=== PATIENT | male | born 1985 | race Caucasian/White ===

== ENCOUNTER 2019-06-29 07:37 | Emergency (ER) | payer MEDICARE, MEDICAID, SELFPAY ==
[2019-06-29 07:38] VITALS: BP 202/112; PULSE 62; RESP 17; TEMP 36.2; O2SAT 96; BMI 39.9
--- NOTE | 2019-06-29 08:07 | ED.DCSUM_ITS ---
- ER Visit Summary Date of Service: 06/29/19 Chief Complaint: Dental pain History of Present Illness: The patient is a 34 M who presents with right-sided dental pain that has been getting worse over the past 5 days. Patient describes his pain as aching. Patient states he knows he has dental caries over the right upper second molar but has not seen a dentist about this. Patient states the pain is worse when he lays flat. Patient admits to some swelling of his upper jaw. Patient also admits to hot and cold sensitivity. Patient denies any fevers but admits to subjective chills. Patient states the pain causes him to have some shortness of breath and palpitations at times. Physical Examination: Vital signs are stable except for an elevated blood pressure of 202/112. Patient is afebrile. Patient is in no acute distress. Oral mucosa is pink and moist. Oropharynx is clear. There is a large dental carry noted over the right upper second premolar. There is also a dental carry over the right upper second molar. There is tenderness to percussion on these teeth. There is no fluctuance. There is some mild gingival edema. There is no evidence of any abscess. There is no sublingual edema or erythema. Heart was regular rate and rhythm. Lungs showed few scattered wheezes. There is good respiratory effort noted. Emergency Department Course and Treatment: Patient was given a dose of amoxicillin and [place] here. Patient was given a prescription for amoxicillin. Patient was instructed to take Tylenol or ibuprofen as needed for pain. Patient was instructed to follow-up with his dentist in 5 to 7 days. Patient understood and was agreeable with the plan. All questions were answered. Disposition: Discharge home Impression: Infected dental caries This note was generated with [employer] dictation software. It may contain incorrect words, spelling, and punctuation that were not noted in review of the chart prior to signing ED Disposition - Plan for ED Patient: Disposition: Home or Assisted Living Diagnosis: Infected dental caries Prescriptions: Amoxicillin 500 mg PO TID #30 tab Prescription Printed Referrals: Darrius Dale MD [Primary Care Provider] - 5-7 Days Additional Instructions: Follow-up with your dentist in 5 to 7 days for definitive care of your teeth.
[2019-06-29] MEDS: AMOXICILLIN 500 MG CAPSULE PO (08:30)
[2019-06-29] MEDS: HYDROcodone Bitartrate/Apap 5/325 Tablet PO (08:30)
== END 2019-06-29 08:34 | disposition home or self-care (01) ==
LOC: ED 08:13
PROVIDERS: Emergency Provider Emergency Medicine; Family Provider Family Medicine; PCP Family Medicine
DX: K04.7 Periapical abscess without sinus (principal); K02.9 Dental caries, unspecified; Z72.0 Tobacco use
CPT/HCPCS: 99283

== ENCOUNTER → 2021-02-08 15:38 | Outpatient (CLI) | payer MEDICARE, MEDICAID, SELFPAY ==
[2021-02-08 16:55] LABS: Erythrocyte Sedimentation Rate 3 mm/hr (0-20)
[2021-02-08 16:58] LABS: CRP 3.44 mg/L (0.0-3.0); Rheumatoid Factor < 10.0 IU/mL (<15)
[2021-02-12 07:31] LABS: ANTINUCLEAR ANTIBODIES DIRECT Negative (Negative)
[2021-02-14 08:54] LABS: CCP IgG Antibodies 18 units (0-19)
== END ==
PROVIDERS: PCP Family Medicine; Visit Provider Family Medicine
DX: M25.50 Pain in unspecified joint (principal)
CPT/HCPCS: 36415; 85652; 86038; 86140; 86200; 86431

== ENCOUNTER 2021-04-27 14:37 | Emergency (ER) | payer MEDICARE, MEDICAID, SELFPAY ==
[2021-04-27 14:38] VITALS: BP 168/93; PULSE 80; RESP 16; TEMP 36.7; O2SAT 97; BMI 38.4
== END 2021-04-27 15:06 | disposition left against medical advice (07) ==
LOC: ED 16:00
PROVIDERS: PCP Family Medicine
DX: Z53.21 Procedure and treatment not carried out due to patient leaving prior to being seen by health care provider (principal)

== ENCOUNTER 2022-02-20 11:50 | Emergency (ER) | payer MEDICARE, MEDICAID, SELFPAY ==
[2022-02-20 11:51] VITALS: BP 137/93; PULSE 87; RESP 16; TEMP 36.2; O2SAT 100; BMI 30.3
== END 2022-02-20 12:25 | disposition left against medical advice (07) ==
LOC: ED 12:25
PROVIDERS: PCP Family Medicine
DX: Z53.21 Procedure and treatment not carried out due to patient leaving prior to being seen by health care provider (principal)

== ENCOUNTER 2022-07-09 08:38 | Emergency (ER) | payer MEDICARE, MEDICAID, SELFPAY ==
[2022-07-09 08:39] VITALS: BP 159/90; PULSE 70; RESP 18; TEMP 36.6; O2SAT 95; BMI 30.9
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
--- NOTE | 2022-07-09 08:51 | RAD_ITS ---
STUDY: X-RAY - UNILATERAL RIBS ( RIGHT ) WITH CHEST REASON FOR EXAM: Male, 37 years old. Injury, pain TECHNIQUE - RIBS: 4 view(s) of the ribs. TECHNIQUE - CHEST: Single PA view of the chest. COMPARISON: None. FINDINGS - RIBS: Normal visualized ribs without a demonstrated fracture. FINDINGS - CHEST: The lungs are clear and expanded. There is no demonstrated pleural abnormality. Normal size heart. Normal mediastinum and anila. Normal visualized pulmonary arteries. Normal visualized aortic arch and descending thoracic aorta. Normal visualized thoracic spine. Normal visualized ribs, clavicles, and shoulders. There is no demonstrated abnormality of the visualized soft tissue structures of the upper abdomen. RAD/Ribs Uni Min 3V w/PA Chest IMPRESSION: RIBS: Normal x-ray examination of the ribs. CHEST: Normal x-ray examination of the chest. Electronically Signed: Shawn Dey MD at 9:39 EDT ,
--- NOTE | 2022-07-09 10:03 | ED.RN ---
PT LEFT. REPORTS HAS TO MEET HIS LANDLORD.
== END 2022-07-09 10:06 | disposition left against medical advice (07) ==
LOC: ED 09:27
PROVIDERS: Emergency Provider Emergency Medicine; Visit Provider Emergency Medicine
DX: S20.211A Contusion of right front wall of thorax, initial encounter (principal); F17.210 Nicotine dependence, cigarettes, uncomplicated; W19.XXXA Unspecified fall, initial encounter
CPT/HCPCS: 71101; 99282

== ENCOUNTER 2022-08-09 23:20 | Emergency (ER) | payer MEDICARE, MEDICAID, SELFPAY ==
[2022-08-09 23:21] VITALS: BP 146/92; PULSE 90; RESP 16; TEMP 35.6; BMI 33.4
[2022-08-09 23:23] VITALS: BP 146/92; PULSE 90; RESP 16; TEMP 35.6
--- NOTE | 2022-08-09 23:57 | ED.VIS.DENTA ---
HPI History of Present Illness Chief Complaint: Dental Informant: patient Onset/Context/Timing Onset: Month(s) (several) Context: Gradual Onset Timing: Continuous and Waxes and wanes Quality: throbbing Location: entire mouth, but usually is R mandibular molar Current Severity: Severe Maximum Severity: Severe Worsened by: air, food/water, chewing Relieved by: - (nothing despite multiple pain medications, but Antibiotics have helped) Associated Symptoms Assocated Symptom - Dental: Negative for fever, jaw swelling or face swelling Narrative Narrative: Patient states he has been dealing with pain and problems with teeth for months. He states he was on laxatives and lost a lot of weight and since then he has had dental problems that he never had. He has seen a dentist for this issue, he was told that the tooth that is the problem which is a right mandibular molar has a filling in it, however there is a crack in the tooth somewhere, he needs a root canal and a redo on the filling, he is on a waiting list and is supposed to have all this done in maybe 3 weeks. In that period of time he has been on several courses of antibiotics, the last time he took an antibiotic dose was about 3 weeks ago. Initially he was on amoxicillin and it did not seem to help and then clindamycin did seem to help for about a week or 2, but things have gradually become worse, now he states my entire mouth hurts and it is radiating into both ears and the back of my neck. He denies any fevers, chills, bleeding, purulent discharge, or other symptoms. No headache. He has tried prescription pain medications, [id number] NSAIDs and Tylenol and nothing helps so he has avoided all of those medications recently and just wants antibiotics. [facility] Medical History Bipolar disorder Depression Obsessive compulsive disorder Home Medications clindamycin HCl 150 mg capsule 300 mg PO 4X/DAY #80 CAPSULES 08/09/22 [Rx Last Taken Unknown] Allergy/AdvReac Type Severity Reaction Status Date / Time iodine Allergy Rash Verified 07/09/22 08:41 shellfish derived Allergy Anaphylaxis Verified 07/09/22 08:41 Social History Smoking Status: Current every day smoker tobacco type: cigarettes ROS ROS ED Constitutional Constitutional ED: Denies chills or fever(s) Eyes Eyes: Denies change in vision or double vision ENT ENT ED: Reports dental pain, ear pain bilateral and sinus pain; Denies rhinorrhea, sore throat or throat swelling Cardiovascular Cardiovascular: Denies chest pain or palpitations Respiratory/Chest Respiratory/Chest: Denies cough or dyspnea Integumentary Denies abscess or rash Neurologic Neurologic: Denies headache(s), paresthesias or weakness EXAM Physical Exam Const Vital Signs: 08/09/22 23:21 08/09/22 23:23 Temperature 96.0 F L 96.0 F L Temperature Source Temporal Temporal Pulse Rate 90 90 Respiratory Rate 16 16 Blood Pressure 146/92 H 146/92 H Blood Pressure Mean 110 110 Positive well nourished and well developed General Appearance ED: well developed and NAD HEENT Reports TM's clear Face and Sinus: sinuses nontender Tympanic Membrane ED: Yes TM's clear Mouth ED: Yes oral and palatal mucosa normal, Yes lips normal, Yes tongue normal, No oral and palatal mucosa abnormal and No salivary gland abnormal Mouth: oral and palatal mucosa normal, lips normal, tongue normal, No oral and palatal mucosa abnormal and No salivary gland abnormal Teeth and Gingiva: Negative for abnormal tooth and associated gingiva or caries Throat: posterior oropharynx normal Eyes PERRL and EOMs intact bilaterally Neck no lymphadenopathy and supple Resp normal respiratory effort Neuro oriented x3 and CN's II-XII intact bilaterally Sensorium / Orientation: alert Gait (Neuro): normal gait Psych mental status grossly normal and thought process normal Skin no rashes or lesions noted and no wounds MDM MDM MDM Narrative Medical decision making narrative: Patient has no trismus, he has normal oropharynx. There is no gingival abnormality or signs of infection or bleeding or hypertrophy/swelling/abscess. His exam is essentially normal. He really is perseverating on all of this, and states that his entire mouth/dentition/gingiva all hurt equally. He has some minor tenderness on the affected molar which is #30. I offered a CT to prove that he does not have some type of deep tissue infection, he declines and does not want it. Just wants antibiotics because that is the only thing that seemed to help and he does not want any pain medications. He is usually constipated, and states he did not have diarrhea with the other courses. Started on clindamycin and referred back to dentistry. Discharge Plan Triage Chief Complaint: Dental ED Provider: Chriss Tracey Dx/Rx/DC Orders Clinical Impression: Odontalgia Instructions: ED Dental Pain Prescriptions: New clindamycin HCl 150 mg capsule 300 mg PO 4X/DAY Qty: 80 0RF Primary Care Provider: Care Physician,No Primary Referrals: Care Physician,No Primary [Primary Care Provider] - Dentist,Your [STAFF PHYSICIAN] - As soon as possible Disposition Disposition: Home, Self Care
[2022-08-10] MEDS: Clindamycin HCl 150 MG Capsule 300 MG PO (00:05)
[2022-08-10 00:11] VITALS: BP 144/88; PULSE 74; RESP 15; TEMP 37.1; O2SAT 99
== END 2022-08-10 00:13 | disposition home or self-care (01) ==
LOC: ED 23:59
PROVIDERS: Emergency Provider Emergency Medicine; Visit Provider Emergency Medicine
DX: K08.89 Other specified disorders of teeth and supporting structures (principal); F17.210 Nicotine dependence, cigarettes, uncomplicated
CPT/HCPCS: 99283

== ENCOUNTER 2023-04-13 14:01 | Emergency (ER) | payer MEDICARE, MEDICAID, SELFPAY ==
[2023-04-13 14:02] VITALS: BP 162/95; PULSE 120; RESP 25; TEMP 36.8; O2SAT 100; BMI 31.4
[2023-04-13 14:05] VITALS: PULSE 115; RESP 26; O2SAT 99
--- NOTE | 2023-04-13 14:11 | CT_ITS ---
EXAM: CT HEAD WITHOUT INTRAVENOUS CONTRAST CLINICAL INDICATION: mental status change TECHNIQUE: Multiple axial images were obtained of the head without intravenous contrast. This CT exam was performed using one or more of the following dose reduction techniques: automated exposure control, adjustment of the mA and/or kV according to patient size, and/or use of iterative reconstruction technique. RADIATION DOSE: CTDIvol = 47.06 mGy, DLP = 943.26 mGy-cm COMPARISON: No relevant prior studies available. FINDINGS: BRAIN AND EXTRA-AXIAL SPACES: Unremarkable. No intra- or extra-axial hemorrhage. No evidence of acute infarct. No intracranial mass or mass effect. There is preservation of the lee/white matter interface. Posterior fossa structures are unremarkable. Ventricles are appropriate for age. No hydrocephalus. Basal cisterns are patent. BONES/JOINTS: Unremarkable. No discrete lytic or blastic abnormalities. SINUSES: Unremarkable as visualized. Clear. MASTOID AIR CELLS: Unremarkable. Clear. ORBITS: Visualized globes, extraocular muscles, optic nerves and retrobulbar fat appear unremarkable. CT/Brain/Head without Contrast IMPRESSION: Negative head/brain CT without intravenous contrast. Electronically Signed: David Ledbetter MD at 14:45 EDT ,
--- NOTE | 2023-04-13 14:11 | EKG12_ITS ---
Test Reason : Blood Pressure : / mmHG Vent. Rate : 117 BPM Atrial Rate : 117 BPM P-R Int : 148 ms QRS Dur : 094 ms QT Int : 336 ms P-R-T Axes : 065 073 -28 degrees QTc Int : [address] & T wave abnormality, consider inferolateral ischemia Abnormal ECG Confirmed by DIANE ALANIS, SHELLY ([id number]), assistant editor [place]ERMIN[place] ([id number]) on 04/15/2023 10:47:56 AM Referred By: ARNAUD Confirmed By:SHELLY CONTRERAS MD
--- NOTE | 2023-04-13 14:12 | ED.RN ---
NO STROKE TEAM PER DR LARES
--- NOTE | 2023-04-13 14:13 | ED.RN ---
PT DOES ADMIT TO EATING EDIBLES EARLIER
--- NOTE | 2023-04-13 14:19 | RAD_ITS ---
EXAM: XR CHEST, 1 VIEW CLINICAL INDICATION: Shortness of Breath TECHNIQUE: Frontal view of the chest. COMPARISON: 8.9.22 FINDINGS: LUNGS AND PLEURAL SPACES: Unremarkable. No consolidation or edema. No pneumothorax. No effusion. HEART: Unremarkable. Cardiac silhouette not enlarged. MEDIASTINUM: Central airways and mediastinal contour are unremarkable. BONES/JOINTS: Unremarkable. SOFT TISSUES: Unremarkable. RAD/Chest 1 View (Portable) IMPRESSION: No radiographic evidence of acute cardiopulmonary disease. Electronically Signed: David Ledbetter MD at 14:45 EDT ,
[2023-04-13 14:26] LABS: Bedside Glucose 82 mg/dL (74-106)
[2023-04-13 14:26] LABS: Absolute Lymphocyte Count 3.53 X10^3/uL (0.83-4.51); Absolute Neutrophil Count 8.4 X10^3/uL (2.0-7.7); Basophil# 0.07 X10^3/uL; Basophil% 0.5 % (0-1); Eosinophil# 0.18 X10^3/uL; Eosinophils% 1.4 % (0-5); Hematocrit 47.4 % (40-54); Hemoglobin 16.8 g/dL (13.0-16.5); Lymphocyte # 3.53 X10^3/ul (0.83-4.51); Lymphocyte % 26.7 % (19-41); Mean Corp Hgb Conc 35.4 g/dL (32-36); Mean Corpuscular Hgb 31.9 pg (27.0-32.0); Mean Corpuscular Volume 89.9 fL (80-94); Mean Platelet Vol. 10.4 fl (6.2-12.0); Monocyte# 1.02 X10^3/uL; Monocyte% 7.7 % (0-10); NRBC Flagged by Analyzer 0 % (0-5); Neutrophil # 8.38 X10^3/uL (2.7-7.7); Neutrophil % 63.4 % (47-70); Platelet Count 259 K/mm3 (150-450); RBC Distribution Width SD 39.3 fl (35.1-43.9); Red Blood Count 5.27 M/mm3 (4.6-6.2); White Blood Count 13.2 K/mm3 (4.4-11.0)
[2023-04-13 14:39] LABS: ALB/GLOB Ratio 1.2 RATIO (0.9-2.4); AST(SGOT) 26 U/L (15-37); Alanine Aminotransfer ALT/SGPT 23 U/L (16-61); Alkaline Phosphatase 55 U/L (45-117); Anion Gap 11 (5-15); BUN 15 mg/dL (7-18); BUN/Creat Ratio 13.4 RATIO (10-20); Chloride 103 mmol/L (98-107); Creatinine, Serum 1.12 mg/dL (0.70-1.30); EST Glomerular Filtration Rate 79 mL/min (>60); Est Glom Filt Rate - Afr Amer 96 mL/min (>60); Estimated Creatinine Clearance 92.06 ml/min; Globulin 3.4 g/dL (2.2-4.2); Glucose 105 mg/dL (74-106); Potassium 2.9 mmol/L (3.5-5.1); Protein, Total 7.4 g/dL (6.4-8.2); Sodium Level 137 mmol/L (136-145); Troponin-I HS 5 pg/mL (3.0-78.0)
[2023-04-13 15:04] LABS: Alcohol, Blood (Medical)-Serum < 3.0 mg/dL
[2023-04-13] MEDS: 0.9% Normal Saline 1,000 ML 999 ML IV (15:15)
[2023-04-13] MEDS: Potassium Chloride Oral Tablet 20 MEQ 40 MEQ PO (15:15)
[2023-04-13 15:17] VITALS: BP 133/84; PULSE 90; RESP 22; O2SAT 96
--- NOTE | 2023-04-13 15:36 | EX.ED.DYSGE1 ---
HPI History of Present Illness Chief Complaint: Shortness of Breath Narrative Narrative: 37-year-old male who denies significant past medical history presents with multiple somatic complaints. I was called to the room to see the patient because he was reportedly slumped over in his wheelchair. Upon arrival to the room, he is awake, but mildly dysarthric. He states that his mouth is burning and that is tongue turned blue. Initially, he denies ingesting any medications or substances, and presented because of the mental status change. He states that last night he was short of breath but denies any fevers or chills. No cough, or other symptoms. [facility] Medical History Bipolar disorder Depression Obsessive compulsive disorder Home Medications clindamycin HCl 150 mg capsule 300 mg PO 4X/DAY #80 CAPSULES 08/09/22 [Rx Last Taken Unknown] Allergy/AdvReac Type Severity Reaction Status Date / Time iodine Allergy Rash Verified 07/09/22 08:41 shellfish derived Allergy Anaphylaxis Verified 07/09/22 08:41 Social History Smoking Status: Current every day smoker tobacco type: cigarettes ROS ROS ED ROS Narrative Constitutional: No fever, no chills. States feels shaky. HEENT: No sore throat. No neck pain. No loss of vision. No rhinorrhea. Blue tongue. Cardiovascular: No chest pain. No palpitations. No pedal edema. Respiratory: No cough, positive shortness of breath. Abdominal: No abdominal pain. No nausea. No vomiting. Genitourinary: No dysuria. No hematuria. Musculoskeletal: No myalgias. No arthralgias. Multiple muscle spasms. Neurologic: No headaches. No dizziness. No lightheadedness. Problems speaking. Skin: No rash. No change in color. Psychiatric: No depression. No anxiety. EXAM Physical Exam Narrative Exam Narrative: Afebrile. Vital signs noted. HEENT: Normocephalic. Atraumatic. PERRL, EOMI. Neck soft and supple. No point tenderness or step off. Light blue/aqua tongue Cardiovascular: Tachycardia, no murmurs, rubs, or gallops appreciated. Respiratory: No tachypnea. Lungs clear to auscultation bilaterally. Gastrointestinal: Abdomen soft, nontender, with normoactive bowel sounds. No rebound or guarding. Neurological: Awake. Alert. Oriented x3. Nonfocal, nonlateralizing. Mild dysarthria, inconsistent. Skin: No rash. Normal color. No pallor. Musculoskeletal: No pedal edema. Full range of motion extremities. Const Vital Signs: 04/13/23 14:02 04/13/23 14:05 04/13/23 14:06 Temperature 98.2 F Temperature Source Oral Pulse Rate 120 H 115 H Respiratory Rate 25 H 26 H Respiratory Effort Short of Breath Blood Pressure 162/95 H Blood Pressure Mean 117 Pulse Ox 100 99 Oxygen Delivery Method Room Air Room Air 04/13/23 15:17 Temperature Temperature Source Pulse Rate 90 Respiratory Rate 22 H Respiratory Effort Blood Pressure 133/84 H Blood Pressure Mean 100 Pulse Ox 96 Oxygen Delivery Method Nasal Cannula MDM MDM MDM Narrative Medical decision making narrative: Comprehensive work-up was pursued. His pulse ox is 100% on room air without evidence of hypoxia. He was put on nasal cannula oxygen for comfort. I do not feel that stroke team is indicated. He states he started having problems with speech 20 minutes prior to arrival perhaps, but his exam is inconsistent. Additionally, RN spoke with the patient and he admitted to taking 1 edible this morning. He states that he bought them from a store that sells THC products, and he has taken them before, but his tongue has never turned blue. In review of his laboratory work, he has elevated white count of 13.2 which I think is nonspecific. Hemoglobin is slightly hemoconcentrated at 16.8. Platelet count normal at 259. Potassium is low at 2.9 which was replaced orally with 40 mill equivalents. BUN normal at 15 and creatinine normal at 1.12. LFTs are normal. High-sensitivity troponin is 5. EKG was obtained and interpreted by myself as sinus tachycardia at 117 bpm without ectopy or acute ST changes. No STEMI. Upon repeat examination, he has a normal heart rate in the 80s, and at 1517, heart rate was 90. He is no longer tachycardic. Ethyl alcohol is negative. Urine for drugs of abuse is currently pending. His dysarthria is improving slightly, and sometimes is inconsistent. He does not have an expressive aphasia that is noticeable currently. I reviewed the CT of his brain and the radiology report which shows no acute process or mass. Additionally, chest x-ray was obtained for his shortness of breath and interpreted by myself independently. I see no evidence of pneumonia, and do not feel that antibiotics are indicated. There is no pneumothorax. I do feel that his mental status change may have been secondary to overdose/THC. At approximately 1615, upon repeat examination, he is speaking normally and feels improved after IV fluids. I reviewed his urine for drugs of abuse and is positive for cannabinoids. He does admit that he took 4 of the edible Gummies yesterday, and 1 today. I do feel that his mental status change and dysarthria was best explained by intoxication with THC. At this point in time, as he is speaking normally and feels improved, I feel he can be discharged safely home with follow-up. He was referred to a primary care provider. He was told to avoid use of THC in the future. Return instructions were reviewed. Disposition is discharged home in stable condition. History & Record Review Discussion w/independent historian: Patient and Family Additional record(s) reviewed:: Prior ED visit Lab Data Attestation: I reviewed the patient's lab results. Labs: Laboratory Results - last 24 hr 04/13/23 04/13/23 04/13/23 14:06 14:16 14:16 WBC 13.2 H RBC 5.27 Hgb 16.8 H Hct 47.4 MCV 89.9 MCH 31.9 MCHC 35.4 RDW Std Deviation 39.3 RDW Coeff of Nichelle 12.0 Plt Count 259 MPV 10.4 Immature Gran % (Auto) 0.300 Neut % (Auto) 63.4 Lymph % (Auto) 26.7 Grady % (Auto) 7.7 Eos % (Auto) 1.4 Baso % (Auto) 0.5 Absolute Neuts (auto) 8.4 H Absolute Lymphs (auto) 3.53 Nucleated RBC % 0 Sodium 137 Potassium 2.9 L Chloride 103 Carbon Dioxide 23.0 Anion Gap 11 BUN 15 Creatinine 1.12 Estim Creat Clear Calc 92.06 Est GFR (MDRD) Af Amer 96 Est GFR (MDRD) Non-Af 79 BUN/Creatinine Ratio 13.4 Glucose 105 Calcium 9.0 Total Bilirubin 0.50 AST 26 ALT 23 Alkaline Phosphatase 55 Troponin I High Sens 5 Total Protein 7.4 Albumin 4.0 Globulin 3.4 Albumin/Globulin Ratio 1.2 Urine Opiates Screen Urine Methadone Screen Ur Barbiturates Screen Ur Phencyclidine Scrn Ur Amphetamines Screen MDMA (Ecstasy) Screen U Benzodiazepines Scrn Urine Cocaine Screen U Cannabinoids Screen Ur Drug Screen Comment Ethyl Alcohol POC Glucose 82 04/13/23 04/13/23 14:16 15:40 WBC RBC Hgb Hct MCV MCH MCHC RDW Std Deviation RDW Coeff of Nichelle Plt Count MPV Immature Gran % (Auto) Neut % (Auto) Lymph % (Auto) Grady % (Auto) Eos % (Auto) Baso % (Auto) Absolute Neuts (auto) Absolute Lymphs (auto) Nucleated RBC % Sodium Potassium Chloride Carbon Dioxide Anion Gap BUN Creatinine Estim Creat Clear Calc Est GFR (MDRD) Af Amer Est GFR (MDRD) Non-Af BUN/Creatinine Ratio Glucose Calcium Total Bilirubin AST ALT Alkaline Phosphatase Troponin I High Sens Total Protein Albumin Globulin Albumin/Globulin Ratio Urine Opiates Screen NEGATIVE Urine Methadone Screen NEGATIVE Ur Barbiturates Screen NEGATIVE Ur Phencyclidine Scrn NEGATIVE Ur Amphetamines Screen NEGATIVE MDMA (Ecstasy) Screen NEGATIVE U Benzodiazepines Scrn NEGATIVE Urine Cocaine Screen NEGATIVE U Cannabinoids Screen POSITIVE H Ur Drug Screen Comment Ethyl Alcohol < 3.0 POC Glucose Radiography Diagnostic Testing: Clinical Impression(s) from Imaging Studies Brain CT 04/13/23 14:11 IMPRESSION: Negative head/brain CT without intravenous contrast. Electronically Signed: David Ledbetter MD at 14:45 EDT Reading Location ID and State: [facility] / [place] , Service support , Chest X-Ray 04/13/23 14:19 IMPRESSION: No radiographic evidence of acute cardiopulmonary disease. Electronically Signed: David Ledbetter MD at 14:45 EDT , Discharge Plan Triage Chief Complaint: Shortness of Breath ED Provider: Raymundo Snow Dx/Rx/DC Orders Clinical Impression: Dysarthria, Hypokalemia, Blue tongue, Marijuana use Instructions: ED Hypokalemia, ED Marijuana Abuse Prescriptions: No Action clindamycin HCl 150 mg capsule 300 mg PO 4X/DAY Qty: 80 0RF Primary Care Provider: Care Physician,No Primary Referrals: Gunner Borjas MD [Med Staff - Active Staff] - As soon as possible Care Physician,No Primary [Primary Care Provider] - Disposition Disposition: Home, Self Care
[2023-04-13 16:09] LABS: Amphetamine Urine VISTA NEGATIVE (<1000 ng/mL); Barbiturate Urine VISTA NEGATIVE (< 200 ng/mL); Benzodiazepine Urine VISTA NEGATIVE (< 200 ng/mL); Cocaine Urine VISTA NEGATIVE (< 300 ng/mL); Ecstacy Urine VISTA NEGATIVE (< 500 ng/mL); Methadone Urine VISTA NEGATIVE (< 300 ng/mL); PCP Urine VISTA NEGATIVE (< 25 ng/mL); THC Urine VISTA POSITIVE (< 50 ng/mL); Vista UDS pH Range 6
[2023-04-13 16:35] VITALS: BP 127/86; PULSE 86; RESP 16; O2SAT 99
== END 2023-04-13 16:37 | disposition home or self-care (01) ==
PROVIDERS: Emergency Provider Emergency Medicine; Visit Provider Emergency Medicine
DX: R47.1 Dysarthria and anarthria (principal); E87.6 Hypokalemia; F12.90 Cannabis use, unspecified, uncomplicated; F17.210 Nicotine dependence, cigarettes, uncomplicated; R41.82 Altered mental status, unspecified
CPT/HCPCS: 70450; 71045; 80053; 80307; 82077; 82962; 84484; 85025; 93005; 96360; 99284; J7030; A4216

== ENCOUNTER 2024-11-28 10:24 | Emergency (ER) | payer MEDICARE, MEDICAID, SELFPAY ==
[2024-11-28 10:25] VITALS: BP 141/87; PULSE 59; RESP 20; TEMP 35.9; O2SAT 100; BMI 29.5
--- NOTE | 2024-11-28 11:20 | EDS_ITS ---
HPI <MISAEL Daniel - Last Filed: 11/28/24 11:23> History of Present Illness Chief Complaint: Laceration Narrative Narrative: 39-year-old male presents with a laceration to his left index finger. He was cutting a bagel with a bread knife when it slipped and cut his finger. Bleeding is controlled. Last tetanus unknown. PFSH <MISAEL Daniel - Last Filed: 11/28/24 11:23> [facility] Medical History (Updated 11/28/24 @ 11:19 by MISAEL Daniel) Laceration Obsessive compulsive disorder Depression Bipolar disorder Home Medications ?Medication ?Instructions ?Recorded ?Last Taken ?Type NK 11/28/24 Unknown History Allergy/AdvReac Type Severity Reaction Status Date / Time iodine Allergy Rash Verified 11/28/24 10:26 shellfish derived Allergy Anaphylaxis Verified 11/28/24 10:26 Social History Smoking Status: Current every day smoker tobacco type: cigarettes ROS <MISAEL Daniel - Last Filed: 11/28/24 11:23> ROS ED ROS Narrative Neuro: Negative for motor/sensory dysfunction. Skin: Positive for laceration. Musc: Negative for joint pain, swelling. EXAM <MISAEL Daniel - Last Filed: 11/28/24 11:23> Physical Exam Narrative Exam Narrative: CONST: Patient sitting in no acute distress. EYES: Normal inspection. SKIN: 1.5 cm linear laceration left index finger on the radial aspect of the PIP joint to the level of the subcutaneous tissue. There is no visible tendon. Full range of motion of the left hand and digits, normal motor and sensory function in median radial ulnar distributions, 2+ radial pulse and brisk cap refill. There is no active bleeding, no foreign body. NEURO: Alert and answering questions appropriately. PSYCH: Normal affect. Const Vital Signs: 11/28/24 10:25 Temperature 96.7 F L Temperature Source Temporal Pulse Rate 59 L Respiratory Rate 20 H Blood Pressure 141/87 H Blood Pressure Mean 105 Pulse Ox 100 Oxygen Delivery Method Room Air <Dr. Harris Aviles DO - Last Filed: 11/28/24 11:39> Physical Exam Const Vital Signs: 11/28/24 10:25 Temperature 96.7 F L Temperature Source Temporal Pulse Rate 59 L Respiratory Rate 20 H Blood Pressure 141/87 H Blood Pressure Mean 105 Pulse Ox 100 Oxygen Delivery Method Room Air PROC <MISAEL Daniel - Last Filed: 11/28/24 11:23> Procedures Lacerations Left index finger: Length: 0.59 in Depth: Skin Shape: Linear Prep: Sterile Conditions Laceration repair: Irrigated and Lidocaine Irrigated (ml): 200 Number of Sutures/Bhargav: 3 Suture Information: Ethilon and 5-0 MDM <MISAEL Daniel - Last Filed: 11/28/24 11:23> [facility] Narrative Medical decision making narrative: Patient has a 1.5 cm laceration to his left index finger. He is neurovascularly intact and has no tendon injury. There is no indication for x-rays. See procedure note?it was closed with 3 simple erupted sutures. Tetanus updated. Wound care instructions given. Discharged home. <Dr. Harris Aviles DO - Last Filed: 11/28/24 11:39> [facility] Narrative Medical decision making narrative: Patient has a 1.5 cm laceration to his left index finger. He is neurovascularly intact and has no tendon injury. There is no indication for x-rays. See procedure note?it was closed with 3 simple erupted sutures. Tetanus updated. Wound care instructions given. Discharged home. I have personally performed a face to face assessment of the patient and have reviewed the BRET Note. I performed a substantive portion of the visit including all aspects of the following. My gillette findings include: History is finger laceration from knife while cutting a bagel. Bleeding controlled. Exam is there is a 1.5 cm linear laceration of the left index finger. I do not appreciate tendon or neurovascular deficits. Bleeding is controlled. Medical Decison Making local wound care by physician tutoring assistant. Please see their note. Stitches to be removed 7 to 10 days local wound care discussed History & Record Review Discussion w/independent historian: Patient Discharge Plan Triage Chief Complaint: Laceration ED Midlevel Provider: Elizabeth Bangura ED Provider: Harris Aviles Dx/Rx/DC Orders Clinical Impression: Laceration of left index finger Instructions: ED Laceration Extremity Prescriptions: No Action NK Primary Care Provider: Care Physician,No Primary Referrals: Care Physician,No Primary [Primary Care Provider] - Activity Restrictions/Additional Instructions: Keep clean and have stitches removed in 1 week. Return if you develop any signs of infection like redness, swelling, pus, fever or increased pain. Print Language: Yemeni Disposition Disposition: Home, Self Care Discharge Date/Time: 11/28/24 11:28
[2024-11-28] MEDS: Diphth,Pertuss(Acell),Tet Vac 0.5 ML Vial IM (11:24)
== END 2024-11-28 11:28 | disposition home or self-care (01) ==
PROVIDERS: Emergency Provider Emergency Medicine; Visit Provider Emergency Medicine
DX: S61.211A Laceration without foreign body of left index finger without damage to nail, initial encounter (principal); F31.9 Bipolar disorder, unspecified; F42.9 Obsessive-compulsive disorder, unspecified; F17.210 Nicotine dependence, cigarettes, uncomplicated; Z23 Encounter for immunization; X58.XXXA Exposure to other specified factors, initial encounter
CPT/HCPCS: 12001; 90471; 90715; 99283

== ENCOUNTER 2025-03-15 04:52 | Emergency (ER) | payer MEDICARE, MEDICAID, SELFPAY ==
[2025-03-15 04:53] VITALS: BP 154/86; PULSE 120; RESP 20; TEMP 36.4; O2SAT 96
--- NOTE | 2025-03-15 05:10 | RAD_ITS ---
EXAM: Foot minimum three views x-ray CLINICAL HISTORY: Pain between 5th and 4th toes COMPARISON: None available TECHNIQUE: Three views right foot FINDINGS: Small calcific density along the lateral margin of the 5th metatarsophalangeal joint with considerations including possibility of fracture fragmentation or possible sesamoid formation, clinically correlate. No dislocation. No radiopaque foreign body. No periosteal reaction. The joint spaces appear within limits. RAD/Foot min 3 Views IMPRESSION: Small calcific density along the lateral margin of the 5th metatarsophalangeal joint with considerations including possibility of fracture fragmentation or possible sesamoid formation, clinically correlate. Reading Location: [id number]
--- NOTE | 2025-03-15 05:12 | EX.ED.DYSGE1 ---
HPI History of Present Illness Chief Complaint: Lower Extremity Injury Narrative Narrative: Patient is a 39-year-old male past medical history of obsessive-compulsive disorder, bipolar, depression who presents to the emergency department chief complaint of left foot pain and swelling. Patient states that for the last 2 weeks he noted that he has had foot pain and noted that he recently started developing swelling and redness between his 4th and 5th toe on the left foot. He states that he went to [facility] and was diagnosed with athlete's foot and was given a cream to place on his foot. He states that the cream makes the pain worse and is not helping. He states that a friend of his that was a physician was advised him to discontinue using the cream which he did. Patient states that he is having increasing pain therefore came here for further evaluation management. He states that he has a primary care appointment at 2:00 this afternoon. [facility] Medical History Laceration Obsessive compulsive disorder Depression Bipolar disorder Home Medications ?Medication ?Instructions ?Recorded ?Last Taken ?Type NK 11/28/24 Unknown History Allergy/AdvReac Type Severity Reaction Status Date / Time iodine Allergy Rash Verified 03/15/25 04:53 shellfish derived Allergy Anaphylaxis Verified 03/15/25 04:53 Family History no significant family his Social History Smoking Status: Current every day smoker tobacco type: cigarettes ROS ROS ED ROS Narrative Constitutional: Denies any fevers, chills, headaches malaise, dizziness Neurological: Denies numbness, weakness, tingling Musculoskeletal: Complains of left foot pain as noted above Skin: Complains of redness and swelling of the left foot as noted above EXAM Physical Exam Narrative Exam Narrative: General: Patient lying in bed rest comfortably not appear to be acute distress Head: Atraumatic, normocephalic Eyes: PERRL bilateral, EOMI bilateral, no conjunctival injection noted Neck: Soft, supple and trachea midline Cardiovascular: Patient tachycardic with regular rhythm Extremities: DP pulses +2/4 in the bilateral lower extremities, +5/5 strength noted in the bilateral upper and lower extremities Neurological: Patient follow commands knew that he was at [facility] years 2024. Sensation grossly intact in the bilateral lower extremities Skin: Warm, dry, patient has erythema noted to the dorsal aspect of his left foot and swelling between the 4th and 5th digits Const Vital Signs: 03/15/25 04:53 Temperature 97.5 F L Temperature Source Oral Pulse Rate 120 H Respiratory Rate 20 H Blood Pressure 154/86 H Blood Pressure Mean 108 Pulse Ox 96 Oxygen Delivery Method Room Air MDM MDM MDM Narrative Medical decision making narrative: Patient is a 39-year-old male who presents to the emergency department the chief complaint of left foot pain and swelling. On the differential diagnose includes but not limited to left foot cellulitis, abscess, retained foreign body. Once workup is obtained reviewed he will be reevaluated. Patient was offered something for pain however he declined. Patient x-ray of foot reviewed by myself and by radiology which showed small calcific density along the lateral margin of the fifth metatarsal phalangeal joint with considerations including possibility of fracture fragment or possible sesamoid formation correlate clinically. Patient eloped prior to discussing the results and further evaluation. Radiography Diagnostic Testing: Clinical Impression(s) from Imaging Studies Foot X-Ray 03/15/25 05:10 IMPRESSION: Small calcific density along the lateral margin of the 5th metatarsophalangeal joint with considerations including possibility of fracture fragmentation or possible sesamoid formation, clinically correlate. Reading Location: [facility] Discharge Plan Triage Chief Complaint: Lower Extremity Injury ED Provider: Claude Cortes Dx/Rx/DC Orders Clinical Impression: Foot pain, left Prescriptions: No Action NK Primary Care Provider: Elizabeth Fried Referrals: Care Physician,No Primary [Non-Staff] - Print Language: Trinidadian Disposition Disposition: Elopement Discharge Date/Time: 03/15/25 05:53
--- NOTE | 2025-03-15 05:40 | ED.RN ---
This RN was walking in the hallway, past the patient who was walking in the hallway from the bathroom. The patient stated I am in that room (pointing to room 1) and I am leaving. This RN asked why and educated the patient on the benefits of staying to receive treatment. The patient stated I am leaving. The patient walked out of the squad doors. notified.
--- NOTE | 2025-03-15 06:12 | PCA ---
PT CALLED IN ABOUT PROVIDER SEEING XRAY RESULTS. THIS [employer] PRINCIPAL TOLD HIM YES L;KRISTA HE SIGNED CONSENT.
== END 2025-03-15 05:53 | disposition left against medical advice (07) ==
LOC: ED 05:21
PROVIDERS: Emergency Provider Emergency Medicine; PCP Student in an Organized Health Care Education/Training Program; Visit Provider Emergency Medicine
DX: M79.672 Pain in left foot (principal); F31.9 Bipolar disorder, unspecified; F42.9 Obsessive-compulsive disorder, unspecified; F17.210 Nicotine dependence, cigarettes, uncomplicated
CPT/HCPCS: 73630; 99282

== ENCOUNTER 2025-03-16 15:34 | Emergency (ER) | payer MEDICARE, MEDICAID, SELFPAY ==
[2025-03-16 15:35] VITALS: BP 145/82; PULSE 90; RESP 18; TEMP 36.8; O2SAT 96; BMI 31.6
--- NOTE | 2025-03-16 15:47 | EX.ED.DYSGE1 ---
HPI History of Present Illness Chief Complaint: Cellulitis Informant: patient Onset/Context/Timing Onset: Days (5) Context: Gradual Onset Timing: Continuous Quality: Radiating Location: Left foot over the fifth toe and proximal metatarsals. Worsened by: Movement Relieved by: Antibiotics Narrative Narrative: Patient presents with redness and swelling to his left foot that has been getting worse over the past 5 days. Patient states he initially went to [facility] and was diagnosed with athlete's foot. Patient states that the cream was not helping. Patient states that he was seen here in the emergency department 2 days ago. Patient states he kept getting sick and had to leave the emergency department. Patient followed up with his primary care physician yesterday and was started on Keflex and Bactrim. Patient states the swelling is gotten worse. Patient admits to some tingling but denies any weakness. Patient describes his pain as radiating. Patient states it has been constant. Patient states the antibiotics are starting to help with the pain. [facility] Medical History Laceration Obsessive compulsive disorder Depression Bipolar disorder Home Medications ?Medication ?Instructions ?Recorded ?Last Taken ?Type NK 11/28/24 Unknown History Allergy/AdvReac Type Severity Reaction Status Date / Time iodine Allergy Rash Verified 03/16/25 15:38 shellfish derived Allergy Anaphylaxis Verified 03/16/25 15:38 Family History no significant family his Surgical History no surgical history no surgical history Social History Smoking Status: Current every day smoker tobacco type: cigarettes ROS ROS ED Constitutional Constitutional ED: Denies chills or fever(s) Eyes Eyes: Denies blurry vision or change in vision ENT ENT ED: Denies rhinorrhea or sore throat Cardiovascular Cardiovascular: Reports chest pain; Denies palpitations Respiratory/Chest Respiratory/Chest: Reports cough and dyspnea Gastrointestinal Gastrointestinal: Reports nausea and vomiting Genitourinary Genitourinary ED: Denies dysuria or hematuria Musculoskeletal Musculoskeletal: Denies back pain or neck pain Integumentary Reports rash; Denies Abrasions Neurologic Neurologic: Reports headache(s); Denies weakness Allergic/Immunologic Allergic/Immunologic ED: Denies mouth swelling or urticaria EXAM Physical Exam Const Vital Signs: 03/16/25 15:35 Temperature 98.2 F Temperature Source Oral Pulse Rate 90 Respiratory Rate 18 Blood Pressure 145/82 H Blood Pressure Mean 103 Pulse Ox 96 Oxygen Delivery Method Room Air Positive well nourished and well developed General Appearance ED: well developed and NAD HEENT Reports moist mucous membranes Neck supple and no JVD Extremity Extremity Narrative: There is erythema and warmth over the left fifth toe as well as the 3rd, 4th, and 5th metatarsal areas distally. There is an area of small abscess formation in the webspace between the 4th and 5th toes. There is some mild fluctuance. There is no active discharge or drainage. Sensation was intact to light touch in all digits. Capillary refill was less than 2 seconds in all digits. Pedal pulses are equal bilaterally. Neuro oriented x3, CN's II-XII intact bilaterally and no sensory deficits noted Sensorium / Orientation: alert Motor Exam: strength 5/5 throughout Psych mental status grossly normal MDM MDM MDM Narrative Medical decision making narrative: Differential diagnosis includes cellulitis, abscess, and foot infection. Patient had recent x-rays which were negative for any evidence of osteomyelitis. Therefore I do not feel that x-rays need to be repeated at this time. CBC will be obtained to assess for leukocytosis and anemia. Basic metabolic profile will be obtained to assess for electrolyte abnormality and renal function. Lab Data Attestation: I reviewed the patient's lab results. Lab results narrative: CBC was reviewed and was within normal limits. Basic metabolic profile was reviewed and was within normal limits. Labs: Laboratory Results - last 24 hr 03/16/25 16:11 WBC 8.5 RBC 4.76 Hgb 15.4 Hct 41.9 MCV 88.0 MCH 32.4 H MCHC 36.8 H RDW Std Deviation 38.7 RDW Coeff of Nichelle 12.1 Plt Count 211 MPV 9.5 Immature Gran % (Auto) 0.400 Neut % (Auto) 61.7 Lymph % (Auto) 26.5 [place] % (Auto) 8.5 Eos % (Auto) 2.4 Baso % (Auto) 0.5 Absolute Neuts (auto) 5.2 Absolute Lymphs (auto) 2.24 Nucleated RBC % 0 Sodium 137 Potassium 3.8 Chloride 105 Carbon Dioxide 21.4 Anion Gap 10 BUN 16 Creatinine 0.83 Estim Creat Clear Calc 140.25 Est GFR (MDRD) Non-Af 116 BUN/Creatinine Ratio 19.8 Glucose 100 H Calcium 8.5 Treatment and Re-Evaluation :: Smoking cessation was discussed. Patient was given a dose of Unasyn here. The area was cleaned with chlorhexidine prep. The area was anesthetized with 1% plain lidocaine locally. A small linear incision was made using an 11 blade scalpel. A moderate amount of purulent drainage was expressed. The wound was left open. Bacitracin dressing was applied. Patient tolerated the procedure well. Patient was instructed to use warm compresses. Patient was instructed to continue with the Keflex and Bactrim as prescribed. Patient was instructed to follow-up with his primary care physician in 5 to 7 days. Patient understood and was agreeable with the plan. All questions were answered. Procedures Other Procedures Procedure(s): The area was cleaned with chlorhexidine prep. The area was anesthetized with 1% plain lidocaine locally. A small linear incision was made using an 11 blade scalpel. A moderate amount of purulent drainage was expressed. The wound was left open. Bacitracin dressing was applied. Patient tolerated the procedure well. Discharge Plan Triage Chief Complaint: Cellulitis ED Provider: Ari Walls Dx/Rx/DC Orders Clinical Impression: Abscess of left foot, Tobacco user Instructions: ED Abscess Incision And Drainage Prescriptions: No Action NK Primary Care Provider: Elizabeth Fried Referrals: Elizabeth Fried, DO [Primary Care Provider] - 5-7 Days Activity Restrictions/Additional Instructions: Continue your Bactrim and Keflex as prescribed until gone. Print Language: Citizen Of [place] Disposition Disposition: Home, Self Care
[2025-03-16 16:22] LABS: Absolute Lymphocyte Count 2.24 X10^3/uL (0.83-4.51); Absolute Neutrophil Count 5.2 X10^3/uL (2.0-7.7); Basophil# 0.04 X10^3/uL; Basophil% 0.5 % (0-1); Eosinophils% 2.4 % (0-5); Hematocrit 41.9 % (40-54); Hemoglobin 15.4 g/dL (13.0-16.5); Lymphocyte # 2.24 X10^3/ul (0.83-4.51); Lymphocyte % 26.5 % (19-41); Mean Corp Hgb Conc 36.8 g/dL (32-36); Mean Corpuscular Hgb 32.4 pg (27.0-32.0); Mean Platelet Vol. 9.5 fl (6.2-12.0); Monocyte# 0.72 X10^3/uL; Monocyte% 8.5 % (0-10); NRBC Flagged by Analyzer 0 % (0-5); Neutrophil # 5.23 X10^3/uL (2.7-7.7); Neutrophil % 61.7 % (47-70); Platelet Count 211 K/mm3 (150-450); RBC Distribution Width CV 12.1 % (11.6-14.6); RBC Distribution Width SD 38.7 fl (35.1-43.9); Red Blood Count 4.76 M/mm3 (4.6-6.2); White Blood Count 8.5 K/mm3 (4.4-11.0)
[2025-03-16] MEDS: Ampicillin/Sulbactam 3 GM in 0.9% Normal Saline (100mL MB+) 100 ML IV (16:28)
[2025-03-16] MEDS: Lidocaine 1% (20 ml mdv) 20 ML Vial INFILT (16:30)
[2025-03-16 16:41] LABS: Anion Gap 10 (5-15); BUN 16 mg/dL (4-19); BUN/Creat Ratio 19.8 RATIO (10-20); Calcium,Total 8.5 mg/dL (7.6-11.0); Carbon Dioxide 21.4 mmol/L (21.0-32.0); Chloride 105 mmol/L (98-108); Creatinine, Serum 0.83 mg/dL (0.70-1.20); EST Glomerular Filtration Rate 116 (>60); Estimated Creatinine Clearance 140.25 ml/min (50-250); Glucose 100 mg/dL (70-99); Potassium 3.8 mmol/L (3.3-5.1); Sodium Level 137 mmol/L (133-145)
[2025-03-16 17:03] VITALS: BP 146/86; PULSE 74; RESP 14; TEMP 36.8; O2SAT 97
== END 2025-03-16 17:28 | disposition home or self-care (01) ==
PROVIDERS: Emergency Provider Emergency Medicine; PCP Student in an Organized Health Care Education/Training Program; Referring Provider Emergency Medicine; Visit Provider Emergency Medicine
DX: L02.612 Cutaneous abscess of left foot (principal); F31.9 Bipolar disorder, unspecified; F17.210 Nicotine dependence, cigarettes, uncomplicated
CPT/HCPCS: 80048; 85025; 87070; 87205; 96365; 99283; A4216; J0295

== ENCOUNTER 2025-03-19 04:22 | Emergency (ER) | payer MEDICARE, MEDICAID, SELFPAY ==
[2025-03-19 04:22] VITALS: BP 156/88; PULSE 87; RESP 16; TEMP 36.8; O2SAT 96; BMI 31.6
[2025-03-19 04:30] VITALS: BP 156/88; PULSE 87; RESP 19; TEMP 36.8; O2SAT 97
--- NOTE | 2025-03-19 04:47 | EX.ED.DYSGE1 ---
HPI History of Present Illness Chief Complaint: Chest Pain Informant: patient Narrative Narrative: Patient is a 39-year-old male with past medical history bipolar depression and OCD. He was recently seen in the ER on March 16 secondary to left foot redness and pain and was diagnosed with cellulitis and abscess and had in the area incised and drained. He had lab work and x-ray done at that time which revealed no signs of systemic infection or osteomyelitis or retained foreign body. The next day 03-17 he was seen at [facility]. I was able to review that chart and according to the ER documentation he was seen secondary to concern about his foot as well as chest discomfort and scrotal pain. He had an EKG which was normal sinus rhythm and chest x-ray obtained which was normal and he was discharged home. The patient then returns on for repeat evaluation. [facility] Medical History Laceration Obsessive compulsive disorder Depression Bipolar disorder Home Medications ?Medication ?Instructions ?Recorded ?Last Taken ?Type cephalexin 500 mg capsule 500 mg PO 4X/DAY 03/19/25 Unknown History dicyclomine 10 mg capsule 10 mg PO 4X/DAY PRN PRN abdominal 03/19/25 Unknown History pain doxycycline hyclate 100 mg tablet 100 mg PO BID 03/19/25 Unknown History mupirocin 2 % topical ointment 1 applic topical TID 03/19/25 Unknown History sulfamethoxazole 800 1 tab PO BID 03/19/25 Unknown History mg-trimethoprim 160 mg tablet Allergy/AdvReac Type Severity Reaction Status Date / Time iodine Allergy Rash Verified 03/19/25 04:23 shellfish derived Allergy Anaphylaxis Verified 03/19/25 04:23 Family History no significant family his Social History Smoking Status: Current every day smoker tobacco type: cigarettes EXAM Physical Exam Const Vital Signs: 03/19/25 04:22 03/19/25 04:30 Temperature 98.2 F 98.2 F Temperature Source Oral Oral Pulse Rate 87 87 Respiratory Rate 16 19 H Blood Pressure 156/88 H 156/88 H Blood Pressure Mean 110 110 Pulse Ox 96 97 MDM MDM MDM Narrative Medical decision making narrative: Patient arrived to the ER hypertensive but otherwise with stable vitals. When I walked into the room I asked the patient why he was presenting to the ER once again as he has been seen on the and and had labs and images. I did this because I was curious about his reasoning for returning to the hospital; particularly wondering if he was informed to come back in secondary to change in symptoms or if there were new symptoms such as worsening pain or swelling or redness. However I guess my tone was inappropriate in this line of questioning and the patient became very irate that I would ask why he was returning to the hospital after 2 previous workups. I informed the patient that I was not trying to be rude but was generally curious about what was causing him to bounce back to the ER so frequently. I did offer my apologies but patient states he is not interested in hearing that and that the apology is not excepted. He states that he does not want me to evaluate him at any point now in the ER visit and just wishes to have his IV pulled and to leave. I did inform the patient that if he is having any new or different symptoms he should be reevaluated but he does not want to have this done at this time as he feels I was rude and arrogant and berating him. Therefore the patient will leave AGAINST MEDICAL ADVICE. History & Record Review Discussion w/independent historian: Patient Discharge Plan Triage Chief Complaint: Chest Pain ED Provider: Matthias Tucker Dx/Rx/DC Orders Clinical Impression: Cellulitis and abscess of toe of left foot, History of OCD (obsessive compulsive disorder), Bipolar disorder, Tobacco user Prescriptions: No Action cephalexin 500 mg capsule 500 mg PO 4X/DAY mupirocin 2 % ointment 1 applic topical TID doxycycline hyclate 100 mg tablet 100 mg PO BID dicyclomine 10 mg capsule 10 mg PO 4X/DAY PRN PRN (Reason: abdominal pain) sulfamethoxazole-trimethoprim 800-160 mg tablet 1 tab PO BID Primary Care Provider: Elizabeth Fried Referrals: Elizabeth Fried, [Primary Care Provider] - Print Language: Panamanian Disposition Disposition: Against Medical Advice Discharge Date/Time: 03/19/25 04:59
--- NOTE | 2025-03-19 04:50 | ED.RN ---
While triaging and assessing patient, patient is continuously cussing at this nurse. Pt states this is my 5th fucking visit at this [facility] place and you people do nothing to help me. While trying to complete assessment, pt becomes more and more agitated. When asked about health history, pt yells a this nurse I told those [facility] assholes, that [facility] director dude the last time I was here I am not bipolar, I do not have OCD and I am not depressed. You need to take that off my [facility] chart right now. Informed patient that I was not able to remove it but I would add a note. EMILY Vizcaino entered room and this nurse had completed charting. This nurse stated to patient this is a new visit, a different doctor and different staff. We are just trying to complete our assessment to best take care of you. I understand that you are upset and frustrated, but you need to not be rude to us. We are being respectful to you and you need to do the same. Pt verbalized understanding.
--- NOTE | 2025-03-19 05:02 | ED.RN ---
This RN went into the room to complete my assessment and establish an IV and obtain blood work. This RN obtained bedside report from Kiarra who triaged the patient. The patient was visibly very irritated, Kiarra explained to the patient that she was sorry that the patient had a bad experience with his last visit, but explained that this was a new visit and we were going to listen and be respectful to him and we are asking that he is respectful to us in return. The patient was calm with me while establishing an IV and blood work but the patient did express to me how angry he was with his past visit and how nothing is getting better after [facility], in the patient's words, didn't fix do shit to help me. This RN was alerted by the MD that the patient wanted to leave. This RN went into the room and the patient changed out of his clothes, took off our radiographer cardiac catheterization, and was pacing the room. This RN attempted to calm the patient down and reason with the patient, but the patient stated I am getting the fuck out of here, all you people are doing is fucking berating me, I was supposed to be here because my foot isn't getting any fucking better. The nurse that was in here was berating me and asking me all these fucking questions about why I was here and not taking me seriously. And then the fucking doctor came in here and asked me the same damn questions, wondering why the hell I was back when your fucking doctors are the ones that told me to come here if it wasn't getting better. I am going to report this fucking doctor to the medical board. This RN apologized to the patient, educated him on the dangers of leaving without addressing the compliant. This RN educated the patient on AMA paperwork and took out the patient's IV during this conversation. The patient stated well I am not signing anything without writing a note because everyone has to know that this is not my fault. The patient proceeded to write after being berated by nurse and doctor. I am leaving. The patient left without a copy of the form, the AMA form was copied and given to the patient's mother who had come to greens picker the patient.
== END 2025-03-19 04:59 | disposition left against medical advice (07) ==
LOC: ED 04:50
PROVIDERS: Emergency Provider Emergency Medicine; PCP Student in an Organized Health Care Education/Training Program; Visit Provider Emergency Medicine
DX: L03.116 Cellulitis of left lower limb (principal); F31.9 Bipolar disorder, unspecified; L02.612 Cutaneous abscess of left foot; F42.9 Obsessive-compulsive disorder, unspecified; F17.210 Nicotine dependence, cigarettes, uncomplicated
CPT/HCPCS: 99282; A4216

== ENCOUNTER 2025-10-13 17:23 | Emergency (ER) | payer MEDICARE, MEDICAID, SELFPAY ==
[2025-10-13 17:25] VITALS: BP 178/97; PULSE 100; RESP 18; TEMP 36.4; O2SAT 99; BMI 33.7
[2025-10-13 17:36] VITALS: O2SAT 95
--- NOTE | 2025-10-13 17:36 | EKG12_ITS ---
Test Reason : CP Blood Pressure : */* mmHG Vent. Rate : 89 BPM Atrial Rate : 89 BPM P-R Int : 176 ms QRS Dur : 92 ms QT Int : 364 ms P-R-T Axes : 61 65 42 degrees QTcB Int : 442 ms Sinus rhythm with Premature supraventricular complexes Otherwise normal ECG Confirmed by LUÍS ALANIS, JANICE ([id number]), associate entertainment editor ERICA RODRIGUEZ ([id number]) on 10/17/2025 8:35:47 AM Referred By: Confirmed By: JANICE STALEY MD
[2025-10-13 17:43] LABS: Hematocrit 49.2 % (40-54); Hemoglobin 17.7 g/dL (13.0-16.5); Immature Granulocytes Count 0.050 X10^3/uL (0.0-0.0); Mean Corp Hgb Conc 36.0 g/dL (32-36); Mean Corpuscular Volume 89.9 fL (80-94); Mean Platelet Vol. 10.0 fl (6.2-12.0); NRBC Flagged by Analyzer 0 % (0-5); Platelet Count 240 K/mm3 (150-450); RBC Distribution Width CV 12.1 % (11.6-14.6); RBC Distribution Width SD 39.7 fl (35.1-43.9); Red Blood Count 5.47 M/mm3 (4.6-6.2); White Blood Count 14.7 K/mm3 (4.4-11.0)
--- NOTE | 2025-10-13 17:55 | EDS_ITS ---
HPI History of Present Illness Chief Complaint: Chest Pain Narrative Narrative: Patient is a 40-year-old male with a past medical history of OCD, depression, bipolar disorder who presents to the emergency department chief complaint of chest pressure and elevated blood pressure. He states this been going on now for about 3 weeks he states that he saw his primary care physician outpatient setting and noted that his blood pressure been running hide he is requesting blood pressure medication however he was not given this they state that they wanted to see if his blood pressure would improve on its own. He states that he saw cardiology yesterday and they scheduled a ultrasound of his heart however this is not until October. He states that he was at [facility] and notes that he saw vascular and they feel that this is a neurological issue therefore he is referred to neurology however he cannot get in until after the first of the year to see them. He states that he checked his blood pressure earlier today it was 181 systolic with a elevated heart rate. He states that when he checked in here as well as blood pressure was elevated. He states that he does not know of anything that makes his chest pressure worse. He states that he also has a dry cough. He states that he is currently unemployed and has not had any recent travel history or no history of blood clots. Patient denies any history of IV drug use denies alcohol use. [facility] Medical History Laceration Obsessive compulsive disorder Depression Bipolar disorder Home Medications Medication Instructions Recorded Last Taken Type Bifidobacterium infantis 10.5 mg 10.5 mg PO DAILY 10/01 02/22 Unknown History (10 million cell) chewable tablet (Align (B.infantis)) amlodipine 5 mg tablet 5 mg PO DAILY #30 tabs 10/13 Unknown Rx nystatin 100,000 unit/mL oral 5 ml PO 4X/DAY 10/13/25 10/12/25 History suspension peppermint oil 90 mg 90 mg PO DAILY PRN abdominal 10/13/25 Unknown History capsule,delayed,extended release discomfort (IBgard) Allergy/AdvReac Type Severity Reaction Status Date / Time iodine Allergy Rash Verified 10/13/25 17:24 shellfish derived Allergy Anaphylaxis Verified 10/13/25 17:24 Social History Smoking Status: Current every day smoker tobacco type: cigarettes ROS ROS ED ROS Narrative Constitutional: Denies any fevers, chills, headaches Eyes: Denies double vision Cardiovascular: Complains of chest pressure as noted above denies palpitations Respiratory: Complains of dry cough denies shortness of breath Abdomen: Denies abdominal pain nausea vomit diarrhea : Denies any urinary symptoms Neurological: Denies any numbness, weakness, tingling Musculoskeletal: Denies back pain Skin: Denies any rashes or lesions EXAM Physical Exam Narrative Exam Narrative: General: Patient is lying in bed rest comfortably did not appear to be in acute distress Head: Atraumatic, normocephalic Eyes: PERRL bilaterally, EOMI bilateral, no conjunctival injection noted Neck: Soft, supple, trachea midline Cardiovascular: Regular rate and rhythm Respiratory: Clear to auscultation bilaterally Abdomen: Soft, nondistended, no tenderness to palpation Extremities: Radial pulses +2/4 in the bilateral extremities, +5/5 strength noted in the bilateral lower extremities Neurological: Patient following commands knew that he was at [facility] year is 2024 Skin: Warm, dry, intact no rashes or lesions noted Const Vital Signs: 10/13/25 17:25 10/13/25 17:36 10/13/25 17:56 Temperature 97.5 F L Temperature Source Temporal Pulse Rate 100 90 Respiratory Rate 18 Blood Pressure 178/97 H 147/99 H Blood Pressure Mean 124 115 Pulse Ox 99 95 97 Oxygen Delivery Method Room Air Room Air Room Air 10/13/25 19:00 10/13/25 20:00 Temperature Temperature Source Pulse Rate 85 82 Respiratory Rate 18 18 Blood Pressure 140/84 H 142/103 H Blood Pressure Mean 102 116 Pulse Ox 97 97 Oxygen Delivery Method Room Air MDM MDM MDM Narrative Medical decision making narrative: Patient is a 40-year-old male who presents to the emergency department chief complaint of hypertension and chest pressure. On the differential diagnosis includes but limited to hypertensive emergency, essential hypertension, PE. Once workup is obtained reviewed he will be reevaluated. Patient CBC reviewed and showed leukocytosis of 14,000, hemoglobin 17.7, plate count was noted be 240. D-dimer is less than 0.27. Sodium normal at 141, pot assium 3.6, creatinine 0.79. Patient's troponin was 10 with a delta troponin of 12. Patient EKG was reviewed showed sinus rhythm with PVCs noted with a rate of 89 bpm [place] interval 176. Patient TSH normal at 1.19 and free T4 and T3 normal at 1.40 and 3.7 respectively. While here the patient was complaining of recurrent oral thrush therefore added on HIV testing which was nonreactive. No evidence of thrush here in the emergency department. Patient chest x-ray reviewed by myself and by radiology showed no acute cardiopulmonary processes. Discussed the results with the patient and he would like to go home at this point time. Patient has had multiple readings of hypertension in the emergency department he states that he continuously is checking his blood pressure at home is running in the 180s therefore he will be started on amlodipine he will be given a dose here in the emergency department. He is advised follow-up his doctor's outpatient setting and return with worsening symptoms or any concerns. He is agreeable this plan as well as family at bedside all question concerns answered he is discharged home in stable condition Lab Data Labs: Laboratory Results - last 24 hr 10/13/25 10/13/25 17:35 19:21 WBC 14.7 H RBC 5.47 Hgb 17.7 H Hct 49.2 MCV 89.9 MCH 32.4 H MCHC 36.0 RDW Std Deviation 39.7 RDW Coeff of Nichelle 12.1 Plt Count 240 MPV 10.0 Immature Gran % (Auto) 0.300 Neut % (Auto) 75.3 H Lymph % (Auto) 16.6 L Isabella % (Auto) 6.7 Eos % (Auto) 0.7 Baso % (Auto) 0.4 Absolute Neuts (auto) 11.1 H Absolute Lymphs (auto) 2.44 Nucleated RBC % 0 D-Dimer Quant (PE/DVT) < 0.27 L Sodium 141 Potassium 3.6 Chloride 105 Carbon Dioxide 25.6 Anion Gap 10 BUN 9 Creatinine 0.79 Estim Creat Clear Calc 150.58 Est GFR (MDRD) Non-Af 117 BUN/Creatinine Ratio 11.8 Glucose 104 H Calcium 9.6 Troponin T High Sens 10 Troponin T Hi Sens 2 Hr 12 TSH 1.190 Free T4 1.40 Free T3 pg/dL 3.7 HIV 1&2 Antibody Nonreactive Radiography Diagnostic Testing: Clinical Impression(s) from Imaging Studies Chest X-Ray 10/13/25 17:55 IMPRESSION: NO ACUTE FINDINGS. Reading Location: [facility] Discharge Plan Triage Chief Complaint: Chest Pain Other Complaint: Hypertension ED Provider: Claude Cortes Dx/Rx/DC Orders Clinical Impression: Hypertension, Chest pain Prescriptions: New amlodipine 5 mg tablet 5 mg PO DAILY Qty: 30 0RF No Action nystatin 100,000 unit/mL suspension 5 ml PO 4X/DAY Align (B.infantis) 10.5 mg (10 million cell) tablet,chewable 10.5 mg PO DAILY IBgard 90 mg capsule,delayed,extend.release 90 mg PO DAILY PRN (Reason: abdominal discomfort) Primary Care Provider: Carolann Kang NON DESTRUCTIVE TESTING INSPECTOR Referrals: Elizabeth Fried DO [Non-Staff, Family Practice] Activity Restrictions/Additional Instructions: Take blood pressure medication as prescribed keep a close eye on your blood pressure. Follow-up with your doctor in the outpatient setting. Your blood work did not show any acute findings here today your chest x-ray is normal. Return with worsening symptoms or any concerns Print Language: [place] Island[place] Disposition Disposition: Home, Self Care
--- NOTE | 2025-10-13 17:55 | RAD_ITS ---
PROCEDURE: CHEST PA AND LATERAL 10/13/2025 REASON FOR EXAM: CHEST PAIN TECHNIQUE: Procedure Code: RADCXR Modality: DX Procedure: CHEST PA AND LATERAL COMPARISON: 04/13/2023 FINDINGS: LUNGS AND PLEURA: The lungs are clear. No pleural effusion or pneumothorax. HEART AND MEDIASTINUM: The heart size and mediastinal contours are normal. BONES: No acute osseous abnormality. RAD/Chest PA and Lateral IMPRESSION: NO ACUTE FINDINGS. Reading Location: [id number]
[2025-10-13 17:56] VITALS: BP 147/99; PULSE 90; O2SAT 97
[2025-10-13 18:16] LABS: D-Dimer Quantitative (DVT/PE) < 0.27 FEU/ug/m (0.27-0.49)
[2025-10-13 18:55] LABS: Anion Gap 10 (5-15); BUN 9 mg/dL (4-19); BUN/Creat Ratio 11.8 RATIO (10-20); Calcium,Total 9.6 mg/dL (7.6-11.0); Carbon Dioxide 25.6 mmol/L (21.0-32.0); Chloride 105 mmol/L (98-108); Estimated Creatinine Clearance 150.58 ml/min (50-250); Glucose 104 mg/dL (70-99); Potassium 3.6 mmol/L (3.3-5.1); Troponin T High Sensitivity 10 ng/L (<=22)
[2025-10-13 19:00] VITALS: BP 140/84; PULSE 85; RESP 18; O2SAT 97
[2025-10-13 19:15] LABS: Free T3 3.7 pg/mL (2.18-3.98)
[2025-10-13 19:53] LABS: Troponin T High Sens 2 HR 12 ng/L (<=22)
[2025-10-13 20:00] VITALS: BP 142/103; PULSE 82; RESP 18; O2SAT 97
[2025-10-13 20:05] LABS: HIV Nonreactive (Nonreactive)
[2025-10-13 20:14] VITALS: BP 142/103; PULSE 80; RESP 18; TEMP 36.6; O2SAT 97
== END 2025-10-13 20:19 | disposition home or self-care (01) ==
PROVIDERS: Emergency Provider Emergency Medicine; Visit Provider Emergency Medicine
DX: R07.89 Other chest pain (principal); F31.9 Bipolar disorder, unspecified; I49.3 Ventricular premature depolarization; F42.9 Obsessive-compulsive disorder, unspecified; I10 Essential (primary) hypertension; F17.210 Nicotine dependence, cigarettes, uncomplicated; Z86.19 Personal history of other infectious and parasitic diseases
CPT/HCPCS: 71046; 80048; 84439; 84443; 84481; 84484; 85025; 85379; 86703; 93005; 99285; A4216

== ENCOUNTER 2025-10-16 02:45 | Emergency (ER) | payer MEDICARE, MEDICAID, SELFPAY ==
[2025-10-16 02:46] VITALS: BP 156/90; PULSE 57; RESP 16; TEMP 36.7; O2SAT 99; BMI 34.2
--- NOTE | 2025-10-16 03:05 | EKG12_ITS ---
Test Reason : CP Blood Pressure : */* mmHG Vent. Rate : 54 BPM Atrial Rate : 54 BPM P-R Int : 164 ms QRS Dur : 98 ms QT Int : 404 ms P-R-T Axes : 46 62 39 degrees QTcB Int : 383 ms Sinus bradycardia Otherwise normal ECG Confirmed by DIANE ALANIS, SHELLY ([id number]), society editor ERICA RODRIGUEZ ([id number]) on 10/17/2025 9:14:28 AM Referred By: BB Confirmed By: SHELLY CONTRERAS MD
--- NOTE | 2025-10-16 03:19 | ED.VIS.CHEST ---
HPI History of Present Illness Chief Complaint: Chest Pain Informant: patient Narrative Narrative: Patient is a 40-year-old male presenting at 0230 with recurrent chest pain, palpitations, and dyspnea. - Reports episodes of sharp, shooting pain in the left side of the chest that began 3 weeks ago. - Pain is associated with a sensation of tightness and pressure across the chest and episodes of palpitations described as "all out of rhythm" and "excessively fast" heartbeats, particularly when lying on the left side tonight in bed. Tonight less than 1 hr ago was last episode, which he states felt the same as the other episodes. Denies any new symptoms. No episodes of syncope. - Intermittent dyspnea noted, sometimes when walking up stairs; reports "wheezing and stuff" that comes and goes. - Symptoms have persisted despite multiple ER visits, including [facility] on the , [place] [facility] on the of last month, and here 3-4 days ago; "we need to figure this out." - Currently scheduled for an outpatient echocardiogram after seeing Cardiology as an outpatient. [facility] Medical History Laceration Obsessive compulsive disorder Depression Bipolar disorder Home Medications Medication Instructions Recorded Last Taken Type Bifidobacterium infantis 10.5 mg 10.5 mg PO DAILY 10/13/25 Unknown History (10 million cell) chewable tablet (Align (B.infantis)) amlodipine 5 mg tablet 5 mg PO DAILY #30 tabs 10/13/25 Unknown Rx nystatin 100,000 unit/mL oral 5 ml PO 4X/DAY 10/13/25 10/12/25 History suspension peppermint oil 90 mg 90 mg PO DAILY PRN abdominal 10/13/25 Unknown History capsule,delayed,extended release discomfort (IBgard) Allergy/AdvReac Type Severity Reaction Status Date / Time iodine Allergy Rash Verified 10/13/25 17:24 shellfish derived Allergy Anaphylaxis Verified 10/13/25 17:24 Social History Smoking Status: Current every day smoker tobacco type: cigarettes ROS ROS ED Constitutional Constitutional ED: Denies chills or fever(s) Eyes Eyes: Denies change in vision or diplopia ENT ENT ED: Denies rhinorrhea or sore throat Cardiovascular Cardiovascular: Reports as per HPI, chest pain, palpitations and racing heartbeat; Denies leg edema, lightheadedness, radiating jaw, neck or arm pain or syncope Respiratory/Chest Respiratory/Chest: Reports dyspnea; Denies cough Gastrointestinal Gastrointestinal: Denies abdominal pain, diarrhea, nausea or vomiting Genitourinary Genitourinary ED: Denies dysuria or hematuria Musculoskeletal Musculoskeletal: Denies back pain or neck pain Integumentary Denies abscess or rash Neurologic Neurologic: Denies headache(s), paresthesias or weakness Psychiatric Psychiatric: Denies suicidal thoughts EXAM Physical Exam Const Vital Signs: 10/16/25 02:46 10/16/25 02:51 Temperature 98.1 F Temperature Source Oral Pulse Rate 57 L Respiratory Rate 16 Respiratory Effort Normal Blood Pressure 156/90 H Blood Pressure Mean 112 Pulse Ox 99 Oxygen Delivery Method Room Air Positive well nourished and well developed General Appearance ED: well developed and NAD HEENT Reports moist mucous membranes normocephalic and atraumatic Eyes PERRL and EOMs intact bilaterally Neck full ROM and supple Resp normal respiratory effort and clear to auscultation bilaterally Cardio regular rate, regular rhythm and no murmurs GI non-tender and non-distended Auscultation: normoactive bowel sounds Palpation: soft Back/Spine no CVA tenderness General Back: other FROM Extremity normal to inspection General Extremety ED: Negative for edema, pulses abnormal or tenderness General Extremity: Negative for edema or pulses abnormal Neuro oriented x3, CN's II-XII intact bilaterally and no sensory deficits noted Sensorium / Orientation: awake and alert Motor Exam: strength 5/5 throughout Psych Mood & Affect: anxious Skin no rashes or lesions noted and no wounds Heart Score History: Slightly/Non-Suspicious ECG: Normal Age: </= 45 years Risk Factors: 1 or 2 Risk Factors (smoker) Score: 1 MDM MDM MDM Narrative Medical decision making narrative: At this time, the patient is asymptomatic and mildly hypertensive in the 140s, but otherwise his vital signs are normal. His oxygen saturation is 99% on room air, his lungs are clear, his heart is regular, and no murmurs are noted. His EKG is normal. I reviewed his ED visit from three days ago, in which he underwent a thorough workup, including a chest x-ray, EKG, serial troponins, and D-dimer. All results were normal, as was the rest of his blood work. He is now here at 2:30 AM, expressing frustration that he has experienced multiple episodic symptoms, with several ER visits but no definitive answers. I explained that he was not admitted during his previous visits, likely because those workups were similar to what was done three days ago and all appeared normal. He had no disagreement with that assessment. I also discussed that if there is ectopy or a dysrhythmia that does not recur while he is here on the monitor, it can be challenging to diagnose. In the meantime, I offered to rule out serious conditions such as enzyme elevations from dangerous dysrhythmias (e.g., ventricular tachycardia, which he has never been diagnosed with), acute coronary syndrome, or acute pulmonary issues. A D-dimer was negative during his previous workup, and given his normal vitals and a PERC score of 0, I do not believe repeat evaluation for pulmonary embolism is indicated at this point. He then demanded a referral to pulmonology. Based on the information available, including the recent workup and the nature of his episodic symptoms—which do not appear to be pulmonary in origin, his normal vital signs, and clear lungs, I see no current indication for a pulmonology referral. He argued that intermittent wheezing must mean a lung-related issue, and I explained there are many potential causes for subjective wheezing. Objectively, he has no wheezing on examination. Therefore, until additional workup suggests otherwise, I advised him that a pulmonology referral is not indicated. After explaining all of this, I ordered appropriate emergent testing. Subsequently, nursing reported that the patient eloped. History & Record Review Additional record(s) reviewed:: Prior ED visit and Prior labs Rhythm Strip Rhythm Strip: Sinus Rhythm Rate: 63 Ectopy: None EKG Initial EKG: Attestation: I personally reviewed and interpreted this EKG as follows: Interpretation: Sinus Rhythm and No Acute Injury Pattern Comments: Nml axis & intervals; nml EKG Discharge Plan Triage Chief Complaint: Chest Pain ED Provider: Chriss Tracey Dx/Rx/DC Orders Clinical Impression: Left-sided chest pain, Palpitations, Acute dyspnea Prescriptions: No Action nystatin 100,000 unit/mL suspension 5 ml PO 4X/DAY Align (B.infantis) 10.5 mg (10 million cell) tablet,chewable 10.5 mg PO DAILY IBgard 90 mg capsule,delayed,extend.release 90 mg PO DAILY PRN (Reason: abdominal discomfort) amlodipine 5 mg tablet 5 mg PO DAILY Qty: 30 0RF Print Language: Macanese Disposition Disposition: Elopement
--- NOTE | 2025-10-16 03:39 | ED.RN ---
Pt called in to complain about Dr Tracey. Pt states he is upset that Dr Tracey was ordering EKG and chest x ray. He states that he needs referred to javascript software engineer, and was upset that Dr Tracey was "just ordering the same tests". Attempted to explain EKG and chest xray reasoning, pt vrbalized understanding but still voiced frustration. This nurse had difficulty relaying information to pt, pt continued to voice displeasure and stated he was going to call pt advocate on Friday and complain. He then ends the call.
--- NOTE | 2025-10-16 03:47 | ED.RN ---
Nursing staff notified by radiology staff that pt was not in his room, pt found by security outside at 3:07 waiting for a ride.
--- OUTSIDE RECORDS SUMMARY | 2025-10-16 03:54 | XMS RPT_ITS | CCD ---
Author Organization [facility] PACKAGING CLERK [facility] Care Team Providers Care 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 Name Role Phone MARION RICE Attending Unavailable PHYSICIAN, NONE Primary Care Unavailable Unavailable Primary Care Provider Unavailabl e Unavailable Primary Care Provider Unavailabl e Unavailable Primary Care Provider Unavailabl e Unavailable Primary Care Provider Unavailabl e Care Physician, No Primary Primary Care Provider Unavailable Dr. Harris Aviles DO Attending Provider Dr. Harris Aviles DO Emergency Provider [phone] Claude Cortes DO Emergency Provider [phone] Elizabeth Argueta DO Primary Care Provider [phone] Dr. Ari Walls DO Referring Provider [phone] Ari Walls DO Emergency Provider [phone] ELIZABETH ARGUETA DO Attending Unavailable ALEKSANDAR ARGUETA DOA Trae Primary Care Unavailable ELIZABETH ARGUETA DO Primary Care Unavailable EDIN ALANIS, DR NAEL Witt Attending Isiah ENRIQUEZ MD, DR AUTUMN Leger Attending Unavailabl e Dr. Matthias Tucker DO Emergency Provider [phone] Elizabeth Argueta Primary Care Unavailable Matthias Tucker Attending Unavailable Elizabeth Argueta Primary Care Unavailable Ari Walls Attending Unavailable Ari Walls Referring Unavailable Harris Aviles Attending Unavailable Care Physician, No Primary Primary Care Unava ilable Claude Cortes Attending Unavailable Elizabeth Argueta Primary Care Unavailable CE WOOD Attending Unavailable Boni ALANIS, Shelly Navarrete Primary Care Provider [phone] Scott Santamaria MD Unavailable [phone] Joycelyn Ariza MD Unavailable PROVIDER, UNKNOWN Admitting Unavailable PROVIDER, UNKNOWN Attending Unavailable Generic Provider , No Assigned Pcp Primary Car e Provider Unavailable Shelly Izquierdo MD Primary Care Provider Unavailable Primary Care Provider Unavailabl e Carmen Hughes MD Primary Care Provider [phone] JESSIE MCCLENDON Admitting Unavailable JESSIE MCCLENDON Attending Unavailable JESSIE MCCLENDON Consulting Unavailable SCOTT SANTAMARIA Attending Unavailable [facility] Primary Care Unavailable SIGNS, HARDIK Attending Unavailable NOLKER, SCOTT Referring [facility]available [facility] Primary Care Unavailable JACQUELYN MUSTAFA Attending Unavailable NOLKER, SCOTT Attending Unavailable NOLKER, SCOTT Referring Unavailable NOLKER, SCOTT Attending Unavailable NOLKER, SCOTT Referring Unavailable NOLKER, SCOTT Attending Unavailable NOLKER, SCOTT Referring Unavailable IZQUIERDO, [facility] Primary Care Unavailable NOLKER, SCOTT Attending Unavailable NOLKER, SCOTT Referring Unavailable IZQUIERDO, [facility] Primary Care Unavailable SIGNS, HARDIK Attending Unavailable SIGNS, HARDIK Referring Unavailable IZQUIERDO, [facility] Primary Care Unavailable NOLKER, SCOTT Attending Unavailable IZQUIERDO, [facility] Primary Care Unavailable NOLKER, SCOTT Attending Unavailable NOLKER, SCOTT Referring Unavailable IZQUIERDO, [facility] Primary Care Unavailable JOYCELYN ARIZA Attending Unavailable NOLKER, SCOTT Referring Unavailable IZQUIERDO, [facility] Primary Care Unavailable JOYCELYN NELSON Attending Unavailable JOHAN FAUST Attending Unavailable MARCOS GARCIA Referring Unavailable Generic Provider , No Assigned Pcp Primary Car e Provider Unavailable MITRA MENDOZA Attending Unavail able NO, PHYSICIAN Primary Care Unavailable Suman ALANIS [facility] Primary Care Provider Scott Cuellar Primary Care Provider [phone] KOBI SHORT Attending Unavailable CARMEN HUGHES Attending Unavailable PRINCE GEORGE Primary Care Unavailab JOY Herman Attending Unavailable SUMAN JOY Primary Care Unavailable CHLOÉ RUGGIERO Attending Unavailable GENERIC PROVIDER, NO ASSIGNED PCP Primary Care Unavailable CARMEN HUGHES Primary Care Unavailable GARTH AGUILAR Attending Unavailable JOY WILL Primary Care Unavailable GAYE FORD Attending Unavailable GAYE FORD Referring Unavailable CRYSSCOTT REICH Primary Care Unavailable ROBERTO CHE Referring Unavailable NOSCOTT REICH Primary Care Unavailable CITLALI FLETCHER Attending Unavailable ROBERTO CHE Referring Unavailable NOLSCOTT REICH Primary Care Unavailable ROBERTCarlos EnriqueROMY Referring Unavailable NOLSCOTT REICH [facility] Care Unavailable CHEROBERTO Attending Unavailable NOSCOTT REICH [facility] Care Unavailable CITLALI FLETCHER Attending Unavailable ROBERTO CHE Referring Unavailable NOSCOTT REICH Primary Care Unavailable NODAMIR, SCOTT Primary Care Unavailable SELF, SELF Referring Unavailable GAYE FORD Attending Unavailable Allergies Allergy Classification Reported Allergen(s) Allergy Type Date of Onset Reaction(s) Facility (20 sources) Iodine; Translations: [iodine] Drug Allergy 4 Rash [facility] Work Phone: (20 sources) Shellfish; Translations: [shellfish derived] Drug Allergy 9 Other: See Comments [facility] (1 source) Shellfish Food allergy Anaphylactic reaction [facility] (1 source) Iodine Drug Allergy 5 [facility] Repository (20 sources) Iodinated Contrast Media Propensity to adverse reactions 5 [facility] (20 sources) Sulfonamides (Antibiotic); Translations: [SULFA ANTIBIOTICS] Propensity to adverse reactions to drug 5 [facility] (7 sources) Shellfish; Translations: [SHELLFISH CONTAINING PRODUCTS] Drug Allergy 5 Anaphylaxis [facility] Work Phone: (13 sources) Shellfish-Derive d Products Propensity to adverse reactions [address] [facility] (2 sources) Shellfish Protein-Containi ng Drug Products Propensity to adverse reactions 7 [facility] (3 sources) Sulfonamides (Antibiotic); Translations: [SULFA (SULFONAMIDE ANTIBIOTICS)] Propensity to adverse reactions to drug (disorder) 5 [facility] Repository (1 source) CT: IODINATED CONTRAST- ORAL AND IV DYE; Translations: [CT: IODINATED CONTRAST- ORAL AND IV DYE] Propensity to adverse reactions to drug (disorder) 5 [facility] Repository (1 source) Iodine I 131 Tositumomab Propensity to adverse reactions to drug 7 Anaphylaxis [facility] Medications Current Medications Medication Drug Class(es) Dates Sig (Normalized) Sig (Original) 200 actuat albuterol 0.09 mg/actuat dry powder inhaler (11 sources) beta2-Adrenergic Agonist Start: 03-15-2025 Albuterol Sulfate 108 (90 Base) MCG/ACT Aerosol Powder, breath activated Take 90 mcg by mouth as needed. 03/15/2025 Active Start: 03-15-2025 take 2 puff(s) by in halation every four hours albuterol 90 mcg/actuation inhaler Inhale 2 puffs every 4 hours if needed. 03/15/2025 Active Start: 03-15-2025 End: 06-27-2025 take 2 puff(s) by inhalation every four hours albuterol 108 (90 Base) MCG/ACT inhaler 2 puffs every 4 hours. 03/15/2025 06/27/2025 Discontinued (Med list cleanup) aspirin 81 mg oral tablet (2 sources) Platelet Aggregation Inhibitor, Nonsteroidal Anti-inflammatory Drug Start: 07-25-2025 take 1 tablet by mouth once daily aspirin 81 mg tablet Take 81 mg by mouth once daily. 07/25/2025 Active Bifidobacterium longum (1 source) Bifidobacterium longum (ALIGN, B.LONGUM, ORAL) Take by mouth. Active cephalexin 500 mg oral capsule (1 source) Cephalosporin Antibacterial Start: 03-19-2025 take 1 capsule by mouth four times daily Cephalexin 500 mg capsule Active 500 mg PO 4 TIMES DAILY March 19, 2025 12:00am dicyclomine hydrochloride 20 mg oral tablet (6 sources) Anticholinergic Start: 07-28-2025 take 1 tablet by mouth four times daily as needed for pain dicyclomine (Bentyl) 20 mg tablet Indications: Irritable bowel syndrome with constipation , Bloating Take 1 tablet (20 mg) by mouth 4 times a day as needed (For abdominal pain, bloating, and cramping). Do not take immediately prior to driving as this medication may cause drowsiness. 120 tablet 3 07/29/2025 10:08 AM EDT 07/28/2025 Active Start: 03-12-2025 End: 07-27-2025 take 1 capsule by mouth four times daily as needed for pain Dicyclomine 10 mg capsule Active 10 mg PO 4 TIMES DAILY NEEDED as needed for abdominal pain March 19, 2025 12:00am ibuprofen 600 mg oral tablet (2 sources) Nonsteroidal Anti-inflammatory Drug Start: 09-21-2025 take 1 tablet by mouth every six hours as needed ibuprofen 600 mg tablet Take 1 tablet (600 mg) by mouth every 6 hours if needed. 09/21/2025 Active itraconazole 100 mg oral capsule (5 sources) Azole Antifungal Start: 07-25-2025 End: 08-01-2025 take 2 capsules by mouth once daily itraconazole (Sporanox) 100 MG capsule Take 2 capsules (200 mg) by mouth daily for 7 doses. 14 capsule 07/25/2025 08/01/2025 Active mupirocin 0.02 mg/mg topical ointment (1 source) RNA Synthetase Inhibitor Antibacterial Start: 03-19-2025 Mupirocin 2 % ointment Active 1 NMA TOPICAL THREE TIMES A DAY March 19, 2025 12:00am [place] (Nk) (2 sources) Start: 11-28-2024 [place] (Nk) Active November 28, 2024 1:00am Nystatin (11 sources) Polyene Antifungal Start: 07-18-2025 NYSTATIN PO Take by mouth daily. Rinse 07/18/2025 Active Start: 07-14-2025 End: 07-24-2025 take 1 mL by mouth four times daily nystatin (Mycostatin) [id number] UNIT/ML suspension Take 1 mL (100,000 Units) by mouth 4 times daily for 10 days. 120 mL 1 07/14/2025 07/24/2025 Active ondansetron 4 mg oral tablet (4 sources) Serotonin-3 Receptor Antagonist Start: 03-12-2025 End: 09-29-2025 take 1 tablet by mouth every six hours as needed Ondansetron 4 MG tablet Take 1 tablet by mouth Every 6 hours as needed. 03/12/2025 Active sulfamethoxazole 800 mg / trimethoprim 160 mg oral tablet (4 sources) Dihydrofolate Reductase Inhibitor Antibacterial, Sulfonamide Antimicrobial Start: 03-19-2025 Sulfamethoxazole -Trimethoprim 800-160 mg tablet Active 1 {tbl} PO TWICE A DAY March 19, 2025 12:00am Start: 01-12-2025 End: 01-19-2025 take 1 tablet by mouth twice daily sulfamethoxazole-trimethoprim (BACTRIM D S) 800-160 mg per tablet Take 1 tablet by mouth two times a day for 7 days. 14 tablet 01/12/2025 01/19/2025 Active triamcinolone acetonide 0.055 mg/actuat metered dose nasal spray (6 sources) Corticosteroid Start: 07-29-2024 take 2 spray(s) by inhalation once daily triamcinolone acetonide (NASACORT) 55 mcg nasal inhaler Indications: Environmental allergies Use 2 Sprays in the nose once daily. 16.9 mL 07/29/2024 Active Completed/Discontinued Medications Medication Drug Class(es) Dates Sig (Normalized) Sig (Original) amoxicillin 500 mg oral capsule (2 sources) Penicillin-class Antibacterial Start: 09-21-2025 End: 10-05-2025 take 1 capsule by mouth three times daily amoxicillin (Amoxil) 500 mg capsule Take 1 capsule (500 mg) by mouth 3 times a day. 09/21/2025 10/05/2025 Discontinued (Therapy completed) ARIPiprazole 5 mg oral tablet (6 sources) Atypical Antipsychotic End: 06-27-2025 take 1 tablet by mouth once daily ARIPiprazole (Abilify) 5 MG tablet Take 1 tablet by mouth daily. 06/27/2025 Discontinued (Patient refused) brompheniramine maleate 0.4 mg/ml / dextromethorphan hydrobromide 2 mg/ml / pseudoephedrine hydrochloride 6 mg/ml oral solution (4 sources) alpha-Adrenergic Agonist, Uncompetitive I-ypelau-J-aspartat e Receptor Antagonist, Sigma-1 Agonist Start: 11-13-2022 End: 07-29-2024 take 10 mL by mouth every six hours as needed Brompheniramine-P seudoeph-DM (BROMFED DM) 2-30-10 mg/5 mL syrup Take 10 mL by mouth four times daily as needed. 200 mL 11/13/2022 07/29/2024 Discontinued (Course of therapy completed) Comment on above: Take 10 mL by mouth four times daily as needed. cariprazine 1.5 mg oral capsule (16 sources) Atypical Antipsychotic Start: 04-18-2025 End: 07-11-2025 take 1 capsule by mouth once daily Vraylar 1.5 MG capsule take 1 capsule BY MOUTH daily on Friday, Friday and Friday04/18/2025 07/11/2025 Discontinued (Therapy completed) Start: 04-18-2025 End: 07-27-2025 take 1 capsule by mouth three times weekly Vraylar 1.5 mg capsule Take 1 capsule (1.5 mg) by mouth 3 times a week. Friday AND Friday04/18/2025 07/27/2025 Discontinued (Therapy completed) clindamycin 150 mg oral capsule (4 sources) Lincosamide Antibacterial Start: 08-09-2022 End: 11-28-2024 take 2 capsules by mouth four times daily Clindamycin Hcl 150 mg capsule Discontinued 300 mg PO 4 TIMES DAILY 80 August 09, 2022 12:00am November 28, 2024 11:31am Start: 08-09-2022 take 300 mg by mouth four times daily Clindamycin Hcl Active 300 MG PO 4 TIMES DAILY 80 August 09, 2022 12:00am diphenhydrAMINE (1 source) Histamine-1 Receptor Antagonist End: 09-29-2025 take 1 tablet by mouth once daily diphenhydramine HCl (ALLERGY ORAL) Take 1 tablet by mouth once daily. 09/29/2025 Discontinued (Entered in Error) diphenhydrAMINE / Lidocaine / Nystatin (3 sources) Antiarrhythmic, Polyene Antifungal, Histamine-1 Receptor Antagonist, Amide Local Anesthetic Start: 07-18-2025 End: 09-29-2025 DIPHENHYDRAMINE/LIDO LILA/NYSTATIN ORAL SUSPENSION (1:1:1) Take 1 mL by mouth if needed. 07/18/2025 09/29/2025 Discontinued (Entered in Error) Start: 07-18-2025 DIPHENHYDRAMIN E/LIDOCAINE/NYSTATIN ORAL SUSPENSION (1:1:1) Take 1 mL by mouth if needed. 07/18/2025 Active doxycycline hyclate 100 mg oral capsule (13 sources) Tetracycline-class Drug Start: 06-23-2025 End: 07-11-2025 doxycycline (Vibramycin) 100 MG capsule Indications: Cellulitis of all toes of left foot Take 1 capsule (100 mg) by mouth 2 times daily for 7 days. Take with at least 8 ounces (large glass) of water, do not lie down for 30 minutes after 14 capsule 06/23/2025 07/11/2025 Discontinued (Therapy completed) Start: 03-19-2025 take 1 tablet by ana th twice daily Doxycycline Hyclate 100 mg tablet Active 100 mg PO TWICE A DAY March 19, 2025 12:00am fexofenadine hydrochloride 180 mg oral tablet (15 sources) Histamine-1 Receptor Antagonist Start: 07-29-2024 End: 09-29-2025 take 1 tablet by mouth once daily fexofenadine (Vivi) 180 mg tablet Take 1 tablet (180 mg) by mouth once daily. 07/29/2024 09/29/2025 Discontinued (Entered in Error) fluconazole 150 mg oral tablet (4 sources) Azole Antifungal Start: 07-18-2025 End: 07-18-2025 take 150 mg by mouth once 150 mg, oral, Once, On Fri07/18/25 at 2350, For 1 dose, Coverage: Shayla albicans, Infection Site: Oropharyngeal Start: 07-18-2025 End: 07-25-2025 take 1 tablet by mouth once daily fluconazole (Diflucan) 200 mg tablet Indications: Tinea corporis Take 1 tablet (200 mg) by mouth once daily for 7 days. 7 tablet 07/18/2025 07/25/2025 fluticasone propionate 0.05 mg/actuat metered dose nasal spray (6 sources) Corticosteroid End: 06-27-2025 take 1 spray(s) nasal route once daily fluticasone (Flonase Allergy Relief) 50 MCG/ACT nasal spray Administer 1 spray into each nostril daily. 06/27/2025 Discontinued (Med list cleanup) gadoterate meglumine (Dotarem) 0.5 mmol/mL contrast injection 20 mL (1 source) Start: 07-18-2025 End: 07-18-2025 inject 20 mL intravenously once 20 mL, intravenous, Once in imaging, Starting on Fri07/18/25 at 2259, For 1 dose, Administer undiluted as rapid I.V. bolus injection gentian valencia 10 mg/ml topical solution (1 source) Start: 04-05-2025 End: 07-27-2025 gentian valencia 1 % topical solution Apply 1 Application topically 3 times a day as needed. 04/05/2025 07/27/2025 Discontinued (Therapy completed) meloxicam 15 mg oral tablet (14 sources) Nonsteroidal Anti-inflammatory Drug Start: 06-27-2025 End: 07-27-2025 take 1 tablet by mouth once daily at mealtime meloxicam (Mobic) 15 MG tablet Take 1 tablet (15 mg) by mouth daily. Take with food or milk. Do not take additional NSAIDs with this medication 30 tablet 06/27/2025 07/11/2025 Discontinued (Therapy completed) multivit with iron,minerals (MULTIVITAMIN AND MINERALS ORAL) (8 sources) End: 07-29-2024 multivit with iron,minerals (MULTIVITAMIN AND MINERALS ORAL) Take by mouth once daily. 07/29/2024 Discontinued (Discontinued by Patient) multivit with ir on,minerals (MULTIVITAMIN AND MINERALS ORAL) Take by mouth once daily. Active multivit with ir on,minerals (MULTIVITAMIN AND MINERALS ORAL) Take by mouth once daily. 0 Active Comment on above: Take by mouth once d aily. omeprazole 20 mg delayed release oral capsule (8 sources) Proton Pump Inhibitor Start: 03-21-20 End: 07-29-20 24 take 1 capsule by mouth once daily omeprazole (PRILOSEC) 20 mg capsule Indications: Generalized abdominal pain , Bloating Take 1 capsule by mouth once daily. 30 capsule 1 03/21/2022 07/29/2024 Discontinued (Course of therapy completed) Comment on above: Take 1 capsule by [facility] once daily. pantoprazole 40 mg delayed release oral tablet (12 sources) Proton Pump Inhibitor Start: 06-28-20 25 End: 08-27-20 25 take 1 tablet by mouth twice daily pantoprazole (ProtoNix) 40 MG EC tablet Indications: Gastroesophageal reflux disease, unspecified whether esophagitis present Take 1 tablet (40 mg) by mouth 2 times daily. Do not crush, chew, or split. 60 tablet 1 06/28/2025 07/11/2025 Discontinued (Therapy completed) polyethylene glycol 3350 [id number] mg / potassium chloride 2970 mg / sodium bicarbonate 6740 mg / sodium chloride 5860 mg / sodium sulfate 61172 mg powder for oral solution (8 sources) Osmotic Laxative Start: 03-21-20 22 End: 07-29-20 24 peg 3350-Electrolytes (GOLYTELY) 236-22.74-6.74 -5.86 gram suspension Indications: Constipation, unspecified constipation type Refer to printed prep instructions from your provider. 4000 mL 03/21/2022 07/29/2024 Discontinued (Course of therapy completed) Comment on above: Refer to printed pre p instructions from your provider. Problems Active Problems Problem Classification Problem Date Documented Da te Episodic/Chronic Abdominal pain (3 sources) Generalized abdominal pain; Translations: [Generalized abdominal pain] Onset: Episodic Allergic reactions (1 source) Environmental allergy; Translations: [Other allergy status, other than to drugs and biological substances] 07-29-2024 Episodic Anxiety disorders (20 sources) Obsessive-compulsive disorder; Translations: [Obsessive-compulsive disorder, unspecified] Onset: 5 07-09-2022 Chronic Anxiety disorders (2 sources) Anger reaction; Translations: [Irritability and anger] Onset: 5 10-05-2025 Episodic Attention-deficit, conduct, and disruptive behavior disorders (2 sources) Aggressive behavior; Translations: [Other symptoms and signs involving appearance and behavior] 06-16-2025 Episodic Cardiac dysrhythmias (8 sources) Palpitations; Translations: [Palpitations] Onset: 5 09-29-2025 Episodic Diseases of mouth; excluding dental (1 source) Glossodynia; Translations: [Glossodynia] 10-05-2025 Episodic Esophageal disorders (1 source) Gastroesophageal reflux disease; Translations: [Gastro-esophageal reflux disease without esophagitis] 06-28-2025 Chronic Essential hypertension (20 sources) Hypertensive disorder; Translations: [Essential (primary) hypertension] Onset: 9 07-20-2019 Chronic Gastrointestinal hemorrhage (3 sources) Hemorrhage of anus and rectum; Translations: [Rectal hemorrhage] Onset: 5 Episodic Headache; including migraine (20 sources) Refractory migraine with aura; Translations: [Persistent migraine aura without cerebral infarction, intractable, with status migrainosus] Onset: 5 07-14-2025 Chronic Headache; including migraine (2 sources) Headache; including migraine; Translations: [Headache, unspecified] Onset: 5 Hyperplasia of prostate (20 sources) Benign prostatic hypertrophy with outflow obstruction; Translations: [Benign prostatic hyperplasia with lower urinary tract symptoms] Onset: 5 01-12-2025 Chronic Immunizations and screening for infectious disease (2 sources) Suspected disease caused by 2019-nCoV; Translations: [Suspected COVID-19 virus infection] Episodic Malaise and fatigue (20 sources) Fatigue; Translations: [Other fatigue] Onset: 5 06-22-2025 Episodic Mood disorders (20 sources) Depressive disorder; Translations: [Depression] Onset: 9 05-13-2014 Chronic Mycoses (12 sources) Tinea pedis; Translations: [Candidiasis of mouth] Onset: 5 07-18-2025 Episodic Nonspecific chest pain (8 sources) Chest pain, unspecified; Translations: [Chest pain] Onset: 5 09-29-2025 Episodic Other and unspecified benign neoplasm (1 source) History of adenomatous polyp of colon; Translations: [History of adenomatous polyp of colon] 07-28-2025 Episodic Other circulatory disease (7 sources) Thromboangiitis obliterans; 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]] Onset: 5 07-19-2025 Chronic Other circulatory disease (1 source) 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]; Translations: [Thromboangiitis obliterans (Buerger's disease) (HCC)] Onset: 5 Chronic Other connective tissue disease (1 source) Other specified soft tissue disorders; Translations: [Other specified soft tissue disorders] Onset: 5 Episodic Other connective tissue disease (3 sources) Pain in left foot; Translations: [Pain in left foot] Onset: 5 Episodic Other connective tissue disease (4 sources) Pelvic floor dysfunction; Translations: [Other specified disorders of muscle] 06-27-2025 Episodic Other connective tissue disease (20 sources) Bilateral cramp of muscle of lower limbs; Translations: [Cramp and spasm] Onset: 5 07-08-2025 Episodic Other connective tissue disease (20 sources) Pain in bilateral legs; Translations: [Pain in right leg] Onset: 5 07-11-2025 Episodic Other connective tissue disease (2 sources) Pain in left foot; Translations: [Pain in left foot] 07-29-2025 Episodic Other connective tissue disease (1 source) Cramp and spasm; Translations: [Cramp and spasm] Onset: Episodic Other connective tissue disease (2 sources) Other specified disorders of muscle; Translations: [Other specified disorders of muscle] Onset: Episodic Other connective tissue disease (1 source) Cramp; Translations: [Cramp and spasm] 10-05-2025 Episodic Other connective tissue disease (2 sources) Pain in right leg; Translations: [Pain in right leg] Onset: Episodic Other connective tissue disease (2 sources) Pain in left leg; Translations: [Pain in left leg] Onset: Episodic Other gastrointestinal disorders (2 sources) Irritable bowel syndrome characterized by constipation; Translations: [Irritable bowel syndrome with constipation] Onset: 07-28-2025 Chronic Other gastrointestinal disorders (1 source) Irritable bowel syndrome with constipation; Translations: [Irritable bowel syndrome with constipation] Onset: Chronic Other gastrointestinal disorders (3 sources) Abdominal bloating; Translations: [Abdominal distension (gaseous)] Episodic Other gastrointestinal disorders (2 sources) Constipation; Translations: [Constipation, unspecified] Episodic Other gastrointestinal disorders (2 sources) Slow transit constipation; Translations: [Slow transit constipation] 06-27-2025 Episodic Other gastrointestinal disorders (2 sources) Abdominal distension (gaseous); Translations: [Abdominal distension (gaseous)] Onset: Episodic Other hematologic conditions (2 sources) Other abnormality of red blood cells; Translations: [Other abnormality of red blood cells] Onset: Episodic Other injuries and conditions due to external causes (2 sources) Allergy, unspecified, sequela; Translations: [Allergy, unspecified, sequela] Onset: Episodic Other lower respiratory disease (1 source) Chronic cough; Translations: [Chronic cough] 07-29-2024 Episodic Other male genital disorders (1 source) Spermatocele of epididymis, multiple; Translations: [Spermatocele of epididymis, multiple] Onset: 04-12-202 5 Episodic Other male genital disorders (3 sources) Pain of right testicle; Translations: [Right testicular pain] Onset: 5 06-27-2025 Episodic Other male genital disorders (2 sources) Right testicular pain; Translations: [Right testicular pain] Onset: 5 Episodic Other male genital disorders (3 sources) Left testicular pain; Translations: [Left testicular pain] Onset: 5 Episodic Other nervous system disorders (18 sources) Dysarthria; Translations: [Dysarthria and anarthria] Onset: 5 04-21-2023 Episodic Other nervous system disorders (1 source) Paresthesia of lower extremity; Translations: [Paresthesia of skin] 07-11-2025 Episodic Other non-traumatic joint disorders (2 sources) Pain in unspecified joint; Translations: [Pain in unspecified joint] Onset: Episodic Other nutritional; endocrine; and metabolic disorders (20 sources) Morbid obesity; Translations: [Morbid (severe) obesity due to excess calories] Onset: 5 Resolved: 5 06-15-2025 Chronic Other nutritional; endocrine; and metabolic disorders (4 sources) Obesity caused by energy imbalance; Translations: [Class 1 obesity due to excess calories without serious comorbidity with body mass index (BMI) of 32.0 to 32.9 in adult] 07-04-2025 Chronic Other nutritional; endocrine; and metabolic disorders (20 sources) Obesity; Translations: [Class 1 obesity with body mass index (BMI) of 32.0 to 32.9 in adult] Onset: 5 07-04-2025 Chronic Other nutritional; endocrine; and metabolic disorders (2 sources) Other obesity due to excess calories; Translations: [Other obesity due to excess calories] Onset: 5 Chronic Other nutritional; endocrine; and metabolic disorders (2 sources) Body mass index (BMI) 32.0-32.9, adult; Translations: [Body mass index (BMI) 32.0-32.9, adult] Onset: Chronic Other nutritional; endocrine; and metabolic disorders (2 sources) Unintentional weight loss; Translations: [Abnormal weight loss] Episodic Other screening for suspected conditions (not mental disorders or infectious disease) (2 sources) Encounter for screening for lipoid disorders; Translations: [Encounter for screening for lipoid disorders] Onset: 5 Episodic Other skin disorders (3 sources) Abnormal foot color; Translations: [Disorder of pigmentation, unspecified] 07-29-2025 Episodic Other skin disorders (2 sources) Generalized hyperhidrosis; Translations: [Generalized hyperhidrosis] Onset: 5 Episodic Other skin disorders (3 sources) Disorder of pigmentation, unspecified; Translations: [Discoloration of skin of foot] Onset: 5 Episodic Other skin disorders (2 sources) Skin problem; Translations: [Skin Problem] Onset: Episodic Phlebitis; thrombophlebitis and thromboembolism (4 sources) H/O: thrombosis; Translations: [Personal history of other venous thrombosis and embolism] Onset: 5 07-05-2025 Episodic Poisoning by other medications and drugs (2 sources) Allergic reaction to drug; Translations: [Allergy, unspecified, sequela] 07-29-2025 Episodic Residual codes; unclassified (5 sources) Tobacco user; Translations: [Tobacco use] 07-24-2016 Episodic Residual codes; unclassified (1 source) Contact with and (suspected) exposure to mold (toxic); Translations: [Contact with and (suspected) exposure to mold] 07-29-2024 Episodic Residual codes; unclassified (6 sources) Patient encounter status; Translations: [Procedure and treatment not carried out due to patient leaving prior to being seen by health care provider] Onset: 5 06-16-2025 Episodic Residual codes; unclassified (20 sources) Generalized aches and pains; Translations: [Pain, unspecified] Onset: 5 Resolved: 5 07-16-2025 Episodic Substance-related disorders (1 source) Nicotine dependence; Translations: [Nicotine dependence, cigarettes, uncomplicated] 07-29-2024 Chronic Substance-related disorders (9 sources) Marijuana user; Translations: [Cannabis use, unspecified, uncomplicated] Onset: 5 04-21-2023 Episodic Unclassified (2 sources) Patient encounter status 07-28-2022 Unclassified (1 source) Obesity, class 1; Translations: [Obesity, class 1] Onset: 5 Unclassified (2 sources) Nail Problem; Translations: [Nail Problem] Onset: 5 Unclassified (2 sources) Establish Care; Translations: [Establish Care] Onset: 5 Unclassified (1 source) Personal history of adenomatous and serrated colon polyps; Translations: [Personal history of adenomatous and serrated colon polyps] Onset: 5 Unclassified (2 sources) New Patient; Translations: [New Patient] Onset: 5 Varicose veins of lower extremity (1 source) Asymptomatic varicose veins of unspecified lower extremity; Translations: [Varicose veins of ankle] Onset: 5 Episodic Past or Other Problems Problem Classification Problem Date Documented Date Episodic/Chronic Calculus of urinary tract (3 sources) Kidney stone; Translations: [Calculus of kidney] Onset: 01-12-2025 01-12-2025 Episodic Disorders of teeth and jaw (20 sources) Dental caries; Translations: [Dental caries, unspecified] Onset: 08-14-2022 Resolved: 10-05-2025 06-30-2019 Episodic Fluid and electrolyte disorders (20 sources) Hypokalemia; Translations: [Hypokalemia] Onset: 07-04-2025 04-21-2023 Episodic Genitourinary symptoms and ill-defined conditions (20 sources) Increased frequency of urination; Translations: [Frequency of micturition] Onset: 01-12-2025 01-12-2025 Episodic Headache; including migraine (20 sources) Headache; Translations: [Headache] Onset: 06-15-2025 Resolved: 07-04-2025 05-13-2014 Episodic Inflammatory conditions of male genital organs (2 sources) Orchitis and epididymitis; Translations: [Epididymo-orchitis] Onset: 01-12-2025 01-12-2025 Episodic Mood disorders (20 sources) Mood disorders Onset: 06-22-2025 06-22-2025 Noninfectious gastroenteritis (20 sources) Acute gastroenteritis; Translations: [Noninfective gastroenteritis and colitis, unspecified] Onset: 06-22-2025 Resolved: 10-05-2025 06-22-2025 Episodic Open wounds of extremities (9 sources) Laceration of left index finger; Translations: [Laceration without foreign body of left index finger without damage to nail, initial encounter] Onset: 02-15-2025 Resolved: 07-29-2025 12-06-2024 Episodic Other connective tissue disease (20 sources) Foot pain; Translations: [Pain in left foot] Onset: 03-21-2025 Resolved: 10-05-2025 03-15-2025 Episodic Other diseases of kidney and ureters (1 source) Other obstructive and reflux uropathy; 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] Onset: 01-12-2025 Episodic Other male genital disorders (20 sources) Bilateral testicular pain; Translations: [Right testicular pain] Onset: 06-22-2025 Resolved: 10-05-2025 06-22-2025 Episodic Other non-traumatic joint disorders (20 sources) Hip pain; Translations: [Pain in unspecified hip] Onset: 07-04-2025 07-28-2022 Episodic Other non-traumatic joint disorders (20 sources) Joint pain; Translations: [Pain in unspecified joint] Onset: 06-22-2025 Resolved: 10-05-2025 06-22-2025 Episodic Other skin disorders (20 sources) Night sweats; Translations: [Generalized hyperhidrosis] Onset: 07-05-2025 Resolved: 10-05-2025 07-04-2025 Episodic Residual codes; unclassified (18 sources) Blue tongue; Translations: [Other general symptoms and signs] Onset: 07-21-2025 Resolved: 10-05-2025 04-21-2023 Episodic Residual codes; unclassified (20 sources) Environment contains mold; Translations: [Contact with and (suspected) exposure to mold (toxic)] Onset: 07-05-2025 07-05-2025 Episodic Skin and subcutaneous tissue infections (20 sources) Abscess of left foot; Translations: [Cutaneous abscess of left foot] Onset: 03-17-2025 Resolved: 10-05-2025 03-16-2025 Episodic Superficial injury; contusion (20 sources) Contusion of rib; Translations: [Contusion of right front wall of thorax, initial encounter] Onset: 06-15-2025 Resolved: 07-04-2025 07-17-2022 Episodic Unclassified (3 sources) Onset: 07-29-2025 Resolved: 10-05-2025 07-29-2025 Unclassified (1 source) Obesity, class 1; Translations: [Obesity, class 1] Onset: 07-04-2025 Unclassified (1 source) Personal history of adenomatous and serrated colon polyps; Translations: [Personal history of adenomatous and serrated colon polyps] Onset: 07-28-2025 Urinary tract infections (2 sources) Recurrent urinary tract infection; Translations: [Urinary tract infection, site not specified] Onset: 01-12-2025 01-12-2025 Episodic Results Test Name Value Interpretation Reference Range Facility C REACTIVE PROTEINon CRP [Mass/Vol] 3.83 mg/L Normal <10.00 [facility] Comment on above: Performed By: #### C RP #### [facility] (DEFAULT) [address] [place] [address] D-DIMER,QUANTITATIVEon 10-12 D-Dimer, High Sensitivity <0.27 Normal <0.50 [facility] Comment on above: Result Comment: Spec imen integrity checked. The D-Dimer assay is intended for use in conjuction with a clinical pretest probability (PTP) assessment model to exclude pulmonary embolism (PE) and as an aid in the diagnosis of Deep Vein Thrombosis (DVT) in outpatients suspected of PE or DVT. For the assay in use at [facility] ([facility]), a cutoff of <0.50 mcg/mL has a Negative Predictive Value of 99.7% for exclusion of DVT in low and moderate PTP patients. Performed By: #### C RP #### [facility] (DEFAULT) [address] [address] SEDIMENTATION RATE, AUTOMATE Don 10-12-2025 ESR Westergren 2 mm/hr Normal <15 [facility] Comment on above: Performed By: #### E SR #### [facility] (DEFAULT) [address] [place] [address] NT-PRO B-TYPE NATRIURETIC PE PTIDEon 10-06-2025 Interpretation and review of laboratory results Normal [facility] Natriuretic peptide.B prohormone N-Terminal IA [Mass/Vol] 78 pg/mL NINF - 79 pg/mL [facility] Portable XR Chest Viewson IMPRESSION: No evidence of acute disease. OLOGY EXAM: XR CHEST 1 VIE W PORTABLE, 10/06/2025 01:03 AM COMPARISON: No prior studies available for comparison. CLINICAL INDICATIONS: chest pain FINDINGS: Implanted Devices: None. Lungs and Pleural Spaces: The lungs are clear. There is no pneumothorax or pleural effusion. Mediastinum/Anila: The anila and mediastinal contours are within normal limits. Cardiovascular: Heart size is within normal limits. Chest Wall: Normal. RADIOLOGY Guille Andrea, Marcelino Leger MD - 10/06/2025 EXAM: XR CHEST 1 VIEW PORTABLE, 10/06/2025 01:03 AM COMPARISON: No prior studies available for comparison. CLINICAL INDICATIONS: chest pain FINDINGS: Implanted Devices: None. Lungs and Pleural Spaces: The lungs are clear. There is no pneumothorax or pleural effusion. Mediastinum/Anila: The anila and mediastinal contours are within normal limits. Cardiovascular: Heart size is within normal limits. Chest Wall: Normal. IMPRESSION IMPRESSION: No evidence of acute disease. [facility] Radiology Study observation (narrative) [facility] Portable XR Chest ViewsOrder ed By: Marcelino Han on 10-06-2025 [facility] Work Phone: TSH W/[id number] REFLEXon Interpretation and review of laboratory results Normal [facility] TSH Qn 2.637 m[IU]/L [facility] XR CHEST 1 VIEW PORTABLEon 1 12-06-2024 XR CHEST 1 VIEW PORTABLE EXAM: XR CHEST 1 VIEW PORTABLE, 10/06/2025 01:03 AM COMPARISON: No prior studies available for comparison. CLINICAL INDICATIONS: chest pain FINDINGS: Implanted Devices: None. Lungs and Pleural Spaces: The lungs are clear. There is no pneumothorax or pleural effusion. Mediastinum/Anila: The anila and mediastinal contours are within normal limits. Cardiovascular: Heart size is within normal limits. Chest Wall: Normal. IMPRESSION: No evidence of acute disease. Normal [facility] CALCIUMon 10-05-2025 Calcium [Mass/Vol] 9.2 mg/dL 8.6 - 10. 5 mg/dL [facility] Calcium [Mass/Vol] 9.2 mg/dL Normal 8.6-10.5 [facility] Comment on above: Performed By: #### C HM7, IPB, LABHSTI1, TSHQR, CA, YNTBNP, MGO #### [facility] (DEFAULT) [address] [place] [address] CBC AND ELECTRONIC DIFFon Basophils (Bld) [#/Vol] 0.05 10*3/uL 0.00 - 0.09 K/uL [facility] Basophils/100 WBC (Bld) 0.5 % [facility] Differential cell count method Nom (Bld) Electronic Differential O [facility] Eosinophils (Bld) [#/Vol] 0.15 10*3/uL 0.00 - 0.48 K/uL [facility] Eosinophils/100 WBC (Bld) 1.6 % [facility] Erythrocyte distribution width (RBC) [Ratio] 12.3 % 10.9 - 14.3 % [facility] Hematocrit (Bld) [Volume fraction] 47.2 % 39.6 - 48.8 % [facility] Hemoglobin (Bld) [Mass/Vol] 16.6 g/dL 13.4 - 16.8 g/dL [facility] Immature granulocytes (Bld) [#/Vol] K/uL NINF - 0.07 K/uL [facility] Immature granulocytes/100 WBC (Bld) 0.3 % [facility] Lymphocytes (Bld) [#/Vol] 2.66 10*3/uL 0.83 - 3.57 K/uL [facility] Lymphocytes/100 WBC (Bld) 28.7 % [facility] MCH (RBC) [Entitic mass] 31.3 pg 26.1 - 33.3 pg [facility] MCHC (RBC) [Mass/Vol] 35.2 g/dL 31.9 - 36.5 g/dL [facility] MCV (RBC) [Entitic vol] 88.9 fL 79.0 - 94.5 fL [facility] Monocytes (Bld) [#/Vol] 0.75 10*3/uL 0.24 - 0.93 K/uL [facility] Monocytes/100 WBC (Bld) 8.1 % [facility] Neutrophils (Bld) [#/Vol] 5.64 10*3/uL 1.57 - 6.19 K/uL [facility] Nucleated RBC/100 WBC (Bld) [Ratio] 0.0 % NINF [facility] Platelet mean volume (Bld) [Entitic vol] 10.5 fL 8.7 - 12.3 fL [facility] Platelets (Bld) [#/Vol] 217 10*3/uL 146 - 337 K/uL [facility] RBC (Bld) [#/Vol] 5.31 10*6/uL [facility] Segmented neutrophils/100 WBC (Bld) 60.8 % [facility] WBC (Bld) [#/Vol] 9.28 10*3/uL 3.73 - 10.10 K/uL [facility] Basophils (Bld) [#/Vol] 0.05 10*3/uL Normal 0.00-0.09 [facility] Comment on above: Performed By: #### C RP #### [facility] (DEFAULT) [address] [address] Basophils/100 WBC (Bld) 0.5 % Normal [facility] Comment on above: Performed By: #### C RP #### [facility] (DEFAULT) [address] [address] DIFF STATUS Electronic Differential Normal [facility] Comment on above: Performed By: #### C RP #### [facility] (DEFAULT) [address] [place] [address] Eosinophils (Bld) [#/Vol] 0.15 10*3/uL Normal 0.00-0.48 [facility] Comment on above: Performed By: #### C RP #### [facility] (DEFAULT) [address] [place] [address] Eosinophils/100 WBC (Bld) 1.6 % Normal [facility] Comment on above: Performed By: #### C RP #### [facility] (DEFAULT) [address] [place] [address] Hematocrit (Bld) [Volume fraction] 47.2 % Normal 39.6-48.8 [facility] Comment on above: Performed By: #### C RP #### [facility] (DEFAULT) [address] [place] [address] Hemoglobin (Bld) [Mass/Vol] 16.6 g/dL Normal 13.4-16.8 [facility] Comment on above: Performed By: #### C RP #### [facility] (DEFAULT) [address] [place] [address] Immature Grans % 0.3 % Normal [facility] Comment on above: Performed By: #### C RP #### [facility] (DEFAULT) [address] [place] [address] Immature Grans Absolute < Normal <=0.07 [facility] Comment on above: Performed By: #### C RP #### [facility] (DEFAULT) [address] [place] [address] Lymphocytes (Bld) [#/Vol] 2.66 10*3/uL Normal 0.83-3.57 [facility] Comment on above: Performed By: #### C RP #### [facility] (DEFAULT) [address] [place] [address] Lymphocytes/100 WBC (Bld) 28.7 % Normal [facility] Comment on above: Performed By: #### C RP #### [facility] (DEFAULT) [address] [address] MCV (RBC) [Entitic vol] 88.9 fL Normal 79.0-94.5 [facility] Comment on above: Performed By: #### C RP #### [facility] (DEFAULT) [address] [place] [address] Mean Cell Hgb 31.3 pg Normal 26.1-33.3 [facility] Comment on above: Performed By: #### C RP #### [facility] (DEFAULT) [address] [address] Mean Cell Hgb Conc 35.2 g/dL Normal 31.9-36.5 [facility] Comment on above: Performed By: #### C RP #### [facility] (DEFAULT) [address] [address] Monocytes (Bld) [#/Vol] 0.75 10*3/uL Normal 0.24-0.93 [facility] Comment on above: Performed By: #### C RP #### [facility] (DEFAULT) [address] [address] Monocytes/100 WBC (Bld) 8.1 % Normal [facility] Comment on above: Performed By: #### C RP #### [facility] (DEFAULT) [address] [address] Nucleated RBC 0.0 /100 WBC Normal <=0.2 [facility] Comment on above: Performed By: #### C RP #### [facility] (DEFAULT) [address] [address] Platelet mean volume (Bld) [Entitic vol] 10.5 fL Normal 8.7-12.3 [facility] Comment on above: Performed By: #### C RP #### [facility] (DEFAULT) [address] [place] [address] Platelets (Bld) [#/Vol] 217 10*3/uL Normal 146-337 [facility] Comment on above: Performed By: #### C RP #### [facility] (DEFAULT) [address] [place] [address] RBC (Bld) [#/Vol] 5.31 10*6/uL Normal 4.38-5.83 [facility] Comment on above: Performed By: #### C RP #### [facility] (DEFAULT) [address] [place] [address] RBC Distribution 12.3 % Normal 10.9-14.3 [facility] Comment on above: Performed By: #### C RP #### [facility] (DEFAULT) [address] [place] [address] Segs + Bands Auto 60.8 % Normal [facility] Comment on above: Performed By: #### C RP #### [facility] (DEFAULT) [address] [place] [address] Segs + Bands,Absolute Auto 5.64 K/uL Normal 1.57-6.19 [facility] Comment on above: Performed By: #### C RP #### [facility] (DEFAULT) [address] [place] [address] WBC (Bld) [#/Vol] 9.28 10*3/uL Normal 3.73-10.10 [facility] Comment on above: Performed By: #### C RP #### [facility] (DEFAULT) [address] [place] [address] CHEM 7 (LYTES,BUN,CREA,GLUC) on 10-05-2025 Anion gap [Moles/Vol] 12 mmol/L 7 - 17 mmol/L [facility] Chloride [Moles/Vol] 107 mmol/L 98 - 10 8 mmol/L [facility] CO2 [Moles/Vol] 24 mmol/L 21 - 31 mmol/L [facility] Creatinine [Mass/Vol] 0.69 mg/dL Low 0.70 - 1.30 mg/dL [facility] eGFR, CKD-EPI, Male - PINF [facility] Comment on above: Reported eGFR is bas ed on the CKD-EPI 2020 equation using creatinine, age, and sex. Glucose [Mass/Vol] 106 mg/dL 70 - 179 mg/dL [facility] Interpretation and review of laboratory results Abnormal [facility] Osmolality Calc [Osmolality] 291 [facility] Potassium [Moles/Vol] 3.7 mmol/L 3.5 - 5.0 mmol/L [facility] Sodium [Moles/Vol] 139 mmol/L 135 - 145 mmol/L [facility] Urea nitrogen [Mass/Vol] 13 mg/dL 7 - 25 mg/dL [facility] Urea nitrogen/Creatinine [Mass ratio] 19 mg/mg [facility] Anion gap [Moles/Vol] 12 mmol/L Normal 7-17 [facility] Comment on above: Performed By: #### C HM7, IPB, LABHSTI1, TSHQR, CA, YNTBNP, MGO #### [facility] (DEFAULT) [address] [place] [address] Chloride [Moles/Vol] 107 mmol/L Normal 98-108 [facility] Comment on above: Performed By: #### C HM7, IPB, LABHSTI1, TSHQR, CA, YNTBNP, MGO #### [facility] (DEFAULT) [address] [place] [address] CO2 [Moles/Vol] 24 mmol/L Normal 21-31 [facility] Comment on above: Performed By: #### C HM7, IPB, LABHSTI1, TSHQR, CA, YNTBNP, MGO #### [facility] (DEFAULT) [address] [place] [address] Creatinine [Mass/Vol] 0.69 mg/dL Low 0.70-1.30 [facility] Comment on above: Performed By: #### C HM7, IPB, LABHSTI1, TSHQR, CA, YNTBNP, MGO #### [facility] (DEFAULT) [address] [place] [address] eGFR, CKD-EPI, Male > Normal >=60 [facility] Comment on above: Result Comment: Repo rted eGFR is based on the CKD-EPI 2020 equation using creatinine, age, and sex. Performed By: #### C HM7, IPB, LABHSTI1, TSHQR, CA, YNTBNP, MGO #### [facility] (DEFAULT) [address] [place] [address] Glucose [Mass/Vol] 106 mg/dL Normal Nonfastin -179 mg/dL; Fastin-99 [facility] Comment on above: Performed By: #### Kathy HM7, IPB, LABHSTI1, TSHQR, CA, YNTBNP, MGO #### [facility] (DEFAULT) [address] [place] [address] Osmolality [Osmolality] 291 mosm/kg Normal 278-305 [facility] Comment on above: Performed By: #### Kathy HM7, IPB, LABHSTI1, TSHQR, CA, YNTBNP, MGO #### [facility] (DEFAULT) [address] [place] [address] Potassium [Moles/Vol] 3.7 mmol/L Normal 3.5-5.0 [facility] Comment on above: Performed By: #### C HM7, IPB, LABHSTI1, TSHQR, CA, YNTBNP, MGO #### [facility] (DEFAULT) [address] [place] [address] Sodium [Moles/Vol] 139 mmol/L Normal 135-145 [facility] Comment on above: Performed By: #### C HM7, IPB, LABHSTI1, TSHQR, CA, YNTBNP, MGO #### [facility] (DEFAULT) [address] [place] [address] Urea nitrogen [Mass/Vol] 13 mg/dL Normal 7-25 [facility] Comment on above: Performed By: #### C HM7, IPB, LABHSTI1, TSHQR, CA, YNTBNP, MGO #### [facility] (DEFAULT) [address] [place] [address] Urea nitrogen/Creatinine [Mass ratio] 19 mg/mg Normal [facility] Comment on above: Performed By: #### C HM7, IPB, LABHSTI1, TSHQR, CA, YNTBNP, MGO #### [facility] (DEFAULT) [address] [place] [address] HIGH SENSITIVITY TROPONIN I - SINGLE ORDERon 10-05-2025 Interpretation and review of laboratory results Normal [facility] Troponin I.cardiac High sensitivity method [Mass/Vol] 4 ng/L NINF - 53 ng/L [facility] hs-Troponin I 4 ng/L Normal <53 [facility] Comment on above: Order Comment: Acute Coronary Syndrome (ACS): Initial Evaluation and Management: [email or web address] Performed By: #### C HM7, IPB, LABHSTI1, TSHQR, CA, YNTBNP, MGO #### [facility] (DEFAULT) [address] [place] [address] MAGNESIUMon 10-05-2025 Magnesium [Mass/Vol] 1.9 mg/dL 1.6 - 2 .6 mg/dL [facility] Magnesium [Mass/Vol] 1.9 mg/dL Normal 1.6-2.6 [facility] Comment on above: Performed By: #### C HM7, IPB, LABHSTI1, TSHQR, CA, YNTBNP, MGO #### [facility] (DEFAULT) [address] [place] [address] NT-PRO B-TYPE NATRIURETIC PE PTIDEon 10-05-2025 Natriuretic peptide B (Bld) [Mass/Vol] 78 pg/mL Normal <79 [facility] Comment on above: Performed By: #### Kathy HM7, IPB, LABHSTI1, TSHQR, CA, YNTBNP, MGO #### [facility] (DEFAULT) [address] [place] [address] 73580 No Panel Informationon 10-05 [facility] Interpretation and review of laboratory results Normal [facility] PHOSPHATE, INORGANICon 10-05 Phosphate [Mass/Vol] 3.4 mg/dL 2.2 - 4 .6 mg/dL [facility] Phosphorous 3.4 mg/dL Normal 2.2-4.6 [facility] Comment on above: Performed By: #### C HM7, IPB, LABHSTI1, TSHQR, CA, YNTBNP, MGO #### [facility] (DEFAULT) [address] [place] [address] 21213 TSH W/FT4 REFLEXon 5 TSH 2.637 uIU/mL Normal 0.550-4.780 [facility] Comment on above: Performed By: #### Kathy HM7, IPB, LABHSTI1, TSHQR, CA, YNTBNP, MGO #### [facility] (DEFAULT) [address] [place] [address] 18693 Basic metabolic 2000 panelon 09-29-2025 Anion gap [Moles/Vol] 10 mmol/L 10 - 2 0 mmol/L [facility] Calcium [Mass/Vol] 9.2 mg/dL 8.6 - 10. 3 mg/dL [facility] Chloride [Moles/Vol] 107 mmol/L 98 - 10 7 mmol/L [facility] CO2 [Moles/Vol] 26 mmol/L 21 - 32 mmol/L [facility] Comment on above: Bicarbonate results may be falsely elevated when Lactate Dehydrogenase (LDH) concentrations exceed 2,000 U/L due to a temporary reagent manufacturing issue. If significantly elevated LDH levels are suspected, interpret bicarbonate results with caution, correlate with the patient s clinical status, and consider confirming CO2 values using a blood gas analyzer. Creatinine [Mass/Vol] 0.69 mg/dL 0.50 - 1.30 mg/dL [facility] eGFR - PINF [facility] Comment on above: Calculations of ellis mated GFR are performed using the 2020 CKD-EPI Study Refit equation without the race variable for the IDMS-Traceable creatinine methods. https://jasn.asnjournals.org/content/early/ASN.27892 94475 Glucose [Mass/Vol] 97 mg/dL 74 - 99 mg/dL [facility] Interpretation and review of laboratory results Normal [facility] Potassium [Moles/Vol] 4.0 mmol/L 3.5 - 5.3 mmol/L [facility] Sodium [Moles/Vol] 139 mmol/L 136 - 145 mmol/L [facility] Urea nitrogen [Mass/Vol] 9 mg/dL 6 - 23 mg/dL [facility] Anion gap [Moles/Vol] 10 mmol/L Normal 10-20 [facility] Comment on above: Performed By: #### 2 4321-2 #### BRIAN SHARMA ([id number]) [facility] ([facility]) [address] [place] [address] 95372 Calcium [Mass/Vol] 9.2 mg/dL Normal 8.6-10.3 [facility] Comment on above: Performed By: #### 2 4321-2 #### BRIAN SHARMA ([id number]) [facility] ([facility]) [facility] [place] [address] Chloride [Moles/Vol] 107 mmol/L Normal 98-107 [facility] Comment on above: Performed By: #### 2 4321-2 #### BRIAN SHARMA ([id number]) [facility] ([facility]) [address] [place] [address] 57870 CO2 [Moles/Vol] 26 mmol/L Normal 21-32 [facility] Comment on above: Result Comment: Bica rbonate results may be falsely elevated when Lactate Dehydrogenase (LDH) concentrations exceed 2,000 U/L due to a temporary reagent manufacturing issue. If significantly elevated LDH levels are suspected, interpret bicarbonate results with caution, correlate with the patient's clinical status, and consider confirming CO2 values using a blood gas analyzer. Performed By: #### 2 4321-2 #### BRIAN SHARMA ([id number]) [facility] ([facility]) [address] [place] [address] 28960 Creatinine [Mass/Vol] 0.69 mg/dL Normal 0.50-1.30 [facility] Comment on above: Performed By: #### 2 4321-2 #### BRIAN SHARMA ([id number]) [facility] ([facility]) [address] [place] [address] 37550 Glomerular filtration rate >90 Normal >60 [place] Comment on above: Result Comment: Calc ulations of estimated GFR are performed using the 2020 CKD-EPI Study Refit equation without the race variable for the IDMS-Traceable creatinine methods. https://jasn.asnjournals.org/content/early//ASN.50309 35179 Performed By: #### 2 4321-2 #### BRIAN SHARMA ([id number]) [facility] ([facility]) [address] [place] [address] 20199 Glucose [Mass/Vol] 97 mg/dL Normal 74-99 [facility] Comment on above: Performed By: #### 2 4321-2 #### BRIAN SHARMA ([id number]) [facility] ([facility]) [address] [place] [address] 83289 Potassium [Moles/Vol] 4.0 mmol/L Normal 3.5-5.3 [facility] Comment on above: Performed By: #### 2 4321-2 #### BRIAN SHARMA ([id number]) [facility] ([facility]) [address] [place] [address] Sodium [Moles/Vol] 139 mmol/L Normal 136-145 [facility] Comment on above: Performed By: #### 2 4321-2 #### BRIAN SHARMA ([id number]) [facility] ([facility]) [address] [place] [address] Urea nitrogen [Mass/Vol] 9 mg/dL Normal 6-23 [place] Comment on above: Performed By: #### 2 4321-2 #### BRIAN SHARMA ([id number]) [facility] ([facility]) [address] [place] [address] 49203 CBC W Auto Differential pane l (Bld)on 09-29-2025 Basophils (Bld) [#/Vol] 0.04 10*3/uL [facility] Basophils/100 WBC (Bld) 0.4 % 0.0 - 2.0 % [facility] Eosinophils (Bld) [#/Vol] 0.05 10*3/uL [facility] Eosinophils/100 WBC (Bld) 0.5 % 0.0 - 6.0 % [facility] Erythrocyte distribution width (RBC) [Ratio] 12.1 % 11.5 - 14.5 % [facility] Hematocrit (Bld) [Volume fraction] 46.0 % 41.0 - 52.0 % [facility] Hemoglobin (Bld) [Mass/Vol] 16.0 g/dL 13.5 - 17.5 g/dL [facility] Immature granulocytes (Bld) [#/Vol] 0.03 10*3/uL [facility] Immature granulocytes/100 WBC (Bld) 0.3 % 0.0 - 0.9 % [facility] Comment on above: Immature Granulocyte Count (IG) includes promyelocytes, myelocytes and metamyelocytes but does not include bands. Percent differential counts (%) should be interpreted in the context of the absolute cell counts (cells/UL). Lymphocytes (Bld) [#/Vol] 1.83 10*3/uL [facility] Lymphocytes/100 WBC (Bld) 19.8 % 13.0 - 44.0 % [facility] MCH (RBC) [Entitic mass] 31.4 pg 26.0 - 34.0 pg [facility] MCHC (RBC) [Mass/Vol] 34.8 g/dL 32.0 - 36.0 g/dL [facility] MCV (RBC) [Entitic vol] 90 fL 80 - 100 fL [facility] Monocytes (Bld) [#/Vol] 0.64 10*3/uL [facility] Monocytes/100 WBC (Bld) 6.9 % 2.0 - 10.0 % [facility] Neutrophils (Bld) [#/Vol] 6.65 10*3/uL [facility] Comment on above: Percent differential counts (%) should be interpreted in the context of the absolute cell counts (cells/uL). Neutrophils/100 WBC (Bld) 72.1 % 40.0 - 80.0 % [facility] Nucleated RBC/100 WBC (Bld) [Ratio] 0.0 % [facility] Platelets (Bld) [#/Vol] 197 10*3/uL [facility] RBC (Bld) [#/Vol] 5.09 10*6/uL [facility] WBC (Bld) [#/Vol] 9.2 10*3/uL [facility] Basophils (Bld) [#/Vol] 0.04 x10*3/uL Normal 0.00-0.10 [place] Comment on above: Performed By: #### 5 7021-8 #### BRIAN SHARMA ([id number]) [facility] ([facility]) [address] [place] [address] 74594 Basophils/100 WBC (Bld) 0.4 % Normal 0.0-2.0 [place] Comment on above: Performed By: #### 5 7021-8 #### BRIAN SHARMA ([id number]) [facility] ([facility]) [address] [place] [address] 17137 Eosinophils (Bld) [#/Vol] 0.05 x10*3/uL Normal 0.00-0.70 [place] Comment on above: Performed By: #### 5 7021-8 #### BRIAN SHARMA ([id number]) [facility] ([facility]) [address] [place] [address] 81008 Eosinophils/100 WBC (Bld) 0.5 % Normal 0.0-6.0 [place] Comment on above: Performed By: #### 5 7021-8 #### BRIAN SHARMA ([id number]) [facility] ([facility]) [address] [place] [address] 87525 Erythrocyte distribution width (RBC) [Ratio] 12.1 % Normal 11.5-14.5 [place] Comment on above: Performed By: #### 5 7021-8 #### BRIAN SHARMA ([id number]) [facility] ([facility]) [address] [place] [address] 25813 Hematocrit (Bld) [Volume fraction] 46.0 % Normal 41.0-52.0 [place] Comment on above: Performed By: #### 5 7021-8 #### BRIAN SHARMA ([id number]) [facility] ([facility]) [address] [place] [address] 49720 Hemoglobin (Bld) [Mass/Vol] 16.0 g/dL Normal 13.5-17.5 [place] Comment on above: Performed By: #### 5 7021-8 #### BRIAN SHARMA ([id number]) [facility] ([facility]) [address] [place] [address] 78812 Immature granulocytes (Bld) [#/Vol] 0.03 x10*3/uL Normal 0.00-0.70 [place] Comment on above: Performed By: #### 5 7021-8 #### BRIAN SHARMA ([id number]) [facility] ([facility]) [address] [place] [address] 50334 Immature granulocytes/100 WBC (Bld) 0.3 % Normal 0.0-0.9 [place] Comment on above: Result Comment: Patti ture Granulocyte Count (IG) includes promyelocytes, myelocytes and metamyelocytes but does not include bands. Percent differential counts (%) should be interpreted in the context of the absolute cell counts (cells/UL). Performed By: #### 5 7021-8 #### BRIAN SHARMA ([id number]) [facility] ([facility]) [address] [place] [address] Lymphocytes (Bld) [#/Vol] 1.83 x10*3/uL Normal 1.20-4.80 [place] Comment on above: Performed By: #### 5 7021-8 #### BRIAN SHARMA ([id number]) [facility] ([facility]) [address] [place] [address] Lymphocytes/100 WBC (Bld) 19.8 % Normal 13.0-44.0 [place] Comment on above: Performed By: #### 5 7021-8 #### BRIAN SHARMA ([id number]) [facility] ([facility]) [address] [place] [address] MCH (RBC) [Entitic mass] 31.4 pg Normal 26.0-34.0 [place] Comment on above: Performed By: #### 5 7021-8 #### BRIAN SHARMA ([id number]) [facility] ([facility]) [address] [place] [address] 44179 MCHC (RBC) [Mass/Vol] 34.8 g/dL Normal 32.0-36.0 [facility] Comment on above: Performed By: #### 5 7021-8 #### BRIAN SHARMA ([id number]) [facility] ([facility]) [address] [place] [address] 11582 MCV (RBC) [Entitic vol] 90 fL Normal 80-100 [place] Comment on above: Performed By: #### 5 7021-8 #### BRIAN SHARMA ([id number]) [facility] ([facility]) [address] [place] [address] 81655 Monocytes (Bld) [#/Vol] 0.64 x10*3/uL Normal 0.10-1.00 [place] Comment on above: Performed By: #### 5 7021-8 #### BRIAN SHARMA ([id number]) [facility] ([facility]) [address] [place] [address] Monocytes/100 WBC (Bld) 6.9 % Normal 2.0-10.0 [place] Comment on above: Performed By: #### 5 7021-8 #### BRIAN SHARMA ([id number]) [facility] ([facility]) [address] [place] [address] 83958 Neutrophils (Bld) [#/Vol] 6.65 x10*3/uL Normal 1.20-7.70 [place] Comment on above: Result Comment: Perc ent differential counts (%) should be interpreted in the context of the absolute cell counts (cells/uL). Performed By: #### 5 7021-8 #### BRIAN SHARMA ([id number]) [facility] ([facility]) [address] [place] [address] 30761 Neutrophils/100 WBC (Bld) 72.1 % Normal 40.0-80.0 [place] Comment on above: Performed By: #### 5 7021-8 #### BRIAN SHARMA ([id number]) [facility] ([facility]) [address] [place] [address] 82585 Nucleated RBC/100 WBC (Bld) [Ratio] 0.0 /100 WBCs Normal 0.0-0.0 [place] Comment on above: Performed By: #### 5 7021-8 #### BRIAN SHARAM ([id number]) [facility] ([facility]) [address] [place] [address] 26785 Platelets (Bld) [#/Vol] 197 x10*3/uL Normal 150-450 [place] Comment on above: Performed By: #### 5 7021-8 #### BRIAN SHARMA ([id number]) [facility] ([facility]) [address] [place] [address] 16956 RBC (Bld) [#/Vol] 5.09 x10*6/uL Normal 4.50-5.90 [facility] Comment on above: Performed By: #### 5 7021-8 #### BRIAN SHARMA ([id number]) [facility] ([facility]) [address] [place] [address] WBC (Bld) [#/Vol] 9.2 x10*3/uL Normal 4.4-11.3 [facility] Comment on above: Performed By: #### 5 7021-8 #### TORRES ZACHARY ([id number]) [facility] ([facility]) [address] [place] [id number] ECG 12-LEADon 09-29-2025 ECG 12-LEAD Ventricular Rate 89 Atrial Rate 89 P-R Interval 156 QRS Duration 94 Q-T Interval 372 QTC Calculation(Bazett) 452 P [place] 74 R [place] 82 T [place] 111 QRS Count 15 Q Onset 217 P Onset 139 P Offset 197 T Offset 403 QTC Fredericia 424 Diagnosis Normal sinus rhythm with sinus arrhythmia Nonspecific ST abnormality Abnormal ECG When compared with ECG of 29-SEP-2025 13:09, (unconfirmed) T wave inversion now evident in Lateral leads See ED provider note for full interpretation and clinical correlation Confirmed by Charis Sommers ([id number]) on 10/02/2025 3:36:31 PM Normal [facility] Tropinin I.cardiac panel Hig h sensitivity methodon 09-29-2025 Interpretation and review of laboratory results Normal [facility] Less than 99th perce ntile of normal range cutoff- Female and children under 18 years old <14 ng/L; Male <21 ng/L: Negative Repeat testing should be performed if clinically indicated. Female and children under 18 years old 14-50 ng/L; Male 21-50 ng/L: Consistent with possible cardiac damage and possible increased clinical risk. Serial measurements may help to assess extent of myocardial damage. >50 ng/L: Consistent with cardiac damage, increased clinical risk and myocardial infarction. Serial measurements may help assess extent of myocardial damage. NOTE: Children less than 1 year old may have higher baseline troponin levels and results should be interpreted in conjunction with the overall clinical context. NOTE: Troponin I testing is performed using a different testing methodology at [facility] than at other [facility]. Direct result comparisons should only be made within the same method. [facility] Interpretation and review of laboratory results Normal [facility] Less than 99th perce ntile of normal range cutoff- Female and children under 18 years old <14 ng/L; Male <21 ng/L: Negative Repeat testing should be performed if clinically indicated. Female and children under 18 years old 14-50 ng/L; Male 21-50 ng/L: Consistent with possible cardiac damage and possible increased clinical risk. Serial measurements may help to assess extent of myocardial damage. >50 ng/L: Consistent with cardiac damage, increased clinical risk and myocardial infarction. Serial measurements may help assess extent of myocardial damage. NOTE: Children less than 1 year old may have higher baseline troponin levels and results should be interpreted in conjunction with the overall clinical context. NOTE: Troponin I testing is performed using a different testing methodology at [facility] than at [facility]. Direct result comparisons should only be made within the same method. [facility] Troponin I, High Sensitivity , Initialon 09-29-2025 Tropinin I.cardiac panel High sensitivity method 3 ng/L 0 - 20 ng/L [facility] Troponin I.cardiac panelon 1 Tropinin I.cardiac panel High sensitivity method 4 ng/L Normal 0-20 [place] Comment on above: Order Comment: Less than 99th percentile of normal range cutoff-Female and children under 18 years old <14 ng/L; Male <21 ng/L: NegativeRepeat testing should be performed if clinically indicated.Female and children under 18 years old 14-50 ng/L; Male 21-50 ng/L:Consistent with possible cardiac damage and possible increased clinicalrisk. Serial measurements may help to assess extent of myocardial damage.>50 ng/L: Consistent with cardiac damage, increased clinical risk andmyocardial infarction. Serial measurements may help assess extent ofmyocardial damage.NOTE: Children less than 1 year old may have higher baseline troponinlevels and results should be interpreted in conjunction with the overallclinical context.NOTE: Troponin I testing is performed using a differenttesting methodology at [facility] than at [facility]. Direct result comparisons should onlybe made within the same method. Performed By: #### 4 537-7 #### TORRES ZACHARY ([id number]) [facility] ([facility]) [address] [place] [address] Tropinin I.cardiac panel High sensitivity method 3 ng/L Normal 0-20 [place] Comment on above: Order Comment: Less than 99th percentile of normal range cutoff-Female and children under 18 years old <14 ng/L; Male <21 ng/L: NegativeRepeat testing should be performed if clinically indicated.Female and children under 18 years old 14-50 ng/L; Male 21-50 ng/L:Consistent with possible cardiac damage and possible increased clinicalrisk. Serial measurements may help to assess extent of myocardial damage.>50 ng/L: Consistent with cardiac damage, increased clinical risk andmyocardial infarction. Serial measurements may help assess extent ofmyocardial damage.NOTE: Children less than 1 year old may have higher baseline troponinlevels and results should be interpreted in conjunction with the overallclinical context.NOTE: Troponin I testing is performed using a differenttesting methodology at [facility] than at [facility]. Direct result comparisons should onlybe made within the same method. Performed By: #### 4 537-7 #### TORRES ZACHARY ([id number]) [facility] ([facility]) [address] [place] [address] Troponin, High Sensitivity, 1 Houron 09-29-2025 Tropinin I.cardiac panel High sensitivity method 4 ng/L 0 - 20 ng/L [facility] XR CHEST 1 VIEWon 09-29-2025 XR CHEST 1 VIEW Interpreted By: Jamil Capone, STUDY: XR CHEST 1 VIEW INDICATION: Signs/Symptoms:cp. COMPARISON: None ACCESSION NUMBER(S): [id number] ORDERING CLINICIAN: GARTH AGUILAR FINDINGS: No consolidation, effusion, edema, or pneumothorax. Heart size within normal limits. IMPRESSION: No evidence of acute intrathoracic abnormality. Signed by: Jamil Goode 09/29/2025 3:26 PM Dictation workstation: [id number] Normal [place] XR Chest Single viewon 09-29 No evidence of acute intrathoracic abnormality. Signed by: Jamil Goode 09/29/2025 3:26 PM Dictation workstation: [id number] MMODAL Interpreted By: Jamil Capone, STUDY: XR CHEST 1 VIEW INDICATION: Signs/Symptoms:cp. COMPARISON: None ACCESSION NUMBER(S): [id number] ORDERING CLINICIAN: GARTH AGUILAR FINDINGS: No consolidation, effusion, edema, or pneumothorax. Heart size within normal limits. [facility] MMODAL Jamil Goode MD - 09/29/2025 Interpreted By: Jamil Goode, STUDY: XR CHEST 1 VIEW INDICATION: Signs/Symptoms:cp. COMPARISON: None ACCESSION NUMBER(S): [id number] ORDERING CLINICIAN: GARTH AGUILAR FINDINGS: No consolidation, effusion, edema, or pneumothorax. Heart size within normal limits. IMPRESSION: No evidence of acute intrathoracic abnormality. Signed by: Jamil Goode 09/29/2025 3:26 PM Dictation workstation: [id number] [facility] Work Phone: Radiology Study observation (narrative) [facility] Work Phone: XR Chest Single viewOrdered By: Jamil Goode on 09-29-2025 [facility] Work Phone: CNOVon 09-27-2025 CNOV Office Visit (PERVMN ) ----- CE BAER II ([id number]) 1985 M Date Time Provider Department 09/27/25 12:15 PM JOHAN FAUST During your visit today, we recorded the following information about you: Pulse Blood pressure Weight Height 58/minute 147/88 104.9 kg 1.753 m Johan Faust MD 09/27/2025 1:37 PM Signed [facility] Jan[facility] Nieves Department of Cardiovascular Medicine SECTION OF VASCULAR MEDICINE OUTPATIENT VISIT DATE 09/27/2025 OUTPATIENT VISIT TYPE CONSULTATION Consult regarding: erythromelalgia Consult requested by: SELF Primary care physician: No primary care provider on file. History of present illness: 40yom. PMHx bipolar disorder, adenomatous polyps, IBS He has multiple c/o burning in feet, hands, discoloration throughout his body, localized swelling mostly in left foot but also in the thighs and trunk. He also describes veins that "bulge" intermittently in the dorsal aspect of the hands, as well as dorsum of the feet and medial aspect of lower legs. Review of pertinent outside records indicates: _ Recent appointment for fungal infection of the skin (foot ?) _ Patient indicated his apartment had mold; testing done in his apartment with results showing high levels of several fungi tested _ Several ED visits due to foot pain, athlete's foot c/b development of fever, chills, sweats, rigors and swelling of 4th and 5th toes => diagnosed and treated for foot cellulitis. _ On 03/17/25 seen [facility] ([place], [place]) ER for a pain between L 4th/th toes; apparently had I+D of foot abscess. He was prescribed oral antibiotics. Then had total body erythema/hives and skin desquamation consistent with sulfa allergy as per notes. _ PAtient stated to ED physicians that the foot has drained pus on a few occasions since then and becomes intermittently swollen and red in that area but then resolves _ Went to ED in [place] for CP but reportedly left AMA _ Diagnosed with pneumonia in the summer 2024. _ A note from [facility] 07/05/25 states that patient "had seen environmental doctors" who told him that he had multiple toxins in his body and antibiotic resistant infections in his lungs and skin. He left the ED as he c/o that he did not like the doctor's tone of voice and felt that he was not having symptoms addressed". MAY 2025 _ C/o rectal bleeding and hematuria, testicular pain; seen by Urology late MAY 2025 - Unremarkable ultrasound of the testicles with small bilateral hydroceles. _ Left-sided headaches/migraines, severe pain on the left side of the neck prompting a visit to the ED at [facility] () 07/18/25 _ Other symptoms listed include polyarthralgia's including elbows and knees, myalgias and exhaustion all the time. _ There is also c/o seizures due to "environmental toxins". _ Prior hx of alcohol abuse and in recovery since 2017. He had evaluation by Vascular Surgery at [facility] in MAY 2025 -- BLAKN and TBI normal bilaterally. A concern was raised about Buerger's disease due to patient's h/o smoking cigarettes - as many as 3 ppD, but he tells me that he has cut down and does not smoke more than one pack daily. He also said that the vascular test was completed earlier than it should. He denies intermittent claudication, worsening leg pain at shorter distances, buttock pain with walking, resting leg pain, feet/ankle/toe ulcerations, leg pain with limb elevation, need to sleep with leg(s) in dependent position (eg, hanging from the side of the bed). He showed me dozens of pictures which he says were from his legs, hands, feet, arms. They mostly show veins around the ankles and dorsal aspect of the feet and hands. Some pictures were taken due to discoloration which I could not appreciate. He says that other providers told him he had vascular disease'. Diagnoses such as Raynaud's, Buerger's disease, erythromelalgia, and "blood clots' were mentioned to him. Allergies: is allergic to iodine and shellfish derived. Medications: fexofenadine (VIVI ALLERGY) 180 mg tablet Take 1 tablet by mouth once daily. triamcinolone acetonide (NASACORT) 55 mcg nasal inhaler Use 2 Sprays in the nose once daily. Past medical history: has a past medical history of Adenomatous colon polyp, Bipolar 1 disorder (HCC) (07/21/2019), Depression, Headache, History of alcohol use disorder (2017), History of substance abuse ([facility]) (2004), and Hypertension (07/20/2019). Past surgical history: has a past surgical history that includes colonoscopy (04/02/2022) and egd (04/02/2022). Family history: family history includes Diabetes in his father, maternal grandfather, maternal grandmother, paternal grandfather, and paternal grandmother; Hypertension in his father and sister; Liver Disease in his maternal grandmother, paternal grandfather, and paternal grandm (more content not included)... Normal [facility] ECG 12-LEADon 09-26-2025 ECG 12-LEAD Ventricular Rate 61 Atrial Rate 61 P-R Interval 158 QRS Duration 98 Q-T Interval 418 QTC Calculation(Bazett) 420 P [place] 64 R Hartford 84 T [place] 72 QRS Count 10 Q Onset 218 P Onset 139 P Offset 195 T Offset 427 QTC Fredericia 420 Diagnosis Normal sinus rhythm Normal ECG When compared with ECG of 18-JUL-2025 20:28, No significant change was found See ED provider note for full interpretation and clinical correlation Confirmed by Victoria García ([id number]) on 09/29/2025 2:49:27 PM Normal [facility] DNA analysis discrete [employer] ce variation panel Mol[employer] (Bld/Tiss)on 09-23-2025 Disclaimer See Notes [facility] Comment on above: Result Comment: This test was developed and validated by [facility]. This test has not been cleared or approved by the [place] Food and Drug Administration (FDA). The [facility] laboratory is accredited by the College [employer] [place] [employer] (CAP) and certified under the Clinical Laboratory Improvement Amendments (CLIA #: [id number]) to perform high-complexity clinical tests. This test is used for clinical purposes. It should not be regarded as investigational use only or for research use only. Performed By: #### 5 5208-3 #### [facility] (DEFAULT) [address] [address] Genes Tested See Notes Normal [facility] Comment on above: Result Comment: APOB , BRCA1, BRCA2, EPCAM, LDLR, LDLRAP1, PCSK9, PMS2, MLH1, MSH2, MSH6 Performed By: #### 5 5208-3 #### [facility] (DEFAULT) [address] [address] GENETIC ANALYSIS REPORT Normal [facility] Comment on above: Result Comment: No p athogenic or likely pathogenic variants were detected in the genes analyzed by this test.Genetic test results should be interpreted in the context of an individual's personal medical and family history. Alteration to medical management is NOT recommended based solely on this result. Clinical correlation is advised.Additional Considerations- This is a screening test; individuals may still carry pathogenic or likely pathogenic variant(s) in the tested genes that are not detected by this test.- For individuals at risk for these or other related conditions based on factors including personal or family history, diagnostic testing is recommended.- The absence of pathogenic or likely pathogenic variant(s) in the analyzed genes, while reassuring, does not eliminate the possibility of a hereditary condition; there are other variants and genes associated with heart disease and hereditary cancer that are not included in this test. Performed By: #### 5 5208-3 #### [facility] (DEFAULT) [address] [place] [address] Genetic Diseases Assessed Normal [facility] Comment on above: Result Comment: This is a screening test and does not detect all pathogenic or likely pathogenic variant(s) in the tested genes; diagnostic testing is recommended for individuals with a personal or family history of heart disease or hereditary cancer. [facility] Tier One Population Screen is a screening test that analyzes 11 genes related to hereditary breast and ovarian cancer (HBOC) syndrome, Alfredo syndrome, and familial hypercholesterolemia. This test only reports clinically significant pathogenic and likely pathogenic variants but does not report variants of uncertain significance (VUS). In addition, analysis of the PMS2 gene excludes exons 11-15, which overlap with a known pseudogene (PMS2CL). Performed By: #### 5 5208-3 #### [facility] (DEFAULT) [address] [place] [address] Interpretation Methods and Limitations See Notes Normal [facility] Comment on above: Result Comment: Extr acted DNA is enriched for targeted regions and then sequenced using the [facility] [facility] Exome+ (R) assay on an Illumina DNA sequencing system. Data is then aligned to a modified version of GRCh38 and all genes are analyzed using the WALTER transcript and WALTER Plus Clinical transcript, when available. Small variant calling is completed using a customized version of [employer] software, augmented by a proprietary small variant caller for difficult variants. Copy number variants (CNVs) are then called using a proprietary bioinformatics pipeline based on depth analysis with a comparison to similarly sequenced samples. Analysis of the PMS2 gene is limited to exons 1-10. Both the MSH2 Starla inversion (exons 1-7) and the BRCA2 Alu insertion are detected by identifying discordant read-pairs spanning the breakpoints. The interpretation and reporting of variants in APOB, PCSK9, and LDLR is specific to familial hypercholesterolemia; variants associated with hypobetalipoproteinemia are not included. Interpretation is based upon guidelines published by the [place] [employer] (ACMG), the Association for Molecular Pathology (AMP) or their modification by ClinGen Variant Curation Expert Panels when available and/or review of previous clinical assertions available in the ClinVar database. Interpretation is limited to the transcripts indicated on the report and +/- 10 bp into intronic regions, except as noted below. [place] variant classifications include pathogenic, likely pathogenic, variant of uncertain significance (VUS), likely benign, and benign. Only variants classified as pathogenic and likely pathogenic are included in the report. All reported variants are confirmed through secondary manual inspection of DNA sequence data or orthogonal testing. Risk estimations and management guidelines included in this report are based on analysis of primary literature and recommendations of applicable professional societies, and should be regarded as approximations.Based on validation studies, this assay delivers > 99% sensitivity and specificity for single nucleotide variants and insertions and deletions (indels) up to 20 bp. Larger indels and complex variants are also reported but sensitivity may be reduced. Based on validation studies, this assay delivers > 99% sensitivity to multi-exon CNVs and > 90% sensitivity to single-exon CNVs. This test may not detect variants in challenging regions (such as short tandem repeats, homopolymer runs, and segment duplications), sub-exonic CNVs, chromosomal aneuploidy, or variants in the presence of mosaicism. Phasing will be attempted and reported, when possible. Structural rearrangements such as inversions, translocations, complex rearrangements, and gene conversions are not tested in this assay unless explicitly indicated. Additionally, deep intronic, promoter, and enhancer regions may not be covered. It is important to note that this is a screening test and cannot detect all disease-causing variants. A negative result does not guarantee the absence of a rare, undetectable variant in the genes analyzed; consider using a diagnostic test if there is significant personal and/or family history of one of the conditions analyzed by this test. Any potential incidental findings outside of these genes and conditions will not be identified, nor reported. The results of a genetic test may be influenced by various factors, including bone marrow transplantation, blood transfusions, or in rare cases, hematolymphoid neoplasms.Gene Specific Notes:APOB: analysis is limited to c.38200N>A and c.22701B>T; BRCA1: sequencing analysis extends to CDS +/-20 bp; BRCA2: analysis includes detection of c.[id number] and sequencing analysis extends to CDS +/-20 bp. EPCAM: analysis is limited to CNV of exons 8-9; LDLR: analysis includes CNV of the promoter; MLH1: analysis includes CNV of the promoter; MSH2: analysis includes detection of the Starla inversion (inversion of exons 1-7) and detection of c.942+3A>T, PMS2: analysis is limited to exons 1-10. Roberto Perez, PhD, FACG [email or web address] Performed By: #### 5 5208-3 #### [facility] (DEFAULT) [address] [place] [address] Overall Interpretation Normal [facility] Comment on above: Result Comment: Nega tive No pathogenic (disease-causing) genetic variants related to alfredo syndrome, hereditary breast and ovarian cancer (BRCA1 and BRCA2 only), or familial hypercholesteremia were detected in this screening test.? ? Based on your personal and family medical history, additional risk assessment or genetic testing may be appropriate for you.?? ? Please follow up with your healthcare provider if you have additional questions or concerns and continue regular health maintenance and screening.? Performed By: #### 5 5208-3 #### [facility] (DEFAULT) [address] [place] [address] Sequencing Location See Notes Normal [facility] Comment on above: Result Comment: Sequ encing done at [facility] [address] [place] [address], [address], [place] [address] (CLIA# [id number]) Performed By: #### 5 5208-3 #### [facility] (DEFAULT) [address] [place] [address] 36on 08-18-2025 36 Patient called with questions regarding his office visit with Dr. Ariza. I told him he could view his notes on [facility] [employer] or he could send us a record release and we could fax his note to whatever physician he would like. He also mentioned his PVR results. I told him he could obtain those from ordering physician as we did not order that particular test. Normal [facility]03[facility]20[facility] ----- CE BAER II ([id number]) 1985 M Date Time Provider Department 08/03/25 NURSE CLINICAL DERMMN During your visit today, we recorded the following information about you: Eugenia Christiansen RN 08/03/2025 9:43 AM Signed ----- Message from Lucita Rios sent at 07/21/2025 10:33 AM EDT ----- Regarding: skin fungal infection .Patient has been identified by name and Date of : Yes Patient: Ce Baer II Date of : 1985 Provider for this encounter : bacterial/ skin fungal infection No primary care provider on file. Reason for call: Triage ##patient received treatment from prior sub specialist## Was an appointment scheduled: No Reason for requesting visit (RFV/signs and symptoms/diagnosis) : skin infection (all over body) Person calling: self Return call to: self Call patient at: at home [phone] (home) [phone] (cell) Payor: [facility] MEDICARE / Plan: [facility] DUAL COMPLETE HMO POS SNP / Product Type: Medicare / Eugenia Butcher RN 08/03/2025 9:43 AM Signed Silver can you please obtain records from where patient was treated previously? Eugenia Christiansen RN August 03, 2025 9:43 AM [facility] [place] 08/03/2025 9:47 AM Signed Called pt and left VM as well as sent a MC message. Allergies As of Date: 08/03/2025 Noted Allergy Reaction IODINE 03/07/2014 2 - Rash SHELLFISH DERIVED 06/29/2019 14 - Other: See Comments Date Reviewed: 01/12/2025 Reviewed by: Kenna Fofana MA - Fully Assessed Prescriptions as of 08/03/2025 - fexofenadine (VIVI ALLERGY) 180 mg tablet Take 1 tablet by mouth once daily. - triamcinolone acetonide (NASACORT) 55 mcg nasal inhaler Use 2 Sprays in the nose once daily. Meds Comments as of 01/31/2016: No longer taking z-faraz 01/31/16. Problem List As Of Date 08/03/2025 Noted Resolved Depression [F32.A] Headache [R51] Hypertension [I10] 07/20/2019 Bipolar 1 disorder (HCC) [F31.9] 07/21/2019 Encounter Status:Closed by EUGENIA CHRISTIANSEN on 08/03/25 [facility] 36on 07-29-2025 Please explain to Mr Baer that he !) does not have INVASIVE yeast infection, just mucocutaneous, and that other therapies for C glabrata would have more SE. 2) that acidic environment of stomach is required for absorption of Itraconazole. However, if he does not wish to take it, Nystatin swish and swallow 5 x per day typically kills C glabrata. I am wondering if he took it 4-5 x day for at least 3 -4 d to give it a good chance of working. [facility] 3607-25-2025 I am not sure who prescribed Fluconazole for Ce's thrush but it typically is not active against C. Glabrata. I will write a short course of Itraconazole for him and it needs to be taken daily with an acidic juice, like grapefruit juice, for the best absorption It is hard to cure a oral yeast infection in a smoker as the chemicals in cigarettes do local immune harm in the mouth/throat. Please call him and explain. [place] [address]on 07-22-2025 Name of caller: Herb elias (Also Heather from [facility]) Contact phone number: [phone] Relationship to Patient: patient (also [facility]) Provider: Alisa Practice: [facility] Chief Complaint/Reason for Call: Needs new referral with update. 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 Needs to state his legs, feet, and knees has swelling. His skin is blanching. Referral is going to [facility]. Brittany Marr. Best time of day caller can be reached: any Patient advised that office/PCP has 24-48 business hours to return their call: Yes [facility] 36 Received call from [facility] (pt's secondary insurance) informing that pt is requesting Dr. Anna send a referral to [facility]. Spoke w/provider's DENITA Small who verified that Dr. Anna will not be sending a referral to the new ID office as this must come from pt's PCP. [facility] treasury representative that pt can fill out a SHAHLA at [facility] which would then be faxed to our office & we can then fax his [facility] ID records to them. Recreation Superintendent verbalized understanding, thanked, & said she would inform pt of the above. Normal [facility] 36on 07-21-2025 36 Message released to patient as written. Yes Patient's further questions if applicable: Transferred the patient to the office for previsit planning. Were all questions from office addressed or relayed to the patient from encounter: Yes Normal [facility] 36 Attempting to reach patient for Pre Charting. If patient returns call, please put call thru to office. Thank You [facility] CBC W Auto Differential pane l (Bld)on 07-20-2025 Basophils (Bld) [#/Vol] 51 10*3/uL [facility] Basophils/100 WBC (Bld) 0.7 % [facility] Eosinophils (Bld) [#/Vol] 117 10*3/uL [facility] Eosinophils/100 WBC (Bld) 1.6 % [facility] Erythrocyte distribution width (RBC) [Ratio] 12.4 % 11.0 - 15.0 % [facility] Hematocrit (Bld) [Volume fraction] 50.9 % High 38.5 - 50.0 % [facility] Hemoglobin (Bld) [Mass/Vol] 17.2 g/dL High 13.2 - 17.1 g/dL [facility] Interpretation and review of laboratory results Abnormal [facility] Lymphocytes (Bld) [#/Vol] 1913 10*3/uL [facility] Lymphocytes/100 WBC (Bld) 26.2 % [facility] MCH (RBC) [Entitic mass] 31.5 pg 27.0 - 33.[address] [facility] MCHC (RBC) [Mass/Vol] 33.8 g/dL 32.0 - 36.0 g/dL [facility] Comment on above: For adults, a slight decrease in the calculated MCHC value (in the range of 30 to 32 g/dL) is most likely not clinically significant; however, it should be interpreted with caution in correlation with other red cell parameters and the patient's clinical condition. MCV (RBC) [Entitic vol] 93.2 fL 80.0 - 100.0 fL [facility] Monocytes (Bld) [#/Vol] 482 10*3/uL [facility] Monocytes/100 WBC (Bld) 6.6 % [facility] Neutrophils (Bld) [#/Vol] 4738 10*3/uL [facility] Neutrophils/100 WBC (Bld) 64.9 % [facility] Platelet mean volume (Bld) [Entitic vol] 10.8 fL 7.5 - 12.5 fL [facility] Platelets (Bld) [#/Vol] 191 10*3/uL [facility] RBC (Bld) [#/Vol] 5.46 10*6/uL [facility] WBC (Bld) [#/Vol] 7.3 10*3/uL [facility] No Panel Informationon 07-20 [facility] Sedimentation rate, automate don 07-20-2025 ESR (Bld) [Velocity] 2 mm/h < OR = 15 [facility] 36on 07-19-2025 36 I called the patient and introduced myself and my role. I explained that I was calling because I received a concern regarding his care that he placed. I asked the patient to give me a little background. He states that he is unhappy with care he has received from all of [facility], not just [facility]o [facility]. 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 He states he is unhappy with his care and feels his mental health is the main focus of the provider and none of his multiple medical concerns or symptoms are being taken into consideration. He feels that Tho did not record all of the visit he had on 06/22/25, as there is no mention of his migraines. He states he was asked to go to the ER but the office would not call ahead. He states his insurance said that the office should call ahead. I explained that we do not do this. He states that Abraham is not taking his symptoms into account and he does not feel he is gettingappropriate care. He states he did go to ER last night and has oral thrush and tinea corpus which is a fungal infection. I explained to him that Dr. Izquierdo did review his multiple encounters and messages and that she feels Tho has provided appropriate care and timely care. I explained that she feels if the patient is unsatisfied with his care at our office maybe there is a new provider/other PCP that he can see. I explained that Dr. Izquierdo has no problem seeing him but he seems unsatisfied with the care in our office therefore she would rather he establish with a PCP he is more comfortable with. The patient stated that is fine and he will be sure to report this to his insurance company. Normal [facility] US Lower extremity arteryon 07-19-2025 Left BLANK 1.25 [facility] Left arm BP 135 mmHg [facility] Left dorsalis pedis BP 153 mmHg [facility] Left posterior tibial 179 mmHg [facility] Left TBI 0.83 [facility] Left toe pressure 118 mmHg [facility] Right BLANK 1.21 [facility] Right arm BP 143 mmHg [facility] Right dorsalis pedis BP 164 mmHg [facility] Right posterior tibial 173 mmHg [facility] Right TBI 0.94 [facility] Right toe pressure 135 mmHg [facility] Right side findings: Resting BLANK is 1.21. This is within the normal range. PVR waveforms appear normal at rest. Left side findings: Resting BLANK is 1.25. This is within the normal range. PVR waveforms appear normal at rest. TBIs within normal range. Exam performed by Jahaira Thompson. Study Details A spectral Doppler analysis ultrasound was performed. Pulsed volume recording (PVR) and photo plethysmography was performed. The exam was performed with the patient in the supine position. Overall the study quality was good. BLANK Right side findings: Normal resting BLANK. Normal resting TBI. Left side findings: Normal resting BLANK. Normal resting TBI. Right PVR waveforms: Normal - 1st digit, 2nd digit, 3rd digit, 4th digit and 5th digit. Normal at rest. Left PVR waveforms: Normal - 1st digit, 2nd digit, 3rd digit, 4th digit and 5th digit. Normal at rest. Exam ordered with exercise however not performed due to pain at rest. CV CPACS US Upper extremity arteryon 07-19-2025 Left 1st Digit BP 154 mmHg [facility] Left arm BP 135 mmHg [facility] Left Prox Radial A BP 179 mmHg [facility] Left Prox Ulnar A BP 172 mmHg [facility] Left WBI 1.25 [facility] Right 1st Digit BP 167 mmHg [facility] Right arm BP 143 mmHg [facility] Right Prox Radial A BP 220 mmHg [facility] Right Prox Ulnar A BP 182 mmHg [facility] Right WBI 1.54 [facility] Right side findings: WBI is 1.54. This is normal. Normal [facility] at rest Left side findings: WBI is 1.25. This is normal. Normal [facility] at rest Exam performed by Jahaira Thompson. Study Details A spectral Doppler analysis ultrasound was performed. Pulsed volume recording (PVR) and photo plethysmography was performed. The exam was performed with the patient in the supine position. Overall the study quality was good. Right Upper Arterial Upper arm PVR waveforms: normal. Lower arm PVR waveforms: normal. 1st digit PVR waveforms: normal. 2nd digit PVR waveforms: normal. 3rd digit PVR waveforms: normal. 4th digit PVR waveforms: normal. 5th digit PVR waveforms: normal. Normal wrist brachial index (WBI). Left Upper Arterial Upper arm PVR waveforms: normal. Lower arm PVR waveforms: normal. 1st digit PVR waveforms: normal. 2nd digit PVR waveforms: normal. 3rd digit PVR waveforms: normal. 4th digit PVR waveforms: normal. 5th digit PVR waveforms: normal. Normal wrist brachial index (WBI). CV [facility] [id number] 07-18-2025 [id number] Pt called into the o ffice wanting to know why his recent issues & msgs have not been addressed. Pt sent multiple MyChart msgs over the weekend to the office indicating he is very upset that he was supposedly not notified about thrush & shayla glabrata diagnoses as well as the errors with his labs not being processed. Informed that that he will need to speak with Dr. Anna's nurse regarding these concerns. Pt expressed that he does not want to speak to the nurse & asks that Dr. Anna called him back to discuss this directly. Informed pt that our office is closed over the weekends so his msgs were not able to be addressed until this morning. Also informed pt that his msgs have been routed to Dr. Anna, however she has pts this morning & may not be able to address these right away. Pt states that he has done his own online research & reports that the Nystatin oral rinse prescribed is not effective at treating his issue & feels he needs to be on oral medication instead. Pt is also asking that all his labs be reordered & additionally have a lab ordered to test for candidiasis in his blood stream. Please advise. Normal [facility] 36on 07-18-2025 36 Leadership approval for discharge from practice. Sent discharge letter via My Chart and certified mail. [facility] 36 Received call from patients mom Codie, she is concerned for her son because she has never seen him so sick and that her son stated we are refusing to treat him. She also states that his skin color is now yellow looking. I explained to Codie that we are not refusing to treat Ce and that all his blood work for any infection has come back negative. 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 Dr Anna did order the test that were not ran from the lab and I sent those to [facility] in [place] per request. Patient is to follow up with his PCP for any other blood work not pertaining to what our office had seen him for. Codie also stating patient told her we are calling him crazy, which I explained no one in our office has stated that. I also told his mom she could ask Ce to see all correspondence from the doctors to get a better understanding to what we have explained to Ce. Ankita verbalized understanding and states she is just worried about her son. I reinforced education of addressing any concerns with his PCP. [facility] 36 Patient calls in ups et that ID will not treat him since he did not complete his vascular appointment or workup. I read Dr Nance note to him and explained that leaving in the middle of a consult, the Dr cannot order the appropriate testing. Dr Ariza stated the PCP can order testing if patient changes his mind. He states that in fact the PCP did order the PVR- upper and lower- and it is scheduled for 07/19/2025. He further denied that anyone tried to stop him and had just became overwhelmed with pain and coldness and had to leave. He feels vascular could have stopped him and asked to come back in. 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 He states that he has done a lot of research online about iodine allergies and feels that he only had a very mild reaction to the last scan. He states he feels he could be premedicated for any CT or angio's. I advised him to reach out to his doctors and let them know what he would like to do next. Normal [facility] CBC W Auto Differential pane l (Bld)on 07-18-2025 Basophils (Bld) [#/Vol] 0.05 10*3/uL [facility] Basophils/100 WBC (Bld) 0.6 % Normal 0.0-2.0 [facility] Comment on above: Performed By: #### 5 7021-8 #### BRIAN SHARMA ([id number]) [facility] ([facility]) [address] [place] [address] Eosinophils (Bld) [#/Vol] 0.17 10*3/uL [facility] Eosinophils/100 WBC (Bld) 2.1 % Normal 0.0-6.0 [facility] Comment on above: Performed By: #### 5 7021-8 #### BRIAN SHARMA ([id number]) [facility] ([facility]) [address] [place] [address] Erythrocyte distribution width (RBC) [Ratio] 12.0 % Normal 11.5-14.5 [facility] Comment on above: Performed By: #### 5 7021-8 #### BRIAN SHARMA ([id number]) [facility] ([facility]) [address] [place] [address] Hematocrit (Bld) [Volume fraction] 47.2 % Normal 41.0-52.0 [facility] Comment on above: Performed By: #### 5 7021-8 #### BRIAN SHARMA ([id number]) [facility] ([facility]) [address] [place] [address] Hemoglobin (Bld) [Mass/Vol] 16.4 g/dL Normal 13.5-17.5 [facility] Comment on above: Performed By: #### 5 7021-8 #### BRIAN SHARMA ([id number]) [facility] ([facility]) [address] [place] [address] Immature granulocytes (Bld) [#/Vol] 0.02 10*3/uL [facility] Immature granulocytes/100 WBC (Bld) 0.2 % Normal 0.0-0.9 [facility] Comment on above: Immature Granulocyte Count (IG) includes promyelocytes, myelocytes and metamyelocytes but does not include bands. Percent differential counts (%) should be interpreted in the context of the absolute cell counts (cells/UL). Result Comment: Patti ture Granulocyte Count (IG) includes promyelocytes, myelocytes and metamyelocytes but does not include bands. Percent differential counts (%) should be interpreted in the context of the absolute cell counts (cells/UL). Performed By: #### 5 7021-8 #### BRIAN SHARMA ([id number]) [facility] ([facility]) [address] [place] [address] Lymphocytes (Bld) [#/Vol] 2.15 10*3/uL [facility] Lymphocytes/100 WBC (Bld) 26.5 % Normal 13.0-44.0 [facility] Comment on above: Performed By: #### 5 7021-8 #### BRIAN SHARMA ([id number]) [facility] ([facility]) [address] [place], [place] [id number] MCH (RBC) [Entitic mass] 31.8 pg Normal 26.0-34.0 [facility] Comment on above: Performed By: #### 5 7021-8 #### BRIAN SHARMA ([id number]) [facility] ([facility]) [address] [place] [address]209 MCHC (RBC) [Mass/Vol] 34.7 g/dL Normal 32.0-36.0 [facility] Comment on above: Performed By: #### 5 7021-8 #### BRIAN SHARMA ([id number]) [facility] ([facility]) [address] [place] [address] 01795 MCV (RBC) [Entitic vol] 92 fL Normal 80-100 [facility] Comment on above: Performed By: #### 5 7021-8 #### BRIAN SHARMA ([id number]) [facility] ([facility]) [address] [place] [address] 25107 Monocytes (Bld) [#/Vol] 0.82 10*3/uL [facility] Monocytes/100 WBC (Bld) 10.1 % Normal 2.0-10.0 [facility] Comment on above: Performed By: #### 5 7021-8 #### BRIAN SHARMA ([id number]) [facility] ([facility]) [address] [place] [address] 40514 Neutrophils (Bld) [#/Vol] 4.89 10*3/uL [facility] Comment on above: Percent differential counts (%) should be interpreted in the context of the absolute cell counts (cells/uL). Neutrophils/100 WBC (Bld) 60.5 % Normal 40.0-80.0 [facility] Comment on above: Performed By: #### 5 7021-8 #### BRIAN SHARMA ([id number]) [facility] ([facility]) [address] [place], [place] [id number] Nucleated RBC/100 WBC (Bld) [Ratio] 0.0 % [facility] Platelets (Bld) [#/Vol] 194 10*3/uL [facility] RBC (Bld) [#/Vol] 5.15 10*6/uL [facility] WBC (Bld) [#/Vol] 8.1 10*3/uL [facility] Basophils (Bld) [#/Vol] 0.05 x10*3/uL Normal 0.00-0.10 [place] Comment on above: Performed By: #### 5 7021-8 #### BRIAN SHARMA ([id number]) [facility] ([facility]) [address] [place] [address] 92129 Eosinophils (Bld) [#/Vol] 0.17 x10*3/uL Normal 0.00-0.70 [place] Comment on above: Performed By: #### 5 7021-8 #### BRIAN SHARMA ([id number]) [facility] ([facility]) [address] [place] [address] 60185 Immature granulocytes (Bld) [#/Vol] 0.02 x10*3/uL Normal 0.00-0.70 [place] Comment on above: Performed By: #### 5 7021-8 #### BRIAN SHARMA ([id number]) [facility] ([facility]) [address] [place] [address] 61869 Lymphocytes (Bld) [#/Vol] 2.15 x10*3/uL Normal 1.20-4.80 [place] Comment on above: Performed By: #### 5 7021-8 #### BRIAN SHARMA ([id number]) [facility] ([facility]) [address] [place] [address] 94988 Monocytes (Bld) [#/Vol] 0.82 x10*3/uL Normal 0.10-1.00 [place] Comment on above: Performed By: #### 5 7021-8 #### BRIAN SHARMA ([id number]) [facility] ([facility]) [address] [place] [address] 95287 Neutrophils (Bld) [#/Vol] 4.89 x10*3/uL Normal 1.20-7.70 [place] Comment on above: Result Comment: Perc ent differential counts (%) should be interpreted in the context of the absolute cell counts (cells/uL). Performed By: #### 5 7021-8 #### BRIAN SHARMA ([id number]) [facility] ([facility]) [address] [place] [address] 41635 Nucleated RBC/100 WBC (Bld) [Ratio] 0.0 /100 WBCs Normal 0.0-0.0 [place] Comment on above: Performed By: #### 5 7021-8 #### BRIAN SHARMA ([id number]) [facility] ([facility]) [address] [place] [address] 28324 Platelets (Bld) [#/Vol] 194 x10*3/uL Normal 150-450 [place] Comment on above: Performed By: #### 5 7021-8 #### BRIAN SHARMA ([id number]) [facility] ([facility]) [address] [place] [address] 39543 RBC (Bld) [#/Vol] 5.15 x10*6/uL Normal 4.50-5.90 [facility] Comment on above: Performed By: #### 5 7021-8 #### BRIAN SHARMA ([id number]) [facility] ([facility]) [address] [place] [address] 97722 WBC (Bld) [#/Vol] 8.1 x10*3/uL Normal 4.4-11.3 [facility] Comment on above: Performed By: #### 5 7021-8 #### BRIAN SHARMA ([id number]) [facility] ([facility]) [address] [place] [address] CRP [Mass/Vol]on 07-18-2025 Interpretation and review of laboratory results Normal [facility] Comprehensive metabolic 2000 panelon 07-18-2025 Albumin BCP dye [Mass/Vol] 4.3 g/dL Normal 3.4-5.0 [facility] Comment on above: Performed By: #### 2 4323-8 #### BRIAN SHARMA ([id number]) [facility] ([facility]) [address] [place] [address] ALP [Catalytic activity/Vol] 43 U/L Normal 33-120 [facility] Comment on above: Performed By: #### 2 4323-8 #### BRIAN SHARMA ([id number]) [facility] ([facility]) [address] [place] [address] ALT With P-5'-P [Catalytic activity/Vol] 9 U/L Low 10-52 [facility] Comment on above: Patients treated wit h Sulfasalazine may generate falsely decreased results for ALT. Result Comment: Vangie ents treated with Sulfasalazine may generate falsely decreased results for ALT. Performed By: #### 2 4323-8 #### BRIAN SHARMA ([id number]) [facility] ([facility]) [address] [place] [address] 46110 Anion gap [Moles/Vol] 11 mmol/L Normal 10-20 [facility] Comment on above: Performed By: #### 2 4323-8 #### BRIAN SHARMA ([id number]) [facility] ([facility]) [address] [place] [address] 47402 AST With P-5'-P [Catalytic activity/Vol] 17 U/L Normal 9-39 [facility] Comment on above: Performed By: #### 2 4323-8 #### BRIAN SHARMA ([id number]) [facility] ([facility]) [facility] [place] [address] Bilirubin [Mass/Vol] 0.4 mg/dL Normal 0.0-1.2 [facility] Comment on above: Performed By: #### 2 4323-8 #### BRIAN SHARMA ([id number]) [facility] ([facility]) [address] [place] [address] 99461 Calcium [Mass/Vol] 9.3 mg/dL Normal 8.6-10.3 [facility] Comment on above: Performed By: #### 2 4323-8 #### BRIAN SHARMA ([id number]) [facility] ([facility]) [address] [place] [address] 03540 Chloride [Moles/Vol] 105 mmol/L Normal 98-107 [facility] Comment on above: Performed By: #### 2 4323-8 #### BRIAN SHARMA ([id number]) [facility] ([facility]) [address] [place] [address] 74693 CO2 [Moles/Vol] 27 mmol/L Normal 21-32 [facility] Comment on above: Performed By: #### 2 4323-8 #### BRIAN SHAMRA ([id number]) [facility] ([facility]) [address] [place] [address] 13502 Creatinine [Mass/Vol] 0.80 mg/dL Normal 0.50-1.30 [facility] Comment on above: Performed By: #### 2 4323-8 #### BRIAN SHARMA ([id number]) [facility] ([facility]) [address] [place] [address] 32173 eGFR - PINF [facility] Comment on above: Calculations of ellis mated GFR are performed using the 2020 CKD-EPI Study Refit equation without the race variable for the IDMS-Traceable creatinine methods. https://jasn.asnjournals.org/content//ASN. 20315 Glucose [Mass/Vol] 98 mg/dL Normal 74-99 [facility] Comment on above: Performed By: #### 2 4323-8 #### BRIAN SHARMA ([id number]) [facility] ([facility]) [address] [place] [address] Interpretation and review of laboratory results Abnormal [facility] Potassium [Moles/Vol] 4.3 mmol/L Normal 3.5-5.3 [facility] Comment on above: Performed By: #### 2 4323-8 #### BRIAN SHARMA ([id number]) [facility] ([facility]) [address] [place], [place] [address] Protein [Mass/Vol] 6.2 g/dL Low 6.4-8.2 [facility] Comment on above: Performed By: #### 2 4323-8 #### BRIAN SHARMA ([id number]) [facility] ([facility]) [address] [place], [place] [address] Sodium [Moles/Vol] 139 mmol/L Normal 136-145 [facility] Comment on above: Performed By: #### 2 4323-8 #### BRIAN SHARMA ([id number]) [facility] ([facility]) [address] [place] [address] Urea nitrogen [Mass/Vol] 9 mg/dL Normal 6-23 [facility] Comment on above: Performed By: #### 2 4323-8 #### BRIAN SHARMA ([id number]) [facility] ([facility]) [address] [place] [address] Glomerular filtration rate >90 Normal >60 [place] Comment on above: Result Comment: Calc ulations of estimated GFR are performed using the 2020 CKD-EPI Study Refit equation without the race variable for the IDMS-Traceable creatinine methods. https://jasn.asnjournals.org/content/early/ASN.30585 93149 Performed By: #### 2 4323-8 #### BRIAN SHARMA ([id number]) [facility] ([facility]) [address] [place] [address] 57693 ECG 12-LEADon 07-18-2025 ECG 12-LEAD Ventricular Rate 64 Atrial Rate 64 P-R Interval 150 QRS Duration 94 Q-T Interval 372 QTC Calculation(Bazett) 383 P [place] 47 R [place] 60 T [place] 55 QRS Count 11 Q Onset 218 P Onset 143 P Offset 187 T Offset 404 QTC Fredericia 380 Diagnosis Poor data quality, interpretation may be adversely affected Normal sinus rhythm Normal ECG No previous ECGs available See ED provider note for full interpretation and clinical correlation Confirmed by Victoria García ([id number]) on 07/22/2025 3:36:50 PM Normal [facility] ESR Westergren method (Bld) [Velocity]on 07-18-2025 ESR (Bld) [Velocity] 2 mm/h Normal 0-15 [facility] Comment on above: Performed By: #### 4 537-7 #### BRIAN SHARMA ([id number]) [facility] ([facility]) [address] [place] [address] Interpretation and review of laboratory results Normal [facility] Laboratory - Chemistry and C hemistry - challengeon 07-18-2025 CRP [Mass/Vol] 0.35 mg/dL Normal <1.00 [facility] Comment on above: Performed By: #### 1 988-5 #### BRIAN SHARMA ([id number]) [facility] ([facility]) [address] [place], [place] [phone] Lactate [Moles/Vol] 0.7 mmol/L Normal 0.4-2.0 [facility] Comment on above: Order Comment: Venip uncture immediately after or during the administration of Metamizole may lead to falsely low results. Testing should be performed immediately prior to Metamizole dosing. Performed By: #### 2 524-7 #### RBIAN SHARMA ([id number]) [facility] ([facility]) [address] [place] [address] 59781 Lactate [Moles/Vol]on 2024 Interpretation and review of laboratory results Normal [facility] Venipuncture immedia tely after or during the administration of Metamizole may lead to falsely low results. Testing should be performed immediately prior to Metamizole dosing. [facility] MR BRAIN W AND WO IV CONTRAS Ton 07-18-2025 MR BRAIN W AND WO IV CONTRAST Interpreted By: Margoth Wisdom, STUDY: MR BRAIN W AND WO IV CONTRAST; 07/18/2025 10:59 pm INDICATION: Signs/Symptoms:AV malformation. Low lying cerebellar tonsils reported on prior outside CT imaging. COMPARISON: None. ACCESSION NUMBER(S): [id number] ORDERING CLINICIAN: CHLOÉ RUGGIERO TECHNIQUE: Axial T2, FLAIR, DWI, gradient echo T2 and sagittal and coronal T1 weighted images of brain were acquired. Post contrast T1 weighted images were acquired after administration of 20 ML Dotarem gadolinium based intravenous contrast. FINDINGS: CSF Spaces: The ventricles, sulci and basal cisterns are within normal limits. Parenchyma: There is slightly low lying cerebellar tonsils extending approximately 3 mm below the foramen magnum. No evidence of obstructive hydrocephalus. There is no diffusion restriction abnormality to suggest acute infarct. There is no focal parenchymal signal abnormality. There is no mass effect or midline shift. No abnormal parenchymal or leptomeningeal enhancement. Paranasal Sinuses and Mastoids: A mucous retention cyst or polyp in the posterior left ethmoid air cells as well as scattered mucosal thickening. Mastoid air cells are patent. IMPRESSION: Slightly low lying cerebellar tonsils object 3 mm without evidence of obstructive hydrocephalus. No abnormal enhancement or the intracranial signal identified MACRO: None Signed by: Margoth Wisdom 07/18/2025 11:12 PM Dictation workstation: [id number] [facility] MR Brain WO and W contrast I Von 07-18-2025 Slightly low lying cerebellar tonsils object 3 mm without evidence of obstructive hydrocephalus. No abnormal enhancement or the intracranial signal identified MACRO: None Signed by: Margoth Wisdom 07/18/2025 11:12 PM Dictation workstation: [id number] Interpreted By: Margoth [place], STUDY: MR BRAIN W AND WO IV CONTRAST; 07/18/2025 10:59 pm INDICATION: Signs/Symptoms:AV malformation. Low lying cerebellar tonsils reported on prior outside CT imaging. COMPARISON: None. ACCESSION NUMBER(S): [id number] ORDERING CLINICIAN: CHLOÉ RUGGIERO TECHNIQUE: Axial T2, FLAIR, DWI, gradient echo T2 and sagittal and coronal T1 weighted images of brain were acquired. Post contrast T1 weighted images were acquired after administration of 20 ML Dotarem gadolinium based intravenous contrast. FINDINGS: CSF Spaces: The ventricles, sulci and basal cisterns are within normal limits. Parenchyma: There is slightly low lying cerebellar tonsils extending approximately 3 mm below the foramen magnum. No evidence of obstructive hydrocephalus. There is no diffusion restriction abnormality to suggest acute infarct. There is no focal parenchymal signal abnormality. There is no mass effect or midline shift. No abnormal parenchymal or leptomeningeal enhancement. Paranasal Sinuses and Mastoids: A mucous retention cyst or polyp in the posterior left ethmoid air cells as well as scattered mucosal thickening. Mastoid air cells are patent. [facility] MMODAL Margoth Wisdom D O - 07/18/2025 Interpreted By: Margoth Wisdom, STUDY: MR BRAIN W AND WO IV CONTRAST; 07/18/2025 10:59 pm INDICATION: Signs/Symptoms:AV malformation. Low lying cerebellar tonsils reported on prior outside CT imaging. COMPARISON: None. ACCESSION NUMBER(S): [id number] ORDERING CLINICIAN: CHLOÉ RUGGIERO TECHNIQUE: Axial T2, FLAIR, DWI, gradient echo T2 and sagittal and coronal T1 weighted images of brain were acquired. Post contrast T1 weighted images were acquired after administration of 20 ML Dotarem gadolinium based intravenous contrast. FINDINGS: CSF Spaces: The ventricles, sulci and basal cisterns are within normal limits. Parenchyma: There is slightly low lying cerebellar tonsils extending approximately 3 mm below the foramen magnum. No evidence of obstructive hydrocephalus. There is no diffusion restriction abnormality to suggest acute infarct. There is no focal parenchymal signal abnormality. There is no mass effect or midline shift. No abnormal parenchymal or leptomeningeal enhancement. Paranasal Sinuses and Mastoids: A mucous retention cyst or polyp in the posterior left ethmoid air cells as well as scattered mucosal thickening. Mastoid air cells are patent. IMPRESSION: Slightly low lying cerebellar tonsils object 3 mm without evidence of obstructive hydrocephalus. No abnormal enhancement or the intracranial signal identified MACRO: None Signed by: Margoth Wisdom 07/18/2025 11:12 PM Dictation workstation: [id number] [facility] Work Phone: Radiology Study observation (narrative) [facility] Work Phone: MR Brain WO and W contrast I VOrdered By: Margoth Wisdom on 07-18-2025 [facility] Work Phone: No Panel Informationon 07-18 [facility] Tropinin I.cardiac panel Hig h sensitivity methodon 07-18-2025 Interpretation and review of laboratory results Normal [facility] Less than 99th perce ntile of normal range cutoff- Female and children under 18 years old <14 ng/L; Male <21 ng/L: Negative Repeat testing should be performed if clinically indicated. Female and children under 18 years old 14-50 ng/L; Male 21-50 ng/L: Consistent with possible cardiac damage and possible increased clinical risk. Serial measurements may help to assess extent of myocardial damage. >50 ng/L: Consistent with cardiac damage, increased clinical risk and myocardial infarction. Serial measurements may help assess extent of myocardial damage. NOTE: Children less than 1 year old may have higher baseline troponin levels and results should be interpreted in conjunction with the overall clinical context. NOTE: Troponin I testing is performed using a different testing methodology at [facility] than at other [facility]. Direct result comparisons should only be made within the same method. [facility] Troponin I, High Sensitivity on 07-18-2025 Tropinin I.cardiac panel High sensitivity method ng/L 0 - 20 ng/L [facility] Troponin I.cardiac panelon 0 07-18-2025 Tropinin I.cardiac panel High sensitivity method <3 Normal 0-20 [place] Comment on above: Order Comment: Less than 99th percentile of normal range cutoff- Female and children under 18 years old <14 ng/L; Male <21 ng/L: Negative Repeat testing should be performed if clinically indicated. Female and children under 18 years old 14-50 ng/L; Male 21-50 ng/L: Consistent with possible cardiac damage and possible increased clinical risk. Serial measurements may help to assess extent of myocardial damage. >50 ng/L: Consistent with cardiac damage, increased clinical risk and myocardial infarction. Serial measurements may help assess extent of myocardial damage. NOTE: Children less than 1 year old may have higher baseline troponin levels and results should be interpreted in conjunction with the overall clinical context. NOTE: Troponin I testing is performed using a different testing methodology at [facility] than at other [facility]. Direct result comparisons should only be made within the same method. Performed By: #### 8 9577-1 #### TORRES ZACHARY ([id number]) [facility] ([facility]) [address] [place] [address] CT HEAD WO IV CONTRASTon CT HEAD WO IV CONTRAST Patient Name: CE VÁSQUEZ : 1985 Exam Date/Time: 07/16/2025 09:20 Procedure: CT HEAD WO IV CONTRAST Ordering Provider: CUELLAR JOSEPH Reason For Exam: Headache, chronic, new features or increased frequency Examination: CT Head Clinical Information: Headache. Comparison: None Findings: Serial axial [address] images were obtained through the skull without intravenous contrast. Coronal, sagittal, and axial series were reviewed. Dose reduction was employed with automated exposure control. The ventricular system and cortical sulci are within normal limits. The lyons-white differentiation is well preserved. 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 No evidence of gross mass, hemorrhage or edema. No areas of mass-effect or infarct are seen. Sinuses appear well pneumatized. Unremarkable calvarium. 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 Otherwise unremarkable noncontrast CT scan of the head. Report Dictated on Electronically Signed By: Anibal Eason MD Electronically Signed Date/Time: 07/16/2025 11:27 AM EDT Pt has head pain especially on the left latter day. Pt has a pressure pain and can feel his vessels at times. Pt states laying in the training and development head also created some pain to his head. It is all over sensitive. 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 Otherwise unremarkable noncontrast CT scan of the head. Report Dictated on Electronically Signed By: Anibal Eason MD Electronically Signed Date/Time: 07/16/2025 11:27 AM EDT [facility] Patient Name: CE BAER : 1985 Exam Date/Time: 07/16/2025 09:20 Procedure: CT HEAD WO IV CONTRAST Ordering Provider: CUELLAR JOSEPH Reason For Exam: Headache, chronic, new features or increased frequency Examination: CT Head Clinical Information: Headache. Comparison: None Findings: Serial axial [address] images were obtained through the skull without intravenous contrast. Coronal, sagittal, and axial series were reviewed. Dose reduction was employed with automated exposure control. The ventricular system and cortical sulci are within normal limits. The lyons-white differentiation is well preserved. 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 No evidence of gross mass, hemorrhage or edema. No areas of mass-effect or infarct are seen. Sinuses appear well pneumatized. Unremarkable calvarium. [facility] Anibal Eason MD - 07/16/2025 Patient Name: CE BAER : 1985 Exam Date/Time: 07/16/2025 09:20 Procedure: CT HEAD WO IV CONTRAST Ordering Provider: CUELLAR JOSEPH Reason For Exam: Headache, chronic, new features or increased frequency Examination: CT Head Clinical Information: Headache. Comparison: None Findings: Serial axial [address] images were obtained through the skull without intravenous contrast. Coronal, sagittal, and axial series were reviewed. Dose reduction was employed with automated exposure control. The ventricular system and cortical sulci are within normal limits. The lyons-white differentiation is well preserved. 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 No evidence of gross mass, hemorrhage or edema. No areas of mass-effect or infarct are seen. Sinuses appear well pneumatized. Unremarkable calvarium. 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 Otherwise unremarkable noncontrast CT scan of the head. Report Dictated on Electronically Signed By: Anibal Eason MD Electronically Signed Date/Time: 07/16/2025 11:27 AM EDT [facility] Study observation (narrative) [facility] CT Head WO contrastOrdered B y: Anibal Eason on 07-16-2025 [facility] Work Phone: 36on 07-15-2025 36 Name of caller: Herb curt Contact phone number: [phone] Relationship to Patient: Self Provider: Practice: [facility] Chief Complaint/Reason for Call: Pt is claiming that he is wanting orders for CT Scan of Chest and US PVR Testing he currently has a CT of head scheduled but was told that when he found out he dont need a prior auth then he could schedule sooner and would like to have the orders placed so he could try to schedule for the same day please advise Best time of day caller can be reached: any Patient advised that office/PCP has 24-48 business hours to return their call: No Normal [facility] 36 Name of caller: Héctor barney Contact phone number: [phone] or [phone] Relationship to Patient: [facility] Provider: Dr. Izquierdo Practice: [facility] Chief Complaint/Reason for Call: Jermaine called to inform office that a PA is not required for CT scan. Best time of day caller can be reached: any Patient advised that office/PCP has 24-48 business hours to return their call: N/A Normal [facility] 36 Name of caller: Herb curt Contact phone number: [phone] Relationship to Patient: patient Provider: Alisa Practice: [facility] Chief Complaint/Reason for Call: Patient reported that because his order is not STAT the soonest he can be scheduled for the CT head is 08/02/25. Patient is concerned about this being so far out. Also, patient was wondering if the PVR testing included his ankle, toe, wrist and finger. Please call patient back. Best time of day caller can be reached: Any Patient advised that office/PCP has 24-48 business hours to return their call: No [facility] 36on 07-14-2025 36 Please let Mr Keyur navarrete now that he has a thrush (yeast) infection with Shalya glabrata and I recommend using Nystatin swish and swallow 4 x a day as directed, for 10 d - I want him to please call me after end of therapy to see if his thrush is improved- script sent ot his pharmacy [facility] 36 S: Patient is calling the [facility] with headaches B: Symptom onset: chronic, since May 2025 A: Patient complains of: Has had an unusual migraine for months now, endorses he'd notified Alisa SOCIAL SCIENCE RESEARCH ASSISTANT at 06/22/25 SOCIAL SCIENCE RESEARCH ASSISTANT visit, has previously had suspected migraines that would go a way after taking sumatriptan (a friend's medication, last time taken 1 yr ago), he can feel temples throbbing He states was also told by Dr. Ariza (vascular surgeon) that PCP needs to order vascular testing as he thinks symptoms are related to lymphedema, patient is not pleased with this and wants vascular testing ordered Patient denies: one sided weakness or numbness Home care tried/alleviating factors: Tylenol ES not helpful R: Tangential in conversation, needed frequent redirecting. Advised a HP TE would be sent to provider for review and recommendations. Home care advice reviewed with the patient per protocol: advised to never take another's prescription medications along with rationale, cold pack Patient verbalizes understanding. Advised patient to call back with new or worsening symptoms. Reason for Disposition SEVERE headache (e.g., excruciating) and has had severe headaches before Protocols used: [id number] S: Patient called [facility] regarding Symptoms/Concerns: unrelenting migraine for months - can feel his temples throb B: Per nurse triage ticket created by RACHEL A: Patient disconnected prior to speaking with nurse. No answer upon return call to patient x 1 R: Left voice message for patient to call the office if assistance is still needed. Reason for Disposition Message left on identified voicemail Protocols used: No Contact or Duplicate Contact [id number] [facility] 3607-13-2025 36 Name of caller: Herb elias Contact phone number: [phone] Relationship to Patient: patient Provider: Dr. Izquierdo Practice: [facility] Chief Complaint/Reason for Call: Ce called in regarding his urethra urology referral. He is requesting that the referral be faxed to the [facility], Dermatology at [phone]. He stated they need pathology results, labs & clinical notes included in the fax with the referral. Please advise, thank you! Best time of day caller can be reached: any Patient advised that office/PCP has 24-48 business hours to return their call: No [facility] 36 Tho, Patient has sent photos of his feet. Thank you [place] [id number] 36 Patient has attached lab results, please review. Thank you [place] [id number] 36 Name of caller: Herb elias Contact phone number: [phone] Relationship to Patient: patient Provider: Dr. Izquierdo Practice: [facility] Chief Complaint/Reason for Call: Patient requesting referrals for Vascular Surgery and Gatroenterology to be faxed to [facility]. Patient states will send fax numbers through [employer]. Please advise. Best time of day caller can be reached: any Patient advised that office/PCP has 24-48 business hours to return their call: Yes [facility] Office Visiton 07-11-2025 Follow-up visit [id number] Ce Baer 1985 M Date Provider Department [place] 07/11/2025 [id number] ARIZA [facility] JUAN CARLOS None Family History Problem Relation Age of Onset Psoriasis Mother Hypertension Mother Arthritis Mother Parkinson's Disease Father Alzheimer's disease Father Epilepsy Father Diabetes type II Father Family Status - Relation Status Age at Mother Alive Father Alive Level of Service:75518 [place] OFFICE/OUTPATIENT NEW MODERATE MDM 45 MINUTES Reason for Visit and Comments: New Patient [542] - (ref Scott Cuellar SOCIAL SCIENCE RESEARCH ASSISTANT) SOCIAL SCIENCE RESEARCH ASSISTANT eval for mutliple complaints- poss Buerger's dz, no testing (requested ) [facility] 3607-08-2025 36 . [facility] 36 Name of caller: Herb Baer Relationship to patient: patient Contact phone number: [phone] Speciality referral requested for: Vascular specialist Diagnosis or reason for referral: Patient stated that they saw infectious disease and was told that issue with toes and feet is circulation. 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 Patient stated that hands are red, with discoloration, numbness, and tingling of legs, arms, feet, and hands. Patient stated that they have had what feels like a bad migraine for months, and toes on both feet are not swollen and red. Patient requesting this referral as soon as possible. Name of specialist: Any Name of group/practice: Any vascular Patient verified insurance covers referral: Unknown Patient insurance: [facility] Medicare/Medicaid Has patient seen this specialist in the past: No Estimated time/date patient last saw the specialist: NA [facility] 36on 07-07-2025 36 Please let Mr Keyur navarrete now that I spent at least 30 min this morning reviewing mycotoxins and his reports. It appears that mycotoxins can be inhaled or ingested and may be toxic to gut/lungs but not months after the exposure is removed. Mycotoxins are all over the environment and we all may have small levels of them, so the reports I saw on your testing were not seriously out of the normal range. I don't think mycotoxins have anything to do of why you are feeling so unwell. The testicular issues should be addressed by urology as I discussed that a cyst was found and as well as some vascular changes they should address. I also have suspicions that the foot issues may be circulation related to your smoking but not infection as inflammatory marker was normal, and no evidence of lupus or rheumatoid by initial blood tests (a larger panel could be ordered by your PCP but it is not my area of expertise) I am still awaiting the foot xray to confirm no bone infection that could be recurring. [facility] 36on 07-05-2025 36 Call from Soraya in lab, an error occurred with the lab yesterday and CBC, ESR and T Cell profile chandler to be redrawn [facility] BLOOD CULTUREon 07-04-2025 Bacteria identified Cx Nom (Bld) BLOOD CULTURE Reference No growth at 5 days ORDER COMMENTS: Blood Collection Site: Right Arm [ S = SUSCEPTIBLE R = RESISTANT I = INTERMEDIATE S-DD = Susceptible-dose dependent NS = Non-susceptible NO = No Interpretation ] Normal [facility] Comment on above: Performed By: #### L [id number] ####Equipment Service Associate: ALEKSANDRA CHRISTIANSON ([id number])[facility] ([facility])[address] [place] [address] Bacteria identified Cx Nom (Bld) BLOOD CULTURE Reference No growth at 5 days ORDER COMMENTS: x2 Blood Collection Site: Left Arm [ S = SUSCEPTIBLE R = RESISTANT I = INTERMEDIATE S-DD = Susceptible-dose dependent NS = Non-susceptible NO = No Interpretation ] Normal [facility] Comment on above: Performed By: #### L [id number] ####Equipment Service Associate: ALEKSANDRA CHRISTIANSON ([id number])[facility] ([facility])[address] [place] [address] [place] C-REACTIVE PROTEINon 025 CRP [Mass/Vol] 3.3 mg/L Normal <5.0 [facility] Comment on above: Performed By: #### L [id number], LAB68 ####Equipment Service Associate: ALEKSANDRA CHRISTIANSON ([id number])[facility] ([facility])[address] [place] [address] [place] CRP [Mass/Vol]on 07-04-2025 Interpretation and review of laboratory results Normal [facility] ERYTHROPOIETINon 07-04-2025 ERYTHROPOIETIN 10.3 mIU/mL Normal 2.6-18.5 [facility] Comment on above: Result Comment: Test Performed by Suha Guerra, [facility], [address] [place] [address] Panchito Nolan M.D., Ph.D., Director of Laboratories , [place] [id number] Performed By: #### L [id number] #### [facility] ([facility]) [address] [place] [address] [place] FERRITINon 07-04-2025 Ferritin [Mass/Vol] 119 ng/mL Normal 22-275 [facility] Comment on above: Result Comment: ORDE R COMMENTS: Ferritin levels below 10 ng/mL have been reported as indicative of iron deficiency anemia. Performed By: #### L AB149, LAB68 ####Equipment Service Associate: ALEKSANDRA CHRISTIANSON ([id number])[facility])[address] [place] [address] FUNGAL CULTUREon 07-04-2025 FUNGAL CULTURE FUNGAL CULTURE (A) Reference SHAYLA GLABRATA Rare Shayla glabrata (A) This is an edited result. Previous organism was Yeast on 07/11/2025 at 1254 EDT. [ S = SUSCEPTIBLE R = RESISTANT I = INTERMEDIATE S-DD = Susceptible-dose dependent NS = Non-susceptible NO = No Interpretation ] Normal [facility] Comment on above: Performed By: #### L [id number] #### Equipment Service Associate: ALEKSANDRA CHRISTIANSON ([id number]) [facility] ([facility]) [address] [place] [address] Ferritin [Mass/Vol]on 2024 Interpretation and review of laboratory results Normal [facility] Ferritin levels belo w 10 ng/mL have been reported as indicative of iron deficiency anemia. [facility] HEMOCHROMATOSIS MUTATIONon 0 07-04-2025 C28Y HEMOCHROMATOSIS MUT Negative Normal [facility] Comment on above: Performed By: #### L [id number] ####[facility] ([facility])[address] H63D HEMOCHROMATOSIS MUT heterozygous Normal [facility] Comment on above: Performed By: #### L [id number] ####[facility] ([facility])[address] HFE PCR SPECIMEN whole blood Normal [facility] Comment on above: Performed By: #### L [id number] ####[facility] ([facility])[address] INTERPRETATION see note Normal [facility] Comment on above: Result Comment: ORDE R COMMENTS: See attached report. Resulted on behalf of [facility]. Performed By: #### L [id number] ####[facility] ([facility])[address] S65C HEMOCHROMATOSIS MUT Negative Normal [facility] Comment on above: Performed By: #### L [id number] ####[facility] ([facility])[address] [place] [id number] LYME ANTIBODY SCREEN WITH RE FLEX TO IMMUNOBLOTon 07-04-2025 LYME ANTIBODY SCREEN Non-Reactive Normal NON REACTIVE [facility] Comment on above: Result Comment: [facility] CDC recommendations for the serologic diagnosis of Lyme disease are to screen with a polyvalent immunoassay and confirm equivocal and positive results with Immunoblot for IgM and IgG. This screening assay was negative; confirmatory testing is not indicated and therefore not sent. A negative result does not exclude the possibility of infection with Borrelia burgdorferi. Performed By: #### L [id number] ####Equipment Service Associate: ALEKSANDRA CHRISTIANSON ([id number])[facility] ([facility])[address] [place] [address] Laboratory - Chemistry and C hemistry - challengeon 07-04-2025 Ferritin [Mass/Vol] 119 ng/mL 22 - 275 ng/mL [facility] CRP [Mass/Vol] 3.3 mg/L NINF - 5.0 mg/L [facility] Office Visiton 07-04-2025 Follow-up visit [id number] Ce Baer 1985 M Date Provider Department Center 07/04/2025 56-SIGNS, HARDIK [facility] ID None Family History Problem Relation Age of Onset Psoriasis Mother Hypertension Mother Arthritis Mother Parkinson's Disease Father Alzheimer's disease Father Epilepsy Father Diabetes type II Father Family Status - Relation Status Age at Mother Alive Father Alive Level of Service:22562 [place] OFFICE/OUTPATIENT NEW HIGH MDM 60 MINUTES Reason for Visit and Comments: New Patient [542] - Cellulitis L foot Normal [facility] Progress Noteon 07-04-[address] [facility] Infectious Diseases Attending Outpatient Consult Note Reason for Consult: recurrent L foot cellulitis Requesting Physician: Kam Cuellar APRN-PORTFOLIO SPECIALIST Chief Complaint Patient presents with New Patient Cellulitis L foot HISTORY OF PRESENT ILLNESS The patient is a 40 y.o. male with presenting with a history of recurrent L foot infections recently. Mr Ce Baer presents with a plethora of issues that he feels stem from toxin exposure to mold in his prior apartment. He has had testing done on his apartment with results showing high levels of several fungi tested, and has had his urine tested by [facility] for toxins where were positive for several (see reports in Media section). Though I admit to not being familiar with those toxin assays, I do understand that the environmental tests confirmed the presents of molds in higher than safe levels. I did try to focus on the foot which he presented with concerns for recurrent infection. He had been to several different ER's and he feels that this was not properly addressed. The first time he states that they told him he had athlete's foot infection but after taking the prescribed creams, he developed fever, sweats, and rigors, with swelling of foot bryanna in 4th /5th web spaces and red streaks up his left lateral leg. 03/17/25 seen [facility] ([place], [place]) ER for a pain between L 4th/th toes He returned to the ED where report states he had I and D of abscess, but he states that the doctor came in and pressed hard on the tissue, pus squirted out, no cultures were taken and the cavity not completely drained. He was given Keflex and bactrim. He took meds as directed, but returned to the ED w/c/o Sob and atypical CP and discharged after he had normal CXR and EKG. Then had total body erythema/hives and skin desquamation consistent with sulfa allergy He states that the foot has drained pus on a few occasions since then and becomes intermittently swollen and red in that area but then resolves. Pictures he shows me of the foot show discoloration and swelling. Then went to [facility] ED on 03/19/25 with CP but left w/o evaluation. That is when his parents took him to [place] for evaluation and was diagnosed with pneumonia He went to [facility] ED on 06/15/25 for c/o rectal bleeding and blood in urine. He told ER physician that he had seen "environmental doctors" who told him that he had multiple toxins in his body and antibiotic resistant infections in his lungs and skin. He left the ED as he c/o that he did not like the doctor's tone of voice and felt that he was not having symptoms addressed. He has been seeing Urology for bilateral testicular pain, bryanna R sided and was not aware of 06/29/25 scrotal US findings IMPRESSION: 1. Unremarkable ultrasound of the testicles with small bilateral hydroceles. 2. Small bilateral varicoceles with what appears to be some small areas of thrombus. 3. Right epididymal cysts, largest 2.6 cm (unchanged in size since outside exam of 03/12/2025). Electronically Signed By: Erickson Lui MD 06/30/2025 Other issues are new severe neck pain radiating into back of his head, with neck an lower back pain as well as polyarthralgia's including elbows and knees, myalgias and exhaustion all the time. He states that he is not taking any medication now, bryanna not his meds for Bipolar disorder and states that these are not his typical symptoms of his mood disorder. Most concerning are the drenching night sweats he states he is having in the past month or more. He is not taking his temps but feels warm and like his skin is burning on occasion. He has had neuropathic feelings of intermittent numbness in the L arm, but has hyper hydrosis only in the R axilla (verified by exam). He denies any vision symptoms suggestive of MS, or asymmetric weakness to suggest transverse myelitis, and has no family hx of hemochromatosis or blood disorders such as Polycythemia Rubra Vera (note Hb is 17 but he is a smoker??) States he had a new onset of convulsions that this was following his dog being diagnosed with new onset generalized seizures. This added to concerns for environmental toxins that precipitated mold and toxin testing. States this was not investigated in ED at the time and he was discharged without further investigation. He is now living with his parents after being told he had to leave his apartment for fumigation, but had an eviction notice the same day he moved out. Appeal of issue placed but he was told to seek Psychiatric care, per patient. Foot now does not reflect active signs of infection. (Picture below) Prior hx of alcohol abuse and in recovery since 2018. Has not been sexually active in 10 yrs per patient and prior HIV testing was negative but willing to get retested due to immune function concerns, and has no hx of syphilis. Extensive chart review shows records in (more content not included)... Normal [facility] US SCROTUMon 06-30-2025 US SCROTUM Patient Name: [facility] : 1985 [id number] Exam Date/Time: 06/29/2025 13:53 Procedure: US SCROTUM Ordering Provider: CUELLAR JOSEPH Reason For Exam: TESTICULAR PAIN CLINICAL INFORMATION: History of abnormal outside ultrasound 03/12/2025 with pain in both testicles, intermittent A sonogram of the scrotum was performed. The right testicle measures 3.8 x 3.4 x 2.1 cm. The left testicle measures 3.8 x 3.2 x 1.8 cm. No intratesticular masses are noted. No epididymal solid masses are noted with multiple cysts right epididymis. Small bilateral fluid collections about the testicles are noted. Blood flow is present to both testicles by 3D color and spectral Doppler analysis. IMPRESSION: 1. Unremarkable ultrasound of the testicles with small bilateral hydroceles. 2. Small bilateral varicoceles with what appears to be some small areas of thrombus. 3. Right epididymal cysts, largest 2.6 cm (unchanged in size since outside exam of 03/12/2025). Report Dictated on Electronically Signed By: Erickson Lui MD Electronically Signed Date/Time: 06/30/2025 4:[address] [facility] B. burgdorferi IgG+IgM Qn (S )on 06-28-2025 B. burgdorferi IgG+IgM IA Ql (S) <=0.90 [facility] Comment on above: Index Interpretation <= 0.90 Negative 0.91-1.09 Equivocal >= 1.10 Positive This assay measures Lyme disease (Borrelia burgdorferi) IgG plus IgM antibodies; it does not distinguish results that are both IgG and IgM positive from results that are either IgG or IgM positive. As recommended by the Centers for Disease Control and Prevention (CDC), all samples with positive or equivocal results in this screening assay will be tested using separate supplemental Lyme IgG and IgM immunoassays. Positive or equivocal screening assay results should not be interpreted as truly positive until verified as such using the supplemental assays. Screening and/or supplemental tests for Lyme disease antibodies may be falsely negative in early stages of Lyme disease, including the period when erythema migrans is apparent. These assays may be falsely positive in patients with other spirochetal disease (e.g. syphilis) or infectious mononucleosis. The Code of [place], Article 1 of Chapter 5 of Title 32.1, section 32.1-137.06, requires that the following language must be included on every Lyme disease test report issued by a [place] laboratory: Patients undergoing a Lyme disease test should be aware that Lyme disease tests vary and may produce results that are inaccurate. This means a patient may not be able to rely on a positive or negative result. Health care providers are encouraged to discuss Lyme disease test results with the patient for whom the test was ordered. Lipaseon 06-28-2025 Lipase [Catalytic activity/Vol] 39 U/L 7 - 60 U/L [facility] Lipid 1996 panelon Cholesterol [Mass/Vol] 123 mg/dL NINF - 200 mg/dL [facility] Cholesterol in HDL [Mass/Vol] 38 mg/dL Low > OR = 40 [facility] Cholesterol in LDL [Mass/Vol] 70 mg/dL mg/dL (calc) [facility] Comment on above: Reference range: <10 0 Desirable range <100 mg/dL for primary prevention; <70 mg/dL for patients with CHD or diabetic patients with > or = 2 CHD risk factors. LDL-C is now calculated using the To-Roxann calculation, which is a validated novel method providing better accuracy than the Friedewald equation in the estimation of LDL-C. To SS et al. JOVITA. 2013;310(19): 8075-6336 (http://education.MENA360.[employer] Apps/faq/FCV162) Cholesterol non HDL [Mass/Vol] 85 mg/dL [facility] Comment on above: For patients with di abetes plus 1 major ASCVD risk factor, treating to a non-HDL-C goal of <100 mg/dL (LDL-C of <70 mg/dL) is considered a therapeutic option. Cholesterol.total/Chol esterol in HDL [Mass ratio] 3.2 {ratio} [facility] Interpretation and review of laboratory results Abnormal [facility] Triglyceride [Mass/Vol] 66 mg/dL NINF - 150 mg/dL [facility] No Panel Informationon 06-28 [facility] Progress Noteon 06-28-2025 Progress Note Patient still experiencing symptoms with oral intake. Will trial protonix while awaiting GI appointment. Normal [facility] Rheumatoid factoron 06-28-20 25 Rheumatoid factor Qn [IU]/mL [facility] TSHon 06-28-2025 TSH Qn 0.84 m[IU]/L [facility] 37on 06-27-2025 37 Headache in the pelv is (book) Normal [facility] Office Visiton 06-27-2025 Follow-up visit [id number] Ce Baer 1985 M Date Provider Department Center 06/27/2025 [id number] SANTAMARIA ACH URO None Family History Problem Relation Age of Onset Psoriasis Mother Hypertension Mother Arthritis Mother Parkinson's Disease Father Alzheimer's disease Father Epilepsy Father Diabetes type II Father Family Status - Relation Status Age at Mother Alive Father Alive Level of Service:18130 [place] OFFICE/OUTPATIENT NEW MODERATE MDM 45 MINUTES Reason for Visit and Comments: New Patient [542] Testicle Pain [260] - Unable to give a urine sample at this time Normal [facility] Progress Noteon 06-27-2025 Progress Note Scott Santamaria MD 06/27/2025 at 11:56 AM UROLOGY INITIAL OFFICE VISIT PATIENT NAME: Ce Baer DATE OF : 1985 TODAY'S DATE: 06/27/2025 Chief Complaint: Chief Complaint Patient presents with New Patient Testicle Pain Unable to give a urine sample at this time HISTORY OF PRESENT ILLNESS: Mr. Baer is a 40 y.o. male who presents with right testicular pain He was seen previously by Dr. Wood for abdominal and groin pain, incomplete emptying, urinary frequency, sent bactrim CT 06/24/25 reviewed - no renal masses, no urolithiasis, bladder normal appearing decompressed Right testicular pain in December - epididymitis, given antibiotics Didn't think the swelling resolved 03/2025 - MERE at [place] showed cysts in testicles, not epididymitis Has radiating, shooting pains in the groin Throbbing pain in the testicle Pain radiating towards butt and then abdomen No left testicular pain Bowel movements - has serious constipation, bowel movements a few times per month Saw GI 5-6 years ago - colonoscopy and EGD, found polyps, didn't have follow up colonoscopy Colonoscopy scheduled in August ([facility] in [place]) with GI Abdomen will bloat Not sexually active, pain worse days after ejaculating with masturbation No hematuria, no dysuria Tip of the penis will have pain as well No occupation for the past few years Usually very active Tries natural stuff for constipation Tries not to take stool softeners REVIEW OF SYSTEMS: Review of Systems Gastrointestinal: Positive for constipation. Genitourinary: Positive for penile pain, scrotal swelling and testicular pain. Negative for difficulty urinating, dysuria, hematuria and penile swelling. Past Medical History: Medical History[1] PastSurgical History: Surgical History[2] CurrentMedications: Current Medications[3] Allergies: Allergies[4] Social History: Social History[5] Family History: Family History[6] PHYSICAL EXAM: VITALS: BP 137/78 (BP Location: Left arm, Patient Position: Sitting, BP Cuff Size: Large adult) Pulse 92 Ht 5' 9" (1.753 m) Wt 219 lb (99.3 kg) BMI 32.34 kg/m? Physical Exam Constitutional: General: He is not in acute distress. Appearance: He is not ill-appearing. HENT: Head: Normocephalic and atraumatic. Right Ear: External ear normal. Left Ear: External ear normal. Nose: Nose normal. Eyes: Extraocular Movements: Extraocular movements intact. Pulmonary: Effort: Pulmonary effort is normal. No respiratory distress. Genitourinary: Comments: Bilateral testicles descended without masses Right sided epididymal cyst, ttp to the right testicle, no ttp to the left testicle JAZIEL - very tense pelvic floor, tenderness to the right levator muscles, difficult to palpate prostate Neurological: Mental Status: He is alert. DATA: No results found for: PSA No results found for: TESTOSTERONE Lab Results Component Value Date WBC 8.8 06/15/2025 HGB 17.1 06/15/2025 HCT 47.1 06/15/2025 MCV 88.7 06/15/2025 PLT 224 06/15/2025 Lab Results Component Value Date GLUCOSE 93 06/15/2025 CALCIUM 8.8 06/15/2025 NA 138 06/15/2025 K 4.2 06/15/2025 CO2 21 (L) 06/15/2025 CL 106 06/15/2025 BUN 12 06/15/2025 CREATININE 0.80 06/15/2025 No components found for: LABURIN @LASTPROCPOC@ Radiology Review: Impression/Plan Ce was seen today for new patient and testicle pain. Diagnoses and all orders for this visit: Right testicular pain (Primary) Pelvic floor dysfunction - Ambulatory referral to Physical Therapy; Future Slow transit constipation Other orders - meloxicam (Mobic) 15 MG tablet; Take 1 tablet (15 mg) by mouth daily. Take with food or milk. Do not take additional NSAIDs with this medication Right testicular pain has been present for the past 6 months Didn't improve with antibiotic course previously Will trial mobic x1 month Schedule office right spermatic cord block Pain more localized to the right testicle and not right epididymis with the cyst, but would consider right epididymal cyst excision in the future if no improvement with cord block Pelvic floor dysfunction - has pain in perineum radiating to groins and abdomen, very tender on JAZIEL especially on the right side, pain in tip of penis at times Referral to PFPT placed Constipation - doesn't like to take stool softeners, prefers natural ways to prevent constipation Bowel movements a few times per month Constipation likely a big source of his abdominal pain Colonoscopy scheduled in August with GI Follow up in about 1 month (around 07/28/2025) for right testicular pain (cord block), pelvic floor dysfunction. Scott Santamaria MD 06/27/25 11:56 AM [1] Past Medical History: Diagnosis Date Fungal infection Hx of epididymitis right Staphylococcosis [2] History reviewed. No pertinent surgical history. [3] Current Outpatient Medications: doxycycline (more content not included)... Normal [facility] 36on 06-24-2025 36 Your patient has bee n scheduled for their ct on 07/08/25 at [place]. If testing requires an insurance authorization, the authorization must be in place 48 hours prior to the scheduled test or testing will be cancelled. Thank you, Central Scheduling [facility] CT ABDOMEN PELVIS WO IV CONT Heidi 06-24-2025 CT ABDOMEN PELVIS WO IV CONTRAST [facility] 1985 [id number] Exam Date/Time: 06/24/2025 14:12 Procedure: CT ABDOMEN PELVIS WO IV CONTRAST Ordering Provider: CUELLAR JOSEPH Reason For Exam: Abdominal pain, acute, nonlocalized; Flank pain, kidney stone suspected CT ABDOMEN AND PELVIS WITHOUT CONTRAST CLINICAL INDICATION: Abdominal pain, acute, nonlocalized; Flank pain, kidney stone suspected Serial axial CT images of the abdomen and pelvis were acquired without intravenous contrast. Oral contrast was not given for this study. Dose reduction was employed with automated exposure control. COMPARISON: None FINDINGS: There is no hydronephrosis, hydroureter, or perinephric stranding bilaterally. No renal or ureteral stones are identified. The urinary bladder appears grossly normal. The prostate does not appear enlarged. The liver, gallbladder, spleen, pancreas, and adrenal glands are grossly unremarkable in appearance on this noncontrast examination. No retroperitoneal or pelvic lymphadenopathy is seen. The abdominal aorta is normal in caliber. The large and small bowel is unremarkable in appearance, without evidence of thickening or dilatation. No free fluid is seen within the abdomen or pelvis. There is no free air under the diaphragm. The visualized portion of the lung bases are clear. No lytic or blastic lesions are seen on the bone windows. There are bilateral L5 pars interarticularis defects with grade 1-2 anterolisthesis of L5 on S1. IMPRESSION: No renal or ureteral stones are seen. No hydronephrosis, hydroureter, or perinephric stranding is seen bilaterally. Bilateral L5 pars interarticularis defects are present with grade 1-2 anterolisthesis of L5 on S1. Report Dictated on Electronically Signed By: Alexander Quiñonez MD Electronically Signed Date/Time: 06/24/2025 2:52 PM EDT Bilateral and pelvis pain x 1 week Gross to micro hematuria Sts blood in his urine lab results No surgery Normal [facility] CT Abdomen and Pelvis WO con traston 06-24-2025 No renal or ureteral stones are seen. No hydronephrosis, hydroureter, or perinephric stranding is seen bilaterally. Bilateral L5 pars interarticularis defects are present with grade 1-2 anterolisthesis of L5 on S1. Report Dictated on Electronically Signed By: Alexander Quiñonez MD Electronically Signed Date/Time: 06/24/2025 2:52 PM EDT [facility] Patient Name: CE BAER : 1985 Exam Date/Time: 06/24/2025 14:12 Procedure: CT ABDOMEN PELVIS WO IV CONTRAST Ordering Provider: CUELLAR JOSEPH Reason For Exam: Abdominal pain, acute, nonlocalized; Flank pain, kidney stone suspected CT ABDOMEN AND PELVIS WITHOUT CONTRAST CLINICAL INDICATION: Abdominal pain, acute, nonlocalized; Flank pain, kidney stone suspected Serial axial CT images of the abdomen and pelvis were acquired without intravenous contrast. Oral contrast was not given for this study. Dose reduction was employed with automated exposure control. COMPARISON: None FINDINGS: There is no hydronephrosis, hydroureter, or perinephric stranding bilaterally. No renal or ureteral stones are identified. The urinary bladder appears grossly normal. The prostate does not appear enlarged. The liver, gallbladder, spleen, pancreas, and adrenal glands are grossly unremarkable in appearance on this noncontrast examination. No retroperitoneal or pelvic lymphadenopathy is seen. The abdominal aorta is normal in caliber. The large and small bowel is unremarkable in appearance, without evidence of thickening or dilatation. No free fluid is seen within the abdomen or pelvis. There is no free air under the diaphragm. The visualized portion of the lung bases are clear. No lytic or blastic lesions are seen on the bone windows. There are bilateral L5 pars interarticularis defects with grade 1-2 anterolisthesis of L5 on S1. [facility] Alexander Quiñonez MD - 06/24/2025 Patient Name: CE BAER : 1985 [facility]#: [id number] Exam Date/Time: 06/24/2025 14:12 Procedure: CT ABDOMEN PELVIS WO IV CONTRAST Ordering Provider: CUELLAR JOSEPH Reason For Exam: Abdominal pain, acute, nonlocalized; Flank pain, kidney stone suspected CT ABDOMEN AND PELVIS WITHOUT CONTRAST CLINICAL INDICATION: Abdominal pain, acute, nonlocalized; Flank pain, kidney stone suspected Serial axial CT images of the abdomen and pelvis were acquired without intravenous contrast. Oral contrast was not given for this study. Dose reduction was employed with automated exposure control. COMPARISON: None FINDINGS: There is no hydronephrosis, hydroureter, or perinephric stranding bilaterally. No renal or ureteral stones are identified. The urinary bladder appears grossly normal. The prostate does not appear enlarged. The liver, gallbladder, spleen, pancreas, and adrenal glands are grossly unremarkable in appearance on this noncontrast examination. No retroperitoneal or pelvic lymphadenopathy is seen. The abdominal aorta is normal in caliber. The large and small bowel is unremarkable in appearance, without evidence of thickening or dilatation. No free fluid is seen within the abdomen or pelvis. There is no free air under the diaphragm. The visualized portion of the lung bases are clear. No lytic or blastic lesions are seen on the bone windows. There are bilateral L5 pars interarticularis defects with grade 1-2 anterolisthesis of L5 on S1. IMPRESSION: No renal or ureteral stones are seen. No hydronephrosis, hydroureter, or perinephric stranding is seen bilaterally. Bilateral L5 pars interarticularis defects are present with grade 1-2 anterolisthesis of L5 on S1. Report Dictated on Electronically Signed By: Alexander Quiñonez MD Electronically Signed Date/Time: 06/24/2025 2:[address] [facility] Radiology Study observation (narrative) [facility] CT Abdomen and Pelvis WO con trastOrdered By: Alexander Quiñonez on 06-24-2025 [facility] 29on 06-22-2025 29 Addended by: SCOTT CUELLAR on: 06/28/2025 02:29 PM Modules accepted: Level of Service Normal [facility] Office Visiton 06-22-2025 Follow-up visit [id number] Ce Baer 1985 M Date Provider Department Center 06/22/2025 [id number] CUELLAR [facility] Family History Problem Relation Age of Onset Psoriasis Mother Hypertension Mother Arthritis Mother Parkinson's Disease Father Alzheimer's disease Father Epilepsy Father Diabetes type II Father Family Status - Relation Status Age at Mother Alive Father Alive Level of Service:11199 [place] OFFICE/OUTPATIENT ESTABLISHED MOD MDM 30 MIN Reason for Visit and Comments: New Patient [542] Establish Care [42] Normal [facility] Progress Noteon 06-22-2025 Progress Note . Visit type: New Patient Reason for Visit: New Patient and Establish Care Assessment and Plan 1. Encounter for routine history and physical exam for male Comments: Labs ordered and pending 2. Bipolar 1 disorder (HCC) Comments: Refer to psych Patient states stable however unstable aspect see ER visit No HI or SI Orders: - [facility] [place] 3. Primary hypertension Comments: Labs ordered and pending Stable 4. 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 Arthralgia, unspecified joint Comments: Stable Continue OTC medication such as Advil Continue at home conservative therapies Orders: - Rheumatoid factor 6. Acute gastroenteritis Comments: Stable Intermittent in nature Labs ordered and pending Negative acute assessment Orders: - Lipase 7. Pain in both testicles Comments: Intermittent in nature History of kidney stones Ultrasound ordered Orders: - [facility] [place] Urology - US scrotum 8. Lipid screening Comments: Labs ordered and pending Orders: - Lipid panel 9. Other microscopic hematuria Comments: Found during UA in ED CT ordered Plan of care to be amended at that time of results Refer to GI Orders: - CT abdomen pelvis wo IV contrast Patient did not wish to address COVID MMR varicella hepatitis screenings and vaccinations. Will readdress after lab work returns. Follow-up with this provider 07/18/2025 Subjective Patient comes in to sign with internal medicine primary care with complaints of abdominal discomfort lower with what he describes as some testicular pain. Patient was seen multiple times in emergency medicine with no findings of acute concern. Patient signed out AMA previous visit prior to disposition. Patient currently denies any chest pain nausea vomiting diarrhea fever. Review of Systems Constitutional: Positive for fatigue. Gastrointestinal: Positive for abdominal pain. Genitourinary: Positive for flank pain and testicular pain. All other systems reviewed and are negative. Allergies[1] Current Medications[2] Medical History[3] Social History Tobacco Use Smoking status: Every Day Types: Cigarettes Smokeless tobacco: Current Substance Use Topics Alcohol use: Never Surgical History[4] Family History[5] Objective BP 130/71 Pulse 76 Temp 36.9 ?C (98.4 ?F) (Temporal) Ht 5' 9" (1.753 m) Wt 219 lb (99.3 kg) BMI 32.34 kg/m? Physical Exam Vitals reviewed. Constitutional: Appearance: Normal appearance. HENT: Head: Normocephalic and atraumatic. Right Ear: Tympanic membrane, ear canal and external ear normal. Left Ear: Tympanic membrane, ear canal and external ear normal. Nose: Nose normal. Mouth/Throat: Mouth: Mucous membranes are moist. Pharynx: Oropharynx is clear. Eyes: Extraocular Movements: Extraocular movements intact. Conjunctiva/sclera: Conjunctivae normal. Pupils: Pupils are equal, round, and reactive to light. Cardiovascular: Rate and Rhythm: Normal rate and regular rhythm. Pulses: Normal pulses. Heart sounds: Normal heart sounds. Pulmonary: Breath sounds: Normal breath sounds. Abdominal: General: Abdomen is flat. Bowel sounds are normal. Palpations: Abdomen is soft. Musculoskeletal: General: Normal range of motion. Cervical back: Normal range of motion and neck supple. Skin: General: Skin is warm and dry. Capillary Refill: Capillary refill takes less than 2 seconds. Neurological: General: No focal deficit present. Mental Status: He is alert and oriented to person, place, and time. Psychiatric: Mood and Affect: Mood normal. Behavior: Behavior normal. Thought Content: Thought content normal. Judgment: Judgment normal. Data Reviewed and Summarized Labs: Labs ordered and pending Imaging/Testing: Ultrasound scrotum, CT abdomen [1] Allergies Allergen Reactions Iodinated Contrast Media Anaphylaxis Iodine Rash [2] Current Outpatient Medications Medication Sig Dispense Refill albuterol 108 (90 Base) MCG/ACT inhaler 2 puffs every 4 hours. ARIPiprazole (Abilify) 5 MG tablet Take 1 tablet by mouth daily. (Patient not taking: Reported on 06/15/2025) doxycycline (Vibramycin) 100 MG capsule Take 1 capsule (100 mg) by mouth 2 times daily for 7 days. Take with at least 8 ounces (large glass) of water, do not lie down for 30 minutes after 14 capsule 0 fexofenadine (Vivi) 180 MG tablet Take 180 mg by mouth daily. (Patient not taking: Reported on 06/15/2025) fluticasone (Flonase Allergy Relief) 50 MCG/ACT nasal spray Administer 1 spray into each nostril daily. (Patient not taking: Reported on 06/15/2025) Vraylar 1.5 MG capsule take 1 capsule BY MOUTH daily on Friday, Friday and (more content not included)... Normal [facility] CBC W Auto Differential pane l (Bld)Ordered By: Candice Cunningham on 06-15-2025 Basophils (Bld) [#/Vol] 0 10*3/uL 0.0 - 0.2 10*3/uL [facility] Basophils/100 WBC (Bld) 0.5 % 0.0 - 2.0 % [facility] Eosinophils (Bld) [#/Vol] 0.1 10*3/uL 0.0 - 0.5 10*3/uL [facility] Eosinophils/100 WBC (Bld) 0.9 % 0.0 - 6.0 % [facility] Erythrocyte distribution width (RBC) [Ratio] 12.6 % 11.5 - 15.0 % [facility] Hematocrit (Bld) [Volume fraction] 47.1 % 40.0 - 52.0 % [facility] Hemoglobin (Bld) [Mass/Vol] 17.1 g/dL 13.0 - 18.0 g/dL [facility] Immature granulocytes (Bld) [#/Vol] 0 10*3/uL NINF - 0.1 10*3/uL [facility] Immature granulocytes/100 WBC (Bld) 0.2 % 0.0 - 2.0 % [facility] Interpretation and review of laboratory results Abnormal [facility] Lymphocytes (Bld) [#/Vol] 2 10*3/uL 1.0 - 4.3 10*3/uL [facility] Lymphocytes/100 WBC (Bld) 23.1 % 15.0 - 45.0 % [facility] MCH (RBC) [Entitic mass] 32.2 pg 26.0 - 34.[address] [facility] MCHC (RBC) [Mass/Vol] 36.3 % High 30.5 - 36.0 % [facility] MCV (RBC) [Entitic vol] 88.7 fL 77.0 - 99.[address] [facility] Monocytes (Bld) [#/Vol] 0.7 10*3/uL 0.0 - 0.9 10*3/uL [facility] Monocytes/100 WBC (Bld) 7.6 % 5.0 - 13.0 % [facility] Neutrophils (Bld) [#/Vol] 6 10*3/uL 1.8 - 7.5 10*3/uL [facility] Neutrophils/100 WBC (Bld) 67.7 % 38.0 - 82.0 % [facility] [employer] Nucleated RBC/100 WBC (Bld) [Ratio] 0 % [facility] Platelet mean volume (Bld) [Entitic vol] 10.2 fL 9.0 - 12.[address] [facility] Comment on above: MPV is a calculated measurement using platelet volume ratio Platelets (Bld) [#/Vol] 224 10*3/uL 140 - 440 10*3/uL [facility] [employer] RBC (Bld) [#/Vol] 5.31 10*6/uL 4.40 - 5.9 0 10*6/uL [facility] WBC (Bld) [#/Vol] 8.8 10*3/uL 3.6 - 10.7 10*3/uL [facility] CBC WITH AUTO DIFFERENTIALon 06-15-2025 Basophils (Bld) [#/Vol] 0.0 10*3/uL Normal 0.0-0.2 [facility] Comment on above: Performed By: #### L [id number] ####Equipment Service Associate: ALEKSANDRA CHRISTIANSON ([phone])[facility]AMPUSA ALEX RITTMAN (SWRLAB)[address] [place] [address] [place] Basophils/100 WBC (Bld) 0.5 % Normal 0.0-2.0 [facility] Comment on above: Performed By: #### L [id number] ####Equipment Service Associate: ALEKSANDRA CHRISTIANSON ([id number])[facility]AMPUSA [facility] (SWRL[facility])[address] [place] [address] [place] Eosinophils (Bld) [#/Vol] 0.1 10*3/uL Normal 0.0-0.5 [facility] Comment on above: Performed By: #### L [id number] ####Equipment Service Associate: ALKESANDRA CHRISTIANSON ([phone])[facility]AMPUSA [facility] [facility] (SW[facility])[address] [place] [address] [place] Eosinophils/100 WBC (Bld) 0.9 % Normal 0.0-6.0 [facility] Comment on above: Performed By: #### L [id number] ####Equipment Service Associate: ALEKSANDRA CHRISTIANSON ([phone])[facility] CAMPUSDimas [place] R[place]AN (SWRLAB)[address] [place] [address] Erythrocyte distribution width (RBC) [Ratio] 12.6 % Normal 11.5-15.0 [facility] Comment on above: Performed By: #### L [id number] ####Equipment Service Associate: ALEKSANDRA CHRISTIANSON ([id number])[facility]AMPUSDimas [place] (SWRL[place])[address] [place] [address] Hematocrit (Bld) [Volume fraction] 47.1 % Normal 40.0-52.0 [facility] Comment on above: Performed By: #### L [id number] ####Equipment Service Associate: ALEKSANDRA CHRISTIANSON ([id number])[facility]AMPUSDimas [place] (SWRL[place])[address] [place] [address] Hemoglobin (Bld) [Mass/Vol] 17.1 g/dL Normal 13.0-18.0 [facility] Comment on above: Performed By: #### L [id number] ####Equipment Service Associate: ALEKSANDRA CHRISTIANSON ([phone])[facility]AMPUSDimas [place] (SW[place])[address] [place] [address] IMMATURE GRANS % 0.2 % Normal 0.0-2.0 [facility] Comment on above: Performed By: #### L [id number] ####Equipment Service Associate: ALEKSANDRA CHRISTIANSON ([id number])[facility]AMPUSDimas [place] (SW[place])[address] [place] [address] IMMATURE GRANS ABSOLUTE 0.0 10*3/uL Normal <0.1 [facility] Comment on above: Performed By: #### L [id number] ####Equipment Service Associate: ALEKSANDRA CHRISTIANSON ([phone])[facility]AMPUSDimas [place] (SW[place])[address] [place] [address] Lymphocytes (Bld) [#/Vol] 2.0 10*3/uL Normal 1.0-4.3 [facility] Comment on above: Performed By: #### L [id number] ####Equipment Service Associate: ALEKSANDRA CHRISTIANSON ([phone])[facility]AMPUSDimas [place] (SWRL[place])[address] [place] [address] Lymphocytes/100 WBC (Bld) 23.1 % Normal 15.0-45.0 [facility] Comment on above: Performed By: #### L [id number] ####Equipment Service Associate: ALEKSANDRA CHRISTIANSON ([id number])[facility]AMPUSDimas [place] (SWRL[place])[address] [place] [address] MCH (RBC) [Entitic mass] 32.2 pg Normal 26.0-34.0 [facility] Comment on above: Performed By: #### L [id number] ####Equipment Service Associate: ALEKSANDRA CHRISTIANSON ([id number])[facility]AMPUSDimas [place] (SW[place])[address] [place] [address] MCHC 36.3 % High 30.5-36.0 [facility] Comment on above: Performed By: #### L [id number] ####Equipment Service Associate: ALEKSANDRA CHRISTIANSON ([phone])[facility]AMPUSDimas [place] (SWRL[place])[address] [place] [address] MCV (RBC) [Entitic vol] 88.7 fL Normal 77.0-99.0 [facility] Comment on above: Performed By: #### L [id number] ####Equipment Service Associate: ALEKSANDRA CHRISTIANSON ([id number])[facility]AMPUSDimas [place] (SWRL[place])[address] [place] [address] Monocytes (Bld) [#/Vol] 0.7 10*3/uL Normal 0.0-0.9 [facility] Comment on above: Performed By: #### L [id number] ####Equipment Service Associate: ALEKSANDRA CHRISTIANSON ([phone])[facility]AMPUSDimas [place] (SWRL[place])[address] [place] [address] Monocytes/100 WBC (Bld) 7.6 % Normal 5.0-13.0 [facility] Comment on above: Performed By: #### L [id number] ####Equipment Service Associate: ALEKSANDRA CHRISTIANSON ([phone])[facility]AMPUSDimas [place] (SW[place])[address] [place] [address] NEUTROPHILS ABSOLUTE 6.0 10*3/uL Normal 1.8-7.5 [facility] Comment on above: Performed By: #### L [id number] ####Equipment Service Associate: ALEKSANDRA CHRISTIANSON ([id number])[facility]AMPUSDimas [place] (SWRL[place])[address] [place] [address] Neutrophils/100 WBC (Bld) 67.7 % Normal 38.0-82.0 [facility] Comment on above: Performed By: #### L [id number] ####Equipment Service Associate: ALEKSANDRA CHRISTIANSON ([phone])[facility]AMPUSDimas [place] (SWRL[place])[address] [place] [address] NRBC 0.0 /100 WBCs Normal 0.0-2.0 [facility] Comment on above: Performed By: #### L [id number] ####Equipment Service Associate: ALEKSANDRA CHRISTIANSON ([id number])[facility]AMPUSDimas [place] (SWRL[place])[address] [place] [address] Platelet mean volume (Bld) [Entitic vol] 10.2 fL Normal 9.0-12.7 [facility] Comment on above: Result Comment: MPV is a calculated measurement using platelet volume ratio Performed By: #### L [id number] ####Equipment Service Associate: ALEKSANDRA CHRISTIANSON ([phone])[facility] CAMPUSDimas [place] (SWRL[place])[address] [place] [address] [place] Platelets (Bld) [#/Vol] 224 10*3/uL Normal 140-440 [facility] Comment on above: Performed By: #### L [id number] ####Equipment Service Associate: ALEKSANDRA CHRISTIANSON ([phone])[facility]AMPUSDimas [place] (SWRL[place])[address] [place] [address] [place] RBC (Bld) [#/Vol] 5.31 10*6/uL Normal 4.40-5.90 [facility] Comment on above: Performed By: #### L [id number] ####Equipment Service Associate: ALEKSANDRA CHRISTIANSON ([phone])[facility]AMPUSDimas [place] (SWRL[place])[address] [place] [address] WBC (Bld) [#/Vol] 8.8 10*3/uL Normal 3.6-10.7 [facility] Comment on above: Performed By: #### L [id number] ####Equipment Service Associate: ALEKSANDRA CHRISTIANSON ([id number])[facility] CAMPUSDimas JOHNOSN RITTMAN (SWRLAB)[address] [place] [address] COMPLETE URINALYSIS WITH REF PETAR TO CULTUREon 06-15-2025 BACTERIA (#/HPF) IN URINE Negative Normal Negative [facility] Comment on above: Performed By: #### L [id number] ####Equipment Service Associate: ALEKSANDRA CHRISTIANSON ([id number])[facility]AMPUSDimas [place] (SWRL[place])[address] [place] [address] BILIRUBIN, TOTAL PRESENCE IN URINE Negative Normal Negative [facility] Comment on above: Performed By: #### L [id number] ####Equipment Service Associate: ALEKSANDRA CHRISTIANSON ([id number])[facility]AMPUSDimas [place] (SWRL[place])[address] [place] [address] Clarity (U) Clear Normal Clear [facility] Comment on above: Performed By: #### L [id number] ####Equipment Service Associate: ALEKSANDRA CHRISTIANSON ([id number])[facility]AMPUSDimas [place] (SW[place])[address] [place] [address] Color (U) Light Yellow Normal Lt. Yellow [facility] Comment on above: Performed By: #### L [id number] ####Equipment Service Associate: ALEKSANDRA CHRISTIANSON ([phone])[facility]AMPUSDimas [place] (SWRL[place])[address] [place] [address] [place] GLUCOSE (MG/DL) IN URINE Normal Normal Normal (<70) [facility] Comment on above: Performed By: #### L [id number] ####Equipment Service Associate: ALEKSANDRA CHRISTIANSON ([id number])[facility]AMPUSDimas [place] (SW[place])[address] [place] [address] HEMOGLOBIN PRESENCE IN URINE 0.1 mg/dL Abnormal Negative [facility] Comment on above: Performed By: #### L [id number] ####Equipment Service Associate: ALEKSANDRA CHRISTIANSON ([id number])[facility]AMPUSDimas [place] (SWRL[place])[address] [place] [address] Ketones Ql (U) Negative Normal Negative [facility] Comment on above: Performed By: #### L [id number] ####Equipment Service Associate: ALEKSANDRA CHRISTIANSON ([id number])[facility]AMPUSDimas [place] (SWRL[place])[address] [place] [address] LEUKOCYTE ESTERASE PRESENCE IN URINE BY TEST STRIP Negative Normal Negative [facility] Comment on above: Performed By: #### L [id number] ####Equipment Service Associate: ALEKSANDRA CHRISTIANSON ([id number])[facility]AMPUSDimas [place] ([place])[address] [place] [address] NITRITE PRESENCE IN URINE Negative Normal Negative [facility] Comment on above: Performed By: #### L [id number] ####Equipment Service Associate: ALEKSANDRA CHRISTIANSON ([id number])[facility]AMPUSDimas [place] (SW[place])[address] [place] [address] pH (U) 5.5 [pH] Normal 5.0-8.0 [facility] Comment on above: Performed By: #### L [id number] ####Equipment Service Associate: ALEKSANDRA CHRISTIANSON ([phone])[facility]AMPUSDimas [place] (SWRL[place])[address] [place] [address] Protein (U) [Mass/Vol] Negative Normal Negative [facility] Comment on above: Performed By: #### L [id number] ####Equipment Service Associate: ALEKSANDRA CHRISTIANSON ([id number])[facility]AMPUSDimas [place] (SWRL[place])[address] [place] [address] [place] RBC (#/HPF) IN URINE SEDIMENT 3-5 Abnormal 0-2 [facility] Comment on above: Performed By: #### L [id number] ####Equipment Service Associate: ALEKSANDRA CHRISTIANSON ([id number])[facility]AMPUSA [facility] (SW[facility])[address] [place] [address] Specific gravity (U) [Rel density] 1.012 Normal 1.005-1.030 [facility] Comment on above: Result Comment: ELI Leger COMMENTS: A specimen with <=10 WBC is not consistent with inflammation. This specimen will not reflex to a urine culture. Performed By: #### L [id number] ####Equipment Service Associate: ALEKSANDRA CHRISTIANSON ([id number])[facility]AMPUSDimas [place] (SWRL[place])[address] [place] [address] Specimen volume (U) 12 mL Normal [facility] Comment on above: Performed By: #### L [id number] ####Equipment Service Associate: ALEKSANDRA CHRISTIANSON ([id number])[facility]AMPUSDimas [place] (SWRLAB)[address] [place] [address] [place] SQUAMOUS EPITHELIAL CELLS (#/HPF) IN URINE SEDIMENT Negative Normal 3-5 [facility] Comment on above: Performed By: #### L [id number] ####Equipment Service Associate: ALEKSANDRA CHRISTIANSON ([phone])[facility] CAMPUSDimas Q[place] RITTMAN (SWRLAB)[address] [place] [address] [place] UROBILINOGEN (MG/DL) IN URINE Normal Normal Normal (0-1) [facility] Comment on above: Performed By: #### L [id number] ####Equipment Service Associate: ALEKSANDRA CHRISTIANSON ([id number])[facility]AMPUSDimas [place] RITTMAN (SWRLAB)[address] [place] [address] [place] WBC (LEUKOCYTE) (#/HPF) IN URINE SEDIMENT Negative Normal 0-5 [facility] Comment on above: Performed By: #### L [id number] ####Equipment Service Associate: ALEKSANDRA CHRISTIANSON ([id number])[facility]AMPUSDimas [place] (SWRLAB)[address] COMPREHENSIVE METABOLIC PANE Antoni 06-15-2025 Albumin [Mass/Vol] 4.2 g/dL Normal 3.5-5.0 [facility] Comment on above: Performed By: #### L [id number] ####Equipment Service Associate: ALEKSANDRA CHRISTIANSON ([phone])[facility]AMPUSDimas [place] (SWRL[place])[address] ALP [Catalytic activity/Vol] 48 U/L Normal 40-150 [facility] Comment on above: Performed By: #### L [id number] ####Equipment Service Associate: ALEKSANDRA CHRISTIANSON ([phone])[facility]AMPUSDimas [place] (SW[place])[address] [place] [address] [place] ALT [Catalytic activity/Vol] 18 U/L Normal <40 [facility] Comment on above: Performed By: #### L [id number] ####Equipment Service Associate: ALEKSANDRA CHRISTIANSON ([phone])[facility]AMPUSDimas [place] (SW[place])[address] Anion gap [Moles/Vol] 11 mmol/L Normal 3-13 [facility] Comment on above: Performed By: #### L [id number] ####Equipment Service Associate: ALEKSANDRA CHRISTIANSON ([phone])[facility]AMPUSDimas [place] (SW[place])[address] [place] [address] [place] AST [Catalytic activity/Vol] 31 U/L Normal <34 [facility] Comment on above: Performed By: #### L [id number] ####Equipment Service Associate: ALEKSANDRA CHRISTIANSON ([id number])[facility]AMPUSDimas [place] (SW[place])[address] Bilirubin [Mass/Vol] 0.6 mg/dL Normal <1.2 [facility] Comment on above: Performed By: #### L [id number] ####Equipment Service Associate: ALEKSANDRA CHRISTIANSON ([phone])[facility]AMPUSDimas [place] (SW[place])[address] Calcium [Mass/Vol] 8.8 mg/dL Normal 8.4-10.2 [facility] Comment on above: Performed By: #### L [id number] ####Equipment Service Associate: ALEKSANDRA CHRISTIANSON ([phone])[facility]AMPUSDimas [place] (SW[place])[address] Chloride [Moles/Vol] 106 mmol/L Normal 98-107 [facility] Comment on above: Performed By: #### L [id number] ####Equipment Service Associate: ALEKSANDRA CHRISTIANSON ([phone])[facility]AMPUSDimas [place] (SW[place])[address] CO2 [Moles/Vol] 21 mmol/L Low 22-29 [facility] Comment on above: Performed By: #### L [id number] ####Equipment Service Associate: ALEKSANDRA CHRISTIANSON ([phone])[facility]AMPUSDimas [place] (SWRLAB)[address] [place] [address] Creatinine [Mass/Vol] 0.80 mg/dL Normal 0.72-1.25 [facility] Comment on above: Performed By: #### L [id number] ####Equipment Service Associate: ALEKSANDRA CHRISTIANSON ([id number])[facility]AMPUSDimas [place] (SWRL[place])[address] GLOMERULAR FILTRATION RATE ML/MIN/1.73 SQ M.PREDICTED >90.0 Normal >60.0 [facility] Comment on above: Result Comment: Calc ulation based on the Chronic Kidney Disease Epidemiology Collaboration (CKD-EPI) equation refit without adjustment for race Performed By: #### L [id number] ####Equipment Service Associate: ALEKSANDRA CHRISTIANSON ([phone])[facility]AMPUSDim[facility] [place] (SW[place])[address] Glucose [Mass/Vol] 93 mg/dL Normal 74-100 [facility] Comment on above: Performed By: #### L [id number] ####Equipment Service Associate: ALEKSANDRA CHRISTIANSON ([id number])[facility]AMPUSDim[facility] LOZANOTMAN (SWRLAB)[address] Potassium [Moles/Vol] 4.2 mmol/L Normal 3.5-5.1 [facility] Comment on above: Result Comment: [facility] potassium values may be up to 0.5 mmol/L lower than serum values. Performed By: #### L [id number] ####Equipment Service Associate: ALEKSANDRA CHRISTIANSON ([phone])[facility]AMPUSDimas LOZANOTMAN (SWRLAB)[address] [place] [address] Protein [Mass/Vol] 7.2 g/dL Normal 6.4-8.3 [facility] Comment on above: Performed By: #### L [id number] ####Equipment Service Associate: ALEKSANDRA CHRISTIANSON ([phone])[facility]AMPUSDim[facility] LOZANOTMAN (SWRLAB)[address] [place] [address] Sodium [Moles/Vol] 138 mmol/L Normal 136-145 [facility] Comment on above: Performed By: #### L [id number] ####Equipment Service Associate: ALEKSANDRA CHRISTIANSON ([id number])[facility]AMPUSDim[facility] [place] (SWRLAB)[address] [place] [address] Urea nitrogen [Mass/Vol] 12 mg/dL Normal 8-21 [facility] Comment on above: Performed By: #### L [id number] ####Equipment Service Associate: ALEKSANDRA CHRISTIANSON ([id number])[facility]AMPUSDimas LOZ[place]OTMAN (SWRLAB)[address] Comprehensive metabolic 1998 panelon 06-15-2025 Albumin [Mass/Vol] 4.2 g/dL 3.5 - 5.0 g/dL [facility] ALP [Catalytic activity/Vol] 48 U/L 40 - 150 U/L [facility] ALT [Catalytic activity/Vol] 18 U/L NINF - 40 U/L [facility] Anion gap [Moles/Vol] 11 mmol/L 3 - 13 mmol/L [facility] AST [Catalytic activity/Vol] 31 U/L [facility] - 34 U/L [facility] Bilirubin [Mass/Vol] 0.6 mg/dL NINF - 1.2 mg/dL [facility] Calcium [Mass/Vol] 8.8 mg/dL 8.4 - 10. 2 mg/dL [facility] Chloride [Moles/Vol] 106 mmol/L 98 - 10 7 mmol/L [facility] CO2 [Moles/Vol] 21 mmol/L Low 22 - 29 mmol/L [facility] Creatinine [Mass/Vol] 0.8 mg/dL 0.72 - 1.25 mg/dL [facility] GFR/1.73 sq M.predicted (S/P/Bld) [Vol rate/Area] - PINF [facility] Comment on above: Calculation based on the Chronic Kidney Disease Epidemiology Collaboration (CKD-EPI) equation refit without adjustment for race Glucose [Mass/Vol] 93 mg/dL 74 - 100 mg/dL [facility] Interpretation and review of laboratory results Abnormal [facility] Potassium [Moles/Vol] 4.2 mmol/L 3.5 - 5.1 mmol/L [facility] Comment on above: Plasma potassium emdund ues may be up to 0.5 mmol/L lower than serum values. Protein [Mass/Vol] 7.2 g/dL 6.4 - 8.3 g/dL [facility] Sodium [Moles/Vol] 138 mmol/L 136 - 145 mmol/L [facility] Urea nitrogen [Mass/Vol] 12 mg/dL 8 - 21 mg/dL [facility] ED Nursing Noteon 06-15-2025 ED Nursing Note Pt. Outside of room and attempting to elope with IV still in place. This nurse asked patient to step back into the room so that I could remove the IV before they left. Pt. Complied but would not sit down. Pt. Was agitated and complaining about the provider and his experience of care since arrival to this ED. Pt. Reported that the nurse and "other lady" were nice but that the provider was rude and confrontational. Pt. Stated that he could hear the doctors demeanor with the patient in room 14 and said that it "was completely different" than how the doctor approached and spoke to him. Pt. Stated being angry that he "keeps going to emergency departments and I don't feel good and I know that I'm sick and no one helps me." Pt. Also reports "being told to come to the ER." By urgent cares and pt. Nurse lines. IV was removed. Pt. Was given the number for [facility] Customer Service and advised to call them the next day in order to process his complaint. The patient and his family member had deescalated by the time this nurse walked them out to the lobby. Provider notified. [employer] notified. Normal [facility] ED Nursing Note Patient is here for possible blood in stool and urine and generalized pain including groin pain that has been going on since December. Blood in the stool has been going on for 1 year and blood in the urine started today. He had atb resistant infection and was on ATB and antifungals for staph, bacterial PNE, cellulitis & epididymitis & treatment ended in March. He complains of neck pain and lymph node pain and increased sweating under his armpits. He feels like food is getting stuck in his throat when he eats. He does not have a PCP at this time. He is not taking anything for his pain or symptoms. Call light within reach. Normal [facility] ED Provider Noteon ED Provider Note EMERGENCY DEPARTMENT ENCOUNTER Pt Name: Ce Baer Birthdate 1985 Date of evaluation: 06/15/2025 ED Provider: Joycelyn Nelson DO CHIEF COMPLAINT Chief Complaint Patient presents with Rectal Bleeding Blood in Urine HISTORY OF PRESENT ILLNESS (Location/Symptom, Timing/Onset, Context/Setting, Quality, Duration, Modifying Factors, Severity) Note limiting factors. I wore appropriate PPE for the entirety of this encounter. HPI Patient has been checked into the emergency department prior to my shift start time. Patient was brought to my attention at 705PM PM on 06/16/25 Ce Baer is a 40 y.o. who presents to the emergency department with chief complaint of multiple complaints. 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 He reports his neck, back, abdominal, legs, joints hurt. He feels that he sleeps 20 hours a day every day and still feels tired. All of the symptoms have been occurring for many months. Patient will not quantify the specific amount of months. He reports that he was seen by a primary care doctor, urgent care, environmental doctor, and numerous doctors who keep telling him he needs to go to the ER. Thus he came to the ER today. Patient is very aggravated and agitated, see [facility] for more details. Nursing Notes were reviewed. REVIEW OF SYSTEMS Review of Systems Pertinent positives and negatives as per HPI. PAST MEDICAL HISTORY Medical History[1] SURGICAL HISTORY Surgical History[2] CURRENT MEDICATIONS Discharge Medication List as of 06/15/2025 11:17 PM CONTINUE these medications which have NOT CHANGED Details albuterol 108 (90 Base) MCG/ACT inhaler 2 puffs every 4 hours., Starting Fri03/15/2025, Historical Med ARIPiprazole (Abilify) 5 MG tablet Take 1 tablet by mouth daily., Historical Med fexofenadine (Vivi) 180 MG tablet Take 180 mg by mouth daily., Starting [facility] 07/29/2024, Historical Med fluticasone (Flonase Allergy Relief) 50 MCG/ACT nasal spray Administer 1 spray into each nostril daily., Historical Med Vraylar 1.5 MG capsule take 1 capsule BY MOUTH daily on Friday, Friday and Friday, Historical Med ALLERGIES Iodinated contrast media and Iodine FAMILY HISTORY Family History[3] SOCIAL HISTORY Social History[4] SCREENINGS PHYSICAL EXAM ED Triage Vitals [06/15/25 1847] Temp Heart Rate Resp BP 36.8 ?C (98.2 ?F) 96 16 (!) 143/88 SpO2 Temp Source Heart Rate Source Patient Position 96 % Tympanic -- -- BP Location FiO2 (%) -- -- General: A&O x 3, well appearing, agitated, aggravated Head: NC/AT Eyes: Atraumatic, EOMI, clear conjunctival, PERRLA Nose: Atraumatic, no skin changes Throat: Unable to perform, patient uncooperative Neck: Unable to perform, patient uncooperative Heart: Unable to perform, patient uncooperative Lungs: Unable to perform, patient uncooperative Abd: Unable to perform, patient uncooperative Back: Unable to perform, patient uncooperative Extremity:Unable to perform, patient uncooperative Neurologic: normal gait, Unable to perform full exam, patient uncooperative Skin: warm, dry, no obvious rashes DIAGNOSTIC RESULTS Procedures/EKG: EKG was reviewed by myself. Physician EKG interpretation can be found below in [facility] RADIOLOGY (Per Emergency Physician): As per below in [facility] section Interpretation per the Radiologist below, if available at the time of this note: No orders to display ED BEDSIDE ULTRASOUND: Performed by ED Physician - none LABS: Labs Reviewed COMPREHENSIVE METABOLIC PANEL - Abnormal Result Value SODIUM 138 POTASSIUM 4.2 CHLORIDE 106 CARBON DIOXIDE 21 (*) ANION GAP 11 UREA NITROGEN 12 CREATININE 0.80 GLUCOSE 93 CALCIUM 8.8 AST (SGOT) 31 ALT 18 ALKALINE PHOSPHATASE 48 ALBUMIN 4.2 BILIRUBIN, TOTAL 0.6 TOTAL PROTEIN 7.2 eGFR >90.0 CBC WITH AUTO DIFFERENTIAL - Abnormal Auto WBC 8.8 RBC 5.31 Hemoglobin 17.1 Hematocrit 47.1 MCV 88.7 MCH 32.2 MCHC 36.3 (*) RDW 12.6 Platelets 224 MPV 10.2 nRBC 0.0 Neutrophils Relative 67.7 Lymphocytes Relative 23.1 Monocytes Relative 7.6 Eosinophils Relative 0.9 Basophils Relative 0.5 Immature Grans % 0.2 Neutrophils Absolute 6.0 Lymphocytes Absolute 2.0 Monocytes Absolute 0.7 Eosinophils Absolute 0.1 Basophils Absolute 0.0 Immature Grans Absolute 0.0 COMPLETE URINALYSIS WITH REFLEX TO CULTURE - Abnormal Color, Urine Light Yellow Clarity, Urine Clear pH, Urine 5.5 Leukocytes, Urine Negative Nitrite, Urine Negative Protein, Urine Negative Glucose, Urine Normal Bilirubin, Urine Negative Ketones, Urine Negative Urobilinogen, Urine Normal Blood, Urine 0.1 (*) Volume, Urine 12 mL RBC, Urine 3-5 (*) WBC, Urine Negative Squamous Epithelial, Urine Negative Bacteria, Urine Negative S (more content not included)... Normal [facility] Progress Noteon 06-15-2025 Progress Note This encounter was created in error - please disregard. Patient presents urgent care chief complaint of concern for fatigue, possible infection. Also reports testicular pain, history of testicular masses, severe groin pain that has been present for months. Also reports blood in urine, possible blood in stool. Symptoms have been present on and off over the last 2 years, have gradually worsened. Reports severe joint pain and body pain, states that he is so fatigued he is sleeping 20 hours a day. I discussed with patient due to severity of pain, severity of symptoms patient will need to be evaluated in the emergency department setting for severely worsening symptoms, although patient does have a PCP appointment in a month from now. Patient to keep this appointment, but I do recommend further workup and evaluation due to severe testicular/joint pain, severe fatigue. Patient verbalizes agreement, states he would like to travel to emergency department via private vehicle, this is reasonable. Patient left urgent care facility with an upright steady gait. Normal [facility] Urinalysis complete panel (U )on 06-15-2025 Bacteria LM.HPF (Urine sed) [#/Area] Negative Negative /HPF [facility] Bilirubin Ql (U) Negative Negative mg/dL [facility] Clarity (U) Clear Clear [facility] Color (U) Light Yellow Lt. Yellow [facility] Epithelial cells.squamous LM.HPF (Urine sed) [#/Area] Negative [facility] Glucose Ql (U) Normal Normal (<70) mg/dL [facility] Hemoglobin Ql (U) 0.1 mg/dL Abnormal Negative [facility] ealth Interpretation and review of laboratory results Abnormal [facility] Ketones (U) [Mass/Vol] Negative Negat jackie mg/dL [facility] Leukocyte esterase Test strip Ql (U) Negative Negative Taurus/uL [facility] Nitrite Ql (U) Negative Negative [facility] th pH (U) 5.5 [pH] 5.0 - 8.[address] [facility] Protein (U) [Mass/Vol] Negative Negat jackie mg/dL [facility] RBC LM.HPF (Urine sed) [#/Area] 3-[address] [facility] Specific gravity (U) [Rel density] 1.012 1.005 - 1.030 [facility] Urobilinogen (U) [Mass/Vol] Normal Normal (0-1) mg/dL [facility] Volume, Urine 12 mL [facility] WBC LM.HPF (Urine sed) [#/Area] Negative [facility] A specimen with <=10 WBC is not consistent with inflammation. This specimen will not reflex to a urine culture. [facility] 36on 06-13-2025 36 S: Caller [facility] nurse regarding multiple issues. B: Onset of symptoms/concern: Not an established patient A: Caller reports pain from groin to feet, lower back and stomach pain, states stomach pain is chronic and ongoing for several years now, went to a GI specialist and had an EGD and colonoscopy done and was found to have polyps but never followed up. Caller states he went to the [facility], hasn't seen a PCP in a couple years now, also reports pain in legs and lower back for the past couple months and fatigue for the past 1-1.5 months R: Caller advised to keep his appointment as scheduled to establish care on 07/20/25 as scheduled in order to best assess his concerns and make any recommendations for further testing, screenings or referral to a specialist. Caller placed on wait list in case of cancellation. Reason for Disposition Fatigue is a chronic symptom (recurrent or ongoing AND present > 4 weeks) Protocols used: Weakness (Generalized) [facility] ----- CE BAER II ([id number]) 1985 M Date Time Provider Department 04/22/25 CE WOOD During your visit today, we recorded the following information about you: Dorcas Calle RN 04/22/2025 10:49 AM Signed Patient called into the office wanting to be called back. Attempted to call patient and got voicemail. Left message for patient to call back into the office. Dorcas Calle RN Allergies As of Date: 04/22/2025 Noted Allergy Reaction IODINE 03/07/2014 2 - Rash SHELLFISH DERIVED 06/29/2019 14 - Other: See Comments Date Reviewed: 01/12/2025 Reviewed by: Kenna Fofana MA - Fully Assessed Reason for Visit: Patient Question [8007] Prescriptions as of 04/22/2025 - fexofenadine (VIVI ALLERGY) 180 mg tablet Take 1 tablet by mouth once daily. - triamcinolone acetonide (NASACORT) 55 mcg nasal inhaler Use 2 Sprays in the nose once daily. Meds Comments as of 01/31/2016: No longer taking z-faraz 01/31/16. Problem List As Of Date 04/22/2025 Noted Resolved Depression [F32.A] Headache [R51] Hypertension [I10] 07/20/2019 Bipolar 1 disorder (HCC) [F31.9] 07/21/2019 Encounter Status:Closed by DORCAS CALLE on 04/22/25 [facility] 36on 03-22-2025 36 Returned pt's call b ut had to [facility] requesting call back. Informed pt in my voicemail that before we can proceed with possible SOCIAL SCIENCE RESEARCH ASSISTANT appt, would need his PCP and/or the provider he saw in [place] fax a referral to our office along with the pertinent labs/imaging/provider notes so we may review. [facility] 36on 03-21-2025 36 Name of Caller: Herb elias Contact Reason for Appointment: Ce was seen in [facility] in [place], [place] for cellulitis and staph of foot that did not heal from oral or IV antibiotics and also has bacterial pneumonia. He was referred to their infectious disease, but they are too far away from him. Ce would like to be seen at [facility] Infectious Disease. He has all of the reports and information from his care. Please reach out to Ce to advise. Office Name: Infectious Disease [facility] Emergency Department Summary on 03-19-2025 Emergency Department Summary [facility] Medical Records Department [address] [place] [address] Emergency Department Summary 03/19/25 MR#: [id number] Acct: [id number] Name: CE BAER MELANIE Rep #: [id number] : 1985 39 From: Matthias Tucker DO PCP: Dr. Elizabeth Argueta, DO Status:DEP ER Location: ED HPI History of Present Illness Chief Complaint: Chest Pain Informant: patient Narrative Narrative: Patient is a 39-year-old male with past medical history bipolar depression and OCD. He was recently seen in the ER on March 16 secondary to left foot redness and pain and was diagnosed with cellulitis and abscess and had in the area incised and drained. He had lab work and x-ray done at that time which revealed no signs of systemic infection or osteomyelitis or retained foreign body. The next day 03-17 he was seen at [facility]. I was able to review that chart and according to the ER documentation he was seen secondary to concern about his foot as well as chest discomfort and scrotal pain. He had an EKG which was normal sinus rhythm and chest x-ray obtained which was normal and he was discharged home. The patient then returns on for repeat evaluation. [facility] Medical History Laceration Obsessive compulsive disorder Depression Bipolar disorder Home Medications ???Medication ???Instructions ???Recorded ???Last Taken ???Type cephalexin 500 mg capsule 500 mg PO 4X/DAY 03/19/25 Unknown History dicyclomine 10 mg capsule 10 mg PO 4X/DAY PRN PRN abdominal 03/19/25 Unknown History pain doxycycline hyclate 100 mg tablet 100 mg PO BID 03/19/25 Unknown Hi story mupirocin 2 % topical ointment 1 applic topical TID 03/19/25 Unkn own History sulfamethoxazole 800 1 tab PO BID 03/19/25 Unknown Hist ory mg-trimethoprim 160 mg tablet Allergy/AdvReac Type Severity Reaction Status Date / Time iodine Allergy Rash Verified 03/19/25 04:23 shellfish derived Allergy Anaphylaxis Verified 03/19/25 04:23 Family History no significant family his Social History Smoking Status: Current every day smoker tobacco type: cigarettes EXAM Physical Exam Const Vital Signs: 03/19/25 04:22 03/19/25 04:30 Temperature 98.2 F 98.2 F Temperature Source Oral Oral Pulse Rate 87 87 Respiratory Rate 16 19 H Blood Pressure 156/88 H 156/88 H Blood Pressure Mean 110 110 Pulse Ox 96 97 MDM MDM MDM Narrative Medical decision making narrative: Patient arrived to the ER hypertensive but otherwise with stable vitals. When I walked into the room I asked the patient why he was presenting to the ER once again as he has been seen on the and and had labs and images. I did this because I was curious about his reasoning for returning to the hospital; particularly wondering if he was informed to come back in secondary to change in symptoms or if there were new symptoms such as worsening pain or swelling or redness. However I guess my tone was inappropriate in this line of questioning and the patient became very irate that I would ask why he was returning to the hospital after 2 previous workups. I informed the patient that I was not trying to be rude but was generally curious about what was causing him to bounce back to the ER so frequently. I did offer my apologies but patient states he is not interested in hearing that and that the apology "is not excepted". He states that he does not want me to evaluate him at any point now in the ER visit and just wishes to have his IV pulled and to leave. I did inform the patient that if he is having any new or different symptoms he should be reevaluated but he does not want to have this done at this time as he feels I was rude and arrogant and "berating him". Therefore the patient will leave AGAINST MEDICAL ADVICE. History Record Review Discussion w/independent historian: Patient Discharge Plan Triage Chief Complaint: Chest Pain ED Provider: Matthias Tucker Dx/Rx/DC Orders Clinical Impression: Cellulitis and abscess of toe of left foot, History of OCD (obsessive compulsive disorder), Bipolar disorder, Tobacco user Prescriptions: No Action cephalexin 500 mg capsule 500 mg PO 4X/DAY mupirocin 2 % ointment 1 applic topical TID doxycycline hyclate 100 mg tablet 100 mg PO BID dicyclomine 10 mg capsule 10 mg PO 4X/DAY PRN PRN (Reason: abdominal pain) sulfamethoxazole-trimetho prim 800-160 mg tablet 1 tab PO BID Primary Care Provider: Elizabeth Argueta Referrals: Elizabeth Argueta, DO [Primary Care Provider] - Print Language: Nigerien Disposition Disposition: Against Medical Advice Discharge Date/Time: 03/19/25 04:59 What to do if you have Problems For (more content not included)... Normal [facility] Wound Cultureon 03-18-2025 List Antibiotics Las t 48 Hours? bactrim and keflex No growth aerobically. Normal [facility] Comment on above: Performed By: #### M 100.3000, M100.2000 #### [facility] [address] [place], [address] ED Prov Noteon 03-17-2025 ED Prov Note ED PROVIDER NOTE [facility] EMERGENCY [facility] NAME: Ce Baer AGE: 39 y.o. : 1985 VISIT DATE: 03/17/2025 CSN: [id number] PCP: No, Physician Chief Complaint Patient presents with Cough Wound Check 39-year-old male presents here today with multiple complaints. Patient notes that a week ago he developed some pain between the webspace of his 4th and 5th toes of his left foot. He was initially diagnosed with athlete's foot at an outside facility but then on subsequent ER visits he was diagnosed with an abscess/cellulitis and did undergo an incision and drainage of his webspace 2 days ago. He is currently on cephalexin Bactrim and does feel that the foot is getting better. Patient notes that since starting the Bactrim and Keflex he developed a cough. Patient was concerned whether or not this could have been related to his new antibiotics. Patient denies having any other systemic symptoms. No hives or itching. No wheezing. Patient notably was seen by a primary care provider who prescribed an albuterol for his cough which he has not been taking. Patient also is concerned about having chest pain with coughing and having some sharp shooting pain which he thinks is coming from his heart. He has had problem with palpitations in the past and describes prior pulmonary workup for lung disease that was apparently negative. Patient also is concerned about an abnormality in his scrotum. He notes that he was diagnosed with epididymitis by urologist and completed a course of antibiotics. His pain did not get better and he subsequently had a scrotal ultrasound that showed cyst in his scrotum. He has not followed up with a urologist since ultrasound performed. History reviewed. No pertinent past medical history. History reviewed. No pertinent surgical history. History reviewed. No pertinent family history. Social History [1] Previous Medications Medication Sig cephALEXin (KEFLEX) 500 MG capsule Take 1 (one) capsule (500 mg total) by mouth 4 (four) times a day . sulfamethoxazole-trimetho prim (BACTRIM DS,SEPTRA DS) 800-160 mg per tablet Take 1 (one) tablet by mouth 2 (two) times a day . Allergies[2] Review of Systems Constitutional: Negative for fever. HENT: Negative for sore throat. Respiratory: Positive for cough. Cardiovascular: Positive for chest pain. Gastrointestinal: Positive for diarrhea and vomiting (Chronic history of nausea/vomiting (questionable IBS)). Genitourinary: Scrotal pain with history of cyst on recent ultrasound. Musculoskeletal: Negative for arthralgias. Skin: Positive for rash (Left foot cellulitis) and wound (Left foot abscess at the 4th and 5th webspace). Neurological: Negative for headaches. Patient Vitals for the past 24 hrs: BP Temp Temp src Pulse Resp SpO2 Height Weight 03/17/25 1646 (!) 159/94 99.5 degrees F (37.5 degrees C) Oral 80 15 97 % 5' 9" 97.5 kg (215 lb) Physical Exam Vitals and nursing note reviewed. Constitutional: Appearance: He is well-developed. HENT: Head: Normocephalic and atraumatic. Cardiovascular: Rate and Rhythm: Normal rate and regular rhythm. Musculoskeletal: General: Normal range of motion. Pulmonary: Effort: Pulmonary effort is normal. Breath sounds: Normal breath sounds. No wheezing. Abdominal: Palpations: Abdomen is soft. Tenderness: There is no abdominal tenderness. Skin: General: Skin is warm and dry. Findings: Erythema (Patient has erythema and warmth localized to the webspace between his 4th and 5th toes and extends proximally.) present. No rash. Comments: No hives or urticaria. Neurological: Mental Status: He is alert and oriented to person, place, and time. Psychiatric: Behavior: Behavior normal. Laboratory & Radiographic Imaging (if done): No results found for this visit on 03/17/25. XR Chest AP/PA and LAT Final Result No acute cardiopulmonary process. Workstation ID: [id number] Procedures Medical Decision Making 39-year-old male presents here today with multiple complaints. Regarding his foot he is currently on Keflex and Bactrim and he describes that the condition of his foot is improving. I would consider adding topical Bactroban but no other change in his oral antibiotics. Regarding his cough and chest pain he is concerned whether this could related to his recent antibiotics. I do not suspect that there is any reactive airway disease based on my exam at this time and is not having any other systemic symptoms. I do not suspect allergies. This likely is coincidental and may be related to his multiple healthcare facility visits where he may have picked up a respiratory infection. A chest x-ray was obtained. While he is having some chest pain with coughing he is concerned that this could be cardiac in origin. An EKG was obtained. Regarding his concern about ongoing scrotal problems the importance of following up with a urologist w (more content not included)... [facility] Gram Stainon 03-17-2025 GS List Antibiotics Las t 48 Hours? bactrim and keflex Gram Stain Rare White Blood Cells Rare Gram negative rods Normal [facility] Comment on above: Performed By: #### M 100.3000, M100.2000 #### [facility] [address] [place], [address] XR CHEST AP/PA AND LATon XR CHEST AP/PA AND LAT EXAMINATION: XR CHEST AP/PA AND LAT HISTORY: ORDERING SYSTEM PROVIDED HISTORY: cough/chest pain, TECHNOLOGIST PROVIDED HISTORY: Illness/Other Reason for exam: Pt ambulates to ER, c/o cough and dyspnea x approx 3 weeks. Pt also reports on-going left foot/leg pain. Cancer History: n Surgery, RadiationHistory: n Encounter Type: Initial Additional signs and symptoms: n ORDERING SYSTEM PROVIDED DIAGNOSIS CODES: COMPARISON: None FINDINGS: Two-view chest x-ray. No pneumothorax, pleural effusion or focal airspace consolidation. Heart is normal in size. Bony thorax is unremarkable. IMPRESSION: No acute cardiopulmonary process. Workstation ID: [id number] Dictated by: ROSA MARIA GONZALEZ on FriMar 17, 2025 5:24:21 PM EDT Transcribed by: ROSA MARIA GONZALEZ on FriMar 17, 2025 5:24:21 PM EDT Finalized by: ROSA MARIA GONZALEZ on FriMar 17, 2025 5:24:21 PM EDT [facility] Comment on above: Order Comment: Injur y/Trauma or Illness?:Illness/Other How long have you had these symptoms (acute/chronic)?:Acute Reason for exam?:Pt ambulates to ER, c/o cough and dyspnea x approx 3 weeks. Pt also reports on-going left foot/leg pain. History of cancer?:n Surgeries, chemotherapy, or radiation?:n Type of Exam?:Initial Additional signs and symptoms?:n Absolute neutrophil countOrd ered By: Ari Walls on 03-16-2025 Neutrophils (Bld) [#/Vol] 5.2 10*3/uL 2.0-7.7 [facility] Anion gap in Serum or Plasma Ordered By: Ari Walls on 03-16-2025 Anion gap [Moles/Vol] 10 mmol/L - [facility] BUN/creatinine ratioOrdered By: Ari Walls on 03-16-2025 Urea nitrogen/Creatinine [Mass ratio] 19.8 mg/mg - [facility] Basic Metabolic Profile (BMP )on 03-16-2025 BUN/CRE 19.8 RATIO Normal - [facility] Comment on above: Performed By: #### L 100.0100, L500.2500 #### [facility] [address] [place], [address] Calcium [Mass/Vol] 8.5 mg/dL Normal 7.6-11.0 [facility] Comment on above: Performed By: #### L 100.0100, L500.2500 #### [facility] [address] [place], [address] Chloride [Moles/Vol] 105 mmol/L Normal 98-108 [facility] Comment on above: Performed By: #### L 100.0100, L500.2500 #### [facility] [address] [place], [address] CO2 [Moles/Vol] 21.4 mmol/L Normal 21.0-32.0 [facility] Comment on above: Performed By: #### L 100.0100, L500.2500 #### [facility] [address] [place], [address] Creatinine [Mass/Vol] 0.83 mg/dL Normal 0.70-1.20 [facility] Comment on above: Performed By: #### L 100.0100, L500.2500 #### [facility] [address] [place], [address] ECRCL 140.25 ml/min Normal 50-250 [facility] Comment on above: Performed By: #### L 100.0100, L500.2500 #### [facility] [address] [place], [address] GAP 10 Normal 5-15 [facility] Comment on above: Performed By: #### L 100.0100, L500.2500 #### [facility] [address] [place], [address] GFR/1.73 sq M.predicted among non-blacks MDRD (S/P/Bld) [Vol rate/Area] 116 mL/min/{1.73_m2} Normal >60 [facility] Comment on above: Result Comment: mL/m in/1.73m2 CKD-EPI Creatinine Equation (2020) Performed By: #### L 100.0100, L500.2500 #### [facility] [address] [place], [address] Glucose [Mass/Vol] 100 mg/dL High 70-99 [facility] Comment on above: Performed By: #### L 100.0100, L500.2500 #### [facility] [address] [place], [address] Potassium [Moles/Vol] 3.8 mmol/L Normal 3.3-5.1 [facility] Comment on above: Performed By: #### L 100.0100, L500.2500 #### [facility] [address] [place], [address] Sodium [Moles/Vol] 137 mmol/L Normal 133-145 [facility] Comment on above: Performed By: #### L 100.0100, L500.2500 #### [facility] [address] [place], [address] Urea nitrogen [Mass/Vol] 16 mg/dL Normal 4-19 [facility] Comment on above: Performed By: #### L 100.0100, L500.2500 #### [facility] [address] [place], [address] Basophil percentageOrdered B y: Ari Walls on 03-16-2025 Basophils/100 WBC (Bld) 0.5 % 0-1 [facility] CBC W/Diff, Automatedon 03-01 Absolute Lymph 2.24 X10 3/uL Normal 0.83-4.51 [facility] Comment on above: Performed By: #### L 100.0100, L500.2500 #### [facility] [address] [place], [address] Absolute Neut 5.2 X10 3/uL Normal 2.0-7.7 [facility] Comment on above: Performed By: #### L 100.0100, L500.2500 #### [facility] [address] [place], [address] Basophils/100 WBC (Bld) 0.5 % Normal 0-1 [facility] Comment on above: Performed By: #### L 100.0100, L500.2500 #### [facility] [address] [place], [address] Eosinophils/100 WBC (Bld) 2.4 % Normal 0-5 [facility] Comment on above: Performed By: #### L 100.0100, L500.2500 #### [facility] [address] [place], [address] Erythrocyte distribution width (RBC) [Ratio] 12.1 % Normal 11.6-14.6 [facility] Comment on above: Performed By: #### L 100.0100, L500.2500 #### [facility] [address] [place], [address] Hematocrit (Bld) [Volume fraction] 41.9 % Normal 40-54 [facility] Comment on above: Performed By: #### L 100.0100, L500.2500 #### [facility] [address] [place], [address] Hemoglobin (Bld) [Mass/Vol] 15.4 g/dL Normal 13.0-16.5 [facility] Comment on above: Performed By: #### L 100.0100, L500.2500 #### [facility] [address] [place], [address] IG% 0.400 Normal 0.0-0.9 [facility] Comment on above: Result Comment: IG% - Immature Granulocytes (promyelocytes, myelocytes and metamyelocytes) > 1% indicates that a LEFT SHIFT is Present. Performed By: #### L 100.0100, L500.2500 #### [facility] [address] [place], [address] Lymphocytes/100 WBC (Bld) 26.5 % Normal 19-41 [facility] Comment on above: Performed By: #### L 100.0100, L500.2500 #### [facility] [address] [place], [address] MCH (RBC) [Entitic mass] 32.4 pg High 27.0-32.0 [facility] Comment on above: Performed By: #### L 100.0100, L500.2500 #### [facility] [address] [place], [address] MCHC (RBC) [Mass/Vol] 36.8 g/dL High 32-36 [facility] Comment on above: Performed By: #### L 100.0100, L500.2500 #### [facility] [address] [place], [address] MCV (RBC) [Entitic vol] 88.0 fL Normal 80-94 [facility] Comment on above: Performed By: #### L 100.0100, L500.2500 #### [facility] [address] [place], [address] Monocytes/100 WBC (Bld) 8.5 % Normal 0-10 [facility] Comment on above: Performed By: #### L 100.0100, L500.2500 #### [facility] [address] [place], [address] Neutrophils/100 WBC (Bld) 61.7 % Normal 47-70 [facility] Comment on above: Performed By: #### L 100.0100, L500.2500 #### [facility] [address] [place], [address] Nucleated RBC (Bld) [#/Vol] 0 10*3/uL Normal 0-5 [facility] Comment on above: Performed By: #### L 100.0100, L500.2500 #### [facility] [address] [place], [address] Platelet mean volume (Bld) [Entitic vol] 9.5 fL Normal 6.2-12.0 [facility] Comment on above: Performed By: #### L 100.0100, L500.2500 #### [facility] [address] [place], [address] Platelets (Bld) [#/Vol] 211 10*3/uL Normal 150-450 [facility] Comment on above: Performed By: #### L 100.0100, L500.2500 #### [facility] [address] [place], [address] RBC (Bld) [#/Vol] 4.76 10*6/uL Normal 4.6-6.[address] [facility] Comment on above: Performed By: #### L 100.0100, L500.2500 #### [facility] [address] [place], [address] RDW SD 38.7 fl Normal 35.1-43.9 [facility] Comment on above: Performed By: #### L 100.0100, L500.2500 #### [facility] [address] [place], [address] WBC (Bld) [#/Vol] 8.5 10*3/uL Normal 4.4-11.0 [facility] Comment on above: Performed By: #### L 100.0100, L500.2500 #### [facility] [address] [place], [address] CELPNLon 03-16-2025 Deam Gliad IgA Abs 4 units Normal 0-19 [facility] Comment on above: Result Comment: Nega tive 0 - 19 Weak Positive 20 - 30 Moderate to Strong Positive >30 Performed By: #### L IP, GFR, CBC, MDW, ANEU, ADIFF, CMP #### [address] [address] Deam Gliad IgG Abs 2 units Normal 0-19 [facility] Comment on above: Result Comment: Nega tive 0 - 19 Weak Positive 20 - 30 Moderate to Strong Positive >30 Performed By: #### L IP, GFR, CBC, MDW, ANEU, ADIFF, CMP #### [address] [address] Endomysial IgA Ab Negative Normal Negative [facility] Comment on above: Performed By: #### L IP, GFR, CBC, MDW, ANEU, ADIFF, CMP #### [address] [address] IgA [Mass/Vol] 184 mg/dL Normal 90-386 [facility] Comment on above: Result Comment: Perf ormed At: [facility] [address] [id number] Doyle Silva PhD Ph:[phone] Performed By: #### L IP, GFR, CBC, MDW, ANEU, ADIFF, CMP #### [facility] [address] [place], [place] [address] tTG IgA <2 Normal 0-3 [facility] Comment on above: Result Comment: Nega tive 0 - 3 Weak Positive 4 - 10 Positive >10 Tissue Transglutaminase (tTG) has been identified as the endomysial antigen. Studies have demonstr- ated that endomysial IgA antibodies have over 99% specificity for gluten sensitive enteropathy. Performed By: #### L IP, GFR, CBC, MDW, ANEU, ADIFF, CMP #### [address] [place], [place] [address] tTG IgG <2 Normal 0-5 [facility] Comment on above: Result Comment: Nega tive 0 - 5 Weak Positive 6 - 9 Positive >9 Performed By: #### L IP, GFR, CBC, MDW, ANEU, ADIFF, CMP #### [address] [place], [place] [address] Carbon dioxide, total [Moles /volume] in Central venous bloodOrdered By: Ari Walls on 03-16-2025 CO2 [Moles/Vol] 21.4 mmol/L 21.0-32.0 [facility] Chloride assayOrdered By: Keith Walls on 03-16-2025 Chloride [Moles/Vol] 105 mmol/L 98-108 [facility] Department Summary on 03-16-2025 Emergency Department Summary [facility] Medical Records Department [address] [place] [address] Emergency Department Summary 03/16/25 MR#: [id number] Acct: [id number] Name: CE BAER II Rep #: [id number] : 1985 39 From: Ari Walls DO PCP: Dr. Elizabeth Argueta, DO Status:DEP ER Location: ED HPI History of Present Illness Chief Complaint: Cellulitis Informant: patient Onset/Context/Timing Onset: Days (5) Context: Gradual Onset Timing: Continuous Quality: "Radiating" Location: Left foot over the fifth toe and proximal metatarsals. Worsened by: Movement Relieved by: Antibiotics Narrative Narrative: Patient presents with redness and swelling to his left foot that has been getting worse over the past 5 days. Patient states he initially went to [facility] and was diagnosed with athlete's foot. Patient states that the cream was not helping. Patient states that he was seen here in the emergency department 2 days ago. Patient states he kept getting sick and had to leave the emergency department. Patient followed up with his primary care physician yesterday and was started on Keflex and Bactrim. Patient states the swelling is gotten worse. Patient admits to some tingling but denies any weakness. Patient describes his pain as "radiating". Patient states it has been constant. Patient states the antibiotics are starting to help with the pain. [facility] Medical History Laceration Obsessive compulsive disorder Depression Bipolar disorder Home Medications ???Medication ???Instructions ???Recorded ???Last Taken ???Type NK 11/28/24 Unknown History Allergy/AdvReac Type Severity Reaction Status Date / Time iodine Allergy Rash Verified 03/16/25 15:38 shellfish derived Allergy Anaphylaxis Verified 03/16/25 15:38 Family History no significant family his Surgical History no surgical history no surgical history Social History Smoking Status: Current every day smoker tobacco type: cigarettes ROS ROS ED Constitutional Constitutional ED: Denies chills or fever(s) Eyes Eyes: Denies blurry vision or change in vision ENT ENT ED: Denies rhinorrhea or sore throat Cardiovascular Cardiovascular: Reports chest pain; Denies palpitations Respiratory/Chest Respiratory/Chest: Reports cough and dyspnea Gastrointestinal Gastrointestinal: Reports nausea and vomiting Genitourinary Genitourinary ED: Denies dysuria or hematuria Musculoskeletal Musculoskeletal: Denies back pain or neck pain Integumentary Reports rash; Denies Abrasions Neurologic Neurologic: Reports headache(s); Denies weakness Allergic/Immunologic Allergic/Immunologic ED: Denies mouth swelling or urticaria EXAM Physical Exam Const Vital Signs: 03/16/25 15:35 Temperature 98.2 F Temperature Source Oral Pulse Rate 90 Respiratory Rate 18 Blood Pressure 145/82 H Blood Pressure Mean 103 Pulse Ox 96 Oxygen Delivery Method Room Air Positive well nourished and well developed General Appearance ED: well developed and NAD HEENT Reports moist mucous membranes Neck supple and no JVD Extremity Extremity Narrative: There is erythema and warmth over the left fifth toe as well as the 3rd, 4th, and 5th metatarsal areas distally. There is an area of small abscess formation in the webspace between the 4th and 5th toes. There is some mild fluctuance. There is no active discharge or drainage. Sensation was intact to light touch in all digits. Capillary refill was less than 2 seconds in all digits. Pedal pulses are equal bilaterally. Neuro oriented x3, CN's II-XII intact bilaterally and no sensory deficits noted Sensorium / Orientation: alert Motor Exam: strength 5/5 throughout Psych mental status grossly normal MDM MDM MDM Narrative Medical decision making narrative: Differential diagnosis includes cellulitis, abscess, and foot infection. Patient had recent x-rays which were negative for any evidence of osteomyelitis. Therefore I do not feel that x-rays need to be repeated at this time. CBC will be obtained to assess for leukocytosis and anemia. Basic metabolic profile will be obtained to assess for electrolyte abnormality and renal function. Lab Data Attestation: I reviewed the patient's lab results. Lab results narrative: CBC was reviewed and was within normal limits. Basic metabolic profile was reviewed and was within normal limits. Labs: Laboratory Results - last 24 hr 03/16/25 16:11 WBC 8.5 RBC 4.76 Hgb 15.4 Hct 41.9 MCV 88.0 MCH 32.4 H MCHC 36.8 H RDW Std Deviation 38.7 RDW Coeff of Nichelle 12.1 Plt Count 211 MPV 9.5 Immature Gran % (Auto) 0.400 Krunal (more content not included)... Normal [facility] Eosinophil percentageOrdered By: Ari Walls on 03-16-2025 Eosinophils/100 WBC (Bld) 2.4 % 0-5 [facility] Erythrocyte distribution wid th (RBC) [Ratio]Ordered By: Ari Walls on 03-16-2025 Erythrocyte distribution width (RBC) [Entitic vol] 38.7 fL 35.1-43.9 [facility] Erythrocyte distribution wid th ratioOrdered By: Ari Walls on 03-16-2025 Erythrocyte distribution width (RBC) [Ratio] 12.1 % 11.6-14.6 [facility] Estimation of creatinine randy aranceOrdered By: Ari Walls on 03-16-2025 Estimated Creatinine Clearance Calc 140.25 ml/min 50-250 [facility] GFR/1.73 sq M.predicted mago g non-blacks MDRD (S/P/Bld) [Vol rate/Area]Ordered By: Ari Walls on 03-16-2025 Estimated GFR (MDRD) Non-Af Amer 116 >60 [facility] Comment on above: mL/min/1.73m2 CKD-EP I Creatinine Equation (2020) Gram stainOrdered By: Ari rodriguez on 03-16-2025 Microscopic observation Gram stain Nom (Unsp spec) [facility] Hematocrit Auto (Bld) [Volum e fraction]Ordered By: Ari Walls on 03-16-2025 Hematocrit (Bld) [Volume fraction] 41.9 % 40-54 [facility] Hemoglobin measurementOrdere d By: Ari Walls on 03-16-2025 Hemoglobin (Bld) [Mass/Vol] 15.4 g/dL 13.0-16.5 [facility] Immature granulocytes/100 WB C Auto (Bld)Ordered By: Ari Walls on 03-16-2025 Immature granulocytes/100 WBC (Bld) 0.400 % 0.0-0.9 [facility] Comment on above: IG% - Immature Granu locytes (promyelocytes, myelocytes and metamyelocytes) > 1% indicates that a LEFT SHIFT is Present. Lymphocytes Auto (Unsp spec) [#/Vol]Ordered By: Ari Walls on 03-16-2025 Lymphocytes (Bld) [#/Vol] 2.24 10*3/uL 0.83-4.51 [facility] Lymphocytes/100 WBC Auto (Un sp spec)Ordered By: Ari Walls on 03-16-2025 Lymphocytes/100 WBC (Bld) 26.5 % 19-41 [facility] MCV (mean corpuscular volume ) determinationOrdered By: Ari Walls on 03-16-2025 MCV (RBC) [Entitic vol] 88.0 fL 80-94 [facility] Mean corpuscular hemoglobin (MCH) determinationOrdered By: Ari Walls on 03-16-2025 MCH (RBC) [Entitic mass] 32.4 pg High 27.0-32.0 [facility] Mean corpuscular hemoglobin concentration (MCHC) determinationOrdered By: Ari Walls on 03-16-2025 MCHC (RBC) [Mass/Vol] 36.8 g/dL High 32-36 [facility] Mean platelet volume determi nationOrdered By: Ari Walls on 03-16-2025 Platelet mean volume (Bld) [Entitic vol] 9.5 fL 6.2-12.0 [facility] Monocyte percentageOrdered B y: Ari Walls on 03-16-2025 Monocytes/100 WBC (Bld) 8.5 % 0-10 [facility] Neutrophil percentageOrdered By: Ari Walls on 03-16-2025 Neutrophils/100 WBC (Bld) 61.7 % 47-70 [facility] Nucleated red blood cell per centageOrdered By: Ari Walls on 03-16-2025 Nucleated RBC/100 WBC (Bld) [Ratio] 0 % 0-5 [facility] Platelet countOrdered By: Keith Walls on 03-16-2025 Platelets (Bld) [#/Vol] 211 10*3/uL 150-450 [facility] Potassium (Unsp spec) [Mass/ Vol]Ordered By: Ari Walls on 03-16-2025 Potassium [Moles/Vol] 3.8 mmol/L 3.3-5.1 [facility] RBC Auto (Bld) [#/Vol]Ordere d By: Ari Walls on 03-16-2025 RBC (Bld) [#/Vol] 4.76 10*6/uL 4.6-6.[address] [facility] Serum creatinine measurement (mass/volume)Ordered By: Ari Walls on 03-16-2025 Creatinine [Mass/Vol] 0.83 mg/dL 0.70-1.20 [facility] Serum glucose measurement (m ass/volume)Ordered By: Ari Walls on 03-16-2025 Glucose [Mass/Vol] 100 mg/dL High 70-99 [facility] Serum or plasma calcium carly urement (mass/volume)Ordered By: Ari Walls on 03-16-2025 Calcium [Mass/Vol] 8.5 mg/dL 7.6-11.0 [facility] Serum or plasma urea nitroge n measurement (mass/volume)Ordered By: Ari Walls on 03-16-2025 Urea nitrogen [Mass/Vol] 16 mg/dL 4-19 [facility] Sodium levelOrdered By: Ari Walls on 03-16-2025 Sodium [Moles/Vol] 137 mmol/L 133-145 [facility] White blood cell (WBC) count Ordered By: Ari Walls on 03-16-2025 WBC (Bld) [#/Vol] 8.5 10*3/uL 4.4-11.0 [facility] CRPon 03-15-2025 C-Reactive Protein 0.7 mg/dL High 0.0-0.3 [facility] Comment on above: Performed By: #### 1 [id number], ESR, TSHR, PBNP, CRP #### [address] [place] [address] ESRon 03-15-2025 Erythrocyte Sed Rate 4 mm/hr Normal 0-15 [facility] Comment on above: Performed By: #### 1 [address], ESR, TSHR, PBNP, CRP #### [place] [address] Emergency Department Summary on 03-15-2025 Emergency Department Summary [facility] Medical Records Department [address] [place] [address] Emergency Department Summary 03/15/25 MR#: [id number] Acct: [id number] Name: CE BAER MELANIE Rep #: [id number] : 1985 39 From: Claude Cortes DO PCP: Dr. Elizabeth Argueta, DO Status:DEP ER Location: ED HPI History of Present Illness Chief Complaint: Lower Extremity Injury Narrative Narrative: Patient is a 39-year-old male past medical history of obsessive-compulsive disorder, bipolar, depression who presents to the emergency department chief complaint of left foot pain and swelling. Patient states that for the last 2 weeks he noted that he has had foot pain and noted that he recently started developing swelling and redness between his 4th and 5th toe on the left foot. He states that he went to [facility] and was diagnosed with athlete's foot and was given a cream to place on his foot. He states that the cream makes the pain worse and is not helping. He states that a friend of his that was a physician was advised him to discontinue using the cream which he did. Patient states that he is having increasing pain therefore came here for further evaluation management. He states that he has a primary care appointment at 2:00 this afternoon. [facility] Medical History Laceration Obsessive compulsive disorder Depression Bipolar disorder Home Medications ???Medication ???Instructions ???Recorded ???Last Taken ???Type NK 11/28/24 Unknown History Allergy/AdvReac Type Severity Reaction Status Date / Time iodine Allergy Rash Verified 03/15/25 04:53 shellfish derived Allergy Anaphylaxis Verified 03/15/25 04:53 Family History no significant family his Social History Smoking Status: Current every day smoker tobacco type: cigarettes ROS ROS ED ROS Narrative Constitutional: Denies any fevers, chills, headaches malaise, dizziness Neurological: Denies numbness, weakness, tingling Musculoskeletal: Complains of left foot pain as noted above Skin: Complains of redness and swelling of the left foot as noted above EXAM Physical Exam Narrative Exam Narrative: General: Patient lying in bed rest comfortably not appear to be acute distress Head: Atraumatic, normocephalic Eyes: PERRL bilateral, EOMI bilateral, no conjunctival injection noted Neck: Soft, supple and trachea midline Cardiovascular: Patient tachycardic with regular rhythm Extremities: DP pulses +2/4 in the bilateral lower extremities, +5/5 strength noted in the bilateral upper and lower extremities Neurological: Patient follow commands knew that he was at [facility] years 2024. Sensation grossly intact in the bilateral lower extremities Skin: Warm, dry, patient has erythema noted to the dorsal aspect of his left foot and swelling between the 4th and 5th digits Const Vital Signs: 03/15/25 04:53 Temperature 97.5 F L Temperature Source Oral Pulse Rate 120 H Respiratory Rate 20 H Blood Pressure 154/86 H Blood Pressure Mean 108 Pulse Ox 96 Oxygen Delivery Method Room Air MDM MDM MDM Narrative Medical decision making narrative: Patient is a 39-year-old male who presents to the emergency department the chief complaint of left foot pain and swelling. On the differential diagnose includes but not limited to left foot cellulitis, abscess, retained foreign body. Once workup is obtained reviewed he will be reevaluated. Patient was offered something for pain however he declined. Patient x-ray of foot reviewed by myself and by radiology which showed small calcific density along the lateral margin of the fifth metatarsal phalangeal joint with considerations including possibility of fracture fragment or possible sesamoid formation correlate clinically. Patient eloped prior to discussing the results and further evaluation. Radiography Diagnostic Testing: Clinical Impression(s) from Imaging Studies Foot X-Ray 03/15/25 05:10 IMPRESSION: Small calcific density along the lateral margin of the 5th metatarsophalangeal joint with considerations including possibility of fracture fragmentation or possible sesamoid formation, clinically correlate. Reading Location: [facility] Discharge Plan Triage Chief Complaint: Lower Extremity Injury ED Provider: Claude Cortes Dx/Rx/DC Orders Clinical Impression: Foot pain, left Prescriptions: No Action NK Primary Care Provider: Elizabeth Argueta Referrals: Care Physician,No Primary [Non-Staff] - Print Language: Nigerien Disposition Disposition: Elopement Discharge Date/Time: 03/15/25 05:53 What to (more content not included)... Normal [facility] Foot min 3 Viewson 5 Foot min 3 Views [facility] Services [address] [place], [place] [address] Foot min 3 Views MR#: [id number] Acct: [id number] Name: CE BAER MELANIE Rep #: [id number] : 1985 M 39 From: Merrill Reyna MD PCP: Dr. Elizabeth Argueta DO Status: REG ER Study: Foot min 3 Views Date of Exam: 03/15/25 Exam# [id number] Ordering Dr: Claude Cortes DO EXAM: Foot minimum three views x-ray CLINICAL HISTORY: Pain between 5th and 4th toes COMPARISON: None available TECHNIQUE: Three views right foot FINDINGS: Small calcific density along the lateral margin of the 5th metatarsophalangeal joint with considerations including possibility of fracture fragmentation or possible sesamoid formation, clinically correlate. No dislocation. No radiopaque foreign body. No periosteal reaction. The joint spaces appear within limits. RAD/Foot min 3 Views IMPRESSION: Small calcific density along the lateral margin of the 5th metatarsophalangeal joint with considerations including possibility of fracture fragmentation or possible sesamoid formation, clinically correlate. Reading Location: [id number] CC: Dr. Elizabeth Argueta, DO; Dr. Claude Cortes, DO Software Quality Test Engineer: Signed Normal [facility] PBNPon 03-15-2025 Natriuretic peptide B (Bld) [Mass/Vol] 102 pg/mL Normal 0-125 [facility] Comment on above: Result Comment: NT-p roBNP results of less than 300 pg/mL effectively rules out acute congestive heart failure with 99% negative predictive value. Performed By: #### L IP, GFR, CBC, MDW, ANEU, ADIFF, CMP #### [address] [place], [place] [address] TSHRon 03-15-2025 TSH Qn 1.54 m[IU]/L Normal 0.36-3.74 [facility] Comment on above: Performed By: #### L IP, GFR, CBC, MDW, ANEU, ADIFF, CMP #### [address] [place], [place] [address] CTPCRon 03-14-2025 C. trachomatis Interp Normal See CT Interp N [facility] Comment on above: Result Comment: C. t rachomatis DNA not detected. Specimen is presumptive negative for C. trachomatis. A negative result does not preclude C. trachomatis infection because results depend on adequate specimen collection, absence of inhibitors, and sufficient DNA to be detected. See CT Interp N Performed By: #### L IP, GFR, CBC, MDW, ANEU, ADIFF, CMP #### [address] [place], [place] [address] C.trachomatis PCR Negative Normal Negative [facility] Comment on above: Result Comment: Mole cular (PCR) assay performed on the Joya Jt 4800 system. Performed By: #### L IP, GFR, CBC, MDW, ANEU, ADIFF, CMP #### [address] [address] Chlam Source Urine Normal [facility] Comment on above: Performed By: #### L IP, GFR, CBC, MDW, ANEU, ADIFF, CMP #### [address] [address] [id number] 03-14-2025 GC PCR Source Urine Normal [facility] Comment on above: Performed By: #### L IP, GFR, CBC, MDW, ANEU, ADIFF, CMP #### [address] [address] N. gonorrhoeae (PCR) Negative Normal Negative [facility] Comment on above: Result Comment: Mole cular (PCR) assay performed on the Joy[employer] Jt 4800 System. Performed By: #### L IP, GFR, CBC, MDW, ANEU, ADIFF, CMP #### [address] [address] N. gonorrhoeae Interp Normal See NG Interp N [facility] Comment on above: Result Comment: N. g onorrhoeae DNA not detected. Specimen is presumptive negative for N. gonorrhoeae. A negative result does not preclude Neisseria gonorrhoeae infection because results depend on adequate specimen collection, absence of inhibitors, and sufficient DNA to be detected. See NG Interp N Performed By: #### L IP, GFR, CBC, MDW, ANEU, ADIFF, CMP #### [address] [address] .Auto Diffon 03-12-2025 Basophil, Absolute 0.1 10 3/mcL Normal 0.0-0.3 [facility] Comment on above: Performed By: #### L IP, GFR, CBC, MDW, ANEU, ADIFF, CMP #### [address] [address] Basophils/100 WBC (Bld) 0.8 % Normal 0.0-2.5 [facility] Comment on above: Performed By: #### L IP, GFR, CBC, MDW, ANEU, ADIFF, CMP #### [address] [address] Eosinophil, Absolute 0.2 10 3/mcL Normal 0.0-0.7 [facility] Comment on above: Performed By: #### L IP, GFR, CBC, MDW, ANEU, ADIFF, CMP #### [address] [address] Eosinophils/100 WBC (Bld) 1.9 % Normal 0.0-6.0 [facility] Comment on above: Performed By: #### L IP, GFR, CBC, MDW, ANEU, ADIFF, CMP #### [address] [address] Lymphocyte, Absolute 2.5 10 3/mcL Normal 0.9-4.3 [facility] Comment on above: Performed By: #### L IP, GFR, CBC, MDW, ANEU, ADIFF, CMP #### [address] [address] Lymphocytes/100 WBC (Bld) 28.4 % Normal 20.0-40.0 [facility] Comment on above: Performed By: #### L IP, GFR, CBC, MDW, ANEU, ADIFF, CMP #### [address] [address] Monocyte, Absolute 0.6 10 3/mcL Normal 0.1-1.4 [facility] Comment on above: Performed By: #### L IP, GFR, CBC, MDW, ANEU, ADIFF, CMP #### [address] [address] Monocytes/100 WBC (Bld) 7.0 % Normal 2.0-13.0 [facility] Comment on above: Performed By: #### L IP, GFR, CBC, MDW, ANEU, ADIFF, CMP #### [address] [address] Neutrophils/100 WBC (Bld) 61.9 % Normal 50.0-75.0 [facility] Comment on above: Performed By: #### L IP, GFR, CBC, MDW, ANEU, ADIFF, CMP #### [address] [address] .GFRon 03-12-2025 Estimated Glomerular Filtration Rate 113 ml/min/1.73sqm Normal [facility] Comment on above: Result Comment: Stages of Chronic Kidney Disease (CKD) Stage Description eGFR(ml/min/1.73 sq.m.) CKD 1 Normal kidney function or >=90 normal kindney function with possible kidney damage (ex. Proteinuria) CKD 2 Kidney damage with mild loss 60-89 of kidney function CKD 3a Mild to moderate loss of kidney 45-59 function CKD 3b Moderate to severe loss of 30-44 of kindey function CKD 4 Severe loss of kidney function 15-29 CKD 5 Kidney failure <15 Note: (go live 2025) the eGFR calculation was updated to the 2020 CKD-EPI creatinine equation without a race factor to calculate the eGFR results. Performed By: #### L IP, GFR, CBC, MDW, ANEU, ADIFF, CMP #### [place] [address] .MDWon 03-12-2025 Monocyte Distribution Width 16.44 Normal 0.00-20.00 [facility] Comment on above: Result Comment: For ED adult patients suspected of sepsis, MDW<=20.0 does not rule out sepsis or risk of sepsis Performed By: #### L IP, GFR, CBC, MDW, ANEU, ADIFF, CMP #### [address] [address] [address] .NEUABSon 03-12-2025 Neutrophil, Absolute 5.4 10 3/mcL Normal 2.3-8.1 [facility] Comment on above: Performed By: #### L IP, GFR, CBC, MDW, ANEU, ADIFF, CMP #### [address] [address] CBCon 03-12-2025 Erythrocyte distribution width (RBC) [Ratio] 13.0 % Normal 11.5-15.5 [facility] Comment on above: Performed By: #### L IP, GFR, CBC, MDW, ANEU, ADIFF, CMP #### [address] [address] Hematocrit (Bld) [Volume fraction] 49.0 % Normal 40.0-52.0 [facility] Comment on above: Performed By: #### L IP, GFR, CBC, MDW, ANEU, ADIFF, CMP #### [address] [address] Hgb 17.4 G/dL Normal 13.0-17.5 [facility] Comment on above: Performed By: #### L IP, GFR, CBC, MDW, ANEU, ADIFF, CMP #### [address] [address] MCH (RBC) [Entitic mass] 32.4 pg Normal 27.0-33.0 [facility] Comment on above: Performed By: #### L IP, GFR, CBC, MDW, ANEU, ADIFF, CMP #### [address] [address] MCHC 35.6 G/dL Normal 32.0-36.0 [facility] Comment on above: Performed By: #### L IP, GFR, CBC, MDW, ANEU, ADIFF, CMP #### [address] [address] MCV (RBC) [Entitic vol] 91.1 fL Normal 81.0-100.0 [facility] Comment on above: Performed By: #### L IP, GFR, CBC, MDW, ANEU, ADIFF, CMP #### [address] [address] Platelet 202 10 3/mcL Normal 150-450 [facility] Comment on above: Performed By: #### L IP, GFR, CBC, MDW, ANEU, ADIFF, CMP #### [place] [id number] Platelet mean volume (Bld) [Entitic vol] 7.8 fL Normal 6.4-10.5 [facility] Comment on above: Performed By: #### L IP, GFR, CBC, MDW, ANEU, ADIFF, CMP #### [address] [address] RBC 5.38 10 6/mcL Normal 4.50-6.00 [facility] Comment on above: Performed By: #### L IP, GFR, CBC, MDW, ANEU, ADIFF, CMP #### [address] [address] WBC 8.7 10 3/mcL Normal 4.5-10.8 [facility] Comment on above: Performed By: #### L IP, GFR, CBC, MDW, ANEU, ADIFF, CMP #### [address] [address] CMPon 03-12-2025 Albumin Level 4.1 G/dL Normal 3.5-5.0 [facility] Comment on above: Performed By: #### L IP, GFR, CBC, MDW, ANEU, ADIFF, CMP #### [place] [phone] Albumin/Globulin [Mass ratio] 1.3 {ratio} Normal 1.1-2.5 [facility] Comment on above: Performed By: #### L IP, GFR, CBC, MDW, ANEU, ADIFF, CMP #### [address] [address] ALP [Catalytic activity/Vol] 58 U/L Normal 40-135 [facility] Comment on above: Performed By: #### L IP, GFR, CBC, MDW, ANEU, ADIFF, CMP #### [place] [address] ALT [Catalytic activity/Vol] 19 U/L Normal 16-63 [facility] Comment on above: Performed By: #### L IP, GFR, CBC, MDW, ANEU, ADIFF, CMP #### [address] [address] AST [Catalytic activity/Vol] 24 U/L Normal 10-40 [facility] Comment on above: Performed By: #### L IP, GFR, CBC, MDW, ANEU, ADIFF, CMP #### [address] [address] Bili Total 0.4 mg/dL Normal 0.2-1.0 [facility] Comment on above: Result Comment: Use of this assay is not recommended for patients undergoing treatment with eltrombopag due to the potential for falsely elevated results. Performed By: #### L IP, GFR, CBC, MDW, ANEU, ADIFF, CMP #### [place] [phone] BUN/Creatinine Ratio 12 ratio Normal 7-27 [facility] Comment on above: Performed By: #### L IP, GFR, CBC, MDW, ANEU, ADIFF, CMP #### [address] [address] Calcium [Mass/Vol] 8.8 mg/dL Normal 8.4-10.2 [facility] Comment on above: Performed By: #### L IP, GFR, CBC, MDW, ANEU, ADIFF, CMP #### [address] [address] Chloride [Moles/Vol] 104 mmol/L Normal 98-107 [facility] Comment on above: Performed By: #### L IP, GFR, CBC, MDW, ANEU, ADIFF, CMP #### [address] [address] CO2 [Moles/Vol] 27 mmol/L Normal 22-29 [facility] Comment on above: Performed By: #### L IP, GFR, CBC, MDW, ANEU, ADIFF, CMP #### [address] [address] Creatinine [Mass/Vol] 0.89 mg/dL Normal 0.70-1.30 [facility] Comment on above: Result Comment: Test ing performed on Siemens Dimension EXL analyzer using a modified kinetic Sybil technique. Performed By: #### L IP, GFR, CBC, MDW, ANEU, ADIFF, CMP #### [address] [address] Electrolyte Balance 7.0 mEq/L Normal 4.0-15.[address] [facility] Comment on above: Performed By: #### L IP, GFR, CBC, MDW, ANEU, ADIFF, CMP #### [address] [address] Globulin 3.1 G/dL Normal 1.5-3.8 [facility] Comment on above: Performed By: #### L IP, GFR, CBC, MDW, ANEU, ADIFF, CMP #### [address] [address] Glucose [Mass/Vol] 115 mg/dL High 70-105 [facility] Comment on above: Performed By: #### L IP, GFR, CBC, MDW, ANEU, ADIFF, CMP #### [address] [address] Potassium [Moles/Vol] 4.1 mmol/L Normal 3.5-5.1 [facility] Comment on above: Performed By: #### L IP, GFR, CBC, MDW, ANEU, ADIFF, CMP #### [address] [address] Sodium [Moles/Vol] 138 mmol/L Normal 136-145 [facility] Comment on above: Performed By: #### L IP, GFR, CBC, MDW, ANEU, ADIFF, CMP #### [address] [address] Total Protein 7.2 G/dL Normal 6.4-8.2 [facility] Comment on above: Performed By: #### L IP, GFR, CBC, MDW, ANEU, ADIFF, CMP #### [address] [address] Urea nitrogen [Mass/Vol] 11 mg/dL Normal 7-18 [facility] Comment on above: Performed By: #### L IP, GFR, CBC, MDW, ANEU, ADIFF, CMP #### [facility] [address] [place], [place] [address] CT ABD/PELVIS W/ IV CONTRAST ONLYon 03-12-2025 CT ABD/PELVIS W/ IV CONTRAST ONLY ORIGINAL EXAMINATION: CT OF THE ABDOMEN AND PELVIS WITH CONTRAST03/12/2025 4:[address] ABDOMEN/PELVIS WITH CONTRAST Multiple axial images were obtained with coronal and sagittal reconstructions. CLINICAL INFORMATION: TECHNIQUE: CT of the abdomen and pelvis was performed with the administration of intravenous contrast. Multiplanar reformatted images are provided for review. Automated exposure control, iterative reconstruction, and/or weight based adjustment of the mA/kV was utilized to reduce the radiation dose to as low as reasonably achievable. COMPARISON: None HISTORY: ORDERING SYSTEM PROVIDED HISTORY: Reason for Exam: abdominal pain, rectal [id number]^ FINDINGS: There is some motion artifact in the abdomen slightly limiting exam. Lung bases/lower mediastinum: Unremarkable. Liver: Subcentimeter hypodensity in the left hepatic lobe, too small to further characterize but likely represents a cyst. Otherwise, unremarkable. Gallbladder/bile ducts: Unremarkable. Pancreas: Unremarkable. Spleen: Unremarkable. Adrenal glands: Unremarkable. Kidney/ureter/bladder: Unremarkable. Bowel: No dilated bowel or evidence of obstruction. The appendix is normal. Free air/Free Fluid: Unremarkable. Reproductive organs: Unremarkable prostate gland. The scrotum is not visualized, inferior to the field of view.. Vascular/lymph nodes: No aortic aneurysm or lymphadenopathy by size criteria. Bones/soft tissues: There are bilateral chronic-appearing L5 pars defects. There is grade 2 anterolisthesis of L5 on S1; at L5-S1, there is disc space height loss and endplate sclerosis with vacuum disc phenomenon, compatible with degenerative disc disease. No evidence of acute-appearing fracture. IMPRESSION: No evidence of an acute intra-abdominal process. Bilateral L5 pars defects with grade 2 anterolisthesis of L5 on S1 and resultant degenerative change. Interpreted by: Villa Ching Preliminary Report By: Villa Ching Electronically signed By Villa Ching Dictated Date: 03/12/2025 4:19:05 PM Prelim Date: 03/12/2025 4:24:44 PM Sign Date: 03/12/2025 4:24:44 PM Ordering Provider: ALLIE Walton [facility] LIPon 03-12-2025 Lipase Level 93 U/L High 16-77 [facility] Comment on above: Performed By: #### L IP, GFR, CBC, MDW, ANEU, ADIFF, CMP #### [address] [address] UAon 03-12-2025 Color (U) Yellow Normal [facility] Comment on above: Performed By: #### L IP, GFR, CBC, MDW, ANEU, ADIFF, CMP #### [address] [address] Glucose (U) [Mass/Vol] Negative Normal Negative [facility] Comment on above: Performed By: #### L IP, GFR, CBC, MDW, ANEU, ADIFF, CMP #### [address] [address] Ketones Ql (U) Negative Normal Negative [facility] Comment on above: Performed By: #### L IP, GFR, CBC, MDW, ANEU, ADIFF, CMP #### [address] [address] UA Appear Clear Normal Clear [facility] Comment on above: Performed By: #### L IP, GFR, CBC, MDW, ANEU, ADIFF, CMP #### [address] [address] UA Blood Trace Abnormal Negative [facility] Comment on above: Performed By: #### L IP, GFR, CBC, MDW, ANEU, ADIFF, CMP #### [address] [address] UA Leuk Est Negative Normal Negative [facility] Comment on above: Performed By: #### L IP, GFR, CBC, MDW, ANEU, ADIFF, CMP #### [address] [address] UA Nitrite Negative Normal Negative [facility] Comment on above: Performed By: #### L IP, GFR, CBC, MDW, ANEU, ADIFF, CMP #### [address] [address] UA pH 5.5 Normal 5.0 - 8.0 [facility] Comment on above: Performed By: #### L IP, GFR, CBC, MDW, ANEU, ADIFF, CMP #### [address] [address] UA Protein Negative Normal Negative [facility] Comment on above: Performed By: #### L IP, GFR, CBC, MDW, ANEU, ADIFF, CMP #### [address] [address] UA Spec Grav 1.010 Abnormal 1.015-1.025 [facility] Comment on above: Performed By: #### L IP, GFR, CBC, MDW, ANEU, ADIFF, CMP #### [address] [address] UA Specimen Type Clean Catch Normal [facility] Comment on above: Performed By: #### L IP, GFR, CBC, MDW, ANEU, ADIFF, CMP #### [address] [address] UA Urobilinogen 0.2 E.U./dL Normal 0.2-1.0 [facility] Comment on above: Performed By: #### L IP, GFR, CBC, MDW, ANEU, ADIFF, CMP #### [address] [address] Urobilinogen (U) [Mass/Vol] Negative Normal Negative [facility] Comment on above: Performed By: #### L IP, GFR, CBC, MDW, ANEU, ADIFF, CMP #### [address] [address] US SCROTUM CONTENTSon 2024 US SCROTUM CONTENTS ORIGINAL EXAMINATION: ULTRASOUND OF THE SCROTUM/TESTICLES WITH COLOR DOPPLER FLOW EVALUATION03/12/2025 4:46 pm Scrotal Ultrasound with Duplex Doppler evaluation TECHNIQUE: Duplex ultrasound using B-mode/lyons scaled imaging, Doppler spectral analysis and color flow Doppler was obtained of the testicles. Grayscale, color Doppler and spectral waveform evaluation COMPARISON: CT abdomen/pelvis 03/12/2025 HISTORY: ORDERING SYSTEM PROVIDED HISTORY: Reason for Exam: testicular pain, hernia or trauma, FINDINGS: Right testicle: 4.1 x 2.9 x 2.3 cm Left testicle: 4 x 2.8 x 2.1 cm Testicular echotexture is uniform without evidence of a suspicious intratesticular mass. Multiple extratesticular unilocular cysts are present along the right epididymal head with the largest measuring 2.6 cm with internal echoes. The left epididymis appears unremarkable. No hyperemia.. Few anechoic tubular structures are present adjacent to the bilateral teste with slight increase in caliber and reflux with Valsalva. Color Doppler flow is seen in both testicles in a symmetric fashion. Spectral waveform analysis of the testicles shows arterial and venous waveforms in both testicles. IMPRESSION: No evidence of testicular torsion or suspicious intratesticular mass. Multiple right-sided extra testicular unilocular cysts with internal echoes which favor a spermatocele over epididymal cyst. Mild bilateral varicoceles. I have reviewed the resident's preliminary report and agree with findings and impression. Interpreted by: Villa Ching Preliminary Report By: Lyndsay Guo Electronically signed By Villa Ching Dictated Date: 03/12/2025 4:49:15 PM Prelim Date: 03/12/2025 5:28:09 PM Sign Date: 03/12/2025 5:28:09 PM Ordering Provider: [facility] XR CHEST 1 VIEWon 03-12-2025 XR CHEST 1 VIEW ORIGINAL EXAMINATION: ONE XRAY VIEW OF THE CHEST03/12/2025 4:12 pm CHEST ONE VIEW AP/PA COMPARISON: None HISTORY: ORDERING SYSTEM PROVIDED HISTORY: Reason for Exam: [id number]^ FINDINGS: Lines/Tubes: None Lungs: No evidence of a focal consolidation, pneumothorax, or pleural effusion. Heart/Mediastinum: Within normal limits of size. Bones/Soft Tissues: No acute fractures are identified. IMPRESSION: No evidence of an acute cardiopulmonary process. Interpreted by: Villa Ching Preliminary Report By: Villa Ching Electronically signed By Villa Ching Dictated Date: 03/12/2025 4:17:50 PM Prelim Date: 03/12/2025 4:18:34 PM Sign Date: 03/12/2025 4:18:34 PM Ordering Provider: [facility] XR CHEST 2V FRONTAL/LATon XR CHEST 2V FRONTAL/LAT * * *Final Report* * * DATE OF EXAM: Jan 13 2025 7:01PM WOX [id number] - XR CHEST 2V FRONTAL/LAT / PROCEDURE REASON: Chronic cough * * * * Physician Interpretation * * * * EXAMINATION: CHEST RADIOGRAPH (2 VIEW FRONTAL and LATERAL) CLINICAL HISTORY: Chronic cough MQ: XC2_6 EXAM DATE/TIME: 01/13/2025 7:01 PM COMPARISON: 11/13/2022 RESULT: Lines, tubes, and devices: None. Lungs and pleura: No consolidation. No lung mass. No pleural effusion. No pneumothorax. Cardiomediastinal silhouette: Normal cardiomediastinal silhouette. Bones and soft tissues: Unremarkable. IMPRESSION: No acute radiographic abnormality. Software Quality Test Engineer: RIGOBERTO Transcribe Date/Time: Jan 13 2025 7:11P Dictated by : JENNIFER OBANDO MD This examination was interpreted and the report reviewed and electronically signed by: JENNIFER OBANDO MD on Jan 13 2025 7:11PM EST [id number] Normal [facility] XR Chest PA and Lateralon IMPRESSION: No acute radiographic abnormality. Software Quality Test Engineer: [facility] Transcribe Date/Time: Jan 13 2025 7:11P Dictated by : JENNIFER OBANDO MD This examination was interpreted and the report reviewed and electronically signed by: JENNIFER OBANDO MD on Jan 13 2025 7:11PM EST DIVISION OF RADIOLOGY * * *Final Report* * * DATE OF EXAM: Jan 13 2025 7:01PM WOX [id number] - XR CHEST 2V FRONTAL/LAT / PROCEDURE REASON: Chronic cough * * * * Physician Interpretation * * * * EXAMINATION: CHEST RADIOGRAPH (2 VIEW FRONTAL & LATERAL) CLINICAL HISTORY: Chronic cough MQ: XC2_6 EXAM DATE/TIME: 01/13/2025 7:01 PM COMPARISON: 11/13/2022 RESULT: Lines, tubes, and devices: None. Lungs and pleura: No consolidation. No lung mass. No pleural effusion. No pneumothorax. Cardiomediastinal silhouette: Normal cardiomediastinal silhouette. Bones and soft tissues: Unremarkable. DIVISION OF RADIOLOGY Provider, Ccgabriel Davenportlissett kapoor Weidman - 01/13/2025 * * *Final Report* * * DATE OF EXAM: Jan 13 2025 7:01PM WOX [id number] - XR CHEST 2V FRONTAL/LAT / PROCEDURE REASON: Chronic cough * * * * Physician Interpretation * * * * EXAMINATION: CHEST RADIOGRAPH (2 VIEW FRONTAL & LATERAL) CLINICAL HISTORY: Chronic cough MQ: XC2_6 EXAM DATE/TIME: 01/13/2025 7:01 PM COMPARISON: 11/13/2022 RESULT: Lines, tubes, and devices: None. Lungs and pleura: No consolidation. No lung mass. No pleural effusion. No pneumothorax. Cardiomediastinal silhouette: Normal cardiomediastinal silhouette. Bones and soft tissues: Unremarkable. IMPRESSION IMPRESSION: No acute radiographic abnormality. Software Quality Test Engineer: RIGOBERTO Transcribe Date/Time: Jan 13 2025 7:11P Dictated by : JENNIFER OBANDO MD This examination was interpreted and the report reviewed and electronically signed by: JENNIFER OBANDO MD on Jan 13 2025 7:11PM [facility] Radiology Study observation (narrative) [facility] XR Chest PA and LateralOrder ed By: Ccf Provider on 01-13-2025 [facility] BLADDER SCANon 01-12-2025 51ml [facility] Bacteria Ur Culton 5 Bacteria identified Cx Nom (U) CULTURE, URINE: No growth (<1,000 CFU/ml) Normal [facility] Comment on above: Performed By: #### 6 30-4 #### [facility] CLIA [id number] [facility] [place] [address] [place] CNOVon 01-12-2025 CNOV Office Visit (URCANT ) ----- CE BAER II ([id number]) 1985 M Date Time Provider Department 01/12/25 4:00 PM CE WOOD During your visit today, we recorded the following information about you: Weight Height 95.3 kg 1.753 m Ce Wood MD 01/12/2025 4:25 PM Signed [facility] NEW PATIENT ENCOUNTER Consultation requested by Dr. coughlin for an opinion regarding freq/R test pain. My final recommendations will be communicated back to the requesting physician by way of shared Medical record or letter to requesting physician via [place] mail. HISTORY OF PRESENT ILLNESS: Patient presents with: Consult: Here for abdominal pain,groin pain, feels like he is unable to empty at times. He helped a friend move in October he felt like he had an umbilical hernia. He is having frequency little amounts. Blood in stools. Ce Baer II is a 39 year old male no hematuria/fever But new in last 3 weeks noct was 0x, now 5x, urge and day q 2-3hr, small voids, No prior stones, but all this started after helping friend move, plan ct a/p , bactrim 7d, ibuprofen 7d, See pcp for hematochezia Pvr 51cc UA(-) Exam--R tender enlarged epidid, B test normal and no hernia B Review of Systems LAB No results found for: "PSA", "PSASC" Creatinine Date Value Ref Range Status 03/28/2022 0.87 0.73 - 1.22 mg/dL Final No results found for: "UGLUCPOC", "UBILIPOC", "UKETONPOC", "USGPOC", "UHBPOC", "UPHPOC", "UPROPOC", "UUROPOC", "UNITPOC", "UWBCPOC", "UCOLPOC", "UCLARPOC"] MEDICATIONS fexofenadine (VIVI ALLERGY) 180 mg tablet Take 1 tablet by mouth once daily. triamcinolone acetonide (NASACORT) 55 mcg nasal inhaler Use 2 Sprays in the nose once daily. HISTORIES PAST MEDICAL HISTORY Diagnosis Date Adenomatous colon polyp Bipolar 1 disorder (HCC) 07/21/2019 Depression Headache History of alcohol use disorder 2018 History of substance abuse (HCC) 2005 Hypertension 07/20/2019 PAST SURGICAL HISTORY Procedure Laterality Date COLONOSCOPY 04/02/2022 EGD 04/02/2022 FAMILY HISTORY Problem Relation Age of Onset Psoriasis Mother Systemic Lupus Erythematosus Mother Diabetes Father Hypertension Father Parkinsonism Father post head injury Seizures Father post head injury Systemic Lupus Erythematosus Sister Hypertension Sister No Known Problems Brother Diabetes Maternal Grandmother Liver Disease Maternal Grandmother Diabetes Maternal Grandfather Diabetes Paternal Grandmother Liver Disease Paternal Grandmother Diabetes Paternal Grandfather Liver Disease Paternal Grandfather Colon Cancer No Family History SOCIAL HISTORY Social History Tobacco Use Smoking status: Every Day Current packs/day: 1.00 Average packs/day: 1 pack/day for 12.0 years (12.0 ttl pk-yrs) Types: Cigarettes Smokeless tobacco: Never Vaping Use Vaping status: Never Used Substance Use Topics Alcohol use: Not Currently Alcohol/week: 42.0 standard drinks of alcohol Types: 42 Cans of Beer (12oz) per week Comment: in recovery since 2018 Drug use: Not Currently Types: Marijuana, Narcotics Comment: quit age 20. Ht 175.3 cm (5' 9") Wt 95.3 kg (210 lb) BMI 31.01 kg/m? Physical Exam ASSESSMENT AND PLAN ASSESSMENT/PLAN: 1. Frequent urination - ICD9: 788.41, ICD10: R35.0 (primary diagnosis) ? Uti vs stone, plan ct and bactrim ds - BLADDER SCAN 2. Epididymo-orchitis - ICD9: 604.90, ICD10: N45.3 Reactive post lifting moving, typical, bactrim also 3. Renal stones - ICD9: 592.0, ICD10: N20.0 - CT FLANK WO IVCON 4. Hypertrophy of prostate with urinary obstruction - ICD9: 600.01, 599.69, ICD10: N40.1, N13.8 monitor 5. Incomplete bladder emptying - ICD9: 788.21, ICD10: R33.9 6. Recurrent UTI - ICD9: 599.0, ICD10: N39.0 Send c+s. Bactrim 7d Ce Wood MD This note was partially created using voice recognition software and is inherently subject to errors including those of syntax and "sound-alike" substitutions which may escape proofreading. In such instances, original meaning may be extrapolated by contextual derivation. Allergies As of Date: 01/12/2025 Noted Allergy Reaction IODINE 03/07/2014 2 - Rash SHELLFISH DERIVED 06/29/2019 14 - Other: See Comments Date Reviewed: 01/12/2025 Reviewed by: Kenna Fofana MA - Fully Assessed Reason for Visit: Consult [173] Cmt: Here for abdominal pain,groin pain, feels like he is unable to empty at times. He helped a friend move in October he felt like he had an umbilical hernia. He is having frequency little amounts. Blood in stools. Primary Visit Diagnosis:Frequent urination [R35.0] Other Visit Diagnoses:Epididymo-orchi tis [N45.3] Renal stones [N20.0] Hypertrophy of prostate with urinary obstruction [N40.1, N13.8] Incomplete bladder emptying [R33.9] Recurrent UTI [N39.0] Order(s):BLADDER SCAN [936 (more content not included)... Normal [facility] Emergency Department Summary on 11-28-2024 Emergency Department Summary [facility] Medical Records Department [address] [place] [address] Emergency Department Summary 11/28/24 MR#: [id number] Acct: [id number] Name: CE BAER II Rep #: [id number] : 1985 39 From: Harris Aviles DO PCP: Care Physician,No Primary Status:DEP ER Location: ED HPI History of Present Illness Chief Complaint: Laceration Narrative Narrative: 39-year-old male presents with a laceration to his left index finger. He was cutting a bagel with a bread knife when it slipped and cut his finger. Bleeding is controlled. Last tetanus unknown. [facility] Medical History (Updated 11/28/24 @ 11:19 by MISAEL Daniel) Laceration Obsessive compulsive disorder Depression Bipolar disorder Home Medications ???Medication ???Instructions ???Recorded ???Last Taken ???Type NK 11/28/24 Unknown History Allergy/AdvReac Type Severity Reaction Status Date / Time iodine Allergy Rash Verified 11/28/24 10:26 shellfish derived Allergy Anaphylaxis Verified 11/28/24 10:26 Social History Smoking Status: Current every day smoker tobacco type: cigarettes ROS ROS ED ROS Narrative Neuro: Negative for motor/sensory dysfunction. Skin: Positive for laceration. Musc: Negative for joint pain, swelling. EXAM Physical Exam Narrative Exam Narrative: CONST: Patient sitting in no acute distress. EYES: Normal inspection. SKIN: 1.5 cm linear laceration left index finger on the radial aspect of the PIP joint to the level of the subcutaneous tissue. There is no visible tendon. Full range of motion of the left hand and digits, normal motor and sensory function in median radial ulnar distributions, 2+ radial pulse and brisk cap refill. There is no active bleeding, no foreign body. NEURO: Alert and answering questions appropriately. PSYCH: Normal affect. Const Vital Signs: 11/28/24 10:25 Temperature 96.7 F L Temperature Source Temporal Pulse Rate 59 L Respiratory Rate 20 H Blood Pressure 141/87 H Blood Pressure Mean 105 Pulse Ox 100 Oxygen Delivery Method Room Air Physical Exam Const Vital Signs: 11/28/24 10:25 Temperature 96.7 F L Temperature Source Temporal Pulse Rate 59 L Respiratory Rate 20 H Blood Pressure 141/87 H Blood Pressure Mean 105 Pulse Ox 100 Oxygen Delivery Method Room Air PROC Procedures Lacerations Left index finger: Length: 0.59 in Depth: Skin Shape: Linear Prep: Sterile Conditions Laceration repair: Irrigated and Lidocaine Irrigated (ml): 200 Number of Sutures/Meridian: 3 Suture Information: Ethilon and 5-0 [facility] Narrative Medical decision making narrative: Patient has a 1.5 cm laceration to his left index finger. He is neurovascularly intact and has no tendon injury. There is no indication for x-rays. See procedure note???it was closed with 3 simple erupted sutures. Tetanus updated. Wound care instructions given. Discharged home. [facility] Narrative Medical decision making narrative: Patient has a 1.5 cm laceration to his left index finger. He is neurovascularly intact and has no tendon injury. There is no indication for x-rays. See procedure note???it was closed with 3 simple erupted sutures. Tetanus updated. Wound care instructions given. Discharged home. I have personally performed a face to face assessment of the patient and have reviewed the BRET Note. I performed a substantive portion of the visit including all aspects of the following. My gillette findings include: History is finger laceration from knife while cutting a bagel. Bleeding controlled. Exam is there is a 1.5 cm linear laceration of the left index finger. I do not appreciate tendon or neurovascular deficits. Bleeding is controlled. Medical Decison Making local wound care by physician clinical lab assistant. Please see their note. Stitches to be removed 7 to 10 days local wound care discussed History Record Review Discussion w/independent historian: Patient Discharge Plan Triage Chief Complaint: Laceration ED Midlevel Provider: Elizabeth Bangura ED Provider: Harris Aviles Dx/Rx/DC Orders Clinical Impression: Laceration of left index finger Instructions: ED Laceration Extremity Prescriptions: No Action NK Primary Care Provider: Care Physician,No Primary Referrals: Care Physician,No Primary [Primary Care Provider] - Activity Restrictions/Additional Instructions: Keep clean and have stitches removed in 1 week. Return if you develop any signs of infection like redness, swelling, pus, fever or increased pain. Print Language: Nigerien Disposition Disposition: Home, Self Care Discharge Date/Time: 11/28/24 11:28 What to do if you have Problems (more content not included)... Normal [facility] XR CHEST 2V FRONTAL/LATon [facility] XR Chest PA and Lateralon IMPRESSION: No acute radiographic abnormality. Software Quality Test Engineer: PSCB Transcribe Date/Time: Nov 13 2022 11:03A Dictated by : ALIE HENNESSY DO This examination was interpreted and the report reviewed and electronically signed by: ALIE HENNESSY DO on Nov 13 2022 11:03AM [facility] [place] DIVISION OF RADIOLOGY * * *Final Report* * * DATE OF EXAM: Nov 13 2022 11:00AM WOX 5291 - XR CHEST 2V FRONTAL/LAT / PROCEDURE REASON: Suspected COVID-19 virus infection * * * * Physician Interpretation * * * * EXAMINATION: CHEST RADIOGRAPH (2 VIEW FRONTAL & LATERAL) CLINICAL HISTORY: Suspected COVID-19 virus infection MQ: XC2_6 EXAM DATE/TIME: 11/13/2022 11:00 AM COMPARISON: 05/28/2019 RESULT: Lines, tubes, and devices: None. Lungs and pleura: No consolidation. No lung mass. No pleural effusion. No pneumothorax. Cardiomediastinal silhouette: Normal cardiomediastinal silhouette. Bones and soft tissues: Unremarkable. DIVISION OF RADIOLOGY Provider, Cc Jackie Carter - 11/13/2022 * * *Final Report* * * DATE OF EXAM: Nov 13 2022 11:00AM WOX 5291 - XR CHEST 2V FRONTAL/LAT / PROCEDURE REASON: Suspected COVID-19 virus infection * * * * Physician Interpretation * * * * EXAMINATION: CHEST RADIOGRAPH (2 VIEW FRONTAL & LATERAL) CLINICAL HISTORY: Suspected COVID-19 virus infection MQ: XC2_6 EXAM DATE/TIME: 11/13/2022 11:00 AM COMPARISON: 05/28/2019 RESULT: Lines, tubes, and devices: None. Lungs and pleura: No consolidation. No lung mass. No pleural effusion. No pneumothorax. Cardiomediastinal silhouette: Normal cardiomediastinal silhouette. Bones and soft tissues: Unremarkable. IMPRESSION IMPRESSION: No acute radiographic abnormality. Software Quality Test Engineer: RIGOBERTO Transcribe Date/Time: Nov 13 2022 11:03A Dictated by : ALIE HENNESSY DO This examination was interpreted and the report reviewed and electronically signed by: ALIE HENNESSY DO on Nov 13 2022 11:03AM EST [facility] Radiology Study observation (narrative) [facility] XR Chest PA and LateralOrder ed By: Ccf Provider on 11-13-2022 [facility] No Panel Informationon 04-02 [facility] Vital Signs Date Time Vital Sign Value Performing Clinician Facility 10-06-2025 01:00-0500 Heart rate 73 /min Roberto Che MD Work Phone: [facility] 10-06-2025 01:00-0500 Respiratory rate 17 /min Roberto Che MD Work Phone: [facility] 10-06-2025 01:00-0500 SaO2% (BldA) [Mass fraction] 96 % Roberto Che MD Work Phone: [facility] 10-06-2025 01:00-0500 Systolic blood pressure 138 mm[Hg] Roberto Che MD Work Phone: [facility] 10-05-2025 20:58-0500 Body temperature 98.1 [degF] Roberto Che MD Work Phone: [facility] 10-05-2025 10:37-0500 Body height 177.8 cm Joy Will MD Work Phone: [facility] 10-05-2025 10:37-0500 Body mass index (BMI) [Ratio] 32.86 kg/m2 Joy Will MD Work Phone: [facility] 10-05-2025 10:37-0500 Body weight 103.87 kg Joy Will MD Work Phone: [facility] 10-05-2025 10:37-0500 Diastolic blood pressure 93 mm[Hg] Joy Will MD Work Phone: [facility] 10-05-2025 10:37-0500 Heart rate 83 /min Joy Will MD Work Phone: [facility] 10-05-2025 10:37-0500 Systolic blood pressure 135 mm[Hg] Joy Will MD Work Phone: [facility] 09-29-2025 17:17-0400 Diastolic blood pressure 89 mm[Hg] Garth Aguilar DO Work Phone: [facility] 09-29-2025 17:17-0400 Heart rate 67 /min Garth Aguilar DO Work Phone: [facility] 09-29-2025 17:17-0400 Respiratory rate 18 /min Garth Aguilar DO Work Phone: [facility] 09-29-2025 17:17-0400 SaO2% (BldA) [Mass fraction] 96 % Garth Aguilar DO Work Phone: [facility] 09-29-2025 17:17-0400 Systolic blood pressure 139 mm[Hg] Garth Aguilar DO Work Phone: [facility] 09-29-2025 14:12-0400 Body height 175.3 cm Garth Aguilar DO Work Phone: [facility] 09-29-2025 14:12-0400 Body mass index (BMI) [Ratio] 35.44 kg/m2 Garth Aguilar DO Work Phone: [facility] 09-29-2025 14:12-0400 Body temperature 99 [degF] Garth Aguilar DO Work Phone: [facility] 09-29-2025 14:12-0400 Body weight 108.86 kg Garth Aguilar DO Work Phone: [facility] 07-29-2025 13:23-0400 Body height 175.3 cm Carmen Hughes MD Work Phone: [facility] 07-29-2025 13:23-0400 Body mass index (BMI) [Ratio] 31.79 kg/m2 Carmen Hughes MD Work Phone: [facility] 07-29-2025 13:23-0400 Body temperature 97.9 [degF] Carmen Hughes MD Work Phone: [facility] 07-29-2025 13:23-0400 Body weight 97.66 kg Carmen Hughes MD Work Phone: [facility] 07-29-2025 13:23-0400 Diastolic blood pressure 72 mm[Hg] Carmen Hughes MD Work Phone: [facility] 07-29-2025 13:23-0400 Heart rate 65 /min Carmen Hughes MD Work Phone: [facility] 07-29-2025 13:23-0400 SaO2% (BldA) [Mass fraction] 98 % Carmen Hughes MD Work Phone: [facility] 07-29-2025 13:23-0400 Systolic blood pressure 137 mm[Hg] Carmen Hughes MD Work Phone: [facility] 07-28-2025 13:20-0400 Body height 174 cm Kobi Short MD Work Phone: [facility] 07-28-2025 13:20-0400 Body mass index (BMI) [Ratio] 32.07 kg/m2 Kobi Short MD Work Phone: [facility] 07-28-2025 13:20-0400 Body weight 97.07 kg Kobi Short MD Work Phone: [facility] 07-28-2025 13:20-0400 Heart rate 68 /min Kobi Short MD Work Phone: [facility] 07-18-2025 23:30-0400 Diastolic blood pressure 81 mm[Hg] Chloé Ruggiero DO Work Phone: [facility] 07-18-2025 23:30-0400 Heart rate 56 /min Chloé Ruggiero DO Work Phone: [facility] 07-18-2025 23:30-0400 Respiratory rate 18 /min Chloé Ruggiero DO Work Phone: [facility] 07-18-2025 23:30-0400 SaO2% (BldA) [Mass fraction] 94 % Chloé Ruggiero DO Work Phone: [phone] [place] [address] 07-18-2025 23:30-0400 Systolic blood pressure 120 mm[Hg] Chloé Ruggiero DO Work Phone: [facility] 07-18-2025 20:29-0400 Body temperature 98.1 [degF] Chloé Ruggiero DO Work Phone: [facility] 07-18-2025 20:28-0400 Body height 175.3 cm Chloé Ruggiero DO Work Phone: [facility] 07-18-2025 20:28-0400 Body mass index (BMI) [Ratio] 32.34 kg/m2 Chloé Ruggiero DO Work Phone: [facility] 07-18-2025 20:28-0400 Body weight 99.34 kg Chloé Ruggiero DO Work Phone: [facility] 07-11-2025 08:48-0400 Body height 175.3 cm Joycelyn Ariza MD Work Phone: [facility] [employer] 07-11-2025 08:48-0400 Body mass index (BMI) [Ratio] 32.34 kg/m2 Joycelyn Ariza MD Work Phone: [facility] [employer] 07-11-2025 08:48-0400 Body weight 99.34 kg Joycelyn Ariza MD Work Phone: [facility] [employer] 07-11-2025 08:48-0400 Diastolic blood pressure 86 mm[Hg] Joycelyn Ariza MD Work Phone: [facility] [employer] 07-11-2025 08:48-0400 Heart rate 60 /min Joycelyn Ariza MD Work Phone: [facility] [employer] 07-11-2025 08:48-0400 Respiratory rate 18 /min Joycelyn Ariza MD Work Phone: [facility] [employer] 07-11-2025 08:48-0400 SaO2% (BldA) [Mass fraction] 98 % Joycelyn Ariza MD Work Phone: [facility] [employer] 07-11-2025 08:48-0400 Systolic blood pressure 138 mm[Hg] Joycelyn Ariza MD Work Phone: [facility] [employer] 07-04-2025 13:04-0400 Body height 175.3 cm Hardik Anna MD Work Phone: [facility] [employer] 07-04-2025 13:04-0400 Body mass index (BMI) [Ratio] 32.25 kg/m2 Hardik Anna MD Work Phone: [facility] [employer] 07-04-2025 13:04-0400 Body temperature 97.2 [degF] Hardik Anna MD Work Phone: [facility] [employer] 07-04-2025 13:04-0400 Body weight 99.07 kg Hardik Anna MD Work Phone: [facility] [employer] 07-04-2025 13:04-0400 Diastolic blood pressure 72 mm[Hg] Hardik Signs Work Phone: [facility] [employer] 07-04-2025 13:04-0400 Heart rate 62 /min Hardik Signs Work Phone: [facility] [employer] 07-04-2025 13:04-0400 SaO2% (BldA) [Mass fraction] 99 % Hardik Signs Work Phone: [facility] [employer] 07-04-2025 13:04-0400 Systolic blood pressure 128 mm[Hg] Hardik Signs Work Phone: [facility] [employer] 06-27-2025 10:48-0400 Body height 175.3 cm Scott Santamaria MD Work Phone: [facility] [employer] 06-27-2025 10:48-0400 Body mass index (BMI) [Ratio] 32.34 kg/m2 Scott Santamaria MD Work Phone: [facility] [employer] 06-27-2025 10:48-0400 Body weight 99.34 kg Scott Santamaria MD Work Phone: [facility] [employer] 06-27-2025 10:48-0400 Diastolic blood pressure 78 mm[Hg] Scott Santamaria MD Work Phone: [facility] [employer] 06-27-2025 10:48-0400 Heart rate 92 /min Scott Santamaria MD Work Phone: [facility] [employer] 06-27-2025 10:48-0400 Systolic blood pressure 137 mm[Hg] Scott Santamaria MD Work Phone: [facility] [employer] 06-22-2025 14:41-0400 Body height 175.3 cm Scott Cuellar APRN - PORTFOLIO SPECIALIST Work Phone: [facility] [employer] 06-22-2025 14:41-0400 Body mass index (BMI) [Ratio] 32.34 kg/m2 Scott Cuellar APRN - PORTFOLIO SPECIALIST Work Phone: [facility] [employer] 06-22-2025 14:41-0400 Body temperature 98.4 [degF] Scott Cuellar LAMINATION INSPECTOR - PORTFOLIO SPECIALIST Work Phone: [facility] [employer] 06-22-2025 14:41-0400 Body weight 99.34 kg Sctot Cuellar LAMINATION INSPECTOR - PORTFOLIO SPECIALIST Work Phone: [facility] [employer] 06-22-2025 14:41-0400 Diastolic blood pressure 71 mm[Hg] Scott Cuellar LAMINATION INSPECTOR - PORTFOLIO SPECIALIST Work Phone: [facility] [employer] 06-22-2025 14:41-0400 Heart rate 76 /min Scott Cuellar LAMINATION INSPECTOR - PORTFOLIO SPECIALIST Work Phone: [facility] [employer] 06-22-2025 14:41-0400 Systolic blood pressure 130 mm[Hg] Scott Cuellar LAMINATION INSPECTOR - PORTFOLIO SPECIALIST Work Phone: [facility] [employer] 06-15-2025 18:47-0400 Body height 175.3 cm Joycelyn Nelson DO Work Phone: [facility] [employer] 06-15-2025 18:47-0400 Body mass index (BMI) [Ratio] 31.01 kg/m2 Joycelyn Nelson DO Work Phone: [facility] [employer] 06-15-2025 18:47-0400 Body temperature 98.2 [degF] Joycelyn Nelson DO Work Phone: [facility] [employer] 06-15-2025 18:47-0400 Body weight 95.25 kg Joycelyn Nelson DO Work Phone: [facility] [employer] 06-15-2025 18:47-0400 Diastolic blood pressure 88 mm[Hg] Joycelyn Nelson DO Work Phone: [facility] [employer] 06-15-2025 18:47-0400 Heart rate 96 /min Joycelyn Nelson DO Work Phone: [facility] [employer] 06-15-2025 18:47-0400 Respiratory rate 16 /min Joycelyn Nelson DO Work Phone: [facility] [employer] 06-15-2025 18:47-0400 SaO2% (BldA) [Mass fraction] 96 % Joycelyn Nelson DO Work Phone: [facility] 06-15-2025 18:47-0400 Systolic blood pressure 143 mm[Hg] Joycelyn Nelson DO Work Phone: [facility] 03-19-2025 04:30-0400 Body temperature 98.2 [degF] No Primary Care Physician [facility] 03-19-2025 04:30-0400 Diastolic blood pressure 88 mm[Hg] No Primary Care Physician [facility] 03-19-2025 04:30-0400 Heart rate 87 /min No Primary Care Physician [facility] 03-19-2025 04:30-0400 Respiratory rate 19 /min No Primary Care Physician [facility] 03-19-2025 04:30-0400 SaO2% (BldA) [Mass fraction] 97 % No Primary Care Physician [facility] 03-19-2025 04:30-0400 Systolic blood pressure 156 mm[Hg] No Primary Care Physician [facility] 03-19-2025 04:22-0400 Body height 175.26 cm No Primary Care Physician [facility] 03-19-2025 04:22-0400 Body mass index (BMI) [Ratio] 31.6 kg/m2 No Primary Care Physician [facility] 03-19-2025 04:22-0400 Body weight 97 kg No Primary Care Physician [facility] 03-16-2025 17:03-0400 Body temperature 98.3 [degF] No Primary Care Physician [facility] 03-16-2025 17:03-0400 Diastolic blood pressure 86 mm[Hg] No Primary Care Physician [facility] 03-16-2025 17:03-0400 Heart rate 74 /min No Primary Care Physician [facility] 03-16-2025 17:03-0400 Respiratory rate 14 /min No Primary Care Physician [facility] 03-16-2025 17:03-0400 SaO2% (BldA) [Mass fraction] 97 % No Primary Care Physician [facility] 03-16-2025 17:03-0400 Systolic blood pressure 146 mm[Hg] No Primary Care Physician [facility] 03-16-2025 15:35-0400 Body height 175.26 cm No Primary Care Physician [facility] 03-16-2025 15:35-0400 Body mass index (BMI) [Ratio] 31.6 kg/m2 No Primary Care Physician [facility] 03-16-2025 15:35-0400 Body weight 97.38 kg No Primary Care Physician [facility] 03-15-2025 04:53-0400 Body height 175.26 cm No Primary Care Physician [facility] 03-15-2025 04:53-0400 Body temperature 97.5 [degF] No Primary Care Physician [facility] 03-15-2025 04:53-0400 Diastolic blood pressure 86 mm[Hg] No Primary Care Physician [facility] 03-15-2025 04:53-0400 Heart rate 120 /min No Primary Care Physician [facility] 03-15-2025 04:53-0400 Respiratory rate 20 /min No Primary Care Physician [facility] 03-15-2025 04:53-0400 SaO2% (BldA) [Mass fraction] 96 % No Primary Care Physician [facility] 03-15-2025 04:53-0400 Systolic blood pressure 154 mm[Hg] No Primary Care Physician [facility] 01-12-2025 15:53-0500 Body height 175.3 cm Ce Wood MD Work Phone: [facility] 01-12-2025 15:53-0500 Body mass index (BMI) [Ratio] 31.01 kg/m2 Ce Wood MD Work Phone: [facility] 01-12-2025 15:53-0500 Body weight 95.25 kg Ce Wood MD Work Phone: [facility] 01-12-2025 12:08-[address] AUTUMN ENRIQUEZ MD [facility] 01-12-2025 12:08-[address] AUTUMN ENRIQUEZ MD [facility] 01-12-2025 12:08-0500 Body temperature 98.42 [degF] DR AUTUMN ENRIQUEZ MD [facility] 01-12-2025 12:08-0500 Diastolic Blood Pressure Non-Invasive 80 mm[Hg] DR AUTUMN ENRIQUEZ MD [facility] 01-12-2025 12:08-0500 Heart rate 74 /min DR AUTUMN ENRIQUEZ MD [facility] 01-12-2025 12:08-0500 Respiratory rate 18 /min DR AUTUMN ENRIQUEZ MD [facility] 01-12-2025 12:08-0500 Systolic Blood Pressure Non-Invasive 150 mm[Hg] DR AUTUMN ENRIQUEZ MD [facility] 11-28-2024 10:25-0500 Body mass index (BMI) [Ratio] 29.5 kg/m2 No Primary Care Physician [facility] 11-28-2024 10:25-0500 Body temperature 96.7 [degF] No Primary Care Physician [facility] 11-28-2024 10:25-0500 Body weight 90.71 kg No Primary Care Physician [facility] 11-28-2024 10:25-0500 Diastolic blood pressure 87 mm[Hg] No Primary Care Physician [facility] 11-28-2024 10:25-0500 Heart rate 59 /min No Primary Care Physician [facility] 11-28-2024 10:25-0500 Respiratory rate 20 /min No Primary Care Physician [facility] 11-28-2024 10:25-0500 SaO2% (BldA) [Mass fraction] 100 % No Primary Care Physician [facility] 11-28-2024 10:25-0500 Systolic blood pressure 141 mm[Hg] No Primary Care Physician [facility] 07-29-2024 14:31-0400 Body height 174 cm Marcos Bee APRN.PORTFOLIO SPECIALIST Work Phone: [facility] 07-29-2024 14:31-0400 Body mass index (BMI) [Ratio] 32.37 kg/m2 Marcos Bee APRN.PORTFOLIO SPECIALIST Work Phone: [facility] 07-29-2024 14:31-0400 Body weight 98 kg Marcos Rohit LAMINATION INSPECTOR.PORTFOLIO SPECIALIST Work Phone: [facility] 07-29-2024 14:31-0400 Diastolic blood pressure 81 mm[Hg] Marcos Rohit LAMINATION INSPECTOR.PORTFOLIO SPECIALIST Work Phone: [facility] 07-29-2024 14:31-0400 Heart rate 65 /min Marcos Rohit LAMINATION INSPECTOR.PORTFOLIO SPECIALIST Work Phone: [facility] 07-29-2024 14:31-0400 Systolic blood pressure 126 mm[Hg] Marcso Rohit LAMINATION INSPECTOR.PORTFOLIO SPECIALIST Work Phone: [facility] 11-13-2022 10:41-0500 Body temperature 99 [degF] Lesli Athy PA-C Work Phone: [facility] 11-13-2022 10:41-0500 Body weight 94.8 kg Lesli Athy PA-C Work Phone: [facility] 11-13-2022 10:41-0500 Diastolic blood pressure 80 mm[Hg] Lesli Athy PA-C Work Phone: [facility] 11-13-2022 10:41-0500 Heart rate 98 /min Lesli Athy PA-C Work Phone: [facility] 11-13-2022 10:41-0500 Respiratory rate 16 /min Lesli Athy PA-C Work Phone: [facility] 11-13-2022 10:41-0500 SaO2% (BldA) [Mass fraction] 97 % Lesli Athy PA-C Work Phone: [facility] 11-13-2022 10:41-0500 Systolic blood pressure 128 mm[Hg] Lesli Athy PA-C Work Phone: [facility] 08-10-2022 00:11-0400 Body temperature 98.8 [degF] [facility] Work Phone: 08-10-2022 00:11-0400 Diastolic blood pressure 88 mm[Hg] [facility] Work Phone: 08-10-2022 00:11-0400 Heart rate 74 /min [facility] Work Phone: 08-10-2022 00:11-0400 Respiratory rate 15 /min [facility] Work Phone: 08-10-2022 00:11-0400 SaO2% (BldA) [Mass fraction] 99 % [facility] Work Phone: 08-10-2022 00:11-0400 Systolic blood pressure 144 mm[Hg] [facility] Work Phone: 08-09-2022 23:21-0400 Body height 172.72 cm [facility] Work Phone: 08-09-2022 23:21-0400 Body mass index (BMI) [Ratio] 33.4 kg/m2 [facility] Work Phone: 08-09-2022 23:21-0400 Body weight 99.79 kg [facility] Work Phone: 07-09-2022 08:39-0400 Body height 175.26 cm [facility] Work Phone: 07-09-2022 08:39-0400 Body mass index (BMI) [Ratio] 30.9 kg/m2 [facility] Work Phone: 07-09-2022 08:39-0400 Body temperature 97.8 [degF] [facility] Work Phone: 07-09-2022 08:39-0400 Body weight 95.16 kg [facility] Work Phone: 07-09-2022 08:39-0400 Diastolic blood pressure 90 mm[Hg] [facility] Work Phone: 07-09-2022 08:39-0400 Heart rate 70 /min [facility] Work Phone: 07-09-2022 08:39-0400 Respiratory rate 18 /min [facility] Work Phone: 07-09-2022 08:39-0400 SaO2% (BldA) [Mass fraction] 95 % [facility] Work Phone: 07-09-2022 08:39-0400 Systolic blood pressure 159 mm[Hg] [facility] Work Phone: 04-02-2022 13:39-0400 Diastolic blood pressure 76 mm[Hg] Shahid Moraes MD Work Phone: [facility] 04-02-2022 13:39-0400 Heart rate 59 /min Shahid Moraes MD Work Phone: [facility] 04-02-2022 13:39-0400 Respiratory rate 18 /min Shahid Moraes MD Work Phone: [facility] 04-02-2022 13:39-0400 SaO2% (BldA) [Mass fraction] 97 % Shahid Moraes MD Work Phone: [facility] 04-02-2022 13:39-0400 Systolic blood pressure 131 mm[Hg] Shahid Moraes MD Work Phone: [facility] 04-02-2022 13:23-0400 Body temperature 98.49 [degF] Shahid Moraes MD Work Phone: [facility] 04-02-2022 12:32-0400 Body height 172.7 cm Sahhid Moraes MD Work Phone: [facility] 04-02-2022 12:32-0400 Body weight 96.16 kg Shahid Moraes MD Work Phone: [facility] 03-21-2022 15:42-0400 Body height 174 cm Casandra Mcdaniel LAMINATION INSPECTOR.PORTFOLIO SPECIALIST Work Phone: [facility] 03-21-2022 15:42-0400 Body weight 96.16 kg Casandra Mcdaniel LAMINATION INSPECTOR.PORTFOLIO SPECIALIST Work Phone: [facility] 03-21-2022 15:42-0400 Diastolic blood pressure 86 mm[Hg] Casandra Mcdaniel LAMINATION INSPECTOR.PORTFOLIO SPECIALIST Work Phone: [facility] 03-21-2022 15:42-0400 Heart rate 71 /min Casandra Mcdaniel LAMINATION INSPECTOR.PORTFOLIO SPECIALIST Work Phone: [facility] 03-21-2022 15:42-0400 Systolic blood pressure 139 mm[Hg] Casandra Mcdaniel LAMINATION INSPECTOR.PORTFOLIO SPECIALIST Work Phone: [facility] Encounters Encounter Date Encounter Type Care Provider Facility Start: 10-12-2025 ambulatory CITLALI FLETCHER Facili ty:[facility] Start: 10-12-2025 ambulatory ROMY LOPES Facili ty:[facility] Start: 10-12-2025 ambulatory ROBERTO Dong ty:[facility] Start: 10-05-2025 End: 10-06-2025 Emergency department patient visit Roberto Che MD Work Phone: [facility] Start: 10-05-2025 End: 10-05-2025 ambulatory [facility] Start: 10-05-2025 End: 10-05-2025 Office outpatient new 20 minutes Joy Will MD Work Phone: [facility] Comment on above: Excessive anger (Monique radha Dx); Primary hypertension; Bipolar 1 disorder (Multi); Tongue pain; Generalized body aches; Muscle cramps Start: 09-29-2025 End: 09-29-2025 Emergency department patient visit Garth Aguilar DO Work Phone: [facility] Emergency Medicine Comment on above: Palpitations (Primar y Dx); Chest pain, unspecified type Start: 09-27-2025 End: 09-27-2025 ambulatory JOHAN FAUST Facility:[facility] Start: 09-26-2025 End: 09-26-2025 Emergency department patient visit CARMEN HUGHES [place] Start: 09-23-2025 ambulatory GAYE FORD Facility :[facility] Start: 08-19-2025 ambulatory JESSIE osborne FP Start: 08-03-2025 End: 08-03-2025 Telephone encounter Nurse Clinical Work Phone: Dermatology Start: 07-29-2025 End: 07-29-2025 Telephone encounter Hardik Anna MD Work Phone: [facility] Infectious Dis Start: 07-29-2025 End: 07-29-2025 Office outpatient new 45 minutes Carmen Hughes MD Work Phone: [facility] Rheumatology & Internal Medicine Comment on above: Left foot pain (Prim ladonna Dx); Discoloration of skin of foot; Leg pain, bilateral; Candidal skin infection; Bipolar 1 disorder (Multi); Obsessive-compulsive disorder, unspecified type; Allergic reaction to drug, sequela Start: 07-29-2025 End: 07-29-2025 ambulatory [facility] Ambulatory Start: 07-28-2025 End: 07-28-2025 Office outpatient new 45 minutes Kobi Short MD Work Phone: [facility] Comment on above: History of adenomato us polyp of colon (Primary Dx); Irritable bowel syndrome with constipation; Bloating Start: 07-28-2025 End: 07-28-2025 ambulatory [facility] Ambulatory Start: 07-27-2025 ambulatory SCOTT CUELLAR Facility: [facility] Start: 07-25-2025 End: 07-25-2025 Telephone encounter Hardik Anna MD Work Phone: [facility] Infectious Dis Start: 07-22-2025 End: 08-18-2025 Telephone encounter Scott Cuellar APRN - PORTFOLIO SPECIALIST Work Phone: [facility] Comment on above: Referral Start: 07-21-2025 End: 07-21-2025 Telephone encounter Mitchel Joe MD Work Phone: [facility] Comment on above: Pre-visit Planning; Appointment Confirmation Start: 07-20-2025 End: 09-19-2025 Follow-up encounter Scott Cuellar APRN - PORTFOLIO SPECIALIST Work Phone: [facility] Comment on above: Vascular US lower ex tremity arterial PVR/BLANK W/O Exercise Start: 07-19-2025 End: 07-19-2025 Subsequent hospital visit by physician Scott Cuellar APRN - PORTFOLIO SPECIALIST Work Phone: [facility] Vascular Lab Comment on above: Thromboangiitis obli terans (Buerger's disease) ([facility]) Start: 07-19-2025 End: 07-19-2025 ambulatory [facility] Start: 07-19-2025 End: 07-20-2025 Orders Only Hardik Anna MD Work Phone: [facility] Infectious Disease - [place] Start: 07-18-2025 End: 07-18-2025 Emergency department patient visit Chloé Magallanes Ruggiero Work Phone: [facility] Emergency Medicine Comment on above: Oral thrush (Primary Dx); Thrush; Tinea corporis; Nonintractable headache, unspecified chronicity pattern, unspecified headache type Start: 07-18-2025 End: 09-17-2025 Follow-up encounter Scott Cuellar APRN - LOKI Work Phone[facility] Comment on above: CT head wo IV contra st Start: 07-16-2025 End: 07-16-2025 Subsequent hospital visit by physician Scott Cuellar APRN - PORTFOLIO SPECIALIST Work Phone: [facility] CT Imaging Comment on above: 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 Internal Medicine [facility] Comment on above: Request For Order(s) (CT Scans / PVR Testing ) Orders Start: 07-14-2025 End: 07-18-2025 ambulatory Marita Wheat RN [facility] Clinical Communication Start: 07-14-2025 End: 07-18-2025 Patient encounter procedure Marita Wheat RN [facility] Clinical Communication Start: 07-14-2025 End: 07-14-2025 Telephone encounter Hardik Anna MD Work Phone: [facility] Infectious Dis Start: 07-13-2025 End: 07-25-2025 Telephone encounter Shelly Izquierdo MD Work Phone: [facility] Comment on above: Referral Start: 07-11-2025 End: 09-10-2025 Follow-up encounter Staci Rosario [facility] Infecti ous Disease - [place] Comment on above: XR foot 3+ views lef t Start: 07-11-2025 End: 08-11-2025 Telephone encounter Shelly Izquierdo MD Work Phone: [facility] Comment on above: Referral Start: 07-11-2025 End: 07-11-2025 Emergency department patient visit UNKNOWN PROVIDER Facility:[facility] Start: 07-11-2025 End: 07-11-2025 Office outpatient new 45 minutes Joycelyn Ariza MD Work Phone: [facility] Vascular - [place] Comment on above: Leg pain, bilateral (Primary Dx); Bilateral leg paresthesia Start: 07-11-2025 End: 07-11-[address] [facility] Start: 07-08-2025 End: 08-04-2025 Telephone encounter Shelly Izquierdo MD Work Phone: [facility] Comment on above: Referral Start: 07-07-2025 End: 07-08-2025 Telephone encounter Hardik Anna MD Work Phone: [facility] Infectious Dis Start: 07-06-2025 End: 07-06-2025 Subsequent hospital visit by physician Hardik Anna MD Work Phone: [facility] Comment on above: Cellulitis of all to es of left foot; Arthralgia, unspecified joint; Class 1 obesity due to excess calories without serious comorbidity with body mass index (BMI) of 32.0 to 32.9 in adult Start: 07-06-2025 End: 07-06-2025 ambulatory HARDIK SIGNS [facility] Start: 07-05-2025 Patient encounter status Shane Anna MD Work Phone: [facility] Start: 07-04-2025 End: 09-03-2025 Follow-up encounter Scott Bartlett CNP Work Phone: [facility] Internal Medicine [facility] Comment on above: Vitamin D Deficiency Screening (Vit D 25), Vitamin B12, Cortisol Start: 07-04-2025 End: 07-04-2025 Office outpatient new 60 minutes Hardik Anna MD Work Phone: [facility] Infectious Disease - [place] Comment on above: Cellulitis of all to es of left foot (Primary Dx); Encounter for generalized patient complaints; Chronic night sweats; Environment contains mold; Arthralgia, unspecified joint; History of blood clots; Bipolar 1 disorder (HCC); Class 1 obesity due to excess calories without serious comorbidity with body mass index (BMI) of 32.0 to 32.9 in adult Start: 07-04-2025 End: 07-04-2025 Patient encounter status Hardik Anna MD Work Phone: [facility] [employer] Start: 07-04-2025 End: 07-04-2025 ambulatory HARDIK SIGNS [facility] Start: 06-29-2025 End: 06-29-2025 Subsequent hospital visit by physician Scott Bartlett CNP Work Phone: [facility] Comment on above: Pain in both testicl es Start: 06-29-2025 End: 06-29-2025 ambulatory SCOTT CUELLAR [facility] Start: 06-28-2025 End: 07-01-2025 Orders Only Scott Bartlett CNP Work Phone: [facility] Internal Medicine [facility] Comment on above: Gastroesophageal ref lux disease, unspecified whether esophagitis present (Primary Dx); Fatigue, unspecified type; Acute gastroenteritis Start: 06-27-2025 End: 08-27-2025 Follow-up encounter Scott Bartlett CNP Work Phone: [facility] Internal Medicine [facility] Comment on above: TSH, Lipase, Lipid p zack, Additional followed-up results: 4 Start: 06-27-2025 Physical examination Scott duran MD Work Phone: [facility] Start: 06-27-2025 End: 06-27-2025 Office outpatient new 45 minutes Scott Santamaria MD Work Phone: [facility] Urology - [place] Comment on above: Right testicular agustina n (Primary Dx); Pelvic floor dysfunction; Slow transit constipation Start: 06-27-2025 End: 06-27-2025 ambulatory SCOTT SANTAMARIA [facility] Start: 06-24-2025 End: 06-24-2025 Subsequent hospital visit by physician Scott Bartlett CNP Work Phone: [facility] Comment on above: Other microscopic he maturia Start: 06-24-2025 End: 06-24-2025 ambulatory SCOTT [facility] Start: 06-24-2025 End: 06-24-2025 Telephone encounter Scott Bartlett CNP Work Phone: [facility] Central Scheduling Comment on above: Other (Central sched uling) Start: 06-22-2025 End: 06-22-2025 Office outpatient visit 25 minutes Scott Bartlett CNP Work Phone: [facility] Comment on above: Encounter for routin e history and physical exam for male (Primary Dx); Bipolar 1 disorder (HCC); Primary hypertension; Fatigue, unspecified type; Arthralgia, unspecified joint; Acute gastroenteritis; Pain in both testicles; Lipid screening; Other microscopic hematuria Start: 06-22-2025 End: 06-22-2025 Physical examination Scott Bartlett CNP Work Phone: [facility] Start: 06-22-2025 End: 06-22-2025 ambulatory SCOTT CUELLAR [facility] Start: 06-15-2025 End: 06-15-2025 Emergency department patient visit Joycelyn Nelson DO Work Phone: [facility] Comment on above: Eloped from emergenc y department (Primary Dx); Aggressive behavior Start: 06-15-2025 End: 06-15-[address] [facility] Start: 06-13-2025 End: 06-13-2025 ambulatory Sangita Solano RN [facility] Clinical Communication Start: 06-13-2025 End: 06-13-2025 Patient encounter procedure Sangita Solano RN [facility] Clinical Communication Start: 03-19-2025 End: 03-19-2025 Emergency department patient visit No Primary Care Physician -Emergency Department Work Phone: Start: 03-17-2025 End: 03-17-2025 Emergency department patient visit MITRA MARIAH [facility] Start: 03-16-2025 End: 03-16-2025 Emergency department patient visit No Primary Care Physician -Emergency Department Work Phone: Start: 03-15-2025 End: 03-15-2025 ambulatory ELIZABETH ARGUETA DO Facility:[facility] Start: 03-15-2025 End: 03-15-2025 Emergency department patient visit No Primary Care Physician -Emergency Department Work Phone: Start: 03-12-2025 End: 03-12-2025 Emergency department patient visit ELIZABETH ARGUETA DO Facility:[facility] Start: 01-14-2025 End: 01-14-2025 Follow-up encounter Tricia Johnson APRN.CNP Work Phone: [facility] [place] Start: 01-13-2025 End: 01-13-2025 Subsequent hospital visit by physician [facility]r [facility] Work Phone: Radiology Comment on above: Chronic cough [R05.3 ] Start: 01-13-2025 End: 01-26-2025 ambulatory Ce Wood MD Work Phone: Urology Start: 01-13-2025 End: 01-26-2025 Follow-up encounter Ce Wood MD Work Phone: Urology Comment on above: Follow up to appoint [facility], 01/12/25 Start: 01-12-2025 End: 01-12-2025 Patient encounter procedure Ce Wood MD Work Phone: Urology Comment on above: Frequent urination ( Primary Dx); Epididymo-orchitis; Renal stones; Hypertrophy of prostate with urinary obstruction; Incomplete bladder emptying; Recurrent UTI Start: 01-12-2025 End: 01-12-2025 ambulatory CE WOOD Facility:[id number] Start: 01-12-2025 End: 01-12-2025 Emergency department patient visit DR AUTUMN ENRIQUEZ MD [facility] [place] [facility] Start: 11-28-2024 End: 11-28-2024 Emergency department patient visit Dr. Harris Aviles DO -Emergency Department Work Phone: Start: 07-29-2024 End: 07-29-2024 Office outpatient visit 15 minutes Marcos Bee APRN.PORTFOLIO SPECIALIST Work Phone: [facility] Comment on above: Chronic cough (Prima ry Dx); Contact with or exposure to mold; Environmental allergies; Cigarette nicotine dependence without complication Start: 07-29-2024 End: 07-29-2024 ambulatory Rochelle Francisco RN [facility] Clinical Communication Start: 07-29-2024 End: 07-29-2024 Patient encounter procedure Rochelle Francisco RN [facility] Clinical Communication Start: 07-28-2024 End: 07-28-2024 Telephone encounter Romy Wing APRN.PORTFOLIO SPECIALIST Work Phone: [address] [place] [address] Comment on above: Appointment Start: 11-13-2022 End: 11-13-2022 Subsequent hospital visit by physician Xr [facility] Work Phone: Radiology Comment on above: Suspected COVID-19 v irus infection [Z20.822] Start: 11-13-2022 End: 11-13-2022 Patient encounter procedure Lesli Cano PA-C Work Phone: [facility] Comment on above: Suspected COVID-19 v irus infection (Primary Dx) Start: 08-09-2022 End: 08-10-2022 Emergency department patient visit [facility]-Emergency Department Start: 07-09-2022 End: 07-09-2022 [facility] Start: 06-24-2022 Telephone encounter Margarito ayala MD Work Phone: Internal Medicine [place] Comment on above: Patient Update Start: 04-02-2022 End: 04-02-2022 Subsequent hospital visit by physician Shahid Moraes MD Work Phone: Ambulatory Surgery Comment on above: Generalized abdomina l pain [R10.84] Start: 03-23-2022 ambulatory Casandra Mcdaniel LAMINATION INSPECTOR.PORTFOLIO SPECIALIST Work Phone: [facility] [place] Comment on above: Medication Start: 03-21-2022 End: 03-21-2022 Patient encounter procedure Casandra Mcdaniel LAMINATION INSPECTOR.PORTFOLIO SPECIALIST Work Phone: [facility] [place] Comment on above: Generalized abdomina l pain (Primary Dx); Bloating; Constipation, unspecified constipation type; Unintentional weight loss Start: 02-06-2019 End: 02-06-2019 Emergency department patient visit [facility] Facility:[facility] Procedures Date Procedure Procedure Detail Performing Clinician Start: 10-06-2025 Radiologic exam chest single view Viri Francois MD Work Phone: Start: 10-05-2025 Assay of magnesium Lizz Arthur MD Work Phone: Start: 10-05-2025 CBC AND ELECTRONIC DIFF Lizz Arthur MD Work Phone: Start: 10-05-2025 Complete blood count with white cell differential, automated Lizz Arthur MD Work Phone: Start: 10-05-2025 GOLD TOP TUBE Lizz Arthur MD Work Phone: Start: 10-05-2025 LAVENDER TOP TUBE Lizz Arthur MD Work Phone: Start: 10-05-2025 LT BLUE TOP TUBE Lizz Arthur MD Work Phone: Start: 10-05-2025 MINT GREEN TOP TUBE Lizz Arthur MD Work Phone: Start: 10-05-2025 RAINBOW DRAW Lizz Arthur MD Work Phone: Start: 09-29-2025 Assay of troponin quantitative Garth Aguilar DO Work Phone: Start: 09-29-2025 Radiologic exam chest single view Chris Aguilar DO Work Phone: Start: 09-29-2025 Basic metabolic panel calcium total Zev Aguilar DO Work Phone: Start: 09-29-2025 Troponin I.cardiac panel - Serum or Plasma by High sensitivity method Garth Aguilar DO Work Phone: Start: 07-19-2025 Complete blood count with white cell differential, automated Hardik Anna MD Work Phone: Start: 07-19-2025 Sedimentation rate rbc automated Hradik Anna MD Work Phone: Start: 07-19-2025 End: 07-19-2025 Non-invasive physiologic study extremity 3 levls Scott Cuellar LAMINATION INSPECTOR - PORTFOLIO SPECIALIST Work Phone: Start: 07-18-2025 Mri brain brain stem w/o w/contrast material Chloé W Ruggiero DO Work Phone: Start: 07-18-2025 C-reactive protein Chloé W Ruggiero DO Work Phone: Start: 07-18-2025 Comprehensive metabolic panel Chloé W Swi ft DO Work Phone: Start: 07-16-2025 Ct head/brain w/o contrast material Juancarlos Cuellar LAMINATION INSPECTOR - PORTFOLIO SPECIALIST Work Phone: Start: 07-04-2025 Assay of ferritin Hardik Anna MD Work Phone: Start: 07-04-2025 End: 07-04-2025 Bacteria identified in Blood by Culture Hardik Anna MD Work Phone: Start: 07-04-2025 C-reactive protein Hardik Anna MD Work Phone: Start: 06-24-2025 Assay of lipase Scott Cuellar LAMINATION INSPECTOR - PORTFOLIO SPECIALIST Work Phone: Start: 06-24-2025 Lipid panel Scott Cuellar LAMINATION INSPECTOR - PORTFOLIO SPECIALIST Work Phone: Start: 06-24-2025 Thyrotropin [Units/volume] in Serum or Plasma Scott Cuellar LAMINATION INSPECTOR - PORTFOLIO SPECIALIST Work Phone: Start: 06-24-2025 Ct abdomen & pelvis w/o contrast material Scott Cuellar LAMINATION INSPECTOR - PORTFOLIO SPECIALIST Work Phone: Start: 06-24-2025 Lipid 1996 panel - Serum or Plasma Toro Santamaria MD Work Phone: Start: 06-15-2025 Urnls dip stick/tablet reagent auto microscopy Luis Smyth MD Work Phone: Start: 06-15-2025 Comprehensive metabolic panel Luis snow MD Work Phone: Start: 03-16-2025 Gram stain microscopy No Primary Care Physician Start: 03-15-2025 X-ray of foot, three or more views No Pr imwapato Care Physician Start: 01-13-2025 Radiologic exam chest 2 views Marcos zamora LAMINATION INSPECTOR.PORTFOLIO SPECIALIST Work Phone: Start: 01-12-2025 BLADDER SCAN Ce Wood MD Work Phone: Start: 11-13-2022 Radiologic exam chest 2 views Lesli R Ath y PA-C Work Phone: Start: 07-09-2022 X-ray of chest posteroanterior view Start: 04-02-2022 Esophagogastroduodenoscopy transoral diagnostic Casandra Mcdaniel LAMINATION INSPECTOR.PORTFOLIO SPECIALIST Work Phone: Start: 04-02-2022 Colonoscopy flx dx w/collj spec when pfrmd Casandra Mcdaniel LAMINATION INSPECTOR.PORTFOLIO SPECIALIST Work Phone: Start: 04-02-2022 Colonoscopy Margarito Smith MD Work Phone: Start: 11-26-2016 Lipid 1996 panel - Serum or Plasma Romy Wing LAMINATION INSPECTOR.PORTFOLIO SPECIALIST Work Phone: None (qualifier value) DR JAREN ENRIQUEZ MD Plan of Treatment Date Care Activity Detail Author Start: 2062 RSV Immunization for Adults (1 - 1-dose 75+ series) RSV Immunization for Adults (1 - 1-dose 75+ series) [facility] Start: 2047 RSV Immunization aged 60 or older (1 - 1-dose 60+ series) RSV Immunization aged 60 or older (1 - 1-dose 60+ series) [facility] Start: 2037 Zoster Vaccines (1 of 2) Zoster Vaccines (1 of 2) [facility] Start: 11-28-2034 DTaP/Tdap/Td Vaccines (2 - Td or Tdap) DTaP/Tdap/Td Vaccines (2 - Td or Tdap) [facility] Start: 11-28-2034 Tetanus vaccination TETANUS [facility] Start: 11-28-2034 Urine microalbumin profile DTaP,Tdap,Td Vaccine (2 - Td or Tdap) [facility] Start: 06-24-[address] [facility] Start: 07-18-2028 Diabetes mellitus screening Diabetes Screening [facility] Start: 04-02-2027 Colonoscopy COLONOSCOPY [facility] Start: 04-02-2027 COLORECTAL CANCER SCREENING COLORECTAL CANCER SCREENING [facility] Start: 04-02-2027 Screening for malignant neoplasm of colon [facility] Start: 09-29-2026 Diabetes mellitus screening Diabetes Screening [facility] Start: 07-18-2026 Diabetes mellitus screening Diabetes Screening [facility] Start: 03-15-2026 End: 03-15-2026 Patient encounter procedure 03/15/2026 2:00 PM EDT Office Visit [facility] [address] [place] [address] Garima Huertas MD [address] [place] [address] [facility] Start: 12-23-2025 Depression Monitoring Depression Monitoring [facility] Start: 11-28-2025 End: 11-28-2025 Patient encounter procedure 11/28/2025 3:00 PM EST Office Visit [facility] Rheumatology & Internal Medicine [address] [place] [phone] Carmen Hughes MD [address] [place] [address] [facility] Rheumatology & Internal Medicine Start: 10-18-2025 End: 10-18-2025 Patient encounter procedure 10/18/2025 2:45 PM EST Office Visit [address] [place] [address] Kobi Short MD [address] [facility] [place] [address] [facility] Start: 10-14-2025 End: 10-14-2025 Patient encounter procedure 10/14/2025 2:20 PM EST Office Visit [facility] Internal Medicine [address] [place] [phone] Shelly Izquierdo MD [address] [facility] [address] [place], [place] [id number] [facility] Internal Medicine [facility] Start: 10-10-2025 End: 10-10-2025 Patient encounter procedure 10/10/2025 3:00 PM EST Office Visit [facility] [address] [place] [address] Anibal Parekh MD [address] [facility] [place] [address] [facility] Start: 10-07-2025 End: 10-07-2025 Patient encounter procedure 10/07/2025 11:30 AM EST Office Visit [facility] Medical Office Building [address] [place] [address] 2[address] [place] [address] Viktor Lopez MD [address] [place] [address] [address] Level, [address] [place] [address] [facility] Medical Office Building Start: 10-05-2025 End: 10-05-2025 Patient encounter procedure 10/05/2025 10:30 AM EST Office Visit [facility] Internal Medicine [address] [place] [phone] Joy Will MD [address] [facility] [place] [address] [facility] Internal Medicine Start: 09-27-2025 End: 09-27-2025 Patient encounter procedure 09/27/2025 12:15 PM EDT Office Visit Vascular Medicine [address] [place] [address] Johan Faust MD [address] [place], [place] [id number] Dx: Erythromelalgia, Burning Red Hands and Feet Vascular Medicine Comment on above: Dx: Erythromelalgia, Burning Red Hands a nd Feet Start: 08-02-2025 End: 08-02-2025 Patient encounter procedure 08/02/2025 2:30 PM EDT Office Visit [facility] - [place] [address] [place] [phone] Scott Santamaria MD [address] [place] [address] [facility] [place] Start: 08-01-2025 COVID-19 Vaccine ( season) COVID-19 Vaccine ( season) [facility] Start: 08-01-2025 Influenza vaccination Influenza Vaccine (#1) [facility] Start: 07-29-2025 Annual PCP Team Chronic Disease Visit Annual PCP Team Chronic Disease Visit [facility] Start: 07-29-2025 End: 07-29-2025 Patient encounter procedure 07/29/2025 1:20 PM EDT Office Visit [facility] Rheumatology & Internal Medicine [address] [place] [phone] Carmen Hughes MD [address] [facility] [address] [place] [address] [facility] Rheumatology & Internal Medicine Start: 07-28-2025 End: 07-28-2025 Patient encounter procedure 07/28/2025 1:30 PM EDT Office Visit [address] [place] [address] Kobi Short MD [address] [facility] [address] [place] [address] [facility] Start: 07-25-2025 End: 07-25-2025 Patient encounter procedure 07/25/2025 8:20 AM EDT Office Visit [facility] [address] [place] [phone] Mitchel Joe MD [address] [place] [address] [facility] Start: 07-22-2025 End: 07-22-2025 Patient encounter procedure 07/22/2025 11:20 AM EDT Office Visit [facility] [address] [place] [address] Mitchel Joe MD [address] [place] [address] [facility] Start: 07-20-2025 End: 07-20-2025 Patient encounter procedure 07/20/2025 9:20 AM EDT Office Visit [facility] [address] [place] [phone] Joel Cohen MD [address] [place] [address] [facility] [place] Start: 07-19-2025 End: 07-19-2025 Patient encounter procedure [facility] Vascular Lab Start: 07-18-2025 End: 07-18-2025 Patient encounter procedure 07/18/2025 1:50 PM EDT Office [facility] [address] [place] [phone] Carlotadamir ScottTATE CNP [address] [place] [address] [facility] Internal Medicine - [facility] Start: 07-11-2025 End: 07-11-2025 Patient encounter procedure 07/11/2025 9:00 AM EDT Office Visit [facility] [place] [address] [place] [phone] Joycelyn Ariza MD [address] [place] [address] [facility] Start: 07-04-2025 End: 07-04-2026 XR Foot - left 3 Views XR foot 3+ views left Imaging Routine Cellulitis of all toes of left foot Arthralgia, unspecified joint Class 1 obesity due to excess calories without serious comorbidity with body mass index (BMI) of 32.0 to 32.9 in adult Expected: 07/04/2025, Expires: 07/04/2026 [facility] Work Phone: Comment on above: Expected: 07/04/2025, Expires: Start: 07-04-2025 End: 07-04-2025 Patient encounter procedure 07/04/2025 1:00 PM EDT Office Visit [facility] [place] [address] [place] [phone] Hardik Anna MD [address] [place], [place] [id number] [facility] [place] Start: 07-01-2025 End: 07-01-2026 25-hydroxyvitamin D3 [Mass/volume] in Serum or Plasma Vitamin D Deficiency Screening (Vit D 25) Lab Routine Gastroesophageal reflux disease, unspecified whether esophagitis present Fatigue, unspecified type Expected: 07/01/2025 (Approximate), Expires: 07/01/2026 [facility] [employer] Work Phone: Comment on above: Expected: 07/01/2025 (Approximate), Expi res: 07/01/2026 Start: 07-01-2025 End: 07-01-2026 Cobalamin (Vitamin B12) [Mass/volume] in Serum or Plasma Vitamin B12 Lab Routine Gastroesophageal reflux disease, unspecified whether esophagitis present Fatigue, unspecified type Expected: 07/01/2025 (Approximate), Expires: 07/01/2026 [facility] [employer] Comment on above: Expected: 07/01/2025 (Approximate), Expi res: 07/01/2026 Start: 07-01-2025 End: 07-01-2026 Cortisol Cortisol Lab Routine Gastroesophageal reflux disease, unspecified whether esophagitis present Fatigue, unspecified type Expected: 07/01/2025 (Approximate), Expires: 07/01/2026 [facility] [employer] Comment on above: Expected: 07/01/2025 (Approximate), Expi res: 07/01/2026 Start: 07-01-2025 Influenza vaccination Influenza Vaccine (#1) [facility] Start: 07-01-2025 End: 07-01-2026 Nuclear Ab [Titer] in Serum by Immunofluorescence NAVEED Lab Routine Gastroesophageal reflux disease, unspecified whether esophagitis present Fatigue, unspecified type Expected: 07/01/2025 (Approximate), Expires: 07/01/2026 [facility] Comment on above: Expected: 07/01/2025 (Approximate), Expi res: 07/01/2026 Start: 06-29-2025 Subsequent hospital visit by physician 06/29/2025 2:00 PM EDT Hospital Encounter [facility] [address] [place] [address] Scott Cuellar, LAMINATION INSPECTOR - PORTFOLIO SPECIALIST [address] [place] [address] [facility] Start: 06-27-2025 End: 06-27-2025 Patient encounter procedure 06/27/2025 11:00 AM EDT Office Visit [facility] [address] [place] [phone] Scott Santamaria MD [address] [place] [address] [facility] [place] Start: 06-22-2025 End: 06-22-2026 Testo,Free/Total-Male Testo,Free/Total-Male Lab Routine Fatigue, unspecified type Expected: 06/22/2025 (Approximate), Expires: 06/22/2026 [facility] Work Phone: Comment on above: Expected: 06/22/2025 (Approximate), Expi res: 06/22/2026 Start: 06-22-2025 End: 06-22-2026 US Scrotum and testicle US scrotum Imaging Routine Pain in both testicles Expected: 06/22/2025, Expires: 06/22/2026 [facility] Comment on above: Expected: 06/22/2025, Expires: Start: 03-16-2025 End: 03-16-2025 [facility] Start: 03-16-2025 Microbial culture, routine Wound Culture [facility] Start: 03-08-2025 End: 03-08-2025 Patient encounter procedure 03/08/2025 3:05 PM EDT Office Visit Gastro[facility] [address] [place] [phone] Faiza Anders APRN.PORTFOLIO SPECIALIST [address] [place] [address] Blood in stool, Bloating, Severe pain in lower abdomen and groin, constipation, pain with bowel movement [facility] Comment on above: Blood in stool, Bloating, Severe pain in lower abdomen and groin, constipation, pain with bowel movement Start: 02-16-2025 End: 02-16-2025 Patient encounter procedure 02/16/2025 4:00 PM EDT Office Visit Urology [address] [place] [address] Ce Wood MD [address] [place] [address] 4-6 WEEK FOLLOW UP Urology Comment on above: 4-6 WEEK FOLLOW UP Start: 01-20-2025 End: 01-20-2025 Patient encounter procedure 01/20/2025 3:00 PM EST Appointment Cat Scan [address] [place] [address] CT FLANK WO IVCON Cat Scan Comment on above: CT FLANK WO IVCON Start: 01-19-2025 End: 02-11-2026 CT Abdomen and Pelvis WO contrast CT FLANK WO IVCON Radiology Routine Renal stones Expected: 01/19/2025 (Approximate), Expires: 02/11/2026 [facility] Work Phone: Comment on above: Expected: 01/19/2025 (Approximate), Expi res: 02/11/2026 Start: 12-01-2024 Medicare Advantage Annual Wellness Visit Medicare Advantage Annual Wellness Visit [facility] Start: 11-28-2024 Simple repair scalp/neck/ax/genit/trunk 2.5cm/< RPR S/N/AX/GEN/TRNK 2.5CM/< [facility] Start: 11-28-2024 [facility] Start: 08-23-2024 End: 08-23-2024 Patient encounter procedure 08/23/2024 10:40 AM EDT Office Visit [facility] [address] [place] [address] Jenny Heath APRN - LOKI [address] [place] [address] [place] [address] [facility] Start: 08-01-2024 Covid-19 Vaccine ( season) Covid-19 Vaccine ( season) [facility] Start: 08-01-2024 Influenza vaccination Influenza Vaccine (#1) [facility] Start: 07-29-2024 End: 07-29-2024 Patient encounter procedure 07/29/2024 2:40 PM EDT Office Visit Family Practice [address] [place], [place] [id number] Marcos Bee APRN.PORTFOLIO SPECIALIST [address] [place], [place] [address] ER F/[facility] Comment on above: ER F/[facility] Start: 12-01-2023 Medicare Advantage Annual Wellness Visit Medicare Advantage Annual Wellness Visit [facility] Start: 08-01-2023 Covid-19 Vaccine ( season) Covid-19 Vaccine () [facility] Start: 01-11-2023 ANNUAL PCP TEAM CHRONIC DISEASE VISIT ANNUAL PCP TEAM CHRONIC DISEASE VISIT [facility] Start: 11-13-2022 End: 11-27-2022 Influenza virus A and B RNA and SARS-CoV-2 (COVID-19) N gene panel - Respiratory specimen by ADAL with probe detection [facility] Work Phone: Comment on above: Expected: 11/13/2022, Expires: 2 Start: 08-01-2022 Influenza vaccination INFLUENZA (#1) [facility] Start: 2022 Lipid panel Lipid Screening [facility] Start: 2022 LIPID SCREEN LIPID SCREEN [facility] Start: 01-17-2022 COVID-19 VACCINE (4 - Booster for Moderna series) COVID-19 VACCINE (4 - Booster for Moderna series) [facility] Start: 11-23-2016 MMR Vaccines (1 of 1 - Standard series) MMR Vaccines (1 of 1 - Standard series) [facility] Start: 2014 HPV Vaccine (1 - 3-dose SCDM series) HPV Vaccine (1 - 3-dose SCDM series) [facility] Start: 2014 HPV Vaccines (1 - 3-dose standard series) HPV Vaccines (1 - 3-dose standard series) [facility] Start: 2006 DTaP/Tdap/Td Vaccines (1 - Tdap) DTaP/Tdap/Td Vaccines (1 - Tdap) [facility] Start: 2006 Hepatitis A Vaccines (1 of 2 - Risk 2-dose series) Hepatitis A Vaccines (1 of 2 - Risk 2-dose series) [facility] Start: 2006 Hepatitis B vaccination HEP B VACCINE (1 of 3 - 19+ 3-dose series) [facility] Start: 2006 Hepatitis B Vaccine (1 of 3 - 19+ 3-dose series) Hepatitis B Vaccine (1 of 3 - 19+ 3-dose series) [facility] Start: 2006 Hepatitis B Vaccines (1 of 3 - 19+ 3-dose series) Hepatitis B Vaccines (1 of 3 - 19+ 3-dose series) [facility] Start: 2006 ONE PNEUMOVAX PRIOR TO AGE 65 ONE PNEUMOVAX PRIOR TO AGE 65 [facility] Start: 2006 Pneumococcal vaccination Pneumococcal Vaccine (1 of 2 - PCV) [facility] Start: 2006 PNEUMOCOCCAL VACCINE SERIES (1 of 2 - PCV) PNEUMOCOCCAL VACCINE SERIES (1 of 2 - PCV) [facility] Start: 2006 Pneumococcal Vaccine: Pediatrics (0 to 5 Years) and At-Risk Patients (6 to 49 Years) (1 of 2 - PCV) Pneumococcal Vaccine: Pediatrics (0 to 5 Years) and At-Risk Patients (6 to 49 Years) (1 of 2 - PCV) [facility] Start: 2006 Pneumococcal Vaccine: Pediatrics and At-Risk Adult Patients (1 of 2 - PCV) Pneumococcal Vaccine: Pediatrics and At-Risk Adult Patients (1 of 2 - PCV) [facility] Start: 2006 Urine microalbumin profile [facility] Start: 2005 Anxiety Screening Anxiety Screening [facility] Start: 2005 BP CONTROLLED (<130/80) BP CONTROLLED (<130/80) [facility] Start: 2005 Diabetes mellitus screening Diabetes Screening [facility] Start: 2005 Hepatitis C screening Hepatitis C Screening [facility] Start: 2002 HIV screening HIV SCREENING DISCUSSION [facility] Start: 2000 Varicella vaccination Varicella Vaccines (1 of 2 - 13+ 2-dose series) [facility] Start: 1999 Depression Monitoring Depression Monitoring [facility] Start: 1999 Depression Screening Depression Screening [facility] Start: 1993 PNEUMOCOCCAL (1 - PCV) PNEUMOCOCCAL (1 - PCV) [facility] Start: 1993 Pneumococcal vaccination Pneumococcal Vaccine (1 of 2 - PCV) [facility] Start: 1988 MMR Vaccines (1 of 1 - Standard series) MMR Vaccines (1 of 1 - Standard series) [facility] Start: 1987 HEPATITIS B (1 of 3 - 3-dose series) HEPATITIS B (1 of 3 - 3-dose series) [facility] Start: 1987 Hepatitis C screening HEPATITIS C VIRUS SCREENING [facility] Start: 1987 HIV screening HIV Screening [facility] Start: 1987 Lipid panel Lipid Panel [facility] Start: 1987 Medicare Annual Wellness Visit Medicare Annual Wellness Visit (AWV) [facility] Bacteria identified in Blood by Culture [facility] Bacteria identified in Urine by Culture BACTERIAL CULTURE, URINE Microbiology Routine Recurrent UTI 01/12/2025 4:25 PM [facility] Borrelia burgdorferi IgG+IgM Ab [Units/volume] in Serum LYME ANTIBODY SCREEN WITH REFLEX TO IMMUNOBLOT Lab Routine Cellulitis of all toes of left foot Arthralgia, unspecified joint Class 1 obesity due to excess calories without serious comorbidity with body mass index (BMI) of 32.0 to 32.9 in adult 07/04/2025 2:[address] [facility] End: 07-18-2025 ECG 12 Lead ECG 12 Lead ECG STAT Once for 1 Occurrences starting 07/18/2025 until 07/18/2025 [facility] Work Phone: Comment on above: Once for 1 Occurrences starting 07/18/20 until 07/18/2025 End: 09-29-2025 ECG 12 lead [facility] Work Phone: Comment on above: Once for 1 Occurrences starting 09/29/20 until 09/29/2025 Erythropoietin Erythropoietin L ab Routine Cellulitis of all toes of left foot Arthralgia, unspecified joint Chronic night sweats History of blood clots 07/04/2025 2:[address] [facility] End: 07-18-2025 Fungus identified in Blood by Culture Fungal Culture, Blood Lab STAT Once (Lab) for 1 Occurrences starting 07/18/2025 until 07/18/2025 [facility] Work Phone: Comment on above: Once (Lab) for 1 Occurrences starting until 07/18/2025 Fungus identified in Unspecified specimen by Culture Fungal Culture Microbiology Routine Cellulitis of all toes of left foot Arthralgia, unspecified joint Class 1 obesity due to excess calories without serious comorbidity with body mass index (BMI) of 32.0 to 32.9 in adult Chronic night sweats History of blood clots 07/04/2025 3:[address] [facility] Hemochromatosis mutation Hemochr omatosis mutation Lab Routine Cellulitis of all toes of left foot Arthralgia, unspecified joint Class 1 obesity due to excess calories without serious comorbidity with body mass index (BMI) of 32.0 to 32.9 in adult 07/04/2025 2:[address] [facility] Patient Education [facility] Work Phone: Patient referral [facility] Work Phone: End: 10-05-2025 Standard ECG [facility] Comment on above: One Time for 1 Occurrences starting 03/2025 until 10/05/2025 SURGICAL PATHOLOGY [facility] Work Phone: Comment on above: Release Upon Ordering for 1 Occurrences starting 04/02/2022, 1 completed End: 06-29-2025 US Scrotum and testicle [facility] Work Phone: Comment on above: Once for 1 Occurrences starting 06/29/20 until 06/29/2025 XR Chest PA and Lateral XR CHEST 2V FRONTAL/LAT Radiology STAT Chronic cough Ordered: 07/29/2024 [facility] Work Phone: Comment on above: Ordered: 07/29/2024 End: 07-06-2025 XR Foot - left 3 Views [facility] [employer] Work Phone: Comment on above: Once for 1 Occurrences starting 07/06/20 until 07/06/2025 Immunizations Immunization Date Immunization Notes Care Provider Torsten josejulita 11-28-2024 tetanus toxoid, redu bg diphtheria toxoid, and acellular pertussis vaccine, adsorbed No Primary Care Physician [facility] 01-11-2022 influenza, injectabl e, quadrivalent, contains preservative Casandra Mcdaniel LAMINATION INSPECTOR.PORTFOLIO SPECIALIST Work Phone: [facility] 01-11-2022 influenza virus vaccine, unspecified formulation Romy Podlogar LAMINATION INSPECTOR.PORTFOLIO SPECIALIST Work Phone: [facility] 08-08-2016 rabies vaccine, for intramuscular injection Casandra Mcdaniel LAMINATION INSPECTOR.PORTFOLIO SPECIALIST Work Phone: [facility] 07-31-2016 rabies vaccine, for intramuscular injection [facility] 07-24-2016 rabies immune globulin [facility] Work Phone: 07-24-2016 rabies vaccine, for intramuscular injection Casandra Mcdaniel LAMINATION INSPECTOR.PORTFOLIO SPECIALIST Work Phone: [facility] Payers Date Payer Category Payer Unknown [id number] 2025 Private Health Insurance [id number] 2024 Self-pay [id number] 2023 Medicare (Managed Care) 1.2. [id number] 2023 Medicare HMO UHC DUAL COMPLET E [id number] 2023 [facility] [id number] 2023 Medicaid HMO [id number] 2022 Medicaid (Managed Care) 1.2. [id number] 2022 Medicaid [facility] [id number] 2022-Present [phone] [address] [place] [address] Medicaid [id number] 2022 Medicaid [id number] 2022 Medicare [facility] MEDICARE [facility] DUAL COMPLETE HMO SNP [id number] 2022-Present [phone] [address] [place] [address] Medicare [id number] 2022 Medicare [id number] .[id number] 2019 Dual Eligibility Medicare/Medicaid Organization [id number] .[id number] 2019 Medicare [id number] 2012 Medicaid [id number] 2012 [facility] [id number] 1987 Unknown [id number] 2.16.840.1.277506.3.579.2 .627 1987 Unknown [id number] 2.16.840.1.338192.3.579.2 .627 1987 Unknown [id number] 2.16.840.1.622773.3.579.2 .627 1987 Unknown [id number] 2.16.840.1.048516.3.579.2 .627 1987 Unknown [id number] 2.16.840.1.498985.3.579.2 .732 1987 Unknown [id number] 2.16.840.1.810565.3.579.2 .1249 1987 Unknown [id number] 2.16840.1.271125.3.579.2 .902 1987 Unknown [id number] 2.16.840.1.834127.3.579.2 .1244 1987 Unknown [id number] 2.16.840.1.217788.3.579.2 .1244 1987 Unknown [id number] 2.16.840.1.643900.3.579.2 .1244 1987 Unknown [id number] 2.16840.1.503493.3.579.2 .124 1987 Unknown [id number] 2.16.840.1.513613.3.579.2 .1243 1987 Unknown [id number] 2.16.840.1.428264.3.579.2 .1243 1987 Unknown [id number] 2.16.840.1.288844.3.579.2 .594 1987 Unknown [id number] 2.16.840.1.765053.3.579.2 .594 1987 Unknown [id number] 2.16.840.1.306115.3.579.2 .594 1987 Unknown [id number] 2.16.840.1.998054.3.579.2 .594 1987 Unknown [id number] 2.16.840.1.389660.3.579.2 .594 1987 Unknown [id number] 2.16.840.1.474374.3.579.2 .594 1987 Unknown [id number] 2.16.840.1.024285.3.579.2 .594 Unknown [id number] 2.16.840.1.250762.3.579.2 .462 Unknown [id number] 2.16.840.1.387521.3.579.2 .462 Unknown [id number] 2.16.840.1.238864.3.579.2 .462 Unknown [id number] 2.16.840.1.716344.3.579.2 .462 Social History Date Type Detail Facility Start: 05-13-2014 End: 07-27-2025 Tobacco smoking status NHIS Smokes tobacco daily [facility] Work Phone: Start: 07-10-2010 History of tobacco use Cigarette Smo ker [facility] Work Phone: Start: 05-13-2014 End: 10-05-2025 Cigarettes smoked current (pack per day) - Reported 1 [facility] Start: 05-13-2014 End: 07-27-2025 Tobacco use and exposure Smokeless tobacco non-user [facility] Work Phone: Start: 03-21-2022 End: 10-05-2025 Alcohol intake Ex-drinker (finding) [facility] Start: 01-11-2022 History SDOH Alcohol Frequency 1 [facility] Start: 01-11-2022 History SDOH Alcohol Comment in recovery since 2018 [facility] Start: 1985 Sex Assigned At Male [facility] Start: 03-17-2022 End: 04-02-2022 Exposure to SARS-CoV-2 (event) Not sure [facility] Work Phone: Start: 07-09-2022 End: 08-10-2022 Tobacco smoking status VTIS Unknown if ever smoked [facility] Start: 04-27-2021 [facility] Start: 04-27-2021 [facility] Start: 04-27-2021 Alone [facility] Start: 04-27-2021 Cigarettes [facility] Start: 01-11-2022 End: 10-05-2025 Alcohol Use Disorder Identification Test - Consumption [AUDIT-C] [facility] How often to you hav e a drink containing alcohol? Never [facility] Start: 11-01-2012 End: 10-26-2022 Average Number of Drinks Not on file [facility] Start: 03-15-2022 Gender identity Identifies as male gender (finding) [facility] Start: 03-15-2022 Sexual orientation Choose not to disclose [facility] Has the [employer], or [employer] threatened to shut off services in your home in past 12Mo No [facility] Do you belong to any clubs or organizations such as roman catholic groups, unions, fraternal or athletic groups, or school groups? Yes [facility] Are you now , , , , never or living with a partner? Never [facility] How hard is it for y ou to pay for the very basics like food, housing, medical care, and heating Not very hard [facility] Do you feel stress - tense, restless, nervous, or anxious, or unable to sleep at night because your mind is troubled all the time - these days [OSQ] To some extent [facility] (I/We) worried magui er (my/our) food would run out before (I/we) got money to buy more. Sometimes true [facility] Start: 07-29-2024 Sexual orientation Heterosexua l (finding) [facility] Start: 1987 Sex assigned at Not on file [facility] Sexual Orientation [facility] Start: 02-03-2020 End: 04-20-2025 Sex Male (finding) [facility] Start: 06-15-2025 End: 07-11-2025 Tobacco use and exposure User of smokeless tobacco [facility] Start: 06-15-2025 End: 10-05-2025 Alcoholic beverage intake Lifetime non-drinker (finding) [facility] How hard is it for y ou to pay for the very basics like food, housing, medical care, and heating Somewhat hard [facility] Do you feel stress - tense, restless, nervous, or anxious, or unable to sleep at night because your mind is troubled all the time - these days [OSQ] Not at all [facility] History of tobacco use Passive smoker [facility] Start: 07-11-2025 End: 10-05-2025 Tobacco smoking status [facility] Ex-smoker [facility] Start: 07-10-2010 History of tobacco use Current smoke r [facility] Start: 07-21-2025 Alcohol Comment Non drinker [facility] Start: 07-28-2025 End: 07-29-2025 Tobacco smoking status [facility] Occasional tobacco smoker [facility] Start: 07-27-2025 Alcohol Comment I quit drinkin g alcohol many years ago. [facility] Work Phone: Start: 07-29-2025 Tobacco Comment 12/04 ppd [facility] Work Phone: NEGATED: Highlighted rowStart: NINF History of tobacco use [facility] Functional Status Date Assessment Result Facility 10-05-2025 Patient Health [facility] ionnaire 2 item (PHQ-2) [Reported] [facility] Work Phone: 10-05-2025 Functional status 135/93 025 10:37 AM Little Berkowitz [facility] 135/93 [facility] Work Phone: 10-05-2025 Vital signs 83 10/05/2025 10 :37 AM Little Berkowitz [facility] Work Phone: 09-29-2025 [facility] Work Phone: 10-30-2025 Functional status [facility] Work Phone: 09-29-2025 [place] - suicide s everity rating scale screener - recent [C-SSRS] [facility] Work Phone: 07-29-2025 Patient Health [facility] ionnaire 2 item (PHQ-2) [Reported] [facility] Work Phone: 07-18-2025 [place] - suicide s everity rating scale screener - recent [C-SSRS] [facility] Work Phone: 06-22-2025 Alcohol Use Disorder Identification Test [AUDIT] [facility] 06-22-2025 Patient [facility] ionnaire 2 item (PHQ-2) [Reported] [facility] 06-22-2025 PHQ-9 quick depressi on assessment panel [Reported.PHQ] [facility] 06-15-2025 Total score [AUDIT-C] 0 06/15/20 25 6:45 PM Selina Bentley RN [facility] 06-29-2015 Are you deaf, or do you have serious difficulty hearing No 06/29/2015 10:48 AM Genna Palacios MA No [facility] 06-29-2015 Are you blind, or do you have serious difficulty seeing, even when wearing glasses No 06/29/2015 10:48 AM Genna Palacios MA No [facility] 06-29-2015 Do you have serious difficulty walking or climbing stairs No 06/29/2015 10:48 AM Genna Palacios MA No [facility] 06-29-2015 Do you have difficul ty dressing or bathing No 06/29/2015 10:48 AM Genna Palacios MA No [facility] 06-29-2015 Because of a physica l, mental, or emotional condition, do you have difficulty doing errands alone such as visiting a physician's office or shopping No 06/29/2015 10:48 AM Genna Palacios MA No [facility] Work Phone: Mental Status Date Assessment Result Facility 03-19-2025 Cognitive function Level Of Cons ciousness Awake;Alert;Appropriate [facility] Work Phone: 06-29-2015 Because of a physica l, mental, or emotional condition, do you have serious difficulty concentrating, remembering, or making decisions No 06/29/2015 10:48 AM EDT Genna Noriega MA No [facility] [facility] Clinical Notes 03-21-2022 to 10-06-2025 CRISTIANE Duran - 10/06/2025 2:01 AM CRISTIANE Coelho - 10/06/2025 2:01 AM Babatunde Cunningham RN - 10/06/2025 1:50 AM Charlie Che MD - 10/06/2025 12:33 AM ESTDischarge Instructions Note Date & Type Note Facility 10-06-2025 Emergency department Note Care Management Progress Note SW provided patient with insurance transportation information if needed for discharge transportation, placed in discharge paperwork. CRISTIANE Ibrahim ED Bundler [employer] Available on Secure Chat [facility] 10-06-2025 Emergency department Note Care Management Progress Note SW provided patient with insurance transportation information if needed for discharge transportation, placed in discharge paperwork. CRISTIANE Ibrahim ED Bundler [employer] Available on Secure Chat Pt. Removed pulse ox, BP cuff, tele leads after speaking with attending and walked out of ER before tw could review discharge paperwork. ED Attending Chief Complaint Patient presents with Chest Pain Palpitations Past Medical History[1] Ce Baer is a 40 y.o. male presents with palpitations. Symptoms for two weeks, intermittent. Associated squeezing and stabbing sensation. Blurred vision and lightheadedness during episodes. height is 1.778 m (5' 10"). His temperature is 98.1 F (36.7 C). His blood pressure is 156/97 (abnormal) and his pulse is 69. His respiration is 23 and oxygen saturation is 94%. Review of Systems: All other systems were reviewed and were negative unless otherwise noted Differential diagnosis: Arrhythmia, ACS, PE, dissection, Raynaud's, anxiety Impression: Palpitations Plan: Medical Decision Making Initial plan for basic labs, EKG, cardiac markers, TSH, CXR, heart express referral. After discussing with patient, planned to add d-dimer, but patient refused any additional workup. Also discussed with he patient giving him outpatient BP medication, which he initially agreed to. However,t he patient abruptly changed his mood and behavior during out conversation and requested discharged. The patient took out his own IV and left the ED prior to providing final discharge plan and paperwork. TSH and BNP pending at time of patient elopement. Problems Addressed: Palpitations: acute illness or injury Amount and/or Complexity of Data Reviewed Labs: ordered. Radiology: ordered. ECG/medicine tests: ordered and independent interpretation performed. Details: Sinus arrhythmia, normal axis, normal QTc, EKG interpreted by myself This patient's history, physical exam and any procedures were performed by the resident. On 10/05/2025 I saw and examined the patient. I discussed the history and examination with the resident and agree with the plan of care. In addition, I have fully participated in the care of this patient. I have reviewed all pertinent clinical information, including history, physical exam and medical decision making with the resident. Part of this documentation was created with voice recognition software and errors may have occurred. I was present for the documented procedures for the patient. Roberto Che MD 10/06/25 0200 [1] No past medical history on file. Roberto Che MD 10/06/25 0206 dEPARTMENT of Emergency Medicine CHIEF COMPLAINT Chest Pain and Palpitations HPI Ce Baer is a 40 y.o. male with past medical history of bipolar 1, BPH, migraine who presents with concerns to include palpitations, chest pressure, chest pain, dizziness, vision changes, swelling of hands and feet, skin changes, changes in sensation of his hands and feet. - Patient endorses multiple symptom. Bursts concern patient noted was 2 weeks of chest pain. The patient endorses chest pressure bilaterally in addition to sharp chest pain in the left side of his chest. The chest pressure is there constantly and then sharp chest pain lasts less than 30 seconds which occasionally doubles him over in pain and causes him to be short of breath. - During the episodes of chest pain patient occasionally has a blurring of vision and dizziness. - Patient also endorses that he feels like his heart is beating out of rhythm. Patient endorses being increasingly sensitive to caffeine and nicotine. Patient has stopped smoking recently and stopped drinking alcohol. - Patient also endorsed having changes of color of his skin. The patient is going to becomes erythematous with some areas of white blanching. The patient also noted increased prominence of vasculature with the skin color changes. Patient also endorsed swelling of the hands and feet in addition to numbness of his hands and feet during these episodes. - The patient also noted hyperhidrosis of the right axilla only. - Patient also endorsed having a history of GI concerns in his taking multiple medication to aid in defecation. - Physical exam was also notable for tongue discoloration of the posterior aspect of his tongue that appeared to be a brownish film. - Patient has been to move from for physicians to include vascular surgeon, sports medicine physician, primary care physician, ENT trauma oral surgeon, dentist for these concerns with no clear answers. REVIEW OF SYSTEMS Review of Systems PAST MEDICAL HISTORY Past Medical History[1] SURGICAL HISTORY Past Surgical History[2] CURRENT MEDICATIONS Current Medications[3] ALLERGIES Allergies[4] FAMILY HISTORY History reviewed. No pertinent family history. SOCIAL HISTORY Social History Socioeconomic History Marital status: Single Spouse name: Not on file Number of children: Not on file Years of education: Not on file Highest education level: Not on file Occupational History Not on file Tobacco Use Smoking status: Every Day Types: Cigarettes Passive exposure: Never Smokeless tobacco: Never Vaping Use Vaping status: Never Used Substance and Sexual Activity Alcohol use: Never Drug use: Never Sexual activity: Not on file Other Topics Concern Not on file Social History Narrative Not on file Social Drivers of Health Financial Resource Strain: Medium Risk (06/14/2025) Received from [facility] Overall Financial Resource Strain (CARDIA) Difficulty of Paying Living Expenses: Somewhat hard Food Insecurity: Food Insecurity Present (06/14/2025) Received from [facility] Hunger Vital Sign Within the past 12 months, you worried that your food would run out before you got the money to buy more.: Sometimes true Within the past 12 months, the food you bought just didn't last and you didn't have money to get more.: Sometimes true Transportation Needs: Unmet Transportation Needs (06/14/2025) Received from [facility] PRAPARE - Transportation Lack of Transportation (Medical): Yes Lack of Transportation (Non-Medical): Yes Physical Activity: Sufficiently Active (06/14/2025) Received from [facility] Exercise Vital Sign On average, how many days per week do you engage in moderate to strenuous exercise (like a brisk walk)?: 7 days On average, how many minutes do you engage in exercise at this level?: 80 min Stress: No Stress Concern Present (06/14/2025) Received from [facility] [employer] - Occupational Stress Questionnaire Feeling of Stress : Not at all Social Connections: Moderately Integrated (06/14/2025) Received from [facility] Social Connection and Isolation Panel In a typical week, how many times do you talk on the phone with family, friends, or neighbors?: Twice a week How often do you get together with friends or relatives?: Once a week How often do you attend roman catholic or holiness services?: More than 4 times per year Do you belong to any clubs or organizations such as roman catholic groups, unions, fraternal or athletic groups, or school groups?: Yes How often do you attend meetings of the clubs or organizations you belong to?: More than 4 times per year Are you , , , , never , or living with a partner?: Never Personal Safety: Not At Risk (06/14/2025) Received from [facility] Humiliation, Afraid, Rape, and Kick questionnaire Within the last year, have you been afraid of your partner or ex-partner?: No Within the last year, have you been humiliated or emotionally abused in other ways by your partner or ex-partner?: No Within the last year, have you been kicked, hit, slapped, or otherwise physically hurt by your partner or ex-partner?: No Within the last year, have you been raped or forced to have any kind of sexual activity by your partner or ex-partner?: No Housing Stability: High Risk (06/14/2025) Received from [facility] Housing Stability Vital Sign In the last 12 months, was there a time when you were not able to pay the mortgage or rent on time?: No In the past 12 months, how many times have you moved where you were living?: 1 At any time in the past 12 months, were you homeless or living in a mcfp (including now)?: Yes PHYSICAL EXAM BP (!) 156/97 Pulse 69 Temp 98.1 F (36.7 C) Resp 23 Ht 1.778 m (5' 10") SpO2 94% BMI 30.85 kg/m Smoking Status Every Day Physical Exam Constitutional: Appearance: He is well-developed. HENT: Head: Normocephalic. Comments: Brown film covering posterior aspect of tongue noted on exam. Eyes: Pupils: Pupils are equal, round, and reactive to light. Cardiovascular: Rate and Rhythm: Normal rate and regular rhythm. Heart sounds: Normal heart sounds. Pulmonary: Effort: Pulmonary effort is normal. Breath sounds: Normal breath sounds. Abdominal: General: Bowel sounds are normal. Palpations: Abdomen is soft. Musculoskeletal: Right lower leg: No edema. Left lower leg: No edema. Skin: General: Skin is warm and dry. Findings: No rash. Neurological: Mental Status: He is alert. ED COURSE & MEDICAL DECISION MAKING ED Course as of 10/06/25 0314 Wed Oct 05, 2025 2259 hs-Troponin I: 4 [facility] Oct 06, 2025 0109 BP(!): 156/97 0111 XR CHEST 1 VIEW PORTABLE Details Reading Physician Reading Date Result Priority Marceilno Han Jr., MD [phone] 10/06/2025 Narrative & Impression EXAM: XR CHEST 1 VIEW PORTABLE, 10/06/2025 01:03 AM COMPARISON: No prior studies available for comparison. CLINICAL INDICATIONS: chest pain FINDINGS: Implanted Devices: None. Lungs and Pleural Spaces: The lungs are clear. There is no pneumothorax or pleural effusion. Mediastinum/Anila: The anila and mediastinal contours are within normal limits. Cardiovascular: Heart size is within normal limits. Chest Wall: Normal. IMPRESSION IMPRESSION: No evidence of acute disease. Ce Baer is a 40 y.o. male with past medical history of bipolar 1, BPH, migraine who presents with concerns to include palpitations, chest pressure, chest pain, dizziness, vision changes, swelling of hands and feet, skin changes, changes in sensation of his hands and feet. Differential diagnosis includes but isn't limited to Raynaud's phenomenon, sinus arrhythmia, PVCs, autoimmune disorder, vasculopathy, anxiety . Patient is saw vascular surgeon on 09/27/2025 who noted of the patient does not have a primary vascular etiology. Laboratory workup was ordered. With humerus she had not show any acutely concerning findings. CBC was grossly normal. Chest x-ray did not show any acutely concerning findings. Patient's BNP and TSH were pending at the time he eloped. Medical Decision Making Amount and/or Complexity of Data Reviewed Labs: Decision-making details documented in ED Course. ECG/medicine tests: ordered. Clinical Calculators [1] No past medical history on file. [2] No past surgical history on file. [3] No current facility-administered medications for this encounter. Current Outpatient Medications Medication Sig Dispense Refill Albuterol Sulfate 108 (90 Base) MCG/ACT Aerosol Powder, breath activated Take 90 mcg by mouth as needed. NYSTATIN PO Take by mouth daily. Rinse Ondansetron 4 MG tablet Take 1 tablet by mouth Every 6 hours as needed. [4] Allergies Allergen Reactions Iodinated Diagnostic Agents Anaphylaxis Iodine I 131 Tositumomab Anaphylaxis Shellfish-Derived Products Anaphylaxis Sulfa Antibiotics Anaphylaxis Rash and sob Viri Francois MD Resident 10/06/25314 Bed: E041 Expected date: Expected time: Means of arrival: Comments: triage Pt comes in for complaints of chest pain and palpitations. Pt states that the pain and palpitations has been on going for the last two weeks. Pt notes a worsening in the palpitations over the last two days. Pt states that even when laying down he will feel fluttering in his chest which will in turn cause him to be short of breath. Pt is currently alert and oriented x4 with GCS 15. documented in this encounter [facility] 10-06-2025 Hospital Discharge instructions CRISTIANE Duran - 10/06/2025 1:56 AM EST Insurance Provided Transportation You have been discharged and will need to schedule transportation home with your insurance. Please use the following information to schedule a ride for "hospital discharge." Insurance provider & phone number: [facility] Medicare (HMO/PPO): [phone] Your Pickup address: [address] [place] [address]-Follow signs to ED entrance The following attachments cannot be sent through Care Everywhere.Palpitations ([place])documented in this encounter [facility] 10-06-2025 Emergency department Note Pt. Removed pulse ox, BP cuff, tele leads after speaking with attending and walked out of ER before tw could review discharge paperwork. [facility] 10-06-2025 Physician Emergency department Note ED Attending Chief Complaint Patient presents with Chest Pain Palpitations Past Medical History[1] Ce Baer is a 40 y.o. male presents with palpitations. Symptoms for two weeks, intermittent. Associated squeezing and stabbing sensation. Blurred vision and lightheadedness during episodes. height is 1.778 m (5' 10"). His temperature is 98.1 F (36.7 C). His blood pressure is 156/97 (abnormal) and his pulse is 69. His respiration is 23 and oxygen saturation is 94%. Review of Systems: All other systems were reviewed and were negative unless otherwise noted Differential diagnosis: Arrhythmia, ACS, PE, dissection, Raynaud's, anxiety Impression: Palpitations Plan: Medical Decision Making Initial plan for basic labs, EKG, cardiac markers, TSH, CXR, heart express referral. After discussing with patient, planned to add d-dimer, but patient refused any additional workup. Also discussed with he patient giving him outpatient BP medication, which he initially agreed to. However,t he patient abruptly changed his mood and behavior during out conversation and requested discharged. The patient took out his own IV and left the ED prior to providing final discharge plan and paperwork. TSH and BNP pending at time of patient elopement. Problems Addressed: Palpitations: acute illness or injury Amount and/or Complexity of Data Reviewed Labs: ordered. Radiology: ordered. ECG/medicine tests: ordered and independent interpretation performed. Details: Sinus arrhythmia, normal axis, normal QTc, EKG interpreted by myself This patient's history, physical exam and any procedures were performed by the resident. On 10/05/2025 I saw and examined the patient. I discussed the history and examination with the resident and agree with the plan of care. In addition, I have fully participated in the care of this patient. I have reviewed all pertinent clinical information, including history, physical exam and medical decision making with the resident. Part of this documentation was created with voice recognition software and errors may have occurred. I was present for the documented procedures for the patient. Roberto Che MD 10/06/25 0200 [1] No past medical history on file. Roberto Che MD 10/06/25 0206 [facility] 10-06-2025 Physician Emergency department Note dEPARTMENT of Emergency Medicine CHIEF COMPLAINT Chest Pain and Palpitations GILMER Baer is a 40 y.o. male with past medical history of bipolar 1, BPH, migraine who presents with concerns to include palpitations, chest pressure, chest pain, dizziness, vision changes, swelling of hands and feet, skin changes, changes in sensation of his hands and feet. - Patient endorses multiple symptom. Bursts concern patient noted was 2 weeks of chest pain. The patient endorses chest pressure bilaterally in addition to sharp chest pain in the left side of his chest. The chest pressure is there constantly and then sharp chest pain lasts less than 30 seconds which occasionally doubles him over in pain and causes him to be short of breath. - During the episodes of chest pain patient occasionally has a blurring of vision and dizziness. - Patient also endorses that he feels like his heart is beating out of rhythm. Patient endorses being increasingly sensitive to caffeine and nicotine. Patient has stopped smoking recently and stopped drinking alcohol. - Patient also endorsed having changes of color of his skin. The patient is going to becomes erythematous with some areas of white blanching. The patient also noted increased prominence of vasculature with the skin color changes. Patient also endorsed swelling of the hands and feet in addition to numbness of his hands and feet during these episodes. - The patient also noted hyperhidrosis of the right axilla only. - Patient also endorsed having a history of GI concerns in his taking multiple medication to aid in defecation. - Physical exam was also notable for tongue discoloration of the posterior aspect of his tongue that appeared to be a brownish film. - Patient has been to move from for physicians to include vascular surgeon, sports medicine physician, primary care physician, ENT trauma oral surgeon, dentist for these concerns with no clear answers. REVIEW OF SYSTEMS Review of Systems PAST MEDICAL HISTORY Past Medical History[1] SURGICAL HISTORY Past Surgical History[2] CURRENT MEDICATIONS Current Medications[3] ALLERGIES Allergies[4] FAMILY HISTORY History reviewed. No pertinent family history. SOCIAL HISTORY Social History Socioeconomic History Marital status: Single Spouse name: Not on file Number of children: Not on file Years of education: Not on file Highest education level: Not on file Occupational History Not on file Tobacco Use Smoking status: Every Day Types: Cigarettes Passive exposure: Never Smokeless tobacco: Never Vaping Use Vaping status: Never Used Substance and Sexual Activity Alcohol use: Never Drug use: Never Sexual activity: Not on file Other Topics Concern Not on file Social History Narrative Not on file Social Drivers of Health Financial Resource Strain: Medium Risk (06/14/2025) Received from [facility] Overall Financial Resource Strain (CARDIA) Difficulty of Paying Living Expenses: Somewhat hard Food Insecurity: Food Insecurity Present (06/14/2025) Received from [facility] Hunger Vital Sign Within the past 12 months, you worried that your food would run out before you got the money to buy more.: Sometimes true Within the past 12 months, the food you bought just didn't last and you didn't have money to get more.: Sometimes true Transportation Needs: Unmet Transportation Needs (06/14/2025) Received from [facility] PRAPARE - Transportation Lack of Transportation (Medical): Yes Lack of Transportation (Non-Medical): Yes Physical Activity: Sufficiently Active (06/14/2025) Received from [facility] Exercise Vital Sign On average, how many days per week do you engage in moderate to strenuous exercise (like a brisk walk)?: 7 days On average, how many minutes do you engage in exercise at this level?: 80 min Stress: No Stress Concern Present (06/14/2025) Received from [facility] [employer] - Occupational Stress Questionnaire Feeling of Stress : Not at all Social Connections: Moderately Integrated (06/14/2025) Received from [facility] Social Connection and Isolation Panel In a typical week, how many times do you talk on the phone with family, friends, or neighbors?: Twice a week How often do you get together with friends or relatives?: Once a week How often do you attend roman catholic or holiness services?: More than 4 times per year Do you belong to any clubs or organizations such as roman catholic groups, unions, fraternal or athletic groups, or school groups?: Yes How often do you attend meetings of the clubs or organizations you belong to?: More than 4 times per year Are you , , , , never , or living with a partner?: Never Personal Safety: Not At Risk (06/14/2025) Received from [facility] Humiliation, Afraid, Rape, and Kick questionnaire Within the last year, have you been afraid of your partner or ex-partner?: No Within the last year, have you been humiliated or emotionally abused in other ways by your partner or ex-partner?: No Within the last year, have you been kicked, hit, slapped, or otherwise physically hurt by your partner or ex-partner?: No Within the last year, have you been raped or forced to have any kind of sexual activity by your partner or ex-partner?: No Housing Stability: High Risk (06/14/2025) Received from [facility] Housing Stability Vital Sign In the last 12 months, was there a time when you were not able to pay the mortgage or rent on time?: No In the past 12 months, how many times have you moved where you were living?: 1 At any time in the past 12 months, were you homeless or living in a mcfp (including now)?: Yes PHYSICAL EXAM BP (!) 156/97 Pulse 69 Temp 98.1 F (36.7 C) Resp 23 Ht 1.778 m (5' 10") SpO2 94% BMI 30.85 kg/m Smoking Status Every Day Physical Exam Constitutional: Appearance: He is well-developed. HENT: Head: Normocephalic. Comments: Brown film covering posterior aspect of tongue noted on exam. Eyes: Pupils: Pupils are equal, round, and reactive to light. Cardiovascular: Rate and Rhythm: Normal rate and regular rhythm. Heart sounds: Normal heart sounds. Pulmonary: Effort: Pulmonary effort is normal. Breath sounds: Normal breath sounds. Abdominal: General: Bowel sounds are normal. Palpations: Abdomen is soft. Musculoskeletal: Right lower leg: No edema. Left lower leg: No edema. Skin: General: Skin is warm and dry. Findings: No rash. Neurological: Mental Status: He is alert. ED COURSE & MEDICAL DECISION MAKING ED Course as of 10/06/25 0314 Wed Oct 05, 2025 2259 hs-Troponin I: 4 [facility] Oct 06, 2025 0109 BP(!): 156/97 0111 XR CHEST 1 VIEW PORTABLE Details Reading Physician Reading Date Result Priority Marcelino Han Jr., MD [phone] 10/06/2025 Narrative & Impression EXAM: XR CHEST 1 VIEW PORTABLE, 10/06/2025 01:03 AM COMPARISON: No prior studies available for comparison. CLINICAL INDICATIONS: chest pain FINDINGS: Implanted Devices: None. Lungs and Pleural Spaces: The lungs are clear. There is no pneumothorax or pleural effusion. Mediastinum/Anila: The anila and mediastinal contours are within normal limits. Cardiovascular: Heart size is within normal limits. Chest Wall: Normal. IMPRESSION IMPRESSION: No evidence of acute disease. Ce Baer is a 40 y.o. male with past medical history of bipolar 1, BPH, migraine who presents with concerns to include palpitations, chest pressure, chest pain, dizziness, vision changes, swelling of hands and feet, skin changes, changes in sensation of his hands and feet. Differential diagnosis includes but isn't limited to Raynaud's phenomenon, sinus arrhythmia, PVCs, autoimmune disorder, vasculopathy, anxiety . Patient is saw vascular surgeon on 09/27/2025 who noted of the patient does not have a primary vascular etiology. Laboratory workup was ordered. With humerus she had not show any acutely concerning findings. CBC was grossly normal. Chest x-ray did not show any acutely concerning findings. Patient's BNP and TSH were pending at the time he eloped. Medical Decision Making Amount and/or Complexity of Data Reviewed Labs: Decision-making details documented in ED Course. ECG/medicine tests: ordered. Clinical Calculators [1] No past medical history on file. [2] No past surgical history on file. [3] No current facility-administered medications for this encounter. Current Outpatient Medications Medication Sig Dispense Refill Albuterol Sulfate 108 (90 Base) MCG/ACT Aerosol Powder, breath activated Take 90 mcg by mouth as needed. NYSTATIN PO Take by mouth daily. Rinse Ondansetron 4 MG tablet Take 1 tablet by mouth Every 6 hours as needed. [4] Allergies Allergen Reactions Iodinated Diagnostic Agents Anaphylaxis Iodine I 131 Tositumomab Anaphylaxis Shellfish-Derived Products Anaphylaxis Sulfa Antibiotics Anaphylaxis Rash and sob Viri Francois MD Resident 10/06/25314 [facility] Work Phone: 10-05-2025 Emergency department Note Bed: E041 Expected date: Expected time: Means of arrival: Comments: triage [facility] 10-05-2025 Note Acute Coronary Syndr ome (ACS): Initial Evaluation and Management: [email or web address] [facility] 10-05-2025 Emergency department Note Pt comes in for complaints of chest pain and palpitations. Pt states that the pain and palpitations has been on going for the last two weeks. Pt notes a worsening in the palpitations over the last two days. Pt states that even when laying down he will feel fluttering in his chest which will in turn cause him to be short of breath. Pt is currently alert and oriented x4 with GCS 15. [facility] 10-05-2025 History of Present illness Narrative Subjective Patient ID: Ce Baer is a 40 y.o. male who presents for Establish Care (EST NEW. C/O MUSCLE SPASMS ALL OVER BODY, TONGUE FEELS RAW AND HURTS WHOLE MOUTH SMITH SINCE MAY. HAS SEEN ENT ER AND DENTIST, PALPITATIONS WITH SOB AND DIZZINESS). HPI New pt . Has MULTIPLE COMPLAINTS . F/U AFTER RECENT ER VISIT FOR PALPITATIONS AND CHEST DISCOMFORT. HAS CHRONIC TONGUE DISCOLORATION WITH PAIN , NYSTATIN SOLUTION BY PREVIOUS PROVIDER HELPED SOME AT BEGINNING , SAW ENT AND WAS TOLD TONGUE WAS OK. HAD DENTIST VISIT , NO ABNORMALITY WAS FOUND PENDING ORAL SURGEON VISIT. HAD FOOT ABSCESS SEVERAL MONTHS AGO ,WHICH IS IMPROVED. BUT SINCE THEN HAS EDEMA OF LEGS AND PAIN OF ALL BODY. PT VIDEOTAPED HIS LEG FOR 3 MINUTES (WHEN HAD MUSCLE SPASM ) AND DEMANDED ME TO WATCH THE WHOLE 3 MINUTES AND WANTED ME TO TELL HIM (AFTER WATCHING THE 3 MINUTES VIDEO) WHAT CAUSED THE SPASM. HAS BEEN CHRONIC SMOKER , STOPPED 26 HOURS AGO. HAD CXR, LABS, BRAIN MRI DONE. Review of Systems Constitutional: Negative for chills and fever. HENT: Negative for congestion, postnasal drip and rhinorrhea. PER HPI. Eyes: Negative. Negative for visual disturbance. Respiratory: Negative for cough, shortness of breath and wheezing. Cardiovascular: Negative. Negative for chest pain, palpitations and leg swelling. Gastrointestinal: Negative. Negative for abdominal distention, abdominal pain, constipation, diarrhea, nausea and vomiting. Endocrine: Negative. Genitourinary: Negative for dysuria and urgency. Musculoskeletal: Positive for myalgias. Negative for back pain. MUSCLE CRAMPS Skin: Negative. Negative for rash. Allergic/Immunologic: Negative for immunocompromised state. Neurological: Negative. Negative for dizziness, weakness, light-headedness and headaches. Psychiatric/Behavioral: Negative. Negative for agitation. Objective Physical Exam Assessment/Plan 1. Excessive anger 2. Primary hypertension 3. Bipolar 1 disorder (Multi) 4. Tongue pain 5. Generalized body aches 6. Muscle cramps TEST RESULTS WERE DISCUSSED. I EXPLAINED THE NEED FOR DOING MORE INVESTIGATIONS TO ADDRESS HIS COMPLAINTS . PT DEMANDED ME TO SEE THE WHOLE 3 MINUTES VIDEO AND THEN TELL HIM THE CAUSE OF CRAMPS . I WATCHED SOME AND DIDN'T SEE ANY ABNORMALITY . I EXPLAINED CRAMP IS SUBJECTIVE FEELING AND I CAN'T SEE THAT . HE GOT VERY ANGEY AND SAID YOU ARE LIKE THE REST OF THEM , YOU DIDN'T WATCH LONG ENOUGH TO SEE THE CRAMPS " . I ASKED TO WATCH THE REST OF VIDEO AND HE REFUSED WITH ANGER. I EXPLAINED I CAN DO LABS TO RULE OUT DIFFERENT REASONS .HE GOT EXTREMELY UPSET AND SAID " I WILL COMPLAIN ABOUT YOU , YOU ARE LIKE THE REST OF THEM . ALL OF THE OTHER DOCTORS SAID NOTHING IS WRONG " AND STORMED OUT OF THE ROOM . PHYSICAL EXAM WASN'T DONE TODAY (PT REFUSED). I SPENT 20 MINUTES WITH THE PT ,REVIEWING THE CHART/ RESULTS , LISTENING TO HIS COMPLAINTS, WILL EXCUSE HIM FROM OUR PRACTICE FOR DISRESPECTFUL BEHAVIOR . documented in this encounter [facility] Work Phone: 09-29-2025 Hospital Discharge instructions Garth Aguilar DO - 09/29/2025 5:32 PM EDT Follow-up with Dr. Wilson from ENT about the discoloration of your tongue and follow-up with Dr. Lam from cardiology about your palpitations and chest tightness The following attachments cannot be sent through Care Everywhere.Chest Pain Discharge Instructions (Nigerien)Palpitations (Nigerien)documented in this encounter [facility] Work Phone: 09-29-2025 Physician Emergency department Note HPI No chief complaint on file. Patient presents to the emergency department secondary to chest tightness and palpitations. Present for weeks. Denies dyspnea or cough. History provided by: Patient technology applications consultant used: No Patient History Medical History[1] Surgical History[2] Family History[3] Social History[4] Physical Exam ED Triage Vitals Temp Pulse Resp BP -- -- -- -- SpO2 Temp src Heart Rate Source Patient Position -- -- -- -- BP Location FiO2 (%) -- -- Physical Exam Vitals and nursing note reviewed. Constitutional: General: He is not in acute distress. Appearance: Normal appearance. He is normal weight. He is not ill-appearing, toxic-appearing or diaphoretic. HENT: Head: Normocephalic and atraumatic. Nose: Nose normal. No rhinorrhea. Neck: Comments: Trachea is midline Cardiovascular: Rate and Rhythm: Normal rate and regular rhythm. Heart sounds: No murmur heard. Pulmonary: Effort: Pulmonary effort is normal. Breath sounds: Normal breath sounds. No wheezing. Abdominal: General: Abdomen is flat. Bowel sounds are normal. There is no distension. Palpations: Abdomen is soft. Tenderness: There is no abdominal tenderness. Musculoskeletal: General: Normal range of motion. Cervical back: Normal range of motion. Skin: General: Skin is warm and dry. Findings: No rash. Neurological: General: No focal deficit present. Mental Status: He is alert and oriented to person, place, and time. Mental status is at baseline. Psychiatric: Mood and Affect: Mood normal. Behavior: Behavior normal. Thought Content: Thought content normal. Judgment: Judgment normal. ED Course & MDM No data recorded Medical Decision Making Twelve-lead EKG was interpreted by myself this was noted to contribute directly to patient care. Study reveals a normal sinus rhythm at 89 bpm, normal axis, normal R wave progression, no acute ischemic changes, no S1 Q3 T3 is identified At the close of the encounter the patient was requesting that a examine his tongue. He states that he has had a intermittent fungal infection for many months. He saw a dentist and was awaiting referral to an oral surgeon. I examined inside of the patient's mouth and he has somewhat of a geographic tongue and a discolored area to the posterior aspect of his tongue which is dark in color. This does not appear to be Shayla. I will give the patient referral on an outpatient basis to ENT given that this is a chronic and ongoing condition. Malignancy is a possibility although I feel unlikely however I explained to the patient he should certainly follow-up and he understands this importance. In regards to the patient's chest tightness and perceived dysrhythmia I feel he can be discharged safely. He has a heart score of 0. He has exhibited no dysrhythmia while here in the emergency room. I feel the patient can be discharged. He will be given outpatient referral to cardiology as he may benefit from an event monitor. Patient was instructed return to the ER at any time if worse. Procedure Procedures [1] Past Medical History: Diagnosis Date Chronic constipation 2009 Chronic diarrhea 2009 Colon polyp 2019 Food intolerance 2009 Headache Hypertension Laceration of left index finger 02/15/2025 [2] Past Surgical History: Procedure Laterality Date NO PAST SURGERIES [3] Family History Problem Relation Name Age of Onset Asthma Brother 10 - 19 Diabetes Father 40 - 49 Stroke Father 40 - 49 Blood clot Father 40 - 49 Hypertension Mother 40 - 49 Arthritis Mother 40 - 49 Hearing loss Mother 40 - 49 Cirrhosis Maternal Grandmother Ana Perez 50 - 59 Cirrhosis Paternal Grandfather Sandro Baer 50 - 59 [4] Social History Tobacco Use Smoking status: Some Days Current packs/day: 0.25 Average packs/day: 0.3 packs/day for 17.3 years (4.4 ttl pk-yrs) Types: Cigarettes Smokeless tobacco: Never Tobacco comments: 12/04 ppd Vaping Use Vaping status: Never Used Substance Use Topics Alcohol use: Not Currently Comment: I quit drinking alcohol many years ago. Drug use: Not Currently Types: Marijuana Garth Aguilar DO 09/29/25 1731 [facility] Work Phone: 09-29-2025 Emergency department Note HPI No chief complaint on file. Patient presents to the emergency department secondary to chest tightness and palpitations. Present for weeks. Denies dyspnea or cough. History provided by: Patient technology applications consultant used: No Patient History Medical History[1] Surgical History[2] Family History[3] Social History[4] Physical Exam ED Triage Vitals Temp Pulse Resp BP -- -- -- -- SpO2 Temp src Heart Rate Source Patient Position -- -- -- -- BP Location FiO2 (%) -- -- Physical Exam Vitals and nursing note reviewed. Constitutional: General: He is not in acute distress. Appearance: Normal appearance. He is normal weight. He is not ill-appearing, toxic-appearing or diaphoretic. HENT: Head: Normocephalic and atraumatic. Nose: Nose normal. No rhinorrhea. Neck: Comments: Trachea is midline Cardiovascular: Rate and Rhythm: Normal rate and regular rhythm. Heart sounds: No murmur heard. Pulmonary: Effort: Pulmonary effort is normal. Breath sounds: Normal breath sounds. No wheezing. Abdominal: General: Abdomen is flat. Bowel sounds are normal. There is no distension. Palpations: Abdomen is soft. Tenderness: There is no abdominal tenderness. Musculoskeletal: General: Normal range of motion. Cervical back: Normal range of motion. Skin: General: Skin is warm and dry. Findings: No rash. Neurological: General: No focal deficit present. Mental Status: He is alert and oriented to person, place, and time. Mental status is at baseline. Psychiatric: Mood and Affect: Mood normal. Behavior: Behavior normal. Thought Content: Thought content normal. Judgment: Judgment normal. ED Course & MDM No data recorded Medical Decision Making Twelve-lead EKG was interpreted by myself this was noted to contribute directly to patient care. Study reveals a normal sinus rhythm at 89 bpm, normal axis, normal R wave progression, no acute ischemic changes, no S1 Q3 T3 is identified At the close of the encounter the patient was requesting that a examine his tongue. He states that he has had a intermittent fungal infection for many months. He saw a dentist and was awaiting referral to an oral surgeon. I examined inside of the patient's mouth and he has somewhat of a geographic tongue and a discolored area to the posterior aspect of his tongue which is dark in color. This does not appear to be Shayla. I will give the patient referral on an outpatient basis to ENT given that this is a chronic and ongoing condition. Malignancy is a possibility although I feel unlikely however I explained to the patient he should certainly follow-up and he understands this importance. In regards to the patient's chest tightness and perceived dysrhythmia I feel he can be discharged safely. He has a heart score of 0. He has exhibited no dysrhythmia while here in the emergency room. I feel the patient can be discharged. He will be given outpatient referral to cardiology as he may benefit from an event monitor. Patient was instructed return to the ER at any time if worse. Procedure Procedures [1] Past Medical History: Diagnosis Date Chronic constipation 2009 Chronic diarrhea 2009 Colon polyp 2019 Food intolerance 2009 Headache Hypertension Laceration of left index finger 02/15/2025 [2] Past Surgical History: Procedure Laterality Date NO PAST SURGERIES [3] Family History Problem Relation Name Age of Onset Asthma Brother 10 - 19 Diabetes Father 40 - 49 Stroke Father 40 - 49 Blood clot Father 40 - 49 Hypertension Mother 40 - 49 Arthritis Mother 40 - 49 Hearing loss Mother 40 - 49 Cirrhosis Maternal Grandmother Ana Perez 50 - 59 Cirrhosis Paternal Grandfather Sandro Baer 50 - 59 [4] Social History Tobacco Use Smoking status: Some Days Current packs/day: 0.25 Average packs/day: 0.3 packs/day for 17.3 years (4.4 ttl pk-yrs) Types: Cigarettes Smokeless tobacco: Never Tobacco comments: 12/04 ppd Vaping Use Vaping status: Never Used Substance Use Topics Alcohol use: Not Currently Comment: I quit drinking alcohol many years ago. Drug use: Not Currently Types: Marijuana Garth Aguilar DO 09/29/25 1731 documented in this encounter [facility] Work Phone: 09-27-2025 Note HNO ID: [id number] Author: JOHAN FAUST MD Service: ? Author Type: Physician Type: Progress Notes Filed: 09/27/2025 13:37 Note Text: [facility] Department of Cardiovascular Medicine SECTION OF VASCULAR MEDICINE OUTPATIENT VISIT DATE 09/27/2025 OUTPATIENT VISIT TYPE CONSULTATION Consult regarding: erythromelalgia Consult requested by: SELF Primary care physician: No primary care provider on file. History of present illness: 40yom. PMHx bipolar disorder, adenomatous polyps, IBS He has multiple c/o burning in feet, hands, discoloration throughout his body, localized swelling mostly in left foot but also in the thighs and trunk. He also describes veins that "bulge" intermittently in the dorsal aspect of the hands, as well as dorsum of the feet and medial aspect of lower legs. Review of pertinent outside records indicates: _ Recent appointment for fungal infection of the skin (foot ?) _ Patient indicated his apartment had mold; testing done in his apartment with results showing high levels of several fungi tested _ Several ED visits due to foot pain, athlete's foot c/b development of fever, chills, sweats, rigors and swelling of 4th and 5th toes => diagnosed and treated for foot cellulitis. _ On 03/17/25 seen [facility] ([place], [place]) ER for a pain between L 4th/th toes; apparently had I+D of foot abscess. He was prescribed oral antibiotics. Then had total body erythema/hives and skin desquamation consistent with sulfa allergy as per notes. _ PAtient stated to ED physicians that the foot has drained pus on a few occasions since then and becomes intermittently swollen and red in that area but then resolves _ Went to ED in [place] for CP but reportedly left AMA _ Diagnosed with pneumonia in the summer 2024. _ A note from [facility] 07/05/25 states that patient "had seen environmental doctors" who told him that he had multiple toxins in his body and antibiotic resistant infections in his lungs and skin. He left the ED as he c/o that he did not like the doctor's tone of voice and felt that he was not having symptoms addressed". MAY 2025 _ C/o rectal bleeding and hematuria, testicular pain; seen by Urology late MAY 2025 - Unremarkable ultrasound of the testicles with small bilateral hydroceles. _ Left-sided headaches/migraines, severe pain on the left side of the neck prompting a visit to the ED at [facility] () 07/18/25 _ Other symptoms listed include polyarthralgia's including elbows and knees, myalgias and exhaustion all the time. _ There is also c/o seizures due to "environmental toxins". _ Prior hx of alcohol abuse and in recovery since 2017. He had evaluation by Vascular Surgery at [facility] in MAY 2025 -- BLANK and TBI normal bilaterally. A concern was raised about Buerger's disease due to patient's h/o smoking cigarettes - as many as 3 ppD, but he tells me that he has cut down and does not smoke more than one pack daily. He also said that the vascular test was completed earlier than it should. He denies intermittent claudication, worsening leg pain at shorter distances, buttock pain with walking, resting leg pain, feet/ankle/toe ulcerations, leg pain with limb elevation, need to sleep with leg(s) in dependent position (eg, hanging from the side of the bed). He showed me dozens of pictures which he says were from his legs, hands, feet, arms. They mostly show veins around the ankles and dorsal aspect of the feet and hands. Some pictures were taken due to discoloration which I could not appreciate. He says that other providers told him he had "vascular disease'. Diagnoses such as Raynaud's, Buerger's disease, erythromelalgia, and "blood clots' were mentioned to him. Allergies: is allergic to iodine and shellfish derived. Medications: fexofenadine (VIVI ALLERGY) 180 mg tablet Take 1 tablet by mouth once daily. triamcinolone acetonide (NASACORT) 55 mcg nasal inhaler Use 2 Sprays in the nose once daily. Past medical history: has a past medical history of Adenomatous colon polyp, Bipolar 1 disorder (HCC) (07/21/2019), Depression, Headache, History of alcohol use disorder (2017), History of substance abuse ([facility]) (2004), and Hypertension (07/20/2019). Past surgical history: has a past surgical history that includes colonoscopy (04/02/2022) and egd (04/02/2022). Family history: family history includes Diabetes in his father, maternal grandfather, maternal grandmother, paternal grandfather, and paternal grandmother; Hypertension in his father and sister; Liver Disease in his maternal grandmother, paternal grandfather, and paternal grandmother; No Known Problems in his brother; Parkinsonism in his father; Psoriasis in his mother; Seizures in his father; Systemic Lupus Erythematosus in his mother and sister. Social history: reports that he has been smoking cigarettes. He has a 12 pack-year smoking hist (more content not included)... [facility] 08-03-2025 Telephone encounter Note Called pt and left VM as well as sent a MC message. [facility] 08-03-2025 Miscellaneous Notes Called pt and left VM as well as sent a MC message. Silver can you please obtain records from where patient was treated previously? Eugenia Christiansen RN August 03, 2025 9:43 AM ----- Message from Lucita Rios sent at 07/21/2025 10:33 AM EDT ----- Regarding: skin fungal infection .Patient has been identified by name and Date of : Yes Patient: Ce Baer II Date of : 1985 Provider for this encounter : bacterial/ skin fungal infection No primary care provider on file. Reason for call: Triage ##patient received treatment from prior sub specialist## Was an appointment scheduled: No Reason for requesting visit (RFV/signs and symptoms/diagnosis) : skin infection (all over body) Person calling: self Return call to: self Call patient at: at home [phone] (home) [phone] (cell) Payor: [facility] MEDICARE / Plan: [facility] DUAL COMPLETE HMO POS SNP / Product Type: Medicare / Lucita Agee documented in this encounter [facility] 08-03-2025 Telephone encounter Note Silver can you please obtain records from where patient was treated previously? Eugenia Christiansen RN August 03, 2025 9:43 AM [facility] 08-03-2025 Telephone encounter Note ----- Message from Lucita Rios sent at 07/21/2025 10:33 AM EDT ----- Regarding: skin fungal infection .Patient has been identified by name and Date of : Yes Patient: Ce Baer II Date of : 1985 Provider for this encounter : bacterial/ skin fungal infection No primary care provider on file. Reason for call: Triage ##patient received treatment from prior sub specialist## Was an appointment scheduled: No Reason for requesting visit (RFV/signs and symptoms/diagnosis) : skin infection (all over body) Person calling: self Return call to: self Call patient at: at home [phone] (home) [phone] (cell) Payor: [facility] MEDICARE / Plan: [facility] DUAL COMPLETE HMO POS SNP / Product Type: Medicare / Lucita Agee [facility] 07-29-2025 Evaluation + Plan note Associated Problem(s): Pain of foot - h/o abscess , most recently told has Shayla glabrata - Terbinafine, Fluconazole, Nystatin did not help, could not afford Itraconazole -Per chart review fungal antibody [id number]-[id number]-3/19/25 - Requesting referrals to specialists as below -Stated podiatry was unable to help Orders: Referral to Vascular Medicine; Future [facility] Work Phone: 07-29-2025 Evaluation + Plan note Associated Problem(s): Leg pain, bilateral - charley horses, "Livedo reticularis" , legs feel twisted up at times PVR as above - Per chart review 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 -patient stated not aware of this diagnosis Orders: Referral to Vascular Medicine; Future [facility] Work Phone: 07-29-2025 Evaluation + Plan note Associated Problem(s): Bipolar 1 disorder (Multi) - no recent MH support Not on meds, per chart review has been on Abilify and Vraylar in the past Denies Si/HI Orders: Referral to Psychiatry; Future [facility] Work Phone: 07-29-2025 Evaluation + Plan note Associated Problem(s): Obsessive-compulsive disorder - no recent MH support Not on meds, per chart review has been on Abilify and Vraylar in the past Denies Si/HI Orders: Referral to Psychiatry; Future [facility] Work Phone: 07-29-2025 History of Present illness Narrative Subjective Patient ID: Ce Baer is a 40 y.o. male who presents for Establish Care and Foot Pain. HPI NEW PT ([facility] patient-last PCP appointment ) scott Cuellar [employer] SPECIALIST- pt stated they dc him as a pt. as pt filed a recent complaint thru his advocate physical 06/22/2025 Here to establish. 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 Specialists: [facility]-infectious diseases- Hardik Anna MD (Please explain to Mr Baer that he !) does not have INVASIVE yeast infection, just mucocutaneous, and that other therapies for C glabrata would have more SE. 2) that acidic environment of stomach is required for absorption of Itraconazole. However, if he does not wish to take it, Nystatin swish and swallow 5 x per day typically kills C glabrata ) Behavioral health -bipolar 1-needs new referral Integrative/functional medicine-[facility] Thromboangiitis obliterans (Buerger's disease) - [facility] vascular- PVR normal at rest-exercise not performed due to pain at rest GI-Dr. Short CC : Ongoing foot issues - seen in ER - Shayla glabrata - Rx itraconazole ( too expensive , Terbinafine, Nystatin did not help) H/o foot abscess between 4th nad 5th toe Left Legs skin changing colors Thinks has delayed reaction to contrast dye Wants referrals to dermato, ID, vascular, neurology, rifle case repairer Review of Systems Constitutional: Positive for fatigue. Negative for appetite change, chills, fever and unexpected weight change. HENT: Positive for ear pain. Negative for congestion, hearing loss, sneezing, sore throat and trouble swallowing. Eyes: Negative for pain, discharge and visual disturbance. Respiratory: Positive for cough and shortness of breath. Cardiovascular: Positive for palpitations and leg swelling. Negative for chest pain. Gastrointestinal: Positive for abdominal pain and constipation. Negative for blood in stool, diarrhea, nausea and vomiting. Endocrine: Positive for cold intolerance and heat intolerance. Genitourinary: Positive for frequency and testicular pain (testicular US- varicocele). Negative for dysuria, flank pain, hematuria and urgency. Musculoskeletal: Positive for arthralgias, back pain, joint swelling and myalgias. Negative for gait problem. Skin: Positive for color change and rash. Negative for wound. Neurological: Positive for numbness and headaches. Negative for dizziness, tremors, seizures and syncope. Psychiatric/Behavioral: Positive for sleep disturbance. Negative for confusion and suicidal ideas. The patient is not nervous/anxious. Objective BP 137/72 Pulse 65 Temp 36.6 C (97.9 F) Ht 1.753 m (5' 9") Wt 97.7 kg (215 lb 4.8 oz) SpO2 98% BMI 31.79 kg/m Patient Health Questionnaire-2 Score: 0 Physical Exam Vitals and nursing note reviewed. Constitutional: General: He is not in acute distress. Appearance: Normal appearance. HENT: Head: Normocephalic and atraumatic. Right Ear: Tympanic membrane, ear canal and external ear normal. Left Ear: Tympanic membrane, ear canal and external ear normal. Nose: Nose normal. Mouth/Throat: Mouth: Mucous membranes are dry. Dentition: Abnormal dentition. Pharynx: Oropharynx is clear. Comments: Tongue has brown film Eyes: Extraocular Movements: Extraocular movements intact. Conjunctiva/sclera: Conjunctivae normal. Pupils: Pupils are equal, round, and reactive to light. Cardiovascular: Rate and Rhythm: Normal rate and regular rhythm. Heart sounds: No murmur heard. Pulmonary: Effort: Pulmonary effort is normal. No respiratory distress. Breath sounds: Normal breath sounds. No wheezing or rhonchi. Abdominal: General: Bowel sounds are normal. Palpations: Abdomen is soft. Tenderness: There is no abdominal tenderness. Musculoskeletal: General: Normal range of motion. Cervical back: Neck supple. Right lower leg: No edema. Left lower leg: No edema. Feet: Comments: Foot calluses Discoloration dorsal aspect Left foot No Edema Skin intact Skin: General: Skin is warm and dry. Findings: No bruising or rash. Neurological: General: No focal deficit present. Mental Status: He is alert and oriented to person, place, and time. Motor: No weakness. Gait: Gait normal. Psychiatric: Mood and Affect: Mood normal. Behavior: Behavior normal. Assessment/Plan Assessment & Plan Left foot pain - h/o abscess , most recently told has Shayla glabrata - Terbinafine, Fluconazole, Nystatin did not help, could not afford Itraconazole -Per chart review fungal antibody [id number]/19/25 - Requesting referrals to specialists as below -Stated podiatry was unable to help Orders: Referral to Vascular Medicine; Future Discoloration of skin of foot ? 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 -patient stated not aware of this diagnosis Orders: Referral to Vascular Medicine; Future Candidal skin infection - Reports failed all recent therapies -Has been seen by [facility] infectious diseases Orders: Referral to Dermatology Bipolar 1 disorder (Multi) Obsessive-compulsive disorder, unspecified type - no recent MH support Not on meds, per chart review has been on Abilify and Vraylar in the past Denies Si/HI Orders: Referral to Psychiatry; Future Allergic reaction to drug, sequela - pt reports delayed reaction to IV contrast dye ( felt warm inside during CT, and had generalized joints pain and felt like dying inside after couple days) - requesting allergy referral Orders: Referral to Allergy; Future RTC 4 months and PRN documented in this encounter [facility] Work Phone: 07-29-2025 Miscellaneous Notes Associated Problem(s): Pain of foot - h/o abscess , most recently told has Shayla glabrata - Terbinafine, Fluconazole, Nystatin did not help, could not afford Itraconazole -Per chart review fungal antibody [id number]/19/25 - Requesting referrals to specialists as below -Stated podiatry was unable to help Orders: Referral to Vascular Medicine; Future Associated Problem(s): Leg pain, bilateral - charley horses, "Livedo reticularis" , legs feel twisted up at times PVR as above - Per chart review 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 -patient stated not aware of this diagnosis Orders: Referral to Vascular Medicine; Future Associated Problem(s): Bipolar 1 disorder (Multi) - no recent MH support Not on meds, per chart review has been on Abilify and Vraylar in the past Denies Si/HI Orders: Referral to Psychiatry; Future Associated Problem(s): Obsessive-compulsive disorder - no recent MH support Not on meds, per chart review has been on Abilify and Vraylar in the past Denies Si/HI Orders: Referral to Psychiatry; Future documented in this encounter [facility] Work Phone: 07-29-2025 Telephone encounter Note Please explain to Mr Baer that he !) does not have INVASIVE yeast infection, just mucocutaneous, and that other therapies for C glabrata would have more SE. 2) that acidic environment of stomach is required for absorption of Itraconazole. However, if he does not wish to take it, Nystatin swish and swallow 5 x per day typically kills C glabrata. I am wondering if he took it 4-5 x day for at least 3 -4 d to give it a good chance of working. [facility] 07-29-2025 Miscellaneous Notes Please explain to Mr Baer that he !) does not have INVASIVE yeast infection, just mucocutaneous, and that other therapies for C glabrata would have more SE. 2) that acidic environment of stomach is required for absorption of Itraconazole. However, if he does not wish to take it, Nystatin swish and swallow 5 x per day typically kills C glabrata. I am wondering if he took it 4-5 x day for at least 3 -4 d to give it a good chance of working. documented in this encounter [facility] 07-28-2025 History of Present illness Narrative REASON FOR VISIT: Abdominal pain PCP (requesting provider): No primary care provider on file.. HPI: Ce Baer is a 40 y.o. male with a past medical history of bipolar disorder and HTN being evaluated for abdominal pain, change in bowel habits, and personal history of adenomatous colon polyps. CT A/P w/out contrast unremarkable (05/2025). Colonoscopy showed single adenoma and hemorrhoids (03/2022). EGD normal (03/2022). The patient notes abdominal bloating for many years. He also has alternating diarrhea and constipation. It is more recently constipation consistently. He has been having LUQ abdominal pain. The LUQ abdominal pain often times is post-prandial. He has abdominal cramping as well. No significant gas or flatulence. He had EGD and colonoscopy in 03/2022 for similar symptoms that was unrevealing. He feels symptoms worse since that time. He will take Dulcolax as needed for constipation. He has not tried taking Miralax on a consistent daily basis. No prior trial of anti-spasmodic. He had CT scan done last month. No heartburn or reflux. Does not feel symptoms are related to stress or anxiety. Mother reports patient seems fatigued. He does have to strain when constipated and will see spotting of blood rarely. PSurgHx: No abdominal surgeries FamHx: No GI cancer or IBD Prior Endoscopy: -Colonoscopy (03/2022): Good prep, normal TI, 5 mm sigmoid polyp (TA), small IH, otherwise normal colon. -EGD (03/2022): Normal esophagus, normal stomach (H. Pylori -), normal duodenum (normal duodenal biopsies). PAST MEDICAL HISTORY Medical History[1] PAST SURGICAL HISTORY Surgical History[2] FAMILY HISTORY Family History[3] SOCIAL HISTORY reports that he has been smoking cigarettes. He has a 4.4 pack-year smoking history. He has never used smokeless tobacco. He reports that he does not currently use alcohol. He reports that he does not currently use drugs. REVIEW OF SYSTEMS Review of Systems Respiratory: Negative for shortness of breath. Cardiovascular: Negative for chest pain. All other systems reviewed and are negative. A 10+ point review of systems was otherwise negative except as noted and per HPI. ALLERGIES Allergies[4] MEDICATIONS Current Outpatient Medications Medication Instructions albuterol 90 mcg/actuation inhaler 2 puffs, Every 4 hours PRN DIPHENHYDRAMINE/LIDOCAINE/NYSTATIN ORAL SUSPENSION (1:1:1) 1 mL, As needed fexofenadine (VIVI) 180 mg, Daily RT itraconazole (SPORANOX) 200 mg, Daily RT ondansetron (ZOFRAN) 4 mg, Every 6 hours PRN VITALS Vitals: 07/28/25 1320 Pulse: 68 Body mass index is 32.07 kg/m . PHYSICAL EXAM CONSTITUTIONAL: NAD, appears stated age EYES: anicteric sclera, sclera clear HEAD: normocephalic, atraumatic NECK: supple PULMONARY: CTAB CARDIOVASCULAR: RRR, no M/R/G appreciated ABDOMEN: soft, NTND, +BS, no rebound or guarding MUSCULOSKELETAL: no edema SKIN: no jaundice PSYCHIATRIC: AOx3, appropriate insight and judgement LABS WBC (x10*3/uL) Date Value 07/18/2025 8.1 Hemoglobin (g/dL) Date Value 07/18/2025 16.4 Platelets (x10*3/uL) Date Value 07/18/2025 194 Sodium (mmol/L) Date Value 07/18/2025 139 Potassium (mmol/L) Date Value 07/18/2025 4.3 Chloride (mmol/L) Date Value 07/18/2025 105 Bicarbonate (mmol/L) Date Value 07/18/2025 27 Urea Nitrogen (mg/dL) Date Value 07/18/2025 9 Creatinine (mg/dL) Date Value 07/18/2025 0.80 Calcium (mg/dL) Date Value 07/18/2025 9.3 Total Protein (g/dL) Date Value 07/18/2025 6.2 (L) Bilirubin, Total (mg/dL) Date Value 07/18/2025 0.4 Alkaline Phosphatase (U/L) Date Value 07/18/2025 43 ALT (U/L) Date Value 07/18/2025 9 (L) AST (U/L) Date Value 07/18/2025 17 Glucose (mg/dL) Date Value 07/18/2025 98 C-Reactive Protein (mg/dL) Date Value 07/18/2025 0.35 ASSESSMENT/PLAN Ce Baer is a 40 y.o. male with a past medical history of bipolar disorder and HTN being evaluated for abdominal pain, change in bowel habits, and personal history of adenomatous colon polyps. CT A/P w/out contrast unremarkable (05/2025). Colonoscopy showed single adenoma and hemorrhoids (03/2022). EGD normal (03/2022). Patient with longstanding issues with abdominal cramping and bloating as well as constipation (previously diarrhea). Prior work-up for same issues including endoscopies, imaging, and labs was reassuring. We discussed the diagnosis of IBS-C. Other differential includes SIBO. We will trial a regimen of Miralax and anti-spasmodic. He will also work on a Low FODMAP diet. We will plan to do this regimen for a few months and then reassess. -Start Miralax 17 g daily and then titrate dose to have a soft bowel movement once daily without having to strain -Trial of Dicyclomine 20 mg QID PRN and advised patient not to take this medication immediately prior to driving as it may cause drowsiness -Advised Low FODMAP diet (handout provided) -If no improvement with the above, then consider hydrogen breath test to evaluate for SIBO -Due for surveillance colonoscopy in 03/2027 Follow-up in the office in 2 months. Signature: Kobi Short MD [1] Past Medical History: Diagnosis Date Chronic constipation 2009 Chronic diarrhea 2009 Colon polyp 2019 Food intolerance 2009 Headache Hypertension [2] No past surgical history on file. [3] Family History Problem Relation Name Age of Onset Asthma Brother 10 - 19 Diabetes Father 40 - 49 Stroke Father 40 - 49 Blood clot Father 40 - 49 Hypertension Mother 40 - 49 Arthritis Mother 40 - 49 Hearing loss Mother 40 - 49 Cirrhosis Maternal Grandmother Ana Perez 50 - 59 Cirrhosis Paternal Grandfather Sandro Baer 50 - 59 [4] Allergies Allergen Reactions Shellfish Containing Products Anaphylaxis Sulfa (Sulfonamide Antibiotics) Anaphylaxis Rash and sob Iodine Rash documented in this encounter [facility] Work Phone: 07-28-2025 Instructions Kobi Short MD - 07/28/2025 1:30 PM EDT Start Miralax 17 grams (1 capful) mixed with 8 ounces of juice or water once daily. Increase or decrease the dose as needed to have a single bowel movement once daily without having to strain. Use Dicyclomine 20 mg taken up to 4 times per day as needed for abdominal bloating and cramping. Do not take this medication immediately prior to driving as it may cause drowsiness. Consider a Low FODMAP diet (handout). Follow-up in the office in 2 months. documented in this encounter [facility] Work Phone: 07-25-2025 Telephone encounter Note I am not sure who prescribed Fluconazole for Ce's thrush but it typically is not active against C. Glabrata. I will write a short course of Itraconazole for him and it needs to be taken daily with an acidic juice, like grapefruit juice, for the best absorption It is hard to cure a oral yeast infection in a smoker as the chemicals in cigarettes do local immune harm in the mouth/throat. Please call him and explain. [facility] 07-25-2025 Miscellaneous Notes I am not sure who prescribed Fluconazole for Ce's thrush but it typically is not active against C. Glabrata. I will write a short course of Itraconazole for him and it needs to be taken daily with an acidic juice, like grapefruit juice, for the best absorption It is hard to cure a oral yeast infection in a smoker as the chemicals in cigarettes do local immune harm in the mouth/throat. Please call him and explain. documented in this encounter [facility] 07-25-2025 Note FYI patient schedule d with PCP 07/27/25. Should patient wait for referral until discussed with New PCP? [facility] 07-25-2025 Telephone encounter Note FYI patient scheduled with PCP 07/27/25. Should patient wait for referral until discussed with New PCP? [facility] 07-25-2025 Miscellaneous Notes FYI patient scheduled with PCP 07/27/25. Should patient wait for referral until discussed with New PCP? Name of caller: Ce (Also Heather from [facility]) Contact phone number: [phone] Relationship to Patient: patient (also [facility]) Provider: Alisa Practice: [facility] Chief Complaint/Reason for Call: Needs new referral with update. 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 Needs to state his legs, feet, and knees has swelling. His skin is blanching. Referral is going to [facility]. Attention Garth Marr. Best time of day caller can be reached: any Patient advised that office/PCP has 24-48 business hours to return their call: Yes documented in this encounter [facility] 07-22-2025 Telephone encounter Note Name of caller: Ce (Also Heather from [facility]) Contact phone number: [phone] Relationship to Patient: patient (also [facility]) Provider: Alisa Practice: [facility] Chief Complaint/Reason for Call: Needs new referral with update. 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 Needs to state his legs, feet, and knees has swelling. His skin is blanching. Referral is going to [facility]. Attention Garth Marr. Best time of day caller can be reached: any Patient advised that office/PCP has 24-48 business hours to return their call: Yes [facility] 07-21-2025 Telephone encounter Note Message released to patient as written. Yes Patient's further questions if applicable: Transferred the patient to the office for previsit planning. Were all questions from office addressed or relayed to the patient from encounter: Yes [facility] 07-21-2025 Miscellaneous Notes Message released to patient as written. Yes Patient's further questions if applicable: Transferred the patient to the office for previsit planning. Were all questions from office addressed or relayed to the patient from encounter: Yes Attempting to reach patient for Pre Charting. If patient returns call, please put call thru to office. Thank You documented in this encounter [facility] 07-21-2025 Telephone encounter Note Attempting to reach patient for Pre Charting. If patient returns call, please put call thru to office. Thank You [facility] 07-19-2025 Note Tho, Would you please add an additional diagnosis for the Dermatology referral. Please advise. Thank you [facility] 07-19-2025 Telephone encounter Note Tho, Would you please add an additional diagnosis for the Dermatology referral. Please advise. Thank you [facility] 07-19-2025 Miscellaneous Notes Tho, Would you please add an additional diagnosis for the Dermatology referral. Please advise. Thank you Name of caller: Ce Contact phone number: [phone] Relationship to Patient: Self Provider: Practice: [facility] Chief Complaint/Reason for Call: Pt is claiming that he is wanting orders for CT Scan of Chest and US PVR Testing he currently has a CT of head scheduled but was told that when he found out he dont need a prior auth then he could schedule sooner and would like to have the orders placed so he could try to schedule for the same day please advise Best time of day caller can be reached: any Patient advised that office/PCP has 24-48 business hours to return their call: No documented in this encounter [facility] 07-18-2025 Physician Emergency department Note HPI Chief Complaint Patient presents with Migraine Complains of migraine on and off for 2 weeks and intermittent CP as well. Complains of throbbing in the left side of his latter day and throat. States that its not hurting now, but it was on the way here 40-year-old male presents with a plethora of complaints. Main complaint is a headache or migraine for the last 2 to 3 months. Patient is also complaining of a fungal lesion on his left foot between 4th and 5th toe. Patient also has some oral thrush which grew out 2 different Shayla organisms. I spoke with this patient at length along with family members to try to determine etiologies of these complaints. Patient states that symptoms started in March. 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 I did go over the MRI with the patient. Patient does not want anything for his headache. Patient will be given a dose of Diflucan 200 mg p.o. and referred back to his family medical doctor. History provided by: Patient and parent Patient History Medical History[1] Surgical History[2] Family History[3] Social History[4] Physical Exam ED Triage Vitals Temperature Heart Rate Respirations BP 07/18/25202807/18/25202707/18/25202707/18/252027 36.7 C (98.1 F) 63 18 151/85 Pulse Ox Temp Source Heart Rate Source Patient Position 07/18/25202707/18/25202807/18/252027 -- 96 % Oral Monitor BP Location FiO2 (%) -- -- Physical Exam Vitals and nursing note reviewed. Constitutional: Appearance: Normal appearance. HENT: Head: Normocephalic and atraumatic. Mouth/Throat: Mouth: Mucous membranes are moist. Comments: Oral thrush covering the tongue Eyes: Extraocular Movements: Extraocular movements intact. Pupils: Pupils are equal, round, and reactive to light. Cardiovascular: Rate and Rhythm: Normal rate and regular rhythm. Pulmonary: Effort: Pulmonary effort is normal. Breath sounds: Normal breath sounds. Abdominal: Palpations: Abdomen is soft. Musculoskeletal: General: Normal range of motion. Cervical back: Normal range of motion and neck supple. Skin: General: Skin is warm and dry. Findings: Erythema present. Comments: Chafing and mild erythema between the left 4th and 5th toes. Neurovascular is intact. Neurological: General: No focal deficit present. Mental Status: He is alert and oriented to person, place, and time. Labs Reviewed COMPREHENSIVE METABOLIC PANEL - Abnormal Result Value Glucose 98 Sodium 139 Potassium 4.3 Chloride 105 Bicarbonate 27 Anion Gap 11 Urea Nitrogen 9 Creatinine 0.80 eGFR >90 Calcium 9.3 Albumin 4.3 Alkaline Phosphatase 43 Total Protein 6.2 (*) AST 17 Bilirubin, Total 0.4 ALT 9 (*) LACTATE - Normal Lactate 0.7 Narrative: Venipuncture immediately after or during the administration of Metamizole may lead to falsely low results. Testing should be performed immediately prior to Metamizole dosing. C-REACTIVE PROTEIN - Normal C-Reactive Protein 0.35 SEDIMENTATION RATE, AUTOMATED - Normal Sedimentation Rate 2 CBC WITH AUTO DIFFERENTIAL WBC 8.1 nRBC 0.0 RBC 5.15 Hemoglobin 16.4 Hematocrit 47.2 MCV 92 MCH 31.8 MCHC 34.7 RDW 12.0 Platelets 194 Neutrophils % 60.5 Immature Granulocytes %, Automated 0.2 Lymphocytes % 26.5 Monocytes % 10.1 Eosinophils % 2.1 Basophils % 0.6 Neutrophils Absolute 4.89 Immature Granulocytes Absolute, Automated 0.02 Lymphocytes Absolute 2.15 Monocytes Absolute 0.82 Eosinophils Absolute 0.17 Basophils Absolute 0.05 TROPONIN I, HIGH SENSITIVITY FUNGAL CULTURE, BLOOD ([facility]) MR brain w and wo IV contrast Final Result Slightly low lying cerebellar tonsils object 3 mm without evidence of obstructive hydrocephalus. No abnormal enhancement or the intracranial signal identified MACRO: None Signed by: Margoth Wisdom 07/18/2025 11:12 PM Dictation workstation: [id number] ED Course & MDM ED Course as of 07/18/252342Jul 18, 2025 210 Twelve-lead EKG interpreted by myself at 2030 1 normal sinus rhythm at 64 2 normal axis 3 no ectopy [MS] ED Course User Index [MS] Chloé Ruggiero DO Diagnoses as of 07/18/252342 Oral thrush Thrush Tinea corporis Nonintractable headache, unspecified chronicity pattern, unspecified headache type No data recorded [place] Coma Scale Score: 15 (07/18/25 2141 : Jacquelyn Elkins RN) Medical Decision Making 1 take medication as prescribed 2 resume home medication 3 follow-up with trimming cutter machine, if worse return to ED. Procedure Procedures [1] Past Medical History: Diagnosis Date Hypertension [2] No past surgical history on file. [3] No family history on file. [4] Social History Tobacco Use Smoking status: Every Day Current packs/day: 0.50 Types: Cigarettes Smokeless tobacco: Never Vaping Use Vaping status: Never Used Substance Use Topics Alcohol use: Not on file Drug use: Never Chloé Ruggiero DO 07/18/252342 [facility] Work Phone: 07-18-2025 Emergency department Note HPI Chief Complaint Patient presents with Migraine Complains of migraine on and off for 2 weeks and intermittent CP as well. Complains of throbbing in the left side of his latter day and throat. States that its not hurting now, but it was on the way here 40-year-old male presents with a plethora of complaints. Main complaint is a headache or migraine for the last 2 to 3 months. Patient is also complaining of a fungal lesion on his left foot between 4th and 5th toe. Patient also has some oral thrush which grew out 2 different Shayla organisms. I spoke with this patient at length along with family members to try to determine etiologies of these complaints. Patient states that symptoms started in March. 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 I did go over the MRI with the patient. Patient does not want anything for his headache. Patient will be given a dose of Diflucan 200 mg p.o. and referred back to his family medical doctor. History provided by: Patient and parent Patient History Medical History[1] Surgical History[2] Family History[3] Social History[4] Physical Exam ED Triage Vitals Temperature Heart Rate Respirations BP 07/18/25202807/18/25202707/18/25202707/18/252027 36.7 C (98.1 F) 63 18 151/85 Pulse Ox Temp Source Heart Rate Source Patient Position 07/18/25202707/18/25202807/18/252027 -- 96 % Oral Monitor BP Location FiO2 (%) -- -- Physical Exam Vitals and nursing note reviewed. Constitutional: Appearance: Normal appearance. HENT: Head: Normocephalic and atraumatic. Mouth/Throat: Mouth: Mucous membranes are moist. Comments: Oral thrush covering the tongue Eyes: Extraocular Movements: Extraocular movements intact. Pupils: Pupils are equal, round, and reactive to light. Cardiovascular: Rate and Rhythm: Normal rate and regular rhythm. Pulmonary: Effort: Pulmonary effort is normal. Breath sounds: Normal breath sounds. Abdominal: Palpations: Abdomen is soft. Musculoskeletal: General: Normal range of motion. Cervical back: Normal range of motion and neck supple. Skin: General: Skin is warm and dry. Findings: Erythema present. Comments: Chafing and mild erythema between the left 4th and 5th toes. Neurovascular is intact. Neurological: General: No focal deficit present. Mental Status: He is alert and oriented to person, place, and time. Labs Reviewed COMPREHENSIVE METABOLIC PANEL - Abnormal Result Value Glucose 98 Sodium 139 Potassium 4.3 Chloride 105 Bicarbonate 27 Anion Gap 11 Urea Nitrogen 9 Creatinine 0.80 eGFR >90 Calcium 9.3 Albumin 4.3 Alkaline Phosphatase 43 Total Protein 6.2 (*) AST 17 Bilirubin, Total 0.4 ALT 9 (*) LACTATE - Normal Lactate 0.7 Narrative: Venipuncture immediately after or during the administration of Metamizole may lead to falsely low results. Testing should be performed immediately prior to Metamizole dosing. C-REACTIVE PROTEIN - Normal C-Reactive Protein 0.35 SEDIMENTATION RATE, AUTOMATED - Normal Sedimentation Rate 2 CBC WITH AUTO DIFFERENTIAL WBC 8.1 nRBC 0.0 RBC 5.15 Hemoglobin 16.4 Hematocrit 47.2 MCV 92 MCH 31.8 MCHC 34.7 RDW 12.0 Platelets 194 Neutrophils % 60.5 Immature Granulocytes %, Automated 0.2 Lymphocytes % 26.5 Monocytes % 10.1 Eosinophils % 2.1 Basophils % 0.6 Neutrophils Absolute 4.89 Immature Granulocytes Absolute, Automated 0.02 Lymphocytes Absolute 2.15 Monocytes Absolute 0.82 Eosinophils Absolute 0.17 Basophils Absolute 0.05 TROPONIN I, HIGH SENSITIVITY FUNGAL CULTURE, BLOOD (ARUP) MR brain w and wo IV contrast Final Result Slightly low lying cerebellar tonsils object 3 mm without evidence of obstructive hydrocephalus. No abnormal enhancement or the intracranial signal identified MACRO: None Signed by: Margoth Wisdom 07/18/2025 11:12 PM Dictation workstation: [id number] ED Course & [facility] ED Course as of 07/18/252342Jul 18, 20252100 Twelve-lead EKG interpreted by myself at 2030 1 normal sinus rhythm at 64 2 normal axis 3 no ectopy [MS] ED Course User Index [MS] Chloé Magallanes Torrie, DO Diagnoses as of 07/18/25 2343 Oral thrush Thrush Tinea corporis Nonintractable headache, unspecified chronicity pattern, unspecified headache type No data recorded Norma Coma Scale Score: 15 (07/18/25 2141 : Jacquelyn Elkins RN) Medical Decision Making 1 take medication as prescribed 2 resume home medication 3 follow-up with trimming cutter machine, if worse return to ED. Procedure Procedures [1] Past Medical History: Diagnosis Date Hypertension [2] No past surgical history on file. [3] No family history on file. [4] Social History Tobacco Use Smoking status: Every Day Current packs/day: 0.50 Types: Cigarettes Smokeless tobacco: Never Vaping Use Vaping status: Never Used Substance Use Topics Alcohol use: Not on file Drug use: Never Chloé Ruggiero DO 07/18/25 4851 documented in this encounter [facility] Work Phone: 07-15-2025 Telephone encounter Note Name of caller: Ce Contact phone number: [phone] Relationship to Patient: [facility] Provider: Practice: [facility] Chief Complaint/Reason for Call: Pt is claiming that he is wanting orders for CT Scan of Chest and US PVR Testing he currently has a CT of head scheduled but was told that when he found out he dont need a prior auth then he could schedule sooner and would like to have the orders placed so he could try to schedule for the same day please advise Best time of day caller can be reached: any Patient advised that office/PCP has 24-48 business hours to return their call: No [facility] [employer] 07-15-2025 Telephone encounter Note Name of caller: Jermaine Contact phone number: [phone] or [phone] Relationship to Patient: [facility] Provider: Dr. Izquierdo Practice: [facility] Chief Complaint/Reason for Call: Jermaine called to inform office that a PA is not required for CT scan. Best time of day caller can be reached: any Patient advised that office/PCP has 24-48 business hours to return their call: N/A [facility] [employer] 07-15-2025 Miscellaneous Notes Name of caller: Jermaine Contact phone number: [phone] or [phone] Relationship to Patient: [facility] Provider: Dr. Izquierdo Practice: [facility] Chief Complaint/Reason for Call: Jermaine called to inform office that a PA is not required for CT scan. Best time of day caller can be reached: any Patient advised that office/PCP has 24-48 business hours to return their call: N/A Name of caller: Ce Contact phone number: [phone] Relationship to Patient: patient Provider: Alisa Practice: [facility] Chief Complaint/Reason for Call: Patient reported that because his order is not STAT the soonest he can be scheduled for the CT head is 08/02/25. Patient is concerned about this being so far out. Also, patient was wondering if the PVR testing included his ankle, toe, wrist and finger. Please call patient back. Best time of day caller can be reached: Any Patient advised that office/PCP has 24-48 business hours to return their call: No documented in this encounter [facility] [employer] 07-15-2025 Telephone encounter Note Name of caller: Ce Contact phone number: [phone] Relationship to Patient: patient Provider: Alisa Practice: [facility] Chief Complaint/Reason for Call: Patient reported that because his order is not STAT the soonest he can be scheduled for the CT head is 08/02/25. Patient is concerned about this being so far out. Also, patient was wondering if the PVR testing included his ankle, toe, wrist and finger. Please call patient back. Best time of day caller can be reached: Any Patient advised that office/PCP has 24-48 business hours to return their call: No [facility] [employer] 07-14-2025 Telephone encounter Note Please let Mr Baer know that he has a thrush (yeast) infection with Shayla glabrata and I recommend using Nystatin swish and swallow 4 x a day as directed, for 10 d - I want him to please call me after end of therapy to see if his thrush is improved- script sent ot his pharmacy [facility] [employer] 07-14-2025 Miscellaneous Notes Please let Mr Baer know that he has a thrush (yeast) infection with Shayla glabrata and I recommend using Nystatin swish and swallow 4 x a day as directed, for 10 d - I want him to please call me after end of therapy to see if his thrush is improved- script sent ot his pharmacy documented in this encounter 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 Ariza (vascular surgeon) that PCP needs to order vascular testing as he thinks symptoms are related to lymphedema, patient is not pleased with this and wants vascular testing ordered Patient denies: one sided weakness or numbness Home care tried/alleviating factors: Tylenol ES not helpful R: Tangential in conversation, needed frequent redirecting. Advised a HP TE would be sent to provider for review and recommendations. Home care advice reviewed with the patient per protocol: advised to never take another's prescription medications along with rationale, cold pack Patient verbalizes understanding. Advised patient to call back with new or worsening symptoms. Reason for Disposition SEVERE headache (e.g., excruciating) and has had severe headaches before Protocols used: [id number] 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 Ariza (vascular surgeon) that PCP needs to order vascular testing as he thinks symptoms are related to lymphedema, patient is not pleased with this and wants vascular testing ordered Patient denies: one sided weakness or numbness Home care tried/alleviating factors: Tylenol ES not helpful R: Tangential in conversation, needed frequent redirecting. Advised a HP TE would be sent to provider for review and recommendations. Home care advice reviewed with the patient per protocol: advised to never take another's prescription medications along with rationale, cold pack Patient verbalizes understanding. Advised patient to call back with new or worsening symptoms. Reason for Disposition SEVERE headache (e.g., excruciating) and has had severe headaches before Protocols used: [id number] S: [facility] Symptoms/Concerns: unrelenting migraine for months - can feel his temples throb B: Per nurse triage ticket created by [facility]ALS A: Patient disconnected prior to speaking with nurse. No answer upon return call to patient x 1 R: Left voice message for patient to call the office if assistance is still needed. Reason for Disposition Message left on identified voicemail Protocols used: No Contact or Duplicate Contact [id number] documented in this encounter [facility] 07-14-2025 Telephone encounter Note S: [facility] regarding Symptoms/Concerns: unrelenting migraine for months - can feel his temples throb B: Per nurse triage ticket created by [facility] A: Patient disconnected prior to speaking with nurse. No answer upon return call to patient x 1 R: Left voice message for patient to call the office if assistance is still needed. Reason for Disposition Message left on identified voicemail Protocols used: No Contact or Duplicate Contact [id number] [facility] 07-13-2025 Telephone encounter Note Name of caller: Ce Contact phone number: [phone] Relationship to Patient: patient Provider: Dr. Izquierdo Practice: [facility] Chief Complaint/Reason for Call: Ce called in regarding his urethra urology referral. He is requesting that the referral be faxed to the [facility], Dermatology at [phone]. He stated they need pathology results, labs & clinical notes included in the fax with the referral. Please advise, thank you! Best time of day caller can be reached: any Patient advised that office/PCP has 24-48 business hours to return their call: No [facility] 07-13-2025 Miscellaneous Notes Name of caller: Ce Contact phone number: [phone] Relationship to Patient: patient Provider: Dr. Izquierdo Practice: [facility] Chief Complaint/Reason for Call: Ce called in regarding his urethra urology referral. He is requesting that the referral be faxed to the [facility], Dermatology at [phone]. He stated they need pathology results, labs & clinical notes included in the fax with the referral. Please advise, thank you! Best time of day caller can be reached: any Patient advised that office/PCP has 24-48 business hours to return their call: No documented in this encounter [facility] 07-12-2025 Note Tho, Would you mind placing new external referrals for Gastroenterology and Vascular Surgeon. Patient would like to be seen at [facility]. Thank you, [facility] 07-11-2025 Note Please forward his m ychart message. I will need the fax numbers to send his referrals. Thank you [facility] 07-11-2025 Telephone encounter Note Please forward his mychart message. I will need the fax numbers to send his referrals. Thank you [facility] 07-11-2025 Miscellaneous Notes Please forward his [place] message. I will need the fax numbers to send his referrals. Thank you Name of caller: Ce Contact phone number: [phone] Relationship to Patient: patient Provider: Dr. Izquierdo Practice: [facility] Chief Complaint/Reason for Call: Patient requesting referrals for Vascular Surgery and Gatroenterology to be faxed to [facility]. Patient states will send fax numbers through [employer]. Please advise. Best time of day caller can be reached: any Patient advised that office/PCP has 24-48 business hours to return their call: Yes documented in this encounter [facility] 07-11-2025 Telephone encounter Note Name of caller: Ce Contact phone number: [phone] Relationship to Patient: patient Provider: Dr. Izquierdo Practice: [facility] Chief Complaint/Reason for Call: Patient requesting referrals for Vascular Surgery and Gatroenterology to be faxed to [facility]. Patient states will send fax numbers through [employer]. Please advise. Best time of day caller can be reached: any Patient advised that office/PCP has 24-48 business hours to return their call: Yes 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 Cuellar HISTORY OF PRESENTILLNESS: Mr. Baer is a 40 year old gentleman who presented to clinic to evaluate his extremities for vascular disease. He has a complex past history regarding his current issues which are best summed up in Dr. Anna note from 07/04/25. To summarize, lived in apartment with mold and got some toxins in his blood, left there in August. January started having scrotal swelling, worked up. Then in March diagnosed with athlete's foot (left) then eventually a staph infection, which draining abscess in his 4th web space. He had redness with prolong blanching and foot pain. These have progressively worsened. With redness noted more prominent veins as well. Pain best described as throbbing and difficult to walk no. He denies cramps/massiel horses. He also has numbness/tingling from knee down. This has subsequently starting happening in other leg. Also, having numbness and tingling from elbows down. Other symptoms include redness/streaks of red on chest and upper legs as well, more protuberant abdomen, bloating/feeling full quicker, chest pain but says he has had that for awhile (years) like when he takes, palpatations, right axilla sweating. He smoked 3 ppd up until recently then cutdown and stop smoking yesterday. Past Medical History: Medical History[1] Past SurgicalHistory: Surgical History[2] Current Medications: Prior to Admission medications Medication Sig Start Date End Date Taking? Authorizing Provider doxycycline (Vibramycin) 100 MG capsule Take 1 capsule (100 mg) by mouth 2 times daily for 7 days. Take with at least 8 ounces (large glass) of water, do not lie down for 30 minutes after 06/23/25 07/04/25 TATE Burr CNP meloxicam (Mobic) 15 MG tablet Take 1 tablet (15 mg) by mouth daily. Take with food or milk. Do not take additional NSAIDs with this medication Patient not taking: Reported on 07/04/2025 06/27/25 07/27/25 Scott Santamaria MD pantoprazole (ProtoNix) 40 MG EC tablet Take 1 tablet (40 mg) by mouth 2 times daily. Do not crush, chew, or split. Patient not taking: Reported on 07/04/2025 06/28/25 08/27/25 TATE Burr CNP Allergies: Iodinated contrast media, Sulfa antibiotics, and Iodine Social History Socioeconomic History Marital status: Single Spouse name: Not on file Number of children: Not on file Years of education: Not on file Highest education level: Not on file Occupational History Not on file Tobacco Use Smoking status: Former Types: Cigarettes Start date: 07/10/2010 Passive exposure: Current Smokeless tobacco: Current Vaping Use Vaping status: Never Used Substance and Sexual Activity Alcohol use: Never Drug use: Not Currently Sexual activity: Not Currently Other Topics Concern Not on file Social History Narrative Not on file Social Drivers of Health Financial Resource Strain: Medium Risk (06/14/2025) Overall Financial Resource Strain (CARDIA) Difficulty of Paying Living Expenses: Somewhat hard Food Insecurity: Food Insecurity Present (06/14/2025) Hunger Vital Sign Worried About Running Out of Food in the Last Year: Sometimes true Ran Out of Food in the Last Year: Sometimes true Transportation Needs: Unmet Transportation Needs (06/14/2025) PRAPARE - Transportation Lack of Transportation (Medical): Yes Lack of Transportation (Non-Medical): Yes Physical Activity: Sufficiently Active (06/14/2025) Exercise Vital Sign Days of Exercise per Week: 7 days Minutes of Exercise per Session: 80 min Stress: No Stress Concern Present (06/14/2025) [employer] - Occupational Stress Questionnaire Feeling of Stress : Not at all Social Connections: Moderately Integrated (06/14/2025) Social Connection and Isolation Panel [NHANES] Frequency of Communication with Friends and Family: Twice a week Frequency of Social Gatherings with Friends and Family: Once a week Attends [employer] Services: More than 4 times per year Active Member of Clubs or Organizations: Yes Attends Club or Organization Meetings: More than 4 times per year Marital Status: Never Intimate Partner Violence: Not At Risk (06/14/2025) Humiliation, Afraid, Rape, and Kick questionnaire Fear of Current or Ex-Partner: No Emotionally Abused: No Physically Abused: No Sexually Abused: No Housing Stability: High Risk (06/14/2025) Housing Stability Vital Sign Unable to Pay for Housing in the Last Year: No Number of Times Moved in the Last Year: 1 Homeless in the Last Year: Yes Family History[3] Review of Systems Constitutional: Positive for fever. HENT: Negative. Eyes: Positive for visual disturbance (sometimes get double vision). Cardiovascular: Positive for leg swelling (ankles and feet swelling). Gastrointestinal: Negative. Endocrine: Negative. Genitourinary: Positive for hematuria (states traces amount of blood in urnine). Musculoskeletal: Positive for back pain (low back pain and upper back), myalgias (pain in both legs and feet), neck pain and neck stiffness (middle of neck going up base to head). Skin: Positive for color change (c/o of red streaking going up and down legs since infection in March) and pallor (excessive sweating under right arm). Allergic/Immunologic: Negative. Neurological: Positive for weakness (left side of body) and numbness (arms, hands, legs and feet). Hematological: Negative. Psychiatric/Behavioral: Negative. LABS: Lab Results Component Value Date CREATININE 0.80 06/15/2025 Lab Results Component Value Date WBC 8.8 06/15/2025 HGB 17.1 06/15/2025 HCT 47.1 06/15/2025 MCV 88.7 06/15/2025 PLT 224 06/15/2025 No results found for: "INR", PROTIME No results found for: "VLDL" Physical Exam General: no apparent distress, resting comfortably, easily ambulates in room Neurologic: no focal deficits Respiratory: normal respiratory effort on room air Cardiac: regular rate and rhythm Extremity: mild pedal edema (L>R),, ROM intact Vascular: - palpable radial pulses bilaterally - right ulnar pulse palpable - triphasic palmar arch signal bilatarally - palpable pedal pulses bilaterally - multiphasic DP signals bilaterally IMPRESSION/RECOMMENDATIONS: 40M with broad constellation of symptoms with an unclear diagnosis. He has palpable pulses to the level of the ankles and wrist bilaterally. This would suggest that if he has any arterial vascular disease with would be distal to these areas (ie hands and feet). He does not claudicate. Redness may be thrombophlebitis. 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 This is a rare disease. I recommend PVR with BLANK & TBI as well as PVR with WBI & DBI for all his extremities. I also like CTA chest/abd/pelvis/runoff to rule out aortic thrombi and look at proximal vasculature as well but patient has anaphylactic or anaphylactic like reaction to contrast thus I decided to not get that imaging. PVRs with BI's is usually enough to determine level of vascular disease if present and is non invasive. It is first step for all atherosclerosis obliterans (PAD) patients. Patient wanted an angiography. I told him I would not give him contrast. He asked about other agents. I told him there is CO2 but below the knee and particularly in the feet the imaging is poor. Additionally, it wouldn't change anything (no intervention). This is an invasive procedure so I'd prefer to do non invasive PVRs with BI's. He was not happy with this answer. Lastly, I told him if he stopped smoking, he should get better if he has thromboangiitis obliterans which is another reason to not di an invasive test. At this point patient was unhappy, walked out of the room, then left the office. I tried to stop him so I could order testing for him be he left, thus I will not order any testing. PCP can order LE PVR with BLANK and TBI as well as UE PVR with WBI and DBIs at their discretion. I spent over 30 minutes in room with patient, and another 30 minutes chart reviewing and refreshing knowledge of disease. Joycelyn Ariza MD Vascular Surgery 07/11/2025 12:01 PM [1] Past Medical History: Diagnosis Date Class 1 obesity with body mass index (BMI) of 32.0 to 32.9 in adult 07/04/2025 Fungal infection Hx of epididymitis right Staphylococcosis [2] History reviewed. No pertinent surgical history. [3] Family History Problem Relation Name Age of Onset Psoriasis Mother Hypertension Mother Arthritis Mother Parkinson's Disease Father Alzheimer's disease Father Epilepsy Father Diabetes type II Father documented in this encounter 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 Cuellar HISTORY OF PRESENTILLNESS: Mr. Baer is a 40 year old gentleman who presented to clinic to evaluate his extremities for vascular disease. He has a complex past history regarding his current issues which are best summed up in Dr. Anna note from 07/04/25. To summarize, lived in apartment with mold and got some toxins in his blood, left there in August. January started having scrotal swelling, worked up. Then in March diagnosed with athlete's foot (left) then eventually a staph infection, which draining abscess in his 4th web space. He had redness with prolong blanching and foot pain. These have progressively worsened. With redness noted more prominent veins as well. Pain best described as throbbing and difficult to walk no. He denies cramps/massiel horses. He also has numbness/tingling from knee down. This has subsequently starting happening in other leg. Also, having numbness and tingling from elbows down. Other symptoms include redness/streaks of red on chest and upper legs as well, more protuberant abdomen, bloating/feeling full quicker, chest pain but says he has had that for awhile (years) like when he takes, palpatations, right axilla sweating. He smoked 3 ppd up until recently then cutdown and stop smoking yesterday. Past Medical History: Medical History[1] Past SurgicalHistory: Surgical History[2] Current Medications: Prior to Admission medications Medication Sig Start Date End Date Taking? Authorizing Provider doxycycline (Vibramycin) 100 MG capsule Take 1 capsule (100 mg) by mouth 2 times daily for 7 days. Take with at least 8 ounces (large glass) of water, do not lie down for 30 minutes after 06/23/25 07/04/25 TATE Burr CNP meloxicam (Mobic) 15 MG tablet Take 1 tablet (15 mg) by mouth daily. Take with food or milk. Do not take additional NSAIDs with this medication Patient not taking: Reported on 07/04/2025 06/27/25 07/27/25 Scott Santamaria MD pantoprazole (ProtoNix) 40 MG EC tablet Take 1 tablet (40 mg) by mouth 2 times daily. Do not crush, chew, or split. Patient not taking: Reported on 07/04/2025 06/28/25 08/27/25 TATE Burr CNP Allergies: Iodinated contrast media, Sulfa antibiotics, and Iodine Social History Socioeconomic History Marital status: Single Spouse name: Not on file Number of children: Not on file Years of education: Not on file Highest education level: Not on file Occupational History Not on file Tobacco Use Smoking status: Former Types: Cigarettes Start date: 07/10/2010 Passive exposure: Current Smokeless tobacco: Current Vaping Use Vaping status: Never Used Substance and Sexual Activity Alcohol use: Never Drug use: Not Currently Sexual activity: Not Currently Other Topics Concern Not on file Social History Narrative Not on file Social Drivers of Health Financial Resource Strain: Medium Risk (06/14/2025) Overall Financial Resource Strain (CARDIA) Difficulty of Paying Living Expenses: Somewhat hard Food Insecurity: Food Insecurity Present (06/14/2025) Hunger Vital Sign Worried About Running Out of Food in the Last Year: Sometimes true Ran Out of Food in the Last Year: Sometimes true Transportation Needs: Unmet Transportation Needs (06/14/2025) PRAPARE - Transportation Lack of Transportation (Medical): Yes Lack of Transportation (Non-Medical): Yes Physical Activity: Sufficiently Active (06/14/2025) Exercise Vital Sign Days of Exercise per Week: 7 days Minutes of Exercise per Session: 80 min Stress: No Stress Concern Present (06/14/2025) [employer] - Occupational Stress Questionnaire Feeling of Stress : Not at all Social Connections: Moderately Integrated (06/14/2025) Social Connection and Isolation Panel [NHANES] Frequency of Communication with Friends and Family: Twice a week Frequency of Social Gatherings with Friends and Family: Once a week Attends [employer] Services: More than 4 times per year Active Member of Clubs or Organizations: Yes Attends Club or Organization Meetings: More than 4 times per year Marital Status: Never Intimate Partner Violence: Not At Risk (06/14/2025) Humiliation, Afraid, Rape, and Kick questionnaire Fear of Current or Ex-Partner: No Emotionally Abused: No Physically Abused: No Sexually Abused: No Housing Stability: High Risk (06/14/2025) Housing Stability Vital Sign Unable to Pay for Housing in the Last Year: No Number of Times Moved in the Last Year: 1 Homeless in the Last Year: Yes Family History[3] Review of Systems Constitutional: Positive for fever. HENT: Negative. Eyes: Positive for vi (more content not included)... [facility] 07-08-2025 Telephone encounter Note . [facility] 07-08-2025 Miscellaneous Notes . documented in this encounter [facility] 07-08-2025 Telephone encounter Note Name of caller: Ce Baer Relationship to patient: patient Contact phone number: [phone] Speciality referral requested for: Vascular specialist Diagnosis or reason for referral: Patient stated that they saw infectious disease and was told that issue with toes and feet is circulation. 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 Patient stated that hands are red, with discoloration, numbness, and tingling of legs, arms, feet, and hands. Patient stated that they have had what feels like a bad migraine for months, and toes on both feet are not swollen and red. Patient requesting this referral as soon as possible. Name of specialist: Any Name of group/practice: Any vascular Patient verified insurance covers referral: Unknown Patient insurance: [facility] Medicare/Medicaid Has patient seen this specialist in the past: No Estimated time/date patient last saw the specialist: NA [facility] 07-08-2025 Miscellaneous Notes Name of caller: Ce Baer Relationship to patient: patient Contact phone number: [phone] Speciality referral requested for: Vascular specialist Diagnosis or reason for referral: Patient stated that they saw infectious disease and was told that issue with toes and feet is circulation. 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 Patient stated that hands are red, with discoloration, numbness, and tingling of legs, arms, feet, and hands. Patient stated that they have had what feels like a bad migraine for months, and toes on both feet are not swollen and red. Patient requesting this referral as soon as possible. Name of specialist: Any Name of group/practice: Any vascular Patient verified insurance covers referral: Unknown Patient insurance: [facility] Medicare/Medicaid Has patient seen this specialist in the past: No Estimated time/date patient last saw the specialist: LUCY documented in this encounter [facility] 07-07-2025 Telephone encounter Note Please let Mr Baer know that I spent at least 30 min this morning reviewing mycotoxins and his reports. It appears that mycotoxins can be inhaled or ingested and may be toxic to gut/lungs but not months after the exposure is removed. Mycotoxins are all over the environment and we all may have small levels of them, so the reports I saw on your testing were not seriously out of the normal range. I don't think mycotoxins have anything to do of why you are feeling so unwell. The testicular issues should be addressed by urology as I discussed that a cyst was found and as well as some vascular changes they should address. I also have suspicions that the foot issues may be circulation related to your smoking but not infection as inflammatory marker was normal, and no evidence of lupus or rheumatoid by initial blood tests (a larger panel could be ordered by your PCP but it is not my area of expertise) I am still awaiting the foot xray to confirm no bone infection that could be recurring. [facility] 07-07-2025 Miscellaneous Notes Please let Mr Baer know that I spent at least 30 min this morning reviewing mycotoxins and his reports. It appears that mycotoxins can be inhaled or ingested and may be toxic to gut/lungs but not months after the exposure is removed. Mycotoxins are all over the environment and we all may have small levels of them, so the reports I saw on your testing were not seriously out of the normal range. I don't think mycotoxins have anything to do of why you are feeling so unwell. The testicular issues should be addressed by urology as I discussed that a cyst was found and as well as some vascular changes they should address. I also have suspicions that the foot issues may be circulation related to your smoking but not infection as inflammatory marker was normal, and no evidence of lupus or rheumatoid by initial blood tests (a larger panel could be ordered by your PCP but it is not my area of expertise) I am still awaiting the foot xray to confirm no bone infection that could be recurring. documented in this encounter [facility] 07-04-2025 History of Present illness Narrative Images from the original note were not included. [facility] Infectious Diseases Attending Outpatient Consult Note Reason for Consult: recurrent L foot cellulitis Requesting Physician: HIPOLITO Arredondo Chief Complaint Patient presents with New Patient Cellulitis L foot HISTORY OF PRESENT ILLNESS The patient is a 40 y.o. male with presenting with a history of recurrent L foot infections recently. Mr Ce Baer presents with a plethora of issues that he feels stem from toxin exposure to mold in his prior apartment. He has had testing done on his apartment with results showing high levels of several fungi tested, and has had his urine tested by [facility] for toxins where were positive for several (see reports in Media section). Though I admit to not being familiar with those toxin assays, I do understand that the environmental tests confirmed the presents of molds in higher than safe levels. I did try to focus on the foot which he presented with concerns for recurrent infection. He had been to several different ER's and he feels that this was not properly addressed. The first time he states that they told him he had athlete's foot infection but after taking the prescribed creams, he developed fever, sweats, and rigors, with swelling of foot bryanna in 4th /5th web spaces and red streaks up his left lateral leg. 03/17/25 seen [facility] ([place], [place]) ER for a pain between L 4th/th toes He returned to the ED where report states he had I and D of abscess, but he states that the doctor came in and pressed hard on the tissue, pus squirted out, no cultures were taken and the cavity not completely drained. He was given Keflex and bactrim. He took meds as directed, but returned to the ED w/c/o Sob and atypical CP and discharged after he had normal CXR and EKG. Then had total body erythema/hives and skin desquamation consistent with sulfa allergy He states that the foot has drained pus on a few occasions since then and becomes intermittently swollen and red in that area but then resolves. Pictures he shows me of the foot show discoloration and swelling. Then went to [facility] ED on 03/19/25 with CP but left w/o evaluation. That is when his parents took him to [place] for evaluation and was diagnosed with pneumonia He went to [facility] ED on 06/15/25 for c/o rectal bleeding and blood in urine. He told ER physician that he had seen "environmental doctors" who told him that he had multiple toxins in his body and antibiotic resistant infections in his lungs and skin. He left the ED as he c/o that he did not like the doctor's tone of voice and felt that he was not having symptoms addressed. He has been seeing Urology for bilateral testicular pain, bryanna R sided and was not aware of 06/29/25 scrotal US findings IMPRESSION: 1. Unremarkable ultrasound of the testicles with small bilateral hydroceles. 2. Small bilateral varicoceles with what appears to be some small areas of thrombus. 3. Right epididymal cysts, largest 2.6 cm (unchanged in size since outside exam of 03/12/2025). Electronically Signed By: Erickson Lui MD 06/30/2025 Other issues are new severe neck pain radiating into back of his head, with neck an lower back pain as well as polyarthralgia's including elbows and knees, myalgias and exhaustion all the time. He states that he is not taking any medication now, bryanna not his meds for Bipolar disorder and states that these are not his typical symptoms of his mood disorder. Most concerning are the drenching night sweats he states he is having in the past month or more. He is not taking his temps but feels warm and like his skin is burning on occasion. He has had neuropathic feelings of intermittent numbness in the L arm, but has hyper hydrosis only in the R axilla (verified by exam). He denies any vision symptoms suggestive of MS, or asymmetric weakness to suggest transverse myelitis, and has no family hx of hemochromatosis or blood disorders such as Polycythemia Rubra Vera (note Hb is 17 but he is a smoker??) States he had a new onset of convulsions that this was following his dog being diagnosed with new onset generalized seizures. This added to concerns for environmental toxins that precipitated mold and toxin testing. States this was not investigated in ED at the time and he was discharged without further investigation. He is now living with his parents after being told he had to leave his apartment for fumigation, but had an eviction notice the same day he moved out. Appeal of issue placed but he was told to seek Psychiatric care, per patient. Foot now does not reflect active signs of infection. (Picture below) Prior hx of alcohol abuse and in recovery since 2018. Has not been sexually active in 10 yrs per patient and prior HIV testing was negative but willing to get retested due to immune function concerns, and has no hx of syphilis. Extensive chart review shows records in 2021 at [facility] documenting prior episodes of low energy, excessive sleep, irritability, low motivation, vague generalized pain, chronic pain and numbness in his fingers (was dropping things). He denied to me ever feeling bad prior to 6 mos ago so I am not sure what to make of this Note that his mother has both Psoriasis and SLE,and his sister has SLE. He had a negative NAVEED on 07/01/25, and negative Lyme and Rheumatoid factor on 06/24/25. We had a very long discussion of need to r/o infection with his hx of drenching night sweats as well as consideration of Lymphoma though with normal CR{ today of 3.3, both are not likely. Will order BC and Erythropoietin level for screen for PRV, but ferritin was normal so not likely to have hemachromatosis to explain elevated Hb and joint pain. Also ordered foot xray to evaluate for any signs of osteo Medical History[1] Surgical History[2] Current Medications[3] Allergies[4] Social History Socioeconomic History Marital status: Single Spouse name: Not on file Number of children: Not on file Years of education: Not on file Highest education level: Not on file Occupational History Not on file Tobacco Use Smoking status: Every Day Types: Cigarettes Passive exposure: Current Smokeless tobacco: Current Vaping Use Vaping status: Never Used Substance and Sexual Activity Alcohol use: Never Drug use: Not Currently Sexual activity: Not Currently Other Topics Concern Not on file Social History Narrative Not on file Social Drivers of Health Financial Resource Strain: Medium Risk (06/14/2025) Overall Financial Resource Strain (CARDIA) Difficulty of Paying Living Expenses: Somewhat hard Food Insecurity: Food Insecurity Present (06/14/2025) Hunger Vital Sign Worried About Running Out of Food in the Last Year: Sometimes true Ran Out of Food in the Last Year: Sometimes true Transportation Needs: Unmet Transportation Needs (06/14/2025) PRAPARE - Transportation Lack of Transportation (Medical): Yes Lack of Transportation (Non-Medical): Yes Physical Activity: Sufficiently Active (06/14/2025) Exercise Vital Sign Days of Exercise per Week: 7 days Minutes of Exercise per Session: 80 min Stress: No Stress Concern Present (06/14/2025) [employer] - Occupational Stress Questionnaire Feeling of Stress : Not at all Social Connections: Moderately Integrated (06/14/2025) Social Connection and Isolation Panel [NHANES] Frequency of Communication with Friends and Family: Twice a week Frequency of Social Gatherings with Friends and Family: Once a week Attends [employer] Services: More than 4 times per year Active Member of Clubs or Organizations: Yes Attends Club or Organization Meetings: More than 4 times per year Marital Status: Never Intimate Partner Violence: Not At Risk (06/14/2025) Humiliation, Afraid, Rape, and Kick questionnaire Fear of Current or Ex-Partner: No Emotionally Abused: No Physically Abused: No Sexually Abused: No Housing Stability: High Risk (06/14/2025) Housing Stability Vital Sign Unable to Pay for Housing in the Last Year: No Number of Times Moved in the Last Year: 1 Homeless in the Last Year: Yes Family History[5] Review of Systems Constitutional: Positive for activity change, appetite change, diaphoresis and fatigue. Negative for chills, fever and unexpected weight change. Only R axillary dyshydrosis HENT: Negative. Eyes: Negative. Respiratory: Positive for cough, chest tightness and shortness of breath. Cardiovascular: Positive for chest pain. Negative for palpitations and leg swelling. No pedal edema though intermittent calf swelling Gastrointestinal: Positive for blood in stool, constipation and diarrhea. Negative for abdominal pain. Hx of IBS symptoms but more constipation lately Genitourinary: Positive for hematuria, scrotal swelling and testicular pain. Negative for dysuria, enuresis, flank pain and urgency. Musculoskeletal: Positive for arthralgias, back pain, myalgias and neck pain. Negative for gait problem and neck stiffness. Skin: Positive for color change. Negative for pallor, rash and wound. States he gets intermittent dark brown areas of his skin of legs and this is seen on the photo's he took Allergic/Immunologic: Positive for environmental allergies. Negative for immunocompromised state. Neurological: Positive for seizures and headaches. Negative for numbness. Hematological: Negative for adenopathy. Psychiatric/Behavioral: Positive for agitation. Negative for confusion and self-injury. The patient is nervous/anxious. The patient is not hyperactive. Vitals: 07/04/25 1304 BP: 128/72 BP Location: Left arm Patient Position: Sitting BP Cuff Size: Adult Pulse: 62 Temp: 36.2 C (97.2 F) TempSrc: Temporal SpO2: 99% Weight: 99.1 kg (218 lb 6.4 oz) Height: 1.753 m (5' 9") Physical Exam Vitals and nursing note reviewed. Constitutional: General: He is not in acute distress. Appearance: He is ill-appearing. He is not toxic-appearing or diaphoretic. Comments: Presents today with fatigued appearance, Pleasant calm and presents a good cohesive history. Noted to have BMI of 31. HENT: Head: Normocephalic and atraumatic. Nose: Nose normal. No congestion or rhinorrhea. Mouth/Throat: Mouth: Mucous membranes are dry. Pharynx: Oropharyngeal exudate present. Comments: Tongue with thick white exudate- culture taken for yeast. Eyes: General: No scleral icterus. Right eye: No discharge. Left eye: No discharge. Extraocular Movements: Extraocular movements intact. Conjunctiva/sclera: Conjunctivae normal. Pupils: Pupils are equal, round, and reactive to light. Neck: Vascular: No carotid bruit. Comments: Had very wet R axillary area of amy shirt but dry L side R axilla had a very small 1 cm anterior axillary node but no L sided nodes felt. Cardiovascular: Rate and Rhythm: Normal rate and regular rhythm. Pulses: Normal pulses. Heart sounds: Normal heart sounds. No murmur heard. No friction rub. No gallop. Pulmonary: Effort: Pulmonary effort is normal. No respiratory distress. Breath sounds: Normal breath sounds. No wheezing, rhonchi or rales. Chest: Chest wall: No tenderness. Abdominal: General: There is no distension. Palpations: Abdomen is soft. There is no mass. Tenderness: There is no abdominal tenderness. There is no guarding or rebound. Comments: No organomegaly Musculoskeletal: General: Tenderness present. No swelling or deformity. Normal range of motion. Cervical back: Normal range of motion and neck supple. No rigidity or tenderness. Right lower leg: No edema. Left lower leg: No edema. Comments: Small scab that was tender at intertriginous space of L 4th/5th toes. No swelling, redness or fluctuance noted. Lymphadenopathy: Cervical: No cervical adenopathy. Skin: Coloration: Skin is not jaundiced. Findings: No bruising, erythema, lesion or rash. Neurological: General: No focal deficit present. Mental Status: He is oriented to person, place, and time. Motor: No weakness. Coordination: Coordination normal. Gait: Gait normal. Psychiatric: Comments: Appeared anxious and distressed but not at all agitated Office Visit on 07/04/2025 Component Date Value Ref Range Status C REACTIVE PROTEIN 07/04/2025 3.3 <5.0 mg/L Final FERRITIN 07/04/2025 119 22 - 275 ng/mL Final Blood Culture 07/04/2025 Blood culture incubation started Preliminary Blood Culture 07/04/2025 Blood culture incubation started Preliminary Orders Only on 06/28/2025 Component Date Value Ref Range Status VITAMIN D,25-OH,TOTAL,IA -[facility] 07/01/2025 33 30 - 100 ng/mL Final VITAMIN B12 07/01/2025 353 200 - 1,100 pg/mL Final CORTISOL, TOTAL- [facility] 07/01/2025 5.6 mcg/dL Final NAVEED SCREEN, IFA - [facility] 07/01/2025 NEGATIVE NEGATIVE Final Office Visit on 06/22/2025 Component Date Value Ref Range Status TSH 06/24/2025 0.84 0.40 - 4.50 mIU/L Final TESTOSTERONE, TOTAL, MS 06/24/2025 652 250 - 1,100 ng/dL Final TESTOSTERONE, FREE 06/24/2025 43.2 (L) 46.0 - 224.0 pg/mL Final TESTOSTERONE,BIOAVAILABLE 06/24/2025 88.8 (L) 110.0 - 575.0 ng/dL Final SEX HORMONE BINDING GLOBULIN 06/24/2025 75 (H) 10 - 50 nmol/L Final ALBUMIN - [facility] 06/24/2025 4.5 3.6 - 5.1 g/dL Final Lyme Ab Screen 06/24/2025 <=0.90 <=0.90 Index Final LIPASE 06/24/2025 39 7 - 60 U/L Final RHEUMATOID FACTOR 06/24/2025 <10 <14 IU/mL Final CHOLESTEROL, TOTAL 06/24/2025 123 <200 mg/dL Final HDL CHOLESTEROL 06/24/2025 38 (L) > OR = 40 mg/dL Final TRIGLYCERIDES 06/24/2025 66 <150 mg/dL Final LDL-CHOLESTEROL 06/24/2025 70 mg/dL (calc) Final CHOL/HDLC RATIO 06/24/2025 3.2 <5.0 (calc) Final NON HDL CHOLESTEROL 06/24/2025 85 <130 mg/dL (calc) Final Admission on 06/15/2025, Discharged on 06/15/2025 Component Date Value Ref Range Status SODIUM 06/15/2025 138 136 - 145 mmol/L Final POTASSIUM 06/15/2025 4.2 3.5 - 5.1 mmol/L Final CHLORIDE 06/15/2025 106 98 - 107 mmol/L Final CARBON DIOXIDE 06/15/2025 21 (L) 22 - 29 mmol/L Final ANION GAP 06/15/2025 11 3 - 13 mmol/L Final UREA NITROGEN 06/15/2025 12 8 - 21 mg/dL Final CREATININE 06/15/2025 0.80 0.72 - 1.25 mg/dL Final GLUCOSE 06/15/2025 93 74 - 100 mg/dL Final CALCIUM 06/15/2025 8.8 8.4 - 10.2 mg/dL Final AST (SGOT) 06/15/2025 31 <34 U/L Final ALT 06/15/2025 18 <40 U/L Final ALKALINE PHOSPHATASE 06/15/2025 48 40 - 150 U/L Final ALBUMIN 06/15/2025 4.2 3.5 - 5.0 g/dL Final BILIRUBIN, TOTAL 06/15/2025 0.6 <1.2 mg/dL Final TOTAL PROTEIN 06/15/2025 7.2 6.4 - 8.3 g/dL Final eGFR 06/15/2025 >90.0 >60.0 mL/min/1.73m*2 Final Auto WBC 06/15/2025 8.8 3.6 - 10.7 10*3/uL Final RBC 06/15/2025 5.31 4.40 - 5.90 10*6/uL Final Hemoglobin 06/15/2025 17.1 13.0 - 18.0 g/dL Final Hematocrit 06/15/2025 47.1 40.0 - 52.0 % Final MCV 06/15/2025 88.7 77.0 - 99.0 fL Final MCH 06/15/2025 32.2 26.0 - 34.0 pg Final MCHC 06/15/2025 36.3 (H) 30.5 - 36.0 % Final RDW 06/15/2025 12.6 11.5 - 15.0 % Final Platelets 06/15/2025 224 140 - 440 10*3/uL Final MPV 06/15/2025 10.2 9.0 - 12.7 fL Final nRBC 06/15/2025 0.0 0.0 - 2.0 /100 WBCs Final Neutrophils Relative 06/15/2025 67.7 38.0 - 82.0 % Final Lymphocytes Relative 06/15/2025 23.1 15.0 - 45.0 % Final Monocytes Relative 06/15/2025 7.6 5.0 - 13.0 % Final Eosinophils Relative 06/15/2025 0.9 0.0 - 6.0 % Final Basophils Relative 06/15/2025 0.5 0.0 - 2.0 % Final Immature Grans % 06/15/2025 0.2 0.0 - 2.0 % Final Neutrophils Absolute 06/15/2025 6.0 1.8 - 7.5 10*3/uL Final Lymphocytes Absolute 06/15/2025 2.0 1.0 - 4.3 10*3/uL Final Monocytes Absolute 06/15/2025 0.7 0.0 - 0.9 10*3/uL Final Eosinophils Absolute 06/15/2025 0.1 0.0 - 0.5 10*3/uL Final Basophils Absolute 06/15/2025 0.0 0.0 - 0.2 10*3/uL Final Immature Grans Absolute 06/15/2025 0.0 <0.1 10*3/uL Final Color, Urine 06/15/2025 Light Yellow Lt. Yellow Final Clarity, Urine 06/15/2025 Clear Clear Final pH, Urine 06/15/2025 5.5 5.0 - 8.0 pH Final Leukocytes, Urine 06/15/2025 Negative Negative Taurus/uL Final Nitrite, Urine 06/15/2025 Negative Negative Final Protein, Urine 06/15/2025 Negative Negative mg/dL Final Glucose, Urine 06/15/2025 Normal Normal (<70) mg/dL Final Bilirubin, Urine 06/15/2025 Negative Negative mg/dL Final Ketones, Urine 06/15/2025 Negative Negative mg/dL Final Urobilinogen, Urine 06/15/2025 Normal Normal (0-1) mg/dL Final Blood, Urine 06/15/2025 0.1 (A) Negative mg/dL Final Volume, Urine 06/15/2025 12 mL Final RBC, Urine 06/15/2025 3-5 (A) 0 - 2 /HPF Final WBC, Urine 06/15/2025 Negative 0 - 5 /HPF Final Squamous Epithelial, Urine 06/15/2025 Negative 3 - 5 /HPF Final Bacteria, Urine 06/15/2025 Negative Negative /HPF Final SPECIFIC GRAVITY OF URINE (NUMERIC) 06/15/2025 1.012 1.005 - 1.030 Final Antibiotics: off ASSESSMENT & Plan Diagnosis Plan 1. Cellulitis of all toes of left foot [facility] C-reactive protein Foot looks benign on this exam and patient was not at all focused on foot issues but more on toxin exposure from molds in an Aptmt he lived in for 2.5 yrs and was ill the last 6 ms. Foot xray is ordered to r/o osteo. States he felt well before this but old records document that he has c/o similar severe fatigue and myalgias/arthralgias in the past. Now c/o drenching night sweats, numb patches of L arm and diffuse sweating only in R axilla (which I can confirm) as well as testicular pain with noted thromboses and cysts on US and scant blood on UA, as well as MALIN, neck and low back pain with the severe fatigue/exhaustion, and muscle/joint pains w/ nl CRP, neg NAVEED, Rheum F, and nl liver/renal/WBC tests XR foot 3+ views left Hb is in high nl range of 17 but he is a smoker and ferritin is normal. He appears to have white coated tongue and thrush is being r/o by tongue culture, BC ordered to r/o Endocarditis (unlikely with nl CRP and Rheum F). No signs of deep space foot infection noted on exam Ferritin Hemochromatosis mutation LYME ANTIBODY SCREEN WITH REFLEX TO IMMUNOBLOT Blood culture Erythropoietin Blood culture Fungal Culture 2. Encounter for generalized patient complaints As above- r/o a syndrome to explain most if not all of symptoms and issues 3. Chronic night sweats Erythropoietin Concerning symptom for endocarditis, chronic fungal or TB disease and lymphoma but CRP is low . Eval as above Blood culture Fungal Culture 4. Environment contains mold - he does not appear to have allergic bronchoaspergillosis symptoms and I am not aware of mycotoxins in this setting but he has persistent symptoms though he moved out in 08/2024 , 10 mos ago Will have to look into this as I am not certain that this was blood testing was done at a FDA cleared lab 5. Arthralgia, unspecified joint C-reactive protein XR foot 3+ views left Ferritin Hemochromatosis mutation LYME ANTIBODY SCREEN WITH REFLEX TO IMMUNOBLOT Blood culture Erythropoietin Blood culture Fungal Culture 6. History of blood clots of epididymis Defer to Urology and PCP for significance but denies other history of clotting issues 7. Bipolar 1 disorder (HCC) now off all medication 8. Class 1 obesity due to excess calories without serious comorbidity with body mass index (BMI) of 32.0 to 32.9 in adult 9. Sweating in only one Axillary area (but not on entire R side of body as In [place] syndrome I spent total time 75 minutes caring for this patient today,including reviewing the medical record including history of other medical problems xxxxx Labs xx records from another facility xxxxxx has been to several hospitals interviewing and examining the patient and documenting - extensive discussion Education of treatment options, and potential drug side effects writing orders (prescriptions/meds) and instructing the patient on self care. Hardik Anan MD, MSc, FACP [1] Past Medical History: Diagnosis Date Class 1 obesity with body mass index (BMI) of 32.0 to 32.9 in adult 07/04/2025 Fungal infection Hx of epididymitis right Staphylococcosis [2] History reviewed. No pertinent surgical history. [3] Current Outpatient Medications Medication Sig Dispense Refill meloxicam (Mobic) 15 MG tablet Take 1 tablet (15 mg) by mouth daily. Take with food or milk. Do not take additional NSAIDs with this medication (Patient not taking: Reported on 07/04/2025) 30 tablet 0 pantoprazole (ProtoNix) 40 MG EC tablet Take 1 tablet (40 mg) by mouth 2 times daily. Do not crush, chew, or split. (Patient not taking: Reported on 07/04/2025) 60 tablet 1 No current facility-administered medications for this visit. [4] Allergies Allergen Reactions Iodinated Contrast Media Anaphylaxis Sulfa Antibiotics Anaphylaxis Rash and sob Iodine Rash [5] Family History Problem Relation Name Age of Onset Psoriasis Mother Hypertension Mother Arthritis Mother Parkinson's Disease Father Alzheimer's disease Father Epilepsy Father Diabetes type II Father documented in this encounter [facility] 06-28-2025 History of Present illness Narrative Patient still experiencing symptoms with oral intake. Will trial protonix while awaiting GI appointment. documented in this encounter [facility] 06-27-2025 History of Present illness Narrative Images from the original note were not included. Scott Santamaria MD 06/27/2025 at 11:56 AM UROLOGY INITIAL OFFICE VISIT PATIENT NAME: Ce Baer DATE OF : 1985 TODAY'S DATE: 06/27/2025 Chief Complaint: Chief Complaint Patient presents with New Patient Testicle Pain Unable to give a urine sample at this time HISTORY OF PRESENT ILLNESS: Mr. Baer is a 40 y.o. male who presents with right testicular pain He was seen previously by Dr. Wood for abdominal and groin pain, incomplete emptying, urinary frequency, sent bactrim CT 06/24/25 reviewed - no renal masses, no urolithiasis, bladder normal appearing decompressed Right testicular pain in December - epididymitis, given antibiotics Didn't think the swelling resolved 03/2025 - MERE at [place] showed cysts in testicles, not epididymitis Has radiating, shooting pains in the groin Throbbing pain in the testicle Pain radiating towards butt and then abdomen No left testicular pain Bowel movements - has serious constipation, bowel movements a few times per month Saw GI 5-6 years ago - colonoscopy and EGD, found polyps, didn't have follow up colonoscopy Colonoscopy scheduled in August ([facility] in [place]) with GI Abdomen will bloat Not sexually active, pain worse days after ejaculating with masturbation No hematuria, no dysuria Tip of the penis will have pain as well No occupation for the past few years Usually very active Tries natural stuff for constipation Tries not to take stool softeners REVIEW OF SYSTEMS: Review of Systems Gastrointestinal: Positive for constipation. Genitourinary: Positive for penile pain and testicular pain. Negative for difficulty urinating, dysuria, hematuria, penile swelling and scrotal swelling. Denies respiratory distress Past Medical History: Medical History[1] PastSurgical History: Surgical History[2] CurrentMedications: Current Medications[3] Allergies: Allergies[4] Social History: Social History[5] Family History: Family History[6] PHYSICAL EXAM: VITALS: BP 137/78 (BP Location: Left arm, Patient Position: Sitting, BP Cuff Size: Large adult) Pulse 92 Ht 5' 9" (1.753 m) Wt 219 lb (99.3 kg) BMI 32.34 kg/m Physical Exam Constitutional: General: He is not in acute distress. Appearance: He is not ill-appearing. HENT: Head: Normocephalic and atraumatic. Right Ear: External ear normal. Left Ear: External ear normal. Nose: Nose normal. Eyes: Extraocular Movements: Extraocular movements intact. Pulmonary: Effort: Pulmonary effort is normal. No respiratory distress. Genitourinary: Comments: Bilateral testicles descended without masses Right sided epididymal cyst, ttp to the right testicle, no ttp to the left testicle JAZIEL - very tense pelvic floor, tenderness to the right levator muscles, difficult to palpate prostate Neurological: Mental Status: He is alert. DATA: No results found for: "PSA" No results found for: TESTOSTERONE Lab Results Component Value Date WBC 8.8 06/15/2025 HGB 17.1 06/15/2025 HCT 47.1 06/15/2025 MCV 88.7 06/15/2025 PLT 224 06/15/2025 Lab Results Component Value Date GLUCOSE 93 06/15/2025 CALCIUM 8.8 06/15/2025 NA 138 06/15/2025 K 4.2 06/15/2025 CO2 21 (L) 06/15/2025 CL 106 06/15/2025 BUN 12 06/15/2025 CREATININE 0.80 06/15/2025 No components found for: "LABURIN" @LASTPROCPOC@ Radiology Review: Impression/Plan Ce was seen today for new patient and testicle pain. Diagnoses and all orders for this visit: Right testicular pain (Primary) Pelvic floor dysfunction - Ambulatory referral to Physical Therapy; Future Slow transit constipation Other orders - meloxicam (Mobic) 15 MG tablet; Take 1 tablet (15 mg) by mouth daily. Take with food or milk. Do not take additional NSAIDs with this medication Right testicular pain has been present for the past 6 months Didn't improve with antibiotic course previously Will trial mobic x1 month Schedule office right spermatic cord block Pain more localized to the right testicle and not right epididymis with the cyst, but would consider right epididymal cyst excision in the future if no improvement with cord block Pelvic floor dysfunction - has pain in perineum radiating to groins and abdomen, very tender on JAZIEL especially on the right side, pain in tip of penis at times Referral to PFPT placed Constipation - doesn't like to take stool softeners, prefers natural ways to prevent constipation Bowel movements a few times per month Constipation likely a big source of his abdominal pain Colonoscopy scheduled in August with GI Follow up in about 1 month (around 07/28/2025) for right testicular pain (cord block), pelvic floor dysfunction. Scott Santamaria MD 06/27/25 11:56 AM [1] Past Medical History: Diagnosis Date Fungal infection Hx of epididymitis right Staphylococcosis [2] History reviewed. No pertinent surgical history. [3] Current Outpatient Medications: doxycycline (Vibramycin) 100 MG capsule, Take 1 capsule (100 mg) by mouth 2 times daily for 7 days. Take with at least 8 ounces (large glass) of water, do not lie down for 30 minutes after, Disp: 14 capsule, Rfl: 0 meloxicam (Mobic) 15 MG tablet, Take 1 tablet (15 mg) by mouth daily. Take with food or milk. Do not take additional NSAIDs with this medication, Disp: 30 tablet, Rfl: 0 Vraylar 1.5 MG capsule, take 1 capsule BY MOUTH daily on Friday, Friday and Friday (Patient not taking: Reported on 06/27/2025), Disp: , Rfl: [4] Allergies Allergen Reactions Iodinated Contrast Media Anaphylaxis Iodine Rash [5] Social History Socioeconomic History Marital status: Single Tobacco Use Smoking status: Every Day Types: Cigarettes Passive exposure: Current Smokeless tobacco: Current Vaping Use Vaping status: Never Used Substance and Sexual Activity Alcohol use: Never Drug use: Not Currently Sexual activity: Not Currently Social Drivers of Health Financial Resource Strain: Medium Risk (06/14/2025) Overall Financial Resource Strain (CARDIA) Difficulty of Paying Living Expenses: Somewhat hard Food Insecurity: Food Insecurity Present (06/14/2025) Hunger Vital Sign Worried About Running Out of Food in the Last Year: Sometimes true Ran Out of Food in the Last Year: Sometimes true Transportation Needs: Unmet Transportation Needs (06/14/2025) PRAPARE - Transportation Lack of Transportation (Medical): Yes Lack of Transportation (Non-Medical): Yes Physical Activity: Sufficiently Active (06/14/2025) Exercise Vital Sign Days of Exercise per Week: 7 days Minutes of Exercise per Session: 80 min Stress: No Stress Concern Present (06/14/2025) [employer] - Occupational Stress Questionnaire Feeling of Stress : Not at all Social Connections: Moderately Integrated (06/14/2025) Social Connection and Isolation Panel [NHANES] Frequency of Communication with Friends and Family: Twice a week Frequency of Social Gatherings with Friends and Family: Once a week Attends [employer] Services: More than 4 times per year Active Member of Clubs or Organizations: Yes Attends Club or Organization Meetings: More than 4 times per year Marital Status: Never Intimate Partner Violence: Not At Risk (06/14/2025) Humiliation, Afraid, Rape, and Kick questionnaire Fear of Current or Ex-Partner: No Emotionally Abused: No Physically Abused: No Sexually Abused: No Housing Stability: High Risk (06/14/2025) Housing Stability Vital Sign Unable to Pay for Housing in the Last Year: No Number of Times Moved in the Last Year: 1 Homeless in the Last Year: Yes [6] Family History Problem Relation Name Age of Onset Psoriasis Mother Hypertension Mother Arthritis Mother Parkinson's Disease Father Alzheimer's disease Father Epilepsy Father Diabetes type II Father documented in this encounter [facility] 06-27-2025 History of Present illness Narrative Images from the original note were not included. Scott Santamaria MD 06/27/2025 at 11:56 AM UROLOGY INITIAL OFFICE VISIT PATIENT NAME: Ce Baer DATE OF : 1985 TODAY'S DATE: 06/27/2025 Chief Complaint: Chief Complaint Patient presents with New Patient Testicle Pain Unable to give a urine sample at this time HISTORY OF PRESENT ILLNESS: Mr. Baer is a 40 y.o. male who presents with right testicular pain He was seen previously by Dr. Wood for abdominal and groin pain, incomplete emptying, urinary frequency, sent bactrim CT 06/24/25 reviewed - no renal masses, no urolithiasis, bladder normal appearing decompressed Right testicular pain in December - epididymitis, given antibiotics Didn't think the swelling resolved 03/2025 - MERE at [place] showed cysts in testicles, not epididymitis Has radiating, shooting pains in the groin Throbbing pain in the testicle Pain radiating towards butt and then abdomen No left testicular pain Bowel movements - has serious constipation, bowel movements a few times per month Saw GI 5-6 years ago - colonoscopy and EGD, found polyps, didn't have follow up colonoscopy Colonoscopy scheduled in August ([facility] in [place]) with GI Abdomen will bloat Not sexually active, pain worse days after ejaculating with masturbation No hematuria, no dysuria Tip of the penis will have pain as well No occupation for the past few years Usually very active Tries natural stuff for constipation Tries not to take stool softeners REVIEW OF SYSTEMS: Review of Systems Gastrointestinal: Positive for constipation. Genitourinary: Positive for penile pain, scrotal swelling and testicular pain. Negative for difficulty urinating, dysuria, hematuria and penile swelling. Past Medical History: Medical History[1] PastSurgical History: Surgical History[2] CurrentMedications: Current Medications[3] Allergies: Allergies[4] Social History: Social History[5] Family History: Family History[6] PHYSICAL EXAM: VITALS: BP 137/78 (BP Location: Left arm, Patient Position: Sitting, BP Cuff Size: Large adult) Pulse 92 Ht 5' 9" (1.753 m) Wt 219 lb (99.3 kg) BMI 32.34 kg/m Physical Exam Constitutional: General: He is not in acute distress. Appearance: He is not ill-appearing. HENT: Head: Normocephalic and atraumatic. Right Ear: External ear normal. Left Ear: External ear normal. Nose: Nose normal. Eyes: Extraocular Movements: Extraocular movements intact. Pulmonary: Effort: Pulmonary effort is normal. No respiratory distress. Genitourinary: Comments: Bilateral testicles descended without masses Right sided epididymal cyst, ttp to the right testicle, no ttp to the left testicle JAZIEL - very tense pelvic floor, tenderness to the right levator muscles, difficult to palpate prostate Neurological: Mental Status: He is alert. DATA: No results found for: "PSA" No results found for: TESTOSTERONE Lab Results Component Value Date WBC 8.8 06/15/2025 HGB 17.1 06/15/2025 HCT 47.1 06/15/2025 MCV 88.7 06/15/2025 PLT 224 06/15/2025 Lab Results Component Value Date GLUCOSE 93 06/15/2025 CALCIUM 8.8 06/15/2025 NA 138 06/15/2025 K 4.2 06/15/2025 CO2 21 (L) 06/15/2025 CL 106 06/15/2025 BUN 12 06/15/2025 CREATININE 0.80 06/15/2025 No components found for: "LABURIN" @LASTPROCPOC@ Radiology Review: Impression/Plan Ce was seen today for new patient and testicle pain. Diagnoses and all orders for this visit: Right testicular pain (Primary) Pelvic floor dysfunction - Ambulatory referral to Physical Therapy; Future Slow transit constipation Other orders - meloxicam (Mobic) 15 MG tablet; Take 1 tablet (15 mg) by mouth daily. Take with food or milk. Do not take additional NSAIDs with this medication Right testicular pain has been present for the past 6 months Didn't improve with antibiotic course previously Will trial mobic x1 month Schedule office right spermatic cord block Pain more localized to the right testicle and not right epididymis with the cyst, but would consider right epididymal cyst excision in the future if no improvement with cord block Pelvic floor dysfunction - has pain in perineum radiating to groins and abdomen, very tender on JAZIEL especially on the right side, pain in tip of penis at times Referral to PFPT placed Constipation - doesn't like to take stool softeners, prefers natural ways to prevent constipation Bowel movements a few times per month Constipation likely a big source of his abdominal pain Colonoscopy scheduled in August with GI Follow up in about 1 month (around 07/28/2025) for right testicular pain (cord block), pelvic floor dysfunction. Scott Santamaria MD 06/27/25 11:56 AM [1] Past Medical History: Diagnosis Date Fungal infection Hx of epididymitis right Staphylococcosis [2] History reviewed. No pertinent surgical history. [3] Current Outpatient Medications: doxycycline (Vibramycin) 100 MG capsule, Take 1 capsule (100 mg) by mouth 2 times daily for 7 days. Take with at least 8 ounces (large glass) of water, do not lie down for 30 minutes after, Disp: 14 capsule, Rfl: 0 meloxicam (Mobic) 15 MG tablet, Take 1 tablet (15 mg) by mouth daily. Take with food or milk. Do not take additional NSAIDs with this medication, Disp: 30 tablet, Rfl: 0 Vraylar 1.5 MG capsule, take 1 capsule BY MOUTH daily on Friday, Friday and Friday (Patient not taking: Reported on 06/27/2025), Disp: , Rfl: [4] Allergies Allergen Reactions Iodinated Contrast Media Anaphylaxis Iodine Rash [5] Social History Socioeconomic History Marital status: Single Tobacco Use Smoking status: Every Day Types: Cigarettes Passive exposure: Current Smokeless tobacco: Current Vaping Use Vaping status: Never Used Substance and Sexual Activity Alcohol use: Never Drug use: Not Currently Sexual activity: Not Currently Social Drivers of Health Financial Resource Strain: Medium Risk (06/14/2025) Overall Financial Resource Strain (CARDIA) Difficulty of Paying Living Expenses: Somewhat hard Food Insecurity: Food Insecurity Present (06/14/2025) Hunger Vital Sign Worried About Running Out of Food in the Last Year: Sometimes true Ran Out of Food in the Last Year: Sometimes true Transportation Needs: Unmet Transportation Needs (06/14/2025) PRAPARE - Transportation Lack of Transportation (Medical): Yes Lack of Transportation (Non-Medical): Yes Physical Activity: Sufficiently Active (06/14/2025) Exercise Vital Sign Days of Exercise per Week: 7 days Minutes of Exercise per Session: 80 min Stress: No Stress Concern Present (06/14/2025) [employer] - Occupational Stress Questionnaire Feeling of Stress : Not at all Social Connections: Moderately Integrated (06/14/2025) Social Connection and Isolation Panel [NHANES] Frequency of Communication with Friends and Family: Twice a week Frequency of Social Gatherings with Friends and Family: Once a week Attends [employer] Services: More than 4 times per year Active Member of Clubs or Organizations: Yes Attends Club or Organization Meetings: More than 4 times per year Marital Status: Never Intimate Partner Violence: Not At Risk (06/14/2025) Humiliation, Afraid, Rape, and Kick questionnaire Fear of Current or Ex-Partner: No Emotionally Abused: No Physically Abused: No Sexually Abused: No Housing Stability: High Risk (06/14/2025) Housing Stability Vital Sign Unable to Pay for Housing in the Last Year: No Number of Times Moved in the Last Year: 1 Homeless in the Last Year: Yes [6] Family History Problem Relation Name Age of Onset Psoriasis Mother Hypertension Mother Arthritis Mother Parkinson's Disease Father Alzheimer's disease Father Epilepsy Father Diabetes type II Father documented in this encounter [facility] 06-27-2025 Instructions Scott Santamaria MD - 06/27/2025 11:00 AM EDT Headache in the pelvis (book) documented in this encounter [facility] 06-24-2025 Note Noted, see imaging r eferral and media for updates. [facility] 06-24-2025 Telephone encounter Note Noted, see imaging referral and media for updates. [facility] 06-24-2025 Miscellaneous Notes Noted, see imaging referral and media for updates. Your patient has been scheduled for their ct on 07/08/25 at [facility]. If testing requires an insurance authorization, the authorization must be in place 48 hours prior to the scheduled test or testing will be cancelled. Thank you, Central Scheduling documented in this encounter [facility] 06-24-2025 Telephone encounter Note Your patient has been scheduled for their ct on 07/08/25 at [facility]. If testing requires an insurance authorization, the authorization must be in place 48 hours prior to the scheduled test or testing will be cancelled. Thank you, Central Scheduling [facility] 06-22-2025 History of Present illness Narrative Images from the original note were not included. . Visit type: New Patient Reason for Visit: New Patient and Establish Care Assessment and Plan 1. Encounter for routine history and physical exam for male Comments: Labs ordered and pending 2. Bipolar 1 disorder (HCC) Comments: Refer to psych Patient states stable however unstable aspect see ER visit No HI or SI Orders: - [facility] [place] 3. Primary hypertension Comments: Labs ordered and pending Stable 4. 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 Arthralgia, unspecified joint Comments: Stable Continue OTC medication such as Advil Continue at home conservative therapies Orders: - Rheumatoid factor 6. Acute gastroenteritis Comments: Stable Intermittent in nature Labs ordered and pending Negative acute assessment Orders: - Lipase 7. Pain in both testicles Comments: Intermittent in nature History of kidney stones Ultrasound ordered Orders: - [facility] [place] Urology - US scrotum 8. Lipid screening Comments: Labs ordered and pending Orders: - Lipid panel 9. Other microscopic hematuria Comments: Found during UA in ED CT ordered Plan of care to be amended at that time of results Refer to GI Orders: - CT abdomen pelvis wo IV contrast Patient did not wish to address COVID MMR varicella hepatitis screenings and vaccinations. Will readdress after lab work returns. Follow-up with this provider 07/18/2025 Subjective Patient comes in to sign with internal medicine primary care with complaints of abdominal discomfort lower with what he describes as some testicular pain. Patient was seen multiple times in emergency medicine with no findings of acute concern. Patient signed out AMA previous visit prior to disposition. Patient currently denies any chest pain nausea vomiting diarrhea fever. Review of Systems Constitutional: Positive for fatigue. Gastrointestinal: Positive for abdominal pain. Genitourinary: Positive for flank pain and testicular pain. All other systems reviewed and are negative. Allergies[1] Current Medications[2] Medical History[3] Social History Tobacco Use Smoking status: Every Day Types: Cigarettes Smokeless tobacco: Current Substance Use Topics Alcohol use: Never Surgical History[4] Family History[5] Objective BP 130/71 Pulse 76 Temp 36.9 C (98.4 F) (Temporal) Ht 5' 9" (1.753 m) Wt 219 lb (99.3 kg) BMI 32.34 kg/m Physical Exam Vitals reviewed. Constitutional: Appearance: Normal appearance. HENT: Head: Normocephalic and atraumatic. Right Ear: Tympanic membrane, ear canal and external ear normal. Left Ear: Tympanic membrane, ear canal and external ear normal. Nose: Nose normal. Mouth/Throat: Mouth: Mucous membranes are moist. Pharynx: Oropharynx is clear. Eyes: Extraocular Movements: Extraocular movements intact. Conjunctiva/sclera: Conjunctivae normal. Pupils: Pupils are equal, round, and reactive to light. Cardiovascular: Rate and Rhythm: Normal rate and regular rhythm. Pulses: Normal pulses. Heart sounds: Normal heart sounds. Pulmonary: Breath sounds: Normal breath sounds. Abdominal: General: Abdomen is flat. Bowel sounds are normal. Palpations: Abdomen is soft. Musculoskeletal: General: Normal range of motion. Cervical back: Normal range of motion and neck supple. Skin: General: Skin is warm and dry. Capillary Refill: Capillary refill takes less than 2 seconds. Neurological: General: No focal deficit present. Mental Status: He is alert and oriented to person, place, and time. Psychiatric: Mood and Affect: Mood normal. Behavior: Behavior normal. Thought Content: Thought content normal. Judgment: Judgment normal. Data Reviewed and Summarized Labs: Labs ordered and pending Imaging/Testing: Ultrasound scrotum, CT abdomen [1] Allergies Allergen Reactions Iodinated Contrast Media Anaphylaxis Iodine Rash [2] Current Outpatient Medications Medication Sig Dispense Refill albuterol 108 (90 Base) MCG/ACT inhaler 2 puffs every 4 hours. ARIPiprazole (Abilify) 5 MG tablet Take 1 tablet by mouth daily. (Patient not taking: Reported on 06/15/2025) doxycycline (Vibramycin) 100 MG capsule Take 1 capsule (100 mg) by mouth 2 times daily for 7 days. Take with at least 8 ounces (large glass) of water, do not lie down for 30 minutes after 14 capsule 0 fexofenadine (Vivi) 180 MG tablet Take 180 mg by mouth daily. (Patient not taking: Reported on 06/15/2025) fluticasone (Flonase Allergy Relief) 50 MCG/ACT nasal spray Administer 1 spray into each nostril daily. (Patient not taking: Reported on 06/15/2025) Vraylar 1.5 MG capsule take 1 capsule BY MOUTH daily on Friday, Friday and Friday (Patient not taking: Reported on 06/15/2025) No current facility-administered medications for this visit. [3] Past Medical History: Diagnosis Date Fungal infection Hx of epididymitis right Staphylococcosis [4] History reviewed. No pertinent surgical history. [5] Family History Problem Relation Name Age of Onset Psoriasis Mother Hypertension Mother Arthritis Mother Parkinson's Disease Father Alzheimer's disease Father Epilepsy Father Diabetes type II Father documented in this encounter [facility] [employer] 06-22-2025 Miscellaneous Notes Addended by: SCOTT CUELLAR on: 06/28/2025 02:29 PM Modules accepted: Level of Service documented in this encounter [facility] 06-22-2025 Note Addended by: SCOTT CUELLAR on: 06/28/2025 02:29 PM Modules accepted: Level of Service [facility] 06-15-2025 Emergency department Note Pt. Outside of room and attempting to elope with IV still in place. This nurse asked patient to step back into the room so that I could remove the IV before they left. Pt. Complied but would not sit down. Pt. Was agitated and complaining about the provider and his experience of care since arrival to this ED. Pt. Reported that the nurse and "other lady" were nice but that the provider was rude and confrontational. Pt. Stated that he could hear the doctors demeanor with the patient in room 14 and said that it "was completely different" than how the doctor approached and spoke to him. Pt. Stated being angry that he "keeps going to emergency departments and I don't feel good and I know that I'm sick and no one helps me." Pt. Also reports "being told to come to the ER." By urgent cares and pt. Nurse lines. IV was removed. Pt. Was given the number for [facility] Customer Service and advised to call them the next day in order to process his complaint. The patient and his family member had deescalated by the time this nurse walked them out to the [facility]. Provider notified. [employer] notified. [facility] 06-15-2025 Emergency department Note Pt. Outside of room and attempting to elope with IV still in place. This nurse asked patient to step back into the room so that I could remove the IV before they left. Pt. Complied but would not sit down. Pt. Was agitated and complaining about the provider and his experience of care since arrival to this ED. Pt. Reported that the nurse and "other lady" were nice but that the provider was rude and confrontational. Pt. Stated that he could hear the doctors demeanor with the patient in room 14 and said that it "was completely different" than how the doctor approached and spoke to him. Pt. Stated being angry that he "keeps going to emergency departments and I don't feel good and I know that I'm sick and no one helps me." Pt. Also reports "being told to come to the ER." By urgent cares and pt. Nurse lines. IV was removed. Pt. Was given the number for [facility] Customer Service and advised to call them the next day in order to process his complaint. The patient and his family member had deescalated by the time this nurse walked them out to the [facility]. Provider notified. [employer] notified. EMERGENCY DEPARTMENT ENCOUNTER Pt Name: Ce Baer Birthdate 1985 Date of evaluation: 06/15/2025 ED Provider: Joycelyn Nelson DO CHIEF COMPLAINT Chief Complaint Patient presents with Rectal Bleeding Blood in Urine HISTORY OF PRESENT ILLNESS (Location/Symptom, Timing/Onset, Context/Setting, Quality, Duration, Modifying Factors, Severity) Note limiting factors. I wore appropriate PPE for the entirety of this encounter. HPI Patient has been checked into the emergency department prior to my shift start time. Patient was brought to my attention at 705PM PM on 06/16/25 Ce Baer is a 40 y.o. who presents to the emergency department with chief complaint of multiple complaints. 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 He reports his neck, back, abdominal, legs, joints hurt. He feels that he sleeps 20 hours a day every day and still feels tired. All of the symptoms have been occurring for many months. Patient will not quantify the specific amount of months. He reports that he was seen by a primary care doctor, urgent care, environmental doctor, and numerous doctors who keep telling him he needs to go to the ER. Thus he came to the ER today. Patient is very aggravated and agitated, see [facility] for more details. Nursing Notes were reviewed. REVIEW OF SYSTEMS Review of Systems Pertinent positives and negatives as per HPI. PAST MEDICAL HISTORY Medical History[1] SURGICAL HISTORY Surgical History[2] CURRENT MEDICATIONS Discharge Medication List as of 06/15/2025 11:17 PM CONTINUE these medications which have NOT CHANGED Details albuterol 108 (90 Base) MCG/ACT inhaler 2 puffs every 4 hours., Starting Fri03/15/2025, Historical Med ARIPiprazole (Abilify) 5 MG tablet Take 1 tablet by mouth daily., Historical Med fexofenadine (Vivi) 180 MG tablet Take 180 mg by mouth daily., Starting Fri07/29/2024, Historical Med fluticasone (Flonase Allergy Relief) 50 MCG/ACT nasal spray Administer 1 spray into each nostril daily., Historical Med Vraylar 1.5 MG capsule take 1 capsule BY MOUTH daily on Friday, Friday and Friday, Historical Med ALLERGIES Iodinated contrast media and Iodine FAMILY HISTORY Family History[3] SOCIAL HISTORY Social History[4] SCREENINGS PHYSICAL EXAM ED Triage Vitals [06/15/25 1847] Temp Heart Rate Resp BP 36.8 C (98.2 F) 96 16 (!) 143/88 SpO2 Temp Source Heart Rate Source Patient Position 96 % Tympanic -- -- BP Location FiO2 (%) -- -- General: A&O x 3, well appearing, agitated, aggravated Head: NC/AT Eyes: Atraumatic, EOMI, clear conjunctival, PERRLA Nose: Atraumatic, no skin changes Throat: Unable to perform, patient uncooperative Neck: Unable to perform, patient uncooperative Heart: Unable to perform, patient uncooperative Lungs: Unable to perform, patient uncooperative Abd: Unable to perform, patient uncooperative Back: Unable to perform, patient uncooperative Extremity:Unable to perform, patient uncooperative Neurologic: normal gait, Unable to perform full exam, patient uncooperative Skin: warm, dry, no obvious rashes DIAGNOSTIC RESULTS Procedures/EKG: EKG was reviewed by myself. Physician EKG interpretation can be found below in [facility] RADIOLOGY (Per Emergency Physician): As per below in [facility] section Interpretation per the Radiologist below, if available at the time of this note: No orders to display ED BEDSIDE ULTRASOUND: Performed by ED Physician - none LABS: Labs Reviewed COMPREHENSIVE METABOLIC PANEL - Abnormal Result Value SODIUM 138 POTASSIUM 4.2 CHLORIDE 106 CARBON DIOXIDE 21 (*) ANION GAP 11 UREA NITROGEN 12 CREATININE 0.80 GLUCOSE 93 CALCIUM 8.8 AST (SGOT) 31 ALT 18 ALKALINE PHOSPHATASE 48 ALBUMIN 4.2 BILIRUBIN, TOTAL 0.6 TOTAL PROTEIN 7.2 eGFR >90.0 CBC WITH AUTO DIFFERENTIAL - Abnormal Auto WBC 8.8 RBC 5.31 Hemoglobin 17.1 Hematocrit 47.1 MCV 88.7 MCH 32.2 MCHC 36.3 (*) RDW 12.6 Platelets 224 MPV 10.2 nRBC 0.0 Neutrophils Relative 67.7 Lymphocytes Relative 23.1 Monocytes Relative 7.6 Eosinophils Relative 0.9 Basophils Relative 0.5 Immature Grans % 0.2 Neutrophils Absolute 6.0 Lymphocytes Absolute 2.0 Monocytes Absolute 0.7 Eosinophils Absolute 0.1 Basophils Absolute 0.0 Immature Grans Absolute 0.0 COMPLETE URINALYSIS WITH REFLEX TO CULTURE - Abnormal Color, Urine Light Yellow Clarity, Urine Clear pH, Urine 5.5 Leukocytes, Urine Negative Nitrite, Urine Negative Protein, Urine Negative Glucose, Urine Normal Bilirubin, Urine Negative Ketones, Urine Negative Urobilinogen, Urine Normal Blood, Urine 0.1 (*) Volume, Urine 12 mL RBC, Urine 3-5 (*) WBC, Urine Negative Squamous Epithelial, Urine Negative Bacteria, Urine Negative SPECIFIC GRAVITY OF URINE (NUMERIC) 1.012 Narrative: A specimen with <=10 WBC is not consistent with inflammation. This specimen will not reflex to a urine culture. All other labs were within normal range or not returned as of this dictation. EMERGENCY DEPARTMENT COURSE and DIFFERENTIAL DIAGNOSIS/MDM: Vitals: Vitals: 06/15/25 1847 BP: (!) 143/88 Pulse: 96 Resp: 16 Temp: 36.8 C (98.2 F) TempSrc: Tympanic SpO2: 96% Weight: 95.3 kg (210 lb) Height: 1.753 m (5' 9") Diagnoses as of 06/16/25 0156 Eloped from emergency department Aggressive behavior Medications - No data to display Patient with hx of unknown presents to the ED with a chief complaint of multiple complaints. On exam, vitals stable. Limited physical exam. Otherwise per above Basic labs and UA were ordered by previous provider (Differential diagnosis) With consideration of age, sex/gender, risk factors, to evaluate patient for high risk causes of morbidity and mortality such as, but not limited to, unable to form differentials Today we will obtain unable to complete assessment We will also provide medical/symptomatic management with unable to complete assessment. REVAL: End of visit medical decision making Response to medical management provided in the ED: Patient very aggitated and irritated during history taking. He reports he was seen by environmental doctor, has multiple positive toxins tests. He did not specify whether this test was that his urine, sputum. When I asked for clarifications or more specific questions, patient becoming increasingly agitated. With each question patient presented more irrate. I did inform the patient that I am just getting more information on his medical history and symptomatology. I discussed at length that I am just trying to help in trying to understand how to help him out. Attempted multiple times to verbally de-escalate however patient continues to get aggravated and agitated. Ultimately at 1 point patient did mention that he wants some referrals, to which I responded that I am happy to provide him the referrals that he needs to continue his care. However patient got aggravated that he had told this to the nurse earlier, and the nurse told the doctor. He mentions "do you all not communicate to eachother here. What type of place is this". Before I could explain he came in prior to shift change patient continues to get agitated. I asked why the patient is getting angry. Ultimately patient says "I don't like your tone" and is now requesting the removal of his IV. Patient is eloping prior to results. The following resulted after patient eloped: Independently reviewed and interpreted the lab results which demonstrated the following: No significant leukocytosis, no significant anemia,, all other electrolytes within normal limits. Cr/Renal function wnl, UA with blood and RBCs CRITICAL CARE TIME None CONSULTS: None PROCEDURES: Unless otherwise noted below, none Procedures FINAL IMPRESSION 1. Eloped from emergency department 2. Aggressive behavior DISPOSITION Eloped 06/15/2025 08:06:46 PM PATIENT REFERRED TO: No follow-up provider specified. DISCHARGE MEDICATIONS: Discharge Medication List as of 06/15/2025 11:17 PM (Comment: Please note this report has been produced using speech recognition software and may contain errors related to that system including errors in grammar, punctuation, and spelling, as well as words and phrases that may be inappropriate. If there are any questions or concerns please feel free to contact the dictating provider for clarification.) Joycelyn Nelson DO (electronically signed) Emergency Medicine Provider [1] Past Medical History: Diagnosis Date Fungal infection Hx of epididymitis right Staphylococcosis [2] History reviewed. No pertinent surgical history. [3] No family history on file. [4] Social History Socioeconomic History Marital status: Single Tobacco Use Smoking status: Every Day Types: Cigarettes Smokeless tobacco: Current Substance and Sexual Activity Alcohol use: Never Drug use: Not Currently Social Drivers of Health Financial Resource Strain: Medium Risk (06/14/2025) Overall Financial Resource Strain (CARDIA) Difficulty of Paying Living Expenses: Somewhat hard Food Insecurity: Food Insecurity Present (06/14/2025) Hunger Vital Sign Worried About Running Out of Food in the Last Year: Sometimes true Ran Out of Food in the Last Year: Sometimes true Transportation Needs: Unmet Transportation Needs (06/14/2025) PRAPARE - Transportation Lack of Transportation (Medical): Yes Lack of Transportation (Non-Medical): Yes Physical Activity: Sufficiently Active (06/14/2025) Exercise Vital Sign Days of Exercise per Week: 7 days Minutes of Exercise per Session: 80 min Stress: No Stress Concern Present (06/14/2025) [employer] - Occupational Stress Questionnaire Feeling of Stress : Not at all Social Connections: Moderately Integrated (06/14/2025) Social Connection and Isolation Panel [NHANES] Frequency of Communication with Friends and Family: Twice a week Frequency of Social Gatherings with Friends and Family: Once a week Attends [employer] Services: More than 4 times per year Active Member of Clubs or Organizations: Yes Attends Club or Organization Meetings: More than 4 times per year Marital Status: Never Intimate Partner Violence: Not At Risk (06/14/2025) Humiliation, Afraid, Rape, and Kick questionnaire Fear of Current or Ex-Partner: No Emotionally Abused: No Physically Abused: No Sexually Abused: No Housing Stability: High Risk (06/14/2025) Housing Stability Vital Sign Unable to Pay for Housing in the Last Year: No Number of Times Moved in the Last Year: 1 Homeless in the Last Year: Yes Joycelyn Nelson DO 06/16/25 0156 Patient is here for possible blood in stool and urine and generalized pain including groin pain that has been going on since December. Blood in the stool has been going on for 1 year and blood in the urine started today. He had atb resistant infection and was on ATB and antifungals for staph, bacterial PNE, cellulitis & epididymitis & treatment ended in March. He complains of neck pain and lymph node pain and increased sweating under his armpits. He feels like food is getting stuck in his throat when he eats. He does not have a PCP at this time. He is not taking anything for his pain or symptoms. Call light within reach. documented in this encounter [facility] 06-15-2025 Emergency department Triage note Patient is here for possible blood in stool and urine and generalized pain including groin pain that has been going on since December. Blood in the stool has been going on for 1 year and blood in the urine started today. He had atb resistant infection and was on ATB and antifungals for staph, bacterial PNE, cellulitis & epididymitis & treatment ended in March. He complains of neck pain and lymph node pain and increased sweating under his armpits. He feels like food is getting stuck in his throat when he eats. He does not have a PCP at this time. He is not taking anything for his pain or symptoms. Call light within reach. [facility] 06-15-2025 Physician Emergency department Note EMERGENCY DEPARTMENT ENCOUNTER Pt Name: Ce Baer Birthdate 1985 Date of evaluation: 06/15/2025 ED Provider: Joycelyn Nelson DO CHIEF COMPLAINT Chief Complaint Patient presents with Rectal Bleeding Blood in Urine HISTORY OF PRESENT ILLNESS (Location/Symptom, Timing/Onset, Context/Setting, Quality, Duration, Modifying Factors, Severity) Note limiting factors. I wore appropriate PPE for the entirety of this encounter. HPI Patient has been checked into the emergency department prior to my shift start time. Patient was brought to my attention at 705PM PM on 06/16/25 Ce Baer is a 40 y.o. who presents to the emergency department with chief complaint of multiple complaints. 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 He reports his neck, back, abdominal, legs, joints hurt. He feels that he sleeps 20 hours a day every day and still feels tired. All of the symptoms have been occurring for many months. Patient will not quantify the specific amount of months. He reports that he was seen by a primary care doctor, urgent care, environmental doctor, and numerous doctors who keep telling him he needs to go to the ER. Thus he came to the ER today. Patient is very aggravated and agitated, see [facility] for more details. Nursing Notes were reviewed. REVIEW OF SYSTEMS Review of Systems Pertinent positives and negatives as per HPI. PAST MEDICAL HISTORY Medical History[1] SURGICAL HISTORY Surgical History[2] CURRENT MEDICATIONS Discharge Medication List as of 06/15/2025 11:17 PM CONTINUE these medications which have NOT CHANGED Details albuterol 108 (90 Base) MCG/ACT inhaler 2 puffs every 4 hours., Starting Fri03/15/2025, Historical Med ARIPiprazole (Abilify) 5 MG tablet Take 1 tablet by mouth daily., Historical Med fexofenadine (Vivi) 180 MG tablet Take 180 mg by mouth daily., Starting Fri07/29/2024, Historical Med fluticasone (Flonase Allergy Relief) 50 MCG/ACT nasal spray Administer 1 spray into each nostril daily., Historical Med Vraylar 1.5 MG capsule take 1 capsule BY MOUTH daily on Friday, Friday and Friday, Historical Med ALLERGIES Iodinated contrast media and Iodine FAMILY HISTORY Family History[3] SOCIAL HISTORY Social History[4] SCREENINGS PHYSICAL EXAM ED Triage Vitals [06/15/25 1547] Temp Heart Rate Resp BP 36.8 C (98.2 F) 96 16 (!) 143/88 SpO2 Temp Source Heart Rate Source Patient Position 96 % Tympanic -- -- BP Location FiO2 (%) -- -- General: A&O x 3, well appearing, agitated, aggravated Head: NC/AT Eyes: Atraumatic, EOMI, clear conjunctival, PERRLA Nose: Atraumatic, no skin changes Throat: Unable to perform, patient uncooperative Neck: Unable to perform, patient uncooperative Heart: Unable to perform, patient uncooperative Lungs: Unable to perform, patient uncooperative Abd: Unable to perform, patient uncooperative Back: Unable to perform, patient uncooperative Extremity:Unable to perform, patient uncooperative Neurologic: normal gait, Unable to perform full exam, patient uncooperative Skin: warm, dry, no obvious rashes DIAGNOSTIC RESULTS Procedures/EKG: EKG was reviewed by myself. Physician EKG interpretation can be found below in [facility] RADIOLOGY (Per Emergency Physician): As per below in [facility] section Interpretation per the Radiologist below, if available at the time of this note: No orders to display ED BEDSIDE ULTRASOUND: Performed by ED Physician - none LABS: Labs Reviewed COMPREHENSIVE METABOLIC PANEL - Abnormal Result Value SODIUM 138 POTASSIUM 4.2 CHLORIDE 106 CARBON DIOXIDE 21 (*) ANION GAP 11 UREA NITROGEN 12 CREATININE 0.80 GLUCOSE 93 CALCIUM 8.8 AST (SGOT) 31 ALT 18 ALKALINE PHOSPHATASE 48 ALBUMIN 4.2 BILIRUBIN, TOTAL 0.6 TOTAL PROTEIN 7.2 eGFR >90.0 CBC WITH AUTO DIFFERENTIAL - Abnormal Auto WBC 8.8 RBC 5.31 Hemoglobin 17.1 Hematocrit 47.1 MCV 88.7 MCH 32.2 MCHC 36.3 (*) RDW 12.6 Platelets 224 MPV 10.2 nRBC 0.0 Neutrophils Relative 67.7 Lymphocytes Relative 23.1 Monocytes Relative 7.6 Eosinophils Relative 0.9 Basophils Relative 0.5 Immature Grans % 0.2 Neutrophils Absolute 6.0 Lymphocytes Absolute 2.0 Monocytes Absolute 0.7 Eosinophils Absolute 0.1 Basophils Absolute 0.0 Immature Grans Absolute 0.0 COMPLETE URINALYSIS WITH REFLEX TO CULTURE - Abnormal Color, Urine Light Yellow Clarity, Urine Clear pH, Urine 5.5 Leukocytes, Urine Negative Nitrite, Urine Negative Protein, Urine Negative Glucose, Urine Normal Bilirubin, Urine Negative Ketones, Urine Negative Urobilinogen, Urine Normal Blood, Urine 0.1 (*) Volume, Urine 12 mL RBC, Urine 3-5 (*) WBC, Urine Negative Squamous Epithelial, Urine Negative Bacteria, Urine Negative SPECIFIC GRAVITY OF URINE (NUMERIC) 1.012 Narrative: A specimen with <=10 WBC is not consistent with inflammation. This specimen will not reflex to a urine culture. All other labs were within normal range or not returned as of this dictation. EMERGENCY DEPARTMENT COURSE and DIFFERENTIAL DIAGNOSIS/MDM: Vitals: Vitals: 06/15/25 1847 BP: (!) 143/88 Pulse: 96 Resp: 16 Temp: 36.8 C (98.2 F) TempSrc: Tympanic SpO2: 96% Weight: 95.3 kg (210 lb) Height: 1.753 m (5' 9") Diagnoses as of 06/16/25 0156 Eloped from emergency department Aggressive behavior Medications - No data to display Patient with hx of unknown presents to the ED with a chief complaint of multiple complaints. On exam, vitals stable. Limited physical exam. Otherwise per above Basic labs and UA were ordered by previous provider (Differential diagnosis) With consideration of age, sex/gender, risk factors, to evaluate patient for high risk causes of morbidity and mortality such as, but not limited to, unable to form differentials Today we will obtain unable to complete assessment We will also provide medical/symptomatic management with unable to complete assessment. REVAL: End of visit medical decision making Response to medical management provided in the ED: Patient very aggitated and irritated during history taking. He reports he was seen by environmental doctor, has multiple positive toxins tests. He did not specify whether this test was that his urine, sputum. When I asked for clarifications or more specific questions, patient becoming increasingly agitated. With each question patient presented more irrate. I did inform the patient that I am just getting more information on his medical history and symptomatology. I discussed at length that I am just trying to help in trying to understand how to help him out. Attempted multiple times to verbally de-escalate however patient continues to get aggravated and agitated. Ultimately at 1 point patient did mention that he wants some referrals, to which I responded that I am happy to provide him the referrals that he needs to continue his care. However patient got aggravated that he had told this to the nurse earlier, and the nurse told the doctor. He mentions "do you all not communicate to eachother here. What type of place is this". Before I could explain he came in prior to shift change patient continues to get agitated. I asked why the patient is getting angry. Ultimately patient says "I don't like your tone" and is now requesting the removal of his IV. Patient is eloping prior to results. The following resulted after patient eloped: Independently reviewed and interpreted the lab results which demonstrated the following: No significant leukocytosis, no significant anemia,, all other electrolytes within normal limits. Cr/Renal function wnl, UA with blood and RBCs CRITICAL CARE TIME None CONSULTS: None PROCEDURES: Unless otherwise noted below, none Procedures FINAL IMPRESSION 1. Eloped from emergency department 2. Aggressive behavior DISPOSITION Eloped 06/15/2025 08:06:46 PM PATIENT REFERRED TO: No follow-up provider specified. DISCHARGE MEDICATIONS: Discharge Medication List as of 06/15/2025 11:17 PM (Comment: Please note this report has been produced using speech recognition software and may contain errors related to that system including errors in grammar, punctuation, and spelling, as well as words and phrases that may be inappropriate. If there are any questions or concerns please feel free to contact the dictating provider for clarification.) Joycelyn Nelson DO (electronically signed) Emergency Medicine Provider [1] Past Medical History: Diagnosis Date Fungal infection Hx of epididymitis right Staphylococcosis [2] History reviewed. No pertinent surgical history. [3] No family history on file. [4] Social History Socioeconomic History Marital status: Single Tobacco Use Smoking status: Every Day Types: Cigarettes Smokeless tobacco: Current Substance and Sexual Activity Alcohol use: Never Drug use: Not Currently Social Drivers of Health Financial Resource Strain: Medium Risk (06/14/2025) Overall Financial Resource Strain (CARDIA) Difficulty of Paying Living Expenses: Somewhat hard Food Insecurity: Food Insecurity Present (06/14/2025) Hunger Vital Sign Worried About Running Out of Food in the Last Year: Sometimes true Ran Out of Food in the Last Year: Sometimes true Transportation Needs: Unmet Transportation Needs (06/14/2025) PRAPARE - Transportation Lack of Transportation (Medical): Yes Lack of Transportation (Non-Medical): Yes Physical Activity: Sufficiently Active (06/14/2025) Exercise Vital Sign Days of Exercise per Week: 7 days Minutes of Exercise per Session: 80 min Stress: No Stress Concern Present (06/14/2025) [employer] - Occupational Stress Questionnaire Feeling of Stress : Not at all Social Connections: Moderately Integrated (06/14/2025) Social Connection and Isolation Panel [NHANES] Frequency of Communication with Friends and Family: Twice a week Frequency of Social Gatherings with Friends and Family: Once a week Attends [employer] Services: More than 4 times per year Active Member of Clubs or Organizations: Yes Attends Club or Organization Meetings: More than 4 times per year Marital Status: Never Intimate Partner Violence: Not At Risk (06/14/2025) Humiliation, Afraid, Rape, and Kick questionnaire Fear of Current or Ex-Partner: No Emotionally Abused: No Physically Abused: No Sexually Abused: No Housing Stability: High Risk (06/14/2025) Housing Stability Vital Sign Unable to Pay for Housing in the Last Year: No Number of Times Moved in the Last Year: 1 Homeless in the Last Year: Yes Joycelyn Nelson DO 06/16/25 [id number] [employer] 06-13-2025 Telephone encounter Note S: Caller spoke with CAC nurse regarding multiple issues. B: Onset of symptoms/concern: Not an established patient A: Caller reports pain from groin to feet, lower back and stomach pain, states stomach pain is chronic and ongoing for several years now, went to a GI specialist and had an EGD and colonoscopy done and was found to have polyps but never followed up. Caller states he went to the [facility], hasn't seen a PCP in a couple years now, also reports pain in legs and lower back for the past couple months and fatigue for the past 1-1.5 months R: Caller advised to keep his appointment as scheduled to establish care on 07/20/25 as scheduled in order to best assess his concerns and make any recommendations for further testing, screenings or referral to a specialist. Caller placed on wait list in case of cancellation. Reason for Disposition Fatigue is a chronic symptom (recurrent or ongoing AND present > 4 weeks) Protocols used: Weakness (Generalized) and [id number] T [employer] 06-13-2025 Miscellaneous Notes S: Caller spoke with CAC nurse regarding multiple issues. B: Onset of symptoms/concern: Not an established patient A: Caller reports pain from groin to feet, lower back and stomach pain, states stomach pain is chronic and ongoing for several years now, went to a GI specialist and had an EGD and colonoscopy done and was found to have polyps but never followed up. Caller states he went to the [facility], hasn't seen a PCP in a couple years now, also reports pain in legs and lower back for the past couple months and fatigue for the past 1-1.5 months R: Caller advised to keep his appointment as scheduled to establish care on 07/20/25 as scheduled in order to best assess his concerns and make any recommendations for further testing, screenings or referral to a specialist. Caller placed on wait list in case of cancellation. Reason for Disposition Fatigue is a chronic symptom (recurrent or ongoing AND present > 4 weeks) Protocols used: Weakness (Generalized) and [id number] documented in this encounter [facility] 03-22-2025 Note Pt called me back, I informed him of my previous msg. Pt said he called the hospital in [place] and he will be working on getting the needed referral. [facility] 03-15-2025 Radiology Diagnostic study note [facility] Services [address] [place] [address] Foot min 3 Views MR#: [id number] Acct: [id number] Name: CE BAER MELANIE Rep #: [id number] : 1985 M 39 From: Roberto Carlos Reyna MD PCP: Dr. Elizabeth Argueta, DO Status: REG ER Study:Foot min 3 Views Date of Exam: Exam# [id number] Ordering Dr: David Cortes DO EXAM: Foot minimum three views x-ray CLINICAL HISTORY: Pain between 5th and 4th toes COMPARISON: None available TECHNIQUE: Three views right foot FINDINGS: Small calcific density along the lateral margin of the 5th metatarsophalangeal joint with considerations including possibility of fracture fragmentation or possible sesamoid formation, clinically correlate. Nodislocation. No radiopaque foreign body. No periosteal reaction. The joint spaces appear within limits. RAD/Foot min 3 Views IMPRESSION: Small calcific density along the lateral margin of the 5th metatarsophalangeal joint with considerations including possibility of fracture fragmentation or possible sesamoid formation, clinically correlate. Reading Location: [id number] CC: Dr. Elizabeth Argueta, DO; Dr. Claude Cortes, DO ~ Software Quality Test Engineer: Signed [facility] 01-13-2025 History of Present illness Narrative Radiology Service Progress Note PATIENT NAME: Ce Baer II DATE OF SERVICE: January 13, 2025 TIME: 6:55 PM PATIENT IDENTITY VERIFICATION COMPLETED USING TWO (2) IDENTIFIERS: Name and Date of confirmed by patient verbally. FALL SCREENING: Has the patient had 2 falls in the last year or 1 fall with injury or currently using an Ambulatory Assistive Device (Walker, Cane, Wheelchair, Crutches, etc.)? No PATIENT GENDER DATA: Assigned male at PATIENT RELEVANT IMPLANT DATA REVIEWED: Not Applicable PATIENT PRESENTS WITH AN IMPLANTABLE OR ATTACHED AUTOMOTIVE SERVICE ASSISTANT: No RADIOLOGY DEPARTMENT: General X-ray: Exam(s) Completed: Chest X-Ray PERIPHERAL IV DATA: Not applicable SIGNED BY: Krissy Hadley January 13, 2025 6:55 PM documented in this encounter [facility] 01-13-2025 Note HNO ID: [id number] Author: VICTORIA ALVES Tech Service: ? Author Type: Technologist Type: Progress Notes Filed: 01/13/2025 19:01 Note Text: Radiology Service Progress Note PATIENT NAME: Ce Baer II DATE OF SERVICE: January 13, 2025 TIME: 6:55 PM PATIENT IDENTITY VERIFICATION COMPLETED USING TWO (2) IDENTIFIERS: Name and Date of confirmed by patient verbally. FALL SCREENING: Has the patient had 2 falls in the last year or 1 fall with injury or currently using an Ambulatory Assistive Device (Walker, Cane, Wheelchair, Crutches, etc.)? No PATIENT GENDER DATA: Assigned male at PATIENT RELEVANT IMPLANT DATA REVIEWED: Not Applicable PATIENT PRESENTS WITH AN IMPLANTABLE OR ATTACHED AUTOMOTIVE SERVICE ASSISTANT: No RADIOLOGY DEPARTMENT: General X-ray: Exam(s) Completed: Chest X-Ray PERIPHERAL IV DATA: Not applicable SIGNED BY: Krissy Hadley January 13, 2025 6:55 PM [facility] 01-12-2025 Note HNO ID: [id number] Author: CE WOOD MD Service: ? Author Type: Physician Type: Progress Notes Filed: 01/12/2025 16:25 Note Text: [facility] NEW PATIENT ENCOUNTER Consultation requested by Dr. coughlin for an opinion regarding freq/R test pain. My final recommendations will be communicated back to the requesting physician by way of shared Medical record or letter to requesting physician via US mail. HISTORY OF PRESENT ILLNESS: Patient presents with: Consult: Here for abdominal pain,groin pain, feels like he is unable to empty at times. He helped a friend move in October he felt like he had an umbilical hernia. He is having frequency little amounts. Blood in stools. Ce Baer II is a 39 year old male no hematuria/fever But new in last 3 weeks noct was 0x, now 5x, urge and day q 2-3hr, small voids, No prior stones, but all this started after helping friend move, plan ct a/p , bactrim 7d, ibuprofen 7d, See pcp for hematochezia Pvr 51cc UA(-) Exam--R tender enlarged epidid, B test normal and no hernia B Review of Systems LAB No results found for: "PSA", PSASC Creatinine Date Value Ref Range Status 03/28/2022 0.87 0.73 - 1.22 mg/dL Final No results found for: "UGLUCPOC", "UBILIPOC", "UKETONPOC", "USGPOC", "UHBPOC", "UPHPOC", "UPROPOC", "UUROPOC", "UNITPOC", "UWBCPOC", "UCOLPOC", "UCLARPOC"] MEDICATIONS fexofenadine (VIVI ALLERGY) 180 mg tablet Take 1 tablet by mouth once daily. triamcinolone acetonide (NASACORT) 55 mcg nasal inhaler Use 2 Sprays in the nose once daily. HISTORIES PAST MEDICAL HISTORY Diagnosis Date Adenomatous colon polyp Bipolar 1 disorder (HCC) 07/21/2019 Depression Headache History of alcohol use disorder 2018 History of substance abuse (HCC) 2005 Hypertension 07/20/2019 PAST SURGICAL HISTORY Procedure Laterality Date COLONOSCOPY 04/02/2022 EGD 04/02/2022 FAMILY HISTORY Problem Relation Age of Onset Psoriasis Mother Systemic Lupus Erythematosus Mother Diabetes Father Hypertension Father Parkinsonism Father post head injury Seizures Father post head injury Systemic Lupus Erythematosus Sister Hypertension Sister No Known Problems Brother Diabetes Maternal Grandmother Liver Disease Maternal Grandmother Diabetes Maternal Grandfather Diabetes Paternal Grandmother Liver Disease Paternal Grandmother Diabetes Paternal Grandfather Liver Disease Paternal Grandfather Colon Cancer No Family History SOCIAL HISTORY Social History Tobacco Use Smoking status: Every Day Current packs/day: 1.00 Average packs/day: 1 pack/day for 12.0 years (12.0 ttl pk-yrs) Types: Cigarettes Smokeless tobacco: Never Vaping Use Vaping status: Never Used Substance Use Topics Alcohol use: Not Currently Alcohol/week: 42.0 standard drinks of alcohol Types: 42 Cans of Beer (12oz) per week Comment: in recovery since 2018 Drug use: Not Currently Types: Marijuana, Narcotics Comment: quit age 20. Ht 175.3 cm (5' 9") Wt 95.3 kg (210 lb) BMI 31.01 kg/m? Physical Exam ASSESSMENT AND PLAN ASSESSMENT/PLAN: 1. Frequent urination - ICD9: 788.41, ICD10: R35.0 (primary diagnosis) ? Uti vs stone, plan ct and bactrim ds - BLADDER SCAN 2. Epididymo-orchitis - ICD9: 604.90, ICD10: N45.3 Reactive post lifting moving, typical, bactrim also 3. Renal stones - ICD9: 592.0, ICD10: N20.0 - CT FLANK WO IVCON 4. Hypertrophy of prostate with urinary obstruction - ICD9: 600.01, 599.69, ICD10: N40.1, N13.8 monitor 5. Incomplete bladder emptying - ICD9: 788.21, ICD10: R33.9 6. Recurrent UTI - ICD9: 599.0, ICD10: N39.0 Send c+s. Bactrim 7d Ce Wood MD This note was partially created using voice recognition software and is inherently subject to errors including those of syntax and sound-alike substitutions which may escape proofreading. In such instances, original meaning may be extrapolated by contextual derivation. [facility] 01-12-2025 History of Present illness Narrative Images from the original note were not included. [facility] NEW PATIENT ENCOUNTER Consultation requested by Dr. coughlin for an opinion regarding freq/R test pain. My final recommendations will be communicated back to the requesting physician by way of shared Medical record or letter to requesting physician via US mail. HISTORY OF PRESENT ILLNESS: Patient presents with: Consult: Here for abdominal pain,groin pain, feels like he is unable to empty at times. He helped a friend move in October he felt like he had an umbilical hernia. He is having frequency little amounts. Blood in stools. Ce Baer II is a 39 year old male no hematuria/fever But new in last 3 weeks noct was 0x, now 5x, urge and day q 2-3hr, small voids, No prior stones, but all this started after helping friend move, plan ct a/p , bactrim 7d, ibuprofen 7d, See pcp for hematochezia Pvr 51cc UA(-) Exam--R tender enlarged epidid, B test normal and no hernia B Review of Systems LAB No results found for: "PSA", PSASC Creatinine Date Value Ref Range Status 03/28/2022 0.87 0.73 - 1.22 mg/dL Final No results found for: "UGLUCPOC", "UBILIPOC", "UKETONPOC", "USGPOC", "UHBPOC", "UPHPOC", "UPROPOC", "UUROPOC", "UNITPOC", "UWBCPOC", "UCOLPOC", "UCLARPOC"] MEDICATIONS fexofenadine (VIVI ALLERGY) 180 mg tablet Take 1 tablet by mouth once daily. triamcinolone acetonide (NASACORT) 55 mcg nasal inhaler Use 2 Sprays in the nose once daily. HISTORIES PAST MEDICAL HISTORY Diagnosis Date Adenomatous colon polyp Bipolar 1 disorder (HCC) 07/21/2019 Depression Headache History of alcohol use disorder 2018 History of substance abuse (HCC) 2005 Hypertension 07/20/2019 PAST SURGICAL HISTORY Procedure Laterality Date COLONOSCOPY 04/02/2022 EGD 04/02/2022 FAMILY HISTORY Problem Relation Age of Onset Psoriasis Mother Systemic Lupus Erythematosus Mother Diabetes Father Hypertension Father Parkinsonism Father post head injury Seizures Father post head injury Systemic Lupus Erythematosus Sister Hypertension Sister No Known Problems Brother Diabetes Maternal Grandmother Liver Disease Maternal Grandmother Diabetes Maternal Grandfather Diabetes Paternal Grandmother Liver Disease Paternal Grandmother Diabetes Paternal Grandfather Liver Disease Paternal Grandfather Colon Cancer No Family History SOCIAL HISTORY Social History Tobacco Use Smoking status: Every Day Current packs/day: 1.00 Average packs/day: 1 pack/day for 12.0 years (12.0 ttl pk-yrs) Types: Cigarettes Smokeless tobacco: Never Vaping Use Vaping status: Never Used Substance Use Topics Alcohol use: Not Currently Alcohol/week: 42.0 standard drinks of alcohol Types: 42 Cans of Beer (12oz) per week Comment: in recovery since 2018 Drug use: Not Currently Types: Marijuana, Narcotics Comment: quit age 20. Ht 175.3 cm (5' 9") Wt 95.3 kg (210 lb) BMI 31.01 kg/m Physical Exam ASSESSMENT & PLAN ASSESSMENT/PLAN: 1. Frequent urination - ICD9: 788.41, ICD10: R35.0 (primary diagnosis) ? Uti vs stone, plan ct and bactrim ds - BLADDER SCAN 2. Epididymo-orchitis - ICD9: 604.90, ICD10: N45.3 Reactive post lifting moving, typical, bactrim also 3. Renal stones - ICD9: 592.0, ICD10: N20.0 - CT FLANK WO IVCON 4. Hypertrophy of prostate with urinary obstruction - ICD9: 600.01, 599.69, ICD10: N40.1, N13.8 monitor 5. Incomplete bladder emptying - ICD9: 788.21, ICD10: R33.9 6. Recurrent UTI - ICD9: 599.0, ICD10: N39.0 Send c+s. Bactrim 7d Ce Wood MD This note was partially created using voice recognition software and is inherently subject to errors including those of syntax and "sound-alike" substitutions which may escape proofreading. In such instances, original meaning may be extrapolated by contextual derivation. documented in this encounter [facility] 07-29-2024 History of Present illness Narrative This note was created using [employer]. Subjective Ce Baer II is a 39 year old male. Patient here for concerns over mold exposure, no PCP. Patient reports that he's been sick for 3-4 months and so is his dog. Has had people visit who come over and have symptoms as well. He has been looking in his apartment and re-painting, found source of mold as the air conditioning unit. Patient took the unit out, landlord giving him a lease violation for taking it out and refusing to clean up the mold. Patient states he is having migraines, insomnia, lethargic, burning eyes, cough, voice change, rashes. States his dog is having seizures and runny eyes. Using nasal saline spray, has only taken Vivi a couple times. Sent away for a test that confirmed the presence of mold. Patient wants tested for "mold poisoning". Went to ER in [place] last Friday, was told they don't do testing for mold, recommended to see PCP for testing. Used to smoke 1 PPD, trying to quit and now down to 2-3/day. Started around age [age]. The history is provided by the patient. Review of Systems Constitutional: Positive for fatigue. Negative for fever. HENT: Positive for congestion, rhinorrhea and sinus pressure. Respiratory: Positive for cough, chest tightness, shortness of breath and wheezing. Cardiovascular: Negative for chest pain. PAST MEDICAL HISTORY No date: Adenomatous colon polyp 07/21/2019: Bipolar 1 disorder (HCC) No date: Depression No date: Headache 2018: History of alcohol use disorder 2005: History of substance abuse (HCC) 07/20/2019: Hypertension PAST SURGICAL HISTORY 04/02/2022: COLONOSCOPY 04/02/2022: EGD ALLERGIES Iodine and Shellfish Derived MEDICATIONS fexofenadine (VIVI ALLERGY) 180 mg tablet Take 1 tablet by mouth once daily. triamcinolone acetonide (NASACORT) 55 mcg nasal inhaler Use 2 Sprays in the nose once daily. omeprazole (PRILOSEC) 20 mg capsule Take 1 capsule by mouth once daily. (Patient not taking: Reported on 11/13/2022) peg 3350-Electrolytes (GOLYTELY) 236-22.74-6.74 -5.86 gram suspension Refer to printed prep instructions from your provider. (Patient not taking: Reported on 11/13/2022) multivit with iron,minerals (MULTIVITAMIN AND MINERALS ORAL) Take by mouth once daily. FAMILY HISTORY Problem Relation Age of Onset Psoriasis Mother Systemic Lupus Erythematosus Mother Diabetes Father Hypertension Father Parkinsonism Father post head injury Seizures Father post head injury Systemic Lupus Erythematosus Sister Hypertension Sister No Known Problems Brother Diabetes Maternal Grandmother Liver Disease Maternal Grandmother Diabetes Maternal Grandfather Diabetes Paternal Grandmother Liver Disease Paternal Grandmother Diabetes Paternal Grandfather Liver Disease Paternal Grandfather Colon Cancer No Family History Social History Tobacco Use Smoking status: Every Day Current packs/day: 1.00 Average packs/day: 1 pack/day for 12.0 years (12.0 ttl pk-yrs) Types: Cigarettes Smokeless tobacco: Never Vaping Use Vaping status: Never Used Substance Use Topics Alcohol use: Not Currently Alcohol/week: 42.0 standard drinks of alcohol Types: 42 Cans of Beer (12oz) per week Comment: in recovery since 2018 Drug use: Not Currently Types: Marijuana, Narcotics Comment: quit age 20. Objective BP 126/81 Pulse 65 Ht 174 cm (5' 8.5") Wt 98 kg (216 lb 0.8 oz) BMI 32.37 kg/m Physical Exam Vitals and nursing note reviewed. Constitutional: Appearance: He is well-developed. He is not ill-appearing. HENT: Right Ear: Tympanic membrane and ear canal normal. Left Ear: Tympanic membrane and ear canal normal. Nose: Nose normal. Mouth/Throat: Mouth: Mucous membranes are moist. Eyes: Conjunctiva/sclera: Conjunctivae normal. Cardiovascular: Rate and Rhythm: Normal rate and regular rhythm. Pulses: Normal pulses. Heart sounds: Normal heart sounds. Pulmonary: Effort: Pulmonary effort is normal. Breath sounds: Normal breath sounds. Skin: General: Skin is warm and dry. Neurological: Mental Status: He is alert and oriented to person, place, and time. Gait: Gait normal. Psychiatric: Mood and Affect: Affect is flat. Assessment and Plan 1. Chronic cough 2. Contact with or exposure to mold 3. Environmental allergies Recommend chest x-ray, consult with pulmonology, and start allergy medications daily. Encouraged to continue working with landlord for complete remediation of mold. - CONSULT TO PULMONARY MEDICINE - XR CHEST 2V FRONTAL/LAT - fexofenadine (VIIV ALLERGY) 180 mg tablet; Take 1 tablet by mouth once daily. Dispense: 30 tablet; Refill: 2 - triamcinolone acetonide (NASACORT) 55 mcg nasal inhaler; Use 2 Sprays in the nose once daily. Dispense: 16.9 mL; Refill: 0 4. Cigarette nicotine dependence without complication Trying to quit, down to 2-3x/day from 1 PPD Marcos Bee APRN.LOKI documented in this encounter [facility] 07-29-2024 Telephone encounter Note S: Patient spoke with [facility] nurse regarding breathing issues due to black mold exposure. B: Onset of symptoms/concern began a while ago. A: Patient lives in a building with black mold. Both patient and his dog are having symptoms. SOB, wheezing, thrush, migraines, bowel issues. Breathing has gotten worse. Landlord not taking care of the mold issue. [employer] is involved. Needs to be tested for mold poisoning. Patient breaking out in rashes on his face and body. Speaking in full sentences, not coughing, no obvious wheeze. R: Moved new patient appt up from 09/01 to 08/23 with Geovanna Heath CNP. Insurance verified with patient as [facility]. Advised patient to bring photo ID, insurance card, medication list, and arrive 10 minutes early to appointment. Advised that until he is established, will need to go to [facility] for his issues. Patient understands care advice. No further needs at this time. Patient instructed to call back with new or worsening symptoms. Reason for Disposition MILD longstanding difficulty breathing (e.g., speaks in phrases, SOB even at rest, pulse 100-120) and SAME as normal Protocols used: Breathing [id number] [facility] 07-29-2024 Miscellaneous Notes S: Patient spoke with [facility] nurse regarding breathing issues due to black mold exposure. B: Onset of symptoms/concern began a while ago. A: Patient lives in a building with black mold. Both patient and his dog are having symptoms. SOB, wheezing, thrush, migraines, bowel issues. Breathing has gotten worse. Landlord not taking care of the mold issue. [employer] is involved. Needs to be tested for mold poisoning. Patient breaking out in rashes on his face and body. Speaking in full sentences, not coughing, no obvious wheeze. R: Moved new patient appt up from 09/01 to 08/23 with Geovanna Heath CNP. Insurance verified with patient as [facility]. Advised patient to bring photo ID, insurance card, medication list, and arrive 10 minutes early to appointment. Advised that until he is established, will need to go to [facility]/ED for his issues. Patient understands care advice. No further needs at this time. Patient instructed to call back with new or worsening symptoms. Reason for Disposition MILD longstanding difficulty breathing (e.g., speaks in phrases, SOB even at rest, pulse 100-120) and SAME as normal Protocols used: Breathing [id number] documented in this encounter [facility] 07-28-2024 Telephone encounter Note Spoke with patient. He wants to establish care to have mold testing done. Was advised by PSS that first available new patient appointment in [place] is in August. Advised patient we can check for sooner appointment with provider anywhere within [facility]. He is agreeable. Transferred to materials scheduler. Brittani Dyer, RN [facility] 07-28-2024 Miscellaneous Notes Spoke with patient. He wants to establish care to have mold testing done. Was advised by PSS that first available new patient appointment in [place] is in August. Advised patient we can check for sooner appointment with provider anywhere within [facility]. He is agreeable. Transferred to materials scheduler. Brittani Dyer, RN patient called in this morning and started going off on me and thought that his ER follow up was scheduled for tomorrow and not today. He insisted on getting management on the line and would not let me look for another available time. Patient stated he is dealthy ill and needs to be seen JULIANO. Again would not let me look and demanded someone in management so I offered ombudsman. documented in this encounter [facility] 07-28-2024 Telephone encounter Note patient called in this morning and started going off on me and thought that his ER follow up was scheduled for tomorrow and not today. He insisted on getting management on the line and would not let me look for another available time. Patient stated he is dealthy ill and needs to be seen JULIANO. Again would not let me look and demanded someone in management so I offered ombudsman. [facility] 11-13-2022 History of Present illness Narrative This note was created using FLIP4NEWter. Subjective Ce Baer II is a 37 year old male. HPI Patient presents with cough, congestion, sore throat for 8 days. He has lost smell and taste for 3-4 days. No shortness of breath. He wasn't feeling better so he came in for evaluation. No home covid test done. He has not had a fever. No nvd. Review of Systems Constitutional: Positive for fatigue. HENT: Positive for congestion, rhinorrhea and sore throat. Respiratory: Positive for cough. Negative for shortness of breath. Cardiovascular: Negative. Gastrointestinal: Negative. Genitourinary: Negative. Musculoskeletal: Negative. Neurological: Positive for headaches. All other systems reviewed and are negative. PAST MEDICAL HISTORY Diagnosis Date Adenomatous colon polyp Bipolar 1 disorder (HCC) 07/21/2019 Depression Headache History of alcohol use disorder 2018 History of substance abuse ([facility]) 2005 Hypertension 07/20/2019 Current Outpatient Medications Medication Sig Dispense Refill multivit with iron,minerals (MULTIVITAMIN AND MINERALS ORAL) Take by mouth once daily. Twgzudmdjhqkbpb-Yttcynkeb-VP (BROMFED DM) 2-30-10 mg/5 mL syrup Take 10 mL by mouth four times daily as needed. 200 mL 0 omeprazole (PRILOSEC) 20 mg capsule Take 1 capsule by mouth once daily. (Patient not taking: Reported on 11/13/2022) 30 capsule 1 peg 3350-Electrolytes (GOLYTELY) 236-22.74-6.74 -5.86 gram suspension Refer to printed prep instructions from your provider. (Patient not taking: Reported on 11/13/2022) 4000 mL 0 No current facility-administered medications for this visit. PAST SURGICAL HISTORY Procedure Laterality Date COLONOSCOPY 04/02/2022 EGD 04/02/2022 FAMILY HISTORY Problem Relation Age of Onset Psoriasis Mother Systemic Lupus Erythematosus Mother Diabetes Father Hypertension Father Parkinsonism Father post head injury Seizures Father post head injury Systemic Lupus Erythematosus Sister Hypertension Sister No Known Problems Brother Diabetes Maternal Grandmother Liver Disease Maternal Grandmother Diabetes Maternal Grandfather Diabetes Paternal Grandmother Liver Disease Paternal Grandmother Diabetes Paternal Grandfather Liver Disease Paternal Grandfather Colon Cancer No Family History Social History Tobacco Use Smoking status: Every Day Packs/day: 1.00 Years: 12.00 Pack years: 12.00 Types: Cigarettes Smokeless tobacco: Never Vaping Use Vaping Use: Never used Substance Use Topics Alcohol use: Not Currently Alcohol/week: 42.0 standard drinks Types: 42 Cans of Beer (12oz) per week Comment: in recovery since 2018 Drug use: Not Currently Types: Marijuana, Narcotics Comment: quit age 20. Objective BP 128/80 Pulse 98 Temp 37.2 C (99 F) Resp 16 Wt 94.8 kg (209 lb) SpO2 97% BMI 31.78 kg/m Physical Exam Vitals reviewed. Constitutional: Appearance: Normal appearance. HENT: Head: Normocephalic and atraumatic. Right Ear: Tympanic membrane, ear canal and external ear normal. Left Ear: Tympanic membrane, ear canal and external ear normal. Nose: Congestion present. Mouth/Throat: Mouth: Mucous membranes are moist. Pharynx: Oropharynx is clear. Cardiovascular: Rate and Rhythm: Normal rate and regular rhythm. Heart sounds: Normal heart sounds. Pulmonary: Effort: Pulmonary effort is normal. Breath sounds: Normal breath sounds. Musculoskeletal: Cervical back: Neck supple. Skin: General: Skin is warm and dry. Findings: No rash. Neurological: Mental Status: He is alert. Assessment and Plan ASSESSMENT/PLAN: 1. Suspected COVID-19 virus infection - ICD9: V01.79, ICD10: Z20.822 Cxr clear. Bromfed for symptoms. Discussed quarantine and red flags. - XR CHEST 2V FRONTAL/LAT - COVID WITH FLUA+B, ROUTINE Lesli Cano PA-C documented in this encounter [facility] 11-13-2022 History of Present illness Narrative Radiology Service Progress Note PATIENT NAME: Ce Baer II DATE OF SERVICE: November 13, 2022 TIME: 10:55 AM PATIENT IDENTITY VERIFICATION COMPLETED USING TWO (2) IDENTIFIERS: Name and Date of confirmed by patient verbally. FALL SCREENING: Has the patient had 2 falls in the last year or 1 fall with injury or currently using an Ambulatory Assistive Device (Walker, Cane, Wheelchair, Crutches, etc.)? No PATIENT GENDER DATA: Male PATIENT RELEVANT IMPLANT DATA REVIEWED: Not Applicable RADIOLOGY DEPARTMENT: General X-ray: Exam(s) Completed: Chest X-Ray PERIPHERAL IV DATA: Not applicable SIGNED BY: RT Duane(R) November 13, 2022 10:55 AM documented in this encounter [facility] 06-24-2022 Miscellaneous Notes Noted, he is not a patient of Dr. Smith any longer per his previous request. Rosa Bronson APRN.CNP Patient calling he said he is still having abdominal pain for past 3 and one half years. He had gone for colonoscopy in [facility]. He is still losing weight and down 168 pounds now. Patient thinks it is a gall bladder issue, he has several family members that have had to have their gall bladders removed. He plans to establish care out of network in [facility], not with [facility] facility. He will ask to have ultrasound of gall bladder done. Patient said he is not sure why he has never had ultrasound done with with Gastro or SOCIAL SCIENCE RESEARCH ASSISTANT appts. documented in this encounter [facility] 04-02-[address] Moraes at bedside to speak to patient. Verbalizes understanding. documented in this encounter [facility] 04-02-2022 History and physical note HISTORY AND PHYSICAL Ce Baer II, 36 year old male Current history and physical on file: Yes Is a new History and Physical required for today's visit? No Indication for procedure: Abdominal pain and Weight Loss PROCEDURE(S) SCHEDULED FOR: Colonoscopy with or without biopsies and with or without removal of polyps or lesions, dilation (any means), treatment of bleeding (any means), based on clinical findings. and EGD (Esophagogastroduodenoscopy) with or without biopsies, removal of polyps or lesions, dilation ( any means), treatment of bleeding ( any means), Barrx treatment of Juan Jose's Esophagus, image tube placement or cryo therapy treatment based on clinical findings. BASELINE BEHAVIOR: Calm BASELINE ORIENTATION: A & O x3 All medications and allergies reviewed: Yes Skin Assessment: Warm dry mucus membranes pink Airway/Respiratory Assessment: Airway: visualization of the uvula- Yes Mouth: opening greater than 2 fingerbreadths- Yes Neck: full range of motion- Yes Breath sounds clear/equal- Yes Cardiac Assessment: Regular rate and rhythm without murmur Abdominal Assessment: Abdomen soft, non-tender, no masses or organomegaly. Sedation Plan: Moderate Additional Comments: None Shahid Moraes MD documented in this encounter [facility] 03-21-2022 Instructions Casandra Mcdaniel APRN.PORTFOLIO SPECIALIST - 03/21/2022 4:25 PM EDT Images from the original note were not included. Your procedure will be at [place] Follow the provided instructions for colonoscopy. You will be using GoLytely as the laxative during the preparation. You may start the laxative as early as 1:00 in the afternoon. The endoscopy staff will call you the day before the procedure with specific on arrival time. (Friday for Friday procedures). Start omeprazole 20mg daily Avoid NSAIDs (such as Advil, Ibuprofen, Excedrin, Mobic), tobacco, alcohol, carbonated beverages, caffeine, chocolate, tomato based sauces, spicy/fatty foods, and peppermint Avoid eating large meals. Avoid eating less than 3 hours before bed. Weight loss. Elevate the head of the bed 6 inches, or at least invest in a wedge pillow. - Start OTC probiotic with at least 15 billion live cultures, 10+ strains - Drink around 64 oz water daily - Benefiber daily: 2 teaspoons added to 8 ounces of water up to 3 times daily. - If no relief with fiber powder, start Miralax daily/PRN to induce bowel movement Miralax generally will help produce bowel movement in 1-3 days Fill to top of white section in cap which is marked to indicate the correct dose (17 g) Stir and dissolve in any 8 ounces of non-carbonated beverage (cold, hot or room temperature) then drink If diarrhea occurs, reduce usage to every other day Drink at least 64 oz water daily Benefiber daily or Metamucil Improving Your Health with Fiber This guide provides basic information to help you start increasing dietary fiber in your diet. These are general guidelines that may be tailored to meet your needs. Fiber is an important dietary substance to help support your health. Making changes in your current eating habits will help you eat more healthfully. Most fiber-containing foods are also good sources of vitamins, minerals, and antioxidants, which offer many health benefits. A registered dietitian can provide in-depth nutrition education to help you develop a personal action plan. What is fiber? Fiber is the structural part of plant foods--such as fruits, vegetables, and grains--that our bodies cannot digest or break down. There are two kinds of fiber: soluble and insoluble. Soluble fiber: dissolves in water to form a gummy gel. It can slow down the passage of food from the stomach to the intestine. Examples: dried beans, oats, barley, banana, potatoes, and soft parts of apples and pears Insoluble fiber: often referred to as "roughage" because it does not dissolve in water. It holds onto water, which helps produce softer, bulkier stools to help regulate bowel movements. Examples: whole bran, whole grain products, nuts, corn, carrots, grapes, berries, and peels of apples and pears What other things does fiber do? Research has shown that a diet rich in fiber is associated with many health benefits, including the followin. Lowers cholesterol--Soluble fiber has been shown to lower cholesterol by binding to bile (composed of cholesterol) and taking it out of the body. This may help reduce the risk of heart disease. 2. Better regulates blood sugar levels--A high-fiber meal slows down the digestion of food into the intestines, which may help to keep blood sugars from rising rapidly. 3. Weight control--A high-fiber diet may help keep you hamilton longer, which prevents overeating and hunger between meals. 4. May prevent intestinal cancer--Insoluble fiber increases the bulk and speed of food moving through the intestinal tract, which reduces time for harmful substances to build up. 5. Constipation--Constipation can often be relieved by increasing the fiber or roughage in your diet. Fiber works to help regulate bowel movements by pulling water into the colon to produce softer, bulkier stools. This action helps to promote better regularity. How much fiber should I eat? The recommendation is to consume about 20-35 grams of total fiber per day, with 10-15 grams from soluble fiber. This can be accomplished by choosing 6 ounces of grains (3 or more ounces from whole grains), 2 cups of vegetables, and 2 cups of fruit per day (based on a 2,000 calorie/day pattern). Note: Eating a high-fiber diet may interfere with the absorption and effectiveness of some medications. Speak to your doctor about which medications to take with caution and when to take them. Fiber also binds with certain nutrients and carries them out of the body. To avoid this, aim for the recommended 20-35 grams of fiber per day. Some studies indicate that up to 50 grams of dietary fiber may help control blood sugars for people with diabetes. When eating a high-fiber diet, be sure to drink at least eight glasses of fluid each day. Tips for increasing dietary fiber in your diet: Add fiber to your diet slowly. Too much fiber all at once may cause cramping, bloating, and constipation. When adding fiber to your diet, be sure to increase fluids (at least 64 ounces per day) to prevent constipation. Buy bread with 2-4 grams of dietary fiber per slice. Buy cereals with at least 5 grams of dietary fiber per serving. Choose cereals with a whole grain such as whole wheat or whole grain rolled oats. Choose raw fruits and vegetables in place of juice. Choose products that have a whole grain listed as the first ingredient, not enriched flour. Whole wheat flour is a whole grain--wheat flour is not. Try alternative fiber choices such as whole buckwheat, whole wheat couscous, quinoa, and bulgur. Popcorn is a whole grain. Serve it low-fat without butter for a healthier snack choice. Try whole wheat bread and whole wheat pastas. Sprinkle bran in soups, cereals, baked products, spaghetti sauce, ground meat, and casseroles. Bran also mixes well with orange juice. Use dried peas, beans, and legumes in main dishes, salads, or side dishes such as rice or pasta. Eat the skins of raw fruits and vegetables. Add dried fruit to yogurt, cereal, rice, and muffins. Try brown rice and whole grain pastas. Choose crackers with a whole grain listed as the first ingredient. Look for whole grain rye and wheat crackers. How to read a food label Food labels are standardized by the U.S. government's National Labeling and Education Act (NLEA). Nutrition labels and an ingredient list are required on most foods, so that you can make the best selection for a healthy lifestyle. Review the food label. Determine the total amount of fiber in this product or ask your dietitian or health care provider to show you how to read food labels and apply the information to your personal needs. In order for a product to be labeled "high fiber," it must contain 5 grams or more of dietary fiber per serving. Fiber supplements Fiber supplements may be an option if you are not able to get enough fiber from your diet. Fiber supplements can be used to normalize both constipation and diarrhea. Check with your doctor before starting any kind of supplement. Read labels for fiber carefully. Drink at least 8 ounces of liquids with your supplement. Taking some fiber supplements without adequate liquids may cause the fiber to swell and may cause choking. Some fiber supplements to consider are Benefiber (hydrolyzed guar gum-soluble fiber), Metamucil (psyllium), Konsyl (psyllium), Citrucel (methylcellulose), Fibercon (calcium polycarbophil), and Fiberall (multiple sources of fiber). Psyllium husk and guar gum are soluble fibers. Consider keeping a food journal and tracking how much fiber you eat in a typical day. Use the fiber content chart in this handout as a guide to meeting your high fiber goal or check with www.NAL.usda.gov/fnic for additional information on the dietary fiber content of food. Food Category Food Serving Size Total Fiber (grams) Soluble Fiber (grams) Starches, Grains, Starchy vegetables Breads: Bagel-whole wheat Light white/wheat Marie-Whole wheat Pumpernickel Whole wheat [place] 3 1/2 inches 2 slices 7 inches slice slice slice 3 1 4 3 2 2 1 trace 1 1 trace 1 Cereals: Bran Flakes Cheerios Oatmeal Fiber One All Bran Kashi Heart to Heart 3/4 cup 1 1/4 cup 1 cup cooked 1/2 cup 2/3 cup 3/4 cup 5 4 4 14 13 5 trace 1 2 1 1 1 Grains: Barley Brown rice Pasta-whole wheat 1/2 cup cooked 1/2 cup 1/2 cup cooked 4 2 3 1 trace 1 Legumes and starchy vegetables: Garbanzo beans Kidney beans Lentils Potato (with skin) Potatoes, sweet Squash (winter) Green peas, cooked [place] beans [place], cooked 1/2 cup 1/2 cup 1/2 cup 1 medium 1/2 cup 1/2 cup 1/2 cup 1/2 cup 1/2 cup 4 6 5 3 4 3 4 7 2 1 3 1 1 2 2 1 3 trace Nuts and Seeds Almonds Peanuts [place] seeds Walnuts 1/4 cup 1/4 cup 1/4 cup 1/4 cup 3 3 3 2 1 1 1 trace Fruits Apple with skin Banana Blueberries Grapefruit [place] Pear with skin Prunes Strawberries 1 medium 1 medium 1 cup 1/2 cup 1 medium 1 medium 3 1 cup 3 2 2 1 3 4 2 4 1 1 trace 1 2 2 1 1 Vegetables, non-starchy Broccoli [place] sprouts Cabbage-green Carrot Cauliflower Green beans Kale Spinach Squash (zucchini) 1/2 cup 1/2 cup 1 cup, fresh 1/2 cup cooked 1/2 cup cooked 1/2 cup 1/2 cup 1/2 cup 1/2 cup 3 4 2 2 1 2 3 2 1 1 2 1 1 trace 1 1 1 1 Copyright 9660-6747 [facility]. All rights reserved. This information is provided by the [facility] and is not intended to replace the medical advice of your doctor or health care provider. Please consult your health care provider for advice about a specific medical condition. For additional health information, please contact the Center for Consumer Health Information at the [facility] or toll-free extension [phone]. If you prefer, you may visit [email or web address] or [email or web address]. This document was last reviewed on: 2010 index#[id number] Bowel Preparation Instructions for: Golytely, Nulytely, Trilyte or Colyte (polyethylene glycol 3350 and electrolytes) IF YOU DO NOT FOLLOW THESE DIRECTIONS, YOUR COLONOSCOPY WILL BE CANCELLED. [place] Instructions: Your bowel must be empty so that your doctor can clearly view your colon. Follow all of the instructions in this handout EXACTLY as they are written. Do NOT eat any solid food the ENTIRE day before your colonoscopy. Drink only clear liquids. Buy your bowel preparation at least 5 days before your colonoscopy. TRANSPORTATION on the Day of Your Exam A responsible person MUST be present with you at Check In prior to your colonoscopy and REMAIN in the endoscopy area until you are discharged. You are NOT ALLOWED to drive, take a taxi or bus, or leave the Endoscopy Center ALONE. If you do not have a responsible hi low truck driver (family member or friend) with you to take you home, your exam cannot be done with sedation and will be cancelled. Please bring a list of all of your current medications, including any Over-the Counter medications with you. Medications If you take insulin, diabetic medications or blood thinners such as Coumadin (warfarin), Plavix (clopidogrel), Ticlid (ticlopidine hydrochloride), Agrylin (anagrelide), Xarelto (Rivaroxaban), Pradaxa (Dabigatran), Eliquis (Apixaban), and Effient (Prasugrel). You MUST call the doctors who orders those medicines for instructions on altering the dosage before your colonoscopy. All other medications should be taken the day of the exam with a sip of water including ASPIRIN. Five (5) Days Before Your Colonoscopy Do NOT take medicines that stop diarrhea - such as Imodium, Kaopectate, or Pepto Bismol. Do NOT take fiber supplements - such as Metamucil, Citrucel, or Perdiem. Do NOT take products that contain iron - such as multi-vitamins (the label lists what is in the products). Do NOT take Vitamin E. Buy the prescription bowel preparation solution at your local pharmacy or drugstore pharmacy. 10/2019 Bowel Preparation Instructions for: Golytely, Nulytely, Trilyte or Colyte (polyethylene glycol 3350 and electrolytes) Three (3) Days Before Your Colonoscopy Do NOT eat high-fiber foods - such as popcorn, beans, seeds (flax, sunflower, quinoa), multigrain bread, nuts, salad/vegetables, or fresh and dried fruit. One (1) Day Before Your Colonoscopy Only drink clear liquids the ENTIRE DAY before your colonoscopy. Do NOT eat any solid foods. Drink at least 8 ounces of clear liquids every hour after waking up. The clear liquids you can drink include: Clear Liquid (NO RED LIQUIDS) DO NOT DRINK Gatorade, Pedialyte or Powerade Clear broth or bouillon Coffee or tea (no milk or non-dairy creamer) Carbonated and non-carbonated soft drinks Prieto-Aid or other fruit flavored drinks Strained fruit juices (no pulp) Jell-O, popsicles, hard candy Water Alcohol Milk or non-dairy creamers Noodles or vegetables in soup Juice with pulp Liquid you cannot see through The bowel preparation solution will be consumed in two parts. Mix the solution the evening before your colonoscopy and refrigerate before drinking. You may add the flavor pack that came with the bowel preparation. Do NOT add ice, sugar or any other flavorings to the solution. Part 1 At 6:00 PM - Evening before your colonoscopy Drink an 8-oz glass of bowel preparation every 10 minutes for a total of 8 glasses. You may continue to drink clear liquids until midnight. Part 2 On the day of your colonoscopy you may drink clear liquids up to (three) 3 hours before your procedure. 4 1/2 hours before your colonoscopy Drink an 8-oz glass of bowel preparation every 10 minutes for a total of 8 glasses. Fifteen (15) minutes later, drink an 8-oz glass of clear liquids every 15 minutes for a total of 2 glasses. You may continue to drink clear liquids up to (three) 3 hours before your exam. 8 10/2019 documented in this encounter [facility] 03-21-2022 History of Present illness Narrative CHIEF COMPLAINT: Patient presents with: Abdominal cramping: Alternating constipation/diarrhea, weight loss This consult was requested by Margarito Smith MD for an opinion regarding unintentional weight loss. My final recommendations will be communicated to the requesting health care provider by way of the shared medical record for internal providers or letter via the [place] [employer] for external providers. HPI: Ce Baer II is a 36 year old male with a past medical history bipolar, depression, headaches, history of alcohol use disorder, history of substance abuse and hypertension. Who presents for abdominal pain and unintentional weight loss. Patient reports 3-4 years ago starting off very fatigued and thrush in his mouth - decrease appetite Reports his stomach is bloated looks like he is and becomes tired and irritable. Reports diary - milk, ice cream. Nuts, chick peas, carbonated drinks, ETOH - caffeine limit with these foods he reports he will becomes bloated, abdominal cramps and constipation - He reports he is taking laxatives daily and noticed now he has to take 5-7 dulcolax - he is now taking soft chews and over night relief to have a bowel movements. He is will use magnesium citrate a couple times a month to start things moving. Has not drank in many years because this causes abdominal pain. Patient denies nausea and vomiting Reports coughs at night but he is smoker The patient reports change in bowel habit. Having a bowel movement with his regimen will have a daily BM once or twice daily - episodes of constipation will be 3-4 weeks without BM and then will need to take magnesium citrate and then will continue with daily regimen and have daily BM and then have another episode of weeks without a BM. Patient reports he will have dark stool when he has been constipated for many days with mucus, he reports blood with wiping when he HM. He reports if he is really constipated he be really gassy. Patient reports he has tried miralax many times over the past years Patient smoker 1 ppd - Denies NSAID use Record Review: [facility] / Outside records reviewed. PAST MEDICAL HISTORY Diagnosis Date Bipolar 1 disorder ([facility]) 07/21/2019 Depression Headache History of alcohol use disorder 2018 History of substance abuse ([facility]) 2005 Hypertension 07/20/2019 PAST SURGICAL HISTORY Procedure Laterality Date NONE Allergies: ALLERGIES Allergen Reactions Iodine Rash Shellfish Derived Other: See Comments Medications: multivit with iron,minerals (MULTIVITAMIN AND MINERALS ORAL) Take by mouth once daily. omeprazole (PRILOSEC) 20 mg capsule Take 1 capsule by mouth once daily. peg 3350-Electrolytes (GOLYTELY) 236-22.74-6.74 -5.86 gram suspension Refer to printed prep instructions from your provider. FAMILY HISTORY Problem Relation Age of Onset Psoriasis Mother Systemic Lupus Erythematosus Mother Diabetes Father Hypertension Father Parkinsonism Father post head injury Seizures Father post head injury Systemic Lupus Erythematosus Sister Hypertension Sister No Known Problems Brother Diabetes Maternal Grandmother Liver Disease Maternal Grandmother Diabetes Maternal Grandfather Diabetes Paternal Grandmother Liver Disease Paternal Grandmother Diabetes Paternal Grandfather Liver Disease Paternal Grandfather Colon Cancer No Family History Employer And Job Title: None on file Years Of Education Completed: Not specified Marital Status: Single Social History Tobacco Use Smoking status: Current Every Day Smoker Packs/day: 1.00 Years: 12.00 Pack years: 12.00 Types: Cigarettes Smokeless tobacco: Never Used Vaping Use Vaping Use: Never used Substance Use Topics Alcohol use: Not Currently Alcohol/week: 42.0 standard drinks Types: 42 Cans of Beer (12oz) per week Comment: in recovery since 2018 Drug use: Not Currently Types: Marijuana, Narcotics Comment: quit age 20. Review of Systems: Review of Systems Constitutional: Positive for activity change, appetite change, chills, fatigue and unexpected weight change. HENT: Positive for mouth sores. Respiratory: Positive for cough, shortness of breath and wheezing. Gastrointestinal: Positive for abdominal distention, abdominal pain, constipation, diarrhea and rectal pain. Change in Bowel Habits, Gas All other systems reviewed and are negative. Are you taking any blood thinners? No Physical Examination: BP 139/86 Pulse 71 Ht 5' 8.5" (1.74m) Wt 212 lb (96.2kg) BMI 31.76 kg/(m^2). Last 6 Encounter Wt Readings: Date: Wt: 03/21/2022 96.2 kg (212 lb) 01/11/2022 93 kg (205 lb) 08/05/2019 122.8 kg (270 lb 12.8 oz) 07/21/2019 124.7 kg (275 lb) 07/20/2019 125.2 kg (276 lb) 05/27/2019 128.8 kg (284 lb)] Physical Exam Constitutional: Appearance: Normal appearance. He is normal weight. HENT: Head: Normocephalic and atraumatic. Eyes: Extraocular Movements: Extraocular movements intact. Pupils: Pupils are equal, round, and reactive to light. Cardiovascular: Rate and Rhythm: Normal rate and regular rhythm. Pulses: Normal pulses. Heart sounds: Normal heart sounds. Pulmonary: Effort: Pulmonary effort is normal. Breath sounds: Normal breath sounds. Abdominal: General: Abdomen is flat. Bowel sounds are normal. Palpations: Abdomen is soft. Musculoskeletal: General: Normal range of motion. Cervical back: Normal range of motion and neck supple. Skin: General: Skin is warm and dry. Neurological: General: No focal deficit present. Mental Status: He is alert and oriented to person, place, and time. Psychiatric: Mood and Affect: Mood normal. Behavior: Behavior normal. ASSESSMENT: Generalized abdominal pain (primary encounter diagnosis) Bloating Constipation, unspecified constipation type Unintentional weight loss PLAN: Assessment/Plan (R10.84) Generalized abdominal pain (primary encounter diagnosis) (R14.0) Bloating (K59.00) Constipation, unspecified constipation type (R63.4) Unintentional weight loss Patient presents today for multiple GI complaints genralized abdominal pain and constipation and bloating. Patient has been taking many laxatives for the past years. He reports taking daily 5-6 dulcolax tablets and needing to also take different OTC laxatives and still peck snot have a BM. He also reports having bloating, generalized abdominal pain and weight loss. Patient reports he has been having these issues for a long time and felt as though he was being ignored because of his psychiatric diagnosis. Recommend EGD with biopsies rule out H. Pylori. Recommend colonoscopy with biopsy rule out IBD versus IBS versus neoplasm. 1. Generalized abdominal pain - EGD DIAGNOSTIC; Future - COLONOSCOPY DIAGNOSTIC; Future - omeprazole (PRILOSEC) 20 mg capsule; Take 1 capsule by mouth once daily. Dispense: 30 capsule; Refill: 1 2. Bloating - EGD DIAGNOSTIC; Future - COLONOSCOPY DIAGNOSTIC; Future - omeprazole (PRILOSEC) 20 mg capsule; Take 1 capsule by mouth once daily. Dispense: 30 capsule; Refill: 1 3. Constipation, unspecified constipation type - COLONOSCOPY DIAGNOSTIC; Future - peg 3350-Electrolytes (GOLYTELY) 236-22.74-6.74 -5.86 gram suspension; Refer to printed prep instructions from your provider. Dispense: 4000 mL; Refill: 0 4. Unintentional weight loss - EGD DIAGNOSTIC; Future - COLONOSCOPY DIAGNOSTIC; Future Follow up in office 3 months/PRN. Recommended to please call office/go to ER if fever, chills, chest pain, SOB, diarrhea, nausea, emesis, worsening abdominal pain, dehydration occurs I spent 30 minutes in the visit, with more than 50% of the total [id number] time of the visit in counseling / coordination of care. I have confirmed and edited as necessary, the PFSH and ROS obtained by others. Casandra Mcdaniel APRN.CNP DATE: 03/21/22 TIME: 12:00 PM documented in this encounter [facility] Evaluation + Plan note No data available for this section [facility] Evaluation note Diagnosis Generalized abdominal pain- Primary Abdominal pain, generalized Bloating Flatulence, eructation, and gas pain Constipation, unspecified constipation type Unintentional weight loss Loss of weight [facility] Diagnosis Generalized abdominal pain Abdominal pain, generalized Bloating Flatulence, eructation, and gas pain Unintentional weight loss Loss of weight Constipation, unspecified constipation type documented in this encounter [facility] noteNo assessment information availableWUniversity [facility] Work Phone: Evaluation note* Diagnosis Suspected COVID-19 virus infection- Primary documented in this encounter [facility] note* Diagnosis Chronic cough- Primary Cough Contact with or exposure to mold Environmental allergies Other allergy, other than to medicinal agents Cigarette nicotine dependence without complication Tobacco use disorder documented in this encounter [facility] note* Diagnosis Suspected COVID-19 virus infection documented in this encounter [facility] note* Diagnosis Frequent urination- Primary Urinary frequency Epididymo-orchitis Orchitis and epididymitis, unspecified Renal stones Calculus of kidney Hypertrophy of prostate with urinary obstruction Hypertrophy of prostate with urinary obstruction and other lower urinary tract symptoms (LUTS) Incomplete bladder emptying Recurrent UTI Urinary tract infection, site not specified documented in this encounter [facility] note* Diagnosis Eloped from emergency department- Primary Aggressive behavior Explosive personality disorder [facility] Diagnosis Other microscopic hematuria [facility] this [facility] Diagnosis Right testicular pain- Primary Pelvic floor dysfunction Slow transit constipation [facility] Diagnosis Encounter for routine history and physical exam for male- Primary Bipolar 1 disorder (HCC) Primary hypertension Unspecified essential hypertension Fatigue, unspecified type Arthralgia, unspecified joint Acute gastroenteritis Other and unspecified noninfectious gastroenteritis and colitis Pain in both testicles Lipid screening Screening for lipoid disorders Other microscopic hematuria Other microscopic hematuria [facility] Diagnosis Pain in both testicles [facility] this [facility] Diagnosis Right testicular pain- Primary Pelvic floor dysfunction Slow transit constipation [facility] this [facility] Diagnosis Gastroesophageal reflux disease, unspecified whether esophagitis present- Primary Fatigue, unspecified type Acute gastroenteritis Other and unspecified noninfectious gastroenteritis and colitis [facility]* Diagnosis Cellulitis of all toes of left foot- Primary Encounter for generalized patient complaints Chronic night sweats Environment contains mold Arthralgia, unspecified joint History of blood clots Bipolar 1 disorder (HCC) Class 1 obesity due to excess calories without serious comorbidity with body mass index (BMI) of 32.0 to 32.9 in adult documented in this encounter [facility] [employer] [facility]* Diagnosis Cellulitis of all toes of left foot Arthralgia, unspecified joint Class 1 obesity due to excess calories without serious comorbidity with body mass index (BMI) of 32.0 to 32.9 in adult documented in this encounter [facility] [employer]* Diagnosis Leg pain, bilateral- Primary Pain in soft tissues of limb Bilateral leg paresthesia Disturbance of skin sensation documented in this encounter [facility] [employer]* Diagnosis 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 documented in this encounter [facility] [employer]* Diagnosis Oral thrush- Primary Candidiasis of mouth Thrush Candidiasis of mouth Tinea corporis Dermatophytosis of the body Nonintractable headache, unspecified chronicity pattern, unspecified headache type documented in this encounter [facility] Work Phone: Evaluation note* Diagnosis Thromboangiitis obliterans (Buerger's disease) (HCC) documented in this encounter [facility] [employer]* Diagnosis Thromboangiitis obliterans (Buerger's disease) (HCC) documented in this encounter [facility] [employer]* Diagnosis History of adenomatous polyp of colon- Primary Personal history of colonic polyps Irritable bowel syndrome with constipation Irritable bowel syndrome Bloating Flatulence, eructation, and gas pain documented in this encounter [facility] Work Phone: Evaluation note* Diagnosis Left foot pain- Primary Pain in soft tissues of limb Discoloration of skin of foot Leg pain, bilateral Pain in soft tissues of limb Candidal skin infection Bipolar 1 disorder (Multi) Obsessive-compulsive disorder, unspecified type Allergic reaction to drug, sequela documented in this encounter [facility] Work Phone: Evaluation note* Diagnosis 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- Primary 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 documented in this encounter [facility] [employer] note* Diagnosis Left foot pain- Primary Pain in soft tissues of limb Discoloration of skin of foot Leg pain, bilateral Pain in soft tissues of limb Candidal skin infection Bipolar 1 disorder (Multi) Obsessive-compulsive disorder, unspecified type Allergic reaction to drug, sequela Palpitations- Primary Chest pain, unspecified type documented in this encounter [facility] Work Phone: Evaluation note* Diagnosis Left foot pain- Primary Pain in soft tissues of limb Discoloration of skin of foot Leg pain, bilateral Pain in soft tissues of limb Candidal skin infection Bipolar 1 disorder (Multi) Obsessive-compulsive disorder, unspecified type Allergic reaction to drug, sequela Excessive anger- Primary Undersocialized conduct disorder, aggressive type, unspecified Primary hypertension Unspecified essential hypertension Bipolar 1 disorder (Multi) Tongue pain Glossodynia Generalized body aches Muscle cramps documented in this encounter [facility] Work Phone: Evaluation note* Diagnosis Encounter for integrative medicine visit- Primary Mold exposure Contact with and (suspected) exposure to mold Constipation, unspecified constipation type LUQ pain Abdominal pain, left upper quadrant Bloating Flatulence, eructation, and gas pain Mood disorder Unspecified episodic mood disorder Pain in both testicles 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 Persistent migraine aura without cerebral infarction, with intractable migraine, so stated, with status migrainosus Low alanine aminotransferase (ALT) level Hemochromatosis carrier Other genetic carrier status Deficiency of nutrient element, unspecified Disability affecting daily living Palpitations- Primary [facility] No data available for this section [facility] Hospital Discharge instructions Additional Instructions Continue your Bactrim and Keflex as prescribed until gone.[facility] Work Phone: Hospital Discharge instructions* Attachments The following attachments cannot be sent through Care Everywhere. * Home Headache Remedies (N[place]ien) [facility] Work [facility]: Progress note No data available for this section [facility] Reason for referral (narrative)* Outpatient Procedure (Routine) - Closed Specialty Diagnoses / Procedures Referred By Contac t Referred To Contact ENDOSCOPY Diagnoses Generalized abdominal pain Bloating Constipation, unspecified constipation type Unintentional weight loss Procedures COLONOSCOPY DIAGNOSTIC COLONOSCOPY FLX DX W/COLLJ SPEC WHEN PFRMD Casandra Mcdaniel APRN.PORTFOLIO SPECIALIST [address] [place] [address] [address] [place] [address] Referral ID Status Reason Start Date Expiration Date V isits Requested Visits Authorized [id number] Closed Auto-Generate d Referral 03/21/2022 03/21/2023 1 1 * Outpatient Procedure (Routine) - Closed Specialty Diagnoses / Procedures Referred By Contac t Referred To Contact ENDOSCOPY Diagnoses Generalized abdominal pain Bloating Unintentional weight loss Procedures EGD DIAGNOSTIC ESOPHAGOGASTRODUODENOSCOPY TRANSORAL DIAGNOSTIC Casandra Mcdaniel APRN.PORTFOLIO SPECIALIST [address] [place] [address] [address] [place] [address] Referral ID Status Reason Start Date Expiration Date V isits Requested Visits Authorized [id number] Closed Auto-Generate d Referral 04/02/2022 07/01/2022 1 1 [facility] for referral (narrative)* Outpatient Procedure (Routine) - Closed Specialty Diagnoses / Procedures Referred By Contac t Referred To Contact ENDOSCOPY Diagnoses Generalized abdominal pain Bloating Constipation, unspecified constipation type Unintentional weight loss Procedures COLONOSCOPY DIAGNOSTIC COLONOSCOPY FLX DX W/COLLJ SPEC WHEN PFRMCasandra Amaral APRN.PORTFOLIO SPECIALIST [address] [place] [address] [address] [place] [address] Referral ID Status Reason Start Date Expiration Date V isits Requested Visits Authorized [id number] Closed Auto-Generate d Referral 03/21/2022 03/21/2023 1 1 * Outpatient Procedure (Routine) - Closed Specialty Diagnoses / Procedures Referred By Contac t Referred To Contact ENDOSCOPY Diagnoses Generalized abdominal pain Bloating Unintentional weight loss Procedures EGD DIAGNOSTIC ESOPHAGOGASTRODUODENOSCOPY TRANSORAL DIAGNOSTIC Casandra Mcdaniel APRN.PORTFOLIO SPECIALIST [address] [place] [address] [address] [place] [address] Referral ID Status Reason Start Date Expiration Date V isits Requested Visits Authorized [id number] Closed Auto-Generate d Referral 04/02/2022 07/01/2022 1 1 [facility]No reason for referral information availableWUniversity [facility] Work Phone: Reason for visit Narrative* Outpatient Procedure (Routine) - Closed Specialty Diagnoses / Procedures Referred By Contac t Referred To Contact ENDOSCOPY Diagnoses Generalized abdominal pain Bloating Constipation, unspecified constipation type Unintentional weight loss Procedures COLONOSCOPY DIAGNOSTIC COLONOSCOPY FLX DX W/COLLJ SPEC WHEN PFRMD Casandra Mcdaniel APRN.PORTFOLIO SPECIALIST [address] [place] [address] [address] [place] [address] Referral ID Status Reason Start Date Expiration Date V isits Requested Visits Authorized [id number] Closed Auto-Generate d Referral 03/21/2022 03/21/2023 1 1 [facility] for visit Narrative* Imaging (Routine) - Closed Specialty Diagnoses / Procedures Referred By Contac t Referred To Contact Radiology Diagnoses Other microscopic hematuria Procedures CT abdomen pelvis wo IV contrast Scott Cuellar APRN - PORTFOLIO SPECIALIST [address] [place] [address] Phone: tel: fax: [facility] [place] [address] [place] [address] Phone: tel: fax: Referral ID Status Reason Start Date Expiration Date Visits Re quested Visits Authorized [id number] Closed 06/22/2025 06/22/2026 1 1 [facility] [employer] for visit Narrative* Imaging (Routine) - Closed Specialty Diagnoses / Procedures Referred By Contac t Referred To Contact Radiology Diagnoses 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 Procedures CT head wo IV contrast Scott Cuellar APRN - PORTFOLIO SPECIALIST [address] [place] [address] Phone: tel: fax: [facility] [address] [place] [address] Phone: tel: fax: Referral ID Status Reason Start Date Expiration Date Visits Re quested Visits Authorized Closed 07/14/2025 07/14/2026 1 1 [facility] for visit Narrative* Imaging (Routine) - Closed Specialty Diagnoses / Procedures Referred By Contac t Referred To Contact Cardiology Diagnoses Thromboangiitis obliterans (Buerger's disease) (HCC) Procedures Vascular US upper extremity arterial PVR Scott Cuellar APRN - PORTFOLIO SPECIALIST [address] [place] [address] Phone: tel: fax: Referral ID Status Reason Start Date Expiration Date Visits Re quested Visits Authorized Closed 07/14/2025 07/14/2027 1 1 [facility] for visit Narrative* Imaging (Routine) - Closed Specialty Diagnoses / Procedures Referred By Contac t Referred To Contact Cardiology Diagnoses Thromboangiitis obliterans (Buerger's disease) (HCC) Procedures Vascular US lower extremity arterial PVR/BLANK W/O Exercise Vascular US lower extremity arterial PVR/BLANK with exercise CryscarmellaScott reich, LAMINATION INSPECTOR - PORTFOLIO SPECIALIST [address] [place] [address] Phone: tel: fax: Referral ID Status Reason Start Date Expiration Date Visits Re quested Visits Authorized [id number] Closed 07/14/2025 07/14/2027 1 1 [facility] Summary Purpose Family History No Family History Records Found No data available for this section No Family History Records FoundNo Family History Records FoundNo Family History Records FoundNo Family History Records FoundNo Family History Records FoundNo Family History Records FoundNo Family History Records FoundNo Family History Records FoundNo Family History Records FoundNo Family History Records FoundNo Family History Records FoundNo Family History Records Found Advance Directives No Advanced Directives Records FoundDocuments on File Type Date Recorded 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 Expl 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 Advance Directive(s) 04/02/2022 12:10 PM Documents on File Type Date Recorded 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 No November 28, 2024 11:30am Living Will No March 15, 2025 4:53am Do you have a Healthcare Power of Enlisted Aircrew/Aerial Observer/Gunner? No March 15, 2025 4:53am Advance Directive Response Recorded Date/ Time Living Will No November 28 11:30am Do you have a Healthcare Power of Enlisted Aircrew/Aerial Observer/Gunner? No November 28, 2024 11:30am Living Will No March 16, 2025 4:13pm Do you have a Healthcare Power of Enlisted Aircrew/Aerial Observer/Gunner? No March 16, 2025 4:13pm Living Will No March 15, 2025 4:53am Do you have a Healthcare Power of Enlisted Aircrew/Aerial Observer/Gunner? No March 15, 2025 4:53am Advance Directive Response Recorded Date/ Time Living Will No November 28 024 11:30am Do you have a Healthcare Power of Enlisted Aircrew/Aerial Observer/Gunner? No November 28, 2024 11:30am Living Will No March 16, 2025 4:13pm Do you have a Healthcare Power of Enlisted Aircrew/Aerial Observer/Gunner? No March 16, 2025 4:13pm Living Will No March 19, 2025 4:32am Do you have a Healthcare Power of Enlisted Aircrew/Aerial Observer/Gunner? No March 19, 2025 4:32am Living Will No March 15, 2025 4:53am Do you have a Healthcare Power of Enlisted Aircrew/Aerial Observer/Gunner? No March 15, 2025 4:53am Healthcare Agents on File Name Relationship Healthcare Agent Relationshi p Communication Codie Baer Pending Sale To [facility] Agent Healthcare Agents on File Name Relationship Healthcare Agent Relationshi p Communication Codie Baer Pending Sale To [facility] Agent Healthcare Agents on File Name Relationship Healthcare Agent Relationshi p Communication Codie Baer Pending Sale To [facility] Agent Chief Complaint and Reason for Visit Chief Complaint RIB PAIN Chief Complaint RIB PAIN DENTAL Chief Complaint Admit Date LAC November 28, 2024 10:24am lower extremity March 15, 2025 4:5 2am Chief Complaint Admit Date LAC November 28, 2024 10:24am lower extremity March 15, 2025 4:5 2am cellulitis March 16, 2025 3:3 4pm Chief Complaint Admit Date LAC November 28, 2024 10:24am lower extremity March 15, 2025 4:5 2am cellulitis March 16, 2025 3:3 4pm multiple complaints March 19, 2025 4:2 2am Health Concerns Infection Onset Date Last Indicated Resolved Time COVID-19 Rule-Out 11/13/2022 11/13/2022 Additional Source Comments (unrecognized sect ion and content) No Status Records FoundNo Status Records FoundNo Status Records FoundNo Status Records FoundNo Status Records FoundNo Status Records FoundNo Status Records FoundNo Status Records FoundNo Status Records FoundNo Status Records FoundNo Status Records FoundNo Status Records FoundNo Status Records Found INFORMATION SOURCE (unrecogn ized section and content) DATE CREATED AUTHOR 02/07/2019 [facility] ([place] DATE CREATED AUTHOR AUTHOR'S ORGANIZ ATION 03/17/2025 [facility] DATE CREATED AUTHOR AUTHOR'S ORGANIZ ATION 03/24/2025 [facility] DATE CREATED AUTHOR AUTHOR'S ORGANIZ ATION 04/28/2025 [facility] DATE CREATED AUTHOR AUTHOR'S ORGANIZ ATION 07/18/2025 [facility] DATE CREATED AUTHOR AUTHOR'S ORGANIZ ATION 08/17/2025 [facility] DATE CREATED AUTHOR AUTHOR'S ORGANIZ ATION 08/20/2025 [facility] DATE CREATED AUTHOR AUTHOR'S ORGANIZ ATION 09/28/2025 [facility] DATE CREATED AUTHOR AUTHOR'S ORGANIZ ATION 10/02/2025 [facility] DATE CREATED AUTHOR AUTHOR'S ORGANIZ ATION 10/05/2025 [facility] DATE CREATED AUTHOR AUTHOR'S ORGANIZ ATION 10/07/2025 [facility] DATE CREATED AUTHOR AUTHOR'S ORGANIZ ATION 10/07/2025 [facility] DATE CREATED AUTHOR AUTHOR'S ORGANIZ ATION 10/13/2025 [facility] Source Comments (unrecognize d section and content) In the event this informatio n is protected by the Federal Confidentiality of Alcohol and Drug Abuse Patient Records regulations: The Federal rules restrict any use of the information to criminally investigate or prosecute any alcohol or drug abuse patient.[facility] the event this information is protected by the Federal Confidentiality of Alcohol and Drug Abuse Patient Records regulations: The Federal rules restrict any use of the information to criminally investigate or prosecute any alcohol or drug abuse patient.[facility] the event this information is protected by the Federal Confidentiality of Alcohol and Drug Abuse Patient Records regulations: The Federal rules restrict any use of the information to criminally investigate or prosecute any alcohol or drug abuse patient.[facility] the event this information is protected by the Federal Confidentiality of Alcohol and Drug Abuse Patient Records regulations: The Federal rules restrict any use of the information to criminally investigate or prosecute any alcohol or drug abuse patient.[facility] the event this information is protected by the Federal Confidentiality of Alcohol and Drug Abuse Patient Records regulations: The Federal rules restrict any use of the information to criminally investigate or prosecute any alcohol or drug abuse patient.[facility] HospitalIn the event this information is protected by the Federal Confidentiality of Alcohol and Drug Abuse Patient Records regulations: The Federal rules restrict any use of the information to criminally investigate or prosecute any alcohol or drug abuse patient.[facility] the event this information is protected by the Federal Confidentiality of Alcohol and Drug Abuse Patient Records regulations: The Federal rules restrict any use of the information to criminally investigate or prosecute any alcohol or drug abuse patient.[facility] HospitalIn the event this information is protected by the Federal Confidentiality of Alcohol and Drug Abuse Patient Records regulations: The Federal rules restrict any use of the information to criminally investigate or prosecute any alcohol or drug abuse patient.[facility] HospitalIn the event this information is protected by the Federal Confidentiality of Alcohol and Drug Abuse Patient Records regulations: The Federal rules restrict any use of the information to criminally investigate or prosecute any alcohol or drug abuse patient.[facility] HospitalIn the event this information is protected by the Federal Confidentiality of Alcohol and Drug Abuse Patient Records regulations: The Federal rules restrict any use of the information to criminally investigate or prosecute any alcohol or drug abuse patient.[facility] HospitalIn the event this information is protected by the Federal Confidentiality of Alcohol and Drug Abuse Patient Records regulations: The Federal rules restrict any use of the information to criminally investigate or prosecute any alcohol or drug abuse patient.[facility] HospitalIn the event this information is protected by the Federal Confidentiality of Alcohol and Drug Abuse Patient Records regulations: The Federal rules restrict any use of the information to criminally investigate or prosecute any alcohol or drug abuse patient.[facility] HospitalIn the event this information is protected by the Federal Confidentiality of Alcohol and Drug Abuse Patient Records regulations: The Federal rules restrict any use of the information to criminally investigate or prosecute any alcohol or drug abuse patient.[facility] Reason for Visit (unrecogniz ed section and content) Reason Comments Abdominal cramping Alternating constipa tion/diarrhea, weight loss Specialty Diagnoses / Procedures Referred By Mauricio kaiser Referred To Contact Gastroenterology Diagnoses Abnormal intentional weight loss Alternating constipation and diarrhea Abdominal cramps Procedures CONSULT TO GASTROENTEROLOGY OFFICE/OUTPATIENT [facility] 60-74 MINUTES Margarito Smith MD [address] [place] [address] Referral ID Status Reason Start Date Expiration Date V isits Requested Visits Authorized [id number] Closed PCP Requested Referral 01/11/2022 01/11/2023 1 1 Reason Comments Patient Update Reason Comments Head Congestion headache, loss of ta edy and smell, cough and sore throat x 8 days Reason Comments Appointment Reason Comments Establish Care referal Reason Onset Date Comments Wheezing 07/29/2024 Reason Comments Consult Here for abdominal p ain,groin pain, feels like he is unable to empty at times. He helped a friend move in October he felt like he had an umbilical hernia. He is having frequency little amounts. Blood in stools. Reason Onset Date Comments Other 06/13/2025 Multiple Issues Reason Comments Rectal Bleeding Blood in Urine Reason Onset Date Comments Other 06/24/2025 Central scheduli ng Reason Comments New Patient Testicle Pain Unable to give a uri ne sample at this time Reason Comments New Patient Establish Care Reason Comments New Patient Cellulitis L foot Specialty Diagnoses / Procedures Referred By Mauricio kaiser Referred To Contact Infectious Diseases Diagnoses Cellulitis of all toes of left foot Procedures [place] OFFICE/OUTPATIENT [facility] 60 MINUTES Scott Cuellar, TATE - PORTFOLIO SPECIALIST [address] [facility] [address] [place] [address] Phone: tel: fax: [facility] Infectious Disease - [address] [place] [address] Phone: tel: fax: Referral ID Status Reason Start Date Expiration Date V isits Requested Visits Authorized [id number] Closed Specialty Services Required 06/23/2025 06/23/2026 1 1 Reason Onset Date Comments Error (VOID this visit) 07/08/2025 Reason Comments New Patient (ref Scott Oliver P) SOCIAL SCIENCE RESEARCH ASSISTANT eval for mutliple complaints- poss Buerger's dz, no testing (requested ) Specialty Diagnoses / Procedures Referred By Mauricio kaiser Referred To Contact Vascular Surgery Diagnoses Cramp of both lower extremities Procedures [place] OFFICE/OUTPATIENT NEW HIGH MDM 60 MINUTES Scott Cuellar APRN - PORTFOLIO SPECIALIST [address] [place] [address] Phone: tel: fax: [facility] Vascular - [place] [address] [place] [address] Phone: tel: fax: Referral ID Status Reason Start Date Expiration Date Visits Requested Visits Authorized Pending Review Specialty Services Required 07/08/2025 07/08/2026 1 1 Reason Comments Migraine Complains of migrain e on and off for 2 weeks and intermittent CP as well. Complains of throbbing in the left side of his latter day and throat. States that its not hurting now, but it was on the way here Reason Onset Date Comments Headache 07/14/2025 Reason Onset Date Comments Request For Order(s) 07/15/2025 CT Scans / PVR Testing Reason Onset Date Comments Pre-visit Planning 07/21/2025 Appointment Confirmation 07/21/2025 Reason Onset Date Comments Referral 07/13/2025 Reason Comments Establish Care Foot Pain Reason Onset Date Comments Referral 07/08/2025 Reason Onset Date Comments Referral 07/11/2025 Reason Onset Date Comments Referral 07/22/2025 Reason Onset Date Comments Orders 07/15/2025 Reason Comments Irregular Heart Beat C/o chest discomfor t, hypertension, irregular heart beat, extremity swelling and discoloration on and off for awhile. States he saw a vascular dr 2 days ago and he didn't do any tests. Reason Comments Establish Care EST NEW. C/O MUSC LE SPASMS ALL OVER BODY, TONGUE FEELS RAW AND HURTS WHOLE MOUTH SMITH SINCE MAY. HAS SEEN ENT ER AND DENTIST, PALPITATIONS WITH SOB AND DIZZINESS Reason Comments Chest Pain Palpitations Goals (unrecognized section and content) Goals may be documented in a n alternate sectionGoals may be documented in an alternate section No data available for this sectionGoals may be documented in an alternate sectionGoals may be documented in an alternate sectionGoals may be documented in an alternate section Patient Care team informatio n (unrecognized section and content) Team Status: Active Member Role Status Dates Dr. Elizabeth Argueta DO Primary Care Provider Active Team Status: Inactive Member Role Status Dates No Primary Care Physician Primary Care Provider Active Start: November 28, 2024 End: November 28, 2024 Dr. Harris Aviles DO Attending Provider Active Start: November 28, 2024 End: November 28, 2024 Dr. Harris Aviles , Emergency Provider Active Start: November 28, 2024 End: November 28, 2024 Team Status: Inactive Member Role Status Dates Dr. Claude Cortes DO Emergency Provider Active Start: March 15, 2025 End: March 15, 2025 Dr. Elizabeth Argueta , Primary Care Provider Active Start: March 15, 2025 End: March 15, 2025 Team Status: Inactive Member Role Status Dates Dr. Elizabeth Argueta DO Primary Care Provider Active Start: March 16, 2025 End: March 16, 2025 Dr. Ari Walls , Referring Provider Active Start: March 16, 2025 End: March 16, 2025 Dr. Ari Walls , Emergency Provider Active Start: March 16, 2025 End: March 16, 2025 Team Status: Inactive Member Role Status Dates Dr. Elizabeth Argueta DO Primary Care Provider Active Start: March 19, 2025 End: March 19, 2025 Dr. 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 Start Date End Date Shelly Izquierdo MD [address] [place] [address] PCP - General Internal Medicine 06/22/25 Scott Santamaria MD [address] [place] [address] Urology 06/27/25 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 Start Date End Date Shelly Izquierdo MD [facility] [place] [address] PCP - General Internal Medicine 06/22/25 Scott Santamaria MD [address] [place] [address] Urology 06/27/25 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 Start Date End Date Shelly Izquierdo MD [facility] [place] [address] PCP - General Internal Medicine 06/22/25 Scott Santamaria MD [address] [place] [address] Urology 06/27/25 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 Start Date End Date Shelly Izquierdo MD [address] [place] [address] PCP - General Internal Medicine 06/22/25 Scott Santamaria MD [address] [place] [address] Urology 06/27/25 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 Start Date End Date Shelly Izquierdo MD [address] [place] [address] PCP - General Internal Medicine 06/22/25 Scott Santamaria MD [address] [place] [address] Urology 06/27/25 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 Start Date End Date Shelly Izquierdo MD [address] [place] [address] PCP - General Internal Medicine 06/22/25 Scott Santamaria MD [address] [place] [address] Urology 06/27/25 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 Start Date End Date Shelly Izquierdo MD [facility] [address] [place] [address] PCP - General Internal Medicine 06/22/25 Scott Santamaria MD [address] [place] [address] Urology 06/27/25 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 Start Date End Date Shelly Izquierdo MD [address] [place] [address] PCP - General Internal Medicine 06/22/25 Scott Santamaria MD [address] [place] [address] Urology 06/27/25 Joycelyn Ariza MD [address] [place] [address] Vascular Surgery 8/11/25 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 Start Date End Date Shelly Izquierdo MD [address] [place] [address] PCP - General Internal Medicine 06/22/25 Scott Santamaria MD [address] [place] [address] Urology 06/27/25 Joycelyn Ariza MD [address] [place] [address] Vascular Surgery 07/11/25 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 Start Date End Date Shelly Izquierdo MD [address] [place], [place] [id number] PCP - General Internal Medicine 06/22/25 Scott Santamaria MD [address] [place] [address] Urology 06/27/25 Joycelyn Ariza MD [address] [place] [address] Vascular Surgery 07/11/25 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 Start Date End Date Generic Provider, No [place] [address] PCP - General Credit Charge Authorizer 07/18/25 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 Start Date End Date Shelly Izquierdo MD [address] [place] [address] PCP - General Internal Medicine 06/22/25 Scott Santamaria MD [address] [place] [address] Urology 06/27/25 Joycelyn Ariza MD [address] [place] [address] Vascular Surgery 07/11/25 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 Start Date End Date Shelly Izquierdo MD [address] [place] [address] [address] [place] [address] PCP - General Internal Medicine 06/22/25 07/18/25 Scott Santamaria MD [address] [place] [address] Urology 06/27/25 Joycelyn Ariza MD [address] [place] [address] Vascular Surgery 07/11/25 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 Start Date End Date Scott Santamaria MD [address] [place] [address] Urology 06/27/25 Joycelyn Ariza MD [address] [place] [address] Vascular Surgery 07/11/25 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 Start Date End Date Scott Santamaria MD [address] [place] [address] Urology 06/27/25 Joycelyn Ariza MD [address] [place] [address] Vascular Surgery 07/11/25 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 Start Date End Date Scott Santamaria MD [address] [place] [address] Urology 06/27/25 Joycelyn Ariza MD [address] [place] [address] Vascular Surgery 07/11/25 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 Start Date End Date Scott Santamaria MD [address] [place] [address] Urology 06/27/25 Joycelyn Ariza MD [address] [place] [address] Vascular Surgery 07/11/25 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 Start Date End Date Scott Santamaria MD [address] [place] [address] Urology 06/27/25 Joycelyn Ariza MD [address] [place] [address] Vascular Surgery 07/11/25 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 Start Date End Date Shelly Izquierdo MD [address] [place] [address] PCP - General Internal Medicine 06/22/25 07/18/25 Scott Santamaria MD [address] [place] [address] Urology 06/27/25 Joycelyn Ariza MD [address] [place] [address] Vascular Surgery 07/11/25 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 Start Date [place] [address] [address] PCP - General Internal Medicine 07/29/25 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 Start Date End Date Scott Santamaria MD [address] [place] [address] Urology 06/27/25 Joycelyn Ariza MD [address] [place] [address] Vascular Surgery 07/11/25 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 Start Date End Date Shelly Izquierdo MD [address] [place] [address] [address] [place] [address] PCP - General Internal Medicine 06/22/25 07/18/25 Scott Santamaria MD [address] [place] [address] Urology 06/27/25 Joycelyn Ariza MD [address] [place] [address] Vascular Surgery 07/11/25 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 Start Date End Date Scott Santamaria MD [address] [place] [address] Urology 06/27/25 Joycelyn Ariza MD [address] [place] [address] Vascular Surgery 07/11/25 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 Start Date End Date Shelly Izquierdo MD [address] [place] [address] [address] [place] [address] PCP - General Internal Medicine 06/22/25 07/18/25 Scott Santamaria MD [address] [place] [address] Urology 06/27/25 Joycelyn Ariza MD [address] [place] [address] Vascular Surgery 07/11/25 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 Start Date End Date Scott Santamaria MD [address] [place] [address] Urology 06/27/25 Joycelyn Ariza MD [address] [place] [address] Vascular Surgery 07/11/25 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 Start Date End Date Generic Provider, [place] [address] PCP - General Credit Charge Authorizer 09/29/25 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 Start Date End Date Joy Will MD [address] [place] [address] PCP - General Internal Medicine 10/05/25 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 Start Date End Date Scott Cuellar [facility] [address] [place] [address] PCP - General 07/12/25 Scheduled Active and Recently Administ ered Medications (unrecognized section and content) Medication Order 07/16/2025 07/17/2025 07/18/2025 fluconazole (Diflucan) tablet 150 mg (COMPLETED) 150 mg, oral, Once, On 07/18/25 at 2350, For 1 dose, Coverage: Shayla albicans, Infection Site: Oropharyngeal 2355 (Given - Provid er: Jacquelyn Elkins RN) gadoterate meglumine (Dotarem) 0.5 mmol/mL contrast injection 20 mL (COMPLETED) 20 mL, intravenous, Once in imaging, Starting on Fri07/18/25 at 2259, For 1 dose, Administer undiluted as rapid I.V. bolus injection 2259 (Given - Provid er: Belem Cerda) FOR RECORDS PERTAINING TO PATIENTS WHO ARE OR HAVE BEEN ENROLLED IN A CHEMICAL DEPENDENCY/SUBSTANCEABUSE PROGRAM, SOME INFORMATION MAY BE OMITTED. This clinical summary was aggregated from multiple sources. Caution should be exercised in using it in the provision of clinical care. This summary normalizes information from multiple sources, and as a consequence, information in this document may materially change the coding, format and clinical context of patient data. In addition, data may be omitted in some cases. CLINICAL DECISIONS SHOULD BE BASED ON THE PRIMARY CLINICAL RECORDS. [employer] provides no warranty or guarantee of the accuracy or completeness of information in this document.
== END 2025-10-16 03:56 | disposition left against medical advice (07) ==
PROVIDERS: Emergency Provider Emergency Medicine; Visit Provider Emergency Medicine
DX: R07.89 Other chest pain (principal); R00.2 Palpitations; R06.00 Dyspnea, unspecified; Z79.899 Other long term (current) drug therapy; F17.210 Nicotine dependence, cigarettes, uncomplicated
CPT/HCPCS: 93005; 99282

== ENCOUNTER 2025-11-27 19:24 | Emergency (ER) | payer MEDICARE, MEDICAID, SELFPAY ==
[2025-11-27 19:27] VITALS: BP 136/102; PULSE 127; RESP 18; TEMP 35.9; O2SAT 97; BMI 34.5
--- NOTE | 2025-11-27 19:37 | EDS_ITS ---
HPI History of Present Illness Chief Complaint: Chest Pain [facility] Medical History Laceration Obsessive compulsive disorder Depression Bipolar disorder Home Medications ?Medication ?Instructions ?Recorded ?Last Taken ?Type Bifidobacterium infantis 10.5 mg 10.5 mg PO DAILY 10/01 02/22 Unknown History (10 million cell) chewable tablet (Align (B.infantis)) fexofenadine .ROUTE 11/27/25 Unknown Hist ory fluticasone propionate 50 1 spray intranasal DAILY PRN 11/27/25 Unknown History mcg/actuation nasal allergy symptoms spray,suspension (24 Hour Allergy Relief) losartan 50 mg-hydrochlorothiazide 1 tab PO DAILY 11/01 07/25 Unknown History 12.5 mg tablet Allergy/AdvReac Type Severity Reaction Status Date / Time iodine Allergy Rash Verified 11/27/25 19:34 shellfish derived Allergy Anaphylaxis Verified 11/27/25 19:34 Sulfa (Sulfonamide Allergy Anaphylaxis Verified 11/27/25 19:36 Antibiotics) (sulfa drugs) Social History Smoking Status: Current some day smoker tobacco type: cigarettes EXAM Physical Exam Const Vital Signs: 11/27/25 19:27 11/27/25 19:57 11/27/25 20:02 Temperature 96.6 F L Temperature Source Temporal Pulse Rate 127 H 135 H Respiratory Rate 18 22 H Respiratory Effort Normal Blood Pressure 136/102 H 140/98 H Blood Pressure Mean 113 112 Pulse Ox 97 97 Oxygen Delivery Method Room Air Room Air 11/27/25 20:15 Temperature Temperature Source Pulse Rate 124 H Respiratory Rate 28 H Respiratory Effort Blood Pressure 138/96 H Blood Pressure Mean 109 Pulse Ox 95 Oxygen Delivery Method MDM MDM MDM Narrative Medical decision making narrative: HISTORY OF PRESENT ILLNESS: Chief complaint: Chest pain 40-year-old male history of tobacco use, hypertension, OCD, depression, bipolar disorder presents with chest pain. He notes symptoms been ongoing for the last 3 months. He endorses history of multiple ED visits and cardiology and PCP follow-ups. He notes his most recent ED visit last night yielded no diagnosis but the physician there thought he was anxious to offer him Vistaril. He states he is not anxious because Vistaril did not help him. He called the nurse jeremy bruce who told him to come into the emergency department if you still having symptoms. He notes his symptoms have been ongoing for 3 months. He denies any exertional component. The patient denies recent surgery in the last 4 weeks or immobilization in the last 3 days, denies previous diagnosis of DVT or PE, hemoptysis, unilateral leg swelling or malignancy with treatment the last 6 months or palliative. No estrogen use noted. Patient denies sudden onset of pain, no tearing sensation, no migratory symptoms, no new numbness, weakness or loss of sensation. Patient denies family history or personal history of Connective tissue disorders (Marfan's Syndrome, Addie Danlos etc). Patient denies drug use. Denies hallucinations. Denies suicidal homicidal ideations. The patient endorses medication noncompliance. He states he has not taken metoprolol because it would interfere with his history of asthma. He also notes he has not taken his blood pressure medicine because it would interfere with the Vistaril. The patient denies alcohol or illicit drug use. Denies any drinks or caffeine use. REVIEW OF SYSTEMS: Pertinent positives: CP, palpitations Pertinent negatives: As per HPI PHYSICAL EXAM: Nursing triage notes reviewed, Vital signs reviewed Constitutional: please see mdm HENT: MMM Eyes: Pupils equal round and reactive to light, Extraocular muscles intact Neck: No stridor, no JVD, full neck ROM Lungs: Clear to auscultation, No wheezing or rales. No increased work of breathing, no conversational dyspnea, no accessory muscle use, no nasal flaring. No respiratory distress noted Heart: Fast rate and rhythm, No murmurs, No rubs and No gallops, 2+ distal pulses (radial, femoral, posterior tibial) in all extremities Abdomen: Soft, there is no tenderness, rigidity, rebound or guarding, no obvious peritoneal signs, no palpable pulsatile abdominal masses, no auscultated abdominal bruit : No CVAT Extremities: No edema Neuro: No new focal neurological deficits, cranial nerves II through XII intact, 5/5 strength in all present extremities. Intact sensation to light touch in all present extremities, 2+ reflexes bilateral patella tendons. Skin: No rash or lesions noted MEDICAL DECISION MAKING: Chief Complaint: please see HPI External records reviewed: Reviewed prior cardiovascular testing. Reviewed [facility]. Noted multiple different care encounters over the last 4 days. Counted 15 encounters in the month of October patient received a D-dimer test yesterday on 11/26/2025 which was negative. Troponin was negative at this time as well. CBC from recent evaluation showed no leukocytosis, no anemia, there is no significant electrolyte abnormalities, no signs of metabolic acidosis on BMP. Troponins were negative. Serum alcohol was negative. Magnesium was within within normal limits. TSH was unremarkable. Reviewed recent Holter monitor report in which the patient was diagnosed with PVCs and prescribed metoprolol. Reviewed echocardiogram from November 22, 2025 which showed ejection fraction of 55%. Normal left ventricular function Factors affecting care: n as per HPI Social determinants of health: History mental health disorder History obtained from others: none Consults: none [facility] Narrative: The patient was initially tachycardic but otherwise hemodynamically stable afebrile and nontoxic-appearing. Exam without focal cardiopulmonary abnormalities. The patient did not appear anxious or nervous. He was not responding to internal stimuli. No stigmata VTE, PE or CHF initial exam I considered the following differential diagnosis: ACS, arrhythmia, anemia, electro disturbance, PE, aortic dissection I considered PE given the patient's initial tachycardia his Wells score was low risk and he had a negative D-dimer within the last 24 hours. Low suspicion for PE. I considered aortic dissection with the patient no pulse deficits, no focal constance rologic deficits, no history that makes high risk for aortic dissection. I offered to obtain labs and images to further determine if the patient was suffering from a life-threatening etiology. I had a shared decision-making discussion with the patient. Discussed his multiple recent ED evaluations. Discussed his multiple recent lab and imaging evaluations which have yielded no life-limiting etiology. Discussed he recently had a full emergency department cardiopulmonary workup which was negative in the last 24 hours. Discussed his already prescribed metoprolol. Discussed his medication noncompliance. Offered symptomatic treatments and labs and images tonight however patient refused he noted he would like to go home and follow with his primary care physician. Discussed risk of benefits of ED evaluation versus discharge home with close outpatient follow-up. I encouraged the patient to follow-up with his toe former stitchdowns and to return to the ED if his symptoms change or worsen. I further encouraged patient to continue taking prescribed medications. ALL IMAGES (IF OBTAINED) HAVE BEEN PERSONALLY REVIEWED AND INTERPRETED BY MYSELF. EKG with sinus tachycardia at 127, normal axis, no intervals, no STEMI. No right heart strain. No signs of pericarditis The patient and/or family, caregivers express understanding. The patient and/or family, caregivers agrees with the plan. Shared decision making: I will have a discussion with the patient and or visitors regarding risk/benefits of further testing or admission. They will be made aware of of the risk/benefits inherent in this decision they will be given the opportunity to voice understanding. Total critical care time today provided was at least 0 minutes. This excludes separately billable procedures. Critical care time (if documented) is secondary to the patient having high probability of clinically significant/life threatening deterioration in the patient's condition which required my urgent intervention. Impression: 1. Chronic chest pain 2. Palpitations 3. Tachycardia Dispo: Discharge home This note was generated with [employer] dictation software. It may contain incorrect words, spelling, and punctuation that were not noted in review of the chart prior to signing. Discharge Plan Triage Chief Complaint: Chest Pain ED Provider: Saleem Li Dx/Rx/DC Orders Instructions: ED Chest Pain, Uncertain Cause, ED Heart Palpitations Prescriptions: No Action losartan-hydrochlorothiazide 50-12.5 mg tablet 1 tab PO DAILY fexofenadine [Vivi Allergy] .ROUTE fluticasone propionate [24 Hour Allergy Relief] 50 mcg/actuation spray,suspension 1 spray intranasal DAILY PRN (Reason: allergy symptoms) Rx Instructions: administer into each nostril Align (B.infantis) 10.5 mg (10 million cell) tablet,chewable 10.5 mg PO DAILY Primary Care Provider: CITLALI FLETCHER Referrals: Loco Glez MD [Med Staff - Active Staff, Cardiology] Activity Restrictions/Additional Instructions: Thank you for trusting us with your care today! We agreed to not pursue labs images as you had recently received a full cardiopulmonary workup multiple times over the last several weeks. Please take medications as prescribed including your home blood pressure medication and metoprolol. Please return to the emergency department if your symptoms change or worsen. Please follow with your primary care physician for further outpatient evaluation and management. Print Language: Faroese Disposition Disposition: Home, Self Care
--- NOTE | 2025-11-27 19:38 | EKG12_ITS ---
Test Reason : CP Blood Pressure : */* mmHG Vent. Rate : 127 BPM Atrial Rate : 127 BPM P-R Int : 150 ms QRS Dur : 92 ms QT Int : 306 ms P-R-T Axes : 56 71 -18 degrees QTcB Int : 444 ms Sinus tachycardia Cannot rule out Inferior infarct , age undetermined Abnormal ECG Nonspecific ST and T wave abnormality Confirmed by Jacinto Kidd ([id number]), technical writer and editor [place] ([id number]) on 11/29/2025 9:59:47 AM Referred By: RANULFO Confirmed By: Jacinto Kidd
[2025-11-27 19:57] VITALS: BP 140/98; PULSE 135; RESP 22; O2SAT 97
[2025-11-27 20:15] VITALS: BP 138/96; PULSE 124; RESP 28; O2SAT 95
--- OUTSIDE RECORDS SUMMARY | 2025-11-27 20:19 | XMS RPT_ITS | CCD ---
Author Organization [facility] DUMP MOTORMAN [facility] Care Team Providers Care Journeyman Welder Name Role Phone MARION RICE Attending Unavailable [...] Elizabeth Argueta DO Primary Care Provider [phone] Dr. Ari Walls DO Referring Provider [phone] [...] CE WOOD Attending Unavailable Boni ALANIS, Shelly Navarrtee Primary Care Provider [phone] Scott Santamaria MD Unavailable Joycelyn Ariza MD Unavailable PROVIDER, UNKNOWN Admitting Unavailable PROVIDER, UNKNOWN Attending Unavailable Generic Provider , No Assigned Pcp Primary Car e Provider Unavailable Shelly Izquierdo MD Primary Care Provider [phone] Unavailable Primary Care Provider Unavailabl e Carmen Hughes MD Primary Care Provider JESSIE MCCLENDON Admitting Unavailable JESSIE MCCLENDON Attending Unavailable JESSIE MCCLENDON Consulting Unavailable SCOTT SANTAMARIA Attending Unavailable [facility] Primary Care Unavailable SIGNS, HARDIK Attending Unavailable NOLKER, SCOTT Referring Unavailable [facility]ZQUIERDO, [facility] Primary Care Unavailable JACQUELYN MUSTAFA Attending Unavailable NOLKER, SCOTT Attending Unavailable NOLKER, SCOTT Referring Unavailable NOLKER, SCOTT Attending Unavailable NOLKER, SCOTT Referring Unavailable NOLKER, SCOTT Attending Unavailable NOLKER, SCOTT Referring Unavailable IZQUIERDO, [facility] Primary Care Unavailable NOLKER, SCOTT Attending Unavailable NOLKER, SCOTT Referring Unavailable IZQUIERDO, [facility] Primary Care Unavailable SIGNS, HARDIK Attending Unavailable SIGNS, HARDIK Referring Unavailable IZQUIERDO, [facility] Primary Care Unavailable NOLKER, SCOTT Attending Unavailable IZQUIERDO, [facility] Primary Care Unavailable NOLKER, SCOTT Attending Unavailable NOLKER, SCOTT Referring Unavailable IZQUIERDO, [facility] Primary Care Unavailable JOYCELYN ARIZA Attending Unavailable NOLKER, SCOTT Referring Unavailable IZQUIERDO, [facility] Primary Care Unavailable JOYCELYN NELSON Attending Unavailable JOHAN FAUST Attending Unavailable MARCOS GARCIA Referring Unavailable Generic Provider , No Assigned Pcp Primary Car e Provider Unavailable MITRA MENDOZA Attending Unavail able NO, PHYSICIAN Primary Care Unavailable Suman ALANIS [facility] Primary Care Provider Scott Cuellar Primary Care Provider KOBI SHORT Attending Unavailable CARMEN HUGHES Attending Unavailable PRINCE GEORGE Primary Care Unavailab JOY Herman Attending Unavailable SUMAN JOY Primary Care Unavailable CHLOÉ RUGGIERO Attending Unavailable GENERIC PROVIDER, NO ASSIGNED PCP Primary Care Unavailable CARMEN HUGHES Primary Care Unavailable GARTH AGUILAR Attending Unavailable JOY WILL Primary Care Unavailable GAYE FORD Attending Unavailable GAYE FORD Referring Unavailable CYRSSCOTT PARDO Primary Care Unavailable ROBERTO CHE Referring Unavailable NOSCOTT PARDO Primary Care Unavailable CITLALI FLETCHER Attending Unavailable ROBERTO CHE Referring Unavailable NOLSCOTT PARDO Primary Care Unavailable ROBERTCarlos EnriqueROMY Referring Unavailable NOLSCOTT PARDO [facility] Care Unavailable CHEROBERTO Attending Unavailable NOSCOTT PARDO [facility] Care Unavailable CITLALI FLETCHER Attending Unavailable ROBERTO CHE Referring Unavailable NOSCOTT PARDO Primary Care Unavailable NODAMIR, SCOTT Primary Care Unavailable SELF, SELF Referring Unavailable GAYE FORD Attending Unavailable Allergies Allergy Classification Reported Allergen(s) Allergy Type Date of Onset Reaction(s) Facility (20 sources) Iodine; Translations: [iodine] Drug Allergy 4 Rash [facility] Work Phone: (20 sources) Shellfish; Translations: [shellfish derived] Drug Allergy 9 Other: See Comments [facility] (1 source) Shellfish Food allergy Anaphylactic reaction [facility] (1 source) Iodine Drug Allergy 5 [facility] Repository (20 sources) Iodinated Contrast Media Propensity to adverse reactions 5 [facility] (20 sources) Sulfonamides (Antibiotic); Translations: [SULFA ANTIBIOTICS] Propensity to adverse reactions to drug 5 [facility] (7 sources) Shellfish; Translations: [SHELLFISH CONTAINING PRODUCTS] Drug Allergy 5 Anaphylaxis [facility] Work Phone: (13 sources) Shellfish-Derive d Products Propensity to adverse reactions 7 Anaphylaxis [facility] (2 sources) Shellfish Protein-Containi ng Drug Products Propensity to adverse reactions 7 [facility] (3 sources) Sulfonamides (Antibiotic); Translations: [SULFA (SULFONAMIDE ANTIBIOTICS)] Propensity to adverse reactions to drug (disorder) 5 [facility] Repository (1 source) CT: IODINATED CONTRAST- ORAL AND IV DYE; Translations: [CT: IODINATED CONTRAST- ORAL AND IV DYE] Propensity to adverse reactions to drug (disorder) 5 [facility] Repository (1 source) Iodine I 131 Tositumomab Propensity to adverse reactions to drug 7 Anaphylaxis [facility] Medications Current Medications Medication Drug Class(es) Dates [...] TIMES A DAY March 19, 2025 12:00am Sumpter (Nk) (2 sources) Start: 11-28-2024 Sumpter (Nk) Active November 28, 2024 1:00am Nystatin (11 sources) Polyene Antifungal Start: 07-18-2025 NYSTATIN PO Take by mouth daily. Rinse 07/18/2025 Active Start: 07-14-2025 End: 07-24-2025 take 1 mL by mouth four times daily nystatin (Mycostatin) 577019 UNIT/ML suspension Take 1 mL (100,000 Units) [...] oral solution (4 sources) alpha-Adrenergic Agonist, Uncompetitive M-tvvmyo-O-aspartat e Receptor Antagonist, Sigma-1 Agonist Start: 11-13-2022 [...] Comment on above: Take 1 capsule by [facility] once daily. pantoprazole 40 mg [...] 07/11/2025 Discontinued (Therapy completed) polyethylene glycol 3350 434972 mg / potassium chloride 2970 mg / sodium bicarbonate 6740 mg / sodium chloride 5860 mg / sodium sulfate 33715 mg powder for oral solution (8 sources) [...] PROTEINon CRP [Mass/Vol] 3.83 mg/L Normal <10.00 [facility] Comment on above: Performed By: #### C RP #### [facility] (DEFAULT) [address] [place] [address] D-DIMER,QUANTITATIVEon 10-12 D-Dimer, High Sensitivity <0.27 Normal <0.50 [facility] Comment on above: Result Comment: Spec imen integrity checked. The D-Dimer assay is intended for use in conjuction with a clinical pretest probability (PTP) assessment model to exclude pulmonary embolism (PE) and as an aid in the diagnosis of Deep Vein Thrombosis (DVT) in outpatients suspected of PE or DVT. For the assay in use at [facility] ([facility]), a cutoff of <0.50 mcg/mL has a Negative Predictive Value of 99.7% for exclusion of DVT in low and moderate PTP patients. Performed By: #### C RP #### [facility] (DEFAULT) [address] [address] SEDIMENTATION RATE, AUTOMATE Don 10-12-2025 ESR Westergren 2 mm/hr Normal <15 [facility] Comment on above: Performed By: #### E SR #### [facility] (DEFAULT) [address] [place] [address] NT-PRO B-TYPE NATRIURETIC PE PTIDEon 10-06-2025 Interpretation and review of laboratory results Normal [facility] Natriuretic peptide.B prohormone N-Terminal IA [Mass/Vol] 78 pg/mL NINF - 79 pg/mL [facility] Portable XR Chest Viewson IMPRESSION: No evidence [...] IMPRESSION IMPRESSION: No evidence of acute disease. [facility] Radiology Study observation (narrative) [facility] Portable XR Chest ViewsOrder ed By: Marcelino Han on 10-06-2025 [facility] Work Phone: TSH W/FT4 REFLEXon Interpretation and review of laboratory results Normal [facility] TSH Qn 2.637 m[IU]/L [facility] XR CHEST 1 VIEW PORTABLEon 1 12-06-2024 [...] IMPRESSION: No evidence of acute disease. Normal [facility] CALCIUMon 10-05-2025 Calcium [Mass/Vol] 9.2 mg/dL 8.6 - 10. 5 mg/dL [facility] Calcium [Mass/Vol] 9.2 mg/dL Normal 8.6-10.5 [facility] Comment on above: Performed By: #### C HM7, IPB, LABHSTI1, TSHQR, CA, YNTBNP, MGO #### [facility] (DEFAULT) [address] [place] [address] CBC AND ELECTRONIC DIFFon Basophils (Bld) [#/Vol] 0.05 10*3/uL 0.00 - 0.09 K/uL [facility] Basophils/100 WBC (Bld) 0.5 % [facility] Differential cell count method Nom (Bld) Electronic Differential O [facility] Eosinophils (Bld) [#/Vol] 0.15 10*3/uL 0.00 - 0.48 K/uL [facility] Eosinophils/100 WBC (Bld) 1.6 % [facility] Erythrocyte distribution width (RBC) [Ratio] 12.3 % 10.9 - 14.3 % [facility] Hematocrit (Bld) [Volume fraction] 47.2 % 39.6 - 48.8 % [facility] Hemoglobin (Bld) [Mass/Vol] 16.6 g/dL 13.4 - 16.8 g/dL [facility] Immature granulocytes (Bld) [#/Vol] K/uL NINF - 0.07 K/uL [facility] Immature granulocytes/100 WBC (Bld) 0.3 % [facility] Lymphocytes (Bld) [#/Vol] 2.66 10*3/uL 0.83 - 3.57 K/uL [facility] Lymphocytes/100 WBC (Bld) 28.7 % [facility] MCH (RBC) [Entitic mass] 31.3 pg 26.1 - 33.3 pg [facility] MCHC (RBC) [Mass/Vol] 35.2 g/dL 31.9 - 36.5 g/dL [facility] MCV (RBC) [Entitic vol] 88.9 fL 79.0 - 94.5 fL [facility] Monocytes (Bld) [#/Vol] 0.75 10*3/uL 0.24 - 0.93 K/uL [facility] Monocytes/100 WBC (Bld) 8.1 % [facility] Neutrophils (Bld) [#/Vol] 5.64 10*3/uL 1.57 - 6.19 K/uL [facility] Nucleated RBC/100 WBC (Bld) [Ratio] 0.0 % NINF [facility] Platelet mean volume (Bld) [Entitic vol] 10.5 fL 8.7 - 12.3 fL [facility] Platelets (Bld) [#/Vol] 217 10*3/uL 146 - 337 K/uL [facility] RBC (Bld) [#/Vol] 5.31 10*6/uL [facility] Segmented neutrophils/100 WBC (Bld) 60.8 % [facility] WBC (Bld) [#/Vol] 9.28 10*3/uL 3.73 - 10.10 K/uL [facility] Basophils (Bld) [#/Vol] 0.05 10*3/uL Normal 0.00-0.09 [facility] Comment on above: Performed By: #### C RP #### [facility] (DEFAULT) [address] [address] Basophils/100 WBC (Bld) 0.5 % Normal [facility] Comment on above: Performed By: #### C RP #### [facility] (DEFAULT) [address] [address] DIFF STATUS Electronic Differential Normal [facility] Comment on above: Performed By: #### C RP #### [facility] (DEFAULT) [address] [place] [address] Eosinophils (Bld) [#/Vol] 0.15 10*3/uL Normal 0.00-0.48 [facility] Comment on above: Performed By: #### C RP #### [facility] (DEFAULT) [address] [place] [address] Eosinophils/100 WBC (Bld) 1.6 % Normal [facility] Comment on above: Performed By: #### C RP #### [facility] (DEFAULT) [address] [place] [address] Hematocrit (Bld) [Volume fraction] 47.2 % Normal 39.6-48.8 [facility] Comment on above: Performed By: #### C RP #### [facility] (DEFAULT) [address] [place] [address] Hemoglobin (Bld) [Mass/Vol] 16.6 g/dL Normal 13.4-16.8 [facility] Comment on above: Performed By: #### C RP #### [facility] (DEFAULT) [address] [place] [address] Immature Grans % 0.3 % Normal [facility] Comment on above: Performed By: #### C RP #### [facility] (DEFAULT) [address] [place] [address] Immature Grans Absolute < Normal <=0.07 [facility] Comment on above: Performed By: #### C RP #### [facility] (DEFAULT) [address] [place] [address] Lymphocytes (Bld) [#/Vol] 2.66 10*3/uL Normal 0.83-3.57 [facility] Comment on above: Performed By: #### C RP #### [facility] (DEFAULT) [address] [place] [address] Lymphocytes/100 WBC (Bld) 28.7 % Normal [facility] Comment on above: Performed By: #### C RP #### [facility] (DEFAULT) [address] [address] MCV (RBC) [Entitic vol] 88.9 fL Normal 79.0-94.5 [facility] Comment on above: Performed By: #### C RP #### [facility] (DEFAULT) [address] [place] [address] Mean Cell Hgb 31.3 pg Normal 26.1-33.3 [facility] Comment on above: Performed By: #### C RP #### [facility] (DEFAULT) [address] [address] Mean Cell Hgb Conc 35.2 g/dL Normal 31.9-36.5 [facility] Comment on above: Performed By: #### C RP #### [facility] (DEFAULT) [address] [address] Monocytes (Bld) [#/Vol] 0.75 10*3/uL Normal 0.24-0.93 [facility] Comment on above: Performed By: #### C RP #### [facility] (DEFAULT) [address] [address] Monocytes/100 WBC (Bld) 8.1 % Normal [facility] Comment on above: Performed By: #### C RP #### [facility] (DEFAULT) [address] [address] Nucleated RBC 0.0 /100 WBC Normal <=0.2 [facility] Comment on above: Performed By: #### C RP #### [facility] (DEFAULT) [address] [address] Platelet mean volume (Bld) [Entitic vol] 10.5 fL Normal 8.7-12.3 [facility] Comment on above: Performed By: #### C RP #### [facility] (DEFAULT) [address] [place] [address] Platelets (Bld) [#/Vol] 217 10*3/uL Normal 146-337 [facility] Comment on above: Performed By: #### C RP #### [facility] (DEFAULT) [address] [place] [address] RBC (Bld) [#/Vol] 5.31 10*6/uL Normal 4.38-5.83 [facility] Comment on above: Performed By: #### C RP #### [facility] (DEFAULT) [address] [place] [address] RBC Distribution 12.3 % Normal 10.9-14.3 [facility] Comment on above: Performed By: #### C RP #### [facility] (DEFAULT) [address] [place] [address] Segs + Bands Auto 60.8 % Normal [facility] Comment on above: Performed By: #### C RP #### [facility] (DEFAULT) [address] [place] [address] Segs + Bands,Absolute Auto 5.64 K/uL Normal 1.57-6.19 [facility] Comment on above: Performed By: #### C RP #### [facility] (DEFAULT) [address] [place] [address] WBC (Bld) [#/Vol] 9.28 10*3/uL Normal 3.73-10.10 [facility] Comment on above: Performed By: #### C RP #### [facility] (DEFAULT) [address] [place] [address] CHEM 7 (LYTES,BUN,CREA,GLUC) on 10-05-2025 Anion gap [Moles/Vol] 12 mmol/L 7 - 17 mmol/L [facility] Chloride [Moles/Vol] 107 mmol/L 98 - 10 8 mmol/L [facility] CO2 [Moles/Vol] 24 mmol/L 21 - 31 mmol/L [facility] Creatinine [Mass/Vol] 0.69 mg/dL Low 0.70 - 1.30 mg/dL [facility] eGFR, CKD-EPI, Male - PINF [facility] Comment on above: Reported eGFR is bas ed on the CKD-EPI 2020 equation using creatinine, age, and sex. Glucose [Mass/Vol] 106 mg/dL 70 - 179 mg/dL [facility] Interpretation and review of laboratory results Abnormal [facility] Osmolality Calc [Osmolality] 291 [facility] Potassium [Moles/Vol] 3.7 mmol/L 3.5 - 5.0 mmol/L [facility] Sodium [Moles/Vol] 139 mmol/L 135 - 145 mmol/L [facility] Urea nitrogen [Mass/Vol] 13 mg/dL 7 - 25 mg/dL [facility] Urea nitrogen/Creatinine [Mass ratio] 19 mg/mg [facility] Anion gap [Moles/Vol] 12 mmol/L Normal 7-17 [facility] Comment on above: Performed By: #### C HM7, IPB, LABHSTI1, TSHQR, CA, YNTBNP, MGO #### [facility] (DEFAULT) [address] [place] [address] Chloride [Moles/Vol] 107 mmol/L Normal 98-108 [facility] Comment on above: Performed By: #### C HM7, IPB, LABHSTI1, TSHQR, CA, YNTBNP, MGO #### [facility] (DEFAULT) [address] [place] [address] CO2 [Moles/Vol] 24 mmol/L Normal 21-31 [facility] Comment on above: Performed By: #### C HM7, IPB, LABHSTI1, TSHQR, CA, YNTBNP, MGO #### [facility] (DEFAULT) [address] [place] [address] Creatinine [Mass/Vol] 0.69 mg/dL Low 0.70-1.30 [facility] Comment on above: Performed By: #### C HM7, IPB, LABHSTI1, TSHQR, CA, YNTBNP, MGO #### [facility] (DEFAULT) [address] [place] [address] eGFR, CKD-EPI, Male > Normal >=60 [facility] Comment on above: Result Comment: Repo rted eGFR is based on the CKD-EPI 2020 equation using creatinine, age, and sex. Performed By: #### C HM7, IPB, LABHSTI1, TSHQR, CA, YNTBNP, MGO #### [facility] (DEFAULT) [address] [place] [address] Glucose [Mass/Vol] 106 mg/dL Normal Nonfastin -179 mg/dL; Fastin-99 [facility] Comment on above: Performed By: #### Kathy HM7, IPB, LABHSTI1, TSHQR, CA, YNTBNP, MGO #### [facility] (DEFAULT) [address] [place] [address] Osmolality [Osmolality] 291 mosm/kg Normal 278-305 [facility] Comment on above: Performed By: #### Kathy HM7, IPB, LABHSTI1, TSHQR, CA, YNTBNP, MGO #### [facility] (DEFAULT) [address] [place] [address] Potassium [Moles/Vol] 3.7 mmol/L Normal 3.5-5.0 [facility] Comment on above: Performed By: #### C HM7, IPB, LABHSTI1, TSHQR, CA, YNTBNP, MGO #### [facility] (DEFAULT) [address] [place] [address]11 Sodium [Moles/Vol] 139 mmol/L Normal 135-145 [facility] Comment on above: Performed By: #### C HM7, IPB, LABHSTI1, TSHQR, CA, YNTBNP, MGO #### [facility] (DEFAULT) [address] [place] [address] Urea nitrogen [Mass/Vol] 13 mg/dL Normal 7-25 [facility] Comment on above: Performed By: #### C HM7, IPB, LABHSTI1, TSHQR, CA, YNTBNP, MGO #### [facility] (DEFAULT) [address] [place] [address] Urea nitrogen/Creatinine [Mass ratio] 19 mg/mg Normal [facility] Comment on above: Performed By: #### C HM7, IPB, LABHSTI1, TSHQR, CA, YNTBNP, MGO #### [facility] (DEFAULT) [address] [place] [address] HIGH SENSITIVITY TROPONIN I - SINGLE ORDERon 10-05-2025 Interpretation and review of laboratory results Normal [facility] Troponin I.cardiac High sensitivity method [Mass/Vol] 4 ng/L NINF - 53 ng/L [facility] hs-Troponin I 4 ng/L Normal <53 [facility] Comment on above: Order Comment: Acute Coronary Syndrome (ACS): Initial Evaluation and Management: [email or web address]#[email or web address] Performed By: #### C HM7, IPB, LABHSTI1, TSHQR, CA, YNTBNP, MGO #### [facility] (DEFAULT) [address] [place] [address] MAGNESIUMon 10-05-2025 Magnesium [Mass/Vol] 1.9 mg/dL 1.6 - 2 .6 mg/dL [facility] Magnesium [Mass/Vol] 1.9 mg/dL Normal 1.6-2.6 [facility] Comment on above: Performed By: #### C HM7, IPB, LABHSTI1, TSHQR, CA, YNTBNP, MGO #### [facility] (DEFAULT) [address] [place] [address] NT-PRO B-TYPE NATRIURETIC PE PTIDEon 10-05-2025 Natriuretic peptide B (Bld) [Mass/Vol] 78 pg/mL Normal <79 [facility] Comment on above: Performed By: #### Kathy HM7, IPB, LABHSTI1, TSHQR, CA, YNTBNP, MGO #### [facility] (DEFAULT) [address] [place] [address]689 No Panel Informationon 10-05 [facility] Interpretation and review of laboratory results Normal [facility] PHOSPHATE, INORGANICon 10-05 Phosphate [Mass/Vol] 3.4 mg/dL 2.2 - 4 .6 mg/dL [facility] Phosphorous 3.4 mg/dL Normal 2.2-4.6 [facility] Comment on above: Performed By: #### C HM7, IPB, LABHSTI1, TSHQR, CA, YNTBNP, MGO #### [facility] (DEFAULT) [address] [place] [address] TSH W/FT4 REFLEXon 5 TSH 2.637 uIU/mL Normal 0.550-4.780 [facility] Comment on above: Performed By: #### Kathy HM7, IPB, LABHSTI1, TSHQR, CA, YNTBNP, MGO #### [facility] (DEFAULT) [address] [place] [address] 54869 Basic metabolic 2000 panelon 09-29-2025 Anion gap [Moles/Vol] 10 mmol/L 10 - 2 0 mmol/L [facility] Calcium [Mass/Vol] 9.2 mg/dL 8.6 - 10. 3 mg/dL [facility] Chloride [Moles/Vol] 107 mmol/L 98 - 10 7 mmol/L [facility] CO2 [Moles/Vol] 26 mmol/L 21 - 32 mmol/L [facility] Comment on above: Bicarbonate results may be falsely elevated when Lactate Dehydrogenase (LDH) concentrations exceed 2,000 U/L due to a temporary reagent manufacturing issue. If significantly elevated LDH levels are suspected, interpret bicarbonate results with caution, correlate with the patient s clinical status, and consider confirming CO2 values using a blood gas analyzer. Creatinine [Mass/Vol] 0.69 mg/dL 0.50 - 1.30 mg/dL [facility] eGFR - PINF [facility] Comment on above: Calculations of ellis mated GFR are performed using the 2020 CKD-EPI Study Refit equation without the race variable for the IDMS-Traceable creatinine methods. https://jasn.asnjournals.org/content/early/ASN.03097 39699 Glucose [Mass/Vol] 97 mg/dL 74 - 99 mg/dL [facility] Interpretation and review of laboratory results Normal [facility] Potassium [Moles/Vol] 4.0 mmol/L 3.5 - 5.3 mmol/L [facility] Sodium [Moles/Vol] 139 mmol/L 136 - 145 mmol/L [facility] Urea nitrogen [Mass/Vol] 9 mg/dL 6 - 23 mg/dL [facility] Anion gap [Moles/Vol] 10 mmol/L Normal 10-20 [facility] Comment on above: Performed By: #### 2 4321-2 #### BRIAN SHARMA ([id number]) [facility] ([facility]) [address] [place] [address] Calcium [Mass/Vol] 9.2 mg/dL Normal 8.6-10.3 [facility] Comment on above: Performed By: #### 2 4321-2 #### BRIAN SHARMA ([id number]) [facility] ([facility]) [facility] [place] [address] Chloride [Moles/Vol] 107 mmol/L Normal 98-107 [facility] Comment on above: Performed By: #### 2 4321-2 #### BRIAN SHARMA ([id number]) [facility] ([facility]) [address] [place] [address]999 CO2 [Moles/Vol] 26 mmol/L Normal 21-32 [facility] Comment on above: Result Comment: Bica rbonate results may be falsely elevated when Lactate Dehydrogenase (LDH) concentrations exceed 2,000 U/L due to a temporary reagent manufacturing issue. If significantly elevated LDH levels are suspected, interpret bicarbonate results with caution, correlate with the patient's clinical status, and consider confirming CO2 values using a blood gas analyzer. Performed By: #### 2 4321-2 #### BRIAN SHARMA ([id number]) [facility] ([facility]) [address] [place] [address] Creatinine [Mass/Vol] 0.69 mg/dL Normal 0.50-1.30 [facility] Comment on above: Performed By: #### 2 4321-2 #### BRIAN SHARMA ([id number]) [facility] ([facility]) [address] [place] [address]462 Glomerular filtration rate >90 Normal >60 [facility] Comment on above: Result Comment: Calc ulations of estimated GFR are performed using the 2020 CKD-EPI Study Refit equation without the race variable for the IDMS-Traceable creatinine methods. https://jasn.asnjournals.org/content/early//ASN.57183 08999 Performed By: #### 2 4321-2 #### BRIAN SAHRMA ([id number]) [facility] ([facility]) [address] [place] [address] Glucose [Mass/Vol] 97 mg/dL Normal 74-99 [facility] Comment on above: Performed By: #### 2 4321-2 #### BRIAN SHARMA ([id number]) [facility] ([facility]) [address] [place] [address] 16669 Potassium [Moles/Vol] 4.0 mmol/L Normal 3.5-5.3 [facility] Comment on above: Performed By: #### 2 4321-2 #### BRIAN SHARMA ([id number]) [facility] ([facility]) [address] [place] [address] Sodium [Moles/Vol] 139 mmol/L Normal 136-145 [facility] Comment on above: Performed By: #### 2 4321-2 #### BRIAN SHARMA ([id number]) [facility] ([facility]) [address] [place] [address] Urea nitrogen [Mass/Vol] 9 mg/dL Normal 6-23 [facility] Comment on above: Performed By: #### 2 4321-2 #### BRIAN SHARMA ([id number]) [facility] ([facility]) [address] [place] [address] 21674 CBC W Auto Differential pane l (Bld)on 09-29-2025 Basophils (Bld) [#/Vol] 0.04 10*3/uL [facility] Basophils/100 WBC (Bld) 0.4 % 0.0 - 2.0 % [facility] Eosinophils (Bld) [#/Vol] 0.05 10*3/uL [facility] Eosinophils/100 WBC (Bld) 0.5 % 0.0 - 6.0 % [facility] Erythrocyte distribution width (RBC) [Ratio] 12.1 % 11.5 - 14.5 % [facility] Hematocrit (Bld) [Volume fraction] 46.0 % 41.0 - 52.0 % [facility] Hemoglobin (Bld) [Mass/Vol] 16.0 g/dL 13.5 - 17.5 g/dL [facility] Immature granulocytes (Bld) [#/Vol] 0.03 10*3/uL [facility] Immature granulocytes/100 WBC (Bld) 0.3 % 0.0 - 0.9 % [facility] Comment on above: Immature Granulocyte Count (IG) includes promyelocytes, myelocytes and metamyelocytes but does not include bands. Percent differential counts (%) should be interpreted in the context of the absolute cell counts (cells/UL). Lymphocytes (Bld) [#/Vol] 1.83 10*3/uL [facility] Lymphocytes/100 WBC (Bld) 19.8 % 13.0 - 44.0 % [facility] MCH (RBC) [Entitic mass] 31.4 pg 26.0 - 34.0 pg [facility] MCHC (RBC) [Mass/Vol] 34.8 g/dL 32.0 - 36.0 g/dL [facility] MCV (RBC) [Entitic vol] 90 fL 80 - 100 fL [facility] Monocytes (Bld) [#/Vol] 0.64 10*3/uL [facility] Monocytes/100 WBC (Bld) 6.9 % 2.0 - 10.0 % [facility] Neutrophils (Bld) [#/Vol] 6.65 10*3/uL [facility] Comment on above: Percent differential counts (%) should be interpreted in the context of the absolute cell counts (cells/uL). Neutrophils/100 WBC (Bld) 72.1 % 40.0 - 80.0 % [facility] Nucleated RBC/100 WBC (Bld) [Ratio] 0.0 % [facility] Platelets (Bld) [#/Vol] 197 10*3/uL [facility] RBC (Bld) [#/Vol] 5.09 10*6/uL [facility] WBC (Bld) [#/Vol] 9.2 10*3/uL [facility] Basophils (Bld) [#/Vol] 0.04 x10*3/uL Normal 0.00-0.10 [facility] Comment on above: Performed By: #### 5 7021-8 #### BRIAN SHARMA ([id number]) [facility] ([facility]) [address] [place] [address] 92821 Basophils/100 WBC (Bld) 0.4 % Normal 0.0-2.0 [facility] Comment on above: Performed By: #### 5 7021-8 #### BRIAN SHARMA ([id number]) [facility] ([facility]) [address] [place] [address] 87879 Eosinophils (Bld) [#/Vol] 0.05 x10*3/uL Normal 0.00-0.70 [facility] Comment on above: Performed By: #### 5 7021-8 #### BRIAN SHARMA ([id number]) [facility] ([facility]) [address] [place] [address] 81545 Eosinophils/100 WBC (Bld) 0.5 % Normal 0.0-6.0 [facility] Comment on above: Performed By: #### 5 7021-8 #### BRIAN SHARMA ([id number]) [facility] ([facility]) [address] [place] [address] 14961 Erythrocyte distribution width (RBC) [Ratio] 12.1 % Normal 11.5-14.5 [facility] Comment on above: Performed By: #### 5 7021-8 #### BRIAN SHARMA ([id number]) [facility] ([facility]) [address] [place] [address] 73760 Hematocrit (Bld) [Volume fraction] 46.0 % Normal 41.0-52.0 [facility] Comment on above: Performed By: #### 5 7021-8 #### BRIAN SHARMA ([id number]) [facility] ([facility]) [address] [place] [address] 93347 Hemoglobin (Bld) [Mass/Vol] 16.0 g/dL Normal 13.5-17.5 [facility] Comment on above: Performed By: #### 5 7021-8 #### BRIAN SHARMA ([id number]) [facility] ([facility]) [address] [place] [address] 87718 Immature granulocytes (Bld) [#/Vol] 0.03 x10*3/uL Normal 0.00-0.70 [facility] Comment on above: Performed By: #### 5 7021-8 #### BRIAN SHARMA ([id number]) [facility] ([facility]) [address] [place] [address] 14271 Immature granulocytes/100 WBC (Bld) 0.3 % Normal 0.0-0.9 [facility] Comment on above: Result Comment: Patti ture Granulocyte Count (IG) includes promyelocytes, myelocytes and metamyelocytes but does not include bands. Percent differential counts (%) should be interpreted in the context of the absolute cell counts (cells/UL). Performed By: #### 5 7021-8 #### BRIAN SHARMA ([id number]) [facility] ([facility]) [address] [place] [address] Lymphocytes (Bld) [#/Vol] 1.83 x10*3/uL Normal 1.20-4.80 [facility] Comment on above: Performed By: #### 5 7021-8 #### BRIAN SHARMA ([id number]) [facility] ([facility]) [address] [place] [address] Lymphocytes/100 WBC (Bld) 19.8 % Normal 13.0-44.0 [facility] Comment on above: Performed By: #### 5 7021-8 #### BRIAN SHARMA ([id number]) [facility] ([facility]) [address] [place] [address] MCH (RBC) [Entitic mass] 31.4 pg Normal 26.0-34.0 [facility] Comment on above: Performed By: #### 5 7021-8 #### BRIAN SHARMA ([id number]) [facility] ([facility]) [address] [place] [address] 49072 MCHC (RBC) [Mass/Vol] 34.8 g/dL Normal 32.0-36.0 [facility] Comment on above: Performed By: #### 5 7021-8 #### BRIAN SHARMA ([id number]) [facility] ([facility]) [address] [place] [address] 44694 MCV (RBC) [Entitic vol] 90 fL Normal 80-100 [facility] Comment on above: Performed By: #### 5 7021-8 #### BRIAN SHARMA ([id number]) [facility] ([facility]) [address] [place] [address] 67053 Monocytes (Bld) [#/Vol] 0.64 x10*3/uL Normal 0.10-1.00 [facility] Comment on above: Performed By: #### 5 7021-8 #### BRIAN SHARMA ([id number]) [facility] ([facility]) [address] [place] [address] Monocytes/100 WBC (Bld) 6.9 % Normal 2.0-10.0 [facility] Comment on above: Performed By: #### 5 7021-8 #### BRIAN SHARMA ([id number]) [facility] ([facility]) [address] [place] [address] 74172 Neutrophils (Bld) [#/Vol] 6.65 x10*3/uL Normal 1.20-7.70 [facility] Comment on above: Result Comment: Perc ent differential counts (%) should be interpreted in the context of the absolute cell counts (cells/uL). Performed By: #### 5 7021-8 #### BRIAN SHARMA ([id number]) [facility] ([facility]) [address] [place] [address] 59390 Neutrophils/100 WBC (Bld) 72.1 % Normal 40.0-80.0 [facility] Comment on above: Performed By: #### 5 7021-8 #### BRIAN SHARMA ([id number]) [facility] ([facility]) [address] [place] [address] 53569 Nucleated RBC/100 WBC (Bld) [Ratio] 0.0 /100 WBCs Normal 0.0-0.0 [facility] Comment on above: Performed By: #### 5 7021-8 #### BRIAN SHARMA ([id number]) [facility] ([facility]) [address] [place] [address] 90600 Platelets (Bld) [#/Vol] 197 x10*3/uL Normal 150-450 [facility] Comment on above: Performed By: #### 5 7021-8 #### BRIAN SHARMA ([id number]) [facility] ([facility]) [address] [place] [address] 36208 RBC (Bld) [#/Vol] 5.09 x10*6/uL Normal 4.50-5.90 [facility] Comment on above: Performed By: #### 5 7021-8 #### BRIAN SHARMA ([id number]) [facility] ([facility]) [address] [place] [address] WBC (Bld) [#/Vol] 9.2 x10*3/uL Normal 4.4-11.3 [facility] Comment on above: Performed By: #### 5 7021-8 #### TORRES ZACHARY ([id number]) [facility] ([facility]) [address] [place] [id number] ECG 12-LEADon 09-29-2025 ECG 12-LEAD Ventricular Rate 89 Atrial Rate 89 P-R Interval 156 QRS Duration 94 Q-T Interval 372 QTC Calculation(Bazett) 452 P Baxter 74 R Baxter 82 T Baxter 111 QRS Count 15 Q Onset 217 P Onset 139 P Offset 197 T Offset 403 QTC Fredericia 424 Diagnosis Normal sinus rhythm with sinus arrhythmia Nonspecific ST abnormality Abnormal ECG When compared with ECG of 29-SEP-2025 13:09, (unconfirmed) T wave inversion now evident in Lateral leads See ED provider note for full interpretation and clinical correlation Confirmed by Charis oSmmers ([id number]) on 10/02/2025 3:36:31 PM Normal [facility] Tropinin I.cardiac panel Hig h sensitivity methodon 09-29-2025 Interpretation and review of laboratory results Normal [facility] Less than 99th perce ntile of normal [...] performed using a different testing methodology at [facility] than at other [facility]. Direct result comparisons should only be made within the same method. [facility] Interpretation and review of laboratory results Normal [facility] Less than 99th perce ntile of normal [...] performed using a different testing methodology at [facility] than at [facility]. Direct result comparisons should only be made within the same method. [facility] Troponin I, High Sensitivity , Initialon 09-29-2025 Tropinin I.cardiac panel High sensitivity method 3 ng/L 0 - 20 ng/L [facility] Troponin I.cardiac panelon 1 Tropinin I.cardiac panel High sensitivity method 4 ng/L Normal 0-20 [facility] Comment on above: Order Comment: Less than [...] is performed using a differenttesting methodology at [facility] than at [facility]. Direct result comparisons should onlybe made within the same method. Performed By: #### 4 537-7 #### TORRES ZACHARY ([id number]) [facility] ([facility]) [address] [place] [address] Tropinin I.cardiac panel High sensitivity method 3 ng/L Normal 0-20 [facility] Comment on above: Order Comment: Less than [...] is performed using a differenttesting methodology at [facility] than at [facility]. Direct result comparisons should onlybe made within the same method. Performed By: #### 4 537-7 #### TORRES ZACHARY ([id number]) [facility] ([facility]) [address] [place] [address] Troponin, High Sensitivity, 1 Houron 09-29-2025 Tropinin I.cardiac panel High sensitivity method 4 ng/L 0 - 20 ng/L [facility] XR CHEST 1 VIEWon 09-29-2025 XR CHEST 1 VIEW Interpreted By: Jamil Capone, STUDY: XR CHEST 1 VIEW INDICATION: Signs/Symptoms:cp. COMPARISON: None ACCESSION NUMBER(S): [id number] ORDERING CLINICIAN: GARTH AGUILAR FINDINGS: No consolidation, effusion, edema, or pneumothorax. Heart size within normal limits. IMPRESSION: No evidence of acute intrathoracic abnormality. Signed by: Jamil Goode 09/29/2025 3:26 PM Dictation workstation: [id number] Normal [facility] XR Chest Single viewon 09-29 No evidence of acute intrathoracic abnormality. Signed by: Jamil Goode 09/29/2025 3:26 PM Dictation workstation: [id number] MMODAL Interpreted By: Jamil Capone, STUDY: XR CHEST 1 VIEW INDICATION: Signs/Symptoms:cp. COMPARISON: None ACCESSION NUMBER(S): [id number] ORDERING CLINICIAN: GARTH AGUILAR FINDINGS: No consolidation, effusion, edema, or pneumothorax. Heart size within normal limits. [facility] MMODAL Jamil Goode MD - 09/29/2025 Interpreted By: Jamil Goode, STUDY: XR CHEST 1 VIEW INDICATION: Signs/Symptoms:cp. COMPARISON: None ACCESSION NUMBER(S): [id number] ORDERING CLINICIAN: GARTH AGUILAR FINDINGS: No consolidation, effusion, edema, or pneumothorax. Heart size within normal limits. IMPRESSION: No evidence of acute intrathoracic abnormality. Signed by: Jamil Goode 09/29/2025 3:26 PM Dictation workstation: [id number] [facility] Work Phone: Radiology Study observation (narrative) [facility] Work Phone: XR Chest Single viewOrdered By: Jamil Goode on 09-29-2025 [facility] Work Phone: CNOVon 09-27-2025 CNOV Office Visit (PERVMN ) ----- CE BAER II ([id number]) 1985 M Date Time Provider Department 09/27/25 12:15 PM JOHAN FAUST During your visit today, we recorded the following information about you: Pulse Blood pressure Weight Height 58/minute 147/88 104.9 kg 1.753 m Johan Faust MD 09/27/2025 1:37 PM Signed [facility] Department of Cardiovascular Medicine SECTION [...] and trunk. He also describes veins that bulge intermittently in the dorsal aspect of the [...] for foot cellulitis. _ On 03/17/25 seen [facility] ([place], [place]) ER for a pain between L [...] then resolves _ Went to ED in [place] for CP but reportedly left AMA _ Diagnosed with pneumonia in the summer 2024. 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 He left the ED as he c/o that he did not like the doctor's tone of voice and felt that he was not having symptoms addressed. MAY 2025 _ C/o rectal bleeding and [...] There is also c/o seizures due to environmental toxins. _ Prior hx of alcohol abuse and [...] such as Raynaud's, Buerger's disease, erythromelalgia, and blood clots' were mentioned to him. Allergies: is [...] use disorder (2017), History of substance abuse ([facility]) (2004), and Hypertension (07/20/2019). Past surgical history: has a past surgical history that includes colonoscopy (04/02/2022) and egd (04/02/2022). Family history: family history includes Diabetes in his father, maternal grandfather, maternal grandmother, paternal grandfather, and paternal grandmother; Hypertension in his father and sister; Liver Disease in his maternal grandmother, paternal grandfather, and paternal grandm (more content not included)... Normal [facility] ECG 12-LEADon 09-26-2025 ECG 12-LEAD Ventricular Rate 61 Atrial Rate 61 P-R Interval 158 QRS Duration 98 Q-T Interval 418 QTC Calculation(Bazett) 420 P Baxter 64 R Baxter 84 T Baxter 72 QRS Count 10 Q Onset 218 P Onset 139 P Offset 195 T Offset 427 QTC Fredericia 420 Diagnosis Normal sinus rhythm Normal ECG When compared with ECG of 18-JUL-2025 20:28, No significant change was found See ED provider note for full interpretation and clinical correlation Confirmed by Victoria García ([id number]) on 09/29/2025 2:49:27 PM Normal [facility] DNA analysis discrete [employer] ce variation panel Molgen (Bld/Tiss)on 09-23-2025 Disclaimer See Notes [facility] Comment on above: Result Comment: This test was developed and validated by [employer]. This test has not been cleared or approved by the [place] Food and Drug Administration (FDA). The [facility] laboratory is accredited by the College of [place] Pathologists (CAP) and certified under the Clinical Laboratory Improvement Amendments (CLIA #: [id number]) to perform high-complexity clinical tests. This test is used for clinical purposes. It should not be regarded as investigational use only or for research use only. Performed By: #### 5 5208-3 #### [facility] (DEFAULT) [address] [address] Genes Tested See Notes [facility] Comment on above: Result Comment: APOB , BRCA1, BRCA2, EPCAM, LDLR, LDLRAP1, PCSK9, PMS2, MLH1, MSH2, MSH6 Performed By: #### 5 5208-3 #### [facility] (DEFAULT) [address] [place] [address] GENETIC ANALYSIS REPORT [facility] Comment on above: Result Comment: [...] test. Performed By: #### 5 5208-3 #### [facility] (DEFAULT) [address] [place] [address] Genetic Diseases Assessed Normal [facility] Comment on above: Result Comment: This is a screening test and does not detect all pathogenic or likely pathogenic variant(s) in the tested genes; diagnostic testing is recommended for individuals with a personal or family history of heart disease or hereditary cancer. [facility] Tier One Population Screen is a screening [...] Performed By: #### 5 5208-3 #### [facility] (DEFAULT) [address] [place] [address] Interpretation Methods and Limitations See Notes Normal [facility] Comment on above: Result Comment: Extr acted DNA is enriched for targeted regions and then sequenced using the [employer] Exome+ (R) assay on an Illumina DNA sequencing system. Data is then aligned to a modified version of GRCh38 and all genes are analyzed using the WALTER transcript and WALTER Plus Clinical transcript, when available. Small variant calling is completed using a customized version of [employer]'s Infotrieveq software, augmented by a proprietary small variant [...] is based upon guidelines published by the [place] [employer] and Gen[employer] (ACMG), the Association for Molecular Pathology (AMP) or their modification by ClinGen Variant Curation Expert Panels when available and/or review of previous clinical assertions available in the ClinVar database. Interpretation is limited to the transcripts indicated on the report and +/- 10 bp into intronic regions, except as noted below. [place] variant classifications include pathogenic, likely pathogenic, variant [...] neoplasms.Gene Specific Notes:APOB: analysis is limited to c.87595T>A and c.90824V>T; BRCA1: sequencing analysis extends to CDS +/-20 [...] limited to exons 1-10. Roberto Perez, PhD, [email or web address] Performed By: #### 5 5208-3 #### [facility] (DEFAULT) [address] [place] [address] Overall Interpretation Normal [facility] Comment on above: Result Comment: Nega tive [...] screening.? Performed By: #### 5 5208-3 #### [facility] (DEFAULT) [address] [place] [address] Sequencing Location See Notes Normal [facility] Comment on above: Result Comment: Sequ encing done at [facility] [address] [place] [address], [address], [place] [address] (CLIA# [id number]) Performed By: #### 5 5208-3 #### [facility] (DEFAULT) [address] [place] [address] 36on 08-18-2025 36 Patient called with questions regarding his office visit with Dr. Ariza. I told him he could view his notes on [email or web address] or he could send us a record release and we could fax his note to whatever physician he would like. He also mentioned his PVR results. I told him he could obtain those from ordering physician as we did not order that particular test. Normal [facility] 08-03-2025 CNPN Telephone (DERMMN) ----- CE BAER II ([id number]) 1985 M Date Time Provider Department 08/03/25 [...] to: self Call patient at: at home [phone] (home) [phone] (cell) Payor: [facility] MEDICARE / Plan: [facility] DUAL COMPLETE HMO POS SNP / Product [...] Encounter Status:Closed by EUGENIA CHRISTIANSEN on 08/03/25 [facility] 36on 07-29-2025 36 Please explain to Mr Baer that he [...] give it a good chance of working. [facility] 07-25-2025 I am not sure who prescribed Fluconazole [...] the mouth/throat. Please call him and explain. [facility] 07-22-2025 Name of caller: Herb d (Also Heather from [facility]) Contact phone number: [phone] Relationship to Patient: patient (also [facility]) Provider: Alisa Practice: [facility] Chief Complaint/Reason for Call: Needs new referral with update. 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 Needs to state his legs, feet, and knees has swelling. His skin is blanching. Referral is going to [facility]. Brittany Marr. Best time of day caller can be reached: any Patient advised that office/PCP has 24-48 business hours to return their call: Yes [facility] 36 Received call from [facility] (pt's secondary insurance) informing that pt is requesting Dr. Anna send a referral to [facility]. Spoke w/provider's DENITA Small who verified that Dr. Anna will not be sending a referral to the new ID office as this must come from pt's PCP. [facility] that pt can fill out a SHAHLA at [facility] which would then be faxed to our office & we can then fax his [facility] records to them. Neurology Physician verbalized understanding, thanked, & said she would inform pt of the above. Normal [facility] 36on 07-21-2025 36 Message released to patient as written. Yes Patient's further questions if applicable: Transferred the patient to the office for previsit planning. Were all questions from office addressed or relayed to the patient from encounter: Yes Normal [facility] 36 Attempting to reach patient for Pre Charting. If patient returns call, please put call thru to office. Thank You Normal [facility] CBC W Auto Differential pane l (Bld)on 07-20-2025 Basophils (Bld) [#/Vol] 51 10*3/uL [facility] Basophils/100 WBC (Bld) 0.7 % [facility] Eosinophils (Bld) [#/Vol] 117 10*3/uL [facility] Eosinophils/100 WBC (Bld) 1.6 % [facility] Erythrocyte distribution width (RBC) [Ratio] 12.4 % 11.0 - 15.0 % [facility] Hematocrit (Bld) [Volume fraction] 50.9 % High 38.5 - 50.0 % [facility] Hemoglobin (Bld) [Mass/Vol] 17.2 g/dL High 13.2 - 17.1 g/dL [facility] Interpretation and review of laboratory results Abnormal [facility] Lymphocytes (Bld) [#/Vol] 1913 10*3/uL [facility] Lymphocytes/100 WBC (Bld) 26.2 % [facility] MCH (RBC) [Entitic mass] 31.5 pg 27.0 - 33.0 pg [facility] MCHC (RBC) [Mass/Vol] 33.8 g/dL 32.0 - 36.0 g/dL [facility] Comment on above: For adults, a slight decrease in the calculated MCHC value (in the range of 30 to 32 g/dL) is most likely not clinically significant; however, it should be interpreted with caution in correlation with other red cell parameters and the patient's clinical condition. MCV (RBC) [Entitic vol] 93.2 fL 80.0 - 100.0 fL [facility] Monocytes (Bld) [#/Vol] 482 10*3/uL [facility] Monocytes/100 WBC (Bld) 6.6 % [facility] Neutrophils (Bld) [#/Vol] 4738 10*3/uL [facility] Neutrophils/100 WBC (Bld) 64.9 % [facility] Platelet mean volume (Bld) [Entitic vol] 10.8 fL 7.5 - 12.5 fL [facility] Platelets (Bld) [#/Vol] 191 10*3/uL [facility] RBC (Bld) [#/Vol] 5.46 10*6/uL [facility] WBC (Bld) [#/Vol] 7.3 10*3/uL [facility] [facility] No Panel Informationon 07-20 [facility] Sedimentation rate, automate don 07-20-2025 ESR (Bld) [Velocity] 2 mm/h < OR = 15 [facility] 36on 07-19-2025 36 I called the patient and introduced myself and my role. I explained that I was calling because I received a concern regarding his care that he placed. I asked the patient to give me a little background. He states that he is unhappy with care he has received from all of [facility], not just Tho Cuellar. I explained that [...] report this to his insurance company. Normal [facility] US Lower extremity arteryon 07-19-2025 Left [...] mmHg [facility] Right WBI 1.54 [facility] Right side findings: WBI is 1.54. This [...] waveforms: normal. Normal wrist brachial index (WBI). [facility] [id number] 07-18-2025 [id number] Pt called into the o ffice wanting [...] in his blood stream. Please advise. Normal [facility] 36on 07-18-2025 36 Leadership approval for discharge from practice. Sent discharge letter via My Chart and certified mail. [facility] 36 Received call from patients mom Codie, [...] the lab and I sent those to [facility] in [place] per request. Patient is to follow up [...] understanding to what we have explained to eC. Ankita verbalized understanding and states she is just worried about her son. I reinforced education of addressing any concerns with his PCP. [facility] 36 Patient calls in ups et that [...] come back in. I explained that as medical legal investigator we cannot force people to stay in [...] what he would like to do next. [facility] CBC W Auto Differential pane l (Bld)on 07-18-2025 Basophils (Bld) [#/Vol] 0.05 10*3/uL [facility] Basophils/100 WBC (Bld) 0.6 % Normal 0.0-2.0 [facility] Comment on above: Performed By: #### 5 7021-8 #### BRIAN SHARMA ([id number]) [facility] ([facility]) [address] [place] [address] Eosinophils (Bld) [#/Vol] 0.17 10*3/uL [facility] Eosinophils/100 WBC (Bld) 2.1 % Normal 0.0-6.0 [facility] Comment on above: Performed By: #### 5 7021-8 #### BRIAN SHARMA ([id number]) [facility] ([facility]) [address] [place] [address] Erythrocyte distribution width (RBC) [Ratio] 12.0 % Normal 11.5-14.5 [facility] Comment on above: Performed By: #### 5 7021-8 #### BRIAN SHARMA ([id number]) [facility] ([facility]) [address] [place] [address] Hematocrit (Bld) [Volume fraction] 47.2 % Normal 41.0-52.0 [facility] Comment on above: Performed By: #### 5 7021-8 #### BRIAN SHARMA ([id number]) [facility] ([facility]) [address] [place], [place] [address] Hemoglobin (Bld) [Mass/Vol] 16.4 g/dL Normal 13.5-17.5 [facility] Comment on above: Performed By: #### 5 7021-8 #### BRIAN SHARMA ([id number]) [facility] ([facility]) [address] [place] [address] Immature granulocytes (Bld) [#/Vol] 0.02 10*3/uL [facility] Immature granulocytes/100 WBC (Bld) 0.2 % Normal 0.0-0.9 [facility] Comment on above: Immature Granulocyte Count (IG) [...] By: #### 5 7021-8 #### BRIAN SHARMA ([id number]) [facility] ([facility]) [address] [place] [address] Lymphocytes (Bld) [#/Vol] 2.15 10*3/uL [facility] Lymphocytes/100 WBC (Bld) 26.5 % Normal 13.0-44.0 [facility] Comment on above: Performed By: #### 5 7021-8 #### BRIAN SHARMA ([id number]) [facility] ([facility]) [address] [place] [address] MCH (RBC) [Entitic mass] 31.8 pg Normal 26.0-34.0 [facility] Comment on above: Performed By: #### 5 7021-8 #### BRIAN SHARMA ([id number]) [facility] ([facility]) [address] [place] [address] MCHC (RBC) [Mass/Vol] 34.7 g/dL Normal 32.0-36.0 [facility] Comment on above: Performed By: #### 5 7021-8 #### BRIAN SHARMA ([id number]) [facility] ([facility]) [address] [place] [address] MCV (RBC) [Entitic vol] 92 fL Normal 80-100 [facility] Comment on above: Performed By: #### 5 7021-8 #### BRIAN SHARMA ([id number]) [facility] ([facility]) [address] [place] [address] Monocytes (Bld) [#/Vol] 0.82 10*3/uL [facility] Monocytes/100 WBC (Bld) 10.1 % Normal 2.0-10.0 [facility] Comment on above: Performed By: #### 5 7021-8 #### BRIAN SHARMA ([id number]) [facility] ([facility]) [address] [place] [address]45 Neutrophils (Bld) [#/Vol] 4.89 10*3/uL [facility] Comment on above: Percent differential counts (%) should be interpreted in the context of the absolute cell counts (cells/uL). Neutrophils/100 WBC (Bld) 60.5 % Normal 40.0-80.0 [facility] Comment on above: Performed By: #### 5 7021-8 #### BRIAN SHARMA ([id number]) [facility] ([facility]) [address] [place], [place] [address] Nucleated RBC/100 WBC (Bld) [Ratio] 0.0 % [facility] Platelets (Bld) [#/Vol] 194 10*3/uL [facility] RBC (Bld) [#/Vol] 5.15 10*6/uL [facility] WBC (Bld) [#/Vol] 8.1 10*3/uL [facility] Basophils (Bld) [#/Vol] 0.05 x10*3/uL Normal 0.00-0.10 [facility] Comment on above: Performed By: #### 5 7021-8 #### BRIAN SHARMA ([id number]) [facility] ([facility]) [address] [place] [address] 17166 Eosinophils (Bld) [#/Vol] 0.17 x10*3/uL Normal 0.00-0.70 [facility] Comment on above: Performed By: #### 5 7021-8 #### BRIAN SHARMA ([id number]) [facility] ([facility]) [address] [place], [place] [address] Immature granulocytes (Bld) [#/Vol] 0.02 x10*3/uL Normal 0.00-0.70 [facility] Comment on above: Performed By: #### 5 7021-8 #### BRIAN SHARMA ([id number]) [facility] ([facility]) [address] [place] [address] Lymphocytes (Bld) [#/Vol] 2.15 x10*3/uL Normal 1.20-4.80 [facility] Comment on above: Performed By: #### 5 7021-8 #### BRIAN SHARMA ([id number]) [facility] ([facility]) [address] [place] [address] 39282 Monocytes (Bld) [#/Vol] 0.82 x10*3/uL Normal 0.10-1.00 [facility] Comment on above: Performed By: #### 5 7021-8 #### BRIAN SHARMA ([id number]) [facility] ([facility]) [address] [place] [address] 23158 Neutrophils (Bld) [#/Vol] 4.89 x10*3/uL Normal 1.20-7.70 [facility] Comment on above: Result Comment: Perc ent differential counts (%) should be interpreted in the context of the absolute cell counts (cells/uL). Performed By: #### 5 7021-8 #### BRIAN SHARMA ([id number]) [facility] ([facility]) [address] [place] [address]40 Nucleated RBC/100 WBC (Bld) [Ratio] 0.0 /100 WBCs Normal 0.0-0.0 [facility] Comment on above: Performed By: #### 5 7021-8 #### BRIAN SHARMA ([id number]) [facility] ([facility]) [address] [place] [address] 97847 Platelets (Bld) [#/Vol] 194 x10*3/uL Normal 150-450 [facility] Comment on above: Performed By: #### 5 7021-8 #### BRIAN SHARMA ([id number]) [facility] ([facility]) [address] [place] [address] 24277 RBC (Bld) [#/Vol] 5.15 x10*6/uL Normal 4.50-5.90 [facility] Comment on above: Performed By: #### 5 7021-8 #### BRIAN SHARMA ([id number]) [facility] ([facility]) [address] [place] [address] 96387 WBC (Bld) [#/Vol] 8.1 x10*3/uL Normal 4.4-11.3 [facility] Comment on above: Performed By: #### 5 7021-8 #### BRIAN SHARMA ([id number]) [facility] ([facility]) [address] [place] [address] 09444 CRP [Mass/Vol]on 07-18-2025 Interpretation and review of laboratory results Normal [facility] Comprehensive metabolic 2000 panelon 07-18-2025 Albumin BCP dye [Mass/Vol] 4.3 g/dL Normal 3.4-5.0 [facility] Comment on above: Performed By: #### 2 4323-8 #### BRIAN SHARMA ([id number]) [facility] ([facility]) [address] [place] [address] 77600 ALP [Catalytic activity/Vol] 43 U/L Normal 33-120 [facility] Comment on above: Performed By: #### 2 4323-8 #### BRIAN SHARMA ([id number]) [facility] ([facility]) [address] [place] [address] 05706 ALT With P-5'-P [Catalytic activity/Vol] 9 U/L Low 10-52 [facility] Comment on above: Patients treated wit h Sulfasalazine may generate falsely decreased results for ALT. Result Comment: Vangie ents treated with Sulfasalazine may generate falsely decreased results for ALT. Performed By: #### 2 4323-8 #### BRIAN SHARMA ([id number]) [facility] ([facility]) [address] [place] [address] 24714 Anion gap [Moles/Vol] 11 mmol/L Normal 10-20 [facility] Comment on above: Performed By: #### 2 4323-8 #### BRIAN SHARMA ([id number]) [facility] ([facility]) [address] [place] [address] 89796 AST With P-5'-P [Catalytic activity/Vol] 17 U/L Normal 9-39 [facility] Comment on above: Performed By: #### 2 4323-8 #### BRIAN SHARMA ([id number]) [facility] ([facility]) [address] [place] [address] Bilirubin [Mass/Vol] 0.4 mg/dL Normal 0.0-1.2 [facility] Comment on above: Performed By: #### 2 4323-8 #### BRIAN SHARMA ([id number]) [facility] ([facility]) [address] [place] [address] Calcium [Mass/Vol] 9.3 mg/dL Normal 8.6-10.3 [facility] Comment on above: Performed By: #### 2 4323-8 #### BRIAN SHARMA ([id number]) [facility] ([facility]) [address] [place] [address] 02571 Chloride [Moles/Vol] 105 mmol/L Normal 98-107 [facility] Comment on above: Performed By: #### 2 4323-8 #### BRIAN SHARMA ([id number]) [facility] ([facility]) [address] [place] [address] CO2 [Moles/Vol] 27 mmol/L Normal 21-32 [facility] Comment on above: Performed By: #### 2 4323-8 #### BRIAN SHARMA ([id number]) [facility] ([facility]) [facility] [place] [address] Creatinine [Mass/Vol] 0.80 mg/dL Normal 0.50-1.30 [facility] Comment on above: Performed By: #### 2 4323-8 #### BRIAN SHARMA ([id number]) [facility] ([facility]) [address] [place] [address] 62465 eGFR - PINF [facility] Comment on above: Calculations of ellis mated GFR are performed using the 2020 CKD-EPI Study Refit equation without the race variable for the IDMS-Traceable creatinine methods. https://jasn.asnjournals.org/content//ASN.76726 07535 Glucose [Mass/Vol] 98 mg/dL Normal 74-99 [facility] Comment on above: Performed By: #### 2 4323-8 #### BRIAN SHARMA ([id number]) [facility] ([facility]) [address] [place] [address] Interpretation and review of laboratory results Abnormal [facility] Potassium [Moles/Vol] 4.3 mmol/L Normal 3.5-5.3 [facility] Comment on above: Performed By: #### 2 4323-8 #### BRIAN SHARMA ([id number]) [facility] ([facility]) [address] [place] [address] Protein [Mass/Vol] 6.2 g/dL Low 6.4-8.2 [facility] Comment on above: Performed By: #### 2 4323-8 #### BRIAN SHARMA ([id number]) [facility] ([facility]) [address] [place] [address] Sodium [Moles/Vol] 139 mmol/L Normal 136-145 [facility] Comment on above: Performed By: #### 2 4323-8 #### BRIAN SHARMA ([id number]) [facility] ([facility]) [address] [place] [address] Urea nitrogen [Mass/Vol] 9 mg/dL Normal 6-23 [facility] Comment on above: Performed By: #### 2 4323-8 #### BRIAN SHARMA ([id number]) [facility] ([facility]) [address] [place] [address] Glomerular filtration rate >90 Normal >60 [facility] Comment on above: Result Comment: Calc ulations of estimated GFR are performed using the 2020 CKD-EPI Study Refit equation without the race variable for the IDMS-Traceable creatinine methods. https://jasn.asnjournals.org/content/early/ASN.61611 95374 Performed By: #### 2 4323-8 #### BRIAN SHARMA ([id number]) [facility] ([facility]) [address] [place] [address] ECG 12-LEADon 07-18-2025 ECG 12-LEAD Ventricular Rate 64 Atrial Rate 64 P-R Interval 150 QRS Duration 94 Q-T Interval 372 QTC Calculation(Bazett) 383 P Baxter 47 R Baxter 60 T Baxter 55 QRS Count 11 Q Onset 218 P Onset 143 P Offset 187 T Offset 404 QTC Fredericia 380 Diagnosis Poor data quality, interpretation may be adversely affected Normal sinus rhythm Normal ECG No previous ECGs available See ED provider note for full interpretation and clinical correlation Confirmed by Victoria García ([id number]) on 07/22/2025 3:36:50 PM Normal [facility] ESR Westergren method (Bld) [Velocity]on 07-18-2025 ESR (Bld) [Velocity] 2 mm/h Normal 0-15 [facility] Comment on above: Performed By: #### 4 537-7 #### BRIAN SHARMA ([id number]) [facility] ([facility]) [address] [place] [address] Interpretation and review of laboratory results Normal [facility] Laboratory - Chemistry and C hemistry - challengeon 07-18-2025 CRP [Mass/Vol] 0.35 mg/dL Normal <1.00 [facility] Comment on above: Performed By: #### 1 988-5 #### BRIAN SHARMA ([id number]) [facility] ([facility]) [address] [place] [address] Lactate [Moles/Vol] 0.7 mmol/L Normal 0.4-2.0 [facility] Comment on above: Order Comment: Venip uncture immediately after or during the administration of Metamizole may lead to falsely low results. Testing should be performed immediately prior to Metamizole dosing. Performed By: #### 2 524-7 #### BRIAN SHARMA ([id number]) [facility] ([facility]) [address] [place], [place] [address] Lactate [Moles/Vol]on 2024 Interpretation and review of laboratory results Normal [facility] Venipuncture immedia tely after or during the administration of Metamizole may lead to falsely low results. Testing should be performed immediately prior to Metamizole dosing. [facility] MR BRAIN W AND WO IV CONTRAS Ton 07-18-2025 MR BRAIN W AND WO IV CONTRAST Interpreted By: Margoth Wisdom, STUDY: MR BRAIN W AND WO IV CONTRAST; 07/18/2025 10:59 pm INDICATION: Signs/Symptoms:AV malformation. Low lying cerebellar tonsils reported on prior outside CT imaging. COMPARISON: None. ACCESSION NUMBER(S): [id number] ORDERING CLINICIAN: CHLOÉ RUGGIERO TECHNIQUE: Axial T2, [...] Margoth Wisdom 07/18/2025 11:12 PM Dictation workstation: [id number] [facility] MR Brain WO and W contrast I Von 07-18-2025 Slightly low lying cerebellar tonsils object 3 mm without evidence of obstructive hydrocephalus. No abnormal enhancement or the intracranial signal identified MACRO: None Signed by: Margoth Wisdom 07/18/2025 11:12 PM Dictation workstation: [id number] [facility] Interpreted By: Margoth Salinas, STUDY: MR BRAIN W AND WO IV CONTRAST; 07/18/2025 10:59 pm INDICATION: Signs/Symptoms:AV malformation. Low lying cerebellar tonsils reported on prior outside CT imaging. COMPARISON: None. ACCESSION NUMBER(S): [id number] ORDERING CLINICIAN: CHLOÉ RUGGIERO TECHNIQUE: Axial T2, [...] outside CT imaging. COMPARISON: None. ACCESSION NUMBER(S): [id number] ORDERING CLINICIAN: CHLOÉ RUGGIERO TECHNIQUE: Axial T2, [...] Margoth Wisdom 07/18/2025 11:12 PM Dictation workstation: [id number] [facility] Work Phone: Radiology Study observation (narrative) [facility] Work Phone: MR Brain WO and W contrast I VOrdered By: Margoth Wisdom on 07-18-2025 [facility] Work Phone: No Panel Informationon 07-18 [facility] Tropinin I.cardiac panel Hig h sensitivity methodon 07-18-2025 Interpretation and review of laboratory results Normal [facility] Less than 99th perce ntile of normal [...] performed using a different testing methodology at [facility] than at other [facility]. Direct result comparisons should only be made within the same method. [facility] Troponin I, High Sensitivity on 07-18-2025 Tropinin I.cardiac panel High sensitivity method ng/L 0 - 20 ng/L [facility] Troponin I.cardiac panelon 0 07-18-2025 Tropinin I.cardiac panel High sensitivity method <3 Normal 0-20 [facility] Comment on above: Order Comment: Less than [...] performed using a different testing methodology at [facility] than at other [facility]. Direct result comparisons should only be made within the same method. Performed By: #### 8 9577-1 #### TORRES ZACHARY ([id number]) [facility] ([facility]) [address] [place] [address] CT HEAD WO IV CONTRASTon CT HEAD WO IV CONTRAST Patient Name[facility] CE [facility]QUEZ [facility] 1985 [id number] Exam Date/Time: 07/16/2025 09:20 Procedure: CT HEAD [...] has head pain especially on the left mandaeism. Pt has a pressure pain and can feel his vessels at times. 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 It is all over sensitive. 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 Otherwise unremarkable noncontrast CT scan of the head. Report Dictated on Electronically Signed By: Anibal Eason MD Electronically Signed Date/Time: 07/16/2025 11:27 AM EDT [facility] Patient Name: CE BAER [facility] 1985 [id number] Exam Date/Time: 07/16/2025 09:20 Procedure: CT HEAD [...] seen. Sinuses appear well pneumatized. Unremarkable calvarium. [facility] Anibal Eason MD - 07/16/2025 Patient [...] Electronically Signed Date/Time: 07/16/2025 11:27 AM EDT [facility] Study observation (narrative) [facility] Head WO contrastOrdered B y: Anibal Eason on 07-16-2025 [facility] Work Phone: 36on 07-15-2025 36 Name of caller: Herb elias Contact phone number: [phone] Relationship to Patient: Self Provider: Practice: [facility] Chief Complaint/Reason for Call: Pt is claiming [...] hours to return their call: No Normal [facility] 36 Name of caller: Héctor savita Contact phone number: [phone] or [phone] Relationship to Patient: [facility] Provider: Dr. Izquierdo Practice: [facility] Chief Complaint/Reason for Call: Jermaine called to inform office that a PA is not required for CT scan. Best time of day caller can be reached: any Patient advised that office/PCP has 24-48 business hours to return their call: N/A Normal [facility] 36 Name of caller: Herb curt Contact phone number: [phone] Relationship to Patient: patient Provider: Alisa Practice: [...] business hours to return their call: No [facility] 36on 07-14-2025 36 Please let Mr Keyur navarrete now that he has a thrush (yeast) infection with Shayla glabrata and I recommend using Nystatin swish and swallow 4 x a day as directed, for 10 d - I want him to please call me after end of therapy to see if his thrush is improved- script sent ot his pharmacy [facility] 36 S: Patient is calling the [facility] with headaches B: Symptom onset: chronic, since May 2025 A: Patient complains of: Has had an unusual migraine for months now, endorses he'd notified Alisa [employer] at 06/22/25 [employer] visit, has previously had suspected migraines that [...] has had severe headaches before Protocols used: [id number] [facility] 36 S: Patient called [facility] regarding Symptoms/Concerns: unrelenting [...] Protocols used: No Contact or Duplicate [facility] Name of caller: Herb elias Contact phone number: [phone] Relationship to Patient: patient Provider: Dr. Izquierdo Practice: [facility] Chief Complaint/Reason for Call: Ce called in regarding his urethra urology referral. He is requesting that the referral be faxed to the [facility], Dermatology at [phone]. He stated they need pathology results, labs & clinical notes included in the fax with the referral. Please advise, thank you! Best time of day caller can be reached: any Patient advised that office/PCP has 24-48 business hours to return their call: No [facility] 36 Tho, Patient has sent photos of his feet. Thank you [place] [id number] 36 Patient has attached lab results, please review. Thank you [place] [id number] 36 Name of caller: Herb elias Contact phone number: [phone] Relationship to Patient: patient Provider: Dr. Izquierdo Practice: [facility] Chief Complaint/Reason for Call: Patient requesting referrals for Vascular Surgery and Gatroenterology to be faxed to [facility]. Patient states will send fax numbers through [email or web address]. Please advise. Best time of day caller can be reached: any Patient advised that office/PCP has 24-48 business hours to return their call: Yes [facility] Office Visiton 07-11-2025 Follow-up visit [id number] KeyurCe 1985 M Date Provider Department [place] 07/11/2025 [id number] ARIZA [facility] JUAN CARLOS None Family History Problem Relation Age of Onset Psoriasis Mother Hypertension Mother Arthritis Mother Parkinson's Disease Father Alzheimer's disease Father Epilepsy Father Diabetes type II Father Family Status - Relation Status Age at Mother Alive Father Alive Level of Service:30794 [place] OFFICE/OUTPATIENT NEW MODERATE MDM 45 MINUTES Reason for Visit and Comments: New Patient [542] - (ref Scott Cuellar [employer]) [employer] eval for mutliple complaints- poss Buerger's dz, no testing (requested ) [facility] 36on 07-08-2025 36 . [facility] 36 Name of caller: Herb Baer Relationship to patient: patient Contact phone number: [phone] Speciality referral requested for: Vascular specialist Diagnosis [...] verified insurance covers referral: Unknown Patient insurance: [facility] Medicare/Medicaid Has patient seen this specialist in the past: No Estimated time/date patient last saw the specialist: NA [facility] 36on 07-07-2025 36 Please let Mr Keyur [...] no bone infection that could be recurring. [facility] 36on 07-05-2025 36 Call from Soraya in lab, an error occurred with the lab yesterday and CBC, ESR and T Cell profile chandler to be redrawn [facility] BLOOD CULTUREon 07-04-2025 Bacteria identified Cx Nom (Bld) BLOOD CULTURE Reference No growth at 5 days ORDER COMMENTS: Blood Collection Site: Right Arm [ S = SUSCEPTIBLE R = RESISTANT I = INTERMEDIATE S-DD = Susceptible-dose dependent NS = Non-susceptible NO = No Interpretation ] Normal [facility] Comment on above: Performed By: #### L [id number] ####Sas Programmer: ALEKSANDRA CHRISTIANSON ([id number])[facility] ([facility])[address] [place] [address] Bacteria identified Cx Nom (Bld) BLOOD CULTURE Reference No growth at 5 days ORDER COMMENTS: x2 Blood Collection Site: Left Arm [ S = SUSCEPTIBLE R = RESISTANT I = INTERMEDIATE S-DD = Susceptible-dose dependent NS = Non-susceptible NO = No Interpretation ] Normal [facility] Comment on above: Performed By: #### L [id number] ####Sas Programmer: ALEKSANDRA CHRISTIANSON ([id number])[facility] ([facility])[address] [place] [address] [place] C-REACTIVE PROTEINon 025 CRP [Mass/Vol] 3.3 mg/L Normal <5.0 [facility] Comment on above: Performed By: #### L [id number], [id number] ####Sas Programmer: ALEKSANDRA CHRISTIANSON ([id number])[facility] ([facility])[address] [place] [address] [place] CRP [Mass/Vol]on 07-04-2025 Interpretation and review of laboratory results Normal [facility] ERYTHROPOIETINon 07-04-2025 ERYTHROPOIETIN 10.3 mIU/mL Normal 2.6-18.5 [facility] Comment on above: Result Comment: Test Performed by [employer], [employer] [facility], [address] [place] [address] Panchito Nolan M.D., Ph.D., Director of Laboratories , CLIA [id number] Performed By: #### L [id number] #### [employer] ([employer]) [address] [place] [address] [place] FERRITINon 07-04-2025 Ferritin [Mass/Vol] 119 ng/mL Normal 22-275 [facility] Comment on above: Result Comment: ELI R COMMENTS: Ferritin levels below 10 ng/mL have been reported as indicative of iron deficiency anemia. Performed By: #### L [id number], LAB68 ####Sas Programmer: ALEKSANDRA CHRISTIANSON ([id number])[facility])[address] [place] [address] FUNGAL CULTUREon 07-04-2025 FUNGAL CULTURE FUNGAL CULTURE (A) Reference SHAYLA GLABRATA Rare Shayla glabrata (A) This is an edited result. Previous organism was Yeast on 07/11/2025 at 1254 EDT. [ S = SUSCEPTIBLE R = RESISTANT I = INTERMEDIATE S-DD = Susceptible-dose dependent NS = Non-susceptible NO = No Interpretation ] Normal [facility] Comment on above: Performed By: #### L [id number] #### Sas Programmer: ALEKSANDRA CHRISTIANSON ([id number]) [facility] ([facility]) [address] [place] [address] Ferritin [Mass/Vol]on 2024 Interpretation and review of laboratory results Normal [facility] Ferritin levels belo w 10 ng/mL have been reported as indicative of iron deficiency anemia. [facility] HEMOCHROMATOSIS MUTATIONon 0 07-04-2025 C28Y HEMOCHROMATOSIS MUT Negative Normal [facility] Comment on above: Performed By: #### L [id number] ####[facility] ([facility])[address] H63D HEMOCHROMATOSIS MUT heterozygous Normal [facility] Comment on above: Performed By: #### L [id number] ####[facility] ([facility])[address] HFE PCR SPECIMEN whole blood Normal [facility] Comment on above: Performed By: #### L [id number] ####[facility] ([facility])[address] INTERPRETATION see note Normal [facility] Comment on above: Result Comment: ORDE R COMMENTS: See attached report. Resulted on behalf of [facility]. Performed By: #### L [id number] ####[facility] ([facility])[address] S65C HEMOCHROMATOSIS MUT Negative Normal [facility] Comment on above: Performed By: #### L [id number] ####[facility] ([facility])[address] [place] [address] RUST LYME ANTIBODY SCREEN WITH RE FLEX TO IMMUNOBLOTon 07-04-2025 LYME ANTIBODY SCREEN Non-Reactive Normal NON REACTIVE [facility] Comment on above: Result Comment: [facility] CDC recommendations for the serologic diagnosis of Lyme disease are to screen with a polyvalent immunoassay and confirm equivocal and positive results with Immunoblot for IgM and IgG. This screening assay was negative; confirmatory testing is not indicated and therefore not sent. A negative result does not exclude the possibility of infection with Borrelia burgdorferi. Performed By: #### L [id number] ####Sas Programmer: ALEKSANDRA CHRISTIANSON ([id number])[facility] ([facility])[address] [place] [address] Laboratory - Chemistry and C hemistry - challengeon 07-04-2025 Ferritin [Mass/Vol] 119 ng/mL 22 - 275 ng/mL [facility] CRP [Mass/Vol] 3.3 mg/L NINF - 5.0 mg/L [facility] Office Visiton 07-04-2025 Follow-up visit [id number] Ce Baer 1985 M Date Provider Department Center 07/04/2025 56-SIGNS, HARDIK J [facility] ID None Family History Problem Relation Age of Onset Psoriasis Mother Hypertension Mother Arthritis Mother Parkinson's Disease Father Alzheimer's disease Father Epilepsy Father Diabetes type II Father Family Status - Relation Status Age at Mother Alive Father Alive Level of Service:45942 [place] OFFICE/OUTPATIENT NEW HIGH MDM 60 MINUTES Reason for Visit and Comments: New Patient [542] - Cellulitis L foot Normal [facility] Progress Noteon 07-04-2025 Progress Note [facility] Infectious Diseases Attending Outpatient Consult Note Reason for Consult: recurrent L foot cellulitis Requesting Physician: Kam Cuellar APRN-LOKI Chief Complaint Patient presents with New Patient [...] up his left lateral leg. 03/17/25 seen [facility] ([place] [place]) ER for a pain between L [...] show discoloration and swelling. Then went to [facility] ED on 03/19/25 with CP but left w/o evaluation. That is when his parents took him to [place] for evaluation and was diagnosed with pneumonia He went to [facility] ED on 06/15/25 for c/o rectal bleeding and blood in urine. He told ER physician that he had seen environmental doctors who told him that he had multiple [...] shows records in (more content not included)... [facility] US SCROTUMon 06-30-2025 US SCROTUM Patient Name: CE BAER : 1985 [facility]#: [id number] Exam Date/Time: 06/29/2025 13:53 Procedure: US SCROTUM [...] Signed Date/Time: 06/30/2025 4:59 PM EDT Normal [facility] B. burgdorferi IgG+IgM Qn (S )on 06-28-2025 B. burgdorferi IgG+IgM IA Ql (S) <=0.90 [facility] Comment on above: Index Interpretation <= 0.90 [...] Lyme disease test report issued by a [place] laboratory: Patients undergoing a Lyme disease test [...] activity/Vol] 39 U/L 7 - 60 U/L [facility] Lipid 1996 panelon 5 Cholesterol [Mass/Vol] 123 mg/dL NINF - 200 mg/dL [facility] Cholesterol in HDL [Mass/Vol] 38 mg/dL Low > OR = 40 [facility] Cholesterol in LDL [Mass/Vol] 70 mg/dL mg/dL (calc) [facility] Comment on above: Reference range: <10 0 Desirable range <100 mg/dL for primary prevention; <70 mg/dL for patients with CHD or diabetic patients with > or = 2 CHD risk factors. LDL-C is now calculated using the To-Roxann calculation, which is a validated novel method providing better accuracy than the Friedewald equation in the estimation of LDL-C. To SS et al. JOVITA. 2013;310(19): 3355-3742 (http://education.Pictarine.InfluAds/faq/ZJT582) Cholesterol non HDL [Mass/Vol] 85 mg/dL [facility] Comment on above: For patients with di abetes plus 1 major ASCVD risk factor, treating to a non-HDL-C goal of <100 mg/dL (LDL-C of <70 mg/dL) is considered a therapeutic option. Cholesterol.total/Chol esterol in HDL [Mass ratio] 3.2 {ratio} [facility] Interpretation and review of laboratory results Abnormal [facility] Triglyceride [Mass/Vol] 66 mg/dL NINF - 150 mg/dL [facility] No Panel Informationon 06-28 [facility] Progress Noteon 06-28-2025 Progress Note Patient still experiencing symptoms with oral intake. Will trial protonix while awaiting GI appointment. Normal [facility] Rheumatoid factoron 07-29-20 25 Rheumatoid factor Qn [IU[facility] 06-28-2025 TSH Qn 0.84 m[IU]/L [facility] 37on 06-27-2025 37 Headache in the pelv is (book) Normal [facility] Office Visiton 06-27-2025 Follow-up visit [id number] Ce Baer 1985 M Date Provider Department Center 06/27/2025 [id number] URO None Family History Problem Relation Age of Onset Psoriasis Mother Hypertension Mother Arthritis Mother Parkinson's Disease Father Alzheimer's disease Father Epilepsy Father Diabetes type II Father Family Status - Relation Status Age at Mother Alive Father Alive Level of Service:37294 [place] OFFICE/OUTPATIENT NEW MODERATE MDM 45 MINUTES Reason for Visit and Comments: New Patient [542] Testicle Pain [260] - Unable to give a urine sample at this time Normal [facility] Progress Noteon 06-27-2025 Progress Note Scott Santamaria [...] the swelling resolved 03/2025 - MERE at [place] showed cysts in testicles, not epididymitis Has [...] colonoscopy Colonoscopy scheduled in August ([facility] in [place]) with GI Abdomen will bloat Not sexually [...] Size: Large adult) Pulse 92 Ht 5' 9 (1.753 m) Wt 219 lb (99.3 kg) [...] Outpatient Medications: doxycycline (more content not included)... [facility] 36on 06-24-2025 36 Your patient has bee n scheduled for their ct on 07/08/25 at [facility]. If testing requires an insurance authorization, the authorization must be in place 48 hours prior to the scheduled test or testing will be cancelled. Thank you, Central Sched[facility] CT ABDOMEN PELVIS WO IV CONT [facility] 06-24-2025 CT ABDOMEN PELVIS WO IV CONTRAST Patient Name: CE BAER : 1985 Exam [...] his urine lab results No surgery Normal [facility] CT Abdomen and Pelvis WO con traston 06-24-2025 No renal or ureteral stones are seen. No hydronephrosis, hydroureter, or perinephric stranding is seen bilaterally. Bilateral L5 pars interarticularis defects are present with grade 1-2 anterolisthesis of L5 on S1. Report Dictated on Electronically Signed By: Alexander Quiñonez MD Electronically Signed Date/Time: 06/24/2025 2:52 PM EDT [facility] [email or web address] [facility] 1985 [id number] Exam Date/Time: 06/24/2025 14:12 Procedure: CT ABDOMEN [...] grade 1-2 anterolisthesis of L5 on S1. [facility] Alexander Quiñonez MD - 06/24/2025 [facility] 1985 [id number] Exam Date/Time: 06/24/2025 14:12 Procedure: CT ABDOMEN [...] Electronically Signed Date/Time: 06/24/2025 2:52 PM EDT [facility] Radiology Study observation (narrative) [facility] CT Abdomen and Pelvis WO con trastOrdered By: Alexander Quiñonez on 06-24-2025 [facility] 29on 06-22-2025 29 Addended by: SCOTT CUELLAR on: 06/28/2025 02:29 PM Modules accepted: Level of Service Normal [facility] Office Visiton 06-22-2025 Follow-up visit [id number] Ce Baer 1985 M Date Provider Department Center 06/22/2025 5333-SCOTT CUELLAR [facility] Family History Problem Relation Age of Onset Psoriasis Mother Hypertension Mother Arthritis Mother Parkinson's Disease Father Alzheimer's disease Father Epilepsy Father Diabetes type II Father Family Status - Relation Status Age at Mother Alive Father Alive Level of Service:56953 [place] OFFICE/OUTPATIENT ESTABLISHED MOD MDM 30 MIN Reason for Visit and Comments: New Patient [542] Establish Care [42] Normal [facility] Progress Noteon 06-22-2025 Progress Note . Visit type: New Patient Reason for Visit: New Patient and Establish Care Assessment and Plan 1. Encounter for routine history and physical exam for male Comments: Labs ordered and pending 2. Bipolar 1 disorder (HCC) Comments: Refer to psych Patient states stable however unstable aspect see ER visit No HI or SI Orders: - [facility] Psychiatry 3. Primary hypertension Comments: Labs ordered [...] of kidney stones Ultrasound ordered Orders: - [facility] Urology - US scrotum 8. Lipid screening [...] 36.9 ?C (98.4 ?F) (Temporal) Ht 5' 9 (1.753 m) Wt 219 lb (99.3 kg) [...] Friday and (more content not included)... Normal [facility] CBC W Auto Differential pane l (Bld)Ordered By: Candice Cunningham on 06-15-2025 Basophils (Bld) [#/Vol] 0 10*3/uL 0.0 - 0.2 10*3/uL [facility] Basophils/100 WBC (Bld) 0.5 % 0.0 - 2.0 % [facility] Eosinophils (Bld) [#/Vol] 0.1 10*3/uL 0.0 - 0.5 10*3/uL [facility] Eosinophils/100 WBC (Bld) 0.9 % 0.0 - 6.0 % [facility] Erythrocyte distribution width (RBC) [Ratio] 12.6 % 11.5 - 15.0 % [facility] Hematocrit (Bld) [Volume fraction] 47.1 % 40.0 - 52.0 % [facility] Hemoglobin (Bld) [Mass/Vol] 17.1 g/dL 13.0 - 18.0 g/dL [facility] Immature granulocytes (Bld) [#/Vol] 0 10*3/uL NINF - 0.1 10*3/uL [facility] Immature granulocytes/100 WBC (Bld) 0.2 % 0.0 - 2.0 % [facility] Interpretation and review of laboratory results Abnormal [facility] Lymphocytes (Bld) [#/Vol] 2 10*3/uL 1.0 - 4.3 10*3/uL [facility] Lymphocytes/100 WBC (Bld) 23.1 % 15.0 - 45.0 % [facility] MCH (RBC) [Entitic mass] 32.2 pg 26.0 - 34.0 pg [facility] MCHC (RBC) [Mass/Vol] 36.3 % High 30.5 - 36.0 % [facility] MCV (RBC) [Entitic vol] 88.7 fL 77.0 - 99.0 fL [facility] Monocytes (Bld) [#/Vol] 0.7 10*3/uL 0.0 - 0.9 10*3/uL [facility] Monocytes/100 WBC (Bld) 7.6 % 5.0 - 13.0 % [facility] Neutrophils (Bld) [#/Vol] 6 10*3/uL 1.8 - 7.5 10*3/uL [facility] Neutrophils/100 WBC (Bld) 67.7 % 38.0 - 82.0 % [facility] Nucleated RBC/100 WBC (Bld) [Ratio] 0 % [facility] Platelet mean volume (Bld) [Entitic vol] 10.2 fL 9.0 - 12.7 fL [facility] Comment on above: MPV is a calculated measurement using platelet volume ratio Platelets (Bld) [#/Vol] 224 10*3/uL 140 - 440 10*3/uL [facility] RBC (Bld) [#/Vol] 5.31 10*6/uL 4.40 - 5.9 0 10*6/uL [facility] WBC (Bld) [#/Vol] 8.8 10*3/uL 3.6 - 10.7 10*3/uL [facility] CBC WITH AUTO DIFFERENTIALon 06-15-2025 Basophils (Bld) [#/Vol] 0.0 10*3/uL Normal 0.0-0.2 [facility] Comment on above: Performed By: #### L [id number] ####Sas Programmer: ALEKSANDRA CHRISTIANSON ([id number])[facility] ([facility])[address] [place] [address] [place] Basophils/100 WBC (Bld) 0.5 % Normal 0.0-2.0 [facility] Comment on above: Performed By: #### L [id number] ####Sas Programmer: ALEKSANDRA CHRISTIANSON ([id number])[facility] ([facility])[address] [place] [address] [place] Eosinophils (Bld) [#/Vol] 0.1 10*3/uL Normal 0.0-0.5 [facility] Comment on above: Performed By: #### L [id number] ####Sas Programmer: ALEKSANDRA CHRISTIANSON ([id number])[facility] ([facility])[address] [place] [address] [place] Eosinophils/100 WBC (Bld) 0.9 % Normal 0.0-6.0 [facility] Comment on above: Performed By: #### L [id number] ####Sas Programmer: AELKSANDRA CHRISTIANSON ([id number])[facility] ([facility])[address] [place] [address] Erythrocyte distribution width (RBC) [Ratio] 12.6 % Normal 11.5-15.0 [facility] Comment on above: Performed By: #### L [id number] ####Sas Programmer: ALEKSANDRA CHRISTIANSON ([phone])[facility] [place] [facility] ([facility])[address] [place] [address] Hematocrit (Bld) [Volume fraction] 47.1 % Normal 40.0-52.0 [facility] Comment on above: Performed By: #### L [id number] ####Sas Programmer: ALEKSANDRA CHRISTIANSON ([id number])[facility] [place] [facility] ([facility])[address] [place] [address] Hemoglobin (Bld) [Mass/Vol] 17.1 g/dL Normal 13.0-18.0 [facility] Comment on above: Performed By: #### L [id number] ####Sas Programmer: ALEKSANDRA CHRISTIANSON ([id number])[facility] [place] [facility] ([facility])[address] [place] [address] IMMATURE GRANS % 0.2 % Normal 0.0-2.0 [facility] Comment on above: Performed By: #### L [id number] ####Sas Programmer: ALEKSANDRA CHRISTIANSON ([id number])[facility] [place] [facility] ([facility])[address] [place] [address] IMMATURE GRANS ABSOLUTE 0.0 10*3/uL Normal <0.1 [facility] Comment on above: Performed By: #### L [id number] ####Sas Programmer: ALEKSANDRA CHRISTIANSON ([id number])[facility] [place] [facility] ([facility])[address] [place] [address] Lymphocytes (Bld) [#/Vol] 2.0 10*3/uL Normal 1.0-4.3 [facility] Comment on above: Performed By: #### L [id number] ####Sas Programmer: ALEKSANDRA CHRISTIANSON ([id number])[facility] [place] [facility] ([facility])[address] [place] [address] [place] Lymphocytes/100 WBC (Bld) 23.1 % Normal 15.0-45.0 [facility] Comment on above: Performed By: #### L [id number] ####Sas Programmer: ALEKSANDRA CHRISTIANSON ([id number])[facility] [place] [facility] ([facility])[address] [place] [address] MCH (RBC) [Entitic mass] 32.2 pg Normal 26.0-34.0 [facility] Comment on above: Performed By: #### L [id number] ####Sas Programmer: ALEKSANDRA CHRISTIANSON ([id number])[facility] [place] [facility] ([facility])[address] [place] [address] MCHC 36.3 % High 30.5-36.0 [facility] Comment on above: Performed By: #### L [id number] ####Sas Programmer: ALEKSANDRA CHRISTIANSON ([id number])[facility] [place] [facility] ([facility])[address] [place] [address] MCV (RBC) [Entitic vol] 88.7 fL Normal 77.0-99.0 [facility] Comment on above: Performed By: #### L [id number] ####Sas Programmer: ALEKSANDRA CHRISTIANSON ([id number])[facility] [place] [facility] ([facility])[address] [place] [address] Monocytes (Bld) [#/Vol] 0.7 10*3/uL Normal 0.0-0.9 [facility] Comment on above: Performed By: #### L [id number] ####Sas Programmer: ALEKSANDRA CHRISTIANSON ([id number])[facility] [place] [facility] ([facility])[address] [place] [address] [place] Monocytes/100 WBC (Bld) 7.6 % Normal 5.0-13.0 [facility] Comment on above: Performed By: #### L [id number] ####Sas Programmer: ALEKSANDRA CHRISTIANSON ([id number])[facility] [place] [facility] ([facility])[address] [place] [address] NEUTROPHILS ABSOLUTE 6.0 10*3/uL Normal 1.8-7.5 [facility] Comment on above: Performed By: #### L [id number] ####Sas Programmer: ALEKSANDRA CHRISTIANSON ([id number])[facility] [place] [facility] ([facility])[address] [place] [address] Neutrophils/100 WBC (Bld) 67.7 % Normal 38.0-82.0 [facility] Comment on above: Performed By: #### L [id number] ####Sas Programmer: ALEKSANDRA CHRISTIANSON ([id number])[facility] [place] [facility] ([facility])[address] [place] [address] NRBC 0.0 /100 WBCs Normal 0.0-2.0 [facility] Comment on above: Performed By: #### L [id number] ####Sas Programmer: ALEKSANDRA CHRISTIASNON ([id number])[facility] [place] [facility] ([facility])[address] [place] [address] Platelet mean volume (Bld) [Entitic vol] 10.2 fL Normal 9.0-12.7 [facility] Comment on above: Result Comment: MPV is a calculated measurement using platelet volume ratio Performed By: #### L [id number] ####Sas Programmer: ALEKSANDRA CHRISTIANSON ([id number])[facility] [place] [facility] ([facility])[address] [place] [address] [place] Platelets (Bld) [#/Vol] 224 10*3/uL Normal 140-440 [facility] Comment on above: Performed By: #### L [id number] ####Sas Programmer: ALEKSANDRA CHRISTIANSON ([id number])[facility] [place] [facility] ([facility])[address] [place] [address] [place] RBC (Bld) [#/Vol] 5.31 10*6/uL Normal 4.40-5.90 [facility] Comment on above: Performed By: #### L [id number] ####Sas Programmer: ALEKSANDRA CHRISTIANSON ([id number])[facility] [place] [facility] ([facility])[address] [place] [address] [place] WBC (Bld) [#/Vol] 8.8 10*3/uL Normal 3.6-10.7 [facility] Comment on above: Performed By: #### L [id number] ####Sas Programmer: ALEKSANDRA CHRISTIANSON ([id number])[facility] [place] [facility] ([facility])[address] COMPLETE URINALYSIS WITH REF PETAR TO CULTUREon 06-15-2025 BACTERIA (#/HPF) IN URINE Negative Normal Negative [facility] Comment on above: Performed By: #### L [id number] ####Sas Programmer: ALEKSANDRA CHRISTIANSON ([id number])[facility] [place] [facility] ([facility])[address] [place] [address] [place] BILIRUBIN, TOTAL PRESENCE IN URINE Negative Normal Negative [facility] Comment on above: Performed By: #### L [id number] ####Sas Programmer: ALEKSANDRA CHRISTIANSON ([id number])[facility] [place] [facility] ([facility])[address] [place] [address] Clarity (U) Clear Normal Clear [facility] Comment on above: Performed By: #### L [id number] ####Sas Programmer: ALEKSANDRA CHRISTIANSON ([id number])[facility] [place] [facility] ([facility])[address] Color (U) Light Yellow Normal Lt. Yellow [facility] Comment on above: Performed By: #### L [id number] ####Sas Programmer: ALEKSANDRA CHRISTIANSON ([id number])[facility] [place] [facility] ([facility])[address] [place] [address] [place] GLUCOSE (MG/DL) IN URINE Normal Normal Normal (<70) [facility] Comment on above: Performed By: #### L [id number] ####Sas Programmer: ALEKSANDRA CHRISTIANSON ([id number])[facility] [place] [facility] ([facility])[address] [place] [address] HEMOGLOBIN PRESENCE IN URINE 0.1 mg/dL Abnormal Negative [facility] Comment on above: Performed By: #### L [id number] ####Sas Programmer: ALEKSANDRA CHRISTIANSON ([id number])[facility] [place] [facility] ([facility])[address] [place] [address] Ketones Ql (U) Negative Normal Negative [facility] Comment on above: Performed By: #### L [id number] ####Sas Programmer: ALEKSANDRA CHRISTIANSON ([id number])[facility] [place] [facility] ([facility])[address] [place] [address] LEUKOCYTE ESTERASE PRESENCE IN URINE BY TEST STRIP Negative Normal Negative [facility] Comment on above: Performed By: #### L [id number] ####Sas Programmer: ALEKSANDRA CHRISTIANSON ([id number])[facility] [place] [facility] ([facility])[address] [place] [address] NITRITE PRESENCE IN URINE Negative Normal Negative [facility] Comment on above: Performed By: #### L [id number] ####Sas Programmer: ALEKSANDRA CHRISTIANSON ([id number])[facility] [place] [facility] ([facility])[address] [place] [address] pH (U) 5.5 [pH] Normal 5.0-8.0 [facility] Comment on above: Performed By: #### L [id number] ####Sas Programmer: ALEKSANDRA CHRISTIANSON ([id number])[facility]ITAL[facility] JOHNSON RITTMAN (SWRLAB)[address] [place] [address] Protein (U) [Mass/Vol] Negative Normal Negative [facility] Comment on above: Performed By: #### L [id number] ####Sas Programmer: ALEKSANDRA CHRISTIANSON ([id number])[facility] [place] [facility] (SWRLAB)[address] [place] [address] [place] RBC (#/HPF) IN URINE SEDIMENT 3-5 Abnormal 0-2 [facility] Comment on above: Performed By: #### L [id number] ####Sas Programmer: ALEKSANDRA CHRISTIANSON ([id number])[facility] [place] [facility] (SWRL[place])[address] [place] [address] Specific gravity (U) [Rel density] 1.012 Normal 1.005-1.030 [facility] Comment on above: Result Comment: ELI Leger COMMENTS: A specimen with <=10 WBC is not consistent with inflammation. This specimen will not reflex to a urine culture. Performed By: #### L [id number] ####Sas Programmer: ALEKSANDRA CHRISTIANSON ([id number])[facility] [place] [facility] (SWRL[place])[address] [place] [address] Specimen volume (U) 12 mL Normal [facility] Comment on above: Performed By: #### L [id number] ####Sas Programmer: ALEKSANDRA CHRISTIANSON ([id number])[facility] [place] (SWRL[place])[address] [place] [address] [place] SQUAMOUS EPITHELIAL CELLS (#/HPF) IN URINE SEDIMENT Negative Normal 3-5 [facility] Comment on above: Performed By: #### L [id number] ####Sas Programmer: ALEKSANDRA CHRISTIANSON ([id number])[facility] [place] (SWRL[place])[address] [place] [address] [place] UROBILINOGEN (MG/DL) IN URINE Normal Normal Normal (0-1) [facility] Comment on above: Performed By: #### L [id number] ####Sas Programmer: ALEKSANDRA CHRISTIANSON ([id number])[facility] [place] (SWRL[place])[address] [place] [address] [place] WBC (LEUKOCYTE) (#/HPF) IN URINE SEDIMENT Negative Normal 0-5 [facility] Comment on above: Performed By: #### L [id number] ####Sas Programmer: ALEKSANDRA CHRISTIANSON ([id number])[facility]ITAL[facility] [place] (SWRLAB)[address] COMPREHENSIVE METABOLIC PANE Antoni 06-15-2025 Albumin [Mass/Vol] 4.2 g/dL Normal 3.5-5.0 [facility] Comment on above: Performed By: #### L [id number] ####Sas Programmer: ALEKSANDRA CHRISTIANSON ([id number])[facility] [place] (SWRL[place])[address] ALP [Catalytic activity/Vol] 48 U/L Normal 40-150 [facility] Comment on above: Performed By: #### L [id number] ####Sas Programmer: ALEKSANDRA CHRISTIANSON ([id number])[facility] [place] (SWRL[place])[address] [place] [address] [place] ALT [Catalytic activity/Vol] 18 U/L Normal <40 [facility] Comment on above: Performed By: #### L [id number] ####Sas Programmer: ALEKSANDRA CHRISTIANSON ([id number])[facility] [place] (SW[place])[address] Anion gap [Moles/Vol] 11 mmol/L Normal 3-13 [facility] Comment on above: Performed By: #### L [id number] ####Sas Programmer: ALEKSANDRA CHRISTIANSON ([id number])[facility] [place] (SWRL[place])[address] AST [Catalytic activity/Vol] 31 U/L Normal <34 [facility] Comment on above: Performed By: #### L [id number] ####Sas Programmer: ALEKSANDRA CHRISTIANSON ([id number])[facility] [place] (SWRLAB)[address] [place] [address] Bilirubin [Mass/Vol] 0.6 mg/dL Normal <1.2 [facility] Comment on above: Performed By: #### L [id number] ####Sas Programmer: ALEKSANDRA CHRISTIANSON ([id number])[facility] [place] (SWRL[place])[address] [place] [address] [place] Calcium [Mass/Vol] 8.8 mg/dL Normal 8.4-10.2 [facility] Comment on above: Performed By: #### L [id number] ####Sas Programmer: ALEKSANDRA CHRISTIANSON ([id number])[facility] [place] (SWRL[place])[address] [place] [address] [place] Chloride [Moles/Vol] 106 mmol/L Normal 98-107 [facility] Comment on above: Performed By: #### L [id number] ####Sas Programmer: ALEKSANDRA CHRISTIANSON ([id number])[facility] [place] (SWRL[place])[address] [place] [address] [place] CO2 [Moles/Vol] 21 mmol/L Low 22-29 [facility] Comment on above: Performed By: #### L [id number] ####Sas Programmer: ALEKSANDRA CHRISTIANSON ([id number])[facility] [place] (SWRL[place])[address] [place] [address] [place] Creatinine [Mass/Vol] 0.80 mg/dL Normal 0.72-1.25 [facility] Comment on above: Performed By: #### L [id number] ####Sas Programmer: ALEKSANDRA CHRISTIANSON ([id number])[facility] [place] (SWRL[place])[address] [place] [address] [place] GLOMERULAR FILTRATION RATE ML/MIN/1.73 SQ M.PREDICTED >90.0 Normal >60.0 [facility] Comment on above: Result Comment: Calc ulation based on the Chronic Kidney Disease Epidemiology Collaboration (CKD-EPI) equation refit without adjustment for race Performed By: #### L [id number] ####Sas Programmer: ALEKSANDRA CHRISTIANSON ([id number])[facility] [place] (SWRL[place])[address] [place] [address] [place] Glucose [Mass/Vol] 93 mg/dL Normal 74-100 [facility] Comment on above: Performed By: #### L [id number] ####Sas Programmer: ALEKSANDRA CHRISTIANSON ([id number])[facility]ITAL[facility] LOZANOTMAN (SWRLAB)[address] [place] [address] Potassium [Moles/Vol] 4.2 mmol/L Normal 3.5-5.1 [facility] Comment on above: Result Comment: [facility] potassium values may be up to 0.5 mmol/L lower than serum values. Performed By: #### L [id number] ####Sas Programmer: ALEKSANDRA CHRISTIANSON ([id number])[facility]ITAL[facility] LOZANOTMAN (SWRLAB)[address] [place] [address] Protein [Mass/Vol] 7.2 g/dL Normal 6.4-8.3 [facility] Comment on above: Performed By: #### L [id number] ####Sas Programmer: ALEKSANDRA CHRISTIANSON ([id number])[facility] [place] (SWRL[place])[address] [place] [address] Sodium [Moles/Vol] 138 mmol/L Normal 136-145 [facility] Comment on above: Performed By: #### L [id number] ####Sas Programmer: ALEKSANDRA CHRISTIANSON ([id number])[facility] [place] (SWRL[place])[address] [place] [address] Urea nitrogen [Mass/Vol] 12 mg/dL Normal 8-21 [facility] Comment on above: Performed By: #### L [id number] ####Sas Programmer: ALEKSANDRA CHRISTIANSON ([id number])[facility] [place] [facility] (SWRL[place])[address] [place] [address] Comprehensive metabolic 1998 panelon 06-15-2025 Albumin [Mass/Vol] 4.2 g/dL 3.5 - 5.0 g/dL [facility] ALP [Catalytic activity/Vol] 48 U/L 40 - 150 U/L [facility] ALT [Catalytic activity/Vol] 18 U/L NINF - 40 U/L [facility] Anion gap [Moles/Vol] 11 mmol/L 3 - 13 mmol/L [facility] AST [Catalytic activity/Vol] 31 U/L NINF - 34 U/L [facility] Bilirubin [Mass/Vol] 0.6 mg/dL NINF - 1.2 mg/dL [facility] Calcium [Mass/Vol] 8.8 mg/dL 8.4 - 10. 2 mg/dL [facility] Chloride [Moles/Vol] 106 mmol/L 98 - 10 7 mmol/L [facility] CO2 [Moles/Vol] 21 mmol/L Low 22 - 29 mmol/L [facility] Creatinine [Mass/Vol] 0.8 mg/dL 0.72 - 1.25 mg/dL [facility] GFR/1.73 sq M.predicted (S/P/Bld) [Vol rate/Area] - PINF [facility] Comment on above: Calculation based on the Chronic Kidney Disease Epidemiology Collaboration (CKD-EPI) equation refit without adjustment for race Glucose [Mass/Vol] 93 mg/dL 74 - 100 mg/dL [facility] Interpretation and review of laboratory results Abnormal [facility] Potassium [Moles/Vol] 4.2 mmol/L 3.5 - 5.1 mmol/L [facility] Comment on above: Plasma potassium edmund ues may be up to 0.5 mmol/L lower than serum values. Protein [Mass/Vol] 7.2 g/dL 6.4 - 8.3 g/dL [facility] Sodium [Moles/Vol] 138 mmol/L 136 - 145 mmol/L [facility] Urea nitrogen [Mass/Vol] 12 mg/dL 8 - 21 mg/dL [facility] ED Nursing Noteon 06-15-2025 ED Nursing Note [...] ED. Pt. Reported that the nurse and other lady were nice but that the provider was rude and confrontational. Pt. Stated that he could hear the doctors demeanor with the patient in room 14 and said that it was completely different than how the doctor approached and spoke to him. Pt. Stated being angry that he keeps going to emergency departments and I don't feel good and I know that I'm sick and no one helps me. Pt. Also reports being told to come to the ER. By urgent cares and pt. Nurse lines. IV was removed. Pt. Was given the number for [facility] Customer Service and advised to call them the next day in order to process his complaint. The patient and his family member had deescalated by the time this nurse walked them out to the lobby. Provider notified. Boiler/Chiller Operator notified. [facility] ED Nursing Note Patient is here for [...] or symptoms. Call light within reach. Normal [facility] ED Provider Noteon ED Provider Note EMERGENCY [...] Patient is very aggravated and agitated, see [facility] for more details. Nursing Notes were reviewed. [...] EKG interpretation can be found below in [facility] RADIOLOGY (Per Emergency Physician): As per below in [facility] section Interpretation per the Radiologist below, if [...] Negative S (more content not included)... Normal [facility] Progress Noteon 06-15-2025 Progress Note This encounter [...] facility with an upright steady gait. Normal [facility] Urinalysis complete panel (U )on 06-15-2025 Bacteria LM.HPF (Urine sed) [#/Area] Negative Negative /HPF [facility] Bilirubin Ql (U) Negative Negative mg/dL [facility] Clarity (U) Clear Clear [facility] Color (U) Light Yellow Lt. Yellow [facility] Epithelial cells.squamous LM.HPF (Urine sed) [#/Area] Negative [facility] Glucose Ql (U) Normal Normal (<70) mg/dL [facility] Hemoglobin Ql (U) 0.1 mg/dL Abnormal Negative [facility] ealth Interpretation and review of laboratory results Abnormal [facility] Ketones (U) [Mass/Vol] Negative Negat jackie mg/dL [facility] Leukocyte esterase Test strip Ql (U) Negative Negative Taurus/uL [facility] Nitrite Ql (U) Negative Negative [facility] pH (U) 5.5 [pH] 5.0 - 8.0 pH [facility] Protein (U) [Mass/Vol] Negative Negat jackie mg/dL [facility] RBC LM.HPF (Urine sed) [#/Area] 3-5 Abnormal [facility] Specific gravity (U) [Rel density] 1.012 1.005 - 1.030 [facility] Urobilinogen (U) [Mass/Vol] Normal Normal (0-1) mg/dL [facility] Volume, Urine 12 mL [facility] WBC LM.HPF (Urine sed) [#/Area] Negative [facility] A specimen with <=10 WBC is not consistent with inflammation. This specimen will not reflex to a urine culture. [facility] 36on 06-13-2025 36 S: Caller spoke with [facility] nurse regarding [...] up. Caller states he went to the [facility], hasn't seen a PCP in a couple [...] 4 weeks) Protocols used: Weakness (Generalized) and [facility] ----- CE BAER II ([id number]) 1985 M Date Time Provider Department 04/22/25 [...] Fully Assessed Reason for Visit: Patient Question [7257] Prescriptions as of 04/22/2025 - fexofenadine (VIVI [...] Encounter Status:Closed by DORCAS CALLE on 04/22/25 [facility] 36on 03-22-2025 36 Returned pt's call b ut had to [facility] requesting call back. Informed pt in my voicemail that before we can proceed with possible [employer] appt, would need his PCP and/or the provider he saw in [place] fax a referral to our office along with the pertinent labs/imaging/provider notes so we may review. [facility] 36on 03-21-2025 36 Name of Caller: Herb elias Contact Reason for Appointment: Ce was seen in [facility] in [place], [place] for cellulitis and staph of foot that did not heal from oral or IV antibiotics and also has bacterial pneumonia. He was referred to their infectious disease, but they are too far away from him. Ce would like to be seen at [facility] Infectious Disease. He has all of the reports and information from his care. Please reach out to Ce to advise. Office Name: Infectious Disease [facility] Emergency Department Summary on 03-19-2025 Emergency Department Summary [facility] Medical Records Department [address] [place] [id number] Emergency Department Summary 03/19/25 MR#: [id number] Acct: [id number] Name: CE BAER II Rep #: [id number] : 1985 39 From: Matthias Tucker DO PCP: Dr. Elizabeth Argueta DO Status:DEP ER Location: ED HPI History [...] next day 03-17 he was seen at [facility]. I was able to review that chart and according to the ER documentation he was seen secondary to concern about his foot as well as chest discomfort and scrotal pain. He had an EKG which was normal sinus rhythm and chest x-ray obtained which was normal and he was discharged home. The patient then returns on for repeat evaluation. [facility] Medical History Laceration Obsessive compulsive disorder Depression [...] in hearing that and that the apology is not excepted. He states that he does not want [...] feels I was rude and arrogant and berating him. Therefore the patient will leave AGAINST MEDICAL [...] DO [Primary Care Provider] - Print Language: Thai Disposition Disposition: Against Medical Advice Discharge Date/Time: 03/19/25 04:59 What to do if you have Problems For (more content not included)... Normal [facility] Wound Cultureon 03-18-2025 List Antibiotics Las t 48 Hours? bactrim and keflex No growth aerobically. Normal [facility] Comment on above: Performed By: #### M 100.3000, M100.2000 #### [facility] [address] [place], [address] ED Prov Noteon 03-17-2025 ED Prov Note ED PROVIDER NOTE [facility] EMERGENCY DEPARTMENT NAME: Ce Baer AGE: 39 y.o. : 1985 VISIT DATE: 03/17/2025 CSN: [id number] PCP: No, Physician Chief Complaint Patient presents [...] C) Oral 80 15 97 % 5' 9 97.5 kg (215 lb) Physical Exam Vitals [...] a urologist w (more content not included)... Normal [facility] Gram Stainon 03-17-2025 GS List Antibiotics Las t 48 Hours? bactrim and keflex Gram Stain Rare White Blood Cells Rare Gram negative rods Normal [facility] Comment on above: Performed By: #### M 100.3000, M100.2000 #### [facility] [address] [place], [address] XR CHEST AP/PA AND LATon XR CHEST [...] 17, 2025 5:24:21 PM EDT Finalized by: ORSA MARIA GONZALEZ on FriMar 17, 2025 5:24:[address] [facility] Comment on above: Order Comment: Injur [...] 03-16-2025 Neutrophils (Bld) [#/Vol] 5.2 10*3/uL 2.0-7.7 [facility] Anion gap in Serum or Plasma Ordered By: Ari Walls on 03-16-2025 Anion gap [Moles/Vol] 10 mmol/L - [facility] BUN/creatinine ratioOrdered By: Ari Walls on 03-16-2025 Urea nitrogen/Creatinine [Mass ratio] 19.8 mg/mg - [facility] Basic Metabolic Profile (BMP )on 03-16-2025 BUN/CRE 19.8 RATIO Normal - [facility] Comment on above: Performed By: #### L 100.0100, L500.2500 #### [facility] [address] [place], [address] Calcium [Mass/Vol] 8.5 mg/dL Normal 7.6-11.[address] [facility] Comment on above: Performed By: #### L 100.0100, L500.2500 #### [facility] [address] [place], [address] Chloride [Moles/Vol] 105 mmol/L Normal 98-108 [facility] Comment on above: Performed By: #### L 100.0100, L500.2500 #### [facility] [address] [place], [address] CO2 [Moles/Vol] 21.4 mmol/L Normal 21.0-32.0 [facility] Comment on above: Performed By: #### L 100.0100, L500.2500 #### [facility] [address] [place], [address] Creatinine [Mass/Vol] 0.83 mg/dL Normal 0.70-1.20 [facility] Comment on above: Performed By: #### L 100.0100, L500.2500 #### [facility] [address] [place], [address] ECRCL 140.25 ml/min Normal 50-250 [facility] Comment on above: Performed By: #### L 100.0100, L500.2500 #### [facility] [address] [place], [address] GAP 10 Normal 5-15 [facility] Comment on above: Performed By: #### L 100.0100, L500.2500 #### [facility] [address] [place], [address] GFR/1.73 sq M.predicted among non-blacks MDRD (S/P/Bld) [Vol rate/Area] 116 mL/min/{1.73_m2} Normal >60 [facility] Comment on above: Result Comment: mL/m in/1.73m2 CKD-EPI Creatinine Equation (2020) Performed By: #### L 100.0100, L500.2500 #### [facility] [address] [place], [address] Glucose [Mass/Vol] 100 mg/dL High 70-[address] [facility] Comment on above: Performed By: #### L 100.0100, L500.2500 #### [facility] [address] [place], [address] Potassium [Moles/Vol] 3.8 mmol/L Normal 3.3-5.1 [facility] Comment on above: Performed By: #### L 100.0100, L500.2500 #### [facility] [address] [place], [address] Sodium [Moles/Vol] 137 mmol/L Normal 133-[address] [facility] Comment on above: Performed By: #### L 100.0100, L500.2500 #### [facility] [address] [place], [address] Urea nitrogen [Mass/Vol] 16 mg/dL Normal 4-19 [facility] Comment on above: Performed By: #### L 100.0100, L500.2500 #### [facility] [address] [place], [address] Basophil percentageOrdered B y: Ari Walls on 03-16-2025 Basophils/100 WBC (Bld) 0.5 % 0-1 [facility] CBC W/Diff, Automatedon 03-01 Absolute Lymph 2.24 X10 3/uL Normal 0.83-4.51 [facility] Comment on above: Performed By: #### L 100.0100, L500.2500 #### [facility] [address] [place], [address] Absolute Neut 5.2 X10 3/uL Normal 2.0-7.7 [facility] Comment on above: Performed By: #### L 100.0100, L500.2500 #### [facility] [address] [place], [address] Basophils/100 WBC (Bld) 0.5 % Normal 0-1 [facility] Comment on above: Performed By: #### L 100.0100, L500.2500 #### [facility] [address] [place], [address] Eosinophils/100 WBC (Bld) 2.4 % Normal 0-5 [facility] Comment on above: Performed By: #### L 100.0100, L500.2500 #### [facility] [address] [place], [address] Erythrocyte distribution width (RBC) [Ratio] 12.1 % Normal 11.6-14.6 [facility] Comment on above: Performed By: #### L 100.0100, L500.2500 #### [facility] [address] [place], [address] Hematocrit (Bld) [Volume fraction] 41.9 % Normal 40-54 [facility] Comment on above: Performed By: #### L 100.0100, L500.2500 #### [facility] [address] [place], [address] Hemoglobin (Bld) [Mass/Vol] 15.4 g/dL Normal 13.0-16.5 [facility] Comment on above: Performed By: #### L 100.0100, L500.2500 #### [facility] [address] [place], [address] IG% 0.400 Normal 0.0-0.9 [facility] Comment on above: Result Comment: IG% - Immature Granulocytes (promyelocytes, myelocytes and metamyelocytes) > 1% indicates that a LEFT SHIFT is Present. Performed By: #### L 100.0100, L500.2500 #### [facility] [address] [facility] [place], [address] Lymphocytes/100 WBC (Bld) 26.5 % Normal 19-41 [facility] Comment on above: Performed By: #### L 100.0100, L500.2500 #### [facility] [address] [place], [address] MCH (RBC) [Entitic mass] 32.4 pg High 27.0-32.0 [facility] Comment on above: Performed By: #### L 100.0100, L500.2500 #### [facility] [address] [place], [address] MCHC (RBC) [Mass/Vol] 36.8 g/dL High 32-36 [facility] Comment on above: Performed By: #### L 100.0100, L500.2500 #### [facility] [address] [place], [address] MCV (RBC) [Entitic vol] 88.0 fL Normal 80-94 [facility] Comment on above: Performed By: #### L 100.0100, L500.2500 #### [facility] [address] [place], [address] Monocytes/100 WBC (Bld) 8.5 % Normal 0-10 [facility] Comment on above: Performed By: #### L 100.0100, L500.2500 #### [facility] [address] [place], [address] Neutrophils/100 WBC (Bld) 61.7 % Normal 47-70 [facility] Comment on above: Performed By: #### L 100.0100, L500.2500 #### [facility] [address] [place], [address] Nucleated RBC (Bld) [#/Vol] 0 10*3/uL Normal 0-5 [facility] Comment on above: Performed By: #### L 100.0100, L500.2500 #### [facility] [address] [place], [address] Platelet mean volume (Bld) [Entitic vol] 9.5 fL Normal 6.2-12.0 [facility] Comment on above: Performed By: #### L 100.0100, L500.2500 #### [facility] [address] [place], [address] Platelets (Bld) [#/Vol] 211 10*3/uL Normal 150-450 [facility] Comment on above: Performed By: #### L 100.0100, L500.2500 #### [facility] [address] [place], [address] RBC (Bld) [#/Vol] 4.76 10*6/uL Normal 4.6-6.2 [facility] Comment on above: Performed By: #### L 100.0100, L500.2500 #### [facility] [address] [place], [address] RDW SD 38.7 fl Normal 35.1-43.9 [facility] Comment on above: Performed By: #### L 100.0100, L500.2500 #### [facility] [address] [place], [address] WBC (Bld) [#/Vol] 8.5 10*3/uL Normal 4.4-11.[address] [facility] Comment on above: Performed By: #### L 100.0100, L500.2500 #### [facility] [address] [place], [address] CELPNLon 03-16-2025 Deam Gliad IgA Abs 4 units Normal 0-19 [facility] Comment on above: Result Comment: Nega tive 0 - 19 Weak Positive 20 - 30 Moderate to Strong Positive >30 Performed By: #### L IP, GFR, CBC, MDW, ANEU, ADIFF, CMP #### [address] [address] Deam Gliad IgG Abs 2 units Normal 0-19 [facility] Comment on above: Result Comment: Nega tive 0 - 19 Weak Positive 20 - 30 Moderate to Strong Positive >30 Performed By: #### L IP, GFR, CBC, MDW, ANEU, ADIFF, CMP #### [address] [address] Endomysial IgA Ab Negative Normal Negative [facility] Comment on above: Performed By: #### L IP, GFR, CBC, MDW, ANEU, ADIFF, CMP #### [address] [address] IgA [Mass/Vol] 184 mg/dL Normal 90-386 [facility] Comment on above: Result Comment: Perf ormed At: [facility] [address] [place], [place] [id number] Doyle Silva PhD Ph:[phone] Performed By: #### L IP, GFR, CBC, MDW, ANEU, ADIFF, CMP #### [place] [address] [place], [place] [address] tTG IgA <2 Normal 0-3 [facility] Comment on above: Result Comment: Nega tive 0 - 3 Weak Positive 4 - 10 Positive >10 Tissue Transglutaminase (tTG) has been identified as the endomysial antigen. Studies have demonstr- ated that endomysial IgA antibodies have over 99% specificity for gluten sensitive enteropathy. Performed By: #### L IP, GFR, CBC, MDW, ANEU, ADIFF, CMP #### [place] [address] [place], [place] [address] tTG IgG <2 Normal 0-5 [facility] Comment on above: Result Comment: Nega tive 0 - 5 Weak Positive 6 - 9 Positive >9 Performed By: #### L IP, GFR, CBC, MDW, ANEU, ADIFF, CMP #### [place] [address] [place], [place] [address] Carbon dioxide, total [Moles /volume] in Central venous bloodOrdered By: Ari Walls on 03-16-2025 CO2 [Moles/Vol] 21.4 mmol/L 21.0-32.0 [facility] Chloride assayOrdered By: Keith Walls on 03-16-2025 Chloride [Moles/Vol] 105 mmol/L 98-108 [facility] Emergency Department Summary on 03-16-2025 Emergency Department Summary [facility] Medical Records Department [address] [place] [address] Emergency Department Summary 03/16/25 MR#: [id number] Acct: [id number] Name: CE BAER II Rep #: [id number] : 1985 39 From: Ari Walls DO PCP: Dr. Elizabeth Argueta, DO Status:DEP ER Location: ED HPI History of Present Illness Chief Complaint: Cellulitis Informant: patient Onset/Context/Timing Onset: Days (5) Context: Gradual Onset Timing: Continuous Quality: Radiating Location: Left foot over the fifth toe and proximal metatarsals. Worsened by: Movement Relieved by: Antibiotics Narrative Narrative: Patient presents with redness and swelling to his left foot that has been getting worse over the past 5 days. Patient states he initially went to [facility] and was diagnosed with athlete's foot. Patient [...] any weakness. Patient describes his pain as radiating. Patient states it has been constant. Patient states the antibiotics are starting to help with the pain. [facility] Medical History Laceration Obsessive compulsive disorder Depression [...] 0.400 Krunal (more content not included)... Normal [facility] Eosinophil percentageOrdered By: Ari Walls on 03-16-2025 Eosinophils/100 WBC (Bld) 2.4 % 0-5 [facility] Erythrocyte distribution wid th (RBC) [Ratio]Ordered By: Ari Walls on 03-16-2025 Erythrocyte distribution width (RBC) [Entitic vol] 38.7 fL 35.1-43.9 [facility] Erythrocyte distribution wid th ratioOrdered By: Ari Walls on 03-16-2025 Erythrocyte distribution width (RBC) [Ratio] 12.1 % 11.6-14.6 [facility] Estimation of creatinine randy aranceOrdered By: Ari Walls on 03-16-2025 Estimated Creatinine Clearance Calc 140.25 ml/min 50-250 [facility] GFR/1.73 sq M.predicted mago g non-blacks MDRD (S/P/Bld) [Vol rate/Area]Ordered By: Ari Walls on 03-16-2025 Estimated GFR (MDRD) Non-Af Amer 116 >60 [facility] Comment on above: mL/min/1.73m2 CKD-EP I Creatinine Equation (2020) Gram stainOrdered By: Ari rodriguez on 03-16-2025 Microscopic observation Gram stain Nom (Unsp spec) [facility] Hematocrit Auto (Bld) [Volum e fraction]Ordered By: Ari Walls on 03-16-2025 Hematocrit (Bld) [Volume fraction] 41.9 % 40-54 [facility] Hemoglobin measurementOrdere d By: Ari Walls on 03-16-2025 Hemoglobin (Bld) [Mass/Vol] 15.4 g/dL 13.0-16.5 [facility] Immature granulocytes/100 WB C Auto (Bld)Ordered By: Ari Walls on 03-16-2025 Immature granulocytes/100 WBC (Bld) 0.400 % 0.0-0.9 [facility] Comment on above: IG% - Immature Granu locytes (promyelocytes, myelocytes and metamyelocytes) > 1% indicates that a LEFT SHIFT is Present. Lymphocytes Auto (Unsp spec) [#/Vol]Ordered By: Ari Walls on 03-16-2025 Lymphocytes (Bld) [#/Vol] 2.24 10*3/uL 0.83-4.51 [facility] Lymphocytes/100 WBC Auto (Un sp spec)Ordered By: Ari Walls on 03-16-2025 Lymphocytes/100 WBC (Bld) 26.5 % 19-41 [facility] MCV (mean corpuscular volume ) determinationOrdered By: Ari Walls on 03-16-2025 MCV (RBC) [Entitic vol] 88.0 fL 80-94 [facility] Mean corpuscular hemoglobin (MCH) determinationOrdered By: Ari Walls on 03-16-2025 MCH (RBC) [Entitic mass] 32.4 pg High 27.0-32.0 [facility] Mean corpuscular hemoglobin concentration (MCHC) determinationOrdered By: Ari Walls on 03-16-2025 MCHC (RBC) [Mass/Vol] 36.8 g/dL High 32-36 [facility] Mean platelet volume determi nationOrdered By: Ari Walls on 03-16-2025 Platelet mean volume (Bld) [Entitic vol] 9.5 fL 6.2-12.0 [facility] Monocyte percentageOrdered B y: Ari Walls on 03-16-2025 Monocytes/100 WBC (Bld) 8.5 % 0-10 [facility] Neutrophil percentageOrdered By: Ari Walls on 03-16-2025 Neutrophils/100 WBC (Bld) 61.7 % 47-70 [facility] Nucleated red blood cell per centageOrdered By: Ari Walls on 03-16-2025 Nucleated RBC/100 WBC (Bld) [Ratio] 0 % 0-5 [facility] Platelet countOrdered By: Keith Walls on 03-16-2025 Platelets (Bld) [#/Vol] 211 10*3/uL 150-450 [facility] Potassium (Unsp spec) [Mass/ Vol]Ordered By: Ari Walls on 03-16-2025 Potassium [Moles/Vol] 3.8 mmol/L 3.3-5.1 [facility] RBC Auto (Bld) [#/Vol]Ordere d By: Ari Walls on 03-16-2025 RBC (Bld) [#/Vol] 4.76 10*6/uL 4.6-6.2 [facility] Serum creatinine measurement (mass/volume)Ordered By: Ari Walls on 03-16-2025 Creatinine [Mass/Vol] 0.83 mg/dL 0.70-1.20 [facility] Serum glucose measurement (m ass/volume)Ordered By: Ari Walls on 03-16-2025 Glucose [Mass/Vol] 100 mg/dL High 70-[address] [facility] Serum or plasma calcium carly urement (mass/volume)Ordered By: Ari Walls on 03-16-2025 Calcium [Mass/Vol] 8.5 mg/dL 7.6-11.[address] [facility] Serum or plasma urea nitroge n measurement (mass/volume)Ordered By: Ari Walls on 03-16-2025 Urea nitrogen [Mass/Vol] 16 mg/dL 4-19 [facility] Sodium levelOrdered By: Ari Walls on 03-16-2025 Sodium [Moles/Vol] 137 mmol/L 133-[address] [facility] White blood cell (WBC) count Ordered By: Ari Walls on 03-16-2025 WBC (Bld) [#/Vol] 8.5 10*3/uL 4.4-11.[address] [facility] CRPon 03-15-2025 C-Reactive Protein 0.7 mg/dL High 0.0-0.3 [facility] Comment on above: Performed By: #### 1 10704, ESR, TSHR, PBNP, CRP #### [place] [address] [place] [address] ESRon 03-15-2025 Erythrocyte Sed Rate 4 mm/hr Normal 0-15 [facility] Comment on above: Performed By: #### 1 [address]273, ESR, TSHR, PBNP, CRP #### [place] [address] [place] [address] Emergency Department Summary on 03-15-2025 Emergency Department Summary [facility] Medical Records Department [address] [place] [address] Emergency Department Summary 03/15/25 MR#: [id number] Acct: [id number] Name: CE BAER MELANIE Rep #: [id number] : 1985 39 From: Claude Cortes DO [...] foot. He states that he went to [facility] and was diagnosed with athlete's foot [...] primary care appointment at 2:00 this afternoon. [facility] Medical History Laceration Obsessive compulsive disorder Depression [...] follow commands knew that he was at [facility] years 2024. Sensation grossly intact in the [...] possible sesamoid formation, clinically correlate. Reading Location: [facility] Discharge Plan Triage Chief Complaint: Lower Extremity Injury ED Provider: Claude Cortes Dx/Rx/DC Orders Clinical Impression: Foot pain, left Prescriptions: No Action NK Primary Care Provider: Elizabeth Argueta Referrals: Care Physician,No Primary [Non-Staff] - Print Language: Thai Disposition Disposition: Elopement Discharge Date/Time: 03/15/25 05:53 What to (more content not included)... Normal [facility] Foot min 3 Viewson 5 Foot min 3 Views [facility] Services [address] [place] [address] Foot min 3 Views MR#: [id number] Acct: [id number] Name: CE BAER MELANIE Rep #: [id number] : 1985 M 39 From: Merrill Reyna MD PCP: Dr. Elizabeth Argueta, Status: REG ER Study: Foot min 3 Views Date of Exam: 03/15/25 Exam# [id number] Ordering Dr: Claude Cortes DO EXAM: Foot [...] possible sesamoid formation, clinically correlate. Reading Location: [id number] CC: Dr. Elizabeth Argueta, DO; Dr. Claude Cortes, DO Ged Preparation Teacher: Signed Normal [facility] PBNPon 03-15-2025 Natriuretic peptide B (Bld) [Mass/Vol] 102 pg/mL Normal 0-125 [facility] Comment on above: Result Comment: NT-p roBNP results of less than 300 pg/mL effectively rules out acute congestive heart failure with 99% negative predictive value. Performed By: #### L IP, GFR, CBC, MDW, ANEU, ADIFF, CMP #### [address] [address] TSHRon 03-15-2025 TSH Qn 1.54 m[IU]/L Normal 0.36-3.74 [facility] Comment on above: Performed By: #### L IP, GFR, CBC, MDW, ANEU, ADIFF, CMP #### [address] [address] CTPCRon 03-14-2025 C. trachomatis Interp Normal See CT Interp N [facility] Comment on above: Result Comment: C. t rachomatis DNA not detected. Specimen is presumptive negative for C. trachomatis. A negative result does not preclude C. trachomatis infection because results depend on adequate specimen collection, absence of inhibitors, and sufficient DNA to be detected. See CT Interp N Performed By: #### L IP, GFR, CBC, MDW, ANEU, ADIFF, CMP #### [address] [address] C.trachomatis PCR Negative Normal Negative [facility] Comment on above: Result Comment: Mole neelaar (PCR) assay performed on the [employer] 4800 system. Performed By: #### L IP, GFR, CBC, MDW, ANEU, ADIFF, CMP #### [address] [address] Chlam Source Urine Normal [facility] Comment on above: Performed By: #### L IP, GFR, CBC, MDW, ANEU, ADIFF, CMP #### [address] [address] [id number] 03-14-2025 GC PCR Source Urine Normal [facility] Comment on above: Performed By: #### L IP, GFR, CBC, MDW, ANEU, ADIFF, CMP #### [address] [address] N. gonorrhoeae (PCR) Negative Normal Negative [facility] Comment on above: Result Comment: Mole cular (PCR) assay performed on the [employer] 4800 System. Performed By: #### L IP, GFR, CBC, MDW, ANEU, ADIFF, CMP #### [address] [address] N. gonorrhoeae Interp Normal See NG Interp N [facility] Comment on above: Result Comment: N. g onorrhoeae DNA not detected. Specimen is presumptive negative for N. gonorrhoeae. A negative result does not preclude Neisseria gonorrhoeae infection because results depend on adequate specimen collection, absence of inhibitors, and sufficient DNA to be detected. See NG Interp N Performed By: #### L IP, GFR, CBC, MDW, ANEU, ADIFF, CMP #### [address] [address] .Auto Diffon 03-12-2025 Basophil, Absolute 0.1 10 3/mcL Normal 0.0-0.3 [facility] Comment on above: Performed By: #### L IP, GFR, CBC, MDW, ANEU, ADIFF, CMP #### [address] [address] Basophils/100 WBC (Bld) 0.8 % Normal 0.0-2.5 [facility] Comment on above: Performed By: #### L IP, GFR, CBC, MDW, ANEU, ADIFF, CMP #### [address] [address] Eosinophil, Absolute 0.2 10 3/mcL Normal 0.0-0.7 [facility] Comment on above: Performed By: #### L IP, GFR, CBC, MDW, ANEU, ADIFF, CMP #### [address] [address] Eosinophils/100 WBC (Bld) 1.9 % Normal 0.0-6.0 [facility] Comment on above: Performed By: #### L IP, GFR, CBC, MDW, ANEU, ADIFF, CMP #### [address] [address] Lymphocyte, Absolute 2.5 10 3/mcL Normal 0.9-4.3 [facility] Comment on above: Performed By: #### L IP, GFR, CBC, MDW, ANEU, ADIFF, CMP #### [address] [address] Lymphocytes/100 WBC (Bld) 28.4 % Normal 20.0-40.0 [facility] Comment on above: Performed By: #### L IP, GFR, CBC, MDW, ANEU, ADIFF, CMP #### [address] [address] Monocyte, Absolute 0.6 10 3/mcL Normal 0.1-1.4 [facility] Comment on above: Performed By: #### L IP, GFR, CBC, MDW, ANEU, ADIFF, CMP #### [address] [address] Monocytes/100 WBC (Bld) 7.0 % Normal 2.0-13.0 [facility] Comment on above: Performed By: #### L IP, GFR, CBC, MDW, ANEU, ADIFF, CMP #### [address] [address] Neutrophils/100 WBC (Bld) 61.9 % Normal 50.0-75.0 [facility] Comment on above: Performed By: #### L IP, GFR, CBC, MDW, ANEU, ADIFF, CMP #### [address] [address] .GFRon 03-12-2025 Estimated Glomerular Filtration Rate 113 ml/min/1.73sqm Normal [facility] Comment on above: Result Comment: Stages of [...] GFR, CBC, MDW, ANEU, ADIFF, CMP #### [address] [address] .MDWon 03-12-2025 Monocyte Distribution Width 16.44 Normal 0.00-20.00 [facility] Comment on above: Result Comment: For ED adult patients suspected of sepsis, MDW<=20.0 does not rule out sepsis or risk of sepsis Performed By: #### L IP, GFR, CBC, MDW, ANEU, ADIFF, CMP #### [address] [address] .NEUABSon 03-12-2025 Neutrophil, Absolute 5.4 10 3/mcL Normal 2.3-8.1 [facility] Comment on above: Performed By: #### L IP, GFR, CBC, MDW, ANEU, ADIFF, CMP #### [address] [address] CBCon 03-12-2025 Erythrocyte distribution width (RBC) [Ratio] 13.0 % Normal 11.5-15.5 [facility] Comment on above: Performed By: #### L IP, GFR, CBC, MDW, ANEU, ADIFF, CMP #### [address] [address] Hematocrit (Bld) [Volume fraction] 49.0 % Normal 40.0-52.0 [facility] Comment on above: Performed By: #### L IP, GFR, CBC, MDW, ANEU, ADIFF, CMP #### [address] [address] Hgb 17.4 G/dL Normal 13.0-17.5 [facility] Comment on above: Performed By: #### L IP, GFR, CBC, MDW, ANEU, ADIFF, CMP #### [address] [address] MCH (RBC) [Entitic mass] 32.4 pg Normal 27.0-33.0 [facility] Comment on above: Performed By: #### L IP, GFR, CBC, MDW, ANEU, ADIFF, CMP #### [address] [address] MCHC 35.6 G/dL Normal 32.0-36.0 [facility] Comment on above: Performed By: #### L IP, GFR, CBC, MDW, ANEU, ADIFF, CMP #### [address] [address] MCV (RBC) [Entitic vol] 91.1 fL Normal 81.0-100.0 [facility] Comment on above: Performed By: #### L IP, GFR, CBC, MDW, ANEU, ADIFF, CMP #### [address] [address] Platelet 202 10 3/mcL Normal 150-450 [facility] Comment on above: Performed By: #### L IP, GFR, CBC, MDW, ANEU, ADIFF, CMP #### [address] [address] Platelet mean volume (Bld) [Entitic vol] 7.8 fL Normal 6.4-10.5 [facility] Comment on above: Performed By: #### L IP, GFR, CBC, MDW, ANEU, ADIFF, CMP #### [address] [address] RBC 5.38 10 6/mcL Normal 4.50-6.00 [facility] Comment on above: Performed By: #### L IP, GFR, CBC, MDW, ANEU, ADIFF, CMP #### [address] [address] WBC 8.7 10 3/mcL Normal 4.5-10.8 [facility] Comment on above: Performed By: #### L IP, GFR, CBC, MDW, ANEU, ADIFF, CMP #### [address] [address] CMPon 03-12-2025 Albumin Level 4.1 G/dL Normal 3.5-5.0 [facility] Comment on above: Performed By: #### L IP, GFR, CBC, MDW, ANEU, ADIFF, CMP #### [address] [address] Albumin/Globulin [Mass ratio] 1.3 {ratio} Normal 1.1-2.5 [facility] Comment on above: Performed By: #### L IP, GFR, CBC, MDW, ANEU, ADIFF, CMP #### [address] [address] ALP [Catalytic activity/Vol] 58 U/L Normal 40-135 [facility] Comment on above: Performed By: #### L IP, GFR, CBC, MDW, ANEU, ADIFF, CMP #### [address] [address] ALT [Catalytic activity/Vol] 19 U/L Normal 16-63 [facility] Comment on above: Performed By: #### L IP, GFR, CBC, MDW, ANEU, ADIFF, CMP #### [address] [address] AST [Catalytic activity/Vol] 24 U/L Normal 10-40 [facility] Comment on above: Performed By: #### L IP, GFR, CBC, MDW, ANEU, ADIFF, CMP #### [address] [address] Bili Total 0.4 mg/dL Normal 0.2-1.0 [facility] Comment on above: Result Comment: Use of this assay is not recommended for patients undergoing treatment with eltrombopag due to the potential for falsely elevated results. Performed By: #### L IP, GFR, CBC, MDW, ANEU, ADIFF, CMP #### [address] [address] BUN/Creatinine Ratio 12 ratio Normal 7-27 [facility] Comment on above: Performed By: #### L IP, GFR, CBC, MDW, ANEU, ADIFF, CMP #### [address] [address] Calcium [Mass/Vol] 8.8 mg/dL Normal 8.4-10.2 [facility] Comment on above: Performed By: #### L IP, GFR, CBC, MDW, ANEU, ADIFF, CMP #### [address] [address] Chloride [Moles/Vol] 104 mmol/L Normal 98-107 [facility] Comment on above: Performed By: #### L IP, GFR, CBC, MDW, ANEU, ADIFF, CMP #### [address] [address] CO2 [Moles/Vol] 27 mmol/L Normal 22-29 [facility] Comment on above: Performed By: #### L IP, GFR, CBC, MDW, ANEU, ADIFF, CMP #### [address] [address] Creatinine [Mass/Vol] 0.89 mg/dL Normal 0.70-1.30 [facility] Comment on above: Result Comment: Test ing performed on Siemens Dimension EXL analyzer using a modified kinetic Sybil technique. Performed By: #### L IP, GFR, CBC, MDW, ANEU, ADIFF, CMP #### [address] [address] Electrolyte Balance 7.0 mEq/L Normal 4.0-15.0 [facility] Comment on above: Performed By: #### L IP, GFR, CBC, MDW, ANEU, ADIFF, CMP #### [address] [address] Globulin 3.1 G/dL Normal 1.5-3.8 [facility] Comment on above: Performed By: #### L IP, GFR, CBC, MDW, ANEU, ADIFF, CMP #### [address] [address] Glucose [Mass/Vol] 115 mg/dL High 70-105 [facility] Comment on above: Performed By: #### L IP, GFR, CBC, MDW, ANEU, ADIFF, CMP #### [address] [address] Potassium [Moles/Vol] 4.1 mmol/L Normal 3.5-5.1 [facility] Comment on above: Performed By: #### L IP, GFR, CBC, MDW, ANEU, ADIFF, CMP #### [address] [address] Sodium [Moles/Vol] 138 mmol/L Normal 136-145 [facility] Comment on above: Performed By: #### L IP, GFR, CBC, MDW, ANEU, ADIFF, CMP #### [address] [address] Total Protein 7.2 G/dL Normal 6.4-8.2 [facility] Comment on above: Performed By: #### L IP, GFR, CBC, MDW, ANEU, ADIFF, CMP #### [address] [address] Urea nitrogen [Mass/Vol] 11 mg/dL Normal 7-18 [facility] Comment on above: Performed By: #### L IP, GFR, CBC, MDW, ANEU, ADIFF, CMP #### [address] [place] [address], [place] [address] CT ABD/PELVIS W/ IV CONTRAST ONLYon 03-12-2025 [...] HISTORY: Reason for Exam: abdominal pain, rectal [id number]^ FINDINGS: There is some motion artifact in [...] 03/12/2025 4:24:44 PM Ordering Provider: ALLIE Walton [facility] LIPon 03-12-2025 Lipase Level 93 U/L High 16-77 [facility] Comment on above: Performed By: #### L IP, GFR, CBC, MDW, ANEU, ADIFF, CMP #### [address] [address] UAon 03-12-2025 Color (U) Yellow Normal [facility] Comment on above: Performed By: #### L IP, GFR, CBC, MDW, ANEU, ADIFF, CMP #### [place] [address] Glucose (U) [Mass/Vol] Negative Normal Negative [facility] Comment on above: Performed By: #### L IP, GFR, CBC, MDW, ANEU, ADIFF, CMP #### [address] [address] Ketones Ql (U) Negative Normal Negative [facility] Comment on above: Performed By: #### L IP, GFR, CBC, MDW, ANEU, ADIFF, CMP #### [address] [address] UA Appear Clear Normal Clear [facility] Comment on above: Performed By: #### L IP, GFR, CBC, MDW, ANEU, ADIFF, CMP #### [address] [address] UA Blood Trace Abnormal Negative [facility] Comment on above: Performed By: #### L IP, GFR, CBC, MDW, ANEU, ADIFF, CMP #### [address] [address] UA Leuk Est Negative Normal Negative [facility] Comment on above: Performed By: #### L IP, GFR, CBC, MDW, ANEU, ADIFF, CMP #### [address] [address] UA Nitrite Negative Normal Negative [facility] Comment on above: Performed By: #### L IP, GFR, CBC, MDW, ANEU, ADIFF, CMP #### [address] [address] UA pH 5.5 Normal 5.0 - 8.0 [facility] Comment on above: Performed By: #### L IP, GFR, CBC, MDW, ANEU, ADIFF, CMP #### [address] [address] UA Protein Negative Normal Negative [facility] Comment on above: Performed By: #### L IP, GFR, CBC, MDW, ANEU, ADIFF, CMP #### [place] [address] UA Spec Grav 1.010 Abnormal 1.015-1.025 [facility] Comment on above: Performed By: #### L IP, GFR, CBC, MDW, ANEU, ADIFF, CMP #### [place] [address] UA Specimen Type Clean Catch Normal [facility] Comment on above: Performed By: #### L IP, GFR, CBC, MDW, ANEU, ADIFF, CMP #### [place] [address] UA Urobilinogen 0.2 E.U./dL Normal 0.2-1.0 [facility] Comment on above: Performed By: #### L IP, GFR, CBC, MDW, ANEU, ADIFF, CMP #### [place] [address] Urobilinogen (U) [Mass/Vol] Negative Normal Negative [facility] Comment on above: Performed By: #### L IP, GFR, CBC, MDW, ANEU, ADIFF, CMP #### [place] [address] US SCROTUM CONTENTSon 2024 US SCROTUM CONTENTS [...] Sign Date: 03/12/2025 5:28:09 PM Ordering Provider: [facility] XR CHEST 1 VIEWon 03-12-2025 XR CHEST 1 VIEW ORIGINAL EXAMINATION: ONE XRAY VIEW OF THE CHEST03/12/2025 4:12 pm CHEST ONE VIEW AP/PA COMPARISON: None HISTORY: ORDERING SYSTEM PROVIDED HISTORY: Reason for Exam: [id number]^ FINDINGS: Lines/Tubes: None Lungs: No evidence of [...] Sign Date: 03/12/2025 4:18:34 PM Ordering Provider: [facility] XR CHEST 2V FRONTAL/LATon XR CHEST 2V [...] tissues: Unremarkable. IMPRESSION: No acute radiographic abnormality. Ged Preparation Teacher: PSCB Transcribe Date/Time: Jan 13 2025 7:11P Dictated by : JENNIFER OBANDO MD This examination was interpreted and the report reviewed and electronically signed by: JENNIFER OBANDO MD on Jan 13 2025 7:11PM EST [id number] Normal [facility] XR Chest PA and Lateralon IMPRESSION: No acute radiographic abnormality. Ged Preparation Teacher: PSCLISNR Transcribe Date/Time: Jan 13 2025 7:11P Dictated [...] soft tissues: Unremarkable. DIVISION OF RADIOLOGY [facility] * * *Final Report* * [...] Unremarkable. IMPRESSION IMPRESSION: No acute radiographic abnormality. Ged Preparation Teacher: PSCB Transcribe Date/Time: Jan 13 2025 7:11P Dictated by : JENNIFER OBANDO MD This examination was interpreted and the report reviewed and electronically signed by: JENNIFER OBANDO MD on Jan 13 2025 7:11PM EST [facility] Radiology Study observation (narrative) [facility] XR Chest PA and LateralOrder ed By: [facility] Provider on 01-13-2025 [facility] BLADDER SCANon 01-12-2025 51ml [facility] [place] Bacteria Ur Culton Bacteria identified Cx Nom (U) CULTURE, URINE: No growth (<1,000 CFU/ml) Normal [facility] Comment on above: Performed By: #### 6 30-4 #### [facility] CLIA [id number] [facility] [place] [address] [place] 01-12-2025 CNOV Office Visit (URCANT ) ----- CE BAER II ([id number]) 1985 M Date Time Provider Department 01/12/25 4:00 PM CE WOOD During your visit today, we recorded the following information about you: Weight Height 95.3 kg 1.753 m Ce Wood MD 01/12/2025 4:25 PM Signed [facility] NEW PATIENT ENCOUNTER Consultation requested by Dr. [...] of Systems LAB No results found for: PSA, PSASC Creatinine Date Value Ref Range Status 03/28/2022 0.87 0.73 - 1.22 mg/dL Final No results found for: UGLUCPOC, UBILIPOC, UKETONPOC, USGPOC, UHBPOC, UPHPOC, UPROPOC, UUROPOC, UNITPOC, UWBCPOC, UCOLPOC, UCLARPOC] MEDICATIONS fexofenadine (VIVI ALLERGY) 180 mg tablet [...] quit age 20. Ht 175.3 cm (5' 9) Wt 95.3 kg (210 lb) BMI 31.01 [...] SCAN [936 (more content not included)... Normal [facility] Emergency Department Summary on 11-28-2024 Emergency Department Summary [facility] Medical Records Department [address] [place] [address] Emergency Department Summary 11/28/24 MR#: [id number] Acct: [id number] Name: CE BAER II Rep #: [id number] : 1985 39 From: Harris Aviles DO PCP: Care Physician,No Primary Status:DEP ER Location: ED HPI History of Present Illness Chief Complaint: Laceration Narrative Narrative: 39-year-old male presents with a laceration to his left index finger. He was cutting a bagel with a bread knife when it slipped and cut his finger. Bleeding is controlled. Last tetanus unknown. [facility] Medical History (Updated 11/28/24 @ 11:19 by [...] and Lidocaine Irrigated (ml): 200 Number of Sutures/Bhargav: 3 Suture Information: Ethilon and 5-0 [facility] [place] Narrative Medical decision making narrative: Patient has a 1.5 cm laceration to his left index finger. He is neurovascularly intact and has no tendon injury. There is no indication for x-rays. See procedure note???it was closed with 3 simple erupted sutures. Tetanus updated. Wound care instructions given. Discharged home. [facility] Narrative Medical decision making narrative: Patient [...] Decison Making local wound care by physician assistant farm operations manager. Please see their note. Stitches to be [...] pus, fever or increased pain. Print Language: Thai Disposition Disposition: Home, Self Care Discharge Date/Time: 11/28/24 11:28 What to do if you have Problems (more content not included)... Normal [facility] XR CHEST 2V FRONTAL/LATon [facility] XR Chest PA and Lateralon IMPRESSION: No acute radiographic abnormality. Ged Preparation Teacher: [employer] Transcribe Date/Time: Nov 13 2022 11:03A Dictated by : ALIE HENNESSY DO This examination was interpreted and the report reviewed and electronically signed by: ALIE HENNESSY DO on Nov 13 2022 11:03AM [facility] DIVISION OF RADIOLOGY * * *Final Report* [...] soft tissues: Unremarkable. DIVISION OF RADIOLOGY Provider, [facility] Jackie [facility] - 11/13/2022 * * *Final Report* * [...] Unremarkable. IMPRESSION IMPRESSION: No acute radiographic abnormality. Ged Preparation Teacher: PSCB Transcribe Date/Time: Nov 13 2022 11:03A Dictated by : ALIE HENNESSY DO This examination was interpreted and the report reviewed and electronically signed by: ALIE HENNESSY DO on Nov 13 2022 11:03AM EST [facility] Radiology Study observation (narrative) [facility] XR Chest PA and LateralOrder ed By: Ccf Provider on 11-13-2022 [facility] No Panel Informationon 04-02 [facility] Vital Signs Date Time Vital Sign Value Performing Clinician Facility 10-06-2025 01:00-0500 Heart rate 73 /min Roberto Che MD Work Phone: [facility] 10-06-2025 01:00-0500 Respiratory rate 17 /min Roberto Che MD Work Phone: [facility] 10-06-2025 01:00-0500 SaO2% (BldA) [Mass fraction] 96 % Roberto Che MD Work Phone: [facility] 10-06-2025 01:00-0500 Systolic blood pressure 138 mm[Hg] Roberto Che MD Work Phone: [facility] 10-05-2025 20:58-0500 Body temperature 98.1 [degF] Roberto Che MD Work Phone: [facility] 10-05-2025 10:37-0500 Body height 177.8 cm Joy Will MD Work Phone: [facility] 10-05-2025 10:37-0500 Body mass index (BMI) [Ratio] 32.86 kg/m2 Joy Will MD Work Phone: [facility] 10-05-2025 10:37-0500 Body weight 103.87 kg Joy Will MD Work Phone: [facility] 10-05-2025 10:37-0500 Diastolic blood pressure 93 mm[Hg] Joy Will MD Work Phone: [facility] 10-05-2025 10:37-0500 Heart rate 83 /min Joy Will MD Work Phone: [facility] 10-05-2025 10:37-0500 Systolic blood pressure 135 mm[Hg] Joy Will MD Work Phone: [facility] 09-29-2025 17:17-0400 Diastolic blood pressure 89 mm[Hg] Garth Aguilar DO Work Phone: [facility] 09-29-2025 17:17-0400 Heart rate 67 /min Garth Aguilar DO Work Phone: [facility] 09-29-2025 17:17-0400 Respiratory rate 18 /min Garth Aguilar DO Work Phone: [facility] 09-29-2025 17:17-0400 SaO2% (BldA) [Mass fraction] 96 % Garth Aguilar DO Work Phone: [facility] 09-29-2025 17:17-0400 Systolic blood pressure 139 mm[Hg] Garth Aguilar DO Work Phone: [facility] 09-29-2025 14:12-0400 Body height 175.3 cm Garth Aguilar DO Work Phone: [facility] 09-29-2025 14:12-0400 Body mass index (BMI) [Ratio] 35.44 kg/m2 Garth Aguilar DO Work Phone: [facility] 09-29-2025 14:12-0400 Body temperature 99 [degF] Garth Aguilar DO Work Phone: [facility] 09-29-2025 14:12-0400 Body weight 108.86 kg Garth Aguilar DO Work Phone: [facility] 07-29-2025 13:23-0400 Body height 175.3 cm Carmen Hughes MD Work Phone: [facility] 07-29-2025 13:23-0400 Body mass index (BMI) [Ratio] 31.79 kg/m2 Carmen Hughes MD Work Phone: [facility] 07-29-2025 13:23-0400 Body temperature 97.9 [degF] Carmen Hughes MD Work Phone: [facility] 07-29-2025 13:23-0400 Body weight 97.66 kg Carmen Hughes MD Work Phone: [facility] 07-29-2025 13:23-0400 Diastolic blood pressure 72 mm[Hg] Carmen Hughes MD Work Phone: [facility] 07-29-2025 13:23-0400 Heart rate 65 /min Carmen Hughes MD Work Phone: [facility] 07-29-2025 13:23-0400 SaO2% (BldA) [Mass fraction] 98 % Carmen Hughes MD Work Phone: [facility] 07-29-2025 13:23-0400 Systolic blood pressure 137 mm[Hg] Carmen Hughes MD Work Phone: [facility] 07-28-2025 13:20-0400 Body height 174 cm Kobi Short MD Work Phone: [facility] 07-28-2025 13:20-0400 Body mass index (BMI) [Ratio] 32.07 kg/m2 Kobi Short MD Work Phone: [facility] 07-28-2025 13:20-0400 Body weight 97.07 kg Kobi Short MD Work Phone: [facility] 07-28-2025 13:20-0400 Heart rate 68 /min Kobi Short MD Work Phone: [facility] 07-18-2025 23:30-0400 Diastolic blood pressure 81 mm[Hg] Chloé Ruggiero DO Work Phone: [facility] 07-18-2025 23:30-0400 Heart rate 56 /min Chloé Ruggiero DO Work Phone: 8(261)[phone] [place] [address] 07-18-2025 23:30-0400 Respiratory rate 18 /min Chloé Ruggiero DO Work Phone: 3(027)870-605[address] [place] [address] 07-18-2025 23:30-0400 SaO2% (BldA) [Mass fraction] 94 % Chloé Ruggiero DO Work Phone: [facility] 07-18-2025 23:30-0400 Systolic blood pressure 120 mm[Hg] Chloé Ruggiero DO Work Phone: [facility] 07-18-2025 20:29-0400 Body temperature 98.1 [degF] Chloé Ruggiero DO Work Phone: [facility] 07-18-2025 20:28-0400 Body height 175.3 cm Chloé Ruggiero DO Work Phone: [facility] 07-18-2025 20:28-0400 Body mass index (BMI) [Ratio] 32.34 kg/m2 Chloé Ruggiero DO Work Phone: [facility] 07-18-2025 20:28-0400 Body weight 99.34 kg Chloé Ruggiero DO Work Phone: [facility] 07-11-2025 08:48-0400 Body height 175.3 cm Joycelyn Ariza MD Work Phone: [facility] 07-11-2025 08:48-0400 Body mass index (BMI) [Ratio] 32.34 kg/m2 Joycelyn Ariza MD Work Phone: [facility] 07-11-2025 08:48-0400 Body weight 99.34 kg Joycelyn Ariza MD Work Phone: [facility] 07-11-2025 08:48-0400 Diastolic blood pressure 86 mm[Hg] Joycelyn Ariza MD Work Phone: [facility] 07-11-2025 08:48-0400 Heart rate 60 /min Joycelyn Ariza MD Work Phone: [facility] 07-11-2025 08:48-0400 Respiratory rate 18 /min Joycelyn Ariza MD Work Phone: [facility] 07-11-2025 08:48-0400 SaO2% (BldA) [Mass fraction] 98 % Joycelyn Ariza MD Work Phone: [facility] 07-11-2025 08:48-0400 Systolic blood pressure 138 mm[Hg] Joycelyn Ariza MD Work Phone: [facility] 07-04-2025 13:04-0400 Body height 175.3 cm Hardik Anna MD Work Phone: [facility] 07-04-2025 13:04-0400 Body mass index (BMI) [Ratio] 32.25 kg/m2 Hardik Signs Work Phone: [facility] 07-04-2025 13:04-0400 Body temperature 97.2 [degF] Hardik Signs Work Phone: [facility] 07-04-2025 13:04-0400 Body weight 99.07 kg Hardik Signs Work Phone: [facility] 07-04-2025 13:04-0400 Diastolic blood pressure 72 mm[Hg] Hardik Anna MD Work Phone: [facility] 07-04-2025 13:04-0400 Heart rate 62 /min Hardik Anna MD Work Phone: [facility] 07-04-2025 13:04-0400 SaO2% (BldA) [Mass fraction] 99 % Hadrik Anna MD Work Phone: [facility] 07-04-2025 13:04-0400 Systolic blood pressure 128 mm[Hg] Hardik Anna MD Work Phone: [facility] 06-27-2025 10:48-0400 Body height 175.3 cm Scott Santamaria MD Work Phone: [facility] 06-27-2025 10:48-0400 Body mass index (BMI) [Ratio] 32.34 kg/m2 Scott Santamaria MD Work Phone: [facility] 06-27-2025 10:48-0400 Body weight 99.34 kg Scott Santamaria MD Work Phone: [facility] 06-27-2025 10:48-0400 Diastolic blood pressure 78 mm[Hg] Scott Santamaria MD Work Phone: [facility] 06-27-2025 10:48-0400 Heart rate 92 /min Scott Santamaria MD Work Phone: [facility] 06-27-2025 10:48-0400 Systolic blood pressure 137 mm[Hg] Scott Santamaria MD Work Phone: [facility] 06-22-2025 14:41-0400 Body height 175.3 cm Scott Cuellar APRN - SILVERWARE BUFFING MACHINE OPERATOR Work Phone: [facility] 06-22-2025 14:41-0400 Body mass index (BMI) [Ratio] 32.34 kg/m2 Scott Cuellar APRN - SILVERWARE BUFFING MACHINE OPERATOR Work Phone: [facility] 06-22-2025 14:41-0400 Body temperature 98.4 [degF] Scott Cuellar APRN - SILVERWARE BUFFING MACHINE OPERATOR Work Phone: [facility] 06-22-2025 14:41-0400 Body weight 99.34 kg Scott Cuellar APRN - SILVERWARE BUFFING MACHINE OPERATOR Work Phone: [facility] 06-22-2025 14:41-0400 Diastolic blood pressure 71 mm[Hg] Scott Cuellar HOSPICE MANAGER - SILVERWARE BUFFING MACHINE OPERATOR Work Phone: [facility] 06-22-2025 14:41-0400 Heart rate 76 /min Scott Cuellar HOSPICE MANAGER - SILVERWARE BUFFING MACHINE OPERATOR Work Phone: [facility] 06-22-2025 14:41-0400 Systolic blood pressure 130 mm[Hg] Scott Cuellar HOSPICE MANAGER - SILVERWARE BUFFING MACHINE OPERATOR Work Phone: [facility] 06-15-2025 18:47-0400 Body height 175.3 cm Joycelyn Nelson DO Work Phone: [facility] 06-15-2025 18:47-0400 Body mass index (BMI) [Ratio] 31.01 kg/m2 Joycelyn Nelson DO Work Phone: [facility] 06-15-2025 18:47-0400 Body temperature 98.2 [degF] Joycelyn Nelson DO Work Phone: [facility] 06-15-2025 18:47-0400 Body weight 95.25 kg Joycelyn Nelson DO Work Phone: [facility] 06-15-2025 18:47-0400 Diastolic blood pressure 88 mm[Hg] Joycelyn Nelson DO Work Phone: [facility] 06-15-2025 18:47-0400 Heart rate 96 /min Joycelyn Nelson DO Work Phone: [facility] 06-15-2025 18:47-0400 Respiratory rate 16 /min Joycelyn Nelson DO Work Phone: [facility] 06-15-2025 18:47-0400 SaO2% (BldA) [Mass fraction] 96 % Joycelyn Nelson DO Work Phone: [facility] 06-15-2025 18:47-0400 Systolic blood pressure 143 mm[Hg] Joycelyn Nelson DO Work Phone: [facility] 03-19-2025 04:30-0400 Body temperature 98.2 [degF] No Primary Care Physician [facility] 03-19-2025 04:30-0400 Diastolic blood pressure 88 mm[Hg] No Primary Care Physician [facility] 03-19-2025 04:30-0400 Heart rate 87 /min No Primary Care Physician [facility] 03-19-2025 04:30-0400 Respiratory rate 19 /min No Primary Care Physician [facility] 03-19-2025 04:30-0400 SaO2% (BldA) [Mass fraction] 97 % No Primary Care Physician [facility] 03-19-2025 04:30-0400 Systolic blood pressure 156 mm[Hg] No Primary Care Physician [facility] 03-19-2025 04:22-0400 Body height 175.26 cm No Primary Care Physician [facility] 03-19-2025 04:22-0400 Body mass index (BMI) [Ratio] 31.6 kg/m2 No Primary Care Physician [facility] 03-19-2025 04:22-0400 Body weight 97 kg No Primary Care Physician [facility] 03-16-2025 17:03-0400 Body temperature 98.3 [degF] No Primary Care Physician [facility] 03-16-2025 17:03-0400 Diastolic blood pressure 86 mm[Hg] No Primary Care Physician [facility] 03-16-2025 17:03-0400 Heart rate 74 /min No Primary Care Physician [facility] 03-16-2025 17:03-0400 Respiratory rate 14 /min No Primary Care Physician [facility] 03-16-2025 17:03-0400 SaO2% (BldA) [Mass fraction] 97 % No Primary Care Physician [facility] 03-16-2025 17:03-0400 Systolic blood pressure 146 mm[Hg] No Primary Care Physician [facility] 03-16-2025 15:35-0400 Body height 175.26 cm No Primary Care Physician [facility] 03-16-2025 15:35-0400 Body mass index (BMI) [Ratio] 31.6 kg/m2 No Primary Care Physician [facility] 03-16-2025 15:35-0400 Body weight 97.38 kg No Primary Care Physician [facility] 03-15-2025 04:53-0400 Body height 175.26 cm No Primary Care Physician [facility] 03-15-2025 04:53-0400 Body temperature 97.5 [degF] No Primary Care Physician [facility] 03-15-2025 04:53-0400 Diastolic blood pressure 86 mm[Hg] No Primary Care Physician [facility] 03-15-2025 04:53-0400 Heart rate 120 /min No Primary Care Physician [facility] 03-15-2025 04:53-0400 Respiratory rate 20 /min No Primary Care Physician [facility] 03-15-2025 04:53-0400 SaO2% (BldA) [Mass fraction] 96 % No Primary Care Physician [facility] 03-15-2025 04:53-0400 Systolic blood pressure 154 mm[Hg] No Primary Care Physician [facility] 01-12-2025 15:53-0500 Body height 175.3 cm Ce Wood MD Work Phone: [facility] 01-12-2025 15:53-0500 Body mass index (BMI) [Ratio] 31.01 kg/m2 Ce Wood MD Work Phone: [facility] 01-12-2025 15:53-0500 Body weight 95.25 kg Ce Wood MD Work Phone: [facility] 01-12-2025 12:08-[address] AUTUMN ENRIQUEZ MD [facility] 01-12-2025 12:08-[address] AUTUMN ENRIQUEZ MD [facility] 01-12-2025 12:08-0500 Body temperature 98.42 [degF] DR AUTUMN ENRIQUEZ MD [facility] 01-12-2025 12:08-0500 Diastolic Blood Pressure Non-Invasive 80 mm[Hg] DR AUTUMN ENRIQUEZ MD [facility] 01-12-2025 12:08-0500 Heart rate 74 /min DR AUTUMN ENRIQUEZ MD [facility] 01-12-2025 12:08-0500 Respiratory rate 18 /min DR AUTUMN ENRIQUEZ MD [facility] 01-12-2025 12:08-0500 Systolic Blood Pressure Non-Invasive 150 mm[Hg] DR AUTUMN ENRIQUEZ MD [facility] 11-28-2024 10:25-0500 Body mass index (BMI) [Ratio] 29.5 kg/m2 No Primary Care Physician [facility] 11-28-2024 10:25-0500 Body temperature 96.7 [degF] No Primary Care Physician [facility] 11-28-2024 10:25-0500 Body weight 90.71 kg No Primary Care Physician [facility] 11-28-2024 10:25-0500 Diastolic blood pressure 87 mm[Hg] No Primary Care Physician [facility] 11-28-2024 10:25-0500 Heart rate 59 /min No Primary Care Physician [facility] 11-28-2024 10:25-0500 Respiratory rate 20 /min No Primary Care Physician [facility] 11-28-2024 10:25-0500 SaO2% (BldA) [Mass fraction] 100 % No Primary Care Physician [facility] 11-28-2024 10:25-0500 Systolic blood pressure 141 mm[Hg] No Primary Care Physician [facility] 07-29-2024 14:31-0400 Body height 174 cm Marcos Rohit HOSPICE MANAGER.SILVERWARE BUFFING MACHINE OPERATOR Work Phone: [facility] 07-29-2024 14:31-0400 Body mass index (BMI) [Ratio] 32.37 kg/m2 Marcos Rohit HOSPICE MANAGER.SILVERWARE BUFFING MACHINE OPERATOR Work Phone: [facility] 07-29-2024 14:31-0400 Body weight 98 kg Marcos Rohit HOSPICE MANAGER.SILVERWARE BUFFING MACHINE OPERATOR Work Phone: [facility] 07-29-2024 14:31-0400 Diastolic blood pressure 81 mm[Hg] Marcos Rohit HOSPICE MANAGER.SILVERWARE BUFFING MACHINE OPERATOR Work Phone: [facility] 07-29-2024 14:31-0400 Heart rate 65 /min Marcos Rohit HOSPICE MANAGER.SILVERWARE BUFFING MACHINE OPERATOR Work Phone: [facility] 07-29-2024 14:31-0400 Systolic blood pressure 126 mm[Hg] Marcos Bee HOSPICE MANAGER.SILVERWARE BUFFING MACHINE OPERATOR Work Phone: [facility] 11-13-2022 10:41-0500 Body temperature 99 [degF] Lesli Athy PA-C Work Phone: [facility] 11-13-2022 10:41-0500 Body weight 94.8 kg Lesli Athy PA-C Work Phone: [facility] 11-13-2022 10:41-0500 Diastolic blood pressure 80 mm[Hg] Lesli Athy PA-C Work Phone: [facility] 11-13-2022 10:41-0500 Heart rate 98 /min Lesli Athy PA-C Work Phone: [facility] 11-13-2022 10:41-0500 Respiratory rate 16 /min Lesli Athy PA-C Work Phone: [facility] 11-13-2022 10:41-0500 SaO2% (BldA) [Mass fraction] 97 % Lesli Athy PA-C Work Phone: [facility] 11-13-2022 10:41-0500 Systolic blood pressure 128 mm[Hg] Lesli Athy PA-C Work Phone: [facility] 08-10-2022 00:11-0400 Body temperature 98.8 [degF] [facility] Work Phone: 08-10-2022 00:11-0400 Diastolic blood pressure 88 mm[Hg] [facility] Work Phone: 08-10-2022 00:11-0400 Heart rate 74 /min [facility] Work Phone: 08-10-2022 00:11-0400 Respiratory rate 15 /min [facility] Work Phone: 08-10-2022 00:11-0400 SaO2% (BldA) [Mass fraction] 99 % [facility] Work Phone: 08-10-2022 00:11-0400 Systolic blood pressure 144 mm[Hg] [facility] Work Phone: 08-09-2022 23:21-0400 Body height 172.72 cm [facility] Work Phone: 08-09-2022 23:21-0400 Body mass index (BMI) [Ratio] 33.4 kg/m2 [facility] Work Phone: 08-09-2022 23:21-0400 Body weight 99.79 kg [facility] Work Phone: 07-09-2022 08:39-0400 Body height 175.26 cm [facility] Work Phone: 07-09-2022 08:39-0400 Body mass index (BMI) [Ratio] 30.9 kg/m2 [facility] Work Phone: 07-09-2022 08:39-0400 Body temperature 97.8 [degF] [facility] Work Phone: 07-09-2022 08:39-0400 Body weight 95.16 kg [facility] Work Phone: 07-09-2022 08:39-0400 Diastolic blood pressure 90 mm[Hg] [facility] Work Phone: 07-09-2022 08:39-0400 Heart rate 70 /min [facility] Work Phone: 07-09-2022 08:39-0400 Respiratory rate 18 /min [facility] Work Phone: 07-09-2022 08:39-0400 SaO2% (BldA) [Mass fraction] 95 % [facility] Work Phone: 07-09-2022 08:39-0400 Systolic blood pressure 159 mm[Hg] [facility] Work Phone: 04-02-2022 13:39-0400 Diastolic blood pressure 76 mm[Hg] Shahid Moraes MD Work Phone: [facility] 04-02-2022 13:39-0400 Heart rate 59 /min Shahid Moraes MD Work Phone: [facility] 04-02-2022 13:39-0400 Respiratory rate 18 /min Shahid Moraes MD Work Phone: [facility] 04-02-2022 13:39-0400 SaO2% (BldA) [Mass fraction] 97 % Shaihd Moraes MD Work Phone: [facility] 04-02-2022 13:39-0400 Systolic blood pressure 131 mm[Hg] Shahid Moraes MD Work Phone: [facility] 04-02-2022 13:23-0400 Body temperature 98.49 [degF] Shahid Moraes MD Work Phone: [facility] 04-02-2022 12:32-0400 Body height 172.7 cm Shahid Moraes MD Work Phone: [facility] 04-02-2022 12:32-0400 Body weight 96.16 kg Shahid Moraes MD Work Phone: [facility] 03-21-2022 15:42-0400 Body height 174 cm Casandra Mcdaniel HOSPICE MANAGER.SILVERWARE BUFFING MACHINE OPERATOR Work Phone: [facility] 03-21-2022 15:42-0400 Body weight 96.16 kg Casandra Mcdaniel HOSPICE MANAGER.SILVERWARE BUFFING MACHINE OPERATOR Work Phone: [facility] 03-21-2022 15:42-0400 Diastolic blood pressure 86 mm[Hg] Casandra Mcdaniel HOSPICE MANAGER.SILVERWARE BUFFING MACHINE OPERATOR Work Phone: [facility] 03-21-2022 15:42-0400 Heart rate 71 /min Casandra Mcdaniel HOSPICE MANAGER.SILVERWARE BUFFING MACHINE OPERATOR Work Phone: [facility] 03-21-2022 15:42-0400 Systolic blood pressure 139 mm[Hg] Casandra Mcdaniel HOSPICE MANAGER.SILVERWARE BUFFING MACHINE OPERATOR Work Phone: [facility] Encounters Encounter Date Encounter Type Care Provider Facility Start: 10-12-2025 ambulatory CITLALI Woo CHANCE Facili ty:[facility] Start: 10-12-2025 ambulatory ROMY LOPES Facili ty:[facility] Start: 10-12-2025 ambulatory ROBERTO CHE Facilmynor ty:[facility] Start: 10-05-2025 End: 10-06-2025 Emergency department patient visit Roberto Che MD Work Phone: [facility] Start: 10-05-2025 End: 10-05-2025 ambulatory [facility] Start: 10-05-2025 End: 10-05-2025 Office outpatient new 20 minutes Joy Will MD Work Phone: [facility] Comment on above: Excessive anger (Monique radha Dx); Primary hypertension; Bipolar 1 disorder (Multi); Tongue pain; Generalized body aches; Muscle cramps Start: 09-29-2025 End: 09-29-2025 Emergency department patient visit Garth Aguilar DO Work Phone: [facility] Comment on above: Palpitations (Primar y Dx); Chest pain, unspecified type Start: 09-27-2025 End: 09-27-2025 ambulatory JOHAN FAUST Facility:[facility] Start: 09-26-2025 End: 09-26-2025 Emergency department patient visit CARMEN HUGHES [facility] Start: 09-23-2025 ambulatory GAYE FORD Facility :[facility] Start: 08-19-2025 ambulatory JESSIE PARKER Start: 08-03-2025 End: 08-03-2025 Telephone encounter Nurse Clinical Work Phone: Dermatology Start: 07-29-2025 End: 07-29-2025 Telephone encounter Hardik Anna MD Work Phone: [facility] Infectious Dis Start: 07-29-2025 End: 07-29-2025 Office outpatient new 45 minutes Carmen Hughes MD Work Phone: [facility] Rheumatology & Internal Medicine Comment on above: Left foot pain (Prim ladonna Dx); Discoloration of skin of foot; Leg pain, bilateral; Candidal skin infection; Bipolar 1 disorder (Multi); Obsessive-compulsive disorder, unspecified type; Allergic reaction to drug, sequela Start: 07-29-2025 End: 07-29-2025 ambulatory CARMEN Leger [facility] Ambulatory Start: 07-28-2025 End: 07-28-2025 Office outpatient new 45 minutes Kobi Short MD Work Phone: [facility] Comment on above: History of adenomato us polyp of colon (Primary Dx); Irritable bowel syndrome with constipation; Bloating Start: 07-28-2025 End: 07-28-2025 ambulatory KOBI [facility] Ambulatory Start: 07-27-2025 ambulatory SCOTT CUELLAR Facility: [facility] Start: 07-25-2025 End: 07-25-2025 Telephone encounter Hardik Anna MD Work Phone: [facility] Infectious Dis Start: 07-22-2025 End: 08-18-2025 Telephone encounter Scott Bartlett CNP Work Phone: [facility] Comment on above: Referral Start: 07-21-2025 End: 07-21-2025 Telephone encounter Mitchel Joe MD Work Phone: [facility] Internal [facility] Comment on above: Pre-visit Planning; Appointment Confirmation Start: 07-20-2025 End: 09-19-2025 Follow-up encounter Scott Bartlett CNP Work Phone: [facility] Comment on above: Vascular US lower ex tremity arterial PVR/BLANK W/O Exercise Start: 07-19-2025 End: 07-19-2025 Subsequent hospital visit by physician Scott Bartlett CNP Work Phone: [facility] Vascular Lab Comment on above: Thromboangiitis obli terans (Buerger's disease) ([facility]) Start: 07-19-2025 End: 07-19-2025 ambulatory [facility] Start: 07-19-2025 End: 07-20-2025 Orders Only Hardik Anna MD Work Phone: [facility] Infectious Disease - [place] Start: 07-18-2025 End: 07-18-2025 Emergency department patient visit Chloé Ruggiero DO Work Phone: [facility] Emergency Medicine Comment on above: Oral thrush (Primary Dx); Thrush; Tinea corporis; Nonintractable headache, unspecified chronicity pattern, unspecified headache type Start: 07-18-2025 End: 09-17-2025 Follow-up encounter Scott Cuellar HOSPICE MANAGER - SILVERWARE BUFFING MACHINE OPERATOR Work Phone: [facility] Comment on above: CT head wo IV contra st Start: 07-16-2025 End: 07-16-2025 Subsequent hospital visit by physician Scott Cuellar HOSPICE MANAGER - SILVERWARE BUFFING MACHINE OPERATOR Work Phone: [facility] CT Imaging Comment on above: 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 Start: 07-16-2025 End: 07-16-2025 ambulatory [facility] Start: 07-15-2025 End: 08-19-2025 Telephone encounter Shelly Izquierdo MD Work Phone: [facility] Comment on above: Request For Order(s) (CT Scans / PVR Testing ) Orders Start: 07-14-2025 End: 07-18-2025 ambulatory Marita Wheat RN [facility] Clinical Communication Start: 07-14-2025 End: 07-18-2025 Patient encounter procedure Marita Wheat RN [facility] Clinical Communication Start: 07-14-2025 End: 07-14-2025 Telephone encounter Hardik Anna MD Work Phone: [facility] Infectious Dis Start: 07-13-2025 End: 07-25-2025 Telephone encounter Shelly Izquierdo MD Work Phone: [facility] Internal [facility] Comment on above: Referral Start: 07-11-2025 End: 09-10-2025 Follow-up encounter Staci Rosario CERTIFIED SURGICAL ASSISTANT [facility] Infecti ous Disease - [place] Comment on above: XR foot 3+ views lef t Start: 07-11-2025 End: 08-11-2025 Telephone encounter Shelly Izquierdo MD Work Phone: [facility] Comment on above: Referral Start: 07-11-2025 End: 07-11-2025 Emergency department patient visit UNKNOWN PROVIDER Facility:[facility] Start: 07-11-2025 End: 07-11-2025 Office outpatient new 45 minutes Joycelyn Ariza MD Work Phone: [facility] Vascular - [place] Comment on above: Leg pain, bilateral (Primary Dx); Bilateral leg paresthesia Start: 07-11-2025 End: 07-11-2025 ambulatory JOYCELYN ARIZA [facility] Start: 07-08-2025 End: 08-04-2025 Telephone encounter Shelly Izquierdo MD Work Phone: [facility] Comment on above: Referral Start: 07-07-2025 End: 07-08-2025 Telephone encounter Hardik Anna MD Work Phone: [facility] Infectious Dis Start: 07-06-2025 End: 07-06-2025 Subsequent hospital visit by physician Hardik Anna MD Work Phone: [facility] X-ray Comment on above: Cellulitis of all to es of left foot; Arthralgia, unspecified joint; Class 1 obesity due to excess calories without serious comorbidity with body mass index (BMI) of 32.0 to 32.9 in adult Start: 07-06-2025 End: 07-06-2025 ambulatory HARDIK ANNA [facility] Start: 07-05-2025 Patient encounter status Shane Anna MD Work Phone: [facility] Start: 07-04-2025 End: 09-03-2025 Follow-up encounter Scott Bartlett CNP Work Phone: [facility] Internal Medicine [facility] Comment on above: Vitamin D Deficiency Screening (Vit D 25), Vitamin B12, Cortisol Start: 07-04-2025 End: 07-04-2025 Office outpatient new 60 minutes Hardik Anna MD Work Phone: [facility]ious Disease [facility] [place] Comment on above: Cellulitis of all to [...] encounter status Hardik Anna MD Work Phone: [facility] Start: 07-04-2025 End: 07-04-2025 ambulatory HARDIK ANNA [facility] Start: 06-29-2025 End: 06-29-2025 Subsequent hospital visit by physician Scott Bartlett CNP Work Phone: [facility] US Imaging Comment on above: Pain in both testicl es Start: 06-29-2025 End: 06-29-2025 ambulatory SCOTT CUELLAR [facility] Start: 06-28-2025 End: 07-01-2025 Orders Only Scott Bartlett CNP Work Phone: [facility] Comment on above: Gastroesophageal ref lux disease, unspecified whether esophagitis present (Primary Dx); Fatigue, unspecified type; Acute gastroenteritis Start: 06-27-2025 End: 08-27-2025 Follow-up encounter Scott Bartlett CNP Work Phone: [facility] Comment on above: TSH, Lipase, Lipid p zack, Additional followed-up results: 4 Start: 06-27-2025 Physical examination Scott duran MD Work Phone: [facility] Start: 06-27-2025 End: 06-27-2025 Office outpatient new 45 minutes Scott Santamaria MD Work Phone: [facility] Urology - [place] Comment on above: Right testicular agustina n (Primary Dx); Pelvic floor dysfunction; Slow transit constipation Start: 06-27-2025 End: 06-27-2025 ambulatory SCOTT SANTAMARIA [facility] Start: 06-24-2025 End: 06-24-2025 Subsequent hospital visit by physician Scott Bartlett CNP Work Phone: [facility] Comment on above: Other microscopic he maturia Start: 06-24-2025 End: 06-24-2025 ambulatory SCOTT CUELLAR [facility] Start: 06-24-2025 End: 06-24-2025 Telephone encounter Scott Bartlett CNP Work Phone: [facility] Central Scheduling Comment on above: Other (Central sched uling) Start: 06-22-2025 End: 06-22-2025 Office outpatient visit 25 minutes Scott Bartlett CNP Work Phone: [facility] Internal Medicine - [facility] Comment on above: Encounter for routin e history and physical exam for male (Primary Dx); Bipolar 1 disorder (HCC); Primary hypertension; Fatigue, unspecified type; Arthralgia, unspecified joint; Acute gastroenteritis; Pain in both testicles; Lipid screening; Other microscopic hematuria Start: 06-22-2025 End: 06-22-2025 Physical examination Scott Bartlett CNP Work Phone: [facility] Advanced ICU Care Start: 06-22-2025 End: 06-22-2025 ambulatory SCOTT CUELLAR [facility] Start: 06-15-2025 End: 06-15-2025 Emergency department patient visit Joycelyn Nelson DO Work Phone: [facility] ED Comment on above: Eloped from emergenc y department (Primary Dx); Aggressive behavior Start: 06-15-2025 End: 06-15-2025 ambulatory JACQUELYN SPURR [facility] Start: 06-13-2025 End: 06-13-2025 ambulatory Sangita Dai Clinical Communication Start: 06-13-2025 End: 06-13-2025 Patient encounter procedure Sangita Dai Clinical Communication Start: 03-19-2025 End: 03-19-2025 Emergency department patient visit No Primary Care Physician -Emergency Department Work Phone: Start: 03-17-2025 End: 03-17-2025 Emergency department patient visit MITRA LEMUS [facility] Start: 03-16-2025 End: 03-16-2025 Emergency department patient visit No Primary Care Physician -Emergency Department Work Phone: Start: 03-15-2025 End: 03-15-2025 ambulatory ELIZABETH ARGUETA DO Facility:[facility] Start: 03-15-2025 End: 03-15-2025 Emergency department patient visit No Primary Care Physician -Emergency Department Work Phone: Start: 03-12-2025 End: 03-12-2025 Emergency department patient visit ELIZABETH ARGUETA DO Facility:[facility] Start: 01-14-2025 End: 01-14-2025 Follow-up encounter Tricia Johnson APRN.CNP Work Phone: [facility] [place] Start: 01-13-2025 End: 01-13-2025 Subsequent hospital visit by physician Shruthi [facility] Work Phone: Radiology Comment on above: Chronic cough [R05.3 ] Start: 01-13-2025 End: 01-26-2025 ambulatory Ce Wood MD Work Phone: Urology Start: 01-13-2025 End: 01-26-2025 Follow-up encounter Ce Wood MD Work Phone: Urology Comment on above: Follow up to appoint [facility], 01/12/25 Start: 01-12-2025 End: 01-12-2025 Patient encounter procedure Ce Wood MD Work Phone: Urology Comment on above: Frequent urination ( Primary Dx); Epididymo-orchitis; Renal stones; Hypertrophy of prostate with urinary obstruction; Incomplete bladder emptying; Recurrent UTI Start: 01-12-2025 End: 01-12-2025 ambulatory CE WOOD Facility:[id number] Start: 01-12-2025 End: 01-12-2025 Emergency department patient visit DR AUTUMN ENRIQUEZ MD [facility] Start: 11-28-2024 End: 11-28-2024 Emergency department patient visit Dr. Harris Aviles DO -Emergency Department Work Phone: Start: 07-29-2024 End: 07-29-2024 Office outpatient visit 15 minutes Marcos Bee APRN.SILVERWARE BUFFING MACHINE OPERATOR Work Phone: [facility] Comment on above: Chronic cough (Prima ry Dx); Contact with or exposure to mold; Environmental allergies; Cigarette nicotine dependence without complication Start: 07-29-2024 End: 07-29-2024 ambulatory Rochelle Francisco RN [facility] Clinical Communication Start: 07-29-2024 End: 07-29-2024 Patient encounter procedure Rochelle Francisco RN [facility] Clinical Communication Start: 07-28-2024 End: 07-28-2024 Telephone encounter Romy Wing APRN.SILVERWARE BUFFING MACHINE OPERATOR Work Phone: [address] [place] [address] Comment on above: Appointment Start: 11-13-2022 End: 11-13-2022 Subsequent hospital visit by physician Shruthi [facility] Work Phone: Radiology Comment on above: Suspected COVID-19 v irus infection [Z20.822] Start: 11-13-2022 End: 11-13-2022 Patient encounter procedure Lesli Cano PA-C Work Phone: [facility] Comment on above: Suspected COVID-19 v irus infection (Primary Dx) Start: 08-09-2022 End: 08-10-2022 [facility] Start: 07-09-2022 End: 07-09-2022 [facility] Start: 06-24-2022 Telephone encounter Margarito ayala MD Work Phone: Internal Medicine [place] Comment on above: Patient Update Start: 04-02-2022 End: 04-02-2022 Subsequent hospital visit by physician Shahid Moraes MD Work Phone: Ambulatory Surgery Comment on above: Generalized abdomina l pain [R10.84] Start: 03-23-2022 ambulatory Casandra Mcdaniel APRN.SILVERWARE BUFFING MACHINE OPERATOR Work Phone: Gastro[facility]ology [place] Comment on above: Medication Start: 03-21-2022 End: 03-21-2022 Patient encounter procedure Casandra Mcdaniel HOSPICE MANAGER.SILVERWARE BUFFING MACHINE OPERATOR [facility] Comment on above: Generalized abdomina l pain (Primary Dx); Bloating; Constipation, unspecified constipation type; Unintentional weight loss Start: 02-06-2019 End: 02-06-2019 Emergency department patient visit MARION [facility]ad[facility] GARCIAPOP Facility:B Procedures Date Procedure Procedure Detail Performing [...] Start: 09-29-2025 Basic metabolic panel calcium total Step gita Aguilar DO Work Phone: Start: 09-29-2025 Troponin I.cardiac panel - Serum or Plasma by High sensitivity method Garth Aguilar DO Work Phone: Start: 07-19-2025 Complete blood count with white cell differential, automated Hardik Anna MD Work Phone: Start: 07-19-2025 Sedimentation rate rbc automated Hardik Anna MD Work Phone: Start: 07-19-2025 End: 07-19-2025 Non-invasive physiologic study extremity 3 levls Scott Cuellar HOSPICE MANAGER - SILVERWARE BUFFING MACHINE OPERATOR Work Phone: Start: 07-18-2025 Mri brain brain stem w/o w/contrast material Chloé W Ruggiero DO Work Phone: Start: 07-18-2025 C-reactive protein Chloé W Ruggiero DO Work Phone: Start: 07-18-2025 Comprehensive metabolic panel Chloé W Swi ft DO Work Phone: Start: 07-16-2025 Ct head/brain w/o contrast material Juancarlos Cuellar HOSPICE MANAGER - SILVERWARE BUFFING MACHINE OPERATOR Work Phone: Start: 07-04-2025 Assay of ferritin Hardik Anna MD Work Phone: Start: 07-04-2025 End: 07-04-2025 Bacteria identified in Blood by Culture Hardik Anna MD Work Phone: Start: 07-04-2025 C-reactive protein Hardik Anna MD Work Phone: Start: 06-24-2025 Assay of lipase Scott Cuellar HOSPICE MANAGER - SILVERWARE BUFFING MACHINE OPERATOR Work Phone: Start: 06-24-2025 Lipid panel Scott Cuellar APRN - LOKI Work Phone: Start: 06-24-2025 Thyrotropin [Units/volume] in Serum or Plasma Scott Cuellar HOSPICE MANAGER - SILVERWARE BUFFING MACHINE OPERATOR Work Phone: Start: 06-24-2025 Ct abdomen & pelvis w/o contrast material Scott Cuellar HOSPICE MANAGER - SILVERWARE BUFFING MACHINE OPERATOR Work Phone: Start: 06-24-2025 Lipid 1996 panel - Serum or Plasma Toro Santamaria MD Work Phone: Start: 06-15-2025 Urnls dip stick/tablet reagent auto microscopy Luis Smyth MD Work Phone: Start: 06-15-2025 Comprehensive metabolic panel Luis snow MD Work Phone: Start: 03-16-2025 Gram stain microscopy No Primary Care Physician Start: 03-15-2025 X-ray of foot, three or more views No [facility] Care Physician Start: 01-13-2025 Radiologic exam chest 2 views Marcos zamora HOSPICE MANAGER.SILVERWARE BUFFING MACHINE OPERATOR Work Phone: Start: 01-12-2025 BLADDER SCAN Ce Wood MD Work Phone: Start: 11-13-2022 Radiologic exam chest 2 views Lesli R Ath y PA-C Work Phone: Start: 07-09-2022 X-ray of chest posteroanterior view Start: 04-02-2022 Esophagogastroduodenoscopy transoral diagnostic Casandra Mcdaniel HOSPICE MANAGERParadiseSILVERWARE BUFFING MACHINE OPERATOR Work Phone: Start: 04-02-2022 Colonoscopy flx dx w/collj spec when pfrmd Casandra Mcdaniel HOSPICE MANAGER.SILVERWARE BUFFING MACHINE OPERATOR Work Phone: Start: 04-02-2022 Colonoscopy Margarito Smith MD Work Phone: Start: 11-26-2016 Lipid 1996 panel - Serum or Plasma Romy Wing HOSPICE MANAGER.SILVERWARE BUFFING MACHINE OPERATOR Work Phone: None (qualifier value) DR JAREN ENRIQUEZ MD Plan of Treatment Date Care Activity Detail Author Start: 2062 RSV Immunization for Adults (1 - 1-dose 75+ series) RSV Immunization for Adults (1 - 1-dose 75+ series) [facility] Start: 2047 RSV Immunization aged 60 or older (1 - 1-dose 60+ series) RSV Immunization aged 60 or older (1 - 1-dose 60+ series) [facility] Start: 2037 Zoster Vaccines (1 of 2) Zoster Vaccines (1 of 2) [facility] Start: 11-28-2034 DTaP/Tdap/Td Vaccines (2 - Td or Tdap) DTaP/Tdap/Td Vaccines (2 - Td or Tdap) [facility] Start: 11-28-2034 Tetanus vaccination TETANUS [facility] Start: 11-28-2034 Urine microalbumin profile DTaP,Tdap,Td Vaccine (2 - Td or Tdap) [facility] Start: 06-24-2030 Lipid panel [facility] Start: 07-18-2028 Diabetes mellitus screening Diabetes Screening [facility] Start: 04-02-2027 Colonoscopy COLONOSCOPY [facility] Start: 04-02-2027 COLORECTAL CANCER SCREENING COLORECTAL CANCER SCREENING [facility] Start: 04-02-2027 Screening for malignant neoplasm of colon [facility] Start: 09-29-2026 Diabetes mellitus screening Diabetes Screening [facility] Start: 07-18-2026 Diabetes mellitus screening Diabetes Screening [facility] Start: 03-15-2026 End: 03-15-2026 Patient encounter procedure 03/15/2026 2:00 PM EDT Office Visit Inflammatory Bowel Disease [facility] [address] [place] [address] Garima Huertas MD [address] [place] [address] Inflammatory Bowel Disease [facility] Start: 12-23-2025 Depression Monitoring Depression Monitoring [facility] Start: 11-28-2025 End: 11-28-2025 Patient encounter procedure 11/28/2025 3:00 PM EST Office Visit [facility] Rheumatology & Internal Medicine [address] [place] [address] Carmen Hughes MD [address] [place] [address] [facility] Rheumatology & Internal Medicine Start: 10-18-2025 End: 10-18-2025 Patient encounter procedure 10/18/2025 2:45 PM EST Office Visit [place] [address] [facility] [address] [place] [address] Kobi Short MD [address] [place] [address] [facility] Start: 10-14-2025 End: 10-14-2025 Patient encounter procedure 10/14/2025 2:20 PM EST Office Visit [facility] Internal Medicine [address] [place] [phone] Shelly Izquierdo MD [address] [place] [address] [facility] Internal Medicine [facility] Start: 10-10-2025 End: 10-10-2025 Patient encounter procedure 10/10/2025 3:00 PM EST Office Visit [facility] [address] [place] [address] Anibal Parekh MD [address] [facility] [place] [address] [facility] Start: 10-07-2025 End: 10-07-2025 Patient encounter procedure 10/07/2025 11:30 AM EST Office Visit [facility] Medical Office Building [address] [place] [phone] Viktor Lopez MD [address] [place] [address] [facility] Medical Office Building Start: 10-05-2025 End: 10-05-2025 Patient encounter procedure 10/05/2025 10:30 AM EST Office Visit [facility] [address] [place] [phone] Joy Will MD [address] [place] [place] [address] [facility] Start: 09-27-2025 End: 09-27-2025 Patient encounter procedure 09/27/2025 12:15 PM EDT Office Visit Vascular Medicine [address] [place] [address] Johan Faust MD [address] [place], [place] [id number] Dx: Erythromelalgia, Burning Red Hands and Feet Vascular Medicine Comment on above: Dx: Erythromelalgia, Burning Red Hands a nd Feet Start: 08-02-2025 End: 08-02-2025 Patient encounter procedure 08/02/2025 2:30 PM EDT Office Visit [facility] [place] [address] [place] [phone] Scott Santamaria MD [address] [place], [place] [phone] [facility] [place] Start: 08-01-2025 COVID-19 Vaccine ( season) COVID-19 Vaccine ( season) [facility] Start: 08-01-2025 Influenza vaccination Influenza Vaccine (#1) [facility] Start: 07-29-2025 Annual PCP Team Chronic Disease Visit Annual PCP Team Chronic Disease Visit [facility] Start: 07-29-2025 End: 07-29-2025 Patient encounter procedure 07/29/2025 1:20 PM EDT Office Visit [facility] Rheumatology & Internal Medicine [address] [place] [phone] Carmen Hughes MD [address] [address] [place] [address] [facility]ology [facility] Internal [facility] Start: 07-28-2025 End: 07-28-2025 Patient encounter procedure 07/28/2025 1:30 PM EDT Office Visit [address] [place] [address] Kobi Short MD [address] [place] [address] [facility] Start: 07-25-2025 End: 07-25-2025 Patient encounter procedure 07/25/2025 8:20 AM EDT Office Visit [facility] [address] [phone] Mitchel Joe MD [address] [place] [address] [facility] Start: 07-22-2025 End: 07-22-2025 Patient encounter procedure 07/22/2025 11:20 AM EDT Office Visit [facility] [address] [phone] Mitchel Joe MD [address] [place] [address] [facility] Start: 07-20-2025 End: 07-20-2025 Patient encounter procedure 07/20/2025 9:20 AM EDT Office Visit [facility] [address] [place] [phone] Joel Cohen MD [address] [place] [address] [facility] Start: 07-19-2025 End: 07-19-2025 Patient encounter procedure [facility] Vascular Lab Start: 07-18-2025 End: 07-18-2025 Patient encounter procedure 07/18/2025 1:50 PM EDT Office Visit [facility] Internal [facility] - [facility] [address] [place] [phone] Scott Cuellar APRN Tri MANJARREZ [address] [place] [address] [facility] Internal [facility] - [facility] Start: 07-11-2025 End: 07-11-2025 Patient encounter procedure 07/11/2025 9:00 AM EDT Office Visit [facility] [place] [address] [place] [phone] Joycelyn Ariza MD [address] [place] [address] [facility] [place] Start: 07-04-2025 End: 07-04-2026 XR Foot - left 3 Views XR foot 3+ views left Imaging Routine Cellulitis of all toes of left foot Arthralgia, unspecified joint Class 1 obesity due to excess calories without serious comorbidity with body mass index (BMI) of 32.0 to 32.9 in adult Expected: 07/04/2025, Expires: 07/04/2026 [facility] Work Phone: Comment on above: Expected: 07/04/2025, Expires: Start: 07-04-2025 End: 07-04-2025 Patient encounter procedure 07/04/2025 1:00 PM EDT Office Visit [facility] [place] [address] [place] [phone] Hardik Anna MD [address] [place], [place] [phone] [facility] [place] Start: 07-01-2025 End: 07-01-2026 25-hydroxyvitamin D3 [Mass/volume] in Serum or Plasma Vitamin D Deficiency Screening (Vit D 25) Lab Routine Gastroesophageal reflux disease, unspecified whether esophagitis present Fatigue, unspecified type Expected: 07/01/2025 (Approximate), Expires: 07/01/2026 [facility] Work Phone: Comment on above: Expected: 07/01/2025 (Approximate), Expi res: 07/01/2026 Start: 07-01-2025 End: 07-01-2026 Cobalamin (Vitamin B12) [Mass/volume] in Serum or Plasma Vitamin B12 Lab Routine Gastroesophageal reflux disease, unspecified whether esophagitis present Fatigue, unspecified type Expected: 07/01/2025 (Approximate), Expires: 07/01/2026 [facility] Comment on above: Expected: 07/01/2025 (Approximate), Expi res: 07/01/2026 Start: 07-01-2025 End: 07-01-2026 Cortisol Cortisol Lab Routine Gastroesophageal reflux disease, unspecified whether esophagitis present Fatigue, unspecified type Expected: 07/01/2025 (Approximate), Expires: 07/01/2026 [facility] Comment on above: Expected: 07/01/2025 (Approximate), Expi res: 07/01/2026 Start: 07-01-2025 Influenza vaccination Influenza Vaccine (#1) [facility] Start: 07-01-2025 End: 07-01-2026 Nuclear Ab [Titer] in Serum by Immunofluorescence NAVEED Lab Routine Gastroesophageal reflux disease, unspecified whether esophagitis present Fatigue, unspecified type Expected: 07/01/2025 (Approximate), Expires: 07/01/2026 [facility] Comment on above: Expected: 07/01/2025 (Approximate), Expi res: 07/01/2026 Start: 06-29-2025 Subsequent hospital visit by physician 06/29/2025 2:00 PM EDT Hospital Encounter [facility] [address] [place] [address] Scott Cuellar, HOSPICE MANAGER - SILVERWARE BUFFING MACHINE OPERATOR [address] [place] [address] [facility] Start: 06-27-2025 End: 06-27-2025 Patient encounter procedure 06/27/2025 11:00 AM EDT Office Visit [facility] [place] [address] [place] [id number] Scott Santamaria MD [address] [place] [address] [facility] Start: 06-22-2025 End: 06-22-2026 Testo,Free/Total-Male Testo,Free/Total-Male Lab Routine Fatigue, unspecified type Expected: 06/22/2025 (Approximate), Expires: 06/22/2026 [facility] Work Phone: Comment on above: Expected: 06/22/2025 (Approximate), Expi res: 06/22/2026 Start: 06-22-2025 End: 06-22-2026 US Scrotum and testicle US scrotum Imaging Routine Pain in both testicles Expected: 06/22/2025, Expires: 06/22/2026 [facility] Comment on above: Expected: 06/22/2025, Expires: Start: 03-16-2025 End: 03-16-2025 [facility] Start: 03-16-2025 Microbial culture, routine Wound Culture [facility] Start: 03-08-2025 End: 03-08-2025 Patient encounter procedure 03/08/2025 3:05 PM EDT Office Visit Gastroenterology [facility] [address] [place] [phone] Faiza Anders, TATE.SILVERWARE BUFFING MACHINE OPERATOR [address] [place] [place] [address] Blood in stool, Bloating, Severe pain in lower abdomen and groin, constipation, pain with bowel movement [facility] Comment on above: Blood in stool, Bloating, Severe pain in lower abdomen and groin, constipation, pain with bowel movement Start: 02-16-2025 End: 02-16-2025 Patient encounter procedure 02/16/2025 4:00 PM EDT Office Visit Urology [address] [facility] [address] Ce Wood MD [address] [facility] [place] [address] 4-6 WEEK FOLLOW UP Urology Comment on above: 4-6 WEEK FOLLOW UP Start: 01-20-2025 End: 01-20-2025 Patient encounter procedure 01/20/2025 3:00 PM EST Appointment Cat Scan [address] [place] [address] CT FLANK WO IVCON Cat Scan Comment on above: CT FLANK WO IVCON Start: 01-19-2025 End: 02-11-2026 CT Abdomen and Pelvis WO contrast CT FLANK WO IVCON Radiology Routine Renal stones Expected: 01/19/2025 (Approximate), Expires: 02/11/2026 [facility] Work Phone: Comment on above: Expected: 01/19/2025 (Approximate), Expi res: 02/11/2026 Start: 12-01-2024 Medicare Advantage Annual Wellness Visit Medicare Advantage Annual Wellness Visit [facility] Start: 11-28-2024 Simple repair scalp/neck/ax/genit/trunk 2.5cm/< RPR S/N/AX/GEN/TRNK 2.5CM/< [facility] Start: 11-28-2024 [facility] Start: 08-23-2024 End: 08-23-2024 Patient encounter procedure 08/23/2024 10:40 AM EDT Office Visit [facility] [address] [place] [address] [place] [address] Jenny Heath S, HOSPICE MANAGER - SILVERWARE BUFFING MACHINE OPERATOR [address] [place] [address] [place] [address] [facility] Start: 08-01-2024 Covid-19 Vaccine ( season) Covid-19 Vaccine ( season) [facility] Start: 08-01-2024 Influenza vaccination Influenza Vaccine (#1) [facility] Start: 07-29-2024 End: 07-29-2024 Patient encounter procedure 07/29/2024 2:40 PM EDT Office Visit Family Practice [address] [address] Marcos Bee APRN.SILVERWARE BUFFING MACHINE OPERATOR [address] [address] ER F[facility] Comment on above: ER F[facility] Start: 12-01-2023 Medicare Advantage Annual Wellness Visit Medicare Advantage Annual Wellness Visit [facility] Start: 08-01-2023 Covid-19 Vaccine () Covid-19 Vaccine () [facility] Start: 01-11-2023 ANNUAL PCP TEAM CHRONIC DISEASE VISIT ANNUAL PCP TEAM CHRONIC DISEASE VISIT [facility] Start: 11-13-2022 End: 11-27-2022 Influenza virus A and B RNA and SARS-CoV-2 (COVID-19) N gene panel - Respiratory specimen by ADAL with probe detection [facility] Work Phone: Comment on above: Expected: 11/13/2022, Expires: 2 Start: 08-01-2022 Influenza vaccination INFLUENZA (#1) [facility] Start: 2022 Lipid panel Lipid Screening [facility] Start: 2022 LIPID SCREEN LIPID SCREEN [facility] Start: 01-17-2022 COVID-19 VACCINE (4 - Booster for Moderna series) COVID-19 VACCINE (4 - Booster for Moderna series) [facility] Start: 11-23-2016 MMR Vaccines (1 of 1 - Standard series) MMR Vaccines (1 of 1 - Standard series) [facility] Start: 2014 HPV Vaccine (1 - 3-dose SCDM series) HPV Vaccine (1 - 3-dose SCDM series) [facility] Start: 2014 HPV Vaccines (1 - 3-dose standard series) HPV Vaccines (1 - 3-dose standard series) [facility] Start: 2006 DTaP/Tdap/Td Vaccines (1 - Tdap) DTaP/Tdap/Td Vaccines (1 - Tdap) [facility] Start: 2006 Hepatitis A Vaccines (1 of 2 - Risk 2-dose series) Hepatitis A Vaccines (1 of 2 - Risk 2-dose series) [facility] Start: 2006 Hepatitis B vaccination HEP B VACCINE (1 of 3 - 19+ 3-dose series) [facility] Start: 2006 Hepatitis B Vaccine (1 of 3 - 19+ 3-dose series) Hepatitis B Vaccine (1 of 3 - 19+ 3-dose series) [facility] Start: 2006 Hepatitis B Vaccines (1 of 3 - 19+ 3-dose series) Hepatitis B Vaccines (1 of 3 - 19+ 3-dose series) [facility] Start: 2006 ONE PNEUMOVAX PRIOR TO AGE 65 ONE PNEUMOVAX PRIOR TO AGE 65 [facility] Start: 2006 Pneumococcal vaccination Pneumococcal Vaccine (1 of 2 - PCV) [facility] Start: 2006 PNEUMOCOCCAL VACCINE SERIES (1 of 2 - PCV) PNEUMOCOCCAL VACCINE SERIES (1 of 2 - PCV) [facility] Start: 2006 Pneumococcal Vaccine: Pediatrics (0 to 5 Years) and At-Risk Patients (6 to 49 Years) (1 of 2 - PCV) Pneumococcal Vaccine: Pediatrics (0 to 5 Years) and At-Risk Patients (6 to 49 Years) (1 of 2 - PCV) [facility] Start: 2006 Pneumococcal Vaccine: Pediatrics and At-Risk Adult Patients (1 of 2 - PCV) Pneumococcal Vaccine: Pediatrics and At-Risk Adult Patients (1 of 2 - PCV) [facility] Start: 2006 Urine microalbumin profile [facility] Start: 2005 Anxiety Screening Anxiety Screening [facility] Start: 2005 BP CONTROLLED (<130/80) BP CONTROLLED (<130/80) [facility] Start: 2005 Diabetes mellitus screening Diabetes Screening [facility] Start: 2005 Hepatitis C screening Hepatitis C Screening [facility] Start: 2002 HIV screening HIV SCREENING DISCUSSION [facility] Start: 2000 Varicella vaccination Varicella Vaccines (1 of 2 - 13+ 2-dose series) [facility] Start: 1999 Depression Monitoring Depression Monitoring [facility] Start: 1999 Depression Screening Depression Screening [facility] Start: 1993 PNEUMOCOCCAL (1 - PCV) PNEUMOCOCCAL (1 - PCV) [facility] Start: 1993 Pneumococcal vaccination Pneumococcal Vaccine (1 of 2 - PCV) [facility] Start: 1988 MMR Vaccines (1 of 1 - Standard series) MMR Vaccines (1 of 1 - Standard series) [facility] Start: 1987 HEPATITIS B (1 of 3 - 3-dose series) HEPATITIS B (1 of 3 - 3-dose series) [facility] Start: 1987 Hepatitis C screening HEPATITIS C VIRUS SCREENING [facility] Start: 1987 HIV screening HIV Screening [facility] Start: 1987 Lipid panel Lipid Panel [facility] Start: 1987 Medicare Annual Wellness Visit Medicare Annual Wellness Visit (AWV) [facility] Bacteria identified in Blood by Culture [facility] Bacteria identified in Urine by Culture BACTERIAL CULTURE, URINE Microbiology Routine Recurrent UTI 01/12/2025 4:25 PM EST [facility] Borrelia burgdorferi IgG+IgM Ab [Units/volume] in Serum LYME ANTIBODY SCREEN WITH REFLEX TO IMMUNOBLOT Lab Routine Cellulitis of all toes of left foot Arthralgia, unspecified joint Class 1 obesity due to excess calories without serious comorbidity with body mass index (BMI) of 32.0 to 32.9 in adult 07/04/2025 2:53 PM EDT [facility] End: 07-18-2025 ECG 12 Lead ECG 12 Lead ECG STAT Once for 1 Occurrences starting 07/18/2025 until 07/18/2025 [facility] Service Area Work Phone: Comment on above: Once for 1 Occurrences starting 07/18/20 until 07/18/2025 End: 09-29-2025 ECG 12 lead [facility] Service [facility] Work Phone: Comment on above: Once for 1 Occurrences starting 09/29/20 until 09/29/2025 Erythropoietin Erythropoietin L ab Routine Cellulitis of all toes of left foot Arthralgia, unspecified joint Chronic night sweats History of blood clots 07/04/2025 2:53 PM EDT [facility] End: 07-18-2025 Fungus identified in Blood by Culture Fungal Culture, Blood Lab STAT Once (Lab) for 1 Occurrences starting 07/18/2025 until 07/18/2025 [facility] Work Phone: Comment on above: Once (Lab) [...] of blood clots 07/04/2025 3:00 PM EDT [facility] Hemochromatosis mutation Hemochr omatosis mutation Lab Routine Cellulitis of all toes of left foot Arthralgia, unspecified joint Class 1 obesity due to excess calories without serious comorbidity with body mass index (BMI) of 32.0 to 32.9 in adult 07/04/2025 2:53 PM EDT [facility] Patient Education [facility] Work Phone: Patient referral [facility] Work Phone: End: 10-05-2025 Standard ECG [facility] Comment on above: One Time for 1 Occurrences starting 03/2025 until 10/05/2025 SURGICAL PATHOLOGY [facility] Work Phone: Comment on above: Release Upon Ordering for 1 Occurrences starting 04/02/2022, 1 completed End: 06-29-2025 US Scrotum and testicle [facility] Work Phone: Comment on above: Once for 1 Occurrences starting 06/29/20 until 06/29/2025 XR Chest PA and Lateral XR CHEST 2V FRONTAL/LAT Radiology STAT Chronic cough Ordered: 07/29/2024 [facility] Work Phone: Comment on above: Ordered: 07/29/2024 End: 07-06-2025 XR Foot - left 3 Views [facility] Work Phone: Comment on above: Once for 1 Occurrences starting 07/06/20 until 07/06/2025 Immunizations Immunization Date Immunization Notes Care Provider Fa vinnie 11-28-2024 tetanus toxoid, redu bg diphtheria toxoid, and acellular pertussis vaccine, adsorbed No Primary Care Physician [facility] 01-11-2022 influenza, injectabl e, quadrivalent, contains preservative Casandra Mcdaniel HOSPICE MANAGER.SILVERWARE BUFFING MACHINE OPERATOR Work Phone: [facility] 01-11-2022 influenza virus vaccine, unspecified formulation Romy Wing HOSPICE MANAGER.SILVERWARE BUFFING MACHINE OPERATOR Work Phone: [facility] 08-08-2016 rabies vaccine, for intramuscular injection Casandra Mcdaniel HOSPICE MANAGER.SILVERWARE BUFFING MACHINE OPERATOR Work Phone: [facility] 07-31-2016 rabies vaccine, for intramuscular injection [facility] 07-24-2016 rabies immune globulin [facility] Work Phone: 07-24-2016 rabies vaccine, for intramuscular injection Casandra Mcdaniel HOSPICE MANAGER.SILVERWARE BUFFING MACHINE OPERATOR Work Phone: [facility] Payers Date Payer Category Payer Unknown [id number] 2025 Private Health Insurance [id number] 2024 Self-pay [id number] 2023 Medicare (Managed Care) 1.2. [id number] 2023 Medicare HMO UHC DUAL COMPLET E [id number] 2023 Unknown [id number] 2023 Medicaid HMO [id number] 2022 Medicaid (Managed Care) 1.2. [id number] 2022 Medicaid [employer] [facility] [employer] MEDICAID [id number] 2022-Present [phone] [address] [place] [address] Medicaid [id number] 2022 Medicaid [id number] 2022 Medicare [facility] MEDICARE [facility] DUAL COMPLETE HMO SNP [id number] 2022-Present [phone] [address] [place] [address] Medicare [id number] 2022 Medicare [id number]. [id number] .[id number] 2019 Dual Eligibility Medicare/Medicaid Organization [id number] 2019 Medicare [id number] 2012 Medicaid [id number] 2012 Unknown [id number] 1987 Unknown [id number] 2.16.840.1.386273.3.579.2 .627 1987 Unknown [id number] 2.16.840.1.692614.3.579.2 .627 1987 Unknown [id number] 2.16.840.1.194361.3.579.2 .627 1987 Unknown [id number] 2.16.840.1.240552.3.579.2 .627 1987 Unknown [id number] 2.16.840.1.848506.3.579.2 .732 1987 Unknown [id number] 2.16.840.1.950417.3.579.2 .1249 1987 Unknown [id number] 2.16840.1.913389.3.579.2 .902 1987 Unknown [id number] 2.840.1.825437.3.579.2 .1244 1987 Unknown [id number] 2.840.1.805407.3.579.2 .1244 1987 Unknown [id number] 2.840.1.815392.3.579.2 .1244 1987 Unknown [id number] 2.840.1.407437.3.579.2 .1243 1987 Unknown [id number] 2.840.1.479741.3.579.2 .1243 1987 Unknown [id number] 2.840.1.533513.3.579.2 .1243 1987 Unknown [id number] 2.16840.1.388046.3.579.2 .594 1987 Unknown [id number] 2.16840.1.935692.3.579.2 .594 1987 Unknown [id number] 2.16840.1.977987.3.579.2 .594 1987 Unknown [id number] 2.16840.1.762441.3.579.2 .594 1987 Unknown [id number] 2.16.840.1.223776.3.579.2 .594 1987 Unknown [id number] 2.16.840.1.785459.3.579.2 .594 1987 Unknown [id number] 2.16.840.1.339320.3.579.2 .594 Unknown [id number] 2.16.840.1.763380.3.579.2 .462 Unknown [id number] 2.16.840.1.761098.3.579.2 .462 Unknown [id number] 2.16.840.1.449872.3.579.2 .462 Unknown [id number] 2.16.840.1.505996.3.579.2 .462 Social History Date Type Detail Facility Start: 05-13-2014 End: 07-27-2025 Tobacco smoking status NMIS Smokes tobacco daily [facility] Work Phone: Start: 07-10-2010 History of tobacco use Cigarette Smo ker [facility] Work Phone: Start: 05-13-2014 End: 10-05-2025 Cigarettes smoked current (pack per day) - Reported 1 [facility] Start: 05-13-2014 End: 07-27-2025 Tobacco use and exposure Smokeless tobacco non-user [facility] Work Phone: Start: 03-21-2022 End: 10-05-2025 Alcohol intake Ex-drinker (finding) [facility] Start: 01-11-2022 History SDOH Alcohol Frequency 1 [facility] Start: 01-11-2022 History SDOH Alcohol Comment in recovery since 2018 [facility] Start: 1985 Sex Assigned At Male [facility] Start: 03-17-2022 End: 04-02-2022 Exposure to SARS-CoV-2 (event) Not sure [facility] Work Phone: Start: 07-09-2022 End: 08-10-2022 Tobacco smoking status NMIS Unknown if ever smoked [facility] Start: 04-27-2021 Occasional [place] [facility] Start: 04-27-2021 None [facility] Start: 04-27-[address] [facility] Start: 04-27-2021 Cigarettes [facility] Start: 01-11-2022 End: 10-05-2025 Alcohol Use Disorder Identification Test - Consumption [AUDIT-C] [facility] How often to you hav e a drink containing alcohol? Never [facility] Start: 11-01-2012 End: 10-26-2022 Average Number of Drinks [facility] Start: 03-15-2022 Gender identity Identifies as male gender (finding) [facility] Start: 03-15-2022 Sexual orientation Choose not to disclose [facility] Has the [employer], [employer], or [employer] threatened to shut off services in your home in past 12Mo No [facility] Do you belong to any clubs or organizations such as cheondoism groups, unions, fraternal or athletic groups, or school groups? Yes [facility] Are you now , , , , never or living with a partner? Never [facility] How hard is it for y ou to pay for the very basics like food, housing, medical care, and heating Not very hard [facility] Do you feel stress - tense, restless, nervous, or anxious, or unable to sleep at night because your mind is troubled all the time - these days [OSQ] To some extent [facility] (I/We) worried wheth er (my/our) food would run out before (I/we) got money to buy more. Sometimes true [facility] Start: 07-29-2024 Sexual orientation Heterosexua l (finding) [facility] Start: 1985 Sex assigned at Not on file [facility] Sexual Orientation [facility] o[facility]ital [facility] Start: 02-03-2020 End: 04-20-2025 Sex Male (finding) [facility] Start: 06-15-2025 End: 07-11-2025 Tobacco use and exposure User of smokeless tobacco [facility] Start: 06-15-2025 End: 10-05-2025 Alcoholic beverage intake Lifetime non-drinker (finding) [facility] How hard is it for y ou to pay for the very basics like food, housing, medical care, and heating Somewhat hard [facility] Do you feel stress - tense, restless, nervous, or anxious, or unable to sleep at night because your mind is troubled all the time - these days [OSQ] Not at all [facility] History of tobacco use Passive smoker [facility] Start: 07-11-2025 End: 10-05-2025 Tobacco smoking status NMIS Ex-smoker [facility] Start: 07-10-2010 History of tobacco use Current smoke r [facility] Start: 07-21-2025 Alcohol Comment Non drinker [facility] Start: 07-28-2025 End: 07-29-2025 Tobacco smoking status [facility] Occasional tobacco smoker [facility] Start: 07-27-2025 Alcohol Comment I quit drinkin g alcohol many years ago. [facility] Work Phone: Start: 07-29-2025 Tobacco Comment 12/04 ppd [facility] Work Phone: NEGATED: Highlighted rowStart: NINF History of tobacco use [facility]ive [facility] Functional Status Date Assessment Result Facility 10-05-2025 Patient Health Quest ionnaire 2 item (PHQ-2) [Reported] [facility] Work Phone: 10-05-2025 Functional status 135/93 025 10:37 AM Little Berkowitz, [facility] 135/93 [facility] Work Phone: 10-05-2025 Vital signs 83 10/05/2025 10 :37 AM Little Berkowitz, [facility] Work Phone: 09-29-2025 [facility] Work Phone: 09-29-2025 Functional status [facility] Work Phone: 09-29-2025 [facility] suicide s everity rating scale screener - recent [C-SSRS] [facility] Work Phone: 07-29-2025 Patient Health Quest ionnaire 2 item (PHQ-2) [Reported] [facility] Work Phone: 07-18-2025 [place] - suicide s everity rating scale screener - recent [C-SSRS] [facility] Work Phone: 06-22-2025 Alcohol Use Disorder Identification Test [AUDIT] [facility] 06-22-2025 Patient [facility] Quest ionnaire 2 item (PHQ-2) [Reported] [facility] 06-22-2025 PHQ-9 quick depressi on assessment panel [Reported.PHQ] [facility] 06-15-2025 Total score [AUDIT-C] 0 06/15/20 6:45 PM EDT Selina Norris RN [facility] 06-29-2015 Are you deaf, or do you have serious difficulty hearing No 06/29/2015 10:48 AM PABLOT Genna Noriega MA No [facility] 06-29-2015 Are you blind, or do you have serious difficulty seeing, even when wearing glasses No 06/29/2015 10:48 AM PABLOT Genna Noriega MA No [facility] 06-29-2015 Do you have serious difficulty walking or climbing stairs No 06/29/2015 10:48 AM EDT Genna Noriega MA No [facility] 06-29-2015 Do you have difficul ty dressing or bathing No 06/29/2015 10:48 AM PABLOT Genna Noriega MA No [facility] 06-29-2015 Because of a physica l, mental, or emotional condition, do you have difficulty doing errands alone such as visiting a physician's office or shopping No 06/29/2015 10:48 AM PABLOT Genna Noriega MA No [facility] Work Phone: Mental Status Date Assessment Result Facility 03-19-2025 Cognitive function Level Of Cons ciousness Awake;Alert;Appropriate [facility] Work Phone: 06-29-2015 Because of a physica l, mental, or emotional condition, do you have serious difficulty concentrating, remembering, or making decisions No 06/29/2015 10:48 AM EDT Genna Noriega, TASH No [facility] Clinical Notes 03-21-2022 to 10-06-2025 CRISTIANE Duran [...] placed in discharge paperwork. CRISTIANE Ibrahim ED Student Driving Instructor Available on Secure Chat [facility] 10-06-2025 Emergency department Note Care Management Progress Note SW provided patient with insurance transportation information if needed for discharge transportation, placed in discharge paperwork. CRISTIANE Ibrahim ED Student Driving Instructor Available on Secure Chat Pt. Removed pulse [...] during episodes. height is 1.778 m (5' 10). His temperature is 98.1 F (36.7 C). [...] Resource Strain: Medium Risk (06/14/2025) Received from [facility] Overall Financial Resource Strain (CARDIA) Difficulty of Paying Living Expenses: Somewhat hard Food Insecurity: Food Insecurity Present (06/14/2025) Received from [facility] Hunger Vital Sign Within the past 12 months, you worried that your food would run out before you got the money to buy more.: Sometimes true Within the past 12 months, the food you bought just didn't last and you didn't have money to get more.: Sometimes true Transportation Needs: Unmet Transportation Needs (06/14/2025) Received from [facility] PRAPARE - Transportation Lack of Transportation (Medical): Yes Lack of Transportation (Non-Medical): Yes Physical Activity: Sufficiently Active (06/14/2025) Received from [facility] Exercise Vital Sign On average, how many days per week do you engage in moderate to strenuous exercise (like a brisk walk)?: 7 days On average, how many minutes do you engage in exercise at this level?: 80 min Stress: No Stress Concern Present (06/14/2025) Received from [facility] - Occupational Stress Questionnaire Feeling of Stress : Not at all Social Connections: Moderately Integrated (06/14/2025) Received from [facility] Social Connection and Isolation Panel In a typical week, how many times do you talk on the phone with family, friends, or neighbors?: Twice a week How often do you get together with friends or relatives?: Once a week How often do you attend cheondoism or caodaism services?: More than 4 times per year Do you belong to any clubs or organizations such as cheondoism groups, unions, fraternal or athletic groups, or school groups?: Yes How often do you attend meetings of the clubs or organizations you belong to?: More than 4 times per year Are you , , , , never , or living with a partner?: Never Personal Safety: Not At Risk (06/14/2025) Received from [facility] Humiliation, Afraid, Rape, and Kick questionnaire Within [...] Housing Stability: High Risk (06/14/2025) Received from [facility] Stability Vital Sign In the last 12 months, was there a time when you were not able to pay the mortgage or rent on time?: No In the past 12 months, how many times have you moved where you were living?: 1 At any time in the past 12 months, were you homeless or living in a care home (including now)?: Yes PHYSICAL EXAM BP (!) 156/97 Pulse 69 Temp 98.1 F (36.7 C) Resp 23 Ht 1.778 m (5' 10) SpO2 94% BMI 30.85 kg/m Smoking Status [...] Date Result Priority Marcelino Han Jr., MD [phone] 10/06/2025 Narrative & Impression EXAM: XR CHEST [...] with GCS 15. documented in this encounter [facility] 10-06-2025 Hospital Discharge instructions CRISTIANE Duran - 10/06/2025 1:56 AM EST Insurance Provided Transportation You have been discharged and will need to schedule transportation home with your insurance. Please use the following information to schedule a ride for hospital discharge. Insurance provider & phone number: [facility] Medicare (HMO/PPO): [phone] Your Pickup address: [address] [place] [address]-Follow signs to ED entrance The following attachments cannot be sent through Care Everywhere.Palpitations (Thai)documented in this encounter [facility] 10-06-2025 Emergency department Note Pt. Removed pulse ox, BP cuff, tele leads after speaking with attending and walked out of ER before tw could review discharge paperwork. [facility] 10-06-2025 Physician Emergency department Note ED Attending Chief Complaint Patient presents with Chest Pain Palpitations Past Medical History[1] Ce Baer is a 40 y.o. male presents with palpitations. Symptoms for two weeks, intermittent. Associated squeezing and stabbing sensation. Blurred vision and lightheadedness during episodes. height is 1.778 m (5' 10). His temperature is 98.1 F (36.7 C). [...] on file. Roberto Che MD 10/06/25 0206 [facility] 10-06-2025 Physician Emergency department Note dEPARTMENT of [...] Resource Strain: Medium Risk (06/14/2025) Received from [facility] Overall Financial Resource Strain (CARDIA) Difficulty of Paying Living Expenses: Somewhat hard Food Insecurity: Food Insecurity Present (06/14/2025) Received from [facility] Hunger Vital Sign Within the past 12 months, you worried that your food would run out before you got the money to buy more.: Sometimes true Within the past 12 months, the food you bought just didn't last and you didn't have money to get more.: Sometimes true Transportation Needs: Unmet Transportation Needs (06/14/2025) Received from [facility] PRAPARE - Transportation Lack of Transportation (Medical): Yes Lack of Transportation (Non-Medical): Yes Physical Activity: Sufficiently Active (06/14/2025) Received from [facility] Exercise Vital Sign On average, how many days per week do you engage in moderate to strenuous exercise (like a brisk walk)?: 7 days On average, how many minutes do you engage in exercise at this level?: 80 min Stress: No Stress Concern Present (06/14/2025) Received from [facility] - Occupational Stress Questionnaire Feeling of Stress : Not at all Social Connections: Moderately Integrated (06/14/2025) Received from [facility] Social Connection and Isolation Panel In a typical week, how many times do you talk on the phone with family, friends, or neighbors?: Twice a week How often do you get together with friends or relatives?: Once a week How often do you attend cheondoism or caodaism services?: More than 4 times per year Do you belong to any clubs or organizations such as cheondoism groups, unions, fraternal or athletic groups, or school groups?: Yes How often do you attend meetings of the clubs or organizations you belong to?: More than 4 times per year Are you , , , , never , or living with a partner?: Never Personal Safety: Not At Risk (06/14/2025) Received from [facility] Humiliation, Afraid, Rape, and Kick questionnaire Within [...] Housing Stability: High Risk (06/14/2025) Received from [facility] Housing Stability Vital Sign In the last 12 months, was there a time when you were not able to pay the mortgage or rent on time?: No In the past 12 months, how many times have you moved where you were living?: 1 At any time in the past 12 months, were you homeless or living in a care home (including now)?: Yes PHYSICAL EXAM BP (!) 156/97 Pulse 69 Temp 98.1 F (36.7 C) Resp 23 Ht 1.778 m (5' 10) SpO2 94% BMI 30.85 kg/m Smoking Status [...] Date Result Priority Marcelino Han Jr., MD [phone] 10/06/2025 Narrative & Impression EXAM: XR CHEST [...] and sob Viri Francois MD Resident 10/06/25314 [facility] Work Phone: 10-05-2025 Emergency department Note Bed: E041 Expected date: Expected time: Means of arrival: Comments: triage [facility] 10-05-2025 Note Acute Coronary Syndr ome (ACS): Initial Evaluation and Management: [email or web address] [facility] 10-05-2025 Emergency department Note Pt comes in [...] alert and oriented x4 with GCS 15. [facility] 10-05-2025 History of Present illness Narrative Subjective [...] WATCH LONG ENOUGH TO SEE THE CRAMPS . I ASKED TO WATCH THE REST OF VIDEO AND HE REFUSED WITH ANGER. I EXPLAINED I CAN DO LABS TO RULE OUT DIFFERENT REASONS .HE GOT EXTREMELY UPSET AND SAID I WILL COMPLAIN ABOUT YOU , YOU ARE LIKE THE REST OF THEM . ALL OF THE OTHER DOCTORS SAID NOTHING IS WRONG AND STORMED OUT OF THE ROOM . PHYSICAL EXAM WASN'T DONE TODAY (PT REFUSED). I SPENT 20 MINUTES WITH THE PT ,REVIEWING THE CHART/ RESULTS , LISTENING TO HIS COMPLAINTS, WILL EXCUSE HIM FROM OUR PRACTICE FOR DISRESPECTFUL BEHAVIOR . documented in this encounter [facility] Work Phone: 09-29-2025 Hospital Discharge instructions Garth Aguilar DO - 09/29/2025 5:32 PM EDT Follow-up with Dr. Wilson from ENT about the discoloration of your tongue and follow-up with Dr. Lam from cardiology about your palpitations and chest tightness The following attachments cannot be sent through Care Everywhere.Chest Pain Discharge Instructions (Thai)Palpitations (Thai)documented in this encounter [facility] Work Phone: 09-29-2025 Physician Emergency department Note HPI No chief complaint on file. Patient presents to the emergency department secondary to chest tightness and palpitations. Present for weeks. Denies dyspnea or cough. History provided by: Patient foreign language interpreter used: No Patient History Medical History[1] Surgical [...] Currently Types: Marijuana Garth Aguilar DO 09/29/25 173 T [facility] Work Phone: 09-29-2025 Emergency department Note HPI No chief complaint on file. Patient presents to the emergency department secondary to chest tightness and palpitations. Present for weeks. Denies dyspnea or cough. History provided by: Patient foreign language interpreter used: No Patient History Medical History[1] Surgical [...] DO 09/29/25 1731 documented in this encounter [facility] Work Phone: 09-27-2025 Note HNO ID: [id number] Author: JOHAN FAUST MD Service: ? Author Type: Physician Type: Progress Notes Filed: 09/27/2025 13:37 Note Text: [facility] Department of Cardiovascular Medicine SECTION [...] and trunk. He also describes veins that bulge intermittently in the dorsal aspect of the [...] for foot cellulitis. _ On 03/17/25 seen [facility] ([place], [place]) ER for a pain between L [...] then resolves _ Went to ED in [place] for CP but reportedly left AMA _ Diagnosed with pneumonia in the summer 2024. 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 He left the ED as he c/o that he did not like the doctor's tone of voice and felt that he was not having symptoms addressed. MAY 2025 _ C/o rectal bleeding and [...] There is also c/o seizures due to environmental toxins. _ Prior hx of alcohol abuse and [...] such as Raynaud's, Buerger's disease, erythromelalgia, and blood clots' were mentioned to him. Allergies: is [...] use disorder (2017), History of substance abuse ([facility]) (2004), and Hypertension (07/20/2019). Past surgical history: [...] pack-year smoking hist (more content not included)... [facility] 08-03-2025 Telephone encounter Note Called pt and left VM as well as sent a MC message. [facility] 08-03-2025 Miscellaneous Notes Called pt and left [...] to: self Call patient at: at home [phone] (home) [phone] (cell) Payor: [facility] MEDICARE / Plan: [facility] DUAL COMPLETE HMO POS SNP / Product Type: Medicare / Lucita Agee documented in this encounter [facility] 08-03-2025 Telephone encounter Note Silver can you please obtain records from where patient was treated previously? Eugenia Christiansen RN August 03, 2025 9:43 AM [facility] 08-03-2025 Telephone encounter Note ----- Message from [...] to: self Call patient at: at home [phone] (home) [phone] (cell) Payor: [facility] MEDICARE / Plan: [facility] DUAL COMPLETE HMO POS SNP / Product Type: Medicare / Lucita Agee [facility] 07-29-2025 Evaluation + Plan note Associated Problem(s): Pain of foot - h/o abscess , most recently told has Shayla glabrata - Terbinafine, Fluconazole, Nystatin did not help, could not afford Itraconazole -Per chart review fungal antibody gjcmw-qhuwufbr-7/19/25 - Requesting referrals to specialists as below -Stated podiatry was unable to help Orders: Referral to Vascular Medicine; Future [facility] Work Phone: 07-29-2025 Evaluation + Plan note Associated Problem(s): Leg pain, bilateral - charley horses, Livedo reticularis , legs feel twisted up at times PVR as above - Per chart review 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 -patient stated not aware of this diagnosis Orders: Referral to Vascular Medicine; Future [facility] Work Phone: 07-29-2025 Evaluation + Plan note Associated Problem(s): Bipolar 1 disorder (Multi) - no recent MH support Not on meds, per chart review has been on Abilify and Vraylar in the past Denies Si/HI Orders: Referral to Psychiatry; Future [facility] Work Phone: 07-29-2025 Evaluation + Plan note Associated Problem(s): Obsessive-compulsive disorder - no recent MH support Not on meds, per chart review has been on Abilify and Vraylar in the past Denies Si/HI Orders: Referral to Psychiatry; Future [facility] Work Phone: 07-29-2025 History of Present illness Narrative Subjective Patient ID: Ce Baer is a 40 y.o. male who presents for Establish Care and Foot Pain. 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 Specialists: [facility]-infectious diseases- Hardik Anna MD (Please explain to [...] Behavioral health -bipolar 1-needs new referral Integrative/functional medicine-[facility] Thromboangiitis obliterans (Buerger's disease) - [facility]- PVR normal at rest-exercise not performed [...] Wants referrals to dermato, ID, vascular, neurology, placement officer Review of Systems Constitutional: Positive for fatigue. [...] C (97.9 F) Ht 1.753 m (5' 9) Wt 97.7 kg (215 lb 4.8 oz) [...] afford Itraconazole -Per chart review fungal antibody meyuj-duccifaz-1/19/25 - Requesting referrals to specialists as below -Stated podiatry was unable to help Orders: Referral to Vascular Medicine; Future Discoloration of skin of foot ? 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 infectious diseases Orders: Referral to Dermatology [...] months and PRN documented in this encounter [facility] Work Phone: 07-29-2025 Miscellaneous Notes Associated Problem(s): Pain of foot - h/o abscess , most recently told has Shayla glabrata - Terbinafine, Fluconazole, Nystatin did not help, could not afford Itraconazole -Per chart review fungal antibody kqbvt-ilfdyosb-8/19/25 - Requesting referrals to specialists as below -Stated podiatry was unable to help Orders: Referral to Vascular Medicine; Future Associated Problem(s): Leg pain, bilateral - charley horses, Livedo reticularis , legs feel twisted up at times [...] to Psychiatry; Future documented in this encounter [facility] Work Phone: 07-29-2025 Telephone encounter Note Please [...] give it a good chance of working. [facility] 07-29-2025 Miscellaneous Notes Please explain to Mr [...] chance of working. documented in this encounter [facility] 07-28-2025 History of Present illness Narrative REASON [...] sob Iodine Rash documented in this encounter [facility] Work Phone: 07-28-2025 Instructions Kobi Short MD [...] in 2 months. documented in this encounter [facility] Work Phone: 07-25-2025 Telephone encounter Note I [...] the mouth/throat. Please call him and explain. [facility] 07-25-2025 Miscellaneous Notes I am not sure [...] him and explain. documented in this encounter [facility] 07-25-2025 Note FYI patient schedule d with PCP 07/27/25. Should patient wait for referral until discussed with New PCP? [facility] 07-25-2025 Telephone encounter Note FYI patient scheduled with PCP 07/27/25. Should patient wait for referral until discussed with New PCP? [facility] 07-25-2025 Miscellaneous Notes FYI patient scheduled with PCP 07/27/25. Should patient wait for referral until discussed with New PCP? Name of caller: Ce (Also Heather from [facility]) Contact phone number: [phone] Relationship to Patient: patient (also [facility]) Provider: Alisa Practice: [facility] Chief Complaint/Reason for Call: Needs new referral with update. 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 Needs to state his legs, feet, and knees has swelling. His skin is blanching. Referral is going to [facility]. Attention Garth Marr. Best time of day caller can be reached: any Patient advised that office/PCP has 24-48 business hours to return their call: Yes documented in this encounter [facility] 07-22-2025 Telephone encounter Note Name of caller: Ce (Also Heather from [facility]) Contact phone number: [phone] Relationship to Patient: patient (also [facility]) Provider: Alisa Practice: [facility] Chief Complaint/Reason for Call: Needs new referral with update. 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 Needs to state his legs, feet, and knees has swelling. His skin is blanching. Referral is going to [facility]. Attention Garth Marr. Best time of day caller can be reached: any Patient advised that office/PCP has 24-48 business hours to return their call: Yes [facility] 07-21-2025 Telephone encounter Note Message released to patient as written. Yes Patient's further questions if applicable: Transferred the patient to the office for previsit planning. Were all questions from office addressed or relayed to the patient from encounter: Yes [facility] 07-21-2025 Miscellaneous Notes Message released to patient as written. Yes Patient's further questions if applicable: Transferred the patient to the office for previsit planning. Were all questions from office addressed or relayed to the patient from encounter: Yes Attempting to reach patient for Pre Charting. If patient returns call, please put call thru to office. Thank You documented in this encounter [facility] 07-21-2025 Telephone encounter Note Attempting to reach patient for Pre Charting. If patient returns call, please put call thru to office. Thank You [facility] 07-19-2025 Note Tho, Would you please add an additional diagnosis for the Dermatology referral. Please advise. Thank you [facility] 07-19-2025 Telephone encounter Note Tho, Would you please add an additional diagnosis for the Dermatology referral. Please advise. Thank you [facility] 07-19-2025 Miscellaneous Notes Tho, Would you please add an additional diagnosis for the Dermatology referral. Please advise. Thank you Name of caller: Ce Contact phone number: [phone] Relationship to Patient: Self Provider: Practice: [facility] Chief Complaint/Reason for Call: Pt is claiming [...] their call: No documented in this encounter [facility] 07-18-2025 Physician Emergency department Note HPI Chief Complaint Patient presents with Migraine Complains of migraine on and off for 2 weeks and intermittent CP as well. Complains of throbbing in the left side of his mandaeism and throat. States that its not hurting [...] Temp Source Heart Rate Source Patient Position 07/18/25202707/18/25202807/18/258 -- 96 % Oral Monitor BP Location [...] Margoth Wisdom 07/18/2025 11:12 PM Dictation workstation: [id number] ED Course & MDM ED Course as of 07/18/252342Jul 18, 20252100 Twelve-lead EKG interpreted by myself at 2030 1 normal sinus rhythm at 64 2 normal axis 3 no ectopy [MS] ED Course User Index [MS] Chloé Ruggiero DO Diagnoses as of 07/18/252342 Oral thrush Thrush Tinea corporis Nonintractable headache, unspecified chronicity pattern, unspecified headache type No data recorded [place] Coma Scale Score: 15 (07/18/252140 : Jacquelyn Elkins RN) Medical Decision Making 1 take medication as prescribed 2 resume home medication 3 follow-up with ssds mk 2 advanced operator, if worse return to ED. Procedure Procedures [...] Drug use: Never Chloé Ruggiero DO 07/18/252342 [facility] Work Phone: 07-18-2025 Emergency department Note HPI Chief Complaint Patient presents with Migraine Complains of migraine on and off for 2 weeks and intermittent CP as well. Complains of throbbing in the left side of his mandaeism and throat. States that its not hurting [...] Margoth Wisdom 07/18/2025 11:12 PM Dictation workstation: [id number] ED Course & MDM ED Course as of 07/18/252342Jul 18, 2025 210 Twelve-lead EKG interpreted by myself at 2030 1 normal sinus rhythm at 64 2 normal axis 3 no ectopy [MS] ED Course User Index [MS] Chloé Ruggiero DO Diagnoses as of 07/18/252342 Oral thrush Thrush Tinea corporis Nonintractable headache, unspecified chronicity pattern, unspecified headache type No data recorded [place] Coma Scale Score: 15 (07/18/25 2141 : Jacquelyn Elkins RN) Medical Decision Making 1 take medication as prescribed 2 resume home medication 3 follow-up with ssds mk 2 advanced operator, if worse return to ED. Procedure Procedures [...] Drug use: Never Chloé Ruggiero DO 07/18/252342 documented in this encounter [facility] Work Phone: 07-15-2025 Telephone encounter Note Name of caller: Ce Contact phone number: [phone] Relationship to Patient: Self Provider: Practice: [facility] Chief Complaint/Reason for Call: Pt is claiming [...] business hours to return their call: No [facility] 07-15-2025 Telephone encounter Note Name of caller: Jermaine Contact phone number: [phone] or [phone] Relationship to Patient: [facility] Provider: Dr. Izquierdo Practice: [facility] Chief Complaint/Reason for Call: Jermaine called to inform office that a PA is not required for CT scan. Best time of day caller can be reached: any Patient advised that office/PCP has 24-48 business hours to return their call: N/A [facility] 07-15-2025 Miscellaneous Notes Name of caller: Jermaine Contact phone number: [phone] or [phone] Relationship to Patient: [facility] Provider: Dr. Izquierdo Practice: [facility] Chief Complaint/Reason for Call: Jermaine called to inform office that a PA is not required for CT scan. Best time of day caller can be reached: any Patient advised that office/PCP has 24-48 business hours to return their call: N/A Name of caller: Ce Contact phone number: [phone] Relationship to Patient: patient Provider: Alisa Practice: [...] their call: No documented in this encounter [facility] 07-15-2025 Telephone encounter Note Name of caller: Ce Contact phone number: [phone] Relationship to Patient: patient Provider: [facility]isa Practice: [...] business hours to return their call: No [facility] 07-14-2025 Telephone encounter Note Please let Mr Baer know that he has a thrush (yeast) infection with Shayla glabrata and I recommend using Nystatin swish and swallow 4 x a day as directed, for 10 d - I want him to please call me after end of therapy to see if his thrush is improved- script sent ot his pharmacy [facility] 07-14-2025 Miscellaneous Notes Please let Mr Baer know that he has a thrush (yeast) infection with Shayla glabrata and I recommend using Nystatin swish and swallow 4 x a day as directed, for 10 d - I want him to please call me after end of therapy to see if his thrush is improved- script sent ot his pharmacy documented in this encounter [facility] 07-14-2025 Telephone encounter Note S: Patient is calling the [facility] with headaches B: Symptom onset: chronic, since May 2025 A: Patient complains of: Has had an unusual migraine for months now, endorses he'd notified [facility] [employer] at 06/22/25 [facility] visit, has previously had suspected migraines that [...] has had severe headaches before Protocols used: [id number] [facility] 07-14-2025 Miscellaneous Notes S: Patient is calling the [facility] with headaches B: Symptom onset: chronic, since May 2025 A: Patient complains of: Has had an unusual migraine for months now, endorses he'd notified [facility] [employer] at 06/22/25 [employer] visit, has previously had suspected migraines that [...] has had severe headaches before Protocols used: [id number] S: [facility] [...] Protocols used: No Contact or Duplicate Contact [id number] documented in this encounter [facility] 07-14-2025 Telephone encounter Note S: Patient called [...] Protocols used: No Contact or Duplicate Contact [id number] [facility] 07-13-2025 Telephone encounter Note Name of caller: Ce Contact phone number: [phone] Relationship to Patient: patient Provider: Dr. Izquierdo Practice: [facility] Chief Complaint/Reason for Call: Ce called in regarding his urethra urology referral. He is requesting that the referral be faxed to the [facility], Dermatology at [phone]. He stated they need pathology results, labs & clinical notes included in the fax with the referral. Please advise, thank you! Best time of day caller can be reached: any Patient advised that office/PCP has 24-48 business hours to return their call: No [facility] 07-13-2025 Miscellaneous Notes Name of caller: Ce Contact phone number: [phone] Relationship to Patient: patient Provider: Dr. Izquierdo Practice: [facility] Chief Complaint/Reason for Call: Ce called in regarding his urethra urology referral. He is requesting that the referral be faxed to the [facility], Derm[facility]ology at [phone]. He stated they need pathology results, labs & clinical notes included in the fax with the referral. Please advise, thank you! Best time of day caller can be reached: any Patient advised that office/PCP has 24-48 business hours to return their call: No documented in this encounter [facility] 07-12-2025 Note Tho, Would you mind placing new external referrals for Gastroenterology and Vascular Surgeon. Patient would like to be seen at [facility]. Thank you, [facility] 07-11-2025 Note Please forward his m Galavantierhart message. I will need the fax numbers to send his referrals. Thank you [facility] 07-11-2025 Telephone encounter Note Please forward his mychart message. I will need the fax numbers to send his referrals. Thank you [facility] 07-11-2025 Miscellaneous Notes Please forward his mychart message. I will need the fax numbers to send his referrals. Thank you Name of caller: Ce Contact phone number: [phone] Relationship to Patient: patient Provider: Dr. Izquierdo Practice: [facility] Chief Complaint/Reason for Call: Patient requesting referrals for Vascular Surgery and Gatroenterology to be faxed to [facility]. Patient states will send fax numbers through [email or web address]. Please advise. Best time of day caller can be reached: any Patient advised that office/PCP has 24-48 business hours to return their call: Yes documented in this encounter [facility] 07-11-2025 Telephone encounter Note Name of caller: Ce Contact phone number: [phone] Relationship to Patient: patient Provider: Dr. Izquierdo Practice: [facility] Chief Complaint/Reason for Call: Patient requesting referrals for Vascular Surgery and Gatroenterology to be faxed to [facility]. Patient states will send fax numbers through [email or web address]. Please advise. Best time of day caller can be reached: any Patient advised that office/PCP has 24-48 business hours to return their call: Yes [facility] 07-11-2025 History of Present illness Narrative Vascular Surgery Outpatient Consultation Chief Complaint Patient presents with New Patient (ref Scott Cuellar DIRECTOR QUALITY SYSTEMS) DIRECTOR QUALITY SYSTEMS eval for mutliple complaints- poss Buerger's dz, [...] min Stress: No Stress Concern Present (06/14/2025) [facility] [facility] [employer] - Occupational Stress Questionnaire Feeling of Stress : Not at all Social Connections: Moderately Integrated (06/14/2025) Social Connection and Isolation Panel [NHANES] Frequency of Communication with Friends and Family: Twice a week Frequency of Social Gatherings with Friends and Family: Once a week Attends Taoist Services: More than 4 times per year [...] PLT 224 06/15/2025 No results found for: INR, PROTIME No results found for: VLDL Physical Exam General: no apparent distress, resting [...] type II Father documented in this encounter [facility] 07-11-2025 Note Vascular Surgery Out patient Consultation Chief Complaint Patient presents with New Patient (ref Scott Cuellar DIRECTOR QUAL[employer] SYSTEMS) DIRECTOR QUALITY SYSTEMS eval for mutliple complaints- poss Buerger's dz, [...] min Stress: No Stress Concern Present (06/14/2025) [employer] [facility] [employer] - Occupational Stress Questionnaire Feeling of Stress : Not at all Social Connections: Moderately Integrated (06/14/2025) Social Connection and Isolation Panel [NHANES] Frequency of Communication with Friends and Family: Twice a week Frequency of Social Gatherings with Friends and Family: Once a week Attends Taoist Services: More than 4 times per year [...] Positive for vi (more content not included)... [facility] 07-08-2025 [facility]phone [facility] Note . [facility] Miscellaneous Notes . documented in this encounter [facility] 07-08-2025 Telephone encounter Note Name of caller: Ce Baer Relationship to patient: patient Contact phone number: [phone] Speciality referral requested for: Vascular specialist Diagnosis [...] verified insurance covers referral: Unknown Patient insurance: [facility] Medicare/Medicaid Has patient seen this specialist in the past: No Estimated time/date patient last saw the specialist: NA [facility] 07-08-2025 Miscellaneous Notes Name of caller: Ce Baer Relationship to patient: patient Contact phone number: [phone] Speciality referral requested for: Vascular specialist Diagnosis [...] verified insurance covers referral: Unknown Patient insurance: [facility] Medicare/Medicaid Has patient seen this specialist in the past: No Estimated time/date patient last saw the specialist: NA documented in this encounter [facility] 07-07-2025 Telephone encounter Note Please let Mr [...] no bone infection that could be recurring. [facility] 07-07-2025 Miscellaneous Notes Please let Mr Baer [...] could be recurring. documented in this encounter [facility] 07-04-2025 History of Present illness Narrative Images from the original note were not included. [facility] Infectious Diseases Attending Outpatient Consult [...] up his left lateral leg. 03/17/25 seen [facility] [place] ER for a pain between L [...] show discoloration and swelling. Then went to [facility] ED on 03/19/25 with CP but left w/o evaluation. That is when his parents took him to [place] for evaluation and was diagnosed with pneumonia He went to [facility] ED on 06/15/25 for c/o rectal bleeding and blood in urine. He told ER physician that he had seen environmental doctors who told him that he had multiple [...] chart review shows records in 2021 at [facility] documenting prior episodes of low energy, [...] min Stress: No Stress Concern Present (06/14/2025) [employer] [facility] [employer] - Occupational Stress Questionnaire Feeling of Stress : Not at all Social Connections: Moderately Integrated (06/14/2025) Social Connection and Isolation Panel [NHANES] Frequency of Communication with Friends and Family: Twice a week Frequency of Social Gatherings with Friends and Family: Once a week Attends Taoist Services: More than 4 times per year [...] lb 6.4 oz) Height: 1.753 m (5' 9) Physical Exam Vitals and nursing note reviewed. [...] Cellulitis of all toes of left foot [facility] Infectious Disease C-reactive protein Foot looks benign [...] instructing the patient on self care. Hardik Anna MD, MSc, FACP [1] Past Medical History: [...] type II Father documented in this encounter [facility] 06-28-2025 History of Present illness Narrative Patient still experiencing symptoms with oral intake. Will trial protonix while awaiting GI appointment. documented in this encounter [facility] 06-27-2025 History of Present illness Narrative Images [...] the swelling resolved 03/2025 - MERE at [place] showed cysts in testicles, not epididymitis Has [...] colonoscopy Colonoscopy scheduled in August ([facility] in [place]) with GI Abdomen will bloat Not sexually [...] Size: Large adult) Pulse 92 Ht 5' 9 (1.753 m) Wt 219 lb (99.3 kg) [...] min Stress: No Stress Concern Present (06/14/2025) [employer] [facility] [employer] - Occupational Stress Questionnaire Feeling of Stress : Not at all Social Connections: Moderately Integrated (06/14/2025) Social Connection and Isolation Panel [NHANES] Frequency of Communication with Friends and Family: Twice a week Frequency of Social Gatherings with Friends and Family: Once a week Attends Taoist Services: More than 4 times per year [...] type II Father documented in this encounter [facility] 06-27-2025 History of Present illness Narrative Images [...] the swelling resolved 03/2025 - MERE at [place] showed cysts in testicles, not epididymitis Has [...] colonoscopy Colonoscopy scheduled in August ([facility] in [place]) with GI Abdomen will bloat Not sexually [...] Size: Large adult) Pulse 92 Ht 5' 9 (1.753 m) Wt 219 lb (99.3 kg) [...] min Stress: No Stress Concern Present (06/14/2025) [employer] - Occupational Stress Questionnaire Feeling of Stress : Not at all Social Connections: Moderately Integrated (06/14/2025) Social Connection and Isolation Panel [NHANES] Frequency of Communication with Friends and Family: Twice a week Frequency of Social Gatherings with Friends and Family: Once a week Attends Taoist Services: More than 4 times per year [...] type II Father documented in this encounter [facility] 06-27-2025 Instructions Scott Santamaria MD - 06/27/2025 11:00 AM EDT Headache in the pelvis (book) documented in this encounter [facility] 06-24-2025 Note Noted, see imaging r eferral and media for updates. [facility] 06-24-2025 Telephone encounter Note Noted, see imaging referral and media for updates. [facility] 06-24-2025 Miscellaneous Notes Noted, see imaging referral and media for updates. Your patient has been scheduled for their ct on 07/08/25 at [facility]. If testing requires an insurance authorization, the authorization must be in place 48 hours prior to the scheduled test or testing will be cancelled. Thank you, [facility] documented in this encounter [facility] 06-24-2025 Telephone encounter Note Your patient has been scheduled for their ct on 07/08/25 at [facility]. If testing requires an insurance authorization, the authorization must be in place 48 hours prior to the scheduled test or testing will be cancelled. Thank you, [facility] 06-22-2025 History of Present illness Narrative Images [...] visit No HI or SI Orders: - [facility] Psychiatry 3. Primary hypertension Comments: Labs ordered [...] of kidney stones Ultrasound ordered Orders: - [facility] Urology - US scrotum 8. Lipid screening [...] 36.9 C (98.4 F) (Temporal) Ht 5' 9 (1.753 m) Wt 219 lb (99.3 kg) [...] type II Father documented in this encounter [facility] 06-22-2025 Miscellaneous Notes Addended by: SCOTT CUELLAR on: 06/28/2025 02:29 PM Modules accepted: Level of Service documented in this encounter [facility] 06-22-2025 Note Addended by: SCOTT CUELLAR on: 06/28/2025 02:29 PM Modules accepted: Level of Service [facility] 06-15-2025 Emergency department Note Pt. Outside of [...] ED. Pt. Reported that the nurse and other lady were nice but that the provider was rude and confrontational. Pt. Stated that he could hear the doctors demeanor with the patient in room 14 and said that it was completely different than how the doctor approached and spoke to him. Pt. Stated being angry that he keeps going to emergency departments and I don't feel good and I know that I'm sick and no one helps me. Pt. Also reports being told to come to the ER. By urgent cares and pt. Nurse lines. IV was removed. Pt. Was given the number for [facility] Customer Service and advised to call them the next day in order to process his complaint. The patient and his family member had deescalated by the time this nurse walked them out to the [facility]. Provider notified. Boiler/Chiller Operator notified. [facility] 06-15-2025 Emergency department Note Pt. Outside of [...] ED. Pt. Reported that the nurse and other lady were nice but that the provider was rude and confrontational. Pt. Stated that he could hear the doctors demeanor with the patient in room 14 and said that it was completely different than how the doctor approached and spoke to him. Pt. Stated being angry that he keeps going to emergency departments and I don't feel good and I know that I'm sick and no one helps me. Pt. Also reports being told to come to the ER. By urgent cares and pt. Nurse lines. IV was removed. Pt. Was given the number for [facility] Customer Service and advised to call them the next day in order to process his complaint. The patient and his family member had deescalated by the time this nurse walked them out to the [facility]. Provider notified. Boiler/Chiller Operator notified. EMERGENCY DEPARTMENT ENCOUNTER Pt Name: Ce [...] 180 mg by mouth daily., Starting [facility] 07/29/2024, Historical Med fluticasone (Flonase Allergy Relief) [...] EKG interpretation can be found below in [facility] RADIOLOGY (Per Emergency Physician): As per below in [facility] section Interpretation per the Radiologist below, if [...] kg (210 lb) Height: 1.753 m (5' 9) Diagnoses as of 06/16/25 0156 Eloped from [...] the nurse told the doctor. He mentions do you all not communicate to eachother here. What type of place is this. Before I could explain he came in prior to shift change patient continues to get agitated. I asked why the patient is getting angry. Ultimately patient says I don't like your tone and is now requesting the removal of [...] min Stress: No Stress Concern Present (06/14/2025) [employer] - Occupational Stress Questionnaire Feeling of Stress : Not at all Social Connections: Moderately Integrated (06/14/2025) Social Connection and Isolation Panel [NHANES] Frequency of Communication with Friends and Family: Twice a week Frequency of Social Gatherings with Friends and Family: Once a week Attends Taoist Services: More than 4 times per year [...] light within reach. documented in this encounter [facility] 06-15-2025 Emergency department Triage note Patient is [...] pain or symptoms. Call light within reach. [facility] 06-15-2025 Physician Emergency department Note EMERGENCY DEPARTMENT [...] EKG interpretation can be found below in [facility] RADIOLOGY (Per Emergency Physician): As per below in [facility] section Interpretation per the Radiologist below, if [...] kg (210 lb) Height: 1.753 m (5' 9) Diagnoses as of 06/16/25 0156 Eloped from [...] the nurse told the doctor. He mentions do you all not communicate to eachother here. What type of place is this. Before I could explain he came in prior to shift change patient continues to get agitated. I asked why the patient is getting angry. Ultimately patient says I don't like your tone and is now requesting the removal of [...] min Stress: No Stress Concern Present (06/14/2025) [employer] - Occupational Stress Questionnaire Feeling of Stress : Not at all Social Connections: Moderately Integrated (06/14/2025) Social Connection and Isolation Panel [NHANES] Frequency of Communication with Friends and Family: Twice a week Frequency of Social Gatherings with Friends and Family: Once a week Attends Taoist Services: More than 4 times per year [...] Year: Yes Joycelyn Nelson DO 06/16/25 0156 [facility] 06-13-2025 Telephone encounter Note S: Caller spoke [...] up. Caller states he went to the [facility], hasn't seen a PCP in a couple [...] 4 weeks) Protocols used: Weakness (Generalized) and Ydnomri-XNRWT-[id number] [facility] 06-13-2025 Miscellaneous Notes S: Caller spoke with [...] up. Caller states he went to the [facility], hasn't seen a PCP in a couple [...] 4 weeks) Protocols used: Weakness (Generalized) and Gvmxfog-NDANF-ZG documented in this encounter [facility] 03-22-2025 Note Pt called me back, I informed him of my previous msg. Pt said he called the hospital in [place] and he will be working on getting the needed referral. [facility] 03-15-2025 Radiology Diagnostic study note [facility] Imaging Services [address] [place] [address] Foot min 3 Views MR#: [id number] Acct: [id number] Name: CE BAER MELANIE Rep #: [id number] : 1985 M 39 From: Roberto Carlos Reyna MD PCP: Dr. Elizabeth Argueta DO Status: REG ER Study:Foot min 3 Views Date of Exam: Exam# [id number] Ordering Dr: David Cortes DO EXAM: Foot [...] possible sesamoid formation, clinically correlate. Reading Location: [facility] CC: Dr. Elizabeth Argueta DO; Dr. Claude Cortes DO ~ Ged Preparation Teacher: Signed [facility] 02-13-2025 History of Present illness Narrative Radiology Service [...] PATIENT PRESENTS WITH AN IMPLANTABLE OR ATTACHED CUSTOMS IMPORT SPECIALIST: No RADIOLOGY DEPARTMENT: General X-ray: Exam(s) Completed: Chest X-Ray PERIPHERAL IV DATA: Not applicable SIGNED BY: Krissy Hadley January 13, 2025 6:55 PM documented in this encounter [facility] 01-13-2025 Note HNO ID: [id number] Author: VICTORIA ALVES Tech Service: ? Author [...] PATIENT PRESENTS WITH AN IMPLANTABLE OR ATTACHED CUSTOMS IMPORT SPECIALIST: No RADIOLOGY DEPARTMENT: General X-ray: Exam(s) Completed: Chest X-Ray PERIPHERAL IV DATA: Not applicable SIGNED BY: Krissy Hdaley January 13, 2025 6:55 PM [facility] 01-12-2025 Note HNO ID: [id number] Author: CE WOOD MD Service: ? Author Type: Physician Type: Progress Notes Filed: 01/12/2025 16:25 Note Text: [facility] NEW PATIENT ENCOUNTER Consultation requested by Dr. [...] of Systems LAB No results found for: PSA, PSASC Creatinine Date Value Ref Range Status 03/28/2022 0.87 0.73 - 1.22 mg/dL Final No results found for: UGLUCPOC, UBILIPOC, UKETONPOC, USGPOC, UHBPOC, UPHPOC, UPROPOC, UUROPOC, UNITPOC, UWBCPOC, UCOLPOC, UCLARPOC] MEDICATIONS fexofenadine (VIVI ALLERGY) 180 mg tablet Take 1 tablet by mouth once daily. triamcinolone acetonide (NASACORT) 55 mcg nasal inhaler Use 2 Sprays in the nose once daily. HISTORIES PAST MEDICAL HISTORY Diagnosis Date Adenomatous colon polyp Bipolar 1 disorder (HCC) 07/21/2019 Depression Headache History of alcohol use disorder 2018 History of substance abuse ([facility]) 2005 Hypertension 07/20/2019 PAST SURGICAL HISTORY Procedure [...] quit age 20. Ht 175.3 cm (5' 9) Wt 95.3 kg (210 lb) BMI 31.01 [...] meaning may be extrapolated by contextual derivation. [facility] 01-12-2025 History of Present illness Narrative Images from the original note were not included. [facility] NEW PATIENT ENCOUNTER Consultation requested by Dr. [...] of Systems LAB No results found for: PSA, PSASC Creatinine Date Value Ref Range Status 03/28/2022 0.87 0.73 - 1.22 mg/dL Final No results found for: UGLUCPOC, UBILIPOC, UKETONPOC, USGPOC, UHBPOC, UPHPOC, UPROPOC, UUROPOC, UNITPOC, UWBCPOC, UCOLPOC, UCLARPOC] MEDICATIONS fexofenadine (VIVI ALLERGY) 180 mg tablet [...] quit age 20. Ht 175.3 cm (5' 9) Wt 95.3 kg (210 lb) BMI 31.01 [...] by contextual derivation. documented in this encounter [facility] 07-29-2024 History of Present illness Narrative This note was created using NoteWriter. Subjective Ce Baer II is a 39 [...] presence of mold. Patient wants tested for mold poisoning. Went to ER in [place] last Friday, [...] 126/81 Pulse 65 Ht 174 cm (5' 8.5) Wt 98 kg (216 lb 0.8 oz) [...] medications daily. Encouraged to continue working with [facility] for complete remediation of mold. - CONSULT TO PULMONARY MEDICINE - XR CHEST 2V FRONTAL/LAT - fexofenadine (VIVI ALLERGY) 180 mg tablet; Take 1 tablet by mouth once daily. Dispense: 30 tablet; Refill: 2 - triamcinolone acetonide (NASACORT) 55 mcg nasal inhaler; Use 2 Sprays in the nose once daily. Dispense: 16.9 mL; Refill: 0 4. Cigarette nicotine dependence without complication Trying to quit, down to 2-3x/day from 1 PPD Marcos Bee APRN.SILVERWARE BUFFING MACHINE OPERATOR documented in this encounter [facility] 07-29-2024 Telephone encounter Note S: Patient spoke with [facility] nurse regarding breathing issues due to black [...] Heath CNP. Insurance verified with patient as [facility]. Advised patient to bring photo ID, insurance [...] and SAME as normal Protocols used: Breathing Ookjxsetbs-BBLIB-FT [facility] 07-29-2024 Miscellaneous Notes S: Patient spoke with [facility] nurse regarding breathing issues due to black [...] Heath CNP. Insurance verified with patient as [facility]. Advised patient to bring photo ID, insurance [...] and SAME as normal Protocols used: Breathing Dzrkudkifb-TEJBQ-BU documented in this encounter [facility] 07-28-2024 Telephone encounter Note Spoke with patient. He wants to establish care to have mold testing done. Was advised by PSS that first available new patient appointment in [place] is in August. Advised patient we can check for sooner appointment with provider anywhere within [facility]. He is agreeable. Transferred to welder fitter arc. Brittani Dyer RN [facility] 07-28-2024 Miscellaneous Notes Spoke with patient. He wants to establish care to have mold testing done. Was advised by PSS that first available new patient appointment in [place] is in August. Advised patient we can check for sooner appointment with provider anywhere within [facility]. He is agreeable. Transferred to welder fitter arc. Brittani Dyer RN patient called in this morning and [...] demanded someone in management so I offered rosamaria. documented in this encounter [facility] 07-28-2024 Telephone encounter Note patient called in [...] demanded someone in management so I offered rosamaria. [facility] 11-13-2022 History of Present illness Narrative This note was created using [employer]. Subjective Ce Baer II is a 37 [...] use disorder 2018 History of substance abuse ([facility]) 2005 Hypertension 07/20/2019 Current Outpatient Medications Medication Sig Dispense Refill multivit with iron,minerals (MULTIVITAMIN AND MINERALS ORAL) Take by mouth once daily. Ocmzcogzbbrtlpu-Pgigzehjm-AO (BROMFED DM) 2-30-10 mg/5 mL syrup Take [...] Lesli Cano PA-C documented in this encounter [facility] 11-13-2022 History of Present illness Narrative Radiology [...] 2022 10:55 AM documented in this encounter [facility] 06-24-2022 Miscellaneous Notes Noted, he is not a patient of Dr. Smith any longer per his previous request. Rosa Bronson APRN.LOKI Patient calling he said he is still having abdominal pain for past 3 and one half years. He had gone for colonoscopy in [facility]. He is still losing weight and down 168 pounds now. Patient thinks it is a gall bladder issue, he has several family members that have had to have their gall bladders removed. He plans to establish care out of network in [facility], not with [facility] facility. He will ask to have ultrasound of gall bladder done. Patient said he is not sure why he has never had ultrasound done with with Gastro or DIRECTOR QUALITY SYSTEMS appts. documented in this encounter [facility] 04-02-[address] Moraes at bedside to speak to patient. Verbalizes understanding. documented in this encounter [facility] 04-02-2022 History and physical note HISTORY AND [...] Shahid Moraes MD documented in this encounter [facility] 03-21-2022 Instructions Casandra Mcdaniel APRN.SILVERWARE BUFFING MACHINE OPERATOR - 03/21/2022 4:25 PM EDT Images from the original note were not included. Your procedure will be at [place] Follow the provided instructions for colonoscopy. You [...] pears Insoluble fiber: often referred to as roughage because it does not dissolve in water. [...] order for a product to be labeled high fiber, it must contain 5 grams or more [...] Light white/wheat Marie-Whole wheat Pumpernickel Whole wheat [place] 3 1/2 inches 2 slices 7 inches [...] Squash (winter) Green peas, cooked [place] beans [place], cooked 1/2 cup 1/2 cup 1/2 cup 1 medium 1/2 cup 1/2 cup 1/2 cup 1/2 cup 1/2 cup 4 6 5 3 4 3 4 7 2 1 3 1 1 2 2 1 3 trace Nuts and Seeds Almonds Peanuts [place] seeds Walnuts 1/4 cup 1/4 cup 1/4 cup 1/4 cup 3 3 3 2 1 1 1 trace Fruits Apple with skin Banana Blueberries Grapefruit Russell Pear with skin Prunes Strawberries 1 medium 1 medium 1 cup 1/2 cup 1 medium 1 medium 3 1 cup 3 2 2 1 3 4 2 4 1 1 trace 1 2 2 1 1 Vegetables, non-starchy Broccoli [place] sprouts Cabbage-green Carrot Cauliflower Green beans Kale Spinach Squash (zucchini) 1/2 cup 1/2 cup 1 cup, fresh 1/2 cup cooked 1/2 cup cooked 1/2 cup 1/2 cup 1/2 cup 1/2 cup 3 4 2 2 1 2 3 2 1 1 2 1 1 trace 1 1 1 1 Copyright 7691-9412 [employer] [facility]. All rights reserved. This information is provided by the [facility] and is not intended to replace the medical advice of your doctor or health care provider. Please consult your health care provider for advice about a specific medical condition. For additional health information, please contact the Center for Consumer Health Information at the [facility] or toll-free extension [phone]. If you prefer, you may visit [email or web address] or [email or web address]. This document was last reviewed on: 2010 index#31992 Bowel Preparation Instructions for: Golytely, Nulytely, Trilyte [...] If you do not have a responsible courier delivery driver (family member or friend) with you [...] preparation solution at your local pharmacy or [facility]. 10/2019 Bowel Preparation Instructions for: Golytely, [...] to (three) 3 hours before your exam. 10/2019 documented in this encounter [facility] 03-21-2022 History of Present illness Narrative CHIEF COMPLAINT: Patient presents with: Abdominal cramping: Alternating constipation/diarrhea, weight loss This consult was requested by Margarito Smith MD for an opinion regarding unintentional weight loss. My final recommendations will be communicated to the requesting health care provider by way of the shared medical record for internal providers or letter via the [employer] for external providers. HPI: Ce [...] MEDICAL HISTORY Diagnosis Date Bipolar 1 disorder (HCC) 07/21/2019 Depression Headache History of alcohol use disorder 2017 History of substance abuse (HCC) 2005 Hypertension [...] Examination: BP 139/86 Pulse 71 Ht 5' 8.5 (1.74m) Wt 212 lb (96.2kg) BMI 31.76 [...] with more than 50% of the total virg-rr-jirh time of the visit in counseling / coordination of care. I have confirmed and edited as necessary, the PFSH and ROS obtained by others. Casandra Mcdaniel APRN.CNP DATE: 03/21/22 TIME: 12:00 PM documented in this encounter [facility] Evaluation + Plan note No data available for this section [facility] Evaluation note Diagnosis Generalized abdominal pain- Primary Abdominal pain, generalized Bloating Flatulence, eructation, and gas pain Constipation, unspecified constipation type Unintentional weight loss Loss of weight [facility] Diagnosis Generalized abdominal pain Abdominal pain, generalized Bloating Flatulence, eructation, and gas pain Unintentional weight loss Loss of weight Constipation, unspecified constipation type [facility] noteNo assessment information availableF[facility] Work Phone: Evaluation note* Diagnosis Suspected COVID-19 virus infection- Primary [facility] Diagnosis Chronic cough- Primary Cough Contact with or exposure to mold Environmental allergies Other allergy, other than to medicinal agents Cigarette nicotine dependence without complication Tobacco use disorder [facility] Diagnosis Suspected COVID-19 virus infection [facility]* Diagnosis Frequent urination- Primary Urinary frequency Epididymo-orchitis Orchitis and epididymitis, unspecified Renal stones Calculus of kidney Hypertrophy of prostate with urinary obstruction Hypertrophy of prostate with urinary obstruction and other lower urinary tract symptoms (LUTS) Incomplete bladder emptying Recurrent UTI Urinary tract infection, site not specified [facility]* Diagnosis Eloped from emergency department- Primary Aggressive behavior Explosive personality disorder [facility] Other microscopic hematuria [facility] Diagnosis Right testicular pain- Primary Pelvic floor dysfunction Slow transit constipation [facility] Diagnosis Encounter for routine history and physical exam for male- Primary Bipolar 1 disorder (HCC) Primary hypertension Unspecified essential hypertension Fatigue, unspecified type Arthralgia, unspecified joint Acute gastroenteritis Other and unspecified noninfectious gastroenteritis and colitis Pain in both testicles Lipid screening Screening for lipoid disorders Other microscopic hematuria Other microscopic hematuria [facility] Diagnosis Pain in both testicles [facility] Diagnosis Right testicular pain- Primary Pelvic floor dysfunction Slow transit constipation [facility] Diagnosis Gastroesophageal reflux disease, unspecified whether esophagitis present- Primary Fatigue, unspecified type Acute gastroenteritis Other and unspecified noninfectious gastroenteritis and colitis [facility] Diagnosis Cellulitis of all toes of left foot- Primary Encounter for generalized patient complaints Chronic night sweats Environment contains mold Arthralgia, unspecified joint History of blood clots Bipolar 1 disorder (HCC) Class 1 obesity due to excess calories without serious comorbidity with body mass index (BMI) of 32.0 to 32.9 in adult [facility] Diagnosis Cellulitis of all toes of left foot Arthralgia, unspecified joint Class 1 obesity due to excess calories without serious comorbidity with body mass index (BMI) of 32.0 to 32.9 in adult [facility] Diagnosis Leg pain, bilateral- Primary Pain in soft tissues of limb Bilateral leg paresthesia Disturbance of skin sensation [facility] Diagnosis 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 [facility] Diagnosis Oral thrush- Primary Candidiasis of mouth Thrush Candidiasis of mouth Tinea corporis Dermatophytosis of the body Nonintractable headache, unspecified chronicity pattern, unspecified headache type documented in this encounter [facility] Work Phone: Evaluation note* Diagnosis Thromboangiitis obliterans (Buerger's disease) (HCC) documented [facility] this encounter [facility]* Diagnosis Thromboangiitis obliterans (Buerger's disease) (HCC) documented in this encounter [facility]* Diagnosis History of adenomatous polyp of colon- Primary Personal history of colonic polyps Irritable bowel syndrome with constipation Irritable bowel syndrome Bloating Flatulence, eructation, and gas pain documented in this encounter [facility] Work Phone: Evaluation note* Diagnosis Left foot pain- Primary Pain in soft tissues of limb Discoloration of skin of foot Leg pain, bilateral Pain in soft tissues of limb Candidal skin infection Bipolar 1 disorder (Multi) Obsessive-compulsive disorder, unspecified type Allergic reaction to drug, sequela documented in this encounter [facility] Work Phone: Evaluation note* Diagnosis 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- Primary 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 documented in this encounter [facility]* Diagnosis Left foot pain- Primary Pain in soft tissues of limb Discoloration of skin of foot Leg pain, bilateral Pain in soft tissues of limb Candidal skin infection Bipolar 1 disorder (Multi) Obsessive-compulsive disorder, unspecified type Allergic reaction to drug, sequela Palpitations- Primary Chest pain, unspecified type documented in this encounter [facility] Work Phone: Evaluation note* Diagnosis Left foot [...] aches Muscle cramps documented in this encounter [facility] Work Phone: Evaluation note* Diagnosis Encounter for [...] Palpitations- Primary [facility] No data available for this section [facility] Discharge instructions Additional Instructions Continue your Bactrim and Keflex as prescribed until gone.[facility] Work Phone: Hospital Discharge instructions* Attachments The following attachments cannot be sent through Care Everywhere. * Home Headache Remedies (Thai) [facility] Progress note No data available for this section [facility] Reason for referral (narrative)* Outpatient Procedure (Routine) - Closed Specialty Diagnoses / Procedures Referred By Contac t Referred To Contact ENDOSCOPY Diagnoses Generalized abdominal pain Bloating Constipation, unspecified constipation type Unintentional weight loss Procedures COLONOSCOPY DIAGNOSTIC COLONOSCOPY FLX DX W/COLLJ SPEC WHEN PFRMD Casandra Mcdaniel APRN.CNP [address] [place] [address] [facility] [address] [place] [address] Referral ID Status Reason Start Date Expiration Date V isits Requested Visits Authorized [id number] Closed Auto-Generate d Referral 03/21/2022 03/21/2023 1 1 * Outpatient Procedure (Routine) - Closed Specialty Diagnoses / Procedures Referred By Contac t Referred To Contact ENDOSCOPY Diagnoses Generalized abdominal pain Bloating Unintentional weight loss Procedures EGD DIAGNOSTIC ESOPHAGOGASTRODUODENOSCOPY TRANSORAL DIAGNOSTIC Mcdaniel, Casandra, HOSPICE MANAGER.SILVERWARE BUFFING MACHINE OPERATOR [address] [place] [address] [address] [place] [address] Referral ID Status Reason Start Date Expiration Date V isits Requested Visits Authorized [id number] Closed Auto-Generate d Referral 04/02/2022 07/01/2022 1 1 [facility] for referral (narrative)* Outpatient Procedure (Routine) - Closed Specialty Diagnoses / Procedures Referred By Contac t Referred To Contact ENDOSCOPY Diagnoses Generalized abdominal pain Bloating Constipation, unspecified constipation type Unintentional weight loss Procedures COLONOSCOPY DIAGNOSTIC COLONOSCOPY FLX DX W/COLLJ SPEC WHEN PFRMD Casandra Mcdaniel APRN.SILVERWARE BUFFING MACHINE OPERATOR [address] [place] [address] [address] [place] [address] Referral ID Status Reason Start Date Expiration Date V isits Requested Visits Authorized [id number] Closed Auto-Generate d Referral 03/21/2022 03/21/2023 1 1 * Outpatient Procedure (Routine) - Closed Specialty Diagnoses / Procedures Referred By Contac t Referred To Contact ENDOSCOPY Diagnoses Generalized abdominal pain Bloating Unintentional weight loss Procedures EGD DIAGNOSTIC ESOPHAGOGASTRODUODENOSCOPY TRANSORAL DIAGNOSTIC Casandra Mcdaniel APRN.SILVERWARE BUFFING MACHINE OPERATOR [address] [place] [address] [address] [place] [address] Referral ID Status Reason Start Date Expiration Date V isits Requested Visits Authorized [id number] Closed Auto-Generate d Referral 04/02/2022 07/01/2022 1 1 [facility] for referral (narrative)No reason for referral information availableWMarymount Hospital Work Phone: Reason for visit Narrative* Outpatient Procedure (Routine) - Closed Specialty Diagnoses / Procedures Referred By Mauricio t Referred To Contact ENDOSCOPY Diagnoses Generalized abdominal pain Bloating Constipation, unspecified constipation type Unintentional weight loss Procedures COLONOSCOPY DIAGNOSTIC COLONOSCOPY FLX DX W/COLLJ SPEC WHEN PFRMD Casandra Mcdaniel APRN.CNP [address] [place] [address] [facility] [address] [place] [address] Referral ID Status Reason Start Date Expiration Date V isits Requested Visits Authorized [id number] Closed Auto-Generate d Referral 03/21/2022 03/21/2023 1 1 [facility] for visit Narrative* Imaging (Routine) - Closed Specialty Diagnoses / Procedures Referred By Mauricio t Referred To Contact Radiology Diagnoses Other microscopic hematuria Procedures CT abdomen pelvis wo IV contrast Scott Cuellar APRN - CNP [address] [place] [address] Phone: tel: fax: [facility] [place] [address] [place] [address] Phone: tel: fax: Referral ID Status Reason Start Date Expiration Date Visits Re quested Visits Authorized [id number] Closed 06/22/2025 06/22/2026 1 1 [facility] for visit Narrative* Imaging (Routine) - Closed Specialty Diagnoses / Procedures Referred By Mauricio t Referred To Contact Radiology Diagnoses 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 Procedures CT head wo IV contrast Scott Cuellar APRN - CNP [address] [place] [address] Phone: tel: fax: [facility] [place] [address] [place] [address] Phone: tel: fax: Referral ID Status Reason Start Date Expiration Date Visits Re quested Visits Authorized Closed 07/14/2025 07/14/2026 1 1 [facility] N[facility]* Imaging (Routine) - Closed Specialty Diagnoses / Procedures Referred By Contac t Referred To Contact Cardiology Diagnoses Thromboangiitis obliterans (Buerger's disease) (HCC) Procedures Vascular US upper extremity arterial PVR Scott Cuellar APRN - CNP [address] [place] [address] Phone: tel: fax: Referral ID Status Reason Start Date Expiration Date Visits Re quested Visits Authorized Closed 07/14/2025 07/14/2027 1 1 [facility] N[facility]* Imaging (Routine) - Closed Specialty Diagnoses / Procedures Referred By Contac t Referred To Contact Cardiology Diagnoses Thromboangiitis obliterans (Buerger's disease) (HCC) Procedures Vascular US lower extremity arterial PVR/BLANK W/O Exercise Vascular US lower extremity arterial PVR/BLANK with exercise Scott Cuellar APRN - SILVERWARE BUFFING MACHINE OPERATOR [address] [place] [address] Phone: tel: fax: Referral ID Status Reason Start Date Expiration Date Visits Re quested Visits Authorized Closed 07/14/2025 07/14/2027 1 1 [facility] Summary Purpose Family History No Family History [...] FoundDocuments on File Type Date Recorded Patient Neurology Physician Expl anation Advance Directive(s) 04/02/2022 12:10 PM Documents on File Type Date Recorded Patient Neurology Physician Expl anation Advance Directive(s) 04/02/2022 12:10 PM Advance Directive Response Recorded Date/ Time Living Will No July 09, 2022 9:06am Power of Security Analyst No July 09 9:06am Advance Directive Response Recorded Date/ Time Living Will No August 10, 2022 12:12am Power of Security Analyst No August 12:12am Advance Directive Response Recorded Date/ Time Living Will No November 28 024 11:30am Do you have a Healthcare Power of Security Analyst? No November 28, 2024 11:30am Living Will No March 15, 2025 4:53am Do you have a Healthcare Power of Security Analyst? No March 15, 2025 4:53am Advance Directive Response Recorded Date/ Time Living Will No November 28 11:30am Do you have a Healthcare Power of Security Analyst? No November 28, 2024 11:30am Living Will No March 16, 2025 4:13pm Do you have a Healthcare Power of Security Analyst? No March 16, 2025 4:13pm Living Will No March 15, 2025 4:53am Do you have a Healthcare Power of Security Analyst? No March 15, 2025 4:53am Advance Directive Response Recorded Date/ Time Living Will No November 28 11:30am Do you have a Healthcare Power of Security Analyst? No November 28, 2024 11:30am Living Will No March 16, 2025 4:13pm Do you have a Healthcare Power of Security Analyst? No March 16, 2025 4:13pm Living Will No March 19, 2025 4:32am Do you have a Healthcare Power of Security Analyst? No March 19, 2025 4:32am Living Will No March 15, 2025 4:53am Do you have a Healthcare Power of Security Analyst? No March 15, 2025 4:53am Healthcare Agents on File Name Relationship Healthcare Agent Relationshi p Communication Codie Baer [facility] Health Care Agent Healthcare Agents on File Name Relationship Healthcare Agent Relationshi p Communication Codie Baer [facility] Health Care Agent Healthcare Agents on File Name Relationship Healthcare Agent Relationshi p Communication Codie Perez Health Care Agent Chief Complaint and Reason [...] section and content) DATE CREATED AUTHOR 02/07/2019 [facility] ([place]) DATE CREATED AUTHOR AUTHOR'S ORGANIZ ATION 03/17/2025 [facility] DATE CREATED AUTHOR AUTHOR'S ORGANIZ ATION 03/24/2025 [facility] DATE CREATED AUTHOR AUTHOR'S ORGANIZ ATION 04/28/2025 [facility] DATE CREATED AUTHOR AUTHOR'S ORGANIZ ATION 07/18/2025 [facility] DATE CREATED AUTHOR AUTHOR'S ORGANIZ ATION 08/17/2025 [facility] DATE CREATED AUTHOR AUTHOR'S ORGANIZ ATION 08/20/2025 [facility] DATE CREATED AUTHOR AUTHOR'S ORGANIZ ATION 09/28/2025 [facility] DATE CREATED AUTHOR AUTHOR'S ORGANIZ ATION 10/02/2025 [facility] DATE CREATED AUTHOR AUTHOR'S ORGANIZ ATION 10/05/2025 [facility] DATE CREATED AUTHOR AUTHOR'S ORGANIZ ATION 10/07/2025 [facility] DATE CREATED AUTHOR AUTHOR'S ORGANIZ ATION 10/07/2025 [facility] DATE CREATED AUTHOR AUTHOR'S ORGANIZ ATION 10/13/2025 [facility] Source Comments (unrecognize d section and content) In the event this informatio n is protected by the Federal Confidentiality of Alcohol and Drug Abuse Patient Records regulations: The Federal rules restrict any use of the information to criminally investigate or prosecute any alcohol or drug abuse patient.[facility] the event this information is protected by the Federal Confidentiality of Alcohol and Drug Abuse Patient Records regulations: The Federal rules restrict any use of the information to criminally investigate or prosecute any alcohol or drug abuse patient.[facility] the event this information is protected by the Federal Confidentiality of Alcohol and Drug Abuse Patient Records regulations: The Federal rules restrict any use of the information to criminally investigate or prosecute any alcohol or drug abuse patient.[facility] Institute[facility] the event this information is protected by the Federal Confidentiality of Alcohol and Drug Abuse Patient Records regulations: The Federal rules restrict any use of the information to criminally investigate or prosecute any alcohol or drug abuse patient.[facility] the event this information is protected by the Federal Confidentiality of Alcohol and Drug Abuse Patient Records regulations: The Federal rules restrict any use of the information to criminally investigate or prosecute any alcohol or drug abuse patient.[facility] Institute[facility] the event this information is protected by the Federal Confidentiality of Alcohol and Drug Abuse Patient Records regulations: The Federal rules restrict any use of the information to criminally investigate or prosecute any alcohol or drug abuse patient.[facility] Institute[facility] the event this information is protected by the Federal Confidentiality of Alcohol and Drug Abuse Patient Records regulations: The Federal rules restrict any use of the information to criminally investigate or prosecute any alcohol or drug abuse patient.[facility] the event this information is protected by the Federal Confidentiality of Alcohol and Drug Abuse Patient Records regulations: The Federal rules restrict any use of the information to criminally investigate or prosecute any alcohol or drug abuse patient.[facility] Institute[facility] the event this information is protected by the Federal Confidentiality of Alcohol and Drug Abuse Patient Records regulations: The Federal rules restrict any use of the information to criminally investigate or prosecute any alcohol or drug abuse patient.[facility] Institute[facility] the event this information is protected by the Federal Confidentiality of Alcohol and Drug Abuse Patient Records regulations: The Federal rules restrict any use of the information to criminally investigate or prosecute any alcohol or drug abuse patient.[facility] Institute[facility] the event this information is protected by the Federal Confidentiality of Alcohol and Drug Abuse Patient Records regulations: The Federal rules restrict any use of the information to criminally investigate or prosecute any alcohol or drug abuse patient.[facility] Institute[facility] the event this information is protected by the Federal Confidentiality of Alcohol and Drug Abuse Patient Records regulations: The Federal rules restrict any use of the information to criminally investigate or prosecute any alcohol or drug abuse patient.[facility] Institute[facility] the event this information is protected by the Federal Confidentiality of Alcohol and Drug Abuse Patient Records regulations: The Federal rules restrict any use of the information to criminally investigate or prosecute any alcohol or drug abuse patient.[facility] Reason for Visit (unrecogniz ed section and content) Reason Comments Abdominal cramping Alternating constipa tion/diarrhea, weight loss Specialty Diagnoses / Procedures Referred By Mauricio kaiser Referred To Contact Gastroenterology Diagnoses Abnormal intentional weight loss Alternating constipation and diarrhea Abdominal cramps Procedures CONSULT TO GASTROENTEROLOGY OFFICE/OUTPATIENT [facility] 60-74 MINUTES Margarito Smith MD [address] [place] [address] Referral ID Status Reason Start Date Expiration Date V isits Requested Visits Authorized [id number] Closed PCP Requested Referral 01/11/2022 01/11/2023 1 [...] of all toes of left foot Procedures [place] OFFICE/OUTPATIENT [facility] 60 MINUTES Scott Cuellar APRN - SILVERWARE BUFFING MACHINE OPERATOR [address] [address] [place] [address] Phone: tel: fax: [facility] [place] [address] [place] [address] Phone: tel: fax: Referral ID Status Reason Start Date Expiration Date V isits Requested Visits Authorized Closed Specialty Services Required 06/23/2025 06/23/2026 1 1 Reason Onset Date Comments Error (VOID this visit) 07/08/2025 Reason Comments New Patient (ref Scott Alisa N P) DIRECTOR [employer]ALITY [employer]S eval for mutliple complaints- poss Buerger's dz, no testing (requested ) Specialty Diagnoses / Procedures Referred By Mauricio kaiser Referred To Contact Vascular Surgery Diagnoses Cramp of both lower extremities Procedures [place] OFFICE/OUTPATIENT [facility] 60 MINUTES Scott Cuellar APRN - SILVERWARE BUFFING MACHINE OPERATOR [address] [place] [address] Phone: tel: fax: [facility] [place] [address] [place] [address] Phone: tel: fax: Referral ID Status Reason Start Date Expiration Date Visits Requested Visits Authorized Pending Review Specialty Services Required 07/08/2025 07/08/2026 1 1 Reason Comments Migraine Complains of migrain e on and off for 2 weeks and intermittent CP as well. Complains of throbbing in the left side of his mandaeism and throat. States that its not hurting [...] November 28, 2024 Dr. Harris Aviles DO Emergency Provider Active Start: November 28, 2024 End: November 28, 2024 Team Status: Inactive Member Role Status Dates Dr. Claude Cortes DO Emergency Provider Active Start: March 15, 2025 End: March 15, 2025 Dr. Elizabeth Argueta DO Primary Care Provider Active Start: March 15, 2025 End: March 15, 2025 Team Status: Inactive Member Role Status Dates Dr. Elizabeth Argueta , DO Primary Care Provider Active Start: March 16, 2025 End: March 16, 2025 Dr. Ari Walls , Referring Provider Active Start: March 16, 2025 End: March 16, 2025 Dr. Ari Walls , DO Emergency Provider Active Start: March 16, 2025 End: March 16, 2025 Team Status: Inactive Member Role Status Dates Dr. Elizabeth Argueta , Primary Care Provider Active Start: March 19, 2025 End: March 19, 2025 Dr. Matthias Tucker , Emergency Provider Active Start: March 19, 2025 End: March 19, 2025 Journeyman Welder Relationship Specialty Start Date End Date Shelly Izquierdo MD [address] [place] [address] PCP - General Internal Medicine 06/22/25 Journeyman Welder Relationship Specialty Start Date End Date Shelly Izquierdo MD [address] [place] [address] PCP - General Internal Medicine 06/22/25 Journeyman Welder Relationship Specialty Start Date End Date Shelly Izquierdo MD [address] [place] [address] PCP - General Internal Medicine 06/22/25 Scott Santamaria MD [address] [place] [address] Urology 06/27/25 Journeyman Welder Relationship Specialty Start Date End Date Shelly Izquierdo MD [address] [place] [address] PCP - General Internal Medicine 06/22/25 Scott Santamaria MD [address] [place] [address] Urology 06/27/25 Journeyman Welder Relationship Specialty Start Date End Date Shelly Izquierdo MD [address] [place] [address] PCP - General Internal Medicine 06/22/25 Scott Santamaria MD [address] [place] [address] Urology 06/27/25 Journeyman Welder Relationship Specialty Start Date End Date Shelly Izquierdo MD [address] [place] [address] [address] [place] [address] PCP - General Internal Medicine 06/22/25 Scott Santamaria MD [address] [place] [address] Urology 06/27/25 Journeyman Welder Relationship Specialty Start Date End Date Shelly Izquierdo MD [address] [place] [address] [address] [place] [address] PCP - General Internal Medicine 06/22/25 Scott Santamaria MD [address] [place] [address] Urology 06/27/25 Journeyman Welder Relationship Specialty Start Date End Date Shelly Izquierdo MD [facility] [place] [address] PCP - General Internal Medicine 06/22/25 Scott Santamaria MD [address] [place] [address] Urology 06/27/25 Journeyman Welder Relationship Specialty Start Date End Date Shelly Izquierdo MD [address] [place] [address] PCP - General Internal Medicine 06/22/25 Scott Santamaria MD [address] [place] [address] Urology 06/27/25 Journeyman Welder Relationship Specialty Start Date End Date Shelly Izquierdo MD [address] [place] [address] PCP - General Internal Medicine 06/22/25 Scott Santamaria MD [address] [place] [address] Urology 06/27/25 Joycelyn Ariza MD [address] [place] [address] Vascular Surgery 07/11/25 Journeyman Welder Relationship Specialty Start Date End Date Shelly Izquierdo MD [facility] [place] [address] PCP - General Internal Medicine 06/22/25 Scott Santamaria MD [address] [place] [address] Urology 06/27/25 Joycelyn Ariza MD [address] [place] [address] Vascular Surgery 07/11/25 Journeyman Welder Relationship Specialty Start Date End Date Shelly Izquierdo MD [address] [place], [place] [id number] PCP - General Internal Medicine 06/22/25 Scott Santamaria MD [address] [place] [address] Urology 06/27/25 Joycelyn Ariza MD [address] [place] [address] Vascular Surgery 07/11/25 Journeyman Welder Relationship Specialty Start Date End Date Generic Provider, No [place]igned [place] [address] PCP - General Tractor Crane Operator 07/18/25 Journeyman Welder Relationship Specialty Start Date End Date Shelly Izquierdo MD [address] [place] [address] PCP - General Internal Medicine 06/22/25 Scott Santamaria MD [address] [place] [address] Urology 06/27/25 Joycelyn Ariza MD [address] [place] [address] Vascular Surgery 07/11/25 Journeyman Welder Relationship Specialty Start Date End Date Shelly Izquierdo MD [address] [place], [place] [id number] PCP - General Internal Medicine 06/22/25 07/18/25 Scott Santamaria MD [address] [place] [address] Urology 06/27/25 Joycelyn Ariza MD [address] [place] [address] Vascular Surgery 07/11/25 Journeyman Welder Relationship Specialty Start Date End Date Scott Santamaria MD [address] [place] [address] Urology 06/27/25 Joycelyn Ariza MD [address] [place] [address] Vascular Surgery 07/11/25 Journeyman Welder Relationship Specialty Start Date End Date Scott Santamaria MD [address] [place] [address] Urology 06/27/25 Joycelyn Ariza MD [address] [place] [address] Vascular Surgery 07/11/25 Journeyman Welder Relationship Specialty Start Date End Date Scott Santamaria MD [address] [place] [address] Urology 06/27/25 Joycelyn Ariza MD [address] [place] [address] Vascular Surgery 07/11/25 Journeyman Welder Relationship Specialty Start Date End Date Scott Santamaria MD [address] [place] [address] Urology 06/27/25 Joycelyn Ariza MD [address] [place] [address] Vascular Surgery 07/11/25 Journeyman Welder Relationship Specialty Start Date End Date Scott Santamaria MD [address] [place] [address] Urology 06/27/25 Joycelyn Ariza MD [address] [place] [address] Vascular Surgery 07/11/25 Journeyman Welder Relationship Specialty Start Date End Date Shelly Izquierdo MD [address] [place] [address] PCP - General Internal Medicine 06/22/25 07/18/25 Scott Santamaria MD [address] [place] [address] Urology 06/27/25 Joycelyn Ariza MD [address] [place] [address] Vascular Surgery 07/11/25 Journeyman Welder Relationship Specialty Start Date End Date Carmen Hughes MD [address] [place] [address] PCP - General Internal Medicine 07/29/25 Journeyman Welder Relationship Specialty Start Date End Date Scott Santamaria MD [address] [place] [address] Urology 06/27/25 Joycelyn Ariza MD [address] [place] [address] Vascular Surgery 07/11/25 Journeyman Welder Relationship Specialty Start Date End Date Shelly Izquierdo MD [address] [facility] [address] [place] [address] PCP - General Internal Medicine 06/22/25 07/18/25 Scott Santamaria MD [address] [place] [address] Urology 06/27/[address] [place] [address] Vascular Surgery 07/11/25 Journeyman Welder Relationship Specialty Start Date End Date Scott Santamaria MD [address] [place] [address] Urology 06/27/[address] [place] [address] Vascular Surgery 07/11/25 Journeyman Welder Relationship Specialty Start Date End Date Shelly Izquierdo MD [address] [place] [address] [address] [place] [address] PCP - General Internal Medicine 06/22/25 07/18/25 Scott Santamaria MD [address] [place] [address] Urology 06/27/25 Joycelyn Ariza MD [address] [place] [address] Vascular Surgery 07/11/25 Journeyman Welder Relationship Specialty Start Date End Date Scott Santamaria MD [address] [place] [address] Urology 06/27/25 Joycelyn Ariza MD [address] [place] [address] Vascular Surgery 07/11/25 Journeyman Welder Relationship Specialty Start Date End Date Generic Provider, No Assigned [place] [address] PCP - General Tractor Crane Operator 09/29/25 Journeyman Welder Relationship Specialty Start Date End Date Joy Will MD [address] [place] [address] PCP - General Internal Medicine 10/05/25 Journeyman Welder Relationship Specialty Start Date End Date Alisa Scott [address] [facility] [address] [place] [address] PCP - General 07/12/25 Scheduled Active and Recently Administ ered Medications (unrecognized section and content) Medication Order 07/16/2025 07/17/2025 07/18/2025 fluconazole (Diflucan) tablet 150 mg (COMPLETED) 150 mg, oral, Once, On Fri07/18/25 at 2350, For 1 dose, Coverage: Shayla albicans, Infection Site: Oropharyngeal 2354 (Given - Provid er: Jacquelyn Elkins RN) gadoterate meglumine (Dotarem) 0.5 mmol/mL contrast injection 20 mL (COMPLETED) 20 mL, intravenous, Once in imaging, Starting on Fri07/18/25 at 2259, For 1 dose, Administer undiluted as rapid I.V. bolus injection 2258 (Given - Provid er: Belem Cerda) FOR [...] BE BASED ON THE PRIMARY CLINICAL RECORDS. [employer] [facility]. provides no warranty or guarantee of the accuracy or completeness of information in this document.
[2025-11-27 21:05] VITALS: BP 153/94; PULSE 123; RESP 18; TEMP 36.6; O2SAT 99
== END 2025-11-27 21:06 | disposition home or self-care (01) ==
PROVIDERS: Emergency Provider Emergency Medicine; Visit Provider Emergency Medicine
DX: R07.9 Chest pain, unspecified (principal); F31.9 Bipolar disorder, unspecified; R00.0 Tachycardia, unspecified; R00.2 Palpitations; F42.9 Obsessive-compulsive disorder, unspecified; I10 Essential (primary) hypertension; F17.210 Nicotine dependence, cigarettes, uncomplicated; Z79.899 Other long term (current) drug therapy
CPT/HCPCS: 93005; 99283; A4216